=== PATIENT | female | born 1955 | race Caucasian/White ===

== ENCOUNTER 2016-07-17 16:07 | Inpatient (IN) | payer OTHER ==
[~2016-07-17] VITALS: Ht 170.2 cm; Wt 79.8 kg
[2016-07-17] MEDS ORDERED: CALC667C PO (16:41)
[2016-07-17] MEDS ORDERED: NIFE60TA7 PO (16:41)
[2016-07-17] MEDS ORDERED: BENA40TA41 PO (16:42)
[2016-07-17] MEDS ORDERED: LEVO125T75 PO (16:42)
[2016-07-17] MEDS ORDERED: PYRI50TA14 PO (16:43)
[2016-07-17] MEDS ORDERED: ISON300T72 PO (16:44)
[2016-07-17] MEDS ORDERED: PENT400T2 PO (16:44)
[2016-07-17] MEDS ORDERED: ONDANSETRON 4 MG INJ IV STA (16:45)
[2016-07-17] MEDS ORDERED: FER325 PO (16:45)
[2016-07-17] MEDS ORDERED: ACETAMINOPHEN 500 MG TAB PO STA (16:46)
[2016-07-17 17:08] LABS: ADD SCAN DIFF NO
[2016-07-17 17:11] LABS: ABNORMAL IP MESSAGE 1; HEMOGLOBIN 10.1 g/dl (12.0-16.0); MEAN CORPUSCULAR HEMOGLOBIN 28.9 pg (29.0-33.0); MEAN CORPUSCULAR HGB CONC 32.6 g/dl (32.0-37.0); MEAN CORPUSCULAR VOLUME 88.8 fl (82.0-101.0); MEAN PLATELET VOLUME 11.2 fl (7.4-10.4); PLATELET COUNT 213 10^3/UL (140-415); RED BLOOD COUNT 3.49 10^6/ul (4.20-5.40); RED CELL DISTRIBUTION WIDTH 14.2 % (11.5-14.5); WHITE BLOOD COUNT 10.5 10^3/ul (4.8-10.8)
[2016-07-17 17:24] LABS: ALBUMIN 3.7 g/dl (3.3-4.9); CHLORIDE 94 mmol/L (97-110)
[2016-07-17 17:25] LABS: POTASSIUM 4.3 mmol/L (3.5-5.1); SODIUM 140 mmol/L (135-144)
[2016-07-17 17:27] LABS: ALANINE AMINOTRANSFERASE 40 IU/L (13-69); ALKALINE PHOSPHATASE 264 IU/L (42-121); ANION GAP 20 (8-16); ASPARTATE AMINO TRANSFERASE 64 IU/L (15-46); BILIRUBIN,INDIRECT 0.1 mg/dl (0-1.1); BILIRUBIN,TOTAL 0.1 mg/dl (0.2-1.3); BLOOD UREA NITROGEN 21 mg/dl (7-20); CARBON DIOXIDE 30 mmol/L (21-31); CREATININE 2.89 mg/dl (0.44-1.00); TOTAL PROTEIN 7.4 g/dl (6.1-8.1)
[2016-07-17 17:28] LABS: CALCIUM 8.2 mg/dl (8.4-10.2); GLUCOSE 135 mg/dl (70-220)
--- NOTE | 2016-07-17 17:30 | RADRPT ---
PROCEDURE: Chest Radiograph. CLINICAL INDICATION: Chest pain TECHNIQUE: Single frontal chest radiograph. COMPARISON: None available FINDINGS: A right chest wall tunneled hemodialysis catheters in place with distal tip in the region of the sup erior vena cava. The cardiomediastinal silhouette is within normal limits. No infiltrate or effus ion is seen. The bones are intact. IMPRESSION: 1. No evidence of acute cardiopulmonary disease. 2. Right chest wall tunneled hemodialysis catheter. RPTAT: HJBF .Nba Flynn MD, MD Date Time Electronically viewed and signed by .Nba Flynn MD, MD on 07/17/2016 17:30 .B/
[2016-07-17 17:42] LABS: TROPONIN-I < 0.012 ng/ml (0.00-0.12)
[2016-07-17 17:46] LABS: LYMPHOCYTES # 0.4 10^3/ul (0.8-2.9); NEUTROPHIL # 8.8 10^3/ul (1.6-7.5)
[2016-07-17 17:48] LABS: PLATELET ESTIMATE PLT APPEAR ADEQUATE
[2016-07-17] MEDS ORDERED: CEFEPIME 2GM/50 ML (PMX) 50 ML IVPB STA (18:08)
[2016-07-17] MEDS ORDERED: SODIUM CHLORIDE 0.9% 1L BAG IV* STA (18:08)
[2016-07-17] MEDS ORDERED: VANCOMYCIN 1 GM (PMX) 250 ML IVPB ONE (18:30)
--- NOTE | 2016-07-17 19:43 | ERA ---
ER Documentation Chief Complaint Date/Time DATE: 07/17/16 TIME: 19:37 Chief Complaint weakness, chills after dialysis HPI This is a [id number] female who is on dialysis and states that for the past few weeks every time she gets dialysis approximately 8 hours later she will develop a fever and chills and nausea. She says these symptoms will last for several hours and go away. She said that she told the dialysis center about the symptoms but that nothing is being investigated. She has no cough no headache no abdominal pain no vomiting no diarrhea no runny nose no sore throat. She does have a general feeling of malaise. Patient started dialysis in February 2016 ROS All systems reviewed and are negative except as per history of present illness. Medications Home Meds Reported Medications Ferrous Sulfate* (Ferrous Sulfate*) 325 Mg Tabec, 325 MG PO TID, TAB 07/17/16 Pentoxifylline* (Pentoxifylline*) 400 Mg Tablet.sa, 400 MG PO DAILY, TAB 07/17/16 Isoniazid* (Isoniazid*) 300 Mg Tablet, 300 MG PO DAILY, TAB 07/17/16 Pyridoxine Hcl* (Pyridoxine Hcl*) 50 Mg Tablet, 50 MG PO DAILY, TAB 07/17/16 Levothyroxine Sodium* (Levothyroxine Sodium*) 125 Mcg Tablet, 125 MCG PO BEFORE BREAKFAST, #30 TAB 07/17/16 Benazepril Hcl* (Benazepril Hcl*) 40 Mg Tablet, 40 MG PO DAILY, #30 TAB 07/17/16 Calcium Acetate* (Calcium Acetate*) 667 Mg Capsule, 1334 MG PO WITH MEALS, #30 CAP 07/17/16 Nifedipine* (Nifedipine ER*) 60 Mg Tablet.sa, 60 MG PO DAILY, TAB.SA 07/17/16 Allergies Allergies: Coded Allergies: No Known Allergy (Unverified , 07/17/16) PMhx/Soc Medical and Surgical Hx: pt denies Surgical Hx History of Surgery: No Hx Cardiac Disorders: Yes (HTN) Hx Miscellaneous Medical Probl: Yes (DM) Hx Alcohol Use: No Hx Substance Use: No Hx Tobacco Use: No Smoking Status: Never smoker FmHx Family History: No coronary disease Physical Exam Vitals Vital Signs Date Time Temp Pulse Resp B/P Pulse Ox O2 Delivery O2 Flow Rate FiO2 07/17/16 18:05 102.6 84 22 184/80 100 Room Air 07/17/16 16:39 95 20 198/80 99 Room Air 07/17/16 16:20 102.3 99 22 207/92 99 Physical Exam Const: Well-developed, well-nourished Head: Atraumatic, normocephalic Eyes: Normal Conjunctiva, PERRLA, EOMI, normal sclera, no nystagmus ENT: Normal External Ears, Nose and Mouth, moist mucus membranes. Neck: Full range of motion. No meningismus, no lymphadenopathy. Resp: Clear to auscultation bilaterally, no wheezing, rhonchi, rales Cardio: Regular rate and rhythm, no murmurs, S1 S2 present Abd: Soft, non tender x 4, non distended. Normal bowel sounds, no guarding or rebound, no pulsitile abdominal masses or bruits Skin: No petechiae or rashes, no ecchymosis , no maculopapular rash Back: No midline or flank tenderness Ext: No cyanosis, or edema, FROM x 4, normal inspection, neurovascularly intact x 4 Neur: Awake and alert, STR 5/5 x 4, sensation intact x 4, no focal findings, cerebellum intact Psych: Normal Mood and Affect Result Diagram: 07/17/16 1650 07/17/16 1650 Results 24 hrs Laboratory Tests Test 07/17/16 16:50 Alanine Aminotransferase (ALT/SGPT) 40IU/L Albumin 3.7g/dl Albumin/Globulin Ratio 1.00 Alkaline Phosphatase 264IU/L Anion Gap 20 Aspartate Amino Transf (AST/SGOT) 64IU/L Band Neutrophils % 11.0% Blood Urea Nitrogen 21mg/dl Calcium Level 8.2mg/dl Carbon Dioxide Level 30mmol/L Chloride Level 94mmol/L Creatinine 2.89mg/dl Direct Bilirubin 0.00mg/dl Globulin 3.70g/dl Glucose Level 135mg/dl Hematocrit 31.0% Hemoglobin 10.1g/dl Indirect Bilirubin 0.1mg/dl Lactic Acid Level 3.1mmol/L Large Platelets FEW Lymphocytes # 0.410^3/ul Lymphocytes % 4.0% Mean Corpuscular Hemoglobin 28.9pg Mean Corpuscular Hemoglobin Concent 32.6g/dl Mean Corpuscular Volume 88.8fl Mean Platelet Volume 11.2fl Metamyelocytes # 0.1 Metamyelocytes % 1.0% Neutrophils # 8.810^3/ul Neutrophils % 84.0% Platelet Count 09653^3/UL Platelet Estimate PLT APPEAR ADEQUATE Potassium Level 4.3mmol/L Red Blood Count 3.4910^6/ul Red Cell Distribution Width 14.2% Sodium Level 140mmol/L Total Bilirubin 0.1mg/dl Total Protein 7.4g/dl Troponin I < 0.012ng/ml White Blood Count 10.510^3/ul Current Medications Medications (Trade) Dose Ordered Sig/Aries Route PRN Reason Start Time Stop Time Status Last Admin Dose Admin Ondansetron HCl (Zofran Inj) 4 mg ONCE STAT IV 07/17/16 16:45 07/17/16 16:47 DC 07/17/16 17:01 Acetaminophen (Tylenol Tab) 1,000 mg ONCE STAT PO 07/17/16 16:46 07/17/16 16:48 DC 07/17/16 17:01 Sodium Chloride 2420 ml 2,420 ml BOLUS OVER 2 HOURS STAT IV* 07/17/16 18:08 07/17/16 18:13 DC 07/17/16 18:44 Cefepime HCl 50 ml @ 100 mls/hr ONCE STAT IVPB 07/17/16 18:08 07/17/16 18:37 DC 07/17/16 18:53 Vancomycin HCl (Vancocin) 250 ml @ 125 mls/hr ONCE ONCE IVPB 07/17/16 18:30 07/17/16 20:29 07/17/16 19:33 Procedures/MDM PROCEDURE: Chest Radiograph. CLINICAL INDICATION: Chest pain TECHNIQUE: Single frontal chest radiograph. COMPARISON: None available FINDINGS: A right chest wall tunneled hemodialysis catheters in place with distal tip in the region of the superior vena cava. The cardiomediastinal silhouette is within normal limits. No infiltrate or effusion is seen. The bones are intact. IMPRESSION: 1. No evidence of acute cardiopulmonary disease. 2. Right chest wall tunneled hemodialysis catheter. RPTAT: HJBF .Nba Flynn MD, MD Date Time Electronically viewed and signed by .Nba Flynn MD, MD on 2016 17:30 .B/ CC: CRESCENCIO ART DO Pending patient's urine cath assuming she makes little urine. Possibly UTI. Very strange pattern of fever after dialysis. I doubt this could be line sepsis but is a possibility. Her lactic acid level is elevated at 3.1 meeting criteria for sepsis and the patient is febrile. Will admit the patient for sepsis workup. She is getting sepsis fluid resuscitation even though she is a dialysis patient will monitor this closely and watch for volume overload due to aggressive fluids if this does occur I will hold fluid resuscitation EKG: Rate/Rhythm: Normal Sinus Rhythm,NL intervals QRS, ST, QT: NORMAL IL, QRS, QT] Impression: NORMAL EKG Admit MDM: Patient's infectious symptoms have not stabilized and the patient is at risk of rapid decompensation. The patient will be admitted for careful hydration, antibiotic therapy, and infectious source control. Severe Sepsis criteria: Infectious source: Unknown possibly line End organ damage indicated by: [Elevated lactate, chronic renal failure Lactate > 2.0 mmol/L Hypotension (SBP < 90 or >40 mmHG drop or MAP < 65) Acute Resp Failure (sat < 92% w/o oxygen) [employer] > 2.0 INR > 1.5 Plt < 100 Bili > 2 Sepsis Management: Time of recognition of severe sepsis/septic shock: 1800 cathy] Within 3 hours of recognition: Blood cultures x 2 before broad-spectrum antibiotics: [xYes 30 ml/kg NS bolus yes completed Initial lactate 3.1 Repeat lactate pending ot indicated as initial lactate < 2.0 Septic Shock Assessment: Any lactic acid > 4.0 ]No Persistent hypotension (SBP < 90 or 40 mmHg drop, MAP < 65) despite 30 mL/kg IV fluid bolus ]No Accepting Care Team Current data and ongoing care discussed. Time: [2014] Admitting Physician: [duncan] Tire Repairman(s): Outstanding Data: []None Critical Care Time: 30 minutes Treatments/Evaluations: Close monitoring and treatment of unstable vital signs, cardiorespiratory, and neurologic status, while maintaining tight balance of fluid, respiratory, and cardiac interventions. This includes the administration of emergency fluid management while maintaining close respiratory support as well as the provision of immediate and broad-spectrum antibiotic therapy, while performing a simultaneous assessment for possible sources in order to direct targeted therapy. This time includes discussing the case with the patient and the patient's family. This time also includes the consideration for invasive and chemical support to prevent cardiopulmonary collapse. This time does not include all procedures stated elsewhere in this record. This time also includes reviewing old records, labs and radiological studies. This time includes examining and re-examining the patient. Additionally, this time also includes arranging care with admitting and consulting physicians. Departure Diagnosis: Primary Impression: Sepsis Qualified Code: A41.9 - Sepsis, due to unspecified organism Condition: Stable CRESCENCIO ART DO Jul 17, 2016 19:42
[2016-07-17] MEDS ORDERED: SOD CHLORIDE 0.9% 1,000 ML IV SCH (20:10)
[2016-07-17] MEDS ORDERED: ACETAMINOPHEN 325 MG TAB PO PRN (20:30)
[2016-07-17] MEDS ORDERED: ONDANSETRON 4 MG INJ IV PRN (20:30)
[2016-07-17] MEDS ORDERED: NA PHOSPHATE/BIPHOS 133 ML ENEMA PR PRN (21:00)
[2016-07-17] MEDS ORDERED: NACL 0.9% 3 ML SYG IV SCH (21:00)
[2016-07-17] MEDS ORDERED: NITROGLYCERIN (SL) 0.4 MG TAB SL PRN (21:00)
[2016-07-17] MEDS ORDERED: LORAZEPAM 2 MG INJ IV PRN (21:00)
[2016-07-17] MEDS ORDERED: MAGNESIUM HYDROXIDE 30ML CUP PO PRN (21:00)
[2016-07-17] MEDS ORDERED: DOCUSATE SODIUM 100 MG CAP PO PRN (21:00)
[2016-07-17] MEDS ORDERED: VANCOMYCIN IV PER PHARMACY XX SCH (21:00)
[2016-07-17] MEDS ORDERED: ALBUTEROL/IPRATROPIUM (NEB) 3 ML AMP HHN PRN (21:00)
[2016-07-17 22:00] VITALS: TEMP 99.4
[2016-07-17 22:55] VITALS: PULSE 74
[2016-07-17 23:00] VITALS: Ht 170.2 cm; Wt 79.8 kg
[2016-07-17] MEDS: FERROUS SULFATE (EC) 325 MG TAB PO SCH (23:35)
[2016-07-17] MEDS: HEPARIN 5,000 UNIT/0.5 ML SYG SC SCH (23:35)
[2016-07-17] MEDS: SOD CHLORIDE 0.9% 1,000 ML IV SCH (23:36)
[2016-07-18] VITALS (12 sets, daily range): BP systolic 123–200; BP diastolic 59–93; PULSE 62–72; RESP 17–21
[2016-07-18] MEDS ORDERED: GLUCOSE GEL 15 GRAM TUBE PO PRN ×2 (05:30)
[2016-07-18] MEDS ORDERED: GLUCOSE GEL 15 GRAM TUBE BUCCAL PRN (05:30)
[2016-07-18] MEDS ORDERED: GLUCAGON 1 MG INJ IM PRN (05:30)
[2016-07-18] MEDS ORDERED: DEXTROSE 50% 50 ML SYRINGE IV PRN ×2 (05:30)
--- NOTE | 2016-07-18 06:20 | HP ---
DATE OF ADMISSION: 07/17/2016 The patient was seen and examined by me on 07/17/2016 at 8:40 p.m. A 60-year-old female. CHIEF COMPLAINT: Weakness and chills after dialysis. HISTORY OF PRESENT ILLNESS: This is a 60-year-old female with past medical history of end-stage lele al disease on dialysis, type 2 diabetes who has been having weakness and chill symptoms apparently f or the past few weeks every time after dialysis. The patient has been developing fever and chills. This has occurred over the last few dialysis sessions over the last few weeks. She also has some n ausea symptoms. The symptoms appear to last for several hours and then go away. She apparently inf ormed the dialysis center about her symptoms, but no further workup was performed. The patient did start dialysis in February of 2016 for end-stage renal disease. She is also having malaise symptoms. No vomiting, no sore throat, no diarrhea, no constipation, no fevers or chills. When she came int o the ER today, however, she did have a temperature of 102.3. She is also hypertensive urgency. Sy stolic blood pressure was in the 200s and blood tests were performed initially that showed elevated lactic acid of 3.1 and the patient was given IV fluids and IV antibiotics in the ER. PAST MEDICAL HISTORY: As above. ALLERGIES: NO KNOWN DRUG ALLERGIES. MEDICATIONS AT HOME: 1. Isoniazid 300 mg daily. 2. Ferrous sulfate 325 mg t.i.d. 3. Pentoxifylline 400 mg daily. 4. Benazepril 40 mg daily. 5. Nifedipine ER 60 mg daily. 6. Calcium acetate 1300 mg with meals. 7. Levothyroxine 125 mcg before breakfast. 8. Pyridoxine 50 mg daily. PAST SURGICAL HISTORY: None. SOCIAL HISTORY: Negative for smoking, drinking, or IV drug abuse. FAMILY HISTORY: Noncontributory. PHYSICAL EXAMINATION: VITAL SIGNS: Today, T-max 102.6, pulse 84 to 99, respirations 20 to 22, blood pressure 207 to 184 s ystolic over 92 to 80 diastolic, saturating at 100% on room air. GENERAL: The patient is lying in bed, answering questions appropriately. No acute distress. HEENT: Pupils equal, round, react to light. Extraocular muscles intact. NECK: Supple, no thyromegaly. LUNGS: Clear to auscultation bilaterally. CARDIOVASCULAR: S1, S2 heard. No rubs or gallops. ABDOMEN: Soft, nontender, nondistended. Normal bowel sounds. No rebound or guarding. MUSCULOSKELETAL: No lower extremity edema bilaterally. NEUROLOGIC: No focal deficits. LABORATORIES: CBC is completely normal. The sodium 140, potassium 4.3, chloride 94, CO2 30, BUN 21 , creatinine 2.89, glucose 135. Lactic acid 3.1. LFTs are essentially normal, although the AST is a little high at 64, alkaline phosphatase is 264. IMAGING: The patient had a chest x-ray that showed no evidence of any acute cardiopulmonary disease . ASSESSMENT AND PLAN: A 60-year-old female coming in with weakness and nausea after dialysis with si gns of fever and lactic acidosis, unclear source. 1. Sepsis. Again, the patient has elevated temperature and elevated lactic acid levels. Chest x-r ay did not show any signs of any overt respiratory infection, unclear source of the patient's lactic acidosis, so for now, we will put her on broad spectrum antibiotics. We will follow up UA results and urine culture results, and check blood culture results as well. Ideally would like to have a so urce for starting antibiotics, but the patient will need treatment. The patient apparently may need treatment at this point. Will continue to trend her lactic acid, give her aggressive IV fluid resu scitation as well. Follow up TSH, A1c, and lipid panels as well. Continue IV fluids. Get an infec tious disease consult as well. 2. End-stage renal disease on dialysis. Will get a renal consult as well. 3. Questionable history of tuberculosis. The patient apparently has been taking Isoniazid and ronaldo min B6 as well. Continue to monitor for now. Consider checking PPD. We are trying to obtain medic al records for further investigation of this. 4. Deep venous thrombosis prophylaxis, heparin. 5. Gastrointestinal prophylaxis. Proton pump inhibitor. 6. Type 2 diabetes, again with sliding scale insulin. Check A1c as well. We will also consider ph ysical therapy consult as well. Dictated By: LUIS ENRIQUE RIOS Conf#: [id number] DID#: [id number]
[2016-07-18] MEDS: LEVOTHYROXINE 125 MCG TAB PO SCH (06:25)
[2016-07-18] MEDS: ACETAMINOPHEN 325 MG TAB PO PRN ×2 (06:36→08:28)
[2016-07-18 07:04] LABS: ADD SCAN DIFF NO
[2016-07-18 07:20] LABS: BASOPHIL # 0.1 10^3/ul (0.0-0.1); BASOPHILS % 0.3 % (0.0-2.0); EOSINOPHILS # 0.2 10^3/ul (0.0-0.5); EOSINOPHILS % 0.8 % (0.0-7.0); HEMATOCRIT 26.7 % (37.0-47.0); HEMOGLOBIN 8.5 g/dl (12.0-16.0); LYMPHOCYTES % 4.8 % (15.0-51.0); MEAN CORPUSCULAR HEMOGLOBIN 29.1 pg (29.0-33.0); MEAN CORPUSCULAR HGB CONC 31.8 g/dl (32.0-37.0); MEAN CORPUSCULAR VOLUME 91.4 fl (82.0-101.0); MEAN PLATELET VOLUME 11.4 fl (7.4-10.4); MONOCYTE # 1.4 10^3/ul (0.3-0.9); MONOCYTES % 6.6 % (0.0-11.0); NEUTROPHIL # 18.3 10^3/ul (1.6-7.5); NEUTROPHILS % 86.7 % (39.0-77.0); PLATELET COUNT 188 10^3/UL (140-415); RED BLOOD COUNT 2.92 10^6/ul (4.20-5.40); RED CELL DISTRIBUTION WIDTH 14.9 % (11.5-14.5); WHITE BLOOD COUNT 21.1 10^3/ul (4.8-10.8)
[2016-07-18] MEDS ORDERED: INSULIN ASPART [NOVOLOG] 3 ML PEN SC SCH ×2 (07:30→09:00)
[2016-07-18] MEDS: Insulin NOVOLOG SS MILD Algorithm (SS with meals and bedtime) SC SCH ×4 (07:35→20:50)
[2016-07-18 07:43] LABS: THYROID STIMULATING HORMONE 3.98 MIU/L (0.465-4.680)
[2016-07-18 08:00] LABS: POTASSIUM 4.8 mmol/L (3.5-5.1)
[2016-07-18 08:02] LABS: CREATININE 4.02 mg/dl (0.44-1.00)
[2016-07-18 08:03] LABS: CALCIUM 7.2 mg/dl (8.4-10.2); MAGNESIUM 1.8 mg/dl (1.7-2.5)
[2016-07-18] MEDS: ISONIAZID 300 MG TAB PO SCH (08:27)
[2016-07-18] MEDS: PYRIDOXINE 50 MG TAB PO SCH (08:27)
[2016-07-18] MEDS: SOD CHLORIDE 0.9% 1,000 ML IV SCH ×2 (08:29→17:31)
[2016-07-18] MEDS: FERROUS SULFATE (EC) 325 MG TAB PO SCH ×3 (08:29→20:46)
[2016-07-18] MEDS: CALCIUM ACETATE 667 MG CAP PO SCH ×3 (08:29→17:31)
[2016-07-18] MEDS: PENTOXIFYLLINE (SR) 400 MG TAB PO SCH (08:33)
[2016-07-18] MEDS: HEPARIN 5,000 UNIT/0.5 ML SYG SC SCH ×2 (08:34→20:47)
[2016-07-18 08:48] LABS: ADD UMIC YES; URINE BILIRUBIN (Dip) NEGATIVE (NEGATIVE); URINE BLOOD (Dip) NEGATIVE (NEGATIVE); URINE COLOR LT. YELLOW (YELLOW); URINE KETONES (Dip) NEGATIVE (NEGATIVE); URINE LEUKOCYTE ESTERASE (Dip) NEGATIVE (NEGATIVE); URINE NITRITE (Dip) NEGATIVE (NEGATIVE); URINE TOTAL PROTEIN (Dip) 4+ (NEGATIVE); URINE UROBILINOGEN (Dip) 0.2 E.U./dL (0.1-1.0)
--- NOTE | 2016-07-18 09:49 | CONS ---
DATE OF ADMISSION: 07/17/2016 DATE OF CONSULTATION: REASON FOR CONSULTATION: End-stage renal disease. REQUESTING PHYSICIAN: Manav Patton MD HISTORY OF PRESENT ILLNESS: This is a 60-year-old female with a past medical history of end-stage r enal disease on dialysis Saturday, , Saturday; history of diabetes, history of hypertension w ho presents to [facility] with chills after hemodialysis. The patient states over the last several weeks during the course of dialysis and after dialysis patient develops fevers, ch ills associated with some nausea. The symptoms go away after several hours. The patient informed h er dialysis center of her symptoms; however, but no workup was done. The patient as a result came i [facility] for ongoing fevers and chills. While at [facility] on admission the patient was febrile with a temperature of 102.6. The patient was started on bro ad spectrum antibiotics and admitted to telemetry. Chest x-ray was performed in the emergency room which showed no acute findings. In terms of patient's renal history, the patient was initiated on hemodialysis in February for diabet es, hypertension and she has been going to [facility] in outpatient center. There have been no repo rts of hemoptysis, hemetemesis, hematochezia. PAST MEDICAL HISTORY: As stated above, history of end-stage renal disease, hypertension, diabetes, mineral bone disorder, anemia. PAST SURGICAL HISTORY: Status post PermCath placement. ALLERGIES: NO KNOWN DRUG ALLERGIES. MEDICATIONS: Patient's medications have been reviewed. SOCIAL HISTORY: Does not drink, smoke or do drugs. FAMILY HISTORY: Noncontributory. REVIEW OF SYSTEMS: A 14-point review of systems was conducted. Pertinent positives stated in HPI, otherwise negative. PHYSICAL EXAMINATION: VITAL SIGNS: Blood pressure 123/59, respirations 17, pulse 73, temperature 99.6. HEENT: Head is normocephalic. Pupils are reactive to light. NECK: Supple. HEART: Regular rate. LUNGS: Show diminished breath sounds at the base. ABDOMEN: Soft, nontender to palpation without rebound or guarding. EXTREMITIES: Negative for clubbing, cyanosis. No edema. DERMATOLOGIC: No rashes. MUSCULOSKELETAL: No joint effusions. NEUROLOGIC: No focal deficits. CHEST: The patient has a PermCath that is clean, dry and intact, nontender. LABORATORY DATA: Shows sodium 140, potassium 4. , chloride 102, BUN 27, creatinine 4.02, phosph orus 5.0, calcium 7.2. White count 21.1, hemoglobin 8.5, hematocrit 26.7, platelet count is 188. ASSESSMENT AND PLAN: This is a 60-year-old female who presents with: 1. End-stage renal disease. The patient is on dialysis Saturday, , Saturday, last hemodialy sis was yesterday. Anticipate hemodialysis tomorrow for 3 hours, 2K bath, calcium 2.5. 2. Sepsis, concerning for possible line infection. The patient's clinical symptoms are consistent with line infection as she develops her symptoms following dialysis. Plan is to check blood culture s from the dialysis catheter. We will check peripheral cultures. If patient continues to have ongo ing symptoms will have PermCath removed if blood cultures are noted to be positive. 3. Anemia of chronic disease. Continue to monitor H and H levels. Give Epogen following dialysis. 4. Mineral bone disorder. We will monitor calcium and phosphorus levels. Continue phos binder. 5. Hypertension. Continue current blood pressure regimen. 6. Diabetes, continue Accu-Cheks and sliding scale. 7. Gastrointestinal and deep venous thrombosis prophylaxis. Continue proton pump inhibitor and hep reinaldo. Thank you, Dr. Patton, for this interesting consult. It will be a pleasure to follow the patient with you throughout the hospital course. Dictated By: LY MENDEZ/FADUMO Conf#: [id number] DID#: [id number]
[2016-07-18 09:52] LABS: URINE RBCS NONE SEEN /HPF ([, 0])
--- NOTE | 2016-07-18 12:24 | PN ---
Date/Time of Note Date/Time of Note DATE: 07/18/16 TIME: 12:12 Assessment/Plan VTE Prophylaxis VTE Prophylaxis Intervention: heparin Lines/Catheters IV Catheter Type (from Nrs): Saline Lock Assessment/Plan Assessment/Plan 1. Bacteremia, gram negative aziza, on antibiotics, follow up with final culture 2. Sepsis, on antibiotics 3. End-stage renal disease. TTS 4. Anemia of chronic kidney disease. follow up with H/H 5. Mineral bone disorder. We will monitor calcium and phosphorus levels. Continue phos binder. 6. Hypertension. Continue current blood pressure regimen. 7. Diabetes, continue Accu-Cheks and sliding scale. 8. Gastrointestinal and deep venous thrombosis prophylaxis. Continue proton pump inhibitor and heparin. Subjective 24 Hr Interval Summary Free Text/Dictation no pain. no dysuria Exam/Review of Systems Vital Signs Vitals Vital Signs Date Time Temp Pulse Resp B/P Pulse Ox O2 Delivery O2 Flow Rate FiO2 07/18/16 11:49 98.4 69 18 172/77 100 07/18/16 00:01 2.0 07/17/16 21:13 Nasal Cannula Intake and Output 07/17/16 07/17/16 07/18/16 15:00 23:00 07:00 Intake Total 300 ml 1384 ml Balance 300 ml 1384 ml Exam Constitutional: alert, oriented, well developed Psych: nl mood/affect, no complaints Head: atraumatic, normocephalic Eyes: EOMI, nl conjunctiva, nl lids ENMT: nl external ears & nose, nl lips & teeth, nl nasal mucosa & septum Neck: non-tender, supple Respiratory: clear to auscultation, normal air movement, No congested cough, No crackles/rales, No diminished breath sounds, No intercostal retraction, No labored breathing, No other, No respirations, No tactile fremitus, No wheezing Cardiovascular: nl pulses, regular rate and rhythm, No S3, No S4, No bruits, No diastolic murmur, No edema, No gallop, No irregular rhythm, No jugular venous distention (JVD), No murmurs/extra sounds, No other, No rub, No systolic murmur Gastrointestinal: nl liver, spleen, non-tender, soft, No ascites, No bowel sounds, No distended, No firm, No hepatomegaly, No mass , No other, No rebound or guarding, No splenomegaly, No surgical scars, No tender Musculoskeletal: nl extremities to inspection Extremities: normal pulses, No calf tenderness, No clubbing, No cyanosis, No edema, No other, No palpable cord, No pitting pedal edema, No tenderness Neurological: COMPUT[employer] PROFESSIONAL II-XII intact, nl mental status, nl speech, nl strength Skin: nl turgor Lymph: nl lymph nodes Results Result Diagram: 07/18/16 0500 07/18/16 0500 Results 24 hrs Laboratory Tests Test 07/17/16 16:50 07/17/16 19:50 07/17/16 22:06 07/18/16 05:00 Alanine Aminotransferase (ALT/SGPT) 40 Albumin 3.7 Albumin/Globulin Ratio 1.00 Alkaline Phosphatase 264 H Anion Gap 20 H 16 Aspartate Amino Transf (AST/SGOT) 64 H Band Neutrophils % 11.0 H Blood Urea Nitrogen 21 H 26 H Calcium Level 8.2 L 7.2 L Carbon Dioxide Level 30 27 Chloride Level 94 L 102 Creatinine 2.89 H 4.02 #H Direct Bilirubin 0.00 Globulin 3.70 H Glucose Level 135 93 # Hematocrit 31.0 L 26.7 L Hemoglobin 10.1 L 8.5 L Indirect Bilirubin 0.1 Lactic Acid Level 3.1 H 2.7 H 2.4 H Large Platelets FEW Lymphocytes # 0.4 L 1.0 Lymphocytes % 4.0 L 4.8 L Mean Corpuscular Hemoglobin 28.9 L 29.1 Mean Corpuscular Hemoglobin Concent 32.6 31.8 L Mean Corpuscular Volume 88.8 91.4 Mean Platelet Volume 11.2 H 11.4 H Metamyelocytes # 0.1 Metamyelocytes % 1.0 H Neutrophils # 8.8 H 18.3 H Neutrophils % 84.0 H 86.7 H Platelet Count 213 188 Platelet Estimate PLT APPEAR ADEQUATE Potassium Level 4.3 4.8 Red Blood Count 3.49 L 2.92 L Red Cell Distribution Width 14.2 14.9 H Sodium Level 140 140 Total Bilirubin 0.1 L Total Protein 7.4 Troponin I < 0.012 White Blood Count 10.5 21.1 #H Free Thyroxine 1.10 Basophils # 0.1 Basophils % 0.3 Eosinophils # 0.2 Eosinophils % 0.8 Magnesium Level 1.8 Monocytes # 1.4 H Monocytes % 6.6 Nucleated Red Blood Cells # 0.0 Nucleated Red Blood Cells % 0.0 Phosphorus Level 5.0 H Test 07/18/16 05:52 07/18/16 06:40 07/18/16 07:58 07/18/16 11:58 Cholesterol Level 203 H Cholesterol/HDL Ratio 7.0 HDL Cholesterol 29 L Hemoglobin A1c 8.1 H LDL Cholesterol, Calculated 142 Thyroid Stimulating Hormone (TSH) 3.980 Triglycerides Level 159 H Urine Bilirubin NEGATIVE Urine Clarity CLEAR Urine Color LT. YELLOW Urine Epithelial Cells OCCASIONAL Urine Glucose 0.1% H Urine Hemoglobin NEGATIVE Urine Ketones NEGATIVE Urine Leukocyte Esterase NEGATIVE Urine Microscopic RBC NONE SEEN Urine Microscopic WBC NONE SEEN Urine Nitrite NEGATIVE Urine Specific [place] 1.015 Urine Total Protein 4+ H Urine Urobilinogen 0.2 E.U./dL Urine pH 7.0 Bedside Glucose 100 145 Medications Medications Current Medications Ondansetron HCl (Zofran Inj) 4 mg Q6H PRN IV NAUSEA AND/OR VOMITING; Start at 21:00 Acetaminophen (Tylenol Tab) 650 mg Q6H PRN PO PAIN LEVEL 1-3 OR FEVER Last administered on 07/18/16 08:28; Admin Dose 650 MG; Start 07/17/16 at 21:00 Acetaminophen/ Hydrocodone Bitart ([place] (5/325)) 1 tab Q6H PRN PO MODERATE PAIN LEVEL 4-6; Start 07/17/16 at 21:00 Morphine Sulfate (morphine) 2 mg Q4H PRN IV SEVERE PAIN LEVEL 7-10; Start 07/17 at 21:00 Docusate Sodium (Colace) 100 mg Q12H PRN PO CONSTIPATION; Start 07/17/16 at 21: 00 Magnesium Hydroxide (Milk Of Mag) 30 ml DAILY PRN PO CONSTIPATION; Start at 21:00 Sodium Biphosphate/ Sodium Phosphate (Fleet Enema) 133 ml DAILY PRN [place] CONSTIPATION; Start 07/17/16 at 21:00 Heparin Sodium (Porcine) (Heparin (5000 Units/0.5 ml)) 5,000 unit Q12 SC Last administered on 07/18/16 08:34; Admin Dose 5,000 UNIT; Start 07/17/16 at 23:00 Lorazepam 0.5 mg 0.5 mg Q6H PRN IV ANXIETY; Start 07/17/16 at 21:00 Sodium Chloride (NS) 1,000 ml @ 100 mls/hr Q10H IV Last administered on 23:36; Admin Dose 100 MLS/HR; Start 07/17/16 at 23:00 Vancomycin HCl (Vanco Iv Per Pharmacy) VANCOMYCIN PER PHARMACY NOTE XX ; Start 07/17/16 at 21:00 Hydralazine HCl (Apresoline) 10 mg Q6H PRN IV ELEVATED BLOOD PRESSURE; Start at 21:00 Nitroglycerin (Nitroglycerin (Sl Tab) 0.4 Mg) 1 tab Q5M PRN SL ANGINA; Start at 21:00 Ferrous Sulfate (Ferrous Sulfate (Ec)) 325 mg TID PO Last administered on 12:06; Admin Dose 325 MG; Start 07/17/16 at 21:00 Isoniazid (Isoniazid) 300 mg DAILY PO Last administered on 07/18/16 08:27; Admin Dose 300 MG; Start 07/18/16 at 09:00 Pentoxifylline (Trental) 400 mg DAILY PO Last administered on 07/18/16 08:33; Admin Dose 400 MG; Start 07/18/16 at 09:00 Pyridoxine HCl 50 mg 50 mg DAILY PO Last administered on 07/18/16 08:27; Admin Dose 50 MG; Start 07/18/16 at 09:00 Cefepime HCl (Maxipime 2gm/50 ml (Pmx)) 50 ml @ 100 mls/hr Q24H IVPB ; Start at 18:00 Miscellaneous Information 1 ea NOTE XX ; Start 07/18/16 at 05:30 Glucose (Glutose) 15 gm Q15M PRN PO DECREASED GLUCOSE; Start 07/18/16 at 05:30 Glucose (Glutose) 22.5 gm Q15M PRN PO DECREASED GLUCOSE; Start 07/18/16 at 05: 30 Dextrose (D50w Syringe) 25 ml Q15M PRN IV DECREASED GLUCOSE; Start 07/18/16 at 05:30 Dextrose (D50w Syringe) 50 ml Q15M PRN IV DECREASED GLUCOSE; Start 07/18/16 at 05:30 Glucagon (Glucagen) 1 mg Q15M PRN IM DECREASED GLUCOSE; Start 07/18/16 at 05:30 Glucose (Glutose) 15 gm Q15M PRN BUCCAL DECREASED GLUCOSE; Start 07/18/16 at 05 :30 Diagnostic Test (Pha) (Accucheck) 1 ea 02 XX ; Start 07/18/16 at 08:00 Miscellaneous Information (*Rx Drug Level Order Reminder*) VANCOMYCIN RANDOM LEVEL 3... ONCE ONCE XX ; Start 07/19/16 at 05:00; Stop 07/19/16 at 05:01 CHANDU LUNA MD Jul 18, 2016 12:23
[2016-07-18] MEDS: CEFEPIME 2GM/50 ML (PMX) 50 ML IVPB SCH (17:31)
[2016-07-18] MEDS: ONDANSETRON 4 MG INJ IV PRN (19:56)
[2016-07-18] MEDS: hydrALAzine 20 MG INJ IV PRN (21:46)
[2016-07-18] MEDS: ACCUCHECK 2 AM XX SCH (21:54)
[2016-07-19] VITALS (30 sets, daily range): BP systolic 134–195; BP diastolic 65–100; PULSE 64–161; RESP 9–22
[2016-07-19] MEDS: SOD CHLORIDE 0.9% 1,000 ML IV SCH (03:28)
[2016-07-19] MEDS: LEVOTHYROXINE 125 MCG TAB PO SCH (06:00)
[2016-07-19] MEDS: Insulin NOVOLOG SS MILD Algorithm (SS with meals and bedtime) SC SCH ×4 (07:30→23:13)
[2016-07-19 07:56] LABS: ADD SCAN DIFF NO
[2016-07-19 08:00] LABS: BASOPHILS % 0.2 % (0.0-2.0); EOSINOPHILS # 0.5 10^3/ul (0.0-0.5); EOSINOPHILS % 3.5 % (0.0-7.0); HEMATOCRIT 23.6 % (37.0-47.0); HEMOGLOBIN 7.5 g/dl (12.0-16.0); LYMPHOCYTES % 7.4 % (15.0-51.0); MEAN CORPUSCULAR HEMOGLOBIN 29.3 pg (29.0-33.0); MEAN CORPUSCULAR HGB CONC 31.8 g/dl (32.0-37.0); MEAN CORPUSCULAR VOLUME 92.2 fl (82.0-101.0); MEAN PLATELET VOLUME 11.9 fl (7.4-10.4); MONOCYTE # 1.3 10^3/ul (0.3-0.9); MONOCYTES % 9.9 % (0.0-11.0); NEUTROPHIL # 10.3 10^3/ul (1.6-7.5); NEUTROPHILS % 78.5 % (39.0-77.0); PLATELET COUNT 166 10^3/UL (140-415); RED BLOOD COUNT 2.56 10^6/ul (4.20-5.40); WHITE BLOOD COUNT 13.2 10^3/ul (4.8-10.8)
[2016-07-19 08:02] LABS: POTASSIUM 4.9 mmol/L (3.5-5.1)
[2016-07-19 08:04] LABS: CREATININE 4.92 mg/dl (0.44-1.00)
[2016-07-19 08:05] LABS: CALCIUM 7.6 mg/dl (8.4-10.2)
[2016-07-19] MEDS: ISONIAZID 300 MG TAB PO SCH (09:15)
[2016-07-19] MEDS: PYRIDOXINE 50 MG TAB PO SCH (09:15)
[2016-07-19] MEDS: FERROUS SULFATE (EC) 325 MG TAB PO SCH ×3 (09:15→21:00)
[2016-07-19] MEDS: CALCIUM ACETATE 667 MG CAP PO SCH ×3 (09:16→17:30)
[2016-07-19] MEDS: PENTOXIFYLLINE (SR) 400 MG TAB PO SCH (09:16)
[2016-07-19] MEDS: HEPARIN 5,000 UNIT/0.5 ML SYG SC SCH ×2 (09:17→22:58)
[2016-07-19] MEDS ORDERED: VANCOMYCIN 1.25 GM in SOD CHLORIDE 0.9% 250 ML IVPB SCH (11:00)
[2016-07-19] MEDS ORDERED: EPOETIN 10000 UNITS/1 ML INJ (ESRD) SC SCH (11:30)
--- NOTE | 2016-07-19 11:45 | PN ---
DATE: 07/19/2016 SUBJECTIVE: Vitals are stable. The patient has been afebrile overnight. No fevers, chills, nausea , vomiting. OBJECTIVE: VITAL SIGNS: Blood pressure ____/73, respiration 18, pulse 70, temperature 98.6. HEENT: Head is normocephalic. NECK: Supple. HEART: Regular rate. LUNGS: Show diminished breath sounds at base. ABDOMEN: Soft, nontender to palpation without rebound or guarding. EXTREMITIES: Negative for clubbing, cyanosis, no edema. DERMATOLOGIC: No rashes. MUSCULOSKELETAL: No joint effusions. NEUROLOGIC: No change in exam. MEDICATIONS: Reviewed. LABORATORY DATA: Shows sodium 139, potassium 4.____, chloride 102, BUN 35, creatinine 4.92. White count 13.3, hemoglobin 7.5, hematocrit 23.6, and platelet count is 166. ASSESSMENT AND PLAN: 1. End-stage renal disease. The patient is scheduled for dialysis today for 3 hours, 2K bath, calc ium 2.1. 2. Sepsis, concern for line infection. The patient's peripheral blood cultures were positive for g negin-negative rods. Urine culture is pending. The plan at this point is to check blood cultures fro m Perm-A-Cath and another set from peripheral culture from the peripheral access. Continue current antibiotic regimen. If the patient's repeat blood cultures are positive, will remove the patient's Perm-A-Cath. We will also discuss the case with Infectious Disease for their recommendations. 2. Anemia. Continue to monitor hemoglobin and hematocrit levels. 3. We will give Epogen. The patient had a drop in hemoglobin, likely dilution. 4. Mineral bone disorder. Continue to monitor calcium and phosphorus levels. Continue phosphate b inders. 5. Hypertension. Continue current blood pressure regimen. 6. Diabetes. Continue Accu-Cheks with insulin sliding scale. 7. Gastrointestinal and deep venous thrombosis prophylaxis. Continue proton pump inhibitor and hep reinaldo. Dictated By: LY MENDEZ/FADUMO Conf#: [id number] DID#: [id number]
[2016-07-19] MEDS: ONDANSETRON 4 MG INJ IV PRN ×3 (13:36→22:55)
[2016-07-19] MEDS: morphine 2 MG INJ IV PRN (13:45)
[2016-07-19] MEDS: METOPROLOL 50 MG TAB PO SCH ×2 (14:00→22:56)
[2016-07-19] MEDS ORDERED: METOPROLOL 5 MG INJ IV ONE ×3 (14:00→15:30)
--- NOTE | 2016-07-19 14:09 | PN ---
Date/Time of Note Date/Time of Note DATE: 07/19/16 TIME: 13:49 Assessment/Plan VTE Prophylaxis VTE Prophylaxis Intervention: heparin Lines/Catheters IV Catheter Type (from Nrsg): Peripheral IV Assessment/Plan Assessment/Plan 1. Atrial fibrillation, new onset, metoprolol 2. Chest pain, ECG, echo, troponin, aspirin, metoprolol, statin, cardiology consult 3. Bacteremia, gram negative aziza, on antibiotics, follow up with final culture 4. Sepsis, on antibiotics 5. End-stage renal disease. TTS 6. Anemia of chronic kidney disease. one unit PRBC 07/19/2016 7. Mineral bone disorder. We will monitor calcium and phosphorus levels. Continue phos binder. 8. Hypertension. Continue current blood pressure regimen. 9. Diabetes, continue Accu-Cheks and sliding scale. 10. Gastrointestinal and deep venous thrombosis prophylaxis. Continue proton pump inhibitor and heparin. Subjective 24 Hr Interval Summary Free Text/Dictation frontal and left upper chest pressure like pain with shortness of breath Exam/Review of Systems Vital Signs Vitals Vital Signs Date Time Temp Pulse Resp B/P Pulse Ox O2 Delivery O2 Flow Rate FiO2 07/19/16 13:47 74 07/19/16 12:18 98.0 19 178/91 98 07/19/16 00:31 2.0 07/18/16 22:25 Room Air Intake and Output 07/18/16 07/18/16 07/19/16 15:00 23:00 07:00 Intake Total 810 ml 1319 ml Output Total 525 ml 700 ml Balance 285 ml 619 ml Exam Constitutional: alert, distress, well developed Psych: nl mood/affect, no complaints Head: atraumatic, normocephalic Eyes: EOMI, PERRL, nl conjunctiva, nl lids, nl sclera ENMT: nl external ears & nose, nl lips & teeth, nl nasal mucosa & septum Neck: non-tender, supple Respiratory: clear to auscultation, normal air movement, No congested cough, No crackles/rales, No diminished breath sounds, No intercostal retraction, No labored breathing, No other, No respirations, No tactile fremitus, No wheezing Cardiovascular: irregular rhythm, No S3, No S4, No bruits, No diastolic murmur, No edema, No gallop, No jugular venous distention (JVD), No murmurs/extra sounds, No rub, No systolic murmur Gastrointestinal: nl liver, spleen, non-tender, soft, No ascites, No bowel sounds, No distended, No firm, No hepatomegaly, No mass , No other, No rebound or guarding, No splenomegaly, No surgical scars, No tender Musculoskeletal: nl extremities to inspection Extremities: normal pulses, No calf tenderness, No clubbing, No cyanosis, No edema, No other, No palpable cord, No pitting pedal edema, No tenderness Neurological: CREDIT AND COLLECTIONS ANALYST II-XII intact, nl mental status, nl speech, nl strength Skin: nl turgor Lymph: nl lymph nodes Results Result Diagram: 07/19/16 0550 07/19/16 0550 Results 24 hrs Laboratory Tests Test 07/18/16 17:09 07/18/16 20:49 07/19/16 05:50 07/19/16 07:42 Bedside Glucose 123 122 98 Anion Gap 17 H Basophils # 0.0 Basophils % 0.2 Blood Urea Nitrogen 35 H Calcium Level 7.6 L Carbon Dioxide Level 25 Chloride Level 102 Creatinine 4.92 H Eosinophils # 0.5 Eosinophils % 3.5 Glucose Level 94 Hematocrit 23.6 L Hemoglobin 7.5 L Lymphocytes # 1.0 Lymphocytes % 7.4 L Mean Corpuscular Hemoglobin 29.3 Mean Corpuscular Hemoglobin Concent 31.8 L Mean Corpuscular Volume 92.2 Mean Platelet Volume 11.9 H Monocytes # 1.3 H Monocytes % 9.9 Neutrophils # 10.3 H Neutrophils % 78.5 H Nucleated Red Blood Cells # 0.0 Nucleated Red Blood Cells % 0.0 Platelet Count 166 Potassium Level 4.9 Random Vancomycin Level 10.5 Red Blood Count 2.56 L Red Cell Distribution Width 15.0 H Sodium Level 139 White Blood Count 13.2 #H Test 07/19/16 12:33 Bedside Glucose 144 Medications Medications Current Medications Ondansetron HCl (Zofran Inj) 4 mg Q6H PRN IV NAUSEA AND/OR VOMITING Last administered on 07/19/16 13:36; Admin Dose 4 MG; Start 07/17/16 at 21:00 Acetaminophen (Tylenol Tab) 650 mg Q6H PRN PO PAIN LEVEL 1-3 OR FEVER Last administered on 07/18/16 08:28; Admin Dose 650 MG; Start 07/17/16 at 21:00 Acetaminophen/ Hydrocodone Bitart ([place] (5/325)) 1 tab Q6H PRN PO MODERATE PAIN LEVEL 4-6; Start 07/17/16 at 21:00 Morphine Sulfate (morphine) 2 mg Q4H PRN IV SEVERE PAIN LEVEL 7-10 Last administered on 07/19/16 13:45; Admin Dose 2 MG; Start 07/17/16 at 21:00 Docusate Sodium (Colace) 100 mg Q12H PRN PO CONSTIPATION; Start 07/17/16 at 21: 00 Magnesium Hydroxide (Milk Of Mag) 30 ml DAILY PRN PO CONSTIPATION; Start at 21:00 Sodium Biphosphate/ Sodium Phosphate (Fleet Enema) 133 ml DAILY PRN [place] CONSTIPATION; Start 07/17/16 at 21:00 Heparin Sodium (Porcine) (Heparin (5000 Units/0.5 ml)) 5,000 unit Q12 SC Last administered on 07/19/16 09:17; Admin Dose 5,000 UNIT; Start 07/17/16 at 23:00 Lorazepam (Ativan) 0.5 mg Q6H PRN IV ANXIETY; Start 07/17/16 at 21:00 Vancomycin HCl (Vanco Iv Per Pharmacy) VANCOMYCIN PER PHARMACY NOTE XX ; Start 07/17/16 at 21:00 Hydralazine HCl (Apresoline) 10 mg Q6H PRN IV ELEVATED BLOOD PRESSURE Last administered on 07/18/16 21:46; Admin Dose 10 MG; Start 07/17/16 at 21:00 Nitroglycerin (Nitroglycerin (Sl Tab) 0.4 Mg) 1 tab Q5M PRN SL ANGINA; Start at 21:00 Ferrous Sulfate (Ferrous Sulfate (Ec)) 325 mg TID PO Last administered on 09:15; Admin Dose 325 MG; Start 07/17/16 at 21:00 Isoniazid (Isoniazid) 300 mg DAILY PO Last administered on 07/19/16 09:15; Admin Dose 300 MG; Start 07/18/16 at 09:00 Pentoxifylline (Trental) 400 mg DAILY PO Last administered on 07/19/16 09:16; Admin Dose 400 MG; Start 07/18/16 at 09:00 Pyridoxine HCl 50 mg 50 mg DAILY PO Last administered on 07/19/16 09:15; Admin Dose 50 MG; Start 07/18/16 at 09:00 Cefepime HCl (Maxipime 2gm/50 ml (Pmx)) 50 ml @ 100 mls/hr Q24H IVPB Last administered on 07/18/16 17:31; Admin Dose 100 MLS/HR; Start 07/18/16 at 18:00 Miscellaneous Information 1 ea NOTE XX ; Start 07/18/16 at 05:30 Glucose (Glutose) 15 gm Q15M PRN PO DECREASED GLUCOSE; Start 07/18/16 at 05:30 Glucose (Glutose) 22.5 gm Q15M PRN PO DECREASED GLUCOSE; Start 07/18/16 at 05: 30 Dextrose (D50w Syringe) 25 ml Q15M PRN IV DECREASED GLUCOSE; Start 07/18/16 at 05:30 Dextrose (D50w Syringe) 50 ml Q15M PRN IV DECREASED GLUCOSE; Start 07/18/16 at 05:30 Glucagon (Glucagen) 1 mg Q15M PRN IM DECREASED GLUCOSE; Start 07/18/16 at 05:30 Glucose (Glutose) 15 gm Q15M PRN BUCCAL DECREASED GLUCOSE; Start 07/18/16 at 05 :30 Diagnostic Test (Pha) 1 ea 1 ea 02 XX ; Start 07/18/16 at 08:00 Vancomycin HCl/ Sodium Chloride (Vancocin/NS) 250 ml @ 83.333 mls/ hr ONCE IVPB Last administered on 07/19/16 10:45; Admin Dose 83.333 MLS/HR; Start at 11:00; Stop 07/19/16 at 16:00 CHANDU LUNA MD Jul 19, 2016 13:59
[2016-07-19] MEDS ORDERED: METOPROLOL 5 MG INJ ONE (14:19)
[2016-07-19] MEDS: ASPIRIN 325 MG TAB PO SCH (14:30)
[2016-07-19] MEDS ORDERED: AMIODARONE 150MG/D5W BOLUS 100 ML IV STA (14:37)
[2016-07-19] MEDS ORDERED: DIGOXIN 500 MCG INJ IV ONE ×2 (14:51→15:00)
[2016-07-19] MEDS ORDERED: AMIODARONE 150MG/D5W BOLUS 100 ML IV ONE (15:00)
[2016-07-19 15:02] LABS: ADD SCAN DIFF NO
[2016-07-19 15:04] LABS: BASOPHILS % 0.2 % (0.0-2.0); EOSINOPHILS # 0.2 10^3/ul (0.0-0.5); EOSINOPHILS % 2.1 % (0.0-7.0); HEMATOCRIT 25.2 % (37.0-47.0); LYMPHOCYTES # 0.8 10^3/ul (0.8-2.9); MEAN CORPUSCULAR HGB CONC 31.7 g/dl (32.0-37.0); MEAN CORPUSCULAR VOLUME 91.3 fl (82.0-101.0); MONOCYTES % 8.8 % (0.0-11.0); NEUTROPHIL # 9.2 10^3/ul (1.6-7.5); NEUTROPHILS % 81.4 % (39.0-77.0); PLATELET COUNT 173 10^3/UL (140-415); RED BLOOD COUNT 2.76 10^6/ul (4.20-5.40); RED CELL DISTRIBUTION WIDTH 14.9 % (11.5-14.5); WHITE BLOOD COUNT 11.3 10^3/ul (4.8-10.8)
[2016-07-19] MEDS ORDERED: AMIODARONE 900 MG in DEXTROSE 5% 482 ML IV SCH (15:30)
[2016-07-19] MEDS ORDERED: LIDOCAINE 1% (MDV) 20 ML INJ SC ONE (15:30)
--- NOTE | 2016-07-19 16:47 | CONS ---
Date/Time of Note Date/Time of Note DATE: 07/19/16 TIME: 16:38 Assessment/Plan Assessment/Plan Additional Assessment/Plan New onset atrial fibrillation with rapid ventricular rates Sepsis with gram-negative bacteremia Acute blood loss anemia End-stage renal disease on hemodialysis Diabetes -Patient has been started on IV amiodarone, given symptoms and respiratory status, which transfer to ICU. Would recommend blood transfusion given severe anemia. Antibiotics as per infectious disease. Check echocardiogram, serial cardiac enzymes. Continue aspirin therapy, start statin. Agree with ICU transfer. Consultation Date/Type/Reason Admit Date/Time Jul 17, 2016 at 20:10 Type of Consultation: cv Reason for Consultation Atrial fibrillation Hx of Present Illness This is a 60-year-old female who was admitted with chills during hemodialysis. Patient found to have gram-negative bacteremia. Patient was undergoing hemodialysis today and became tachycardic with episodes of atrial fibrillation. She began having symptoms of palpitations and chest pain. She complained of mild shortness of breath and dizziness. Patient was given metoprolol and amiodarone with improvement in heart rate. She still complains of intermittent palpitations and intermittent chest pain. She denies any dizziness at the current time and is feeling better since heart rate has improved. Prior to this , she denies exertional chest pain or shortness of breath, dizziness or lightheadedness. She has been on hemodialysis for over a year now. 12 point review of systems was performed with all pertinent positives and negatives mentioned above and all else is negative Psychological: nl mood/affect, no complaints Past Medical History Diabetes End-stage renal disease on hemodialysis Medical History: hypertension Past Surgical History Dialysis catheter Family History Significant Family History: no pertinent family hx Social History Smoking Status: Never smoker Other Social History Lives with family Exam/Review of Systems Vital Signs Vitals Vital Signs Date Time Temp Pulse Resp B/P Pulse Ox O2 Delivery O2 Flow Rate FiO2 07/19/16 16:20 127 07/19/16 13:40 19 07/19/16 12:18 98.0 178/91 98 07/19/16 00:31 2.0 07/18/16 22:25 Room Air Intake and Output 07/18/16 07/18/16 07/19/16 15:00 23:00 07:00 Intake Total 810 ml 1319 ml Output Total 525 ml 700 ml Balance 285 ml 619 ml Exam Patient appears tired, intermittent episodes of discomfort Constitutional: alert, oriented Head: normocephalic Neck: supple Respiratory: other (Coarse breath sounds bilaterally, no wheezing) Cardiovascular: irregular rhythm, other (S1-S2 heard) Gastrointestinal: bowel sounds, non-tender, other (No guarding), soft Extremities: other (Trace edema, no cyanosis) Results Result Diagram: 07/19/16 1452 07/19/16 0550 Results 24 hrs Laboratory Tests Test 07/18/16 17:09 07/18/16 20:49 07/19/16 05:50 07/19/16 07:42 Bedside Glucose 123 122 98 Anion Gap 17 H Basophils # 0.0 Basophils % 0.2 Blood Urea Nitrogen 35 H Calcium Level 7.6 L Carbon Dioxide Level 25 Chloride Level 102 Creatinine 4.92 H Eosinophils # 0.5 Eosinophils % 3.5 Glucose Level 94 Hematocrit 23.6 L Hemoglobin 7.5 L Lymphocytes # 1.0 Lymphocytes % 7.4 L Mean Corpuscular Hemoglobin 29.3 Mean Corpuscular Hemoglobin Concent 31.8 L Mean Corpuscular Volume 92.2 Mean Platelet Volume 11.9 H Monocytes # 1.3 H Monocytes % 9.9 Neutrophils # 10.3 H Neutrophils % 78.5 H Nucleated Red Blood Cells # 0.0 Nucleated Red Blood Cells % 0.0 Platelet Count 166 Potassium Level 4.9 Random Vancomycin Level 10.5 Red Blood Count 2.56 L Red Cell Distribution Width 15.0 H Sodium Level 139 White Blood Count 13.2 #H Test 07/19/16 12:33 07/19/16 14:20 07/19/16 14:52 Bedside Glucose 144 143 Basophils # 0.0 Basophils % 0.2 Eosinophils # 0.2 Eosinophils % 2.1 Hematocrit 25.2 L Hemoglobin 8.0 L Lymphocytes # 0.8 Lymphocytes % 7.0 L Mean Corpuscular Hemoglobin 29.0 Mean Corpuscular Hemoglobin Concent 31.7 L Mean Corpuscular Volume 91.3 Mean Platelet Volume 11.0 H Monocytes # 1.0 H Monocytes % 8.8 Neutrophils # 9.2 H Neutrophils % 81.4 H Nucleated Red Blood Cells # 0.0 Nucleated Red Blood Cells % 0.0 Platelet Count 173 Red Blood Count 2.76 L Red Cell Distribution Width 14.9 H White Blood Count 11.3 H Medications Medications Current Medications Ondansetron HCl (Zofran Inj) 4 mg Q6H PRN IV NAUSEA AND/OR VOMITING Last administered on 07/19/16 13:36; Admin Dose 4 MG; Start 07/17/16 at 21:00 Acetaminophen (Tylenol Tab) 650 mg Q6H PRN PO PAIN LEVEL 1-3 OR FEVER Last administered on 07/18/16 08:28; Admin Dose 650 MG; Start 07/17/16 at 21:00 Acetaminophen/ Hydrocodone Bitart ([place] (5/325)) 1 tab Q6H PRN PO MODERATE PAIN LEVEL 4-6; Start 07/17/16 at 21:00 Morphine Sulfate (morphine) 2 mg Q4H PRN IV SEVERE PAIN LEVEL 7-10 Last administered on 07/19/16 13:45; Admin Dose 2 MG; Start 07/17/16 at 21:00 Docusate Sodium (Colace) 100 mg Q12H PRN PO CONSTIPATION; Start 07/17/16 at 21: 00 Magnesium Hydroxide (Milk Of Mag) 30 ml DAILY PRN PO CONSTIPATION; Start at 21:00 Sodium Biphosphate/ Sodium Phosphate (Fleet Enema) 133 ml DAILY PRN [place] CONSTIPATION; Start 07/17/16 at 21:00 Heparin Sodium (Porcine) (Heparin (5000 Units/0.5 ml)) 5,000 unit Q12 SC Last administered on 07/19/16 09:17; Admin Dose 5,000 UNIT; Start 07/17/16 at 23:00 Lorazepam (Ativan) 0.5 mg Q6H PRN IV ANXIETY; Start 07/17/16 at 21:00 Vancomycin HCl (Vanco Iv Per Pharmacy) VANCOMYCIN PER PHARMACY NOTE XX ; Start 07/17/16 at 21:00 Hydralazine HCl (Apresoline) 10 mg Q6H PRN IV ELEVATED BLOOD PRESSURE Last administered on 07/18/16 21:46; Admin Dose 10 MG; Start 07/17/16 at 21:00 Nitroglycerin (Nitroglycerin (Sl Tab) 0.4 Mg) 1 tab Q5M PRN SL ANGINA Last administered on 07/19/16 13:57; Admin Dose 1 TAB; Start 07/17/16 at 21:00 Ferrous Sulfate (Ferrous Sulfate (Ec)) 325 mg TID PO Last administered on 09:15; Admin Dose 325 MG; Start 07/17/16 at 21:00 Isoniazid (Isoniazid) 300 mg DAILY PO Last administered on 07/19/16 09:15; Admin Dose 300 MG; Start 07/18/16 at 09:00 Pentoxifylline (Trental) 400 mg DAILY PO Last administered on 07/19/16 09:16; Admin Dose 400 MG; Start 07/18/16 at 09:00 Pyridoxine HCl 50 mg 50 mg DAILY PO Last administered on 07/19/16 09:15; Admin Dose 50 MG; Start 07/18/16 at 09:00 Cefepime HCl (Maxipime 2gm/50 ml (Pmx)) 50 ml @ 100 mls/hr Q24H IVPB Last administered on 07/18/16 17:31; Admin Dose 100 MLS/HR; Start 07/18/16 at 18:00 Miscellaneous Information 1 ea NOTE XX ; Start 07/18/16 at 05:30 Glucose (Glutose) 15 gm Q15M PRN PO DECREASED GLUCOSE; Start 07/18/16 at 05:30 Glucose (Glutose) 22.5 gm Q15M PRN PO DECREASED GLUCOSE; Start 07/18/16 at 05: 30 Dextrose (D50w Syringe) 25 ml Q15M PRN IV DECREASED GLUCOSE; Start 07/18/16 at 05:30 Dextrose (D50w Syringe) 50 ml Q15M PRN IV DECREASED GLUCOSE; Start 07/18/16 at 05:30 Glucagon (Glucagen) 1 mg Q15M PRN IM DECREASED GLUCOSE; Start 07/18/16 at 05:30 Glucose (Glutose) 15 gm Q15M PRN BUCCAL DECREASED GLUCOSE; Start 07/18/16 at 05 :30 Diagnostic Test (Pha) (Accucheck) 1 ea 02 XX ; Start 07/18/16 at 08:00 Metoprolol Tartrate (Lopressor) 50 mg BID PO ; Start 07/19/16 at 14:00 Aspirin 325 mg 325 mg DAILY PO ; Start 07/19/16 at 14:30 Amiodarone HCl/ Dextrose (Cordarone Iv/ D5W) 500 ml @ 0 mls/hr Q0M IV Last administered on 07/19/16 16:21; Admin Dose 33.4 MLS/HR; Start 07/19/16 at 15:30 ; Stop 3/17/17 at 15:29 Morphine Sulfate (morphine) 2 mg ONCE ONCE IV ; Start 07/19/16 at 17:00; Stop 07/19/16 at 17:01 Procedures Procedures ECG performed on July 17 demonstrates sinus rhythm at 91 bpm, poor R-wave progression, QRS 78 ms, nonspecific STT wave abnormalities Multiple ECGs currently performed demonstrates atrial fibrillation with rapid ventricular rates, QRS 80 ms, nonspecific STT wave abnormalities Filipe Silveira DO Jul 19, 2016 16:47
[2016-07-19] MEDS ORDERED: morphine 2 MG INJ IV ONE (17:00)
[2016-07-19 17:02] LABS: CHLORIDE 101 mmol/L (97-110); SODIUM 140 mmol/L (135-144)
[2016-07-19 17:05] LABS: ANION GAP 18 (8-16); BLOOD UREA NITROGEN 17 mg/dl (7-20); CARBON DIOXIDE 25 mmol/L (21-31); CREATINE KINASE 21 IU/L (23-200); CREATININE 2.95 mg/dl (0.44-1.00)
[2016-07-19 17:06] LABS: CALCIUM 8.1 mg/dl (8.4-10.2); GLUCOSE 133 mg/dl (70-220)
[2016-07-19 17:14] LABS: CK-MB 0.97 ng/ml (0.0-2.4)
[2016-07-19 17:22] LABS: TROPONIN-I < 0.012 ng/ml (0.00-0.12)
--- NOTE | 2016-07-19 17:26 | PN ---
DATE: 07/19/2016 SUBJECTIVE: The patient is awake. She developed chest pain with rapid atrial fibrillation today du ring dialysis. Currently in no distress and afebrile. LABORATORY DATA: WBC today 11.3, H and H 8 and 25.2, platelets 172, neutrophils 81.4. INDWELLINGS: The patient has right chest PermCath. DIAGNOSTICS: Chest x-ray on admission was negative. MICROBIOLOGY: Blood culture growing gram-negative rods. ANTIMICROBIALS: The patient is on: 1. Cefepime. 2. Vancomycin. 3. She is also getting INH. PHYSICAL EXAMINATION: GENERAL: Well-developed, elderly woman who is awake, in no distress. HEENT: Head atraumatic, normocephalic. Sclerae anicteric. Buccal mucosa pink. NECK: Supple. CHEST: Rise symmetrical. Breath sounds clear, diminished to bases. HEART: S1, S2. ABDOMEN: Soft, bowel sounds present. EXTREMITIES: Without cyanosis. ASSESSMENT: 1. Line sepsis with gram-negative aziza bacteremia. 2. End-stage renal disease. 3. Diabetes. 4. Hypertension. 5. Questionable history of tuberculosis versus history of exposure, remains on INH. PLAN: The patient remains stable. As per discussion with Dr. Ndiaye, plan to discontinue PermCath . Await for final cultures. Dictated By: TAI MENESES BANQUET MANAGER for ARIEL RENDON/NTS Conf#: [id number] DID#: [id number]
--- NOTE | 2016-07-19 17:40 | RADRPT ---
Echocardiogram Report Patient Name: BISHNU PHIPPS Gender: Female Date: 1955 Study Date: 19-Jul-2016 [employer]: Yamileth Magallanes SHANTEL Location: 104 Ref. Physician: CHANDU LUNA Quality: Good Procedures: Transthoracic echocardiogram with complete 2D, M-Mode, and doppler examination. Indications: Chest Pain. 2D/M Mode Doppler Measurement Value Normal Ranges Measurement Value Normal Ranges LVIDd 2D 4.5 3.5 - 5.6 cm AV Peak Jamarcus 1.5 m/sec LVIDs 2D 2.9 2.1 - 4.1 cm AV Peak PG 8.6 mmHg LVPWd 2D 1.1 0.6 - 1.1 cm TR Peak Jamarcus 3.3 m/sec IVSd 2D 1.3 0.6 - 1.1 cm TR Peak PG 42.6 mmHg AoR Diam 2D 2.4 2.0 - 3.7 cm RVSP 51.0 mmHg EDV 2D 92.1 cm3 ESV 2D 25.0 cm3 LA Dimen 2D 3.9 2.3 - 4.0 cm Findings Left Ventricle: Normal left ventricular systolic function. Normal left ventricular cavity size. Mild concentric left ventricular hypertrophy. Ejection fraction is visually estimated at 55 %. Abnormal Diastolic Function. Right Ventricle: Normal right ventricular size. Normal right ventricular systolic function. Left Atrium: The left atrium is normal in size. Right Atrium: The right atrium is normal in size. Mitral Valve: Normal appearance and function of the mitral valve with trace physiologic regurgitation. Aortic Valve: No significant aortic stenosis or insufficiency. Aortic cusps appear mildly calcified. Tricuspid Valve: Normal appearance of the tricuspid valve. Estimated peak PA systolic pressure 51 mmHg. There is mild to moderate tricuspid regurgitation. Pulmonic Valve: Normal pulmonic valve appearance. Pericardium: Trivial pericardial effusion. Aorta: Normal aortic root. IVC: Dilated IVC with respiratory collapse consistent with elevated right atrial pressure. Conclusions 1.Normal left ventricular systolic function. Normal left ventricular cavity size. Mild concentric left ventricular hypertrophy. Ejection fraction is visually estimated at 55 %. Abnormal Diastolic Function. 2.Normal right ventricular size. Normal right ventricular systolic function. 3.The left atrium is normal in size. 4.The right atrium is normal in size. 5.Estimated peak PA systolic pressure 51 mmHg. There is mild to moderate tricuspid regurgitation. 6.No significant aortic stenosis or insufficiency. 7.Trivial pericardial effusion. Electronically Signed By: Filipe Silveira 19-Jul-2016 17:40:14 -0700 Patient Name: BISHNU PHIPPS Study Date: 19-Jul-2016 [id number]
[2016-07-19] MEDS: CEFEPIME 2GM/50 ML (PMX) 50 ML IVPB SCH (18:07)
[2016-07-19] MEDS ORDERED: LISINOPRIL 5 MG TAB PO ONE (18:10)
[2016-07-19] MEDS: LISINOPRIL 5 MG TAB PO SCH (21:00)
[2016-07-19] MEDS: ATORVASTATIN 40 MG TAB PO SCH (21:00)
[2016-07-19] MEDS: hydrALAzine 20 MG INJ IV PRN (22:09)
[2016-07-19 22:17] LABS: TROPONIN-I 2.54 ng/ml (0.00-0.12)
[2016-07-20] VITALS (25 sets, daily range): BP systolic 128–194; BP diastolic 58–83; PULSE 50–76; RESP 1–48
[2016-07-20] MEDS: ACCUCHECK 2 AM XX SCH (02:00)
[2016-07-20 06:04] LABS: ADD SCAN DIFF NO
[2016-07-20 06:13] LABS: BASOPHILS % 0.4 % (0.0-2.0); EOSINOPHILS # 0.1 10^3/ul (0.0-0.5); EOSINOPHILS % 0.7 % (0.0-7.0); HEMATOCRIT 23.5 % (37.0-47.0); HEMOGLOBIN 7.5 g/dl (12.0-16.0); LYMPHOCYTES # 1.1 10^3/ul (0.8-2.9); LYMPHOCYTES % 9.9 % (15.0-51.0); MEAN CORPUSCULAR HEMOGLOBIN 29.4 pg (29.0-33.0); MEAN CORPUSCULAR HGB CONC 31.9 g/dl (32.0-37.0); MEAN CORPUSCULAR VOLUME 92.2 fl (82.0-101.0); MEAN PLATELET VOLUME 11.2 fl (7.4-10.4); NEUTROPHIL # 8.8 10^3/ul (1.6-7.5); NEUTROPHILS % 79.4 % (39.0-77.0); PLATELET COUNT 180 10^3/UL (140-415); RED BLOOD COUNT 2.55 10^6/ul (4.20-5.40); RED CELL DISTRIBUTION WIDTH 14.9 % (11.5-14.5)
[2016-07-20 06:33] LABS: POTASSIUM 5.1 mmol/L (3.5-5.1)
[2016-07-20 06:36] LABS: CALCIUM 7.7 mg/dl (8.4-10.2); CREATININE 3.92 mg/dl (0.44-1.00)
[2016-07-20] MEDS: LEVOTHYROXINE 125 MCG TAB PO SCH ×2 (07:00→09:34)
[2016-07-20] MEDS ORDERED: SOD CHLORIDE 0.9% 250 ML IV* ONE (07:04)
[2016-07-20] MEDS: Insulin NOVOLOG SS MILD Algorithm (SS with meals and bedtime) SC SCH ×4 (07:05→21:00)
[2016-07-20] MEDS ORDERED: ACETAMINOPHEN 325 MG TAB PO ONE (07:30)
--- NOTE | 2016-07-20 07:43 | PN ---
DATE: 07/20/2016 SUBJECTIVE: Yesterday, the patient, after hemodialysis, developed chills and went into atrial fibri llation with rapid ventricular rate. The patient was transferred to intensive care unit on an amiod arone drip. No other acute events noted. No hemoptysis, hematemesis, or hematochezia. I spoke yes terday with Infectious Disease regarding the removal of the patient's PermCath which is likely the s ource of her underlying infection. I discussed with the patient as well who is aware and agrees wit h removal of PermCath. Other events noted. OBJECTIVE: VITAL SIGNS: Blood pressure 140/68, respiration is 20, pulse 86, temperature 98.4. HEENT: Head is normocephalic. NECK: Supple. HEART: Regular rate. LUNGS: Show diminished breath sounds at base. ABDOMEN: Soft, nontender to palpation. No rebound or guarding. EXTREMITIES: Negative for clubbing, cyanosis, edema. DERMATOLOGIC: No rashes. MUSCULOSKELETAL: No joint effusions. NEUROLOGIC: No change in exam. MEDICATIONS: The patient's medications have been reviewed. LABORATORY DATA: Shows white count 11.0, hemoglobin 7.5, hematocrit 23.5, platelet count 180. Sodi um 140, potassium 4.0, chloride 101, BUN 17, creatinine 2.95. ASSESSMENT AND PLAN: 1. End-stage renal disease. The patient had hemodialysis yesterday. The patient has apparent line infection. Plan is for a PermCath to be removed. The patient will be on line holiday for 1 to 2 d ays before a temporary catheter is placed. We will monitor for daily dialytic needs. 2. Sepsis, likely line infection. The patient's peripheral blood cultures are positive for gram-ne gative rods. The patient also developed chills during the course of dialysis highly suggestive of a PermCath line infection. I spoke with Infectious Disease who agrees with removal of PermCath. I s poke with Dr. Whitaker who will plan for PermCath removal this morning. We will continue to follow up blood cultures. Continue antibiotic therapy and monitor closely. 3. Anemia of chronic disease. Continue to monitor hemoglobin and hematocrit levels. Continue Epog en. 4. Mineral bone disorder. Monitor calcium and phosphorus levels. Continue phosphate binders. 5. Hypertension. Continue current blood pressure regimen. 6. Diabetes. Continue Accu-Cheks and sliding scale. 7. Atrial fibrillation, new onset. Etiology may be related to underlying sepsis. Currently on ami odarone drip. The patient is rate controlled. Continue current medical management. We will follow up with frame trimmer, Dr. Silveira. Dictated By: LY LOPEZ DO NR/NTS Conf#: [id number] DID#: [id number]
[2016-07-20 08:46] LABS: CK-MB 8.86 ng/ml (0.0-2.4)
[2016-07-20 08:57] LABS: TROPONIN-I 5.33 ng/ml (0.00-0.12)
[2016-07-20] MEDS ORDERED: EPOETIN 4000 UNITS/1 ML INJ (ESRD) SC ONE (09:00)
[2016-07-20] MEDS: ISONIAZID 300 MG TAB PO SCH (09:31)
[2016-07-20] MEDS: PYRIDOXINE 50 MG TAB PO SCH (09:32)
[2016-07-20] MEDS: PENTOXIFYLLINE (SR) 400 MG TAB PO SCH (09:32)
[2016-07-20] MEDS: CALCIUM ACETATE 667 MG CAP PO SCH ×3 (09:32→17:35)
[2016-07-20] MEDS: FERROUS SULFATE (EC) 325 MG TAB PO SCH ×2 (09:33→12:35)
[2016-07-20] MEDS: METOPROLOL 50 MG TAB PO SCH (09:33)
[2016-07-20] MEDS: LISINOPRIL 5 MG TAB PO SCH (09:33)
[2016-07-20] MEDS: ASPIRIN 325 MG TAB PO SCH (09:40)
[2016-07-20] MEDS: HEPARIN 5,000 UNIT/0.5 ML SYG SC SCH ×2 (09:44→22:56)
--- NOTE | 2016-07-20 12:05 | CONS ---
Date/Time of Note Date/Time of Note DATE: 07/20/16 TIME: 12:00 Assessment/Plan Assessment/Plan Additional Assessment/Plan New onset atrial fibrillation with rapid ventricular rates, currently sinus rhythm Elevated troponin Preserved ejection fraction Sepsis with gram-negative bacteremia Acute blood loss anemia End-stage renal disease on hemodialysis Diabetes -Patient converted to atrial fibrillation yesterday during hemodialysis with heart rates as high as the 190s-200. Patient converted to sinus rhythm after IV fluids, cessation of hemodialysis and initiation of IV amiodarone. Patient with troponin elevation noted overnight and this morning. Patient denies any chest pain, shortness of breath. Echocardiogram with preserved ejection fraction. Patient also severely anemic. I have ordered 2 units of blood transfusion this morning, switch amiodarone to p.o., continue beta-erin, statin and aspirin therapy. I am hesitant of initiation of dual antiplatelet therapy at the current time given severe anemia. Patient is adamant that prior to this illness, she is quite active and denies exertional chest pain or shortness of breath. Patient will need ischemic workup once sepsis has resolved. Will order gallbladder ultrasound as well given gram-negative bacteremia and patient with recurrent nausea. Consultation Date/Type/Reason Admit Date/Time Jul 17, 2016 at 20:10 Initial Consult Date Type of Consultation: cv 24 HR Interval Summary Free Text/Dictation Patient feeling much better today and symptoms of chest discomfort and palpitations resolved once back in sinus rhythm. She denies any fevers or chills. Had some mild nausea yesterday and abdominal discomfort which has improved. Exam/Review of Systems Vital Signs Vitals Vital Signs Date Time Temp Pulse Resp B/P Pulse Ox O2 Delivery O2 Flow Rate FiO2 07/20/16 09:00 66 16 156/63 100 Nasal Cannula 3.0 07/20/16 08:00 98.2 Intake and Output 07/19/16 07/19/16 07/20/16 15:00 23:00 07:00 Intake Total 500 ml 149.8 ml 49.8 ml Output Total 1500 ml 200 ml Balance -1000 ml 149.8 ml -150.2 ml Exam No apparent distress Constitutional: alert, oriented Head: normocephalic Neck: supple Respiratory: other (Coarse breath sounds bilaterally, no wheezing) Cardiovascular: other (S1-S2 heard), regular rate and rhythm, systolic murmur Gastrointestinal: bowel sounds, other (Mild discomfort with palpation, no guarding), soft Extremities: edema (Trace), other (No cyanosis) Results Result Diagram: 07/20/16 0550 07/20/16 0550 Results 24 hrs Laboratory Tests Test 07/19/16 12:33 07/19/16 14:20 07/19/16 14:52 07/19/16 17:41 Bedside Glucose 144 143 148 Anion Gap 18 H Basophils # 0.0 Basophils % 0.2 Blood Urea Nitrogen 17 # Calcium Level 8.1 L Carbon Dioxide Level 25 Chloride Level 101 Creatine Kinase 21 L Creatine Kinase Index 4.6 Creatinine 2.95 #H Creatinine Kinase MB (Mass) 0.97 Eosinophils # 0.2 Eosinophils % 2.1 Glucose Level 133 Hematocrit 25.2 L Hemoglobin 8.0 L Lymphocytes # 0.8 Lymphocytes % 7.0 L Mean Corpuscular Hemoglobin 29.0 Mean Corpuscular Hemoglobin Concent 31.7 L Mean Corpuscular Volume 91.3 Mean Platelet Volume 11.0 H Monocytes # 1.0 H Monocytes % 8.8 Neutrophils # 9.2 H Neutrophils % 81.4 H Nucleated Red Blood Cells # 0.0 Nucleated Red Blood Cells % 0.0 Platelet Count 173 Potassium Level 4.0 Red Blood Count 2.76 L Red Cell Distribution Width 14.9 H Sodium Level 140 Troponin I < 0.012 White Blood Count 11.3 H Test 07/19/16 21:33 07/19/16 23:11 07/20/16 05:50 07/20/16 07:55 Creatine Kinase 92 67 Creatine Kinase Index 13.0 13.2 Creatinine Kinase MB (Mass) 12.00 H 8.86 H Troponin I 2.540 *H 4.890 *H 5.330 *H Bedside Glucose 146 Anion Gap 16 Basophils # 0.0 Basophils % 0.4 Blood Urea Nitrogen 24 H Calcium Level 7.7 L Carbon Dioxide Level 27 Chloride Level 102 Creatinine 3.92 H Eosinophils # 0.1 Eosinophils % 0.7 Glucose Level 100 Hematocrit 23.5 L Hemoglobin 7.5 L Lymphocytes # 1.1 Lymphocytes % 9.9 L Mean Corpuscular Hemoglobin 29.4 Mean Corpuscular Hemoglobin Concent 31.9 L Mean Corpuscular Volume 92.2 Mean Platelet Volume 11.2 H Monocytes # 1.0 H Monocytes % 9.0 Neutrophils # 8.8 H Neutrophils % 79.4 H Nucleated Red Blood Cells # 0.0 Nucleated Red Blood Cells % 0.0 Platelet Count 180 Potassium Level 5.1 Red Blood Count 2.55 L Red Cell Distribution Width 14.9 H Sodium Level 140 White Blood Count 11.0 H Test 07/20/16 08:04 07/20/16 11:22 Bedside Glucose 107 109 Medications Medications Current Medications Ondansetron HCl (Zofran Inj) 4 mg Q6H PRN IV NAUSEA AND/OR VOMITING Last administered on 07/19/16 22:55; Admin Dose 4 MG; Start 07/17/16 at 21:00 Acetaminophen (Tylenol Tab) 650 mg Q6H PRN PO PAIN LEVEL 1-3 OR FEVER Last administered on 07/18/16 08:28; Admin Dose 650 MG; Start 07/17/16 at 21:00 Acetaminophen/ Hydrocodone Bitart ([place] (5/325)) 1 tab Q6H PRN PO MODERATE PAIN LEVEL 4-6; Start 07/17/16 at 21:00 Morphine Sulfate (morphine) 2 mg Q4H PRN IV SEVERE PAIN LEVEL 7-10 Last administered on 07/19/16 13:45; Admin Dose 2 MG; Start 07/17/16 at 21:00 Docusate Sodium (Colace) 100 mg Q12H PRN PO CONSTIPATION; Start 07/17/16 at 21: 00 Magnesium Hydroxide (Milk Of Mag) 30 ml DAILY PRN PO CONSTIPATION; Start at 21:00 Sodium Biphosphate/ Sodium Phosphate (Fleet Enema) 133 ml DAILY PRN [place] CONSTIPATION; Start 07/17/16 at 21:00 Heparin Sodium (Porcine) (Heparin (5000 Units/0.5 ml)) 5,000 unit Q12 SC Last administered on 07/20/16 09:44; Admin Dose 5,000 UNIT; Start 07/17/16 at 23:00 Lorazepam (Ativan) 0.5 mg Q6H PRN IV ANXIETY; Start 07/17/16 at 21:00 Vancomycin HCl (Vanco Iv Per Pharmacy) VANCOMYCIN PER PHARMACY NOTE XX ; Start 07/17/16 at 21:00 Hydralazine HCl (Apresoline) 10 mg Q6H PRN IV ELEVATED BLOOD PRESSURE Last administered on 07/19/16 22:09; Admin Dose 10 MG; Start 07/17/16 at 21:00 Nitroglycerin (Nitroglycerin (Sl Tab) 0.4 Mg) 1 tab Q5M PRN SL ANGINA Last administered on 07/19/16 13:57; Admin Dose 1 TAB; Start 07/17/16 at 21:00 Ferrous Sulfate (Ferrous Sulfate (Ec)) 325 mg TID PO Last administered on 09:33; Admin Dose 325 MG; Start 07/17/16 at 21:00 Isoniazid (Isoniazid) 300 mg DAILY PO Last administered on 07/20/16 09:31; Admin Dose 300 MG; Start 07/18/16 at 09:00 Pentoxifylline (Trental) 400 mg DAILY PO Last administered on 07/20/16 09:32; Admin Dose 400 MG; Start 07/18/16 at 09:00 Pyridoxine HCl (Vitamin B6) 50 mg DAILY PO Last administered on 07/20/16 09:32 ; Admin Dose 50 MG; Start 07/18/16 at 09:00 Miscellaneous Information 1 ea NOTE XX ; Start 07/18/16 at 05:30 Glucose (Glutose) 15 gm Q15M PRN PO DECREASED GLUCOSE; Start 07/18/16 at 05:30 Glucose (Glutose) 22.5 gm Q15M PRN PO DECREASED GLUCOSE; Start 07/18/16 at 05: 30 Dextrose (D50w Syringe) 25 ml Q15M PRN IV DECREASED GLUCOSE; Start 07/18/16 at 05:30 Dextrose (D50w Syringe) 50 ml Q15M PRN IV DECREASED GLUCOSE; Start 07/18/16 at 05:30 Glucagon (Glucagen) 1 mg Q15M PRN IM DECREASED GLUCOSE; Start 07/18/16 at 05:30 Glucose (Glutose) 15 gm Q15M PRN BUCCAL DECREASED GLUCOSE; Start 07/18/16 at 05 :30 Diagnostic Test (Pha) (Accucheck) 1 ea 02 XX ; Start 07/18/16 at 08:00 Metoprolol Tartrate (Lopressor) 50 mg BID PO Last administered on 07/20/16 09: 33; Admin Dose 50 MG; Start 07/19/16 at 14:00 Aspirin 325 mg 325 mg DAILY PO Last administered on 07/20/16 09:40; Admin Dose 325 MG; Start 07/19/16 at 14:30 Amiodarone HCl/ Dextrose (Cordarone Iv/ D5W) 500 ml @ 0 mls/hr Q0M IV Last administered on 07/19/16 16:21; Admin Dose 33.4 MLS/HR; Start 07/19/16 at 15:30 ; Stop 07/20/16 at 15:29 Atorvastatin Calcium (Lipitor) 40 mg HS PO ; Start 07/19/16 at 21:00 Lisinopril (Zestril) 5 mg BID PO Last administered on 07/20/16 09:33; Admin Dose 5 MG; Start 07/19/16 at 21:00 Epoetin Lico 32161 units 10,000 units TuThSa@17 SC ; Start 07/21/16 at 17:00 Cefepime HCl (Maxipime 1gm/50 ml (Pmx)) 50 ml @ 100 mls/hr Q24H IVPB ; Start at 18:00 Filipe Silveira DO Jul 20, 2016 12:05
[2016-07-20] MEDS: hydrALAzine 20 MG INJ IV PRN ×2 (12:34→18:08)
[2016-07-20] MEDS: AMIODARONE 200 MG TAB PO SCH (12:35)
[2016-07-20] MEDS ORDERED: GENTAMICIN IV PER PHARMACY XX SCH (14:30)
--- NOTE | 2016-07-20 14:33 | PN ---
Date/Time of Note Date/Time of Note DATE: 07/20/16 TIME: 14:26 Assessment/Plan VTE Prophylaxis VTE Prophylaxis Intervention: heparin Lines/Catheters IV Catheter Type (from Nrs): Peripheral IV Assessment/Plan Chief Complaint/Hosp Course 1. Atrial fibrillation, new onset Continue metoprolol 2. Chest pain, ECG, echo, troponin, aspirin, metoprolol, statin cardiology consult appreciated, troponin elevation likely secondary to tachyarrhythmia, continue to monitor 3. Bacteremia, gram negative aziza, on antibiotics Culture shows Serratia 4. Sepsis, on antibiotics ID on the case 5. End-stage renal disease Continue dialysis 6. Anemia of chronic kidney disease. one unit PRBC 07/19/2016 7. Mineral bone disorder. We will monitor calcium and phosphorus levels. Continue phos binder. 8. Hypertension. Continue current blood pressure regimen. 9. Diabetes, continue Accu-Cheks and sliding scale. 10. Gastrointestinal and deep venous thrombosis prophylaxis. Continue proton pump inhibitor and heparin. Problems: Subjective 24 Hr Interval Summary Gastrointestinal: pain Exam/Review of Systems Vital Signs Vitals Vital Signs Date Time Temp Pulse Resp B/P Pulse Ox O2 Delivery O2 Flow Rate FiO2 07/20/16 12:00 63 07/20/16 09:00 16 156/63 100 Nasal Cannula 3.0 07/20/16 08:00 98.2 Intake and Output 07/19/16 07/19/16 07/20/16 15:00 23:00 07:00 Intake Total 500 ml 149.8 ml 49.8 ml Output Total 1500 ml 200 ml Balance -1000 ml 149.8 ml -150.2 ml Exam Constitutional: alert Respiratory: clear to auscultation Cardiovascular: regular rate and rhythm Gastrointestinal: soft, No distended Musculoskeletal: nl extremities to inspection Results Result Diagram: 07/20/16 0550 07/20/16 0550 Results 24 hrs Laboratory Tests Test 07/19/16 14:52 07/19/16 17:41 07/19/16 21:33 07/19/16 23:11 Anion Gap 18 H Basophils # 0.0 Basophils % 0.2 Blood Urea Nitrogen 17 # Calcium Level 8.1 L Carbon Dioxide Level 25 Chloride Level 101 Creatine Kinase 21 L 92 Creatine Kinase Index 4.6 13.0 Creatinine 2.95 #H Creatinine Kinase MB (Mass) 0.97 12.00 H Eosinophils # 0.2 Eosinophils % 2.1 Glucose Level 133 Hematocrit 25.2 L Hemoglobin 8.0 L Lymphocytes # 0.8 Lymphocytes % 7.0 L Mean Corpuscular Hemoglobin 29.0 Mean Corpuscular Hemoglobin Concent 31.7 L Mean Corpuscular Volume 91.3 Mean Platelet Volume 11.0 H Monocytes # 1.0 H Monocytes % 8.8 Neutrophils # 9.2 H Neutrophils % 81.4 H Nucleated Red Blood Cells # 0.0 Nucleated Red Blood Cells % 0.0 Platelet Count 173 Potassium Level 4.0 Red Blood Count 2.76 L Red Cell Distribution Width 14.9 H Sodium Level 140 Troponin I < 0.012 2.540 *H White Blood Count 11.3 H Bedside Glucose 148 146 Test 07/20/16 05:50 07/20/16 07:55 07/20/16 08:04 07/20/16 11:22 Anion Gap 16 Basophils # 0.0 Basophils % 0.4 Blood Urea Nitrogen 24 H Calcium Level 7.7 L Carbon Dioxide Level 27 Chloride Level 102 Creatinine 3.92 H Eosinophils # 0.1 Eosinophils % 0.7 Glucose Level 100 Hematocrit 23.5 L Hemoglobin 7.5 L Lymphocytes # 1.1 Lymphocytes % 9.9 L Mean Corpuscular Hemoglobin 29.4 Mean Corpuscular Hemoglobin Concent 31.9 L Mean Corpuscular Volume 92.2 Mean Platelet Volume 11.2 H Monocytes # 1.0 H Monocytes % 9.0 Neutrophils # 8.8 H Neutrophils % 79.4 H Nucleated Red Blood Cells # 0.0 Nucleated Red Blood Cells % 0.0 Platelet Count 180 Potassium Level 5.1 Red Blood Count 2.55 L Red Cell Distribution Width 14.9 H Sodium Level 140 Troponin I 4.890 *H 5.330 *H White Blood Count 11.0 H Creatine Kinase 67 Creatine Kinase Index 13.2 Creatinine Kinase MB (Mass) 8.86 H Bedside Glucose 107 109 Medications Medications Current Medications Ondansetron HCl (Zofran Inj) 4 mg Q6H PRN IV NAUSEA AND/OR VOMITING Last administered on 07/19/16 22:55; Admin Dose 4 MG; Start 07/17/16 at 21:00 Acetaminophen (Tylenol Tab) 650 mg Q6H PRN PO PAIN LEVEL 1-3 OR FEVER Last administered on 07/18/16 08:28; Admin Dose 650 MG; Start 07/17/16 at 21:00 Acetaminophen/ Hydrocodone Bitart ([place] (5/325)) 1 tab Q6H PRN PO MODERATE PAIN LEVEL 4-6; Start 07/17/16 at 21:00 Morphine Sulfate (morphine) 2 mg Q4H PRN IV SEVERE PAIN LEVEL 7-10 Last administered on 07/19/16 13:45; Admin Dose 2 MG; Start 07/17/16 at 21:00 Docusate Sodium (Colace) 100 mg Q12H PRN PO CONSTIPATION; Start 07/17/16 at 21: 00 Magnesium Hydroxide (Milk Of Mag) 30 ml DAILY PRN PO CONSTIPATION; Start at 21:00 Sodium Biphosphate/ Sodium Phosphate (Fleet Enema) 133 ml DAILY PRN [place] CONSTIPATION; Start 07/17/16 at 21:00 Heparin Sodium (Porcine) (Heparin (5000 Units/0.5 ml)) 5,000 unit Q12 SC Last administered on 07/20/16 09:44; Admin Dose 5,000 UNIT; Start 07/17/16 at 23:00 Lorazepam (Ativan) 0.5 mg Q6H PRN IV ANXIETY; Start 07/17/16 at 21:00 Vancomycin HCl (Vanco Iv Per Pharmacy) VANCOMYCIN PER PHARMACY NOTE XX ; Start 07/17/16 at 21:00 Hydralazine HCl (Apresoline) 10 mg Q6H PRN IV ELEVATED BLOOD PRESSURE Last administered on 07/20/16 12:34; Admin Dose 10 MG; Start 07/17/16 at 21:00 Nitroglycerin (Nitroglycerin (Sl Tab) 0.4 Mg) 1 tab Q5M PRN SL ANGINA Last administered on 07/19/16 13:57; Admin Dose 1 TAB; Start 07/17/16 at 21:00 Ferrous Sulfate (Ferrous Sulfate (Ec)) 325 mg TID PO Last administered on 12:35; Admin Dose 325 MG; Start 07/17/16 at 21:00 Isoniazid (Isoniazid) 300 mg DAILY PO Last administered on 07/20/16 09:31; Admin Dose 300 MG; Start 07/18/16 at 09:00 Pentoxifylline (Trental) 400 mg DAILY PO Last administered on 07/20/16 09:32; Admin Dose 400 MG; Start 07/18/16 at 09:00 Pyridoxine HCl (Vitamin B6) 50 mg DAILY PO Last administered on 07/20/16 09:32 ; Admin Dose 50 MG; Start 07/18/16 at 09:00 Miscellaneous Information 1 ea NOTE XX ; Start 07/18/16 at 05:30 Glucose (Glutose) 15 gm Q15M PRN PO DECREASED GLUCOSE; Start 07/18/16 at 05:30 Glucose (Glutose) 22.5 gm Q15M PRN PO DECREASED GLUCOSE; Start 07/18/16 at 05: 30 Dextrose (D50w Syringe) 25 ml Q15M PRN IV DECREASED GLUCOSE; Start 07/18/16 at 05:30 Dextrose (D50w Syringe) 50 ml Q15M PRN IV DECREASED GLUCOSE; Start 07/18/16 at 05:30 Glucagon (Glucagen) 1 mg Q15M PRN IM DECREASED GLUCOSE; Start 07/18/16 at 05:30 Glucose (Glutose) 15 gm Q15M PRN BUCCAL DECREASED GLUCOSE; Start 07/18/16 at 05 :30 Diagnostic Test (Pha) (Accucheck) 1 ea 02 XX ; Start 07/18/16 at 08:00 Metoprolol Tartrate (Lopressor) 50 mg BID PO Last administered on 07/20/16 09: 33; Admin Dose 50 MG; Start 07/19/16 at 14:00 Atorvastatin Calcium (Lipitor) 40 mg HS PO ; Start 07/19/16 at 21:00 Lisinopril (Zestril) 5 mg BID PO Last administered on 07/20/16 09:33; Admin Dose 5 MG; Start 07/19/16 at 21:00 Epoetin Lico 75926 units 10,000 units TuThSa@17 SC ; Start 07/21/16 at 17:00 Cefepime HCl (Maxipime 1gm/50 ml (Pmx)) 50 ml @ 100 mls/hr Q24H IVPB ; Start at 18:00 Aspirin (Aspirin) 81 mg DAILY PO ; Start 07/21/16 at 09:00 Amiodarone HCl (Cordarone) 200 mg BID PO Last administered on 07/20/16 12:35; Admin Dose 200 MG; Start 07/20/16 at 12:00 NATALIA PICKERING Jul 20, 2016 14:32
--- NOTE | 2016-07-20 15:32 | RADRPT ---
PROCEDURE: US Abdomen. CLINICAL INDICATION: 60-year-old female with sepsis and bacteremia. TECHNIQUE: Multiple real-time images were acquired of the patient's abdomen and retroperitoneum ut ilizing a high resolution transducer. COMPARISON: No. FINDINGS: The head and mid body of the pancreas are unremarkable. The distal body and tail of the pancreas ar e not visualized. The inferior vena cava is unremarkable. The liver is enlarged measuring 19.2 cm in length. No hepatic mass 11/07. The hepatic and portal v eins are patent. The gallbladder is unremarkable. The gallbladder wall measures 2.8 mm. There are small gallstones in the gallbladder. Trace pericholecystic fluid is noted. The common bile duct measured 3.8 mm. The right kidney measures 11 cm in length. Trace fluid is noted in the perinephric space adjacent t o the right kidney which is of doubtful clinical significance. There is no evidence of a solid mass or hydronephrosis. The left kidney is not evaluated. IMPRESSION: 1. Hepatomegaly. 2. Cholelithiasis with small gallstones in the gallbladder. No gallbladder wall thickening. Noelle l common bile duct. RPTAT:AAJJ Physician Rachana Date Time Electronically viewed and signed by Physician Rachana on 07/20/2016 15:31 IE/
[2016-07-20] MEDS ORDERED: GENTAMICIN 140 MG in SOD CHLORIDE 0.9% 100 ML IVPB SCH (16:00)
[2016-07-20 16:04] LABS: CK-MB 5.61 ng/ml (0.0-2.4)
[2016-07-20 16:08] LABS: TROPONIN-I 4.52 ng/ml (0.00-0.12)
[2016-07-20] MEDS: morphine 2 MG INJ IV PRN (16:47)
--- NOTE | 2016-07-20 16:55 | OPR ---
DATE OF OPERATION: 07/20/2016 PREOPERATIVE DIAGNOSIS: End-stage renal disease and sepsis. POSTOPERATIVE DIAGNOSIS: End-stage renal disease and sepsis. OPERATION PERFORMED: Removal of tunneled hemodialysis catheter. INDICATION: This is a 60-year-old female who presented with bacteremia and a workup for sepsis. Barron schilling has a right chest wall catheter that has been placed that she uses for her dialysis sessions. Risk and benefits were discussed with the patient and the patient agreed to proceed. DESCRIPTION OF PROCEDURE: Using a 1% lidocaine to the area, the PermCath was infiltrated. This sit e was prepped and draped in usual standard sterile fashion. Using a curved Staci, the granulation t issue was removed from the cuff and the hemodialysis catheter was removed without any complication. Patient tolerated procedure well and a puncture site was closed with 3-0 nylon suture. Manual comp ression was held. The tip of the PermCath was sent for culture for further evaluation with ERNo logy. The patient tolerated it well. Dictated By: ABEL LYNN/FADUMO Conf#: [id number] DID#: [id number]
[2016-07-20] MEDS ORDERED: CEFEPIME 1GM/50 ML IVPB SCH (18:00)
[2016-07-20] MEDS: ONDANSETRON 4 MG INJ IV PRN (18:45)
[2016-07-20] MEDS: ONDANSETRON INJ 8 MG in SOD CHLORIDE 0.9% 50 ML IV PRN (21:23)
[2016-07-20] MEDS: TRIMETHOBENZAMIDE 100 MG/ML VIAL IM PRN (22:50)
[2016-07-21] VITALS (21 sets, daily range): BP systolic 138–184; BP diastolic 60–81; PULSE 62–75; RESP 11–23
[2016-07-21] MEDS: FERROUS SULFATE (EC) 325 MG TAB PO SCH ×4 (00:23→21:00)
[2016-07-21] MEDS: ATORVASTATIN 40 MG TAB PO SCH ×2 (00:24→21:00)
[2016-07-21] MEDS: METOPROLOL 50 MG TAB PO SCH ×3 (00:24→21:00)
[2016-07-21] MEDS: LISINOPRIL 5 MG TAB PO SCH ×3 (00:24→21:00)
[2016-07-21] MEDS: AMIODARONE 200 MG TAB PO SCH ×3 (00:25→21:00)
[2016-07-21] MEDS: ACCUCHECK 2 AM XX SCH (02:00)
[2016-07-21] MEDS: hydrALAzine 20 MG INJ IV PRN ×4 (02:15→23:47)
[2016-07-21] MEDS: ONDANSETRON INJ 8 MG in SOD CHLORIDE 0.9% 50 ML IV PRN ×2 (05:45→22:04)
[2016-07-21 05:51] LABS: ADD SCAN DIFF NO
[2016-07-21 05:55] LABS: BASOPHIL # 0.1 10^3/ul (0.0-0.1); BASOPHILS % 0.7 % (0.0-2.0); EOSINOPHILS # 0.1 10^3/ul (0.0-0.5); EOSINOPHILS % 0.5 % (0.0-7.0); HEMATOCRIT 31.9 % (37.0-47.0); LYMPHOCYTES # 1.2 10^3/ul (0.8-2.9); LYMPHOCYTES % 10.5 % (15.0-51.0); MEAN CORPUSCULAR HEMOGLOBIN 28.6 pg (29.0-33.0); MEAN CORPUSCULAR HGB CONC 31.3 g/dl (32.0-37.0); MEAN CORPUSCULAR VOLUME 91.1 fl (82.0-101.0); MEAN PLATELET VOLUME 11.5 fl (7.4-10.4); MONOCYTE # 0.8 10^3/ul (0.3-0.9); MONOCYTES % 6.8 % (0.0-11.0); NEUTROPHIL # 8.8 10^3/ul (1.6-7.5); NEUTROPHILS % 77.1 % (39.0-77.0); PLATELET COUNT 194 10^3/UL (140-415); RED CELL DISTRIBUTION WIDTH 15.8 % (11.5-14.5); WHITE BLOOD COUNT 11.4 10^3/ul (4.8-10.8)
[2016-07-21 06:16] LABS: CK-MB 3.12 ng/ml (0.0-2.4)
[2016-07-21 06:20] LABS: POTASSIUM 5.2 mmol/L (3.5-5.1)
[2016-07-21 06:23] LABS: CREATININE 5.04 mg/dl (0.44-1.00)
[2016-07-21] MEDS: LEVOTHYROXINE 125 MCG TAB PO SCH (07:00)
[2016-07-21 07:04] LABS: TROPONIN-I 2.54 ng/ml (0.00-0.12)
[2016-07-21] MEDS: Insulin NOVOLOG SS MILD Algorithm (SS with meals and bedtime) SC SCH ×4 (07:05→21:00)
[2016-07-21] MEDS: CALCIUM ACETATE 667 MG CAP PO SCH ×3 (07:35→17:35)
--- NOTE | 2016-07-21 07:52 | CONS ---
DATE OF ADMISSION: 07/17/2016 DATE OF CONSULTATION: 07/18/2016 INFECTIOUS DISEASE CONSULTATION I am seeing this patient for Dr. Mitchell Presley, who has been requested to do an infectious disease consultation by Dr. Manav Patton. HISTORY OF PRESENT ILLNESS: The patient is a 60-year-old female who has end-stage renal di sease on hemodialysis. She presented to the emergency room 07/17/2016, yesterday, with a chief compl aint of fever and chills for one week about 8 hours after hemodialysis. The patient has no history of diabetes, end-stage renal disease, atrial fibrillation, hypertension and hypothyroidism. Her whi te count on admission was 10,500, but luz marina the following day (today) to 21,100. Her blood cultures are growing gram-negative rods. Her lactic acid is 3.1, which is elevated. Her admitting temperatu re was 102.6. She had a negative MRSA test and she was begun initially on gentamicin, cefepime and vancomycin. The patient's chest x-ray was negative except for a right chest tunneled dialysis berry ter. Gallbladder studies revealed small gallstones with no signs of cholecystitis. PAST MEDICAL HISTORY: End-stage renal disease, diabetes mellitus, hypothyroidism, atrial fibrillati on, hypertension, hyperlipidemia. Also history of possible tuberculosis infection. PAST SURGICAL HISTORY: Consist of right chest tunneled catheter. ALLERGIES: NO KNOWN DRUG ALLERGIES. MEDICATIONS: 1. Pentoxifylline 400 mg daily. 2. Benazepril 40 mg daily. 3. Nifedipine ER 60 mg daily. 4. Hydralazine 10 mg 3 times a day. 5. Levothyroxine 125 mcg daily. 6. B6 50 mg. (pyridoxine). 7. INH 300 mg. PHYSICAL EXAMINATION GENERAL: This is a well-developed, obese, mesomorphic, female lying in bed. She is in no acute distress. VITAL SIGNS: Stable. NECK: She has no jugular venous distention. There is a line tunneled in the right chest up towards the subclavian area. There is no redness or tenderness or drainage. There is no jugular venous di stention. CHEST: Clear to auscultation. HEART: Rapid and regular with occasional extra heartbeat. ABDOMEN: Soft. No palpable organs, mass or tenderness. There is no right upper quadrant tendernes s. Bowel sounds are present. EXTREMITIES: No edema, cyanosis or clubbing. NEUROLOGIC: The patient is alert, oriented and cooperative; can move all 4 extremities. INITIAL IMPRESSION: Gram-negative septicemia, line sepsis, end-stage renal disease, diabetes mellit us, hypertension, atrial fibrillation, hyperlipidemia and hypothyroidism. RECOMMENDATIONS: Continue present antibiotic pending isolation and culture and sensitivity. Thank you, Dr. Patton, for referring this interesting patient to Dr. Mitchell Presley. Dictated By: Wes PUGA/NTS Conf#: [id number] DID#: [id number]
[2016-07-21] MEDS: HEPARIN 5,000 UNIT/0.5 ML SYG SC SCH ×2 (08:29→21:02)
[2016-07-21] MEDS: ASPIRIN 81 MG TAB PO SCH (09:00)
[2016-07-21] MEDS: PYRIDOXINE 50 MG TAB PO SCH (09:00)
[2016-07-21] MEDS: ISONIAZID 300 MG TAB PO SCH (09:00)
[2016-07-21] MEDS: PENTOXIFYLLINE (SR) 400 MG TAB PO SCH (09:00)
--- NOTE | 2016-07-21 09:36 | CONS ---
Date/Time of Note Date/Time of Note DATE: 07/21/16 TIME: 09:30 Consult Date/Type/Reason Admit Date/Time Jul 17, 2016 at 20:10 Initial Consult Date Type of Consultation: neph Subjective the patient developed chills and went into atrial fibrillation with rapid ventricular rate. The patient was transferred to intensive care unit on an amiodarone drip. had line removed. No other acute events noted. No hemoptysis , hematemesis, or hematochezia. OBJECTIVE: HEENT: Head is normocephalic. NECK: Supple. HEART: Regular rate. LUNGS: Show diminished breath sounds at base. ABDOMEN: Soft, nontender to palpation. No rebound or guarding. EXTREMITIES: Negative for clubbing, cyanosis, edema. DERMATOLOGIC: No rashes. MUSCULOSKELETAL: No joint effusions. NEUROLOGIC: No change in exam. MEDICATIONS: The patient's medications have been reviewed. Objective Vital Signs Date Time Temp Pulse Resp B/P Pulse Ox O2 Delivery O2 Flow Rate FiO2 07/21/16 08:00 64 07/21/16 06:00 16 146/62 97 Nasal Cannula 07/21/16 04:00 97.5 07/21/16 01:37 2.0 Intake and Output 07/20/16 07/20/16 07/21/16 15:00 23:00 07:00 Intake Total 502 ml 419.5 ml 534 ml Output Total 150 ml 200 ml Balance 352 ml 219.5 ml 534 ml Results/Medications Result Diagram: 07/21/16 0507/21/16 0526 Results 24 hrs Laboratory Tests Test 07/20/16 11:22 07/20/16 15:28 07/20/16 17:19 07/20/16 21:30 Bedside Glucose 109 97 110 Creatine Kinase 52 Creatine Kinase Index 10.8 Creatinine Kinase MB (Mass) 5.61 H Troponin I 4.520 *H Test 07/21/16 05:26 07/21/16 07:56 Anion Gap 21 H Basophils # 0.1 Basophils % 0.7 Blood Urea Nitrogen 32 H Calcium Level 8.0 L Carbon Dioxide Level 23 Chloride Level 103 Creatine Kinase 53 Creatine Kinase Index 5.9 Creatinine 5.04 H Creatinine Kinase MB (Mass) 3.12 H Eosinophils # 0.1 Eosinophils % 0.5 Glucose Level 86 Hematocrit 31.9 #L Hemoglobin 10.0 #L Lymphocytes # 1.2 Lymphocytes % 10.5 L Mean Corpuscular Hemoglobin 28.6 L Mean Corpuscular Hemoglobin Concent 31.3 L Mean Corpuscular Volume 91.1 Mean Platelet Volume 11.5 H Monocytes # 0.8 Monocytes % 6.8 Neutrophils # 8.8 H Neutrophils % 77.1 H Nucleated Red Blood Cells # 0.0 Nucleated Red Blood Cells % 0.0 Platelet Count 194 Potassium Level 5.2 H Red Blood Count 3.50 #L Red Cell Distribution Width 15.8 H Sodium Level 142 Troponin I 2.540 *H White Blood Count 11.4 H Bedside Glucose 89 Medications Current Medications Acetaminophen (Tylenol Tab) 650 mg Q6H PRN PO PAIN LEVEL 1-3 OR FEVER Last administered on 07/18/16 08:28; Admin Dose 650 MG; Start 07/17/16 at 21:00 Acetaminophen/ Hydrocodone Bitart ([place] (5/325)) 1 tab Q6H PRN PO MODERATE PAIN LEVEL 4-6; Start 07/17/16 at 21:00 Morphine Sulfate (morphine) 2 mg Q4H PRN IV SEVERE PAIN LEVEL 7-10 Last administered on 07/20/16 16:47; Admin Dose 2 MG; Start 07/17/16 at 21:00 Docusate Sodium (Colace) 100 mg Q12H PRN PO CONSTIPATION; Start 07/17/16 at 21: 00 Magnesium Hydroxide (Milk Of Mag) 30 ml DAILY PRN PO CONSTIPATION; Start at 21:00 Sodium Biphosphate/ Sodium Phosphate (Fleet Enema) 133 ml DAILY PRN [place] CONSTIPATION; Start 07/17/16 at 21:00 Heparin Sodium (Porcine) (Heparin (5000 Units/0.5 ml)) 5,000 unit Q12 SC Last administered on 07/21/16 08:29; Admin Dose 5,000 UNIT; Start 07/17/16 at 23:00 Lorazepam (Ativan) 0.5 mg Q6H PRN IV ANXIETY; Start 07/17/16 at 21:00 Hydralazine HCl (Apresoline) 10 mg Q6H PRN IV ELEVATED BLOOD PRESSURE Last administered on 07/21/16 08:28; Admin Dose 10 MG; Start 07/17/16 at 21:00 Nitroglycerin (Nitroglycerin (Sl Tab) 0.4 Mg) 1 tab Q5M PRN SL ANGINA Last administered on 07/19/16 13:57; Admin Dose 1 TAB; Start 07/17/16 at 21:00 Ferrous Sulfate (Ferrous Sulfate (Ec)) 325 mg TID PO Last administered on 00:23; Admin Dose 325 MG; Start 07/17/16 at 21:00 Isoniazid (Isoniazid) 300 mg DAILY PO Last administered on 07/20/16 09:31; Admin Dose 300 MG; Start 07/18/16 at 09:00 Pentoxifylline (Trental) 400 mg DAILY PO Last administered on 07/20/16 09:32; Admin Dose 400 MG; Start 07/18/16 at 09:00 Pyridoxine HCl (Vitamin B6) 50 mg DAILY PO Last administered on 07/20/16 09:32 ; Admin Dose 50 MG; Start 07/18/16 at 09:00 Miscellaneous Information 1 ea NOTE XX ; Start 07/18/16 at 05:30 Glucose (Glutose) 15 gm Q15M PRN PO DECREASED GLUCOSE; Start 07/18/16 at 05:30 Glucose (Glutose) 22.5 gm Q15M PRN PO DECREASED GLUCOSE; Start 07/18/16 at 05: 30 Dextrose (D50w Syringe) 25 ml Q15M PRN IV DECREASED GLUCOSE; Start 07/18/16 at 05:30 Dextrose (D50w Syringe) 50 ml Q15M PRN IV DECREASED GLUCOSE; Start 07/18/16 at 05:30 Glucagon (Glucagen) 1 mg Q15M PRN IM DECREASED GLUCOSE; Start 07/18/16 at 05:30 Glucose (Glutose) 15 gm Q15M PRN BUCCAL DECREASED GLUCOSE; Start 07/18/16 at 05 :30 Diagnostic Test (Pha) (Accucheck) 1 ea 02 XX ; Start 07/18/16 at 08:00 Metoprolol Tartrate (Lopressor) 50 mg BID PO Last administered on 07/21/16 00: 24; Admin Dose 50 MG; Start 07/19/16 at 14:00 Atorvastatin Calcium (Lipitor) 40 mg HS PO Last administered on 07/21/16 00:24 ; Admin Dose 40 MG; Start 07/19/16 at 21:00 Lisinopril (Zestril) 5 mg BID PO Last administered on 07/21/16 00:24; Admin Dose 5 MG; Start 07/19/16 at 21:00 Epoetin Lico (Epogen (Esrd)) 10,000 units TuThSa@17 SC ; Start 07/21/16 at 17:00 Aspirin (Aspirin) 81 mg DAILY PO ; Start 07/21/16 at 09:00 Amiodarone HCl (Cordarone) 200 mg BID PO Last administered on 07/21/16 00:25; Admin Dose 200 MG; Start 07/20/16 at 12:00 Gentamicin Sulfate (Gentamicin Iv Per Pharmacy) GENTAMICIN PER PHARMACY NOTE XX ; Start 07/20/16 at 14:30 Trimethobenzamide HCl 200 mg 200 mg Q6H PRN IM NAUSEA AND/OR VOMITING Last administered on 07/20/16 22:50; Admin Dose 200 MG; Start 07/20/16 at 21:00 Ondansetron HCl/ Sodium Chloride (Zofran Inj/NS) 54 ml @ 216 mls/hr Q6H PRN IV NAUSEA AND/OR VOMITING Last administered on 07/21/16 05:45; Admin Dose 216 MLS/HR; Start 07/20/16 at 21:00 Assessment/Plan Chief Complaint/Hosp Course 1. End-stage renal disease. The patient had hemodialysis. The patient has apparent line infection. Now PermCath removed. The patient will be on line holiday for 1 to 2 days before a temporary catheter is placed. We will monitor for daily dialytic needs. 2. Sepsis, likely line infection. The patient's peripheral blood cultures are positive for gram-negative rods. The patient also developed chills during the course of dialysis highly suggestive of a PermCath line infection. I spoke with Infectious Disease who agrees with removal of PermCath. I spoke with Dr. Whitaker who will plan for PermCath removal this morning. We will continue to follow up blood cultures. Continue antibiotic therapy and monitor closely. 3. Anemia of chronic disease. Continue to monitor hemoglobin and hematocrit levels. Continue Epogen. 4. Mineral bone disorder. Monitor calcium and phosphorus levels. Continue phosphate binders. 5. Hypertension. Continue current blood pressure regimen. 6. Diabetes. Continue Accu-Cheks and sliding scale. 7. Atrial fibrillation, new onset. Etiology may be related to underlying sepsis. Currently on amiodarone drip. The patient is rate controlled. Continue current medical management. We will follow up with meat cooler, Dr. Silveira. Problems: LEAH PALACIOS MD Jul 21, 2016 09:36
--- NOTE | 2016-07-21 09:41 | CONS ---
Date/Time of Note Date/Time of Note DATE: 07/21/16 TIME: 09:39 Assessment/Plan Assessment/Plan Chief Complaint/Hosp Course PAF, currently sinus rhythm Elevated troponin Preserved ejection fraction Sepsis with gram-negative bacteremia Acute blood loss anemia End-stage renal disease on hemodialysis Diabetes Problems: Additional Assessment/Plan ABX ASA Beta erin, MEIR Statin ischemic workup eventually Consultation Date/Type/Reason Admit Date/Time Jul 17, 2016 at 20:10 Initial Consult Date Type of Consultation: CV 24 HR Interval Summary Free Text/Dictation no chest pain, no sob, no palpitations Detailed Summary Respiratory: no complaints Cardiovascular: no complaints Gastrointestinal: no complaints Musculoskeletal: no complaints Skin: no complaints Neurologic: no complaints Exam/Review of Systems Vital Signs Vitals Vital Signs Date Time Temp Pulse Resp B/P Pulse Ox O2 Delivery O2 Flow Rate FiO2 07/21/16 08:00 64 07/21/16 06:00 16 146/62 97 Nasal Cannula 07/21/16 04:00 97.5 07/21/16 01:37 2.0 Intake and Output 07/20/16 07/20/16 07/21/16 15:00 23:00 07:00 Intake Total 502 ml 419.5 ml 534 ml Output Total 150 ml 200 ml Balance 352 ml 219.5 ml 534 ml Exam Head: atraumatic, normocephalic Neck: supple Respiratory: clear to auscultation Cardiovascular: regular rate and rhythm Gastrointestinal: soft Musculoskeletal: nl extremities to inspection Results Result Diagram: 07/21/16 0526 07/21/16 0526 Results 24 hrs Laboratory Tests Test 07/20/16 11:22 07/20/16 15:28 07/20/16 17:19 07/20/16 21:30 Bedside Glucose 109 97 110 Creatine Kinase 52 Creatine Kinase Index 10.8 Creatinine Kinase MB (Mass) 5.61 H Troponin I 4.520 *H Test 07/21/16 05:26 07/21/16 07:56 Anion Gap 21 H Basophils # 0.1 Basophils % 0.7 Blood Urea Nitrogen 32 H Calcium Level 8.0 L Carbon Dioxide Level 23 Chloride Level 103 Creatine Kinase 53 Creatine Kinase Index 5.9 Creatinine 5.04 H Creatinine Kinase MB (Mass) 3.12 H Eosinophils # 0.1 Eosinophils % 0.5 Glucose Level 86 Hematocrit 31.9 #L Hemoglobin 10.0 #L Lymphocytes # 1.2 Lymphocytes % 10.5 L Mean Corpuscular Hemoglobin 28.6 L Mean Corpuscular Hemoglobin Concent 31.3 L Mean Corpuscular Volume 91.1 Mean Platelet Volume 11.5 H Monocytes # 0.8 Monocytes % 6.8 Neutrophils # 8.8 H Neutrophils % 77.1 H Nucleated Red Blood Cells # 0.0 Nucleated Red Blood Cells % 0.0 Platelet Count 194 Potassium Level 5.2 H Red Blood Count 3.50 #L Red Cell Distribution Width 15.8 H Sodium Level 142 Troponin I 2.540 *H White Blood Count 11.4 H Bedside Glucose 89 Medications Medications Current Medications Acetaminophen (Tylenol Tab) 650 mg Q6H PRN PO PAIN LEVEL 1-3 OR FEVER Last administered on 07/18/16 08:28; Admin Dose 650 MG; Start 07/17/16 at 21:00 Acetaminophen/ Hydrocodone Bitart ([place] (5/325)) 1 tab Q6H PRN PO MODERATE PAIN LEVEL 4-6; Start 07/17/16 at 21:00 Morphine Sulfate (morphine) 2 mg Q4H PRN IV SEVERE PAIN LEVEL 7-10 Last administered on 07/20/16 16:47; Admin Dose 2 MG; Start 07/17/16 at 21:00 Docusate Sodium (Colace) 100 mg Q12H PRN PO CONSTIPATION; Start 07/17/16 at 21: 00 Magnesium Hydroxide (Milk Of Mag) 30 ml DAILY PRN PO CONSTIPATION; Start at 21:00 Sodium Biphosphate/ Sodium Phosphate (Fleet Enema) 133 ml DAILY PRN [place] CONSTIPATION; Start 07/17/16 at 21:00 Heparin Sodium (Porcine) (Heparin (5000 Units/0.5 ml)) 5,000 unit Q12 SC Last administered on 07/21/16 08:29; Admin Dose 5,000 UNIT; Start 07/17/16 at 23:00 Lorazepam (Ativan) 0.5 mg Q6H PRN IV ANXIETY; Start 07/17/16 at 21:00 Hydralazine HCl (Apresoline) 10 mg Q6H PRN IV ELEVATED BLOOD PRESSURE Last administered on 07/21/16 08:28; Admin Dose 10 MG; Start 07/17/16 at 21:00 Nitroglycerin (Nitroglycerin (Sl Tab) 0.4 Mg) 1 tab Q5M PRN SL ANGINA Last administered on 07/19/16 13:57; Admin Dose 1 TAB; Start 07/17/16 at 21:00 Ferrous Sulfate (Ferrous Sulfate (Ec)) 325 mg TID PO Last administered on 00:23; Admin Dose 325 MG; Start 07/17/16 at 21:00 Isoniazid (Isoniazid) 300 mg DAILY PO Last administered on 07/20/16 09:31; Admin Dose 300 MG; Start 07/18/16 at 09:00 Pentoxifylline (Trental) 400 mg DAILY PO Last administered on 07/20/16 09:32; Admin Dose 400 MG; Start 07/18/16 at 09:00 Pyridoxine HCl (Vitamin B6) 50 mg DAILY PO Last administered on 07/20/16 09:32 ; Admin Dose 50 MG; Start 07/18/16 at 09:00 Miscellaneous Information 1 ea NOTE XX ; Start 07/18/16 at 05:30 Glucose (Glutose) 15 gm Q15M PRN PO DECREASED GLUCOSE; Start 07/18/16 at 05:30 Glucose (Glutose) 22.5 gm Q15M PRN PO DECREASED GLUCOSE; Start 07/18/16 at 05: 30 Dextrose (D50w Syringe) 25 ml Q15M PRN IV DECREASED GLUCOSE; Start 07/18/16 at 05:30 Dextrose (D50w Syringe) 50 ml Q15M PRN IV DECREASED GLUCOSE; Start 07/18/16 at 05:30 Glucagon (Glucagen) 1 mg Q15M PRN IM DECREASED GLUCOSE; Start 07/18/16 at 05:30 Glucose (Glutose) 15 gm Q15M PRN BUCCAL DECREASED GLUCOSE; Start 07/18/16 at 05 :30 Diagnostic Test (Pha) (Accucheck) 1 ea 02 XX ; Start 07/18/16 at 08:00 Metoprolol Tartrate (Lopressor) 50 mg BID PO Last administered on 07/21/16 00: 24; Admin Dose 50 MG; Start 07/19/16 at 14:00 Atorvastatin Calcium (Lipitor) 40 mg HS PO Last administered on 07/21/16 00:24 ; Admin Dose 40 MG; Start 07/19/16 at 21:00 Lisinopril (Zestril) 5 mg BID PO Last administered on 07/21/16 00:24; Admin Dose 5 MG; Start 07/19/16 at 21:00 Epoetin Lico (Epogen (Esrd)) 10,000 units TuThSa@17 SC ; Start 07/21/16 at 17:00 Aspirin (Aspirin) 81 mg DAILY PO ; Start 07/21/16 at 09:00 Amiodarone HCl (Cordarone) 200 mg BID PO Last administered on 07/21/16 00:25; Admin Dose 200 MG; Start 07/20/16 at 12:00 Gentamicin Sulfate (Gentamicin Iv Per Pharmacy) GENTAMICIN PER PHARMACY NOTE XX ; Start 07/20/16 at 14:30 Trimethobenzamide HCl 200 mg 200 mg Q6H PRN IM NAUSEA AND/OR VOMITING Last administered on 07/20/16 22:50; Admin Dose 200 MG; Start 07/20/16 at 21:00 Ondansetron HCl/ Sodium Chloride (Zofran Inj/NS) 54 ml @ 216 mls/hr Q6H PRN IV NAUSEA AND/OR VOMITING Last administered on 07/21/16 05:45; Admin Dose 216 MLS/HR; Start 07/20/16 at 21:00 SARAH CHAMBERS MD Jul 21, 2016 09:41
[2016-07-21] MEDS ORDERED: NA POLYST SULFON 15 GM/60 ML BTL PO ONE (11:00)
--- NOTE | 2016-07-21 15:16 | CONS ---
Date/Time of Note Date/Time of Note DATE: 07/21/16 TIME: 15:13 Assessment/Plan Assessment/Plan Chief Complaint/Hosp Course SUBJECTIVE: The patient is sleeping, c/o nausea, no fevers, nad DIAGNOSTICS: Chest x-ray on admission was negative. MICROBIOLOGY: Blood culture growing Serratia, repeat bld cx negative ANTIMICROBIALS: Gentamicin PHYSICAL EXAMINATION: GENERAL: Well-developed, elderly woman who is awake, in no distress. HEENT: Head atraumatic, normocephalic. Sclerae anicteric. Buccal mucosa pink. NECK: Supple. CHEST: Rise symmetrical. Breath sounds clear, diminished to bases. HEART: S1, S2. ABDOMEN: Soft, bowel sounds present. EXTREMITIES: Without cyanosis. ASSESSMENT: 1. Line sepsis with gram-negative aziza bacteremia==> s/p permacath dc'd. 2. End-stage renal disease. 3. Diabetes. 4. Hypertension. 5. Questionable history of tuberculosis versus history of exposure, remains on INH. 6. Anemia 7. Oral candidiasis PLAN: Clinically stable, continue abx, add oral Nystatin, continue anti-emetics , HD per renal==> s/p line dc'd [facility] staff Problems: Consultation Date/Type/Reason Admit Date/Time Jul 17, 2016 at 20:10 Type of Consultation: id Exam/Review of Systems Vital Signs Vitals Vital Signs Date Time Temp Pulse Resp B/P Pulse Ox O2 Delivery O2 Flow Rate FiO2 07/21/16 13:00 74 13 174/77 98 Nasal Cannula 07/21/16 12:00 98.4 07/21/16 08:05 2.0 Intake and Output 07/20/16 07/20/16 07/21/16 15:00 23:00 07:00 Intake Total 502 ml 419.5 ml 534 ml Output Total 150 ml 200 ml Balance 352 ml 219.5 ml 534 ml Results Result Diagram: 07/21/16 0526 07/21/16 05 Results 24 hrs Laboratory Tests Test 07/20/16 15:28 07/20/16 17:19 07/20/16 21:30 07/21/16 05:26 Creatine Kinase 52 53 Creatine Kinase Index 10.8 5.9 Creatinine Kinase MB (Mass) 5.61 H 3.12 H Troponin I 4.520 *H 2.540 *H Bedside Glucose 97 110 Anion Gap 21 H Basophils # 0.1 Basophils % 0.7 Blood Urea Nitrogen 32 H Calcium Level 8.0 L Carbon Dioxide Level 23 Chloride Level 103 Creatinine 5.04 H Eosinophils # 0.1 Eosinophils % 0.5 Glucose Level 86 Hematocrit 31.9 #L Hemoglobin 10.0 #L Lymphocytes # 1.2 Lymphocytes % 10.5 L Mean Corpuscular Hemoglobin 28.6 L Mean Corpuscular Hemoglobin Concent 31.3 L Mean Corpuscular Volume 91.1 Mean Platelet Volume 11.5 H Monocytes # 0.8 Monocytes % 6.8 Neutrophils # 8.8 H Neutrophils % 77.1 H Nucleated Red Blood Cells # 0.0 Nucleated Red Blood Cells % 0.0 Platelet Count 194 Potassium Level 5.2 H Red Blood Count 3.50 #L Red Cell Distribution Width 15.8 H Sodium Level 142 White Blood Count 11.4 H Test 07/21/16 07:56 Bedside Glucose 89 Medications Medications Current Medications Acetaminophen (Tylenol Tab) 650 mg Q6H PRN PO PAIN LEVEL 1-3 OR FEVER Last administered on 07/18/16 08:28; Admin Dose 650 MG; Start 07/17/16 at 21:00 Acetaminophen/ Hydrocodone Bitart ([place] (5/325)) 1 tab Q6H PRN PO MODERATE PAIN LEVEL 4-6; Start 07/17/16 at 21:00 Morphine Sulfate (morphine) 2 mg Q4H PRN IV SEVERE PAIN LEVEL 7-10 Last administered on 07/20/16 16:47; Admin Dose 2 MG; Start 07/17/16 at 21:00 Docusate Sodium (Colace) 100 mg Q12H PRN PO CONSTIPATION; Start 07/17/16 at 21: 00 Magnesium Hydroxide (Milk Of Mag) 30 ml DAILY PRN PO CONSTIPATION; Start at 21:00 Sodium Biphosphate/ Sodium Phosphate (Fleet Enema) 133 ml DAILY PRN [place] CONSTIPATION; Start 07/17/16 at 21:00 Heparin Sodium (Porcine) (Heparin (5000 Units/0.5 ml)) 5,000 unit Q12 SC Last administered on 07/21/16 08:29; Admin Dose 5,000 UNIT; Start 07/17/16 at 23:00 Lorazepam (Ativan) 0.5 mg Q6H PRN IV ANXIETY; Start 07/17/16 at 21:00 Hydralazine HCl (Apresoline) 10 mg Q6H PRN IV ELEVATED BLOOD PRESSURE Last administered on 07/21/16 08:28; Admin Dose 10 MG; Start 07/17/16 at 21:00 Nitroglycerin (Nitroglycerin (Sl Tab) 0.4 Mg) 1 tab Q5M PRN SL ANGINA Last administered on 07/19/16 13:57; Admin Dose 1 TAB; Start 07/17/16 at 21:00 Ferrous Sulfate (Ferrous Sulfate (Ec)) 325 mg TID PO Last administered on 00:23; Admin Dose 325 MG; Start 07/17/16 at 21:00 Isoniazid (Isoniazid) 300 mg DAILY PO Last administered on 07/20/16 09:31; Admin Dose 300 MG; Start 07/18/16 at 09:00 Pentoxifylline (Trental) 400 mg DAILY PO Last administered on 07/20/16 09:32; Admin Dose 400 MG; Start 07/18/16 at 09:00 Pyridoxine HCl (Vitamin B6) 50 mg DAILY PO Last administered on 07/20/16 09:32 ; Admin Dose 50 MG; Start 07/18/16 at 09:00 Miscellaneous Information 1 ea NOTE XX ; Start 07/18/16 at 05:30 Glucose (Glutose) 15 gm Q15M PRN PO DECREASED GLUCOSE; Start 07/18/16 at 05:30 Glucose (Glutose) 22.5 gm Q15M PRN PO DECREASED GLUCOSE; Start 07/18/16 at 05: 30 Dextrose (D50w Syringe) 25 ml Q15M PRN IV DECREASED GLUCOSE; Start 07/18/16 at 05:30 Dextrose (D50w Syringe) 50 ml Q15M PRN IV DECREASED GLUCOSE; Start 07/18/16 at 05:30 Glucagon (Glucagen) 1 mg Q15M PRN IM DECREASED GLUCOSE; Start 07/18/16 at 05:30 Glucose (Glutose) 15 gm Q15M PRN BUCCAL DECREASED GLUCOSE; Start 07/18/16 at 05 :30 Diagnostic Test (Pha) (Accucheck) 1 ea 02 XX ; Start 07/18/16 at 08:00 Metoprolol Tartrate (Lopressor) 50 mg BID PO Last administered on 07/21/16 00: 24; Admin Dose 50 MG; Start 07/19/16 at 14:00 Atorvastatin Calcium (Lipitor) 40 mg HS PO Last administered on 07/21/16 00:24 ; Admin Dose 40 MG; Start 07/19/16 at 21:00 Lisinopril (Zestril) 5 mg BID PO Last administered on 07/21/16 00:24; Admin Dose 5 MG; Start 07/19/16 at 21:00 Epoetin Lico (Epogen (Esrd)) 10,000 units TuThSa@17 SC ; Start 07/21/16 at 17:00 Aspirin (Aspirin) 81 mg DAILY PO ; Start 07/21/16 at 09:00 Amiodarone HCl (Cordarone) 200 mg BID PO Last administered on 07/21/16 00:25; Admin Dose 200 MG; Start 07/20/16 at 12:00 Gentamicin Sulfate (Gentamicin Iv Per Pharmacy) GENTAMICIN PER PHARMACY NOTE XX ; Start 07/20/16 at 14:30 Trimethobenzamide HCl 200 mg 200 mg Q6H PRN IM NAUSEA AND/OR VOMITING Last administered on 07/20/16 22:50; Admin Dose 200 MG; Start 07/20/16 at 21:00 Ondansetron HCl/ Sodium Chloride (Zofran Inj/NS) 54 ml @ 216 mls/hr Q6H PRN IV NAUSEA AND/OR VOMITING Last administered on 07/21/16 05:45; Admin Dose 216 MLS/HR; Start 07/20/16 at 21:00 TAI MENESES NP Jul 21, 2016 15:16
--- NOTE | 2016-07-21 16:46 | PN ---
Date/Time of Note Date/Time of Note DATE: 07/21/16 TIME: 16:37 Assessment/Plan VTE Prophylaxis VTE Prophylaxis Intervention: heparin Lines/Catheters IV C[facility]ter Type (from [facility] Saline [facility] Urinary Cath still in place: No Assessment/Plan Chief Complaint/Hosp Course 1. Atrial fibrillation, new onset Continue metoprolol 2. Chest pain, ECG, echo, troponin, aspirin, metoprolol, statin cardiology consult appreciated, troponin elevation likely secondary to tachyarrhythmia, continue to monitor 3. Sepsis with bacteremia secondary to PermCath infection status post removal today Culture shows Serratia, ID on the case Continue antibiotics 4. Diabetes, continue Accu-Cheks and sliding scale. 5. End-stage renal disease Continue dialysis 6. Anemia of chronic kidney disease. one unit PRBC 07/19/2016 7. Mineral bone disorder. We will monitor calcium and phosphorus levels. Continue phos binder. 8. Hypertension. Continue current blood pressure regimen 9. Nausea Increase Zofran dose 10. Gastrointestinal and deep venous thrombosis prophylaxis. Continue proton pump inhibitor and heparin. Problems: Subjective 24 Hr Interval Summary Gastrointestinal: nausea Exam/Review of Systems Vital Signs Vitals Vital Signs Date Time Temp Pulse Resp B/P Pulse Ox O2 Delivery O2 Flow Rate FiO2 07/21/16 15:17 2.0 07/21/16 13:00 74 13 174/77 98 Nasal Cannula 07/21/16 12:00 98.4 Intake and Output 07/20/16 07/20/16 07/21/16 15:00 23:00 07:00 Intake Total 502 ml 419.5 ml 534 ml Output Total 150 ml 200 ml Balance 352 ml 219.5 ml 534 ml Exam Constitutional: alert Respiratory: clear to auscultation Cardiovascular: regular rate and rhythm Gastrointestinal: soft, No distended Musculoskeletal: nl extremities to inspection Results Result Diagram: 07/21/16 0507/21/16 0526 Results 24 hrs Laboratory Tests Test 07/20/16 17:19 07/20/16 21:30 07/21/16 05:26 07/21/16 07:56 Bedside Glucose 97 110 89 Anion Gap 21 H Basophils # 0.1 Basophils % 0.7 Blood Urea Nitrogen 32 H Calcium Level 8.0 L Carbon Dioxide Level 23 Chloride Level 103 Creatine Kinase 53 Creatine Kinase Index 5.9 Creatinine 5.04 H Creatinine Kinase MB (Mass) 3.12 H Eosinophils # 0.1 Eosinophils % 0.5 Glucose Level 86 Hematocrit 31.9 #L Hemoglobin 10.0 #L Lymphocytes # 1.2 Lymphocytes % 10.5 L Mean Corpuscular Hemoglobin 28.6 L Mean Corpuscular Hemoglobin Concent 31.3 L Mean Corpuscular Volume 91.1 Mean Platelet Volume 11.5 H Monocytes # 0.8 Monocytes % 6.8 Neutrophils # 8.8 H Neutrophils % 77.1 H Nucleated Red Blood Cells # 0.0 Nucleated Red Blood Cells % 0.0 Platelet Count 194 Potassium Level 5.2 H Red Blood Count 3.50 #L Red Cell Distribution Width 15.8 H Sodium Level 142 Troponin I 2.540 *H White Blood Count 11.4 H Medications Medications Current Medications Acetaminophen (Tylenol Tab) 650 mg Q6H PRN PO PAIN LEVEL 1-3 OR FEVER Last administered on 07/18/16 08:28; Admin Dose 650 MG; Start 07/17/16 at 21:00 Acetaminophen/ Hydrocodone Bitart ([place] (5/325)) 1 tab Q6H PRN PO MODERATE PAIN LEVEL 4-6; Start 07/17/16 at 21:00 Morphine Sulfate (morphine) 2 mg Q4H PRN IV SEVERE PAIN LEVEL 7-10 Last administered on 07/20/16 16:47; Admin Dose 2 MG; Start 07/17/16 at 21:00 Docusate Sodium (Colace) 100 mg Q12H PRN PO CONSTIPATION; Start 07/17/16 at 21: 00 Magnesium Hydroxide (Milk Of Mag) 30 ml DAILY PRN PO CONSTIPATION; Start at 21:00 Sodium Biphosphate/ Sodium Phosphate (Fleet Enema) 133 ml DAILY PRN [place] CONSTIPATION; Start 07/17/16 at 21:00 Heparin Sodium (Porcine) (Heparin (5000 Units/0.5 ml)) 5,000 unit Q12 SC Last administered on 07/21/16 08:29; Admin Dose 5,000 UNIT; Start 07/17/16 at 23:00 Lorazepam (Ativan) 0.5 mg Q6H PRN IV ANXIETY; Start 07/17/16 at 21:00 Hydralazine HCl (Apresoline) 10 mg Q6H PRN IV ELEVATED BLOOD PRESSURE Last administered on 07/21/16 08:28; Admin Dose 10 MG; Start 07/17/16 at 21:00 Nitroglycerin (Nitroglycerin (Sl Tab) 0.4 Mg) 1 tab Q5M PRN SL ANGINA Last administered on 07/19/16 13:57; Admin Dose 1 TAB; Start 07/17/16 at 21:00 Ferrous Sulfate (Ferrous Sulfate (Ec)) 325 mg TID PO Last administered on 00:23; Admin Dose 325 MG; Start 07/17/16 at 21:00 Isoniazid (Isoniazid) 300 mg DAILY PO Last administered on 07/20/16 09:31; Admin Dose 300 MG; Start 07/18/16 at 09:00 Pentoxifylline (Trental) 400 mg DAILY PO Last administered on 07/20/16 09:32; Admin Dose 400 MG; Start 07/18/16 at 09:00 Pyridoxine HCl (Vitamin B6) 50 mg DAILY PO Last administered on 07/20/16 09:32 ; Admin Dose 50 MG; Start 07/18/16 at 09:00 Miscellaneous Information 1 ea NOTE XX ; Start 07/18/16 at 05:30 Glucose (Glutose) 15 gm Q15M PRN PO DECREASED GLUCOSE; Start 07/18/16 at 05:30 Glucose (Glutose) 22.5 gm Q15M PRN PO DECREASED GLUCOSE; Start 07/18/16 at 05: 30 Dextrose (D50w Syringe) 25 ml Q15M PRN IV DECREASED GLUCOSE; Start 07/18/16 at 05:30 Dextrose (D50w Syringe) 50 ml Q15M PRN IV DECREASED GLUCOSE; Start 07/18/16 at 05:30 Glucagon (Glucagen) 1 mg Q15M PRN IM DECREASED GLUCOSE; Start 07/18/16 at 05:30 Glucose (Glutose) 15 gm Q15M PRN BUCCAL DECREASED GLUCOSE; Start 07/18/16 at 05 :30 Diagnostic Test (Pha) (Accucheck) 1 ea 02 XX ; Start 07/18/16 at 08:00 Metoprolol Tartrate (Lopressor) 50 mg BID PO Last administered on 07/21/16 00: 24; Admin Dose 50 MG; Start 07/19/16 at 14:00 Atorvastatin Calcium (Lipitor) 40 mg HS PO Last administered on 07/21/16 00:24 ; Admin Dose 40 MG; Start 07/19/16 at 21:00 Lisinopril (Zestril) 5 mg BID PO Last administered on 07/21/16 00:24; Admin Dose 5 MG; Start 07/19/16 at 21:00 Epoetin Lico (Epogen (Esrd)) 10,000 units TuThSa@17 SC ; Start 07/21/16 at 17:00 Aspirin (Aspirin) 81 mg DAILY PO ; Start 07/21/16 at 09:00 Amiodarone HCl (Cordarone) 200 mg BID PO Last administered on 07/21/16 00:25; Admin Dose 200 MG; Start 07/20/16 at 12:00 Gentamicin Sulfate (Gentamicin Iv Per Pharmacy) GENTAMICIN PER PHARMACY NOTE XX ; Start 07/20/16 at 14:30 Trimethobenzamide HCl 200 mg 200 mg Q6H PRN IM NAUSEA AND/OR VOMITING Last administered on 07/20/16 22:50; Admin Dose 200 MG; Start 07/20/16 at 21:00 Ondansetron HCl/ Sodium Chloride (Zofran Inj/NS) 54 ml @ 216 mls/hr Q6H PRN IV NAUSEA AND/OR VOMITING Last administered on 07/21/16 05:45; Admin Dose 216 MLS/HR; Start 07/20/16 at 21:00 Nystatin (Nystatin Susp) 5 ml QID PO ; Start 07/21/16 at 17:00 NATALIA PICKERING Jul 21, 2016 16:46
[2016-07-21] MEDS: TRIMETHOBENZAMIDE 100 MG/ML VIAL IM PRN (16:52)
[2016-07-21] MEDS: NYSTATIN SUSP 5 ML CUP PO SCH ×2 (16:52→21:00)
[2016-07-21] MEDS: EPOETIN 10000 UNITS/1 ML INJ (ESRD) SC SCH (17:36)
[2016-07-22] VITALS (13 sets, daily range): BP systolic 164–205; BP diastolic 69–91; PULSE 65–76; RESP 18–20
[2016-07-22] MEDS: AMIODARONE 200 MG TAB PO SCH (00:21)
[2016-07-22] MEDS: ATORVASTATIN 40 MG TAB PO SCH ×2 (00:21→21:55)
[2016-07-22] MEDS: FERROUS SULFATE (EC) 325 MG TAB PO SCH ×4 (00:21→21:55)
[2016-07-22] MEDS: METOPROLOL 50 MG TAB PO SCH ×3 (00:22→21:56)
[2016-07-22] MEDS: LISINOPRIL 5 MG TAB PO SCH ×3 (00:22→21:56)
[2016-07-22] MEDS: ACCUCHECK 2 AM XX SCH (02:00)
[2016-07-22] MEDS: LEVOTHYROXINE 125 MCG TAB PO SCH (06:30)
[2016-07-22] MEDS: ONDANSETRON INJ 8 MG in SOD CHLORIDE 0.9% 50 ML IV PRN (06:54)
[2016-07-22 07:35] LABS: ADD SCAN DIFF NO
[2016-07-22 07:43] LABS: ABNORMAL IP MESSAGE 1; BASOPHIL # 0.1 10^3/ul (0.0-0.1); BASOPHILS % 0.6 % (0.0-2.0); EOSINOPHILS # 0.3 10^3/ul (0.0-0.5); EOSINOPHILS % 2.6 % (0.0-7.0); HEMOGLOBIN 10.1 g/dl (12.0-16.0); LYMPHOCYTES # 1.2 10^3/ul (0.8-2.9); LYMPHOCYTES % 12.4 % (15.0-51.0); MEAN CORPUSCULAR HEMOGLOBIN 28.9 pg (29.0-33.0); MEAN CORPUSCULAR HGB CONC 31.6 g/dl (32.0-37.0); MEAN CORPUSCULAR VOLUME 91.4 fl (82.0-101.0); MEAN PLATELET VOLUME 11.3 fl (7.4-10.4); MONOCYTE # 0.9 10^3/ul (0.3-0.9); NEUTROPHIL # 6.5 10^3/ul (1.6-7.5); NEUTROPHILS % 68.4 % (39.0-77.0); PLATELET COUNT 210 10^3/UL (140-415); RED CELL DISTRIBUTION WIDTH 15.8 % (11.5-14.5); WHITE BLOOD COUNT 9.6 10^3/ul (4.8-10.8)
[2016-07-22] MEDS: Insulin NOVOLOG SS MILD Algorithm (SS with meals and bedtime) SC SCH ×4 (07:48→21:00)
[2016-07-22 07:49] LABS: ALBUMIN 3.3 g/dl (3.3-4.9); POTASSIUM 4.8 mmol/L (3.5-5.1)
[2016-07-22] MEDS: CALCIUM ACETATE 667 MG CAP PO SCH ×3 (07:50→17:31)
[2016-07-22 07:51] LABS: CREATININE 6.31 mg/dl (0.44-1.00)
[2016-07-22 07:52] LABS: ALBUMIN/GLOBULIN RATIO 0.91; CALCIUM 8.2 mg/dl (8.4-10.2); PHOSPHORUS 6.2 mg/dl (2.5-4.9); TOTAL PROTEIN 6.9 g/dl (6.1-8.1)
[2016-07-22 07:53] LABS: MAGNESIUM 2.1 mg/dl (1.7-2.5)
[2016-07-22] MEDS: NYSTATIN SUSP 5 ML CUP PO SCH ×4 (09:00→21:55)
[2016-07-22] MEDS: PENTOXIFYLLINE (SR) 400 MG TAB PO SCH (09:00)
[2016-07-22] MEDS: PYRIDOXINE 50 MG TAB PO SCH (09:00)
[2016-07-22] MEDS: ASPIRIN 81 MG TAB PO SCH (09:00)
[2016-07-22] MEDS: ISONIAZID 300 MG TAB PO SCH (09:00)
[2016-07-22] MEDS: HEPARIN 5,000 UNIT/0.5 ML SYG SC SCH ×2 (09:51→22:00)
[2016-07-22] MEDS: TRIMETHOBENZAMIDE 100 MG/ML VIAL IM PRN (09:53)
[2016-07-22] MEDS ORDERED: METOCLOPRAMIDE 10 MG INJ IV PRN (11:30)
--- NOTE | 2016-07-22 11:37 | PN ---
Date/Time of Note Date/Time of Note DATE: 07/22/16 TIME: 11:30 Assessment/Plan VTE Prophylaxis VTE Prophylaxis Intervention: heparin Lines/Catheters IV [facility]from [facility] Saline [facility] Urinary Cath still in place: No Assessment/Plan Chief Complaint/Hosp Course 1. Atrial fibrillation, new onset Continue metoprolol 2. Chest pain, ECG, echo, troponin, aspirin, metoprolol, statin cardiology consult appreciated, troponin elevation likely secondary to tachyarrhythmia, improving 3. Sepsis with bacteremia secondary to PermCath infection status post removal today Culture shows Serratia, ID on the case Continue antibiotics 4. Diabetes, continue Accu-Cheks and sliding scale. 5. End-stage renal disease Continue dialysis 6. Anemia of chronic kidney disease. one unit PRBC 07/19/2016 7. Mineral bone disorder. We will monitor calcium and phosphorus levels. Continue phos binder. 8. Hypertension. Continue current blood pressure regimen 9. Nausea possibly 2/2 Gastroparesis from DM Increased Zofran dose not helping and so have started Reglan 10. Gastrointestinal and deep venous thrombosis prophylaxis. Continue proton pump inhibitor and heparin. Problems: Subjective 24 Hr Interval Summary Gastrointestinal: nausea Exam/Review of Systems Vital Signs Vitals Vital Signs Date Time Temp Pulse Resp B/P Pulse Ox O2 Delivery O2 Flow Rate FiO2 07/22/16 08:30 Nasal Cannula 2.0 07/22/16 08:04 66 07/22/16 07:58 98.6 20 177/81 94 Intake and Output 07/21/16 07/21/16 07/22/16 15:00 23:00 07:00 Intake Total 100 ml 100 ml 174 ml Output Total 0 ml 0 ml Balance 100 ml 100 ml 174 ml Exam Constitutional: alert, oriented Respiratory: clear to auscultation Cardiovascular: regular rate and rhythm Gastrointestinal: soft, No distended Musculoskeletal: nl extremities to inspection Results Result Diagram: 07/22/16 0700 07/22/16 0700 Results 24 hrs Laboratory Tests Test 07/21/16 17:10 07/21/16 21:04 07/22/16 07:00 07/22/16 07:43 Bedside Glucose 80 108 149 Alanine Aminotransferase (ALT/SGPT) 16 Albumin 3.3 Albumin/Globulin Ratio 0.91 Alkaline Phosphatase 182 H Anion Gap 20 H Aspartate Amino Transf (AST/SGOT) 26 Basophils # 0.1 Basophils % 0.6 Blood Urea Nitrogen 40 H Calcium Level 8.2 L Carbon Dioxide Level 23 Chloride Level 101 Creatinine 6.31 H Direct Bilirubin 0.00 Eosinophils # 0.3 Eosinophils % 2.6 Globulin 3.60 H Glucose Level 149 # Hematocrit 32.0 L Hemoglobin 10.1 L Indirect Bilirubin 0.0 Lymphocytes # 1.2 Lymphocytes % 12.4 L Magnesium Level 2.1 Mean Corpuscular Hemoglobin 28.9 L Mean Corpuscular Hemoglobin Concent 31.6 L Mean Corpuscular Volume 91.4 Mean Platelet Volume 11.3 H Monocytes # 0.9 Monocytes % 9.0 Neutrophils # 6.5 Neutrophils % 68.4 Nucleated Red Blood Cells # 0.0 Nucleated Red Blood Cells % 0.0 Phosphorus Level 6.2 H Platelet Count 210 Potassium Level 4.8 Red Blood Count 3.50 L Red Cell Distribution Width 15.8 H Sodium Level 139 Total Bilirubin 0.0 L Total Protein 6.9 White Blood Count 9.6 Medications Medications Current Medications Acetaminophen (Tylenol Tab) 650 mg Q6H PRN PO PAIN LEVEL 1-3 OR FEVER Last administered on 07/18/16 08:28; Admin Dose 650 MG; Start 07/17/16 at 21:00 Acetaminophen/ Hydrocodone Bitart ([place] (5/325)) 1 tab Q6H PRN PO MODERATE PAIN LEVEL 4-6; Start 07/17/16 at 21:00 Morphine Sulfate (morphine) 2 mg Q4H PRN IV SEVERE PAIN LEVEL 7-10 Last administered on 07/20/16 16:47; Admin Dose 2 MG; Start 07/17/16 at 21:00 Docusate Sodium (Colace) 100 mg Q12H PRN PO CONSTIPATION; Start 07/17/16 at 21: 00 Magnesium Hydroxide (Milk Of Mag) 30 ml DAILY PRN PO CONSTIPATION; Start at 21:00 Sodium Biphosphate/ Sodium Phosphate (Fleet Enema) 133 ml DAILY PRN [place] CONSTIPATION; Start 07/17/16 at 21:00 Heparin Sodium (Porcine) (Heparin (5000 Units/0.5 ml)) 5,000 unit Q12 SC Last administered on 07/22/16 09:51; Admin Dose 5,000 UNIT; Start 07/17/16 at 23:00 Lorazepam (Ativan) 0.5 mg Q6H PRN IV ANXIETY; Start 07/17/16 at 21:00 Hydralazine HCl (Apresoline) 10 mg Q6H PRN IV ELEVATED BLOOD PRESSURE Last administered on 07/21/16 23:47; Admin Dose 10 MG; Start 07/17/16 at 21:00 Nitroglycerin (Nitroglycerin (Sl Tab) 0.4 Mg) 1 tab Q5M PRN SL ANGINA Last administered on 07/19/16 13:57; Admin Dose 1 TAB; Start 07/17/16 at 21:00 Ferrous Sulfate (Ferrous Sulfate (Ec)) 325 mg TID PO Last administered on 00:21; Admin Dose 325 MG; Start 07/17/16 at 21:00 Isoniazid (Isoniazid) 300 mg DAILY PO Last administered on 07/20/16 09:31; Admin Dose 300 MG; Start 07/18/16 at 09:00 Pentoxifylline (Trental) 400 mg DAILY PO Last administered on 07/20/16 09:32; Admin Dose 400 MG; Start 07/18/16 at 09:00 Pyridoxine HCl (Vitamin B6) 50 mg DAILY PO Last administered on 07/20/16 09:32 ; Admin Dose 50 MG; Start 07/18/16 at 09:00 Miscellaneous Information 1 ea NOTE XX ; Start 07/18/16 at 05:30 Glucose (Glutose) 15 gm Q15M PRN PO DECREASED GLUCOSE; Start 07/18/16 at 05:30 Glucose (Glutose) 22.5 gm Q15M PRN PO DECREASED GLUCOSE; Start 07/18/16 at 05: 30 Dextrose (D50w Syringe) 25 ml Q15M PRN IV DECREASED GLUCOSE; Start 07/18/16 at 05:30 Dextrose (D50w Syringe) 50 ml Q15M PRN IV DECREASED GLUCOSE; Start 07/18/16 at 05:30 Glucagon (Glucagen) 1 mg Q15M PRN IM DECREASED GLUCOSE; Start 07/18/16 at 05:30 Glucose (Glutose) 15 gm Q15M PRN BUCCAL DECREASED GLUCOSE; Start 07/18/16 at 05 :30 Diagnostic Test (Pha) (Accucheck) 1 ea 02 XX ; Start 07/18/16 at 08:00 Metoprolol Tartrate (Lopressor) 50 mg BID PO Last administered on 07/22/16 00: 22; Admin Dose 50 MG; Start 07/19/16 at 14:00 Atorvastatin Calcium (Lipitor) 40 mg HS PO Last administered on 07/22/16 00:21 ; Admin Dose 40 MG; Start 07/19/16 at 21:00 Lisinopril (Zestril) 5 mg BID PO Last administered on 07/22/16 00:22; Admin Dose 5 MG; Start 07/19/16 at 21:00 Epoetin Lico (Epogen (Esrd)) 10,000 units TuThSa@17 SC Last administered on 17:36; Admin Dose 10,000 UNITS; Start 07/21/16 at 17:00 Aspirin (Aspirin) 81 mg DAILY PO ; Start 07/21/16 at 09:00 Gentamicin Sulfate (Gentamicin Iv Per Pharmacy) GENTAMICIN PER PHARMACY NOTE XX ; Start 07/20/16 at 14:30 Trimethobenzamide HCl 200 mg 200 mg Q6H PRN IM NAUSEA AND/OR VOMITING Last administered on 07/22/16 09:53; Admin Dose 200 MG; Start 07/20/16 at 21:00 Ondansetron HCl/ Sodium Chloride (Zofran Inj/NS) 54 ml @ 216 mls/hr Q6H PRN IV NAUSEA AND/OR VOMITING Last administered on 07/22/16 06:54; Admin Dose 216 MLS/HR; Start 07/20/16 at 21:00 Nystatin (Nystatin Susp) 5 ml QID PO Last administered on 07/21/16 16:52; Admin Dose 5 ML; Start 07/21/16 at 17:00 Amiodarone HCl (Cordarone) 200 mg DAILY PO ; Start 07/23/16 at 09:00 NATALIA PICKERING Jul 22, 2016 11:37
--- NOTE | 2016-07-22 12:00 | CONS ---
Date/Time of Note Date/Time of Note DATE: 07/22/16 TIME: 11:58 Consult Date/Type/Reason Admit Date/Time Jul 17, 2016 at 20:10 Type of Consultation: neph Subjective the patient developed chills and went into atrial fibrillation with rapid ventricular rate. The patient was transferred to intensive care unit on an amiodarone drip. had line removed. No other acute events noted. No hemoptysis , hematemesis, or hematochezia. now back in med-surg. intermittently refusing meals. OBJECTIVE: HEENT: Head is normocephalic. NECK: Supple. HEART: Regular rate. LUNGS: Show diminished breath sounds at base. ABDOMEN: Soft, nontender to palpation. No rebound or guarding. EXTREMITIES: Negative for clubbing, cyanosis, edema. DERMATOLOGIC: No rashes. MUSCULOSKELETAL: No joint effusions. NEUROLOGIC: No change in exam. MEDICATIONS: The patient's medications have been reviewed. Objective Vital Signs Date Time Temp Pulse Resp B/P Pulse Ox O2 Delivery O2 Flow Rate FiO2 07/22/16 08:30 Nasal Cannula 2.0 07/22/16 08:04 66 07/22/16 07:58 98.6 20 177/81 94 Intake and Output 07/21/16 07/21/16 07/22/16 15:00 23:00 07:00 Intake Total 100 ml 100 ml 174 ml Output Total 0 ml 0 ml Balance 100 ml 100 ml 174 ml Results/Medications Result Diagram: 07/22/16 0700 07/22/16 0700 Results 24 hrs Laboratory Tests Test 07/21/16 17:10 07/21/16 21:04 07/22/16 07:00 07/22/16 07:43 Bedside Glucose 80 108 149 Alanine Aminotransferase (ALT/SGPT) 16 Albumin 3.3 Albumin/Globulin Ratio 0.91 Alkaline Phosphatase 182 H Anion Gap 20 H Aspartate Amino Transf (AST/SGOT) 26 Basophils # 0.1 Basophils % 0.6 Blood Urea Nitrogen 40 H Calcium Level 8.2 L Carbon Dioxide Level 23 Chloride Level 101 Creatinine 6.31 H Direct Bilirubin 0.00 Eosinophils # 0.3 Eosinophils % 2.6 Globulin 3.60 H Glucose Level 149 # Hematocrit 32.0 L Hemoglobin 10.1 L Indirect Bilirubin 0.0 Lymphocytes # 1.2 Lymphocytes % 12.4 L Magnesium Level 2.1 Mean Corpuscular Hemoglobin 28.9 L Mean Corpuscular Hemoglobin Concent 31.6 L Mean Corpuscular Volume 91.4 Mean Platelet Volume 11.3 H Monocytes # 0.9 Monocytes % 9.0 Neutrophils # 6.5 Neutrophils % 68.4 Nucleated Red Blood Cells # 0.0 Nucleated Red Blood Cells % 0.0 Phosphorus Level 6.2 H Platelet Count 210 Potassium Level 4.8 Red Blood Count 3.50 L Red Cell Distribution Width 15.8 H Sodium Level 139 Total Bilirubin 0.0 L Total Protein 6.9 White Blood Count 9.6 Test 07/22/16 11:45 Bedside Glucose 142 Medications Current Medications Acetaminophen (Tylenol Tab) 650 mg Q6H PRN PO PAIN LEVEL 1-3 OR FEVER Last administered on 07/18/16 08:28; Admin Dose 650 MG; Start 07/17/16 at 21:00 Acetaminophen/ Hydrocodone Bitart ([place] (5/325)) 1 tab Q6H PRN PO MODERATE PAIN LEVEL 4-6; Start 07/17/16 at 21:00 Morphine Sulfate (morphine) 2 mg Q4H PRN IV SEVERE PAIN LEVEL 7-10 Last administered on 07/20/16 16:47; Admin Dose 2 MG; Start 07/17/16 at 21:00 Docusate Sodium (Colace) 100 mg Q12H PRN PO CONSTIPATION; Start 07/17/16 at 21: 00 Magnesium Hydroxide (Milk Of Mag) 30 ml DAILY PRN PO CONSTIPATION; Start at 21:00 Sodium Biphosphate/ Sodium Phosphate (Fleet Enema) 133 ml DAILY PRN [place] CONSTIPATION; Start 07/17/16 at 21:00 Heparin Sodium (Porcine) (Heparin (5000 Units/0.5 ml)) 5,000 unit Q12 SC Last administered on 07/22/16 09:51; Admin Dose 5,000 UNIT; Start 07/17/16 at 23:00 Lorazepam (Ativan) 0.5 mg Q6H PRN IV ANXIETY; Start 07/17/16 at 21:00 Hydralazine HCl (Apresoline) 10 mg Q6H PRN IV ELEVATED BLOOD PRESSURE Last administered on 07/21/16 23:47; Admin Dose 10 MG; Start 07/17/16 at 21:00 Nitroglycerin (Nitroglycerin (Sl Tab) 0.4 Mg) 1 tab Q5M PRN SL ANGINA Last administered on 07/19/16 13:57; Admin Dose 1 TAB; Start 07/17/16 at 21:00 Ferrous Sulfate (Ferrous Sulfate (Ec)) 325 mg TID PO Last administered on 00:21; Admin Dose 325 MG; Start 07/17/16 at 21:00 Isoniazid (Isoniazid) 300 mg DAILY PO Last administered on 07/20/16 09:31; Admin Dose 300 MG; Start 07/18/16 at 09:00 Pentoxifylline (Trental) 400 mg DAILY PO Last administered on 07/20/16 09:32; Admin Dose 400 MG; Start 07/18/16 at 09:00 Pyridoxine HCl (Vitamin B6) 50 mg DAILY PO Last administered on 07/20/16 09:32 ; Admin Dose 50 MG; Start 07/18/16 at 09:00 Miscellaneous Information 1 ea NOTE XX ; Start 07/18/16 at 05:30 Glucose (Glutose) 15 gm Q15M PRN PO DECREASED GLUCOSE; Start 07/18/16 at 05:30 Glucose (Glutose) 22.5 gm Q15M PRN PO DECREASED GLUCOSE; Start 07/18/16 at 05: 30 Dextrose (D50w Syringe) 25 ml Q15M PRN IV DECREASED GLUCOSE; Start 07/18/16 at 05:30 Dextrose (D50w Syringe) 50 ml Q15M PRN IV DECREASED GLUCOSE; Start 07/18/16 at 05:30 Glucagon (Glucagen) 1 mg Q15M PRN IM DECREASED GLUCOSE; Start 07/18/16 at 05:30 Glucose (Glutose) 15 gm Q15M PRN BUCCAL DECREASED GLUCOSE; Start 07/18/16 at 05 :30 Diagnostic Test (Pha) (Accucheck) 1 ea 02 XX ; Start 07/18/16 at 08:00 Metoprolol Tartrate (Lopressor) 50 mg BID PO Last administered on 07/22/16 00: 22; Admin Dose 50 MG; Start 07/19/16 at 14:00 Atorvastatin Calcium (Lipitor) 40 mg HS PO Last administered on 07/22/16 00:21 ; Admin Dose 40 MG; Start 07/19/16 at 21:00 Lisinopril (Zestril) 5 mg BID PO Last administered on 07/22/16 00:22; Admin Dose 5 MG; Start 07/19/16 at 21:00 Epoetin Lico (Epogen (Esrd)) 10,000 units TuThSa@17 SC Last administered on 17:36; Admin Dose 10,000 UNITS; Start 07/21/16 at 17:00 Aspirin (Aspirin) 81 mg DAILY PO ; Start 07/21/16 at 09:00 Gentamicin Sulfate (Gentamicin Iv Per Pharmacy) GENTAMICIN PER PHARMACY NOTE XX ; Start 07/20/16 at 14:30 Trimethobenzamide HCl 200 mg 200 mg Q6H PRN IM NAUSEA AND/OR VOMITING Last administered on 07/22/16 09:53; Admin Dose 200 MG; Start 07/20/16 at 21:00 Ondansetron HCl/ Sodium Chloride (Zofran Inj/NS) 54 ml @ 216 mls/hr Q6H PRN IV NAUSEA AND/OR VOMITING Last administered on 07/22/16 06:54; Admin Dose 216 MLS/HR; Start 07/20/16 at 21:00 Nystatin (Nystatin Susp) 5 ml QID PO Last administered on 07/21/16 16:52; Admin Dose 5 ML; Start 07/21/16 at 17:00 Amiodarone HCl (Cordarone) 200 mg DAILY PO ; Start 07/23/16 at 09:00 Metoclopramide HCl (Reglan) 5 mg Q6H PRN IV NAUSEA AND/OR VOMITING Last administered on 07/22/16 11:48; Admin Dose 5 MG; Start 07/22/16 at 11:30 Assessment/Plan Chief Complaint/Hosp Course 1. End-stage renal disease. The patient had hemodialysis. The patient has apparent line infection. Now PermCath removed. The patient will be on line holiday for 1 to 2 days before a temporary catheter is placed. We will monitor for daily dialytic needs. 2. Sepsis, likely line infection. The patient's peripheral blood cultures are positive for gram-negative rods. The patient also developed chills during the course of dialysis highly suggestive of a PermCath line infection sp removal. We will continue to follow up blood cultures. Continue antibiotic therapy and monitor closely. 3. Anemia of chronic disease. Continue to monitor hemoglobin and hematocrit levels. Continue Epogen. 4. Mineral bone disorder. Monitor calcium and phosphorus levels. Continue phosphate binders. 5. Hypertension. Continue current blood pressure regimen. 6. Diabetes. Continue Accu-Cheks and sliding scale. 7. Atrial fibrillation, new onset. Etiology may be related to underlying sepsis. Currently on amiodarone drip. The patient is rate controlled. Continue current medical management. 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 Silveira. Problems: LEAH PALACIOS MD Jul 22, 2016 12:00
--- NOTE | 2016-07-22 14:49 | PN ---
DATE: 07/22/2016 SUBJECTIVE: The patient is awake, alert. She reports that she is nauseous. Denies chest pain or s hortness of breath. ASSESSMENT: 1. PAF in the setting of sepsis, currently in sinus rhythm. Troponin preserved ejection fraction, likely secondary to above. Consider ischemic evaluation, perhaps as an outpatient. 2. Sepsis with end-stage renal disease on hemodialysis. PHYSICAL EXAMINATION: GENERAL: She is in no distress. VITAL SIGNS: Temperature 98.6, pulse 66, blood pressure 177/81, oxygen saturation 94%. LUNGS: Clear to auscultation bilaterally. CARDIAC: Regular rate and rhythm. ABDOMEN: Soft. EXTREMITIES: Reveal no edema. MEDICATIONS: 1. Erythropoietin. 2. Aspirin. 3. Gentamicin 4. Amiodarone 200 mg b.i.d. 5. Lipitor 40. 6. Lisinopril 5. 7. Metoprolol 50 mg b.i.d. 8. Isoniazid at 300 mg daily. 9. Trental. 10. 11. Calcium. 12. Insulin. ASSESSMENT: At this time, I will decrease the amiodarone to 200 mg daily. Given the acute inciting factors would consider discontinuation of amiodarone in the future if no recurrence of atrial fibri llation. Dictated By: LIN BURGESS/FADUMO Conf#: [id number] DID#: [id number]
--- NOTE | 2016-07-22 15:24 | CONS ---
Date/Time of Note Date/Time of Note DATE: 07/22/16 TIME: 15:23 Assessment/Plan Assessment/Plan Chief Complaint/Hosp Course SUBJECTIVE: The patient is alert, feels better, no fevers, nad MICROBIOLOGY: Blood culture growing Serratia, repeat bld cx negative ANTIMICROBIALS: Gentamicin PHYSICAL EXAMINATION: GENERAL: Well-developed, elderly woman who is awake, in no distress. HEENT: Head atraumatic, normocephalic. Sclerae anicteric. Buccal mucosa pink. NECK: Supple. CHEST: Rise symmetrical. Breath sounds clear, diminished to bases. HEART: S1, S2. ABDOMEN: Soft, bowel sounds present. EXTREMITIES: Without cyanosis. ASSESSMENT: 1. Line sepsis with gram-negative aziza bacteremia==> s/p permacath dc'd. 2. End-stage renal disease. 3. Diabetes. 4. Hypertension. 5. Questionable history of tuberculosis versus history of exposure, remains on INH. 6. Anemia 7. Oral candidiasis PLAN: Clinically stable, continue abx, oral Nystatin, continue anti-emetics, HD per renal==> s/p line dc'd DW staff Problems: Consultation Date/Type/Reason Admit Date/Time Jul 17, 2016 at 20:10 Type of Consultation: id Exam/Review of Systems Vital Signs Vitals Vital Signs Date Time Temp Pulse Resp B/P Pulse Ox O2 Delivery O2 Flow Rate FiO2 07/22/16 12:04 99.2 66 18 164/69 98 07/22/16 08:30 Nasal Cannula 2.0 Intake and Output 07/21/16 07/21/16 07/22/16 15:00 23:00 07:00 Intake Total 100 ml 100 ml 174 ml Output Total 0 ml 0 ml Balance 100 ml 100 ml 174 ml Results Result Diagram: 07/22/16 0700 07/22/16 0700 Results 24 hrs Laboratory Tests Test 07/21/16 17:10 07/21/16 21:04 07/22/16 07:00 07/22/16 07:43 Bedside Glucose 80 108 149 Alanine Aminotransferase (ALT/SGPT) 16 Albumin 3.3 Albumin/Globulin Ratio 0.91 Alkaline Phosphatase 182 H Anion Gap 20 H Aspartate Amino Transf (AST/SGOT) 26 Basophils # 0.1 Basophils % 0.6 Blood Urea Nitrogen 40 H Calcium Level 8.2 L Carbon Dioxide Level 23 Chloride Level 101 Creatinine 6.31 H Direct Bilirubin 0.00 Eosinophils # 0.3 Eosinophils % 2.6 Globulin 3.60 H Glucose Level 149 # Hematocrit 32.0 L Hemoglobin 10.1 L Indirect Bilirubin 0.0 Lymphocytes # 1.2 Lymphocytes % 12.4 L Magnesium Level 2.1 Mean Corpuscular Hemoglobin 28.9 L Mean Corpuscular Hemoglobin Concent 31.6 L Mean Corpuscular Volume 91.4 Mean Platelet Volume 11.3 H Monocytes # 0.9 Monocytes % 9.0 Neutrophils # 6.5 Neutrophils % 68.4 Nucleated Red Blood Cells # 0.0 Nucleated Red Blood Cells % 0.0 Phosphorus Level 6.2 H Platelet Count 210 Potassium Level 4.8 Red Blood Count 3.50 L Red Cell Distribution Width 15.8 H Sodium Level 139 Total Bilirubin 0.0 L Total Protein 6.9 White Blood Count 9.6 Test 07/22/16 11:45 Bedside Glucose 142 Medications Medications Current Medications Acetaminophen (Tylenol Tab) 650 mg Q6H PRN PO PAIN LEVEL 1-3 OR FEVER Last administered on 07/18/16 08:28; Admin Dose 650 MG; Start 07/17/16 at 21:00 Acetaminophen/ Hydrocodone Bitart ([place] (5/325)) 1 tab Q6H PRN PO MODERATE PAIN LEVEL 4-6; Start 07/17/16 at 21:00 Morphine Sulfate (morphine) 2 mg Q4H PRN IV SEVERE PAIN LEVEL 7-10 Last administered on 07/20/16 16:47; Admin Dose 2 MG; Start 07/17/16 at 21:00 Docusate Sodium (Colace) 100 mg Q12H PRN PO CONSTIPATION; Start 07/17/16 at 21: 00 Magnesium Hydroxide (Milk Of Mag) 30 ml DAILY PRN PO CONSTIPATION; Start at 21:00 Sodium Biphosphate/ Sodium Phosphate (Fleet Enema) 133 ml DAILY PRN [place] CONSTIPATION; Start 07/17/16 at 21:00 Heparin Sodium (Porcine) (Heparin (5000 Units/0.5 ml)) 5,000 unit Q12 SC Last administered on 07/22/16 09:51; Admin Dose 5,000 UNIT; Start 07/17/16 at 23:00 Lorazepam (Ativan) 0.5 mg Q6H PRN IV ANXIETY; Start 07/17/16 at 21:00 Hydralazine HCl (Apresoline) 10 mg Q6H PRN IV ELEVATED BLOOD PRESSURE Last administered on 07/21/16 23:47; Admin Dose 10 MG; Start 07/17/16 at 21:00 Nitroglycerin (Nitroglycerin (Sl Tab) 0.4 Mg) 1 tab Q5M PRN SL ANGINA Last administered on 07/19/16 13:57; Admin Dose 1 TAB; Start 07/17/16 at 21:00 Ferrous Sulfate (Ferrous Sulfate (Ec)) 325 mg TID PO Last administered on 00:21; Admin Dose 325 MG; Start 07/17/16 at 21:00 Isoniazid (Isoniazid) 300 mg DAILY PO Last administered on 07/20/16 09:31; Admin Dose 300 MG; Start 07/18/16 at 09:00 Pentoxifylline (Trental) 400 mg DAILY PO Last administered on 07/20/16 09:32; Admin Dose 400 MG; Start 07/18/16 at 09:00 Pyridoxine HCl (Vitamin B6) 50 mg DAILY PO Last administered on 07/20/16 09:32 ; Admin Dose 50 MG; Start 07/18/16 at 09:00 Miscellaneous Information 1 ea NOTE XX ; Start 07/18/16 at 05:30 Glucose (Glutose) 15 gm Q15M PRN PO DECREASED GLUCOSE; Start 07/18/16 at 05:30 Glucose (Glutose) 22.5 gm Q15M PRN PO DECREASED GLUCOSE; Start 07/18/16 at 05: 30 Dextrose (D50w Syringe) 25 ml Q15M PRN IV DECREASED GLUCOSE; Start 07/18/16 at 05:30 Dextrose (D50w Syringe) 50 ml Q15M PRN IV DECREASED GLUCOSE; Start 07/18/16 at 05:30 Glucagon (Glucagen) 1 mg Q15M PRN IM DECREASED GLUCOSE; Start 07/18/16 at 05:30 Glucose (Glutose) 15 gm Q15M PRN BUCCAL DECREASED GLUCOSE; Start 07/18/16 at 05 :30 Diagnostic Test (Pha) (Accucheck) 1 ea 02 XX ; Start 07/18/16 at 08:00 Metoprolol Tartrate (Lopressor) 50 mg BID PO Last administered on 07/22/16 00: 22; Admin Dose 50 MG; Start 07/19/16 at 14:00 Atorvastatin Calcium (Lipitor) 40 mg HS PO Last administered on 07/22/16 00:21 ; Admin Dose 40 MG; Start 07/19/16 at 21:00 Lisinopril (Zestril) 5 mg BID PO Last administered on 07/22/16 00:22; Admin Dose 5 MG; Start 07/19/16 at 21:00 Epoetin Lico (Epogen (Esrd)) 10,000 units TuThSa@17 SC Last administered on 17:36; Admin Dose 10,000 UNITS; Start 07/21/16 at 17:00 Aspirin (Aspirin) 81 mg DAILY PO ; Start 07/21/16 at 09:00 Gentamicin Sulfate (Gentamicin Iv Per Pharmacy) GENTAMICIN PER PHARMACY NOTE XX ; Start 07/20/16 at 14:30 Trimethobenzamide HCl 200 mg 200 mg Q6H PRN IM NAUSEA AND/OR VOMITING Last administered on 07/22/16 09:53; Admin Dose 200 MG; Start 07/20/16 at 21:00 Ondansetron HCl/ Sodium Chloride (Zofran Inj/NS) 54 ml @ 216 mls/hr Q6H PRN IV NAUSEA AND/OR VOMITING Last administered on 07/22/16 06:54; Admin Dose 216 MLS/HR; Start 07/20/16 at 21:00 Nystatin (Nystatin Susp) 5 ml QID PO Last administered on 07/21/16 16:52; Admin Dose 5 ML; Start 07/21/16 at 17:00 Amiodarone HCl (Cordarone) 200 mg DAILY PO ; Start 07/23/16 at 09:00 Metoclopramide HCl (Reglan) 5 mg Q6H PRN IV NAUSEA AND/OR VOMITING Last administered on 07/22/16 11:48; Admin Dose 5 MG; Start 07/22/16 at 11:30 TAI MENESES NP Jul 22, 2016 15:24
[2016-07-22] MEDS: hydrALAzine 20 MG INJ IV PRN (19:47)
[2016-07-23] VITALS (26 sets, daily range): BP systolic 107–205; BP diastolic 52–95; PULSE 57–73; RESP 9–21
[2016-07-23] MEDS: ACCUCHECK 2 AM XX SCH (02:00)
[2016-07-23] MEDS ORDERED: ZOLPIDEM 5 MG TAB PO PRN (02:10)
[2016-07-23] MEDS: LEVOTHYROXINE 125 MCG TAB PO SCH (06:01)
[2016-07-23] MEDS: Insulin NOVOLOG SS MILD Algorithm (SS with meals and bedtime) SC SCH ×4 (07:30→21:00)
[2016-07-23] MEDS: LISINOPRIL 5 MG TAB PO SCH (08:19)
[2016-07-23] MEDS: CALCIUM ACETATE 667 MG CAP PO SCH ×4 (08:19→21:26)
[2016-07-23] MEDS: METOPROLOL 50 MG TAB PO SCH ×2 (08:19→21:27)
[2016-07-23] MEDS: PYRIDOXINE 50 MG TAB PO SCH (08:19)
[2016-07-23] MEDS: FERROUS SULFATE (EC) 325 MG TAB PO SCH (08:20)
[2016-07-23] MEDS: ISONIAZID 300 MG TAB PO SCH (08:20)
[2016-07-23] MEDS: NYSTATIN SUSP 5 ML CUP PO SCH ×4 (08:20→21:26)
[2016-07-23] MEDS: PENTOXIFYLLINE (SR) 400 MG TAB PO SCH (08:20)
[2016-07-23] MEDS: ASPIRIN 81 MG TAB PO SCH (08:20)
[2016-07-23] MEDS: AMIODARONE 200 MG TAB PO SCH (08:20)
[2016-07-23] MEDS: HEPARIN 5,000 UNIT/0.5 ML SYG SC SCH (08:21)
[2016-07-23 10:30] LABS: ADD SCAN DIFF NO
[2016-07-23 10:33] LABS: BASOPHILS % 0.4 % (0.0-2.0); EOSINOPHILS # 0.4 10^3/ul (0.0-0.5); HEMATOCRIT 30.5 % (37.0-47.0); HEMOGLOBIN 9.6 g/dl (12.0-16.0); LYMPHOCYTES # 1.1 10^3/ul (0.8-2.9); LYMPHOCYTES % 11.8 % (15.0-51.0); MEAN CORPUSCULAR HEMOGLOBIN 28.7 pg (29.0-33.0); MEAN CORPUSCULAR HGB CONC 31.5 g/dl (32.0-37.0); MEAN PLATELET VOLUME 11.4 fl (7.4-10.4); MONOCYTES % 10.5 % (0.0-11.0); NEUTROPHIL # 6.6 10^3/ul (1.6-7.5); NEUTROPHILS % 68.7 % (39.0-77.0); PLATELET COUNT 201 10^3/UL (140-415); RED BLOOD COUNT 3.35 10^6/ul (4.20-5.40); RED CELL DISTRIBUTION WIDTH 15.7 % (11.5-14.5); WHITE BLOOD COUNT 9.5 10^3/ul (4.8-10.8)
[2016-07-23] MEDS: NIFEdipine (XL) 60 MG TAB PO SCH (10:40)
[2016-07-23 10:59] LABS: POTASSIUM 4.7 mmol/L (3.5-5.1)
[2016-07-23 11:02] LABS: CREATININE 6.91 mg/dl (0.44-1.00)
[2016-07-23] MEDS: hydrALAzine 20 MG INJ IV PRN (11:35)
[2016-07-23] MEDS ORDERED: HEPARIN 1000 UNITS/ML 10 ML INJ ONE (11:39)
--- NOTE | 2016-07-23 13:13 | PN ---
DATE: 07/23/2016 SUBJECTIVE: The patient is stable, noted to be hypertensive this morning. No other acute events no real. No hemoptysis, hematemesis, or hematochezia. The patient no longer is having fevers or chills . OBJECTIVE: VITAL SIGNS: Blood pressure is 205/66, respirations 20, pulse 71, temperature 98.6. HEENT: Head is normocephalic. NECK: Supple. HEART: Regular rate. LUNGS: Show diminished breath sounds at the base. ABDOMEN: Soft, nontender to palpation. No rebound or guarding. EXTREMITIES: Negative for clubbing, cyanosis, no edema. DERMATOLOGIC: No rashes. MUSCULOSKELETAL: No joint effusions. NEUROLOGIC: No change in exam. MEDICATIONS: The patient's medications have been reviewed. LABORATORY DATA: Shows sodium 139, potassium 4.9, chloride 101, BUN 40, creatinine 6.31. The patie nt's magnesium 2.1, phosphorus 6.2, calcium 8.2. White count 9.6, hemoglobin 10.1, hematocrit 32.0, platelet count is 210. ASSESSMENT AND PLAN: 1. End-stage renal disease. The patient's last hemodialysis was . The patient is currentl y on a line holiday due to line infection. Plan at this point is to have a [place] catheter placed today for hemodialysis. The patient will be dialyzed for 3 hours on a 3K bath, calcium 2.5. 2. Sepsis secondary to line infection. The patient's PermCath was discontinued. Will have a [place] on catheter placed today. Repeat blood cultures have been negative. Continue current IV antibiotic s. Cultures have been reviewed. 3. Hypertensive urgency in part due to increased intravascular volume. We will continue current bl ood pressure regimen. Will add Procardia-XL 60 mg p.o. x1. Will anticipate ultrafiltration with di alysis. Monitor closely. 4. Anemia of chronic disease. Continue to monitor H and H levels. Will give Epogen as needed. 5. Mineral bone disorder. Continue to monitor calcium and phosphorus levels. Continue phosphate b inders. 6. Hypertension. Continue current blood pressure regimen. 7. Diabetes, continue Accu-Cheks and insulin sliding scale. 8. Atrial fibrillation, new onset. The patient is currently rate controlled. Continue current med ical management. Dictated By: LY MENDEZ/FADUMO Conf#: [id number] DID#: [id number]
--- NOTE | 2016-07-23 13:14 | OPR ---
Date/Time of Note Date/Time of Note DATE: 07/23/16 TIME: 13:13 Operative Report Free Text/Dictation DATE OF OPERATION: 07/23/2016 SURGEON: Jos Heard MD PREOPERATIVE DIAGNOSIS: ESRD POSTOPERATIVE DIAGNOSIS: same ANESTHESIA: Local BLOOD LOSS: minimal COMPLICATIONS: None. ACCESS: Right common femoral vein INDICATIONS: This is a 60 year-old female with ESRD requiring dialysis. Patient and family have been informed of the alternatives, risks, and benefits. Risks including but not limited to bleeding, thrombosis, embolization, myocardial infarction, , device malfunction, infection, pneumothorax, nephrotoxicity and patient has agreed to proceed. PROCEDURE: 1. Ultrasound guided access of right common femoral vein 2. Right common femoral vein non-tunneled hemodialysis catheter placement DESCRIPTION: The patient was in supine position in her bed. Bed was placed in slight Trendelenburg position and the groin was prepped and draped with sterile technique. The central catheter was flushed with heparin to ensure function of each port. Landmarks were identified and the skin entry site was chosen using ultrasound guidance. The skin And subcutaneous tissue were anesthetized with 1% lidocaine. The vein was then located with a needle with a 10 mL syringe using ultrasound guidance. The needle was then directed towards the vein and was entered. The needle position was secured and syringe was removed. The hub was occluded to prevent venous air embolus. The guidewire was passed easily and the needle was removed while the wire was held in place. A small incision was then made at the point of the wire entry. The dilator was placed over the wire and the tract gently dilated. The catheter was fed over the wire, ensuring the wire exited from the port before advancing the catheter. The catheter was inserted to the desired depth and the wire removed. Each port was aspirated to ensure adequate blood flow and then flushed with heparinized saline solution. The catheter was secured in place with a 2-0 nylon suture and a sterile dressing was applied. The patient tolerated the procedure well and was in stable condition. All instrument, sponge and needle counts were correct 2. JOS HEARD MD Jul 23, 2016 13:14
--- NOTE | 2016-07-23 13:27 | CONS ---
Date/Time of Note Date/Time of Note DATE: 07/23/16 TIME: 13:26 Assessment/Plan Assessment/Plan Chief Complaint/Hosp Course SUBJECTIVE: The patient is alert, feels better, no fevers, nad MICROBIOLOGY: Blood culture growing Serratia, repeat bld cx negative ANTIMICROBIALS: Gentamicin PHYSICAL EXAMINATION: GENERAL: Well-developed, elderly woman who is awake, in no distress. HEENT: Head atraumatic, normocephalic. Sclerae anicteric. Buccal mucosa pink. NECK: Supple. CHEST: Rise symmetrical. Breath sounds clear, diminished to bases. HEART: S1, S2. ABDOMEN: Soft, bowel sounds present. EXTREMITIES: Without cyanosis. ASSESSMENT: 1. Line sepsis with gram-negative aziza bacteremia==> s/p permacath dc'd. 2. End-stage renal disease. 3. Diabetes. 4. Hypertension. 5. Questionable history of tuberculosis versus history of exposure, remains on INH. 6. Anemia 7. Oral candidiasis PLAN: Clinically stable, continue abx, oral Nystatin, pending junior placement , anticipate dc on Gentamicin post HD for 10 more days DW staff Problems: Consultation Date/Type/Reason Admit Date/Time Jul 17, 2016 at 20:10 Type of Consultation: id Exam/Review of Systems Vital Signs Vitals Vital Signs Date Time Temp Pulse Resp B/P Pulse Ox O2 Delivery O2 Flow Rate FiO2 07/23/16 13:12 68 18 150/68 94 Nasal Cannula 07/23/16 12:02 98.2 07/22/16 23:00 2.0 Intake and Output 07/22/16 07/22/16 07/23/16 15:00 23:00 07:00 Intake Total 500 ml 240 ml Balance 500 ml 240 ml Results Result Diagram: 07/23/16 0940 07/23/16 0940 Results 24 hrs Laboratory Tests Test 07/22/16 17:27 07/22/16 21:50 07/23/16 08:16 07/23/16 09:40 Bedside Glucose 150 128 122 Anion Gap 18 H Basophils # 0.0 Basophils % 0.4 Blood Urea Nitrogen 44 H Calcium Level 8.0 L Carbon Dioxide Level 24 Chloride Level 101 Creatinine 6.91 H Eosinophils # 0.4 Eosinophils % 4.0 Glucose Level 169 Hematocrit 30.5 L Hemoglobin 9.6 L Lymphocytes # 1.1 Lymphocytes % 11.8 L Mean Corpuscular Hemoglobin 28.7 L Mean Corpuscular Hemoglobin Concent 31.5 L Mean Corpuscular Volume 91.0 Mean Platelet Volume 11.4 H Monocytes # 1.0 H Monocytes % 10.5 Neutrophils # 6.6 Neutrophils % 68.7 Nucleated Red Blood Cells # 0.0 Nucleated Red Blood Cells % 0.0 Platelet Count 201 Potassium Level 4.7 Red Blood Count 3.35 L Red Cell Distribution Width 15.7 H Sodium Level 138 White Blood Count 9.5 Test 07/23/16 11:34 Bedside Glucose 211 Medications Medications Current Medications Acetaminophen (Tylenol Tab) 650 mg Q6H PRN PO PAIN LEVEL 1-3 OR FEVER Last administered on 07/18/16 08:28; Admin Dose 650 MG; Start 07/17/16 at 21:00 Acetaminophen/ Hydrocodone Bitart ([place] (5/325)) 1 tab Q6H PRN PO MODERATE PAIN LEVEL 4-6; Start 07/17/16 at 21:00 Morphine Sulfate (morphine) 2 mg Q4H PRN IV SEVERE PAIN LEVEL 7-10 Last administered on 07/20/16 16:47; Admin Dose 2 MG; Start 07/17/16 at 21:00 Docusate Sodium (Colace) 100 mg Q12H PRN PO CONSTIPATION; Start 07/17/16 at 21: 00 Magnesium Hydroxide (Milk Of Mag) 30 ml DAILY PRN PO CONSTIPATION; Start at 21:00 Sodium Biphosphate/ Sodium Phosphate (Fleet Enema) 133 ml DAILY PRN ID CONSTIPATION; Start 07/17/16 at 21:00 Heparin Sodium (Porcine) (Heparin (5000 Units/0.5 ml)) 5,000 unit Q12 SC Last administered on 07/23/16 08:21; Admin Dose 5,000 UNIT; Start 07/17/16 at 23:00 Nitroglycerin (Nitroglycerin (Sl Tab) 0.4 Mg) 1 tab Q5M PRN SL ANGINA Last administered on 07/19/16 13:57; Admin Dose 1 TAB; Start 07/17/16 at 21:00 Isoniazid (Isoniazid) 300 mg DAILY PO Last administered on 07/23/16 08:20; Admin Dose 300 MG; Start 07/18/16 at 09:00 Pentoxifylline (Trental) 400 mg DAILY PO Last administered on 07/23/16 08:20; Admin Dose 400 MG; Start 07/18/16 at 09:00 Pyridoxine HCl (Vitamin B6) 50 mg DAILY PO Last administered on 07/23/16 08:19 ; Admin Dose 50 MG; Start 07/18/16 at 09:00 Miscellaneous Information 1 ea NOTE XX ; Start 07/18/16 at 05:30 Glucose (Glutose) 15 gm Q15M PRN PO DECREASED GLUCOSE; Start 07/18/16 at 05:30 Glucose (Glutose) 22.5 gm Q15M PRN PO DECREASED GLUCOSE; Start 07/18/16 at 05: 30 Dextrose (D50w Syringe) 25 ml Q15M PRN IV DECREASED GLUCOSE; Start 07/18/16 at 05:30 Dextrose (D50w Syringe) 50 ml Q15M PRN IV DECREASED GLUCOSE; Start 07/18/16 at 05:30 Glucagon (Glucagen) 1 mg Q15M PRN IM DECREASED GLUCOSE; Start 07/18/16 at 05:30 Glucose (Glutose) 15 gm Q15M PRN BUCCAL DECREASED GLUCOSE; Start 07/18/16 at 05 :30 Diagnostic Test (Pha) (Accucheck) 1 ea 02 XX ; Start 07/18/16 at 08:00 Metoprolol Tartrate (Lopressor) 50 mg BID PO Last administered on 07/23/16 08: 19; Admin Dose 50 MG; Start 07/19/16 at 14:00 Atorvastatin Calcium (Lipitor) 40 mg HS PO Last administered on 07/22/16 21:55 ; Admin Dose 40 MG; Start 07/19/16 at 21:00 Epoetin Lico (Epogen (Esrd)) 10,000 units TuThSa@17 SC Last administered on 17:36; Admin Dose 10,000 UNITS; Start 07/21/16 at 17:00 Aspirin (Aspirin) 81 mg DAILY PO Last administered on 07/23/16 08:20; Admin Dose 81 MG; Start 07/21/16 at 09:00 Gentamicin Sulfate (Gentamicin Iv Per Pharmacy) GENTAMICIN PER PHARMACY NOTE XX ; Start 07/20/16 at 14:30 Trimethobenzamide HCl (Tigan) 200 mg Q6H PRN IM NAUSEA AND/OR VOMITING Last administered on 07/22/16 09:53; Admin Dose 200 MG; Start 07/20/16 at 21:00 Nystatin (Nystatin Susp) 5 ml QID PO Last administered on 07/23/16 08:20; Admin Dose 5 ML; Start 07/21/16 at 17:00 Amiodarone HCl (Cordarone) 200 mg DAILY PO Last administered on 07/23/16 08:20 ; Admin Dose 200 MG; Start 07/23/16 at 09:00 Metoclopramide HCl (Reglan) 5 mg Q4 PRN IV NAUSEA AND/OR VOMITING; Start at 17:00 Zolpidem Tartrate (Ambien) 2.5 mg ONCE PRN PO INSOMNIA Last administered on 02:26; Admin Dose 2.5 MG; Start 07/23/16 at 02:10; Stop 07/24/16 at 02: 09 Nifedipine (Procardia Xl) 60 mg DAILY PO Last administered on 07/23/16 10:40; Admin Dose 60 MG; Start 07/23/16 at 09:30 Lisinopril (Zestril) 20 mg BID PO ; Start 07/23/16 at 21:00 Hydralazine HCl (Apresoline) 10 mg Q2H PRN IV ELEVATED BLOOD PRESSURE; Start at 13:00 Pantoprazole (Protonix Tab) 40 mg DAILY@06 PO ; Start 07/24/16 at 06:00 Senna/Docusate Sodium (Senokot-S) 2 tab HS PO ; Start 07/23/16 at 21:00 Insulin Glargine (Lantus) 5 unit HS SC ; Start 07/23/16 at 21:00 TAI MENESES NP Jul 23, 2016 13:27
--- NOTE | 2016-07-23 13:45 | PN ---
Date/Time of Note Date/Time of Note DATE: 07/23/16 TIME: 13:38 Assessment/Plan VTE Prophylaxis VTE Prophylaxis Intervention: contraindicated, LMWH Lines/Catheters IV Catheter Type (from Nrs): [place] Lock Urinary Cath still in place: No Assessment/Plan Chief Complaint/Hosp Course A/P 1) Sepsis/ line sepsis/ serratia. sp access removal. stable, cont gent w HD. 2) ESRD/ hd; groin catheter for now. permacath vs avf at some point. 3) Dm 8.0 4) Htn/ dyslipidemia- low hdl 5) Hypothyroidism 6) Anemia; stable 7) P A Fib; on amiodarone. 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 for hd access today. Exam/Review of Systems Vital Signs Vitals Vital Signs Date Time Temp Pulse Resp B/P Pulse Ox O2 Delivery O2 Flow Rate FiO2 07/23/16 13:12 68 18 150/68 94 Nasal Cannula 07/23/16 12:02 98.2 07/22/16 23:00 2.0 Intake and Output 07/22/16 07/22/16 07/23/16 15:00 23:00 07:00 Intake Total 500 ml 240 ml Balance 500 ml 240 ml Exam Respiratory: clear to auscultation Cardiovascular: regular rate and rhythm Gastrointestinal: non-tender, soft Results Result Diagram: 07/23/16 0940 07/23/16 0940 Results 24 hrs Laboratory Tests Test 07/22/16 17:27 07/22/16 21:50 07/23/16 08:16 07/23/16 09:40 Bedside Glucose 150 128 122 Anion Gap 18 H Basophils # 0.0 Basophils % 0.4 Blood Urea Nitrogen 44 H Calcium Level 8.0 L Carbon Dioxide Level 24 Chloride Level 101 Creatinine 6.91 H Eosinophils # 0.4 Eosinophils % 4.0 Glucose Level 169 Hematocrit 30.5 L Hemoglobin 9.6 L Lymphocytes # 1.1 Lymphocytes % 11.8 L Mean Corpuscular Hemoglobin 28.7 L Mean Corpuscular Hemoglobin Concent 31.5 L Mean Corpuscular Volume 91.0 Mean Platelet Volume 11.4 H Monocytes # 1.0 H Monocytes % 10.5 Neutrophils # 6.6 Neutrophils % 68.7 Nucleated Red Blood Cells # 0.0 Nucleated Red Blood Cells % 0.0 Platelet Count 201 Potassium Level 4.7 Red Blood Count 3.35 L Red Cell Distribution Width 15.7 H Sodium Level 138 White Blood Count 9.5 Test 07/23/16 11:34 Bedside Glucose 211 Medications Medications Current Medications Acetaminophen (Tylenol Tab) 650 mg Q6H PRN PO PAIN LEVEL 1-3 OR FEVER Last administered on 07/18/16 08:28; Admin Dose 650 MG; Start 07/17/16 at 21:00 Acetaminophen/ Hydrocodone Bitart ([place] (5/325)) 1 tab Q6H PRN PO MODERATE PAIN LEVEL 4-6; Start 07/17/16 at 21:00 Morphine Sulfate (morphine) 2 mg Q4H PRN IV SEVERE PAIN LEVEL 7-10 Last administered on 07/20/16 16:47; Admin Dose 2 MG; Start 07/17/16 at 21:00 Docusate Sodium (Colace) 100 mg Q12H PRN PO CONSTIPATION; Start 07/17/16 at 21: 00 Magnesium Hydroxide (Milk Of Mag) 30 ml DAILY PRN PO CONSTIPATION; Start at 21:00 Sodium Biphosphate/ Sodium Phosphate (Fleet Enema) 133 ml DAILY PRN ME CONSTIPATION; Start 07/17/16 at 21:00 Heparin Sodium (Porcine) (Heparin (5000 Units/0.5 ml)) 5,000 unit Q12 SC Last administered on 07/23/16 08:21; Admin Dose 5,000 UNIT; Start 07/17/16 at 23:00 Nitroglycerin (Nitroglycerin (Sl Tab) 0.4 Mg) 1 tab Q5M PRN SL ANGINA Last administered on 07/19/16 13:57; Admin Dose 1 TAB; Start 07/17/16 at 21:00 Isoniazid (Isoniazid) 300 mg DAILY PO Last administered on 07/23/16 08:20; Admin Dose 300 MG; Start 07/18/16 at 09:00 Pentoxifylline (Trental) 400 mg DAILY PO Last administered on 07/23/16 08:20; Admin Dose 400 MG; Start 07/18/16 at 09:00 Pyridoxine HCl (Vitamin B6) 50 mg DAILY PO Last administered on 07/23/16 08:19 ; Admin Dose 50 MG; Start 07/18/16 at 09:00 Miscellaneous Information 1 ea NOTE XX ; Start 07/18/16 at 05:30 Glucose (Glutose) 15 gm Q15M PRN PO DECREASED GLUCOSE; Start 07/18/16 at 05:30 Glucose (Glutose) 22.5 gm Q15M PRN PO DECREASED GLUCOSE; Start 07/18/16 at 05: 30 Dextrose (D50w Syringe) 25 ml Q15M PRN IV DECREASED GLUCOSE; Start 07/18/16 at 05:30 Dextrose (D50w Syringe) 50 ml Q15M PRN IV DECREASED GLUCOSE; Start 07/18/16 at 05:30 Glucagon (Glucagen) 1 mg Q15M PRN IM DECREASED GLUCOSE; Start 07/18/16 at 05:30 Glucose (Glutose) 15 gm Q15M PRN BUCCAL DECREASED GLUCOSE; Start 07/18/16 at 05 :30 Diagnostic Test (Pha) (Accucheck) 1 ea 02 XX ; Start 07/18/16 at 08:00 Metoprolol Tartrate (Lopressor) 50 mg BID PO Last administered on 07/23/16 08: 19; Admin Dose 50 MG; Start 07/19/16 at 14:00 Atorvastatin Calcium (Lipitor) 40 mg HS PO Last administered on 07/22/16 21:55 ; Admin Dose 40 MG; Start 07/19/16 at 21:00 Epoetin Lico (Epogen (Esrd)) 10,000 units TuThSa@17 SC Last administered on 17:36; Admin Dose 10,000 UNITS; Start 07/21/16 at 17:00 Aspirin (Aspirin) 81 mg DAILY PO Last administered on 07/23/16 08:20; Admin Dose 81 MG; Start 07/21/16 at 09:00 Gentamicin Sulfate (Gentamicin Iv Per Pharmacy) GENTAMICIN PER PHARMACY NOTE XX ; Start 07/20/16 at 14:30 Trimethobenzamide HCl (Tigan) 200 mg Q6H PRN IM NAUSEA AND/OR VOMITING Last administered on 07/22/16 09:53; Admin Dose 200 MG; Start 07/20/16 at 21:00 Nystatin (Nystatin Susp) 5 ml QID PO Last administered on 07/23/16 08:20; Admin Dose 5 ML; Start 07/21/16 at 17:00 Amiodarone HCl (Cordarone) 200 mg DAILY PO Last administered on 07/23/16 08:20 ; Admin Dose 200 MG; Start 07/23/16 at 09:00 Metoclopramide HCl (Reglan) 5 mg Q4 PRN IV NAUSEA AND/OR VOMITING; Start at 17:00 Zolpidem Tartrate (Ambien) 2.5 mg ONCE PRN PO INSOMNIA Last administered on 02:26; Admin Dose 2.5 MG; Start 07/23/16 at 02:10; Stop 07/24/16 at 02: 09 Nifedipine (Procardia Xl) 60 mg DAILY PO Last administered on 07/23/16 10:40; Admin Dose 60 MG; Start 07/23/16 at 09:30 Lisinopril (Zestril) 20 mg BID PO ; Start 07/23/16 at 21:00 Hydralazine HCl (Apresoline) 10 mg Q2H PRN IV ELEVATED BLOOD PRESSURE; Start at 13:00 Pantoprazole (Protonix Tab) 40 mg DAILY@06 PO ; Start 07/24/16 at 06:00 Senna/Docusate Sodium (Senokot-S) 2 tab HS PO ; Start 07/23/16 at 21:00 Insulin Glargine (Lantus) 5 unit HS SC ; Start 07/23/16 at 21:00 ELINA JOHNSON MD Jul 23, 2016 13:45
[2016-07-23] MEDS ORDERED: REGADENOSON 0.4 MG/5 ML SYG ONE (14:55)
--- NOTE | 2016-07-23 16:56 | RADRPT ---
PROCEDURE: Lexiscan myocardial perfusion study CLINICAL INDICATION: 60 -year-old patient complaining of chest pain. TECHNIQUE: Lexiscan 0.4 mg intravenously separate acquisition gated myocardial perfusion SPECT usi ng Tc 99m Myoview 30.1 mCi intravenously at stress and Tc-99m Myoview, 10.3 mCi intravenously at res t was performed using the rest/stress sequence. Poststress Myoview SPECT images were obtained in th e supine position. COMPARISON: No prior studies. FINDINGS: Perfusion images reveal no evidence of perfusion defects. Lexiscan post stress gated SPECT images demonstrate no wall motion abnormalities. IMPRESSION: 1. No evidence of perfusion defects. 2. No wall motion abnormalities. 3. The left ventricle ejection fraction at stress is 54%. A call report was made to Dr. Silveira at 04:54 p.m. on July 23, 2016. RPTAT: HH .Anila Hirsch MD, Date Time Electronically viewed and signed by .Anila Hirsch MD, MD on 07/23/2016 16:55 .L/
[2016-07-23] MEDS: METOCLOPRAMIDE 10 MG INJ IV PRN ×2 (17:22→21:38)
[2016-07-23 17:32] LABS: INR 0.99; PROTIME 13.1 Sec (12.2-14.2)
[2016-07-23 17:33] LABS: PARTIAL THROMBOPLASTIN TIME 41.5 Sec (25.0-35.0)
--- NOTE | 2016-07-23 19:28 | RADRPT ---
PROCEDURE: Bilateral upper extremity arterial ultrasound CLINICAL INDICATION: Bilateral arm pain TECHNIQUE: Multiple color and spectral Doppler images of the bilateral upper extremity arterial sy stem were obtained. Images were reviewed on a high-resolution PACS workstation. COMPARISON: None FINDINGS: The velocities and waveforms are within normal limits. Triphasic wave forms are seen throughout the right upper extremity arterial system. No hemodynamically significant stenosis or occlusion is see n. Velocities: Centimeters per second. Right Subclavian : 306.6 Axillary : 163.8 Brachial : 138.6 Radial artery: 75.4 Ulnar artery: 83.2 Left Subclavian : 203 Axillary : 151.5 Brachial : 154.3 Radial artery, 111.7 Ulnar artery: 106.1 IMPRESSION: No hemodynamically significant stenosis. RPTAT: HPNM Physician Mary Date Time Electronically viewed and signed by Physician Mary on 07/23/2016 19:28 /
--- NOTE | 2016-07-23 19:38 | CONS ---
Date/Time of Note Date/Time of Note DATE: 07/23/16 TIME: 19:36 Assessment/Plan Assessment/Plan Additional Assessment/Plan New onset atrial fibrillation with rapid ventricular rates, currently sinus rhythm Elevated troponin Preserved ejection fraction Sepsis with gram-negative bacteremia Acute blood loss anemia End-stage renal disease on hemodialysis Diabetes -Patient status post nuclear cardiac perfusion study today with no evidence of ischemia. Elevated troponin likely secondary to sepsis and atrial fibrillation with rapid ventricular rates. We will continue amiodarone to maintain in sinus rhythm. Continue aspirin, statin therapy and beta-erin. Consultation Date/Type/Reason Admit Date/Time Jul 17, 2016 at 20:10 Type of Consultation: cv 24 HR Interval Summary Free Text/Dictation Patient denies chest pain, shortness of breath or palpitations Exam/Review of Systems Vital Signs Vitals Vital Signs Date Time Temp Pulse Resp B/P Pulse Ox O2 Delivery O2 Flow Rate FiO2 07/23/16 17:15 98.3 57 20 107/52 90 07/23/16 13:12 Nasal Cannula 07/22/16 23:00 2.0 Intake and Output 07/22/16 07/22/16 07/23/16 15:00 23:00 07:00 Intake Total 500 ml 240 ml Balance 500 ml 240 ml Exam No apparent distress Constitutional: alert, oriented Head: normocephalic Neck: supple Respiratory: other (Coarse breath sounds bilaterally, no wheezing) Cardiovascular: other (S1-S2 heard), regular rate and rhythm Gastrointestinal: bowel sounds, non-tender, other (No guarding), soft Extremities: edema (Trace), other (No cyanosis) Results Result Diagram: 07/23/16 0940 07/23/16 0940 Results 24 hrs Laboratory Tests Test 07/22/16 21:50 07/23/16 08:16 07/23/16 09:40 07/23/16 11:34 Bedside Glucose 128 122 211 Anion Gap 18 H Basophils # 0.0 Basophils % 0.4 Blood Urea Nitrogen 44 H Calcium Level 8.0 L Carbon Dioxide Level 24 Chloride Level 101 Creatinine 6.91 H Eosinophils # 0.4 Eosinophils % 4.0 Glucose Level 169 Hematocrit 30.5 L Hemoglobin 9.6 L Lymphocytes # 1.1 Lymphocytes % 11.8 L Mean Corpuscular Hemoglobin 28.7 L Mean Corpuscular Hemoglobin Concent 31.5 L Mean Corpuscular Volume 91.0 Mean Platelet Volume 11.4 H Monocytes # 1.0 H Monocytes % 10.5 Neutrophils # 6.6 Neutrophils % 68.7 Nucleated Red Blood Cells # 0.0 Nucleated Red Blood Cells % 0.0 Platelet Count 201 Potassium Level 4.7 Red Blood Count 3.35 L Red Cell Distribution Width 15.7 H Sodium Level 138 White Blood Count 9.5 Test 07/23/16 17:04 07/23/16 17:06 Activated Partial Thromboplast Time 41.5 H INR International Normalized Ratio 0.99 Prothrombin Time 13.1 Prothrombin Time Ratio 1.0 Bedside Glucose 168 Medications Medications Current Medications Acetaminophen (Tylenol Tab) 650 mg Q6H PRN PO PAIN LEVEL 1-3 OR FEVER Last administered on 07/18/16 08:28; Admin Dose 650 MG; Start 07/17/16 at 21:00 Acetaminophen/ Hydrocodone Bitart ([place] (5/325)) 1 tab Q6H PRN PO MODERATE PAIN LEVEL 4-6; Start 07/17/16 at 21:00 Morphine Sulfate (morphine) 2 mg Q4H PRN IV SEVERE PAIN LEVEL 7-10 Last administered on 07/20/16 16:47; Admin Dose 2 MG; Start 07/17/16 at 21:00 Docusate Sodium (Colace) 100 mg Q12H PRN PO CONSTIPATION; Start 07/17/16 at 21: 00 Magnesium Hydroxide (Milk Of Mag) 30 ml DAILY PRN PO CONSTIPATION; Start at 21:00 Sodium Biphosphate/ Sodium Phosphate (Fleet Enema) 133 ml DAILY PRN [place] CONSTIPATION; Start 07/17/16 at 21:00 Nitroglycerin (Nitroglycerin (Sl Tab) 0.4 Mg) 1 tab Q5M PRN SL ANGINA Last administered on 07/19/16 13:57; Admin Dose 1 TAB; Start 07/17/16 at 21:00 Isoniazid (Isoniazid) 300 mg DAILY PO Last administered on 07/23/16 08:20; Admin Dose 300 MG; Start 07/18/16 at 09:00 Pentoxifylline (Trental) 400 mg DAILY PO Last administered on 07/23/16 08:20; Admin Dose 400 MG; Start 07/18/16 at 09:00 Pyridoxine HCl (Vitamin B6) 50 mg DAILY PO Last administered on 07/23/16 08:19 ; Admin Dose 50 MG; Start 07/18/16 at 09:00 Miscellaneous Information 1 ea NOTE XX ; Start 07/18/16 at 05:30 Glucose (Glutose) 15 gm Q15M PRN PO DECREASED GLUCOSE; Start 07/18/16 at 05:30 Glucose (Glutose) 22.5 gm Q15M PRN PO DECREASED GLUCOSE; Start 07/18/16 at 05: 30 Dextrose (D50w Syringe) 25 ml Q15M PRN IV DECREASED GLUCOSE; Start 07/18/16 at 05:30 Dextrose (D50w Syringe) 50 ml Q15M PRN IV DECREASED GLUCOSE; Start 07/18/16 at 05:30 Glucagon (Glucagen) 1 mg Q15M PRN IM DECREASED GLUCOSE; Start 07/18/16 at 05:30 Glucose (Glutose) 15 gm Q15M PRN BUCCAL DECREASED GLUCOSE; Start 07/18/16 at 05 :30 Diagnostic Test (Pha) (Accucheck) 1 ea 02 XX ; Start 07/18/16 at 08:00 Metoprolol Tartrate (Lopressor) 50 mg BID PO Last administered on 07/23/16 08: 19; Admin Dose 50 MG; Start 07/19/16 at 14:00 Atorvastatin Calcium (Lipitor) 40 mg HS PO Last administered on 07/22/16 21:55 ; Admin Dose 40 MG; Start 07/19/16 at 21:00 Epoetin Lico (Epogen (Esrd)) 10,000 units TuThSa@17 SC Last administered on 17:36; Admin Dose 10,000 UNITS; Start 07/21/16 at 17:00 Aspirin (Aspirin) 81 mg DAILY PO Last administered on 07/23/16 08:20; Admin Dose 81 MG; Start 07/21/16 at 09:00 Gentamicin Sulfate (Gentamicin Iv Per Pharmacy) GENTAMICIN PER PHARMACY NOTE XX ; Start 07/20/16 at 14:30 Trimethobenzamide HCl (Tigan) 200 mg Q6H PRN IM NAUSEA AND/OR VOMITING Last administered on 07/22/16 09:53; Admin Dose 200 MG; Start 07/20/16 at 21:00 Nystatin (Nystatin Susp) 5 ml QID PO Last administered on 07/23/16 08:20; Admin Dose 5 ML; Start 07/21/16 at 17:00 Amiodarone HCl (Cordarone) 200 mg DAILY PO Last administered on 07/23/16 08:20 ; Admin Dose 200 MG; Start 07/23/16 at 09:00 Metoclopramide HCl (Reglan) 5 mg Q4 PRN IV NAUSEA AND/OR VOMITING Last administered on 07/23/16 17:22; Admin Dose 5 MG; Start 07/22/16 at 17:00 Zolpidem Tartrate (Ambien) 2.5 mg ONCE PRN PO INSOMNIA Last administered on 02:26; Admin Dose 2.5 MG; Start 07/23/16 at 02:10; Stop 07/24/16 at 02: 09 Nifedipine (Procardia Xl) 60 mg DAILY PO Last administered on 07/23/16 10:40; Admin Dose 60 MG; Start 07/23/16 at 09:30 Lisinopril (Zestril) 20 mg BID PO ; Start 07/23/16 at 21:00 Hydralazine HCl (Apresoline) 10 mg Q2H PRN IV ELEVATED BLOOD PRESSURE; Start at 13:00 Pantoprazole (Protonix Tab) 40 mg DAILY@06 PO ; Start 07/24/16 at 06:00 Senna/Docusate Sodium (Senokot-S) 2 tab HS PO ; Start 07/23/16 at 21:00 Insulin Glargine (Lantus) 5 unit HS SC ; Start 07/23/16 at 21:00 Enoxaparin Sodium (Lovenox) 80 mg Q24H SC ; Start 07/24/16 at 09:00 Filipe Silveira DO Jul 23, 2016 19:38
[2016-07-23] MEDS: ATORVASTATIN 40 MG TAB PO SCH (21:26)
[2016-07-23] MEDS: SENNA/DOCUSATE NA (8.6MG/50MG) TAB PO SCH (21:26)
[2016-07-23] MEDS: LISINOPRIL 20 MG TAB PO SCH (21:27)
[2016-07-23] MEDS: INSULIN GLARGINE [LANtus] 3 ML PEN SC SCH (21:29)
--- NOTE | 2016-07-23 23:03 | CONS ---
DATE OF ADMISSION: 07/17/2016 DATE OF CONSULTATION: 07/23/2016 TYPE OF CONSULTATION: Vascular surgery consultation. Dear Doctors: HISTORY OF PRESENT ILLNESS: Ms. Mcghee is a 60-year-old female with a history of end-stage renal disease on dialysis who presented with generalized weakness, fever, and chills and, upon work up, it was determined that she may have a dialysis catheter infection. Vascular surgery consultatio n was obtained in order for removal of the catheter, as during her blood workup, it was identified f or the patient have positive blood cultures involved Serratia marcescens and mixed gram-positive org anisms upon final results. At the moment, the patient denies upper extremity claudication or rest p ain-like symptoms. The patient is positive for fever, chills. Denies nausea or vomiting. PAST MEDICAL HISTORY: Entails diabetes type 2, end-stage renal disease, coronary artery disease, hy pertension, hypercholesterolemia. Other past medical history entails anemia of chronic disease, min eral bone disease. PAST SURGICAL HISTORY: Entails right chest wall catheter. ALLERGIES: NO KNOWN DRUG ALLERGIES. SOCIAL HISTORY: Denies tobacco, alcohol, or illicit drug use. FAMILY HISTORY: Positive for coronary artery disease and diabetes. PHYSICAL EXAMINATION: GENERAL: Alert and oriented x3, no apparent distress. HEENT: Normocephalic, atraumatic. PERRLA, EOMI. Mucosa moist. NECK: Supple. No carotid bruit. PULMONARY: Clear to auscultation bilaterally. No crackles. CARDIOVASCULAR: S1, S2 present. No murmurs. ABDOMEN: Soft, nontender, nondistended. Bowel sounds positive. Truncal obesity. EXTREMITIES: Right lower extremity: Palpable femoral pulse, nonpalpable pedal pulse. Motor, senso ry intact. Cap refill 3 seconds. No ulcers or edema. Left lower extremity: Palpable femoral pulse, nonpalpable pedal pulse. Motor, sensory intact. Cap refill 3 to 4 seconds. No edema. Bilateral upper extremities: Palpable brachial pulse. Motor, sensory intact. Cap refill 2 to 3 se conds. No surgical scars. Right chest wall catheter with some tenderness on palpation over the tract. Otherwise, no pus ident ified. ASSESSMENT AND PLAN: End-stage renal disease: It seems the patient has bacteremia and sepsis. Upon her fever workup, it could be related to her permanent catheter as the source. We will schedule for the patient to unde rgo emergent removal of her perm catheter. Once we have given her adequate line holiday, we will sc hedule for the patient to undergo a Milton catheter placement, so she can receive her dialysis sess ions and we will schedule for the patient for fistula creation. 1. We will plan to obtain bilateral upper extremity vein mapping and arterial studies for evaluatio n of eventual fistula creation. 2. We will eventually schedule the patient for a perm catheter placement, as well, once her blood c ultures come back negative and no concern for infection is identified. 3. Optimize vascular status (blood pressure, meds, diet, nutrition, exercise, sugar control, antipl atelets). Discussed findings, plan, and management with the patient with a certified pilot control operator and they under stand. Thank you for allowing us to partake in the care of your patient. Please call with any questions. Dictated By: ABEL LYNN/FADUMO Conf#: [id number] DID#: [id number] CC: LUIS ENRIQUE STOKES;*EndCC*
[2016-07-24] VITALS (20 sets, daily range): BP systolic 112–154; BP diastolic 48–79; PULSE 55–132; RESP 16–21
[2016-07-24] MEDS: ACCUCHECK 2 AM XX SCH (02:00)
[2016-07-24] MEDS: GENTAMICIN 80 MG/NS (PMX) 50 ML IVPB SCH (03:21)
[2016-07-24] MEDS: PANTOPRAZOLE (EC) 40 MG TAB PO SCH (05:06)
[2016-07-24] MEDS: LEVOTHYROXINE 125 MCG TAB PO SCH (05:06)
[2016-07-24] MEDS: Insulin NOVOLOG SS MILD Algorithm (SS with meals and bedtime) SC SCH ×4 (07:30→20:58)
--- NOTE | 2016-07-24 07:58 | RADRPT ---
PROCEDURE: US bilateral upper extremity Venous. CLINICAL INDICATION: Renal failure, vein mapping TECHNIQUE: Multiple sonographic images of the bilateral upper lower extremity deep an superficial venous system was obtained utilizing grayscale, color-flow, compressive sonography and doppler imagi ng with augmentation. Measurements were performed. The images were reviewed on a PACS workstation. COMPARISON: None. FINDINGS: RIGHT Right basilic vein size: Proximal: 2 mm Mid aspect: 2 mm Distal: 5 mm Right basilic vein size in the forearm: Not seen Right cephalic vein size: Proximal: 3 mm Mid aspect: 3 mm Distal: 4 mm Right cephalic vein size in the forearm: Proximal: 2 mm Mid aspect: 2 mm Distal: 2 mm LEFT Left basilic vein size: Proximal: Not seen Mid aspect: Not seen Distal: 4 mm Left basilic vein size in the forearm: Not visualized Left cephalic vein size: Proximal: Not seen Mid aspect: Not seen Distal: 3 mm Left cephalic vein size in the forearm: Proximal: 1 mm Mid aspect: 2 mm Distal: Thrombosed IMPRESSION: Vein mapping as described. Thrombosed left cephalic vein in the upper forearm/elbow region. RPTAT: AA .Wesley Mata MD, MD Date Time Electronically viewed and signed by .Wesley Mata MD, on 07/24/2016 07:48 .S/
[2016-07-24 08:12] LABS: ADD SCAN DIFF NO
[2016-07-24 08:24] LABS: BASOPHILS % 0.3 % (0.0-2.0); EOSINOPHILS # 0.3 10^3/ul (0.0-0.5); EOSINOPHILS % 2.7 % (0.0-7.0); HEMATOCRIT 30.8 % (37.0-47.0); HEMOGLOBIN 9.9 g/dl (12.0-16.0); LYMPHOCYTES % 9.5 % (15.0-51.0); MAGNESIUM 1.9 mg/dl (1.7-2.5); MEAN CORPUSCULAR HEMOGLOBIN 29.1 pg (29.0-33.0); MEAN CORPUSCULAR HGB CONC 32.1 g/dl (32.0-37.0); MEAN CORPUSCULAR VOLUME 90.6 fl (82.0-101.0); MEAN PLATELET VOLUME 11.3 fl (7.4-10.4); MONOCYTE # 0.8 10^3/ul (0.3-0.9); NEUTROPHILS % 75.5 % (39.0-77.0); PHOSPHORUS 3.8 mg/dl (2.5-4.9); PLATELET COUNT 216 10^3/UL (140-415); RED CELL DISTRIBUTION WIDTH 15.6 % (11.5-14.5); WHITE BLOOD COUNT 10.6 10^3/ul (4.8-10.8)
[2016-07-24] MEDS ORDERED: ENOXAPARIN 100 MG/ML SYG SC SCH (09:00)
[2016-07-24] MEDS: NYSTATIN SUSP 5 ML CUP PO SCH ×4 (09:00→20:53)
[2016-07-24 09:22] LABS: POTASSIUM 3.9 mmol/L (3.5-5.1)
[2016-07-24 09:25] LABS: CREATININE 4.54 mg/dl (0.44-1.00)
[2016-07-24 09:26] LABS: CALCIUM 7.6 mg/dl (8.4-10.2)
[2016-07-24] MEDS: PENTOXIFYLLINE (SR) 400 MG TAB PO SCH (09:26)
[2016-07-24] MEDS: LISINOPRIL 20 MG TAB PO SCH ×2 (09:26→20:54)
[2016-07-24] MEDS: PYRIDOXINE 50 MG TAB PO SCH (09:26)
[2016-07-24] MEDS: AMIODARONE 200 MG TAB PO SCH (09:26)
[2016-07-24] MEDS: ISONIAZID 300 MG TAB PO SCH (09:26)
[2016-07-24] MEDS: ASPIRIN 81 MG TAB PO SCH (09:26)
[2016-07-24] MEDS: METOPROLOL 50 MG TAB PO SCH ×2 (09:27→20:53)
[2016-07-24] MEDS: NIFEdipine (XL) 60 MG TAB PO SCH (09:27)
[2016-07-24] MEDS: ENOXAPARIN 80 MG/0.8 ML SYG SC SCH (09:30)
--- NOTE | 2016-07-24 10:22 | PN ---
DATE: 07/24/2016 SUBJECTIVE: The patient has a Milton catheter placed, had hemodialysis yesterday. Dialysis was co mplicated. I had to speak with the dialysis nurse 2 times during the course of dialysis due blood p ressure fluctuations. The dialysis blood flow rate, as well as dialysis rate, were adjusted. The p atient subsequently tolerated the procedure well. No other events noted. OBJECTIVE: VITAL SIGNS: Blood pressure 154/71, respirations 16, pulse 60, temperature 98.9. HEENT: Head is normocephalic. NECK: Supple. HEART: Regular rate. LUNGS: Show diminished breath sounds at base. ABDOMEN: Soft, nontender to palpation. No rebound or guarding. EXTREMITIES: Negative for clubbing, cyanosis, no edema. DERMATOLOGIC: No rashes. MUSCULOSKELETAL: No joint effusions. NEUROLOGIC: No change in exam. MEDICATIONS: The patient's medications have been reviewed. LABORATORY DATA: Sodium 136, potassium 3.9, BUN 25, creatinine 4.54. White count 10.6, hemoglobin 9.9, hematocrit 30.8, platelet count 260. ASSESSMENT AND PLAN: 1. End-stage renal disease. The patient was dialyzed yesterday after a [place] catheter was placed . Plan for dialysis again tomorrow for 3 hours and 3 K bath, calcium 2.5, will ultrafiltrate as hari erated. 2. Sepsis secondary to line infection. The patient's Perm-A-Cath was discontinued. Blood cultures growing Serratia. Repeat cultures have been negative. At this point, continue current IV antibiot ics. 3. Access. The patient currently has a [place] catheter, will need a Perm-A-Cath. Will discuss [facility] infectious disease if the patient is stable for Perm-A-Cath placement. 4. Hypertensive urgency, improved. Continue current blood pressure regimen. Continue ultrafiltrat ion dialysis. 5. Anemia of chronic disease. Continue to monitor hemoglobin and hematocrit levels. Continue Epog en. 6. Mineral bone disorder. Continue to monitor calcium and phosphorus levels. Continue phosphate b inders. 7. Diabetes, continue Accu-Cheks and insulin sliding scale. 9. Atrial fibrillation, patient is currently rate controlled. Continue current medical management. The patient is status post nuclear scan which showed no evidence of ischemia. Continue to monitor . Follow up with cardiology. Dictated By: LY MENDEZ/FADUMO Conf#: [id number] [facility]#: [id number]
--- NOTE | 2016-07-24 12:02 | PN ---
Date/Time of Note Date/Time of Note DATE: 07/24/16 TIME: 11:55 Assessment/Plan VTE Prophylaxis VTE Prophylaxis Intervention: LMWH Lines/Catheters IV Catheter Type (from Nrs): ALBERTA Urinary Cath still in place: No Assessment/Plan Chief Complaint/Hosp Course Subjective: Tired, no sleep. Had hd overnight. No dyspnea or fever. 6 beats nsvt overnight. Stress test was negative. Sp hd access placement. O: Vitals stable; 6 beats nsvt noted PE: No pallor JVD Regular at present no murmur rub gallop Clear bilaterally Bs positive, nontender, nondistended, no R/r/G No edema; rt HD Access C/D/I A/P 1) Sepsis/ line sepsis/ serratia. sp access removal. stable, cont gent w HD. 2) ESRD/ hd; groin catheter for now. permacath vs avf at some point down the line/when ok w ID and nephrology. 3) Dm 8.0 4) Htn/ dyslipidemia- low hdl 5) Hypothyroidism 6) Anemia; stable 7) P A Fib; on amiodarone. Rx #1. Stress test negative. 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 Consider Coumadin. Appreciate vascular assistance 11. Nonsustained V. tach 6 beats, replace electrolytes. Keep on telemetry status Problems: Exam/Review of Systems Vital Signs Vitals Vital Signs Date Time Temp Pulse Resp B/P Pulse Ox O2 Delivery O2 Flow Rate FiO2 07/24/16 08:10 98.9 63 16 154/71 92 07/24/16 02:13 2.0 07/23/16 22:17 Nasal Cannula Intake and Output 07/23/16 07/23/16 07/24/16 15:00 23:00 07:00 Intake Total 150 ml 1050 ml Output Total 2416 ml Balance 150 ml -1366 ml Results Result Diagram: 07/24/1672107/24/16721 Results 24 hrs Laboratory Tests Test 07/23/16 17:04 07/23/16 17:06 07/23/16 21:25 07/24/16 07:22 Activated Partial Thromboplast Time 41.5 H INR International Normalized Ratio 0.99 Prothrombin Time 13.1 Prothrombin Time Ratio 1.0 Bedside Glucose 168 177 Anion Gap 17 H Basophils # 0.0 Basophils % 0.3 Blood Urea Nitrogen 25 #H Calcium Level 7.6 L Carbon Dioxide Level 25 Chloride Level 98 Creatinine 4.54 #H Eosinophils # 0.3 Eosinophils % 2.7 Glucose Level 158 Hematocrit 30.8 L Hemoglobin 9.9 L Lymphocytes # 1.0 Lymphocytes % 9.5 L Magnesium Level 1.9 Mean Corpuscular Hemoglobin 29.1 Mean Corpuscular Hemoglobin Concent 32.1 Mean Corpuscular Volume 90.6 Mean Platelet Volume 11.3 H Monocytes # 0.8 Monocytes % 8.0 Neutrophils # 8.0 H Neutrophils % 75.5 Nucleated Red Blood Cells # 0.0 Nucleated Red Blood Cells % 0.0 Phosphorus Level 3.8 Platelet Count 216 Potassium Level 3.9 Red Blood Count 3.40 L Red Cell Distribution Width 15.6 H Sodium Level 136 White Blood Count 10.6 Test 07/24/16 08:12 07/24/16 11:52 Bedside Glucose 148 152 Medications Medications Current Medications Acetaminophen (Tylenol Tab) 650 mg Q6H PRN PO PAIN LEVEL 1-3 OR FEVER Last administered on 07/18/16 08:28; Admin Dose 650 MG; Start 07/17/16 at 21:00 Acetaminophen/ Hydrocodone Bitart ([place] (5/325)) 1 tab Q6H PRN PO MODERATE PAIN LEVEL 4-6; Start 07/17/16 at 21:00 Morphine Sulfate (morphine) 2 mg Q4H PRN IV SEVERE PAIN LEVEL 7-10 Last administered on 07/20/16 16:47; Admin Dose 2 MG; Start 07/17/16 at 21:00 Docusate Sodium (Colace) 100 mg Q12H PRN PO CONSTIPATION; Start 07/17/16 at 21: 00 Magnesium Hydroxide (Milk Of Mag) 30 ml DAILY PRN PO CONSTIPATION; Start at 21:00 Sodium Biphosphate/ Sodium Phosphate (Fleet Enema) 133 ml DAILY PRN [place] CONSTIPATION; Start 07/17/16 at 21:00 Nitroglycerin (Nitroglycerin (Sl Tab) 0.4 Mg) 1 tab Q5M PRN SL ANGINA Last administered on 07/19/16 13:57; Admin Dose 1 TAB; Start 07/17/16 at 21:00 Isoniazid (Isoniazid) 300 mg DAILY PO Last administered on 07/24/16 09:26; Admin Dose 300 MG; Start 07/18/16 at 09:00 Pentoxifylline (Trental) 400 mg DAILY PO Last administered on 07/24/16 09:26; Admin Dose 400 MG; Start 07/18/16 at 09:00 Pyridoxine HCl (Vitamin B6) 50 mg DAILY PO Last administered on 07/24/16 09:26 ; Admin Dose 50 MG; Start 07/18/16 at 09:00 Miscellaneous Information 1 ea NOTE XX ; Start 07/18/16 at 05:30 Glucose (Glutose) 15 gm Q15M PRN PO DECREASED GLUCOSE; Start 07/18/16 at 05:30 Glucose (Glutose) 22.5 gm Q15M PRN PO DECREASED GLUCOSE; Start 07/18/16 at 05: 30 Dextrose (D50w Syringe) 25 ml Q15M PRN IV DECREASED GLUCOSE; Start 07/18/16 at 05:30 Dextrose (D50w Syringe) 50 ml Q15M PRN IV DECREASED GLUCOSE; Start 07/18/16 at 05:30 Glucagon (Glucagen) 1 mg Q15M PRN IM DECREASED GLUCOSE; Start 07/18/16 at 05:30 Glucose (Glutose) 15 gm Q15M PRN BUCCAL DECREASED GLUCOSE; Start 07/18/16 at 05 :30 Diagnostic Test (Pha) (Accucheck) 1 ea 02 XX ; Start 07/18/16 at 08:00 Metoprolol Tartrate (Lopressor) 50 mg BID PO Last administered on 07/24/16 09: 27; Admin Dose 50 MG; Start 07/19/16 at 14:00 Atorvastatin Calcium (Lipitor) 40 mg HS PO Last administered on 07/23/16 21:26 ; Admin Dose 40 MG; Start 07/19/16 at 21:00 Epoetin Lico (Epogen (Esrd)) 10,000 units TuThSa@17 SC Last administered on 17:36; Admin Dose 10,000 UNITS; Start 07/21/16 at 17:00 Aspirin (Aspirin) 81 mg DAILY PO Last administered on 07/24/16 09:26; Admin Dose 81 MG; Start 07/21/16 at 09:00 Gentamicin Sulfate (Gentamicin Iv Per Pharmacy) GENTAMICIN PER PHARMACY NOTE XX ; Start 07/20/16 at 14:30 Trimethobenzamide HCl (Tigan) 200 mg Q6H PRN IM NAUSEA AND/OR VOMITING Last administered on 07/22/16 09:53; Admin Dose 200 MG; Start 07/20/16 at 21:00 Nystatin (Nystatin Susp) 5 ml QID PO Last administered on 07/23/16 21:26; Admin Dose 5 ML; Start 07/21/16 at 17:00 Amiodarone HCl (Cordarone) 200 mg DAILY PO Last administered on 07/24/16 09:26 ; Admin Dose 200 MG; Start 07/23/16 at 09:00 Metoclopramide HCl (Reglan) 5 mg Q4 PRN IV NAUSEA AND/OR VOMITING Last administered on 07/23/16 21:38; Admin Dose 5 MG; Start 07/22/16 at 17:00 Nifedipine (Procardia Xl) 60 mg DAILY PO Last administered on 07/24/16 09:27; Admin Dose 60 MG; Start 07/23/16 at 09:30 Lisinopril (Zestril) 20 mg BID PO Last administered on 07/24/16 09:26; Admin Dose 20 MG; Start 07/23/16 at 21:00 Hydralazine HCl (Apresoline) 10 mg Q2H PRN IV ELEVATED BLOOD PRESSURE; Start at 13:00 Pantoprazole (Protonix Tab) 40 mg DAILY@06 PO Last administered on 07/24/16 05 :06; Admin Dose 40 MG; Start 07/24/16 at 06:00 Senna/Docusate Sodium (Senokot-S) 2 tab HS PO Last administered on 07/23/16 21 :26; Admin Dose 2 TAB; Start 07/23/16 at 21:00 Insulin Glargine (Lantus) 5 unit HS SC Last administered on 07/23/16 21:29; Admin Dose 5 UNIT; Start 07/23/16 at 21:00 Enoxaparin Sodium (Lovenox) 80 mg Q24H SC Last administered on 07/24/16 09:30 ; Admin Dose 80 MG; Start 07/24/16 at 09:00 ELINA JOHNSON MD Jul 24, 2016 12:02
[2016-07-24] MEDS: CALCIUM ACETATE 667 MG CAP PO SCH ×2 (12:49→17:33)
--- NOTE | 2016-07-24 14:15 | CARRPT ---
DATE OF PROCEDURE: 07/24/2016 PROCEDURE: Lexiscan nuclear stress test. PATIENT HISTORY: This is a 60-year-old female who presents with atrial fibrillation with rapid vent ricular rates and elevated troponin. BASELINE ELECTROCARDIOGRAM: Sinus rhythm at 63 beats per minute. BASELINE HEART RATE: 63. BASELINE BLOOD PRESSURE: 115/53. Lexiscan was administered as per protocol. SYMPTOMS: Headache and nausea which resolved. PEAK HEART RATE: 73. PEAK BLOOD PRESSURE: 122/53. ELECTROCARDIOGRAM INTERPRETATION: Nonischemic. ARRHYTHMIAS: None. The nuclear portion will be interpreted by our radiology colleagues. Dictated By: MARLON VASQUES/FADUMO Conf#: [id number] DID#: [id number]
--- NOTE | 2016-07-24 14:55 | PN ---
DATE: 07/24/2016 SUBJECTIVE: The patient is alert, feels better. Looks comfortable, no fevers. LABORATORY: White blood cell count today 10.6, no shift. INDWELLINGS: Right femoral Milton. ANTIMICROBIALS: The patient is on gentamicin IV. PHYSICAL EXAMINATION: GENERAL: Well-developed, elderly woman who is alert, in no distress. HEENT: Head atraumatic, normocephalic. Sclerae anicteric. Buccal mucosa pink. NECK: Supple. CHEST: Rise symmetrical. Breath sounds clear. HEART: S1, S2. ABDOMEN: Soft. Bowel tones present. ASSESSMENT: 1. Line sepsis with Serratia marcescens bacteremia on admission, PermCath removed on 07/20/2016. 2. End-stage renal disease, dialysis dependent. 3. Status post rapid atrial fibrillation. 4. Diabetes. PLAN: The patient remains stable. Continue present care. Complete antibiotics for 10 more days. Follow recommendations of consultants. Dictated By: TAI MENESES DAYTIME CAREGIVER for ARIEL RENDON/FADUMO Conf#: [id number] DID#: [id number]
--- NOTE | 2016-07-24 16:58 | CONS ---
Date/Time of Note Date/Time of Note DATE: 07/24/16 TIME: 16:56 Assessment/Plan Assessment/Plan Additional Assessment/Plan New onset atrial fibrillation with rapid ventricular rates, currently sinus rhythm Elevated troponin Preserved ejection fraction Sepsis with gram-negative bacteremia Acute blood loss anemia End-stage renal disease on hemodialysis Diabetes -Patient with episode of nonsustained ventricular tachycardia with 8 complexes. Would supplement magnesium. Continue beta-erin, aspirin and statin therapy. Nuclear cardiac perfusion study performed yesterday with no evidence of ischemia. Consultation Date/Type/Reason Admit Date/Time Jul 17, 2016 at 20:10 Type of Consultation: cv 24 HR Interval Summary Free Text/Dictation Patient denies chest pain, shortness of breath or palpitations Exam/Review of Systems Vital Signs Vitals Vital Signs Date Time Temp Pulse Resp B/P Pulse Ox O2 Delivery O2 Flow Rate FiO2 07/24/16 16:29 98.4 57 17 112/56 95 07/24/16 02:13 2.0 07/23/16 22:17 Nasal Cannula Intake and Output 07/23/16 07/23/16 07/24/16 15:00 23:00 07:00 Intake Total 150 ml 1050 ml Output Total 2416 ml Balance 150 ml -1366 ml Exam No apparent distress Constitutional: alert, oriented Head: normocephalic Neck: supple Respiratory: other (Coarse breath sounds bilaterally, no wheezing) Cardiovascular: other (S1-S2 heard), regular rate and rhythm Gastrointestinal: bowel sounds, non-tender, other (No guarding), soft Extremities: edema, other (No cyanosis) Results Result Diagram: 07/24/16 0722 07/24/16 0722 Results 24 hrs Laboratory Tests Test 07/23/16 17:04 07/23/16 17:06 07/23/16 21:25 07/24/16 07:22 Activated Partial Thromboplast Time 41.5 H INR International Normalized Ratio 0.99 Prothrombin Time 13.1 Prothrombin Time Ratio 1.0 Bedside Glucose 168 177 Anion Gap 17 H Basophils # 0.0 Basophils % 0.3 Blood Urea Nitrogen 25 #H Calcium Level 7.6 L Carbon Dioxide Level 25 Chloride Level 98 Creatinine 4.54 #H Eosinophils # 0.3 Eosinophils % 2.7 Glucose Level 158 Hematocrit 30.8 L Hemoglobin 9.9 L Lymphocytes # 1.0 Lymphocytes % 9.5 L Magnesium Level 1.9 Mean Corpuscular Hemoglobin 29.1 Mean Corpuscular Hemoglobin Concent 32.1 Mean Corpuscular Volume 90.6 Mean Platelet Volume 11.3 H Monocytes # 0.8 Monocytes % 8.0 Neutrophils # 8.0 H Neutrophils % 75.5 Nucleated Red Blood Cells # 0.0 Nucleated Red Blood Cells % 0.0 Phosphorus Level 3.8 Platelet Count 216 Potassium Level 3.9 Red Blood Count 3.40 L Red Cell Distribution Width 15.6 H Sodium Level 136 White Blood Count 10.6 Test 07/24/16 08:12 07/24/16 11:52 Bedside Glucose 148 152 Medications Medications Current Medications Acetaminophen (Tylenol Tab) 650 mg Q6H PRN PO PAIN LEVEL 1-3 OR FEVER Last administered on 07/18/16 08:28; Admin Dose 650 MG; Start 07/17/16 at 21:00 Acetaminophen/ Hydrocodone Bitart ([place] (5/325)) 1 tab Q6H PRN PO MODERATE PAIN LEVEL 4-6; Start 07/17/16 at 21:00 Morphine Sulfate (morphine) 2 mg Q4H PRN IV SEVERE PAIN LEVEL 7-10 Last administered on 07/20/16 16:47; Admin Dose 2 MG; Start 07/17/16 at 21:00 Docusate Sodium (Colace) 100 mg Q12H PRN PO CONSTIPATION; Start 07/17/16 at 21: 00 Magnesium Hydroxide (Milk Of Mag) 30 ml DAILY PRN PO CONSTIPATION; Start at 21:00 Sodium Biphosphate/ Sodium Phosphate (Fleet Enema) 133 ml DAILY PRN [place] CONSTIPATION; Start 07/17/16 at 21:00 Nitroglycerin (Nitroglycerin (Sl Tab) 0.4 Mg) 1 tab Q5M PRN SL ANGINA Last administered on 07/19/16 13:57; Admin Dose 1 TAB; Start 07/17/16 at 21:00 Isoniazid (Isoniazid) 300 mg DAILY PO Last administered on 07/24/16 09:26; Admin Dose 300 MG; Start 07/18/16 at 09:00 Pentoxifylline (Trental) 400 mg DAILY PO Last administered on 07/24/16 09:26; Admin Dose 400 MG; Start 07/18/16 at 09:00 Pyridoxine HCl (Vitamin B6) 50 mg DAILY PO Last administered on 07/24/16 09:26 ; Admin Dose 50 MG; Start 07/18/16 at 09:00 Miscellaneous Information 1 ea NOTE XX ; Start 07/18/16 at 05:30 Glucose (Glutose) 15 gm Q15M PRN PO DECREASED GLUCOSE; Start 07/18/16 at 05:30 Glucose (Glutose) 22.5 gm Q15M PRN PO DECREASED GLUCOSE; Start 07/18/16 at 05: 30 Dextrose (D50w Syringe) 25 ml Q15M PRN IV DECREASED GLUCOSE; Start 07/18/16 at 05:30 Dextrose (D50w Syringe) 50 ml Q15M PRN IV DECREASED GLUCOSE; Start 07/18/16 at 05:30 Glucagon (Glucagen) 1 mg Q15M PRN IM DECREASED GLUCOSE; Start 07/18/16 at 05:30 Glucose (Glutose) 15 gm Q15M PRN BUCCAL DECREASED GLUCOSE; Start 07/18/16 at 05 :30 Diagnostic Test (Pha) (Accucheck) 1 ea 02 XX ; Start 07/18/16 at 08:00 Metoprolol Tartrate (Lopressor) 50 mg BID PO Last administered on 07/24/16 09: 27; Admin Dose 50 MG; Start 07/19/16 at 14:00 Atorvastatin Calcium (Lipitor) 40 mg HS PO Last administered on 07/23/16 21:26 ; Admin Dose 40 MG; Start 07/19/16 at 21:00 Epoetin Lico (Epogen (Esrd)) 10,000 units TuThSa@17 SC Last administered on 17:36; Admin Dose 10,000 UNITS; Start 07/21/16 at 17:00 Aspirin (Aspirin) 81 mg DAILY PO Last administered on 07/24/16 09:26; Admin Dose 81 MG; Start 07/21/16 at 09:00 Gentamicin Sulfate (Gentamicin Iv Per Pharmacy) GENTAMICIN PER PHARMACY NOTE XX ; Start 07/20/16 at 14:30 Trimethobenzamide HCl (Tigan) 200 mg Q6H PRN IM NAUSEA AND/OR VOMITING Last administered on 07/22/16 09:53; Admin Dose 200 MG; Start 07/20/16 at 21:00 Nystatin (Nystatin Susp) 5 ml QID PO Last administered on 07/23/16 21:26; Admin Dose 5 ML; Start 07/21/16 at 17:00 Amiodarone HCl (Cordarone) 200 mg DAILY PO Last administered on 07/24/16 09:26 ; Admin Dose 200 MG; Start 07/23/16 at 09:00 Metoclopramide HCl (Reglan) 5 mg Q4 PRN IV NAUSEA AND/OR VOMITING Last administered on 07/23/16 21:38; Admin Dose 5 MG; Start 07/22/16 at 17:00 Nifedipine (Procardia Xl) 60 mg DAILY PO Last administered on 07/24/16 09:27; Admin Dose 60 MG; Start 07/23/16 at 09:30 Lisinopril (Zestril) 20 mg BID PO Last administered on 07/24/16 09:26; Admin Dose 20 MG; Start 07/23/16 at 21:00 Hydralazine HCl (Apresoline) 10 mg Q2H PRN IV ELEVATED BLOOD PRESSURE; Start at 13:00 Pantoprazole (Protonix Tab) 40 mg DAILY@06 PO Last administered on 07/24/16 05 :06; Admin Dose 40 MG; Start 07/24/16 at 06:00 Senna/Docusate Sodium (Senokot-S) 2 tab HS PO Last administered on 07/23/16 21 :26; Admin Dose 2 TAB; Start 07/23/16 at 21:00 Insulin Glargine (Lantus) 5 unit HS SC Last administered on 07/23/16 21:29; Admin Dose 5 UNIT; Start 07/23/16 at 21:00 Enoxaparin Sodium (Lovenox) 80 mg Q24H SC Last administered on 07/24/16 09:30 ; Admin Dose 80 MG; Start 07/24/16 at 09:00 Filipe Silveira DO Jul 24, 2016 16:58
[2016-07-24] MEDS ORDERED: MAGNESIUM SULFATE 1 GM/D5W 100 ML IVPB ONE (17:30)
[2016-07-24] MEDS: EPOETIN 10000 UNITS/1 ML INJ (ESRD) SC SCH (17:34)
--- NOTE | 2016-07-24 18:10 | RADRPT ---
Vent Rate: 130 bpm RR Interval: 0 msec DC Interval: 0 msec QRS Duration: 78 msec QT Interval: 330 msec QTC Interval: 485 msec P-R-T [place]: 0 - 14 - 165 degrees Atrial fibrillation with rapid ventricular response with premature ventricular or aberrantly conducted complexes Possible Anterior infarct , age undetermined ST/T wave abnormality, consider lateral ischemia or digitalis effect Abnormal ECG Electronically Signed By: Niraj Aguirre [id number]
--- NOTE | 2016-07-24 18:13 | RADRPT ---
Vent Rate: 66 bpm RR Interval: 0 msec [place] Interval: 138 msec QRS Duration: 78 msec QT Interval: 420 msec QTC Interval: 440 msec P-R-T [place]: 56 - 17 - 75 degrees Normal sinus rhythm Cannot rule out Anterior infarct , age undetermined Abnormal ECG Electronically Signed By: Niraj Aguirre [id number]
--- NOTE | 2016-07-24 20:17 | RADRPT ---
PROCEDURE: XR Chest. CLINICAL INDICATION: Preoperative. TECHNIQUE: Single frontal view. COMPARISON: 07/17/2016. FINDINGS: The lungs are clear. Previously noted right internal jugular vein tunneled dialysis catheter is no longer present. The heart is enlarged. There is no pleural effusion. There is no pneumothorax. IMPRESSION: 1. Right IJ tunnel dialysis catheter removed. 2. Cardiomegaly. 3. Clear lungs. RPTAT: QQ .Kvng Ching MD, MD Date Time Electronically viewed and signed by .Kvng Ching MD, MD on 07/24/2016 20:17 .R/
[2016-07-24] MEDS: ATORVASTATIN 40 MG TAB PO SCH (20:54)
[2016-07-24] MEDS: INSULIN GLARGINE [LANtus] 3 ML PEN SC SCH (20:58)
[2016-07-24] MEDS: SENNA/DOCUSATE NA (8.6MG/50MG) TAB PO SCH (20:58)
[2016-07-25] VITALS (20 sets, daily range): BP systolic 136–205; BP diastolic 64–95; PULSE 58–69; RESP 16–20
[2016-07-25] MEDS: ACCUCHECK 2 AM XX SCH (02:00)
[2016-07-25] MEDS: PANTOPRAZOLE (EC) 40 MG TAB PO SCH ×2 (05:54→23:53)
[2016-07-25] MEDS: LEVOTHYROXINE 125 MCG TAB PO SCH (05:54)
[2016-07-25] MEDS: Insulin NOVOLOG SS MILD Algorithm (SS with meals and bedtime) SC SCH ×4 (07:30→23:55)
[2016-07-25] MEDS: AMIODARONE 200 MG TAB PO SCH (08:10)
[2016-07-25] MEDS: LISINOPRIL 20 MG TAB PO SCH ×2 (08:11→23:54)
[2016-07-25] MEDS: METOPROLOL 50 MG TAB PO SCH ×2 (08:11→23:57)
[2016-07-25] MEDS: NIFEdipine (XL) 60 MG TAB PO SCH (08:11)
--- NOTE | 2016-07-25 08:21 | RADRPT ---
Vent Rate: 62 bpm RR Interval: 0 msec MD Interval: 132 msec QRS Duration: 78 msec QT Interval: 434 msec QTC Interval: 440 msec P-R-T [place]: 42 - 5 - 83 degrees Normal sinus rhythm Nonspecific T wave abnormality Abnormal ECG Electronically Signed By: Praneeth Galvez [id number]
[2016-07-25] MEDS: ISONIAZID 300 MG TAB PO SCH (08:28)
[2016-07-25] MEDS: ASPIRIN 81 MG TAB PO SCH (08:28)
[2016-07-25] MEDS: NYSTATIN SUSP 5 ML CUP PO SCH ×4 (08:28→23:52)
[2016-07-25] MEDS: PYRIDOXINE 50 MG TAB PO SCH (08:29)
[2016-07-25] MEDS: CALCIUM ACETATE 667 MG CAP PO SCH ×3 (08:29→17:29)
[2016-07-25] MEDS: PENTOXIFYLLINE (SR) 400 MG TAB PO SCH (08:29)
[2016-07-25] MEDS: ENOXAPARIN 80 MG/0.8 ML SYG SC SCH (08:30)
[2016-07-25 08:53] LABS: MAGNESIUM 2.2 mg/dl (1.7-2.5); PHOSPHORUS 5.2 mg/dl (2.5-4.9)
--- NOTE | 2016-07-25 11:35 | PN ---
DATE: 07/25/2016 SUBJECTIVE: The patient is stable, no acute events overnight. No fevers, chills, nausea, vomiting. The patient is scheduled for dialysis today. OBJECTIVE: VITAL SIGNS: Blood pressure is 154/64, respiration 19, pulse 65, temperature 99.1. HEENT: Head is normocephalic. NECK: Supple. HEART: Regular rate. LUNGS: Show diminished breath sounds at the base. ABDOMEN: Soft, nontender to palpation. No rebound or guarding. EXTREMITIES: Negative for clubbing, cyanosis, no edema. DERMATOLOGIC: No rashes. MUSCULOSKELETAL: No joint effusions. NEUROLOGIC: No change in exam. MEDICATIONS: Have been reviewed. LABORATORY DATA: Has been reviewed. No new labs. ASSESSMENT AND PLAN: 1. End-stage renal disease. The patient had dialysis yesterday. Plan for dialysis again today for 3 hours, 2K bath, calcium 2.5. 2. Sepsis secondary to line infection. The patient's PermCath has been removed. The patient remai ns on antibiotics. Repeat cultures have been negative. 3. Access. The patient's currently with a [place] catheter. We will discuss with infectious disea se if a new PermCath can be placed. 4. Hypertension, improved. Continue current blood pressure regimen. Continue ultrafiltration dial ysis. 5. Anemia of chronic disease. Continue to monitor hemoglobin and hematocrit levels. Continue Epog en. 6. Mineral bone disorder. Continue to monitor calcium and phosphorus levels. Continue phosphate b inders. 7. Diabetes. Continue Accu-Cheks and sliding scale. 8. Atrial fibrillation, currently rate controlled. Continue medical management. Will follow up [facility] cardiology. 9. Nonsustained ventricular tachycardia. Will continue to monitor. Dictated By: LY MENDEZ/NTS Conf#: [id number] DID#: [id number]
[2016-07-25 11:51] LABS: POTASSIUM 5.2 mmol/L (3.5-5.1)
[2016-07-25 11:54] LABS: CREATININE 6.06 mg/dl (0.44-1.00)
[2016-07-25 11:55] LABS: CALCIUM 7.9 mg/dl (8.4-10.2)
--- NOTE | 2016-07-25 12:06 | PN ---
Date/Time of Note Date/Time of Note DATE: 07/25/16 TIME: 12:04 Assessment/Plan Lines/Catheters IV Catheter Type (from [facility]): ALBERTA CATHETER [place] in Place (from [facility]): No Assessment/Plan Chief Complaint/Hosp Course -End-stage renal disease: It seems the patient has bacteremia and sepsis. Upon her fever workup, it could be related to her permanent catheter as the source. S/P emergent removal of her perm catheter. S/P [place] catheter placement -It seems the patient had a cardiac event. Will await for eventual clearance for for fistula creation. -We will eventually schedule the patient for a perm catheter placement, as well , once her blood cultures come back negative and no concern for infection is identified. -Optimize vascular status (blood pressure, meds, diet, nutrition, exercise, sugar control, antiplatelets). -Discussed findings, plan, and management with the patient with a certified first line supervisor and they understand. -Thank you for allowing us to partake in the care of your patient. Please call with any questions. Problems: Subjective 24 Hr Interval Summary no new vascular events overnight Exam/Review of Systems Vital Signs Vitals Vital Signs Date Time Temp Pulse Resp B/P Pulse Ox O2 Delivery O2 Flow Rate FiO2 07/25/16 08:53 99.1 65 19 154/64 90 07/24/16 20:00 Nasal Cannula 07/24/16 19:39 2.0 Intake and Output 07/24/16 07/24/16 07/25/16 15:00 23:00 07:00 Intake Total 800 ml 700 ml Balance 800 ml 700 ml Exam Free Text/Dictation GENERAL: Alert and oriented x3, PULMONARY: Clear to auscultation bilaterally. CARDIOVASCULAR: S1, S2 present. ABDOMEN: Soft, nontender, nondistended. Bowel sounds positive. Truncal obesity. EXTREMITIES: Right lower extremity: Palpable femoral pulse, [place] catheter intact, nonpalpable pedal pulse. Motor, sensory intact. Cap refill 3 seconds. No ulcers or edema. Left lower extremity: Palpable femoral pulse, nonpalpable pedal pulse. Motor, sensory intact. Cap refill 3 to 4 seconds. No edema. Bilateral upper extremities: Palpable brachial pulse. Motor, sensory intact. Cap refill 2 to 3 seconds. No surgical scars. Results Result Diagram: 07/24/1672107/25/16 07 ABEL HEARD MD Jul 25, 2016 12:06
--- NOTE | 2016-07-25 13:15 | CONS ---
Date/Time of Note Date/Time of Note DATE: 07/25/16 TIME: 13:13 Assessment/Plan Assessment/Plan Chief Complaint/Hosp Course SUBJECTIVE: No acute events, sleeping, no fevers, nad ANTIMICROBIALS: Gentamicin PHYSICAL EXAMINATION: GENERAL: Well-developed, elderly woman who is awake, in no distress. HEENT: Head atraumatic, normocephalic. Sclerae anicteric. Buccal mucosa pink. NECK: Supple. CHEST: Rise symmetrical. Breath sounds clear, diminished to bases. HEART: S1, S2. ABDOMEN: Soft, bowel sounds present. EXTREMITIES: Without cyanosis. ASSESSMENT: 1. Line sepsis with gram-negative aziza bacteremia on admission==> s/p permacath dc'd. 2. End-stage renal disease. 3. Diabetes. 4. Hypertension. 5. Questionable history of tuberculosis versus history of exposure, remains on INH. 6. Anemia 7. Oral candidiasis PLAN: Remains stable, repeat bld cx negative, continue abx to complete treatment of 2 weeks, pending belinda Ndiaye Problems: Consultation Date/Type/Reason Admit Date/Time Jul 17, 2016 at 20:10 Type of Consultation: ID Exam/Review of Systems Vital Signs Vitals Vital Signs Date Time Temp Pulse Resp B/P Pulse Ox O2 Delivery O2 Flow Rate FiO2 07/25/16 12:13 98.3 63 18 159/72 95 07/24/16 20:00 Nasal Cannula 07/24/16 19:39 2.0 Intake and Output 07/24/16 07/24/16 07/25/16 15:00 23:00 07:00 Intake Total 800 ml 700 ml Balance 800 ml 700 ml Results Result Diagram: 07/24/16 0722 07/25/16 0706 Results 24 hrs Laboratory Tests Test 07/24/16 17:14 07/24/16 20:46 07/25/16 03:08 07/25/16 07:06 Bedside Glucose 203 187 133 Sodium Level 135 Potassium Level 5.2 H Chloride Level 99 Carbon Dioxide Level 20 L Anion Gap 21 H Blood Urea Nitrogen 33 H Creatinine 6.06 H Glucose Level 99 # Calcium Level 7.9 L Phosphorus Level 5.2 H Magnesium Level 2.2 Test 07/25/16 07:32 07/25/16 11:54 Bedside Glucose 119 162 Medications Medications Current Medications Acetaminophen (Tylenol Tab) 650 mg Q6H PRN PO PAIN LEVEL 1-3 OR FEVER Last administered on 07/18/16 08:28; Admin Dose 650 MG; Start 07/17/16 at 21:00 Acetaminophen/ Hydrocodone Bitart ([place] (5/325)) 1 tab Q6H PRN PO MODERATE PAIN LEVEL 4-6; Start 07/17/16 at 21:00 Morphine Sulfate (morphine) 2 mg Q4H PRN IV SEVERE PAIN LEVEL 7-10 Last administered on 07/20/16 16:47; Admin Dose 2 MG; Start 07/17/16 at 21:00 Docusate Sodium (Colace) 100 mg Q12H PRN PO CONSTIPATION; Start 07/17/16 at 21: 00 Magnesium Hydroxide (Milk Of Mag) 30 ml DAILY PRN PO CONSTIPATION; Start at 21:00 Sodium Biphosphate/ Sodium Phosphate (Fleet Enema) 133 ml DAILY PRN [place] CONSTIPATION; Start 07/17/16 at 21:00 Nitroglycerin (Nitroglycerin (Sl Tab) 0.4 Mg) 1 tab Q5M PRN SL ANGINA Last administered on 07/19/16 13:57; Admin Dose 1 TAB; Start 07/17/16 at 21:00 Isoniazid (Isoniazid) 300 mg DAILY PO Last administered on 07/25/16 08:28; Admin Dose 300 MG; Start 07/18/16 at 09:00 Pentoxifylline (Trental) 400 mg DAILY PO Last administered on 07/25/16 08:29; Admin Dose 400 MG; Start 07/18/16 at 09:00 Pyridoxine HCl (Vitamin B6) 50 mg DAILY PO Last administered on 07/25/16 08:29 ; Admin Dose 50 MG; Start 07/18/16 at 09:00 Miscellaneous Information 1 ea NOTE XX ; Start 07/18/16 at 05:30 Glucose (Glutose) 15 gm Q15M PRN PO DECREASED GLUCOSE; Start 07/18/16 at 05:30 Glucose (Glutose) 22.5 gm Q15M PRN PO DECREASED GLUCOSE; Start 07/18/16 at 05: 30 Dextrose (D50w Syringe) 25 ml Q15M PRN IV DECREASED GLUCOSE; Start 07/18/16 at 05:30 Dextrose (D50w Syringe) 50 ml Q15M PRN IV DECREASED GLUCOSE; Start 07/18/16 at 05:30 Glucagon (Glucagen) 1 mg Q15M PRN IM DECREASED GLUCOSE; Start 07/18/16 at 05:30 Glucose (Glutose) 15 gm Q15M PRN BUCCAL DECREASED GLUCOSE; Start 07/18/16 at 05 :30 Diagnostic Test (Pha) (Accucheck) 1 ea 02 XX ; Start 07/18/16 at 08:00 Metoprolol Tartrate (Lopressor) 50 mg BID PO Last administered on 07/24/16 20: 53; Admin Dose 50 MG; Start 07/19/16 at 14:00 Atorvastatin Calcium (Lipitor) 40 mg HS PO Last administered on 07/24/16 20:54 ; Admin Dose 40 MG; Start 07/19/16 at 21:00 Epoetin Lico (Epogen (Esrd)) 10,000 units TuThSa@17 SC Last administered on 17:34; Admin Dose 10,000 UNITS; Start 07/21/16 at 17:00 Aspirin (Aspirin) 81 mg DAILY PO Last administered on 07/25/16 08:28; Admin Dose 81 MG; Start 07/21/16 at 09:00 Gentamicin Sulfate (Gentamicin Iv Per Pharmacy) GENTAMICIN PER PHARMACY NOTE XX ; Start 07/20/16 at 14:30 Trimethobenzamide HCl (Tigan) 200 mg Q6H PRN IM NAUSEA AND/OR VOMITING Last administered on 07/22/16 09:53; Admin Dose 200 MG; Start 07/20/16 at 21:00 Nystatin (Nystatin Susp) 5 ml QID PO Last administered on 07/25/16 12:14; Admin Dose 5 ML; Start 07/21/16 at 17:00 Amiodarone HCl (Cordarone) 200 mg DAILY PO Last administered on 07/24/16 09:26 ; Admin Dose 200 MG; Start 07/23/16 at 09:00 Metoclopramide HCl (Reglan) 5 mg Q4 PRN IV NAUSEA AND/OR VOMITING Last administered on 07/23/16 21:38; Admin Dose 5 MG; Start 07/22/16 at 17:00 Nifedipine (Procardia Xl) 60 mg DAILY PO Last administered on 07/24/16 09:27; Admin Dose 60 MG; Start 07/23/16 at 09:30 Lisinopril (Zestril) 20 mg BID PO Last administered on 07/24/16 20:54; Admin Dose 20 MG; Start 07/23/16 at 21:00 Hydralazine HCl (Apresoline) 10 mg Q2H PRN IV ELEVATED BLOOD PRESSURE; Start at 13:00 Pantoprazole (Protonix Tab) 40 mg DAILY@06 PO Last administered on 07/25/16 05 :54; Admin Dose 40 MG; Start 07/24/16 at 06:00 Senna/Docusate Sodium (Senokot-S) 2 tab HS PO Last administered on 07/23/16 21 :26; Admin Dose 2 TAB; Start 07/23/16 at 21:00 Insulin Glargine (Lantus) 5 unit HS SC Last administered on 07/23/16 21:29; Admin Dose 5 UNIT; Start 07/23/16 at 21:00 Enoxaparin Sodium (Lovenox) 80 mg Q24H SC Last administered on 07/25/16 08:30 ; Admin Dose 80 MG; Start 07/24/16 at 09:00 TAI MENESES NP Jul 25, 2016 13:15
[2016-07-25 13:20] LABS: ADD SCAN DIFF NO
[2016-07-25 13:26] LABS: ABNORMAL IP MESSAGE 1; BASOPHILS % 0.4 % (0.0-2.0); EOSINOPHILS # 0.4 10^3/ul (0.0-0.5); EOSINOPHILS % 4.1 % (0.0-7.0); HEMATOCRIT 31.6 % (37.0-47.0); LYMPHOCYTES # 1.3 10^3/ul (0.8-2.9); LYMPHOCYTES % 13.3 % (15.0-51.0); MEAN CORPUSCULAR HEMOGLOBIN 28.8 pg (29.0-33.0); MEAN CORPUSCULAR HGB CONC 31.6 g/dl (32.0-37.0); MEAN CORPUSCULAR VOLUME 91.1 fl (82.0-101.0); MEAN PLATELET VOLUME 11.1 fl (7.4-10.4); MONOCYTE # 1.1 10^3/ul (0.3-0.9); MONOCYTES % 11.2 % (0.0-11.0); NEUTROPHIL # 6.6 10^3/ul (1.6-7.5); NEUTROPHILS % 65.9 % (39.0-77.0); PLATELET COUNT 223 10^3/UL (140-415); RED BLOOD COUNT 3.47 10^6/ul (4.20-5.40); RED CELL DISTRIBUTION WIDTH 16.4 % (11.5-14.5)
[2016-07-25] MEDS: METOCLOPRAMIDE 10 MG INJ IV PRN (17:07)
--- NOTE | 2016-07-25 17:18 | PN ---
Date/Time of Note Date/Time of Note DATE: 07/25/16 TIME: 17:12 Assessment/Plan VTE Prophylaxis VTE Prophylaxis Intervention: LMWH Lines/Catheters IV Catheter Type (from Nrs): ALBERTA CATHETER Urinary Cath still in place: No Assessment/Plan Chief Complaint/Hosp Course S: 07/24-Tired, no sleep. Had hd overnight. No dyspnea or fever. 6 beats nsvt overnight. Stress test was negative. Sp hd access placement. 07/25-nausea/'gastritis'. denies dyspnea. denies constipation. O: Vss; 6 beats nsvt noted PE: No pallor JVD Reg; no m/r/g Ctab Bs + nt nd, no r/r/g No edema; rt HD Access C/D/I A/P 1) Sepsis/ line sepsis/ serratia. sp access removal. stable, cont gent w HD. 2) ESRD/ hd; groin catheter for now. permacath when ok w ID and nephrology. Avf down the line. 3) Dm 8.0 4) Htn/ dyslipidemia- low hdl 5) Hypothyroidism 6) Anemia; stable 7) P A Fib; on amiodarone. Rx #1. Stress test negative. 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 Consider Coumadin. Appreciate vascular assistance 11) Nsvt 6 beats, replaced lytes. on bb. 12) N/gastritis? try ppi. HD may help. watch for acs. 13) CAD/ acute Mi. stable, cont medical mngmnt. Problems: Exam/Review of Systems Vital Signs Vitals Vital Signs Date Time Temp Pulse Resp B/P Pulse Ox O2 Delivery O2 Flow Rate FiO2 07/25/16 16:05 65 07/25/16 15:30 98.0 18 184/75 96 Room Air 07/24/16 19:39 2.0 Intake and Output 07/24/16 07/24/16 07/25/16 15:00 23:00 07:00 Intake Total 800 ml 700 ml Balance 800 ml 700 ml Results Result Diagram: 07/25/16 1243 07/25/16 0706 Results 24 hrs Laboratory Tests Test 07/24/16 17:14 07/24/16 20:46 07/25/16 03:08 07/25/16 07:06 Bedside Glucose 203 187 133 Sodium Level 135 Potassium Level 5.2 H Chloride Level 99 Carbon Dioxide Level 20 L Anion Gap 21 H Blood Urea Nitrogen 33 H Creatinine 6.06 H Glucose Level 99 # Calcium Level 7.9 L Phosphorus Level 5.2 H Magnesium Level 2.2 Test 07/25/16 07:32 07/25/16 11:54 07/25/16 12:43 07/25/16 16:59 Bedside Glucose 119 162 170 White Blood Count 10.0 Red Blood Count 3.47 L Hemoglobin 10.0 L Hematocrit 31.6 L Mean Corpuscular Volume 91.1 Mean Corpuscular Hemoglobin 28.8 L Mean Corpuscular Hemoglobin Concent 31.6 L Red Cell Distribution Width 16.4 H Platelet Count 223 Mean Platelet Volume 11.1 H Neutrophils % 65.9 Lymphocytes % 13.3 L Monocytes % 11.2 H Eosinophils % 4.1 Basophils % 0.4 Nucleated Red Blood Cells % 0.0 Neutrophils # 6.6 Lymphocytes # 1.3 Monocytes # 1.1 H Eosinophils # 0.4 Basophils # 0.0 Nucleated Red Blood Cells # 0.0 Medications Medications Current Medications Acetaminophen (Tylenol Tab) 650 mg Q6H PRN PO PAIN LEVEL 1-3 OR FEVER Last administered on 07/18/16 08:28; Admin Dose 650 MG; Start 07/17/16 at 21:00 Acetaminophen/ Hydrocodone Bitart ([place] (5/325)) 1 tab Q6H PRN PO MODERATE PAIN LEVEL 4-6; Start 07/17/16 at 21:00 Morphine Sulfate (morphine) 2 mg Q4H PRN IV SEVERE PAIN LEVEL 7-10 Last administered on 07/20/16 16:47; Admin Dose 2 MG; Start 07/17/16 at 21:00 Docusate Sodium (Colace) 100 mg Q12H PRN PO CONSTIPATION; Start 07/17/16 at 21: 00 Magnesium Hydroxide (Milk Of Mag) 30 ml DAILY PRN PO CONSTIPATION; Start at 21:00 Sodium Biphosphate/ Sodium Phosphate (Fleet Enema) 133 ml DAILY PRN [place] CONSTIPATION; Start 07/17/16 at 21:00 Nitroglycerin (Nitroglycerin (Sl Tab) 0.4 Mg) 1 tab Q5M PRN SL ANGINA Last administered on 07/19/16 13:57; Admin Dose 1 TAB; Start 07/17/16 at 21:00 Isoniazid (Isoniazid) 300 mg DAILY PO Last administered on 07/25/16 08:28; Admin Dose 300 MG; Start 07/18/16 at 09:00 Pentoxifylline (Trental) 400 mg DAILY PO Last administered on 07/25/16 08:29; Admin Dose 400 MG; Start 07/18/16 at 09:00 Pyridoxine HCl (Vitamin B6) 50 mg DAILY PO Last administered on 07/25/16 08:29 ; Admin Dose 50 MG; Start 07/18/16 at 09:00 Miscellaneous Information 1 ea NOTE XX ; Start 07/18/16 at 05:30 Glucose (Glutose) 15 gm Q15M PRN PO DECREASED GLUCOSE; Start 07/18/16 at 05:30 Glucose (Glutose) 22.5 gm Q15M PRN PO DECREASED GLUCOSE; Start 07/18/16 at 05: 30 Dextrose (D50w Syringe) 25 ml Q15M PRN IV DECREASED GLUCOSE; Start 07/18/16 at 05:30 Dextrose (D50w Syringe) 50 ml Q15M PRN IV DECREASED GLUCOSE; Start 07/18/16 at 05:30 Glucagon (Glucagen) 1 mg Q15M PRN IM DECREASED GLUCOSE; Start 07/18/16 at 05:30 Glucose (Glutose) 15 gm Q15M PRN BUCCAL DECREASED GLUCOSE; Start 07/18/16 at 05 :30 Diagnostic Test (Pha) (Accucheck) 1 ea 02 XX ; Start 07/18/16 at 08:00 Metoprolol Tartrate (Lopressor) 50 mg BID PO Last administered on 07/24/16 20: 53; Admin Dose 50 MG; Start 07/19/16 at 14:00 Atorvastatin Calcium (Lipitor) 40 mg HS PO Last administered on 07/24/16 20:54 ; Admin Dose 40 MG; Start 07/19/16 at 21:00 Epoetin Lico (Epogen (Esrd)) 10,000 units TuThSa@17 SC Last administered on 17:34; Admin Dose 10,000 UNITS; Start 07/21/16 at 17:00 Aspirin (Aspirin) 81 mg DAILY PO Last administered on 07/25/16 08:28; Admin Dose 81 MG; Start 07/21/16 at 09:00 Gentamicin Sulfate (Gentamicin Iv Per Pharmacy) GENTAMICIN PER PHARMACY NOTE XX ; Start 07/20/16 at 14:30 Trimethobenzamide HCl (Tigan) 200 mg Q6H PRN IM NAUSEA AND/OR VOMITING Last administered on 07/22/16 09:53; Admin Dose 200 MG; Start 07/20/16 at 21:00 Nystatin (Nystatin Susp) 5 ml QID PO Last administered on 07/25/16 12:14; Admin Dose 5 ML; Start 07/21/16 at 17:00 Amiodarone HCl (Cordarone) 200 mg DAILY PO Last administered on 07/24/16 09:26 ; Admin Dose 200 MG; Start 07/23/16 at 09:00 Metoclopramide HCl (Reglan) 5 mg Q4 PRN IV NAUSEA AND/OR VOMITING Last administered on 07/25/16 17:07; Admin Dose 5 MG; Start 07/22/16 at 17:00 Nifedipine (Procardia Xl) 60 mg DAILY PO Last administered on 07/24/16 09:27; Admin Dose 60 MG; Start 07/23/16 at 09:30 Lisinopril (Zestril) 20 mg BID PO Last administered on 07/24/16 20:54; Admin Dose 20 MG; Start 07/23/16 at 21:00 Hydralazine HCl (Apresoline) 10 mg Q2H PRN IV ELEVATED BLOOD PRESSURE; Start at 13:00 Pantoprazole (Protonix Tab) 40 mg DAILY@06 PO Last administered on 07/25/16 05 :54; Admin Dose 40 MG; Start 07/24/16 at 06:00 Senna/Docusate Sodium (Senokot-S) 2 tab HS PO Last administered on 07/23/16 21 :26; Admin Dose 2 TAB; Start 07/23/16 at 21:00 Insulin Glargine (Lantus) 5 unit HS SC Last administered on 07/23/16 21:29; Admin Dose 5 UNIT; Start 07/23/16 at 21:00 Enoxaparin Sodium (Lovenox) 80 mg Q24H SC Last administered on 07/25/16 08:30 ; Admin Dose 80 MG; Start 07/24/16 at 09:00 ELINA JOHNSON MD Jul 25, 2016 17:18
[2016-07-25] MEDS ORDERED: [UNRECOGNIZED DRUG - REMARK] XX SCH (19:30)
[2016-07-25] MEDS ORDERED: HEPARIN 1000 UNITS/ML 10 ML INJ CATHETER SCH (20:30)
[2016-07-25] MEDS: morphine 2 MG INJ IV PRN (21:10)
[2016-07-25] MEDS: ATORVASTATIN 40 MG TAB PO SCH (23:51)
[2016-07-25] MEDS: FAMOTIDINE 20 MG TAB PO SCH (23:53)
[2016-07-25] MEDS: SENNA/DOCUSATE NA (8.6MG/50MG) TAB PO SCH (23:54)
[2016-07-25] MEDS: INSULIN GLARGINE [LANtus] 3 ML PEN SC SCH (23:59)
[2016-07-26] VITALS (11 sets, daily range): BP systolic 94–180; BP diastolic 52–86; PULSE 47–64; RESP 16–20
[2016-07-26] MEDS: HYDROCODONE/APAP (5/325) TAB PO PRN (00:05)
[2016-07-26] MEDS: ACCUCHECK 2 AM XX SCH (02:00)
[2016-07-26] MEDS: hydrALAzine 20 MG INJ IV PRN (05:16)
[2016-07-26] MEDS: LEVOTHYROXINE 125 MCG TAB PO SCH (06:43)
[2016-07-26] MEDS: GENTAMICIN 80 MG/NS (PMX) 50 ML IVPB SCH (07:27)
[2016-07-26] MEDS: Insulin NOVOLOG SS MILD Algorithm (SS with meals and bedtime) SC SCH ×4 (07:30→21:04)
[2016-07-26 08:15] LABS: ADD SCAN DIFF NO
[2016-07-26 08:23] LABS: BASOPHIL # 0.1 10^3/ul (0.0-0.1); BASOPHILS % 0.8 % (0.0-2.0); EOSINOPHILS # 0.4 10^3/ul (0.0-0.5); EOSINOPHILS % 4.7 % (0.0-7.0); HEMATOCRIT 32.2 % (37.0-47.0); HEMOGLOBIN 10.3 g/dl (12.0-16.0); LYMPHOCYTES % 12.2 % (15.0-51.0); MEAN CORPUSCULAR HEMOGLOBIN 29.3 pg (29.0-33.0); MEAN CORPUSCULAR VOLUME 91.5 fl (82.0-101.0); NEUTROPHIL # 5.3 10^3/ul (1.6-7.5); NEUTROPHILS % 66.5 % (39.0-77.0); PLATELET COUNT 235 10^3/UL (140-415); RED BLOOD COUNT 3.52 10^6/ul (4.20-5.40); RED CELL DISTRIBUTION WIDTH 16.4 % (11.5-14.5); WHITE BLOOD COUNT 7.9 10^3/ul (4.8-10.8)
[2016-07-26] MEDS: CALCIUM ACETATE 667 MG CAP PO SCH ×3 (08:30→17:26)
[2016-07-26] MEDS: PENTOXIFYLLINE (SR) 400 MG TAB PO SCH (08:31)
[2016-07-26] MEDS: NIFEdipine (XL) 60 MG TAB PO SCH (08:31)
[2016-07-26 08:32] LABS: POTASSIUM 4.7 mmol/L (3.5-5.1)
[2016-07-26] MEDS: LISINOPRIL 20 MG TAB PO SCH ×2 (08:32→21:00)
[2016-07-26] MEDS: METOPROLOL 50 MG TAB PO SCH ×2 (08:32→21:00)
[2016-07-26] MEDS: NYSTATIN SUSP 5 ML CUP PO SCH ×4 (08:32→21:02)
[2016-07-26] MEDS: PANTOPRAZOLE (EC) 40 MG TAB PO SCH ×2 (08:32→21:01)
[2016-07-26] MEDS: ASPIRIN (EC) 81 MG TAB PO SCH (08:32)
[2016-07-26] MEDS: ISONIAZID 300 MG TAB PO SCH (08:32)
[2016-07-26] MEDS: PYRIDOXINE 50 MG TAB PO SCH (08:32)
[2016-07-26] MEDS: AMIODARONE 200 MG TAB PO SCH (08:32)
[2016-07-26 08:34] LABS: ALBUMIN/GLOBULIN RATIO 0.88; BILIRUBIN,INDIRECT 0.1 mg/dl (0-1.1); BILIRUBIN,TOTAL 0.1 mg/dl (0.2-1.3); CREATININE 5.32 mg/dl (0.44-1.00); TOTAL PROTEIN 6.4 g/dl (6.1-8.1)
[2016-07-26] MEDS: ENOXAPARIN 80 MG/0.8 ML SYG SC SCH (08:34)
[2016-07-26 08:35] LABS: MAGNESIUM 2.1 mg/dl (1.7-2.5); PHOSPHORUS 4.7 mg/dl (2.5-4.9)
[2016-07-26 08:48] LABS: TROPONIN-I 0.823 ng/ml (0.00-0.12)
--- NOTE | 2016-07-26 10:15 | PN ---
Date/Time of Note Date/Time of Note DATE: 07/26/16 TIME: 10:12 Assessment/Plan VTE Prophylaxis VTE Prophylaxis Intervention: LMWH Lines/Catheters IV Catheter Type (from Nrs): ALBERTA CATH Urinary Cath still in place: No Assessment/Plan Chief Complaint/Hosp Course S: 07/24-Tired, no sleep. Had hd overnight. No dyspnea or fever. 6 beats nsvt overnight. Stress test was negative. Sp hd access placement. 07/25-nausea/'gastritis'. denies dyspnea. denies constipation. 07/26-probable hematoma noted rt upper chest. Denies any dyspnea fever. Less headache nausea. Some pain right groin. O: Vss; PE: No pallor JVD Reg; no m/r/g Ctab; rt chest-hematoma? chesthematoma Bs + nt nd, no r/r/g No edema; rt HD Access C/D/I A/P 1) Sepsis/ line sepsis/ serratia. sp access removal. stable, cont gent w HD. 2) ESRD/ hd; groin catheter for now. OK now (from ID/nephro) for permacath. Avf down the line. 3) Dm 8.0 4) Htn/ dyslipidemia- low hdl 5) Hypothyroidism 6) Anemia; stable 7) P A Fib; on amiodarone. Rx #1. Stress test negative. 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 Consider asa/Coumadin. Appreciate vascular assistance 11) Nsvt 6 beats, replaced lytes. on bb. 12) N/gastritis? try ppi. HD may help. watch for acs. 13) CAD/ acute Mi. stable, cont medical mngmnt. 14) Rt chest hematoma? Problems: Exam/Review of Systems Vital Signs Vitals Vital Signs Date Time Temp Pulse Resp B/P Pulse Ox O2 Delivery O2 Flow Rate FiO2 07/26/16 08:15 64 07/26/16 07:49 98.6 20 157/63 94 07/26/16 06:19 Room Air 07/25/16 20:00 2.0 Intake and Output 07/25/16 07/25/16 07/26/16 15:00 23:00 07:00 Intake Total 1100 ml 200 ml Output Total 3400 ml 2700 ml Balance -2300 ml -2500 ml Results Result Diagram: 07/26/16 0730 07/26/16 0730 Results 24 hrs Laboratory Tests Test 07/25/16 11:54 07/25/16 12:43 07/25/16 16:59 07/25/16 23:41 Bedside Glucose 162 170 121 White Blood Count 10.0 Red Blood Count 3.47 L Hemoglobin 10.0 L Hematocrit 31.6 L Mean Corpuscular Volume 91.1 Mean Corpuscular Hemoglobin 28.8 L Mean Corpuscular Hemoglobin Concent 31.6 L Red Cell Distribution Width 16.4 H Platelet Count 223 Mean Platelet Volume 11.1 H Neutrophils % 65.9 Lymphocytes % 13.3 L Monocytes % 11.2 H Eosinophils % 4.1 Basophils % 0.4 Nucleated Red Blood Cells % 0.0 Neutrophils # 6.6 Lymphocytes # 1.3 Monocytes # 1.1 H Eosinophils # 0.4 Basophils # 0.0 Nucleated Red Blood Cells # 0.0 Test 07/26/16 07:29 07/26/16 07:30 Bedside Glucose 106 White Blood Count 7.9 # Red Blood Count 3.52 L Hemoglobin 10.3 L Hematocrit 32.2 L Mean Corpuscular Volume 91.5 Mean Corpuscular Hemoglobin 29.3 Mean Corpuscular Hemoglobin Concent 32.0 Red Cell Distribution Width 16.4 H Platelet Count 235 Mean Platelet Volume 11.0 H Neutrophils % 66.5 Lymphocytes % 12.2 L Monocytes % 12.0 H Eosinophils % 4.7 Basophils % 0.8 Nucleated Red Blood Cells % 0.0 Neutrophils # 5.3 Lymphocytes # 1.0 Monocytes # 1.0 H Eosinophils # 0.4 Basophils # 0.1 Nucleated Red Blood Cells # 0.0 Sodium Level 136 Potassium Level 4.7 Chloride Level 101 Carbon Dioxide Level 24 Anion Gap 16 Blood Urea Nitrogen 25 H Creatinine 5.32 H Glucose Level 108 Calcium Level 8.0 L Phosphorus Level 4.7 Magnesium Level 2.1 Total Bilirubin 0.1 L Direct Bilirubin 0.00 Indirect Bilirubin 0.1 Aspartate Amino Transf (AST/SGOT) 20 Alanine Aminotransferase (ALT/SGPT) 20 Alkaline Phosphatase 147 H Troponin I 0.823 *H Total Protein 6.4 Albumin 3.0 L Globulin 3.40 H Albumin/Globulin Ratio 0.88 Medications Medications Current Medications Acetaminophen (Tylenol Tab) 650 mg Q6H PRN PO PAIN LEVEL 1-3 OR FEVER Last administered on 07/18/16 08:28; Admin Dose 650 MG; Start 07/17/16 at 21:00 Acetaminophen/ Hydrocodone Bitart ([place] (5/325)) 1 tab Q6H PRN PO MODERATE PAIN LEVEL 4-6 Last administered on 07/26/16 00:05; Admin Dose 1 TAB; Start at 21:00 Morphine Sulfate (morphine) 2 mg Q4H PRN IV SEVERE PAIN LEVEL 7-10 Last administered on 07/25/16 21:10; Admin Dose 2 MG; Start 07/17/16 at 21:00 Docusate Sodium (Colace) 100 mg Q12H PRN PO CONSTIPATION; Start 07/17/16 at 21: 00 Magnesium Hydroxide (Milk Of Mag) 30 ml DAILY PRN PO CONSTIPATION; Start at 21:00 Sodium Biphosphate/ Sodium Phosphate (Fleet Enema) 133 ml DAILY PRN [place] CONSTIPATION; Start 07/17/16 at 21:00 Nitroglycerin (Nitroglycerin (Sl Tab) 0.4 Mg) 1 tab Q5M PRN SL ANGINA Last administered on 07/19/16 13:57; Admin Dose 1 TAB; Start 07/17/16 at 21:00 Isoniazid (Isoniazid) 300 mg DAILY PO Last administered on 07/26/16 08:32; Admin Dose 300 MG; Start 07/18/16 at 09:00 Pentoxifylline (Trental) 400 mg DAILY PO Last administered on 07/26/16 08:31; Admin Dose 400 MG; Start 07/18/16 at 09:00 Pyridoxine HCl (Vitamin B6) 50 mg DAILY PO Last administered on 07/26/16 08:32 ; Admin Dose 50 MG; Start 07/18/16 at 09:00 Miscellaneous Information 1 ea NOTE XX ; Start 07/18/16 at 05:30 Glucose (Glutose) 15 gm Q15M PRN PO DECREASED GLUCOSE; Start 07/18/16 at 05:30 Glucose (Glutose) 22.5 gm Q15M PRN PO DECREASED GLUCOSE; Start 07/18/16 at 05: 30 Dextrose (D50w Syringe) 25 ml Q15M PRN IV DECREASED GLUCOSE; Start 07/18/16 at 05:30 Dextrose (D50w Syringe) 50 ml Q15M PRN IV DECREASED GLUCOSE; Start 07/18/16 at 05:30 Glucagon (Glucagen) 1 mg Q15M PRN IM DECREASED GLUCOSE; Start 07/18/16 at 05:30 Glucose (Glutose) 15 gm Q15M PRN BUCCAL DECREASED GLUCOSE; Start 07/18/16 at 05 :30 Diagnostic Test (Pha) (Accucheck) 1 ea 02 XX ; Start 07/18/16 at 08:00 Metoprolol Tartrate (Lopressor) 50 mg BID PO Last administered on 07/26/16 08: 32; Admin Dose 50 MG; Start 07/19/16 at 14:00 Atorvastatin Calcium (Lipitor) 40 mg HS PO Last administered on 07/25/16 23:51 ; Admin Dose 40 MG; Start 07/19/16 at 21:00 Epoetin Lico (Epogen (Esrd)) 10,000 units TuThSa@17 SC Last administered on 17:34; Admin Dose 10,000 UNITS; Start 07/21/16 at 17:00 Gentamicin Sulfate (Gentamicin Iv Per Pharmacy) GENTAMICIN PER PHARMACY NOTE XX ; Start 07/20/16 at 14:30 Trimethobenzamide HCl (Tigan) 200 mg Q6H PRN IM NAUSEA AND/OR VOMITING Last administered on 07/22/16 09:53; Admin Dose 200 MG; Start 07/20/16 at 21:00 Nystatin (Nystatin Susp) 5 ml QID PO Last administered on 07/26/16 08:32; Admin Dose 5 ML; Start 07/21/16 at 17:00 Amiodarone HCl (Cordarone) 200 mg DAILY PO Last administered on 07/26/16 08:32 ; Admin Dose 200 MG; Start 07/23/16 at 09:00 Metoclopramide HCl (Reglan) 5 mg Q4 PRN IV NAUSEA AND/OR VOMITING Last administered on 07/25/16 17:07; Admin Dose 5 MG; Start 07/22/16 at 17:00 Nifedipine (Procardia Xl) 60 mg DAILY PO Last administered on 07/26/16 08:31; Admin Dose 60 MG; Start 07/23/16 at 09:30 Lisinopril (Zestril) 20 mg BID PO Last administered on 07/26/16 08:32; Admin Dose 20 MG; Start 07/23/16 at 21:00 Hydralazine HCl (Apresoline) 10 mg Q2H PRN IV ELEVATED BLOOD PRESSURE Last administered on 07/26/16 05:16; Admin Dose 10 MG; Start 07/23/16 at 13:00 Senna/Docusate Sodium (Senokot-S) 2 tab HS PO Last administered on 07/25/16 23 :54; Admin Dose 2 TAB; Start 07/23/16 at 21:00 Insulin Glargine (Lantus) 5 unit HS SC Last administered on 07/25/16 23:59; Admin Dose 5 UNIT; Start 07/23/16 at 21:00 Enoxaparin Sodium (Lovenox) 80 mg Q24H SC Last administered on 07/26/16 08:34 ; Admin Dose 80 MG; Start 07/24/16 at 09:00 Pantoprazole (Protonix Tab) 40 mg BID PO Last administered on 07/26/16 08:32; Admin Dose 40 MG; Start 07/25/16 at 21:00 Aspirin (Halfprin) 81 mg DAILY PO Last administered on 07/26/16 08:32; Admin Dose 81 MG; Start 07/26/16 at 09:00 Famotidine (Pepcid) 40 mg HS PO Last administered on 07/25/16 23:53; Admin Dose 40 MG; Start 07/25/16 at 21:00 ELINA JOHNSON MD Jul 26, 2016 10:15
--- NOTE | 2016-07-26 11:25 | PN ---
DATE: 07/26/2016 SUBJECTIVE: The patient is stable at hemodialysis yesterday. No other events noted. No fevers, ch ills, nausea, vomiting. OBJECTIVE: VITAL SIGNS: Blood pressure is 157/60, respiratory rate 20, pulse 68, temperature 98.6. I's AND O'S: The patient had 1300 in, 2.7 liters out. HEENT: Head is normocephalic. NECK: Supple. HEART: Regular rate. LUNGS: Show diminished breath sounds at the base. ABDOMEN: Soft, nontender to palpation without rebound or guarding. EXTREMITIES: Negative for clubbing, cyanosis. No edema. DERMATOLOGIC: No rashes. MUSCULOSKELETAL: No joint effusions. NEUROLOGIC: No change in exam. MEDICATIONS: Reviewed. LABORATORY DATA: Shows sodium 136, potassium 4.7, chloride 101, BUN 25, creatinine 5.32. White cou nt 7.9, hemoglobin 10.3, hematocrit 32.2, platelet count is 235. ASSESSMENT AND PLAN: 1. End-stage renal disease. The patient had dialysis yesterday. Plan for dialysis again tomorrow for 3 hours, 2K bath, calcium 2.5. 2. Sepsis secondary to line infection. Patient is clinically improved. The patient is completing antibiotic course. 3. Access. The patient currently has a [place] catheter. I spoke with the primary care physician , Dr. Diggs, that the patient is okay for PermCath placement. 4. Hypertension, improved. Continue current blood pressure regimen. 5. Anemia of chronic disease. Continue to monitor hemoglobin and hematocrit levels. Continue Epog en. 6. Mineral bone disorder. Continue to monitor calcium and phosphorus levels. Continue phos binder s. 7. Diabetes. Continue Accu-Cheks and insulin sliding scale. 8. Atrial fibrillation, rate controlled. Continue medical management. 9. Nonsustained ventricular tachycardia, improved. Continue to monitor. Dictated By: LY LOPEZ DO NR/NTS Conf#: [id number] DID#: [id number] CC: LUIS ENRIQUE STOKES;*EndCC*
--- NOTE | 2016-07-26 14:44 | PN ---
DATE: 07/26/2016 INFECTIOUS DISEASE PROGRESS NOTE SUBJECTIVE: No acute changes. The patient is lying comfortably in bed. No fevers. WBC 7.9. No shift. MICROBIOLOGY: Repeat blood cultures since 07/19/2016 remain negative. ANTIMICROBIALS: The patient is on gentamicin. INDWELLINGS: Right femoral [place]. PHYSICAL EXAMINATION: GENERAL: A well-developed, elderly, woman, who is in no distress. HEENT: Head atraumatic, normocephalic. Sclerae anicteric. Buccal mucosa dry. NECK: Supple. CHEST: Chest rise is symmetrical. Breath sounds diminished to the bases. HEART: S1, S2. ABDOMEN: Soft. Bowel tones present. EXTREMITIES: Without cyanosis. SKIN: Patient has pain at the right upper chest catheter site, with some swelling, possible hematom a. No drainage. ASSESSMENT: 1. Resolving sepsis. 2. Status post Serratia marcescens bacteremia. Right chest Perm-A-Cath was discontinued. 3. End-stage renal disease. 4. Possible old hematoma at right chest catheter site. 5. Anemia. 6. Oral candidiasis. 7. Diabetes. PLAN: The patient remains stable. She is being seen by Dr. Segundo in vascular consultation. We will keep her on the current antibiotics to complete treatment for bacteremia. Await for new Perm- Cath, monitor right chest wall old catheter site for infection. Dictated By: TAI MENESES [employer] TECHNICIAN for ARIEL HARRISON MD NI/NTS Conf#: [id number] DID#: [id number]
--- NOTE | 2016-07-26 15:39 | CONS ---
Date/Time of Note Date/Time of Note DATE: 07/26/16 TIME: 15:36 Assessment/Plan Assessment/Plan Additional Assessment/Plan Paroxysmal atrial fibrillation with rapid ventricular rates, currently sinus rhythm Elevated troponin Preserved ejection fraction Sepsis with gram-negative bacteremia Acute blood loss anemia End-stage renal disease on hemodialysis Diabetes -Blood pressure remains elevated, would increase dose of Procardia. Patient remains in sinus rhythm. No further episodes of atrial fibrillation since initial event. No anticoagulation at the current time given patient plan for multiple procedures. Continue amiodarone to maintain in sinus rhythm. Consultation Date/Type/Reason Admit Date/Time Jul 17, 2016 at 20:10 Type of Consultation: cv 24 HR Interval Summary Free Text/Dictation Patient denies shortness of breath, chest pain or palpitations Exam/Review of Systems Vital Signs Vitals Vital Signs Date Time Temp Pulse Resp B/P Pulse Ox O2 Delivery O2 Flow Rate FiO2 07/26/16 12:22 61 07/26/16 11:54 98.0 20 156/71 94 07/26/16 06:19 Room Air 07/25/16 20:00 2.0 Intake and Output 07/25/16 07/25/16 07/26/16 15:00 23:00 07:00 Intake Total 1100 ml 200 ml Output Total 3400 ml 2700 ml Balance -2300 ml -2500 ml Exam No apparent distress Constitutional: alert, oriented Head: normocephalic Neck: supple Respiratory: other (Coarse breath sounds bilaterally, no wheezing) Cardiovascular: other (S1-S2 heard), regular rate and rhythm Gastrointestinal: bowel sounds, non-tender, other (No guarding), soft Extremities: edema (Trace), other (No cyanosis) Results Result Diagram: 07/26/16 0730 07/26/16 0730 Results 24 hrs Laboratory Tests Test 07/25/16 16:59 07/25/16 23:41 07/26/16 07:29 07/26/16 07:30 Bedside Glucose 170 121 106 White Blood Count 7.9 # Red Blood Count 3.52 L Hemoglobin 10.3 L Hematocrit 32.2 L Mean Corpuscular Volume 91.5 Mean Corpuscular Hemoglobin 29.3 Mean Corpuscular Hemoglobin Concent 32.0 Red Cell Distribution Width 16.4 H Platelet Count 235 Mean Platelet Volume 11.0 H Neutrophils % 66.5 Lymphocytes % 12.2 L Monocytes % 12.0 H Eosinophils % 4.7 Basophils % 0.8 Nucleated Red Blood Cells % 0.0 Neutrophils # 5.3 Lymphocytes # 1.0 Monocytes # 1.0 H Eosinophils # 0.4 Basophils # 0.1 Nucleated Red Blood Cells # 0.0 Sodium Level 136 Potassium Level 4.7 Chloride Level 101 Carbon Dioxide Level 24 Anion Gap 16 Blood Urea Nitrogen 25 H Creatinine 5.32 H Glucose Level 108 Calcium Level 8.0 L Phosphorus Level 4.7 Magnesium Level 2.1 Total Bilirubin 0.1 L Direct Bilirubin 0.00 Indirect Bilirubin 0.1 Aspartate Amino Transf (AST/SGOT) 20 Alanine Aminotransferase (ALT/SGPT) 20 Alkaline Phosphatase 147 H Troponin I 0.823 *H Total Protein 6.4 Albumin 3.0 L Globulin 3.40 H Albumin/Globulin Ratio 0.88 Test 07/26/16 11:48 Bedside Glucose 175 Medications Medications Current Medications Acetaminophen (Tylenol Tab) 650 mg Q6H PRN PO PAIN LEVEL 1-3 OR FEVER Last administered on 07/18/16 08:28; Admin Dose 650 MG; Start 07/17/16 at 21:00 Acetaminophen/ Hydrocodone Bitart ([place] (5/325)) 1 tab Q6H PRN PO MODERATE PAIN LEVEL 4-6 Last administered on 07/26/16 00:05; Admin Dose 1 TAB; Start at 21:00 Morphine Sulfate (morphine) 2 mg Q4H PRN IV SEVERE PAIN LEVEL 7-10 Last administered on 07/25/16 21:10; Admin Dose 2 MG; Start 07/17/16 at 21:00 Docusate Sodium (Colace) 100 mg Q12H PRN PO CONSTIPATION; Start 07/17/16 at 21: 00 Magnesium Hydroxide (Milk Of Mag) 30 ml DAILY PRN PO CONSTIPATION; Start at 21:00 Sodium Biphosphate/ Sodium Phosphate (Fleet Enema) 133 ml DAILY PRN [place] CONSTIPATION; Start 07/17/16 at 21:00 Nitroglycerin (Nitroglycerin (Sl Tab) 0.4 Mg) 1 tab Q5M PRN SL ANGINA Last administered on 07/19/16 13:57; Admin Dose 1 TAB; Start 07/17/16 at 21:00 Isoniazid (Isoniazid) 300 mg DAILY PO Last administered on 07/26/16 08:32; Admin Dose 300 MG; Start 07/18/16 at 09:00 Pentoxifylline (Trental) 400 mg DAILY PO Last administered on 07/26/16 08:31; Admin Dose 400 MG; Start 07/18/16 at 09:00 Pyridoxine HCl (Vitamin B6) 50 mg DAILY PO Last administered on 07/26/16 08:32 ; Admin Dose 50 MG; Start 07/18/16 at 09:00 Miscellaneous Information 1 ea NOTE XX ; Start 07/18/16 at 05:30 Glucose (Glutose) 15 gm Q15M PRN PO DECREASED GLUCOSE; Start 07/18/16 at 05:30 Glucose (Glutose) 22.5 gm Q15M PRN PO DECREASED GLUCOSE; Start 07/18/16 at 05: 30 Dextrose (D50w Syringe) 25 ml Q15M PRN IV DECREASED GLUCOSE; Start 07/18/16 at 05:30 Dextrose (D50w Syringe) 50 ml Q15M PRN IV DECREASED GLUCOSE; Start 07/18/16 at 05:30 Glucagon (Glucagen) 1 mg Q15M PRN IM DECREASED GLUCOSE; Start 07/18/16 at 05:30 Glucose (Glutose) 15 gm Q15M PRN BUCCAL DECREASED GLUCOSE; Start 07/18/16 at 05 :30 Diagnostic Test (Pha) (Accucheck) 1 ea 02 XX ; Start 07/18/16 at 08:00 Metoprolol Tartrate (Lopressor) 50 mg BID PO Last administered on 07/26/16 08: 32; Admin Dose 50 MG; Start 07/19/16 at 14:00 Atorvastatin Calcium (Lipitor) 40 mg HS PO Last administered on 07/25/16 23:51 ; Admin Dose 40 MG; Start 07/19/16 at 21:00 Epoetin Lico (Epogen (Esrd)) 10,000 units TuThSa@17 SC Last administered on 17:34; Admin Dose 10,000 UNITS; Start 07/21/16 at 17:00 Gentamicin Sulfate (Gentamicin Iv Per Pharmacy) GENTAMICIN PER PHARMACY NOTE XX ; Start 07/20/16 at 14:30 Trimethobenzamide HCl (Tigan) 200 mg Q6H PRN IM NAUSEA AND/OR VOMITING Last administered on 07/22/16 09:53; Admin Dose 200 MG; Start 07/20/16 at 21:00 Nystatin (Nystatin Susp) 5 ml QID PO Last administered on 07/26/16 12:18; Admin Dose 5 ML; Start 07/21/16 at 17:00 Amiodarone HCl (Cordarone) 200 mg DAILY PO Last administered on 07/26/16 08:32 ; Admin Dose 200 MG; Start 07/23/16 at 09:00 Metoclopramide HCl (Reglan) 5 mg Q4 PRN IV NAUSEA AND/OR VOMITING Last administered on 07/25/16 17:07; Admin Dose 5 MG; Start 07/22/16 at 17:00 Nifedipine (Procardia Xl) 60 mg DAILY PO Last administered on 07/26/16 08:31; Admin Dose 60 MG; Start 07/23/16 at 09:30 Lisinopril (Zestril) 20 mg BID PO Last administered on 07/26/16 08:32; Admin Dose 20 MG; Start 07/23/16 at 21:00 Hydralazine HCl (Apresoline) 10 mg Q2H PRN IV ELEVATED BLOOD PRESSURE Last administered on 07/26/16 05:16; Admin Dose 10 MG; Start 07/23/16 at 13:00 Senna/Docusate Sodium (Senokot-S) 2 tab HS PO Last administered on 07/25/16 23 :54; Admin Dose 2 TAB; Start 07/23/16 at 21:00 Insulin Glargine (Lantus) 5 unit HS SC Last administered on 07/25/16 23:59; Admin Dose 5 UNIT; Start 07/23/16 at 21:00 Enoxaparin Sodium (Lovenox) 80 mg Q24H SC Last administered on 07/26/16 08:34 ; Admin Dose 80 MG; Start 07/24/16 at 09:00 Pantoprazole (Protonix Tab) 40 mg BID PO Last administered on 07/26/16 08:32; Admin Dose 40 MG; Start 07/25/16 at 21:00 Aspirin (Halfprin) 81 mg DAILY PO Last administered on 07/26/16 08:32; Admin Dose 81 MG; Start 07/26/16 at 09:00 Famotidine (Pepcid) 40 mg HS PO Last administered on 07/25/16 23:53; Admin Dose 40 MG; Start 07/25/16 at 21:00 Filipe Silveira DO Jul 26, 2016 15:39
--- NOTE | 2016-07-26 18:01 | PN ---
Date/Time of Note Date/Time of Note DATE: 07/26/16 TIME: 17:58 Assessment/Plan Lines/Catheters IV Catheter Type (from [facility]): ALBERTA CATH [place] in Place (from [facility]): No Assessment/Plan Chief Complaint/Hosp Course -End-stage renal disease: It seems the patient has bacteremia and sepsis. Upon her fever workup, it could be related to her permanent catheter as the source. S/P emergent removal of her perm catheter. S/P [place] catheter placement -It seems the patient had a cardiac event. Will await for eventual clearance for for fistula creation. -Can schedule for a perm catheter placement, once her blood cultures come back negative and no concern for infection is identified. -Optimize vascular status (blood pressure, meds, diet, nutrition, exercise, sugar control, antiplatelets). -Discussed findings, plan, and management with the patient with a certified film flat inspector and they understand. -Thank you for allowing us to partake in the care of your patient. Please call with any questions. Problems: Subjective 24 Hr Interval Summary no new vascular issues overnight Exam/Review of Systems Vital Signs Vitals Vital Signs Date Time Temp Pulse Resp B/P Pulse Ox O2 Delivery O2 Flow Rate FiO2 07/26/16 16:10 47 07/26/16 15:49 98.2 20 101/54 94 07/26/16 06:19 Room Air 07/25/16 20:00 2.0 Intake and Output 07/25/16 07/25/16 07/26/16 15:00 23:00 07:00 Intake Total 1100 ml 200 ml Output Total 3400 ml 2700 ml Balance -2300 ml -2500 ml Exam Free Text/Dictation GENERAL: Alert and oriented x3, PULMONARY: Clear to auscultation bilaterally. some swelling at the previous catheter site CARDIOVASCULAR: S1, S2 present. ABDOMEN: Soft, nontender, nondistended. Bowel sounds positive. Truncal obesity. EXTREMITIES: Right lower extremity: Palpable femoral pulse, [place] catheter intact, nonpalpable pedal pulse. Motor, sensory intact. Cap refill 3 seconds. No ulcers or edema. Left lower extremity: Palpable femoral pulse, nonpalpable pedal pulse. Motor, sensory intact. Cap refill 3 to 4 seconds. No edema. Bilateral upper extremities: Palpable brachial pulse. Motor, sensory intact. Cap refill 2 to 3 seconds. No surgical scars. Results Result Diagram: 07/26/16 0730 07/26/16 0730 ABEL HEARD MD Jul 26, 2016 18:01
[2016-07-26] MEDS: EPOETIN 10000 UNITS/1 ML INJ (ESRD) SC SCH (18:11)
[2016-07-26] MEDS: ATORVASTATIN 40 MG TAB PO SCH (21:01)
[2016-07-26] MEDS: FAMOTIDINE 20 MG TAB PO SCH (21:02)
[2016-07-26] MEDS: SENNA/DOCUSATE NA (8.6MG/50MG) TAB PO SCH (21:02)
[2016-07-26] MEDS: INSULIN GLARGINE [LANtus] 3 ML PEN SC SCH (22:51)
[2016-07-27] VITALS (26 sets, daily range): BP systolic 115–177; BP diastolic 58–89; PULSE 6–69; RESP 15–22
[2016-07-27] MEDS: ACCUCHECK 2 AM XX SCH (02:00)
[2016-07-27] MEDS: LEVOTHYROXINE 125 MCG TAB PO SCH (06:15)
[2016-07-27] MEDS: ACETAMINOPHEN 325 MG TAB PO PRN (06:39)
[2016-07-27 07:14] LABS: ADD SCAN DIFF NO
[2016-07-27 07:21] LABS: BASOPHILS % 0.2 % (0.0-2.0); EOSINOPHILS # 0.3 10^3/ul (0.0-0.5); EOSINOPHILS % 2.9 % (0.0-7.0); HEMATOCRIT 31.3 % (37.0-47.0); HEMOGLOBIN 9.9 g/dl (12.0-16.0); LYMPHOCYTES % 11.4 % (15.0-51.0); MEAN CORPUSCULAR HEMOGLOBIN 29.2 pg (29.0-33.0); MEAN CORPUSCULAR HGB CONC 31.6 g/dl (32.0-37.0); MEAN CORPUSCULAR VOLUME 92.3 fl (82.0-101.0); MEAN PLATELET VOLUME 11.1 fl (7.4-10.4); MONOCYTES % 11.5 % (0.0-11.0); NEUTROPHIL # 6.2 10^3/ul (1.6-7.5); NEUTROPHILS % 71.8 % (39.0-77.0); PLATELET COUNT 224 10^3/UL (140-415); RED BLOOD COUNT 3.39 10^6/ul (4.20-5.40); RED CELL DISTRIBUTION WIDTH 16.9 % (11.5-14.5); WHITE BLOOD COUNT 8.7 10^3/ul (4.8-10.8)
[2016-07-27 07:37] LABS: POTASSIUM 5.1 mmol/L (3.5-5.1)
[2016-07-27 07:38] LABS: INR 1.05; PROTIME 13.7 Sec (12.2-14.2); PT RATIO 1.1
[2016-07-27 07:39] LABS: CREATININE 6.61 mg/dl (0.44-1.00)
[2016-07-27 07:40] LABS: CALCIUM 8.1 mg/dl (8.4-10.2); MAGNESIUM 2.1 mg/dl (1.7-2.5); PHOSPHORUS 6.1 mg/dl (2.5-4.9)
[2016-07-27] MEDS: ENOXAPARIN 80 MG/0.8 ML SYG SC SCH (08:04)
[2016-07-27] MEDS: INSULIN ASPART [NOVOLOG] 3 ML PEN SC SCH ×4 (08:05→20:16)
[2016-07-27] MEDS: NYSTATIN SUSP 5 ML CUP PO SCH ×4 (08:42→20:06)
[2016-07-27] MEDS: CALCIUM ACETATE 667 MG CAP PO SCH ×3 (08:42→17:30)
[2016-07-27] MEDS: PYRIDOXINE 50 MG TAB PO SCH (08:42)
[2016-07-27] MEDS: ASPIRIN (EC) 81 MG TAB PO SCH (08:42)
[2016-07-27] MEDS: NIFEdipine (XL) 90 MG TAB PO SCH (08:43)
[2016-07-27] MEDS: LISINOPRIL 20 MG TAB PO SCH ×2 (08:43→20:06)
[2016-07-27] MEDS: AMIODARONE 200 MG TAB PO SCH (08:43)
[2016-07-27] MEDS: PENTOXIFYLLINE (SR) 400 MG TAB PO SCH (08:44)
[2016-07-27] MEDS: METOPROLOL 50 MG TAB PO SCH ×2 (08:44→20:07)
[2016-07-27] MEDS: PANTOPRAZOLE (EC) 40 MG TAB PO SCH ×2 (08:44→20:06)
--- NOTE | 2016-07-27 10:19 | PN ---
DATE: 07/27/2016 SUBJECTIVE: The patient is stable, no acute distress. No fevers, chills, nausea, vomiting. OBJECTIVE: VITAL SIGNS: Blood pressure 166/77, respiratory rate 20, pulse 64, temperature 98.2. HEENT: Head is normocephalic. NECK: Supple. HEART: Regular rate. LUNGS: Show diminished breath sounds at the base. ABDOMEN: Soft, nontender to palpation without rebound or guarding. EXTREMITIES: Negative for clubbing, cyanosis, edema. DERMATOLOGIC: No rashes. MUSCULOSKELETAL: No joint effusions. NEUROLOGIC: No change in exam. MEDICATIONS: Patient's medications have been reviewed. LABORATORY DATA: Shows sodium 136, potassium 5.1, BUN is 32, creatinine 6.61. White count 8.7, hem oglobin 9.9, hematocrit 31.2, platelet count is 224. ASSESSMENT AND PLAN: 1. End-stage renal disease. Patient scheduled for dialysis today for 3 hours, 2K bath, calcium 2.5 , ultrafiltrate as tolerated. 2. Sepsis secondary to line infection, improved. The patient is completing antibiotic course. 3. Access. The patient has a [place] catheter. A Perm catheter may be placed by Dr. Segundo whe n available. 4. Hypertension. Continue current blood pressure regimen. 5. Anemia of chronic disease. Continue to monitor hemoglobin and hematocrit levels. Continue Epog en. 6. Mineral bone disorder. Continue to monitor calcium and phosphorus levels. Continue phos binders . 7. Diabetes. Continue Accu-Cheks and insulin sliding scale. 8. Atrial fibrillation, rate controlled. Continue medical management. Dictated By: LY MENDEZ/FADUMO Conf#: [id number] DID#: [id number]
--- NOTE | 2016-07-27 11:46 | CONS ---
Date/Time of Note Date/Time of Note DATE: 07/27/16 TIME: 11:44 Assessment/Plan Assessment/Plan Additional Assessment/Plan Paroxysmal atrial fibrillation with rapid ventricular rates, currently sinus rhythm Elevated troponin with negative nuclear cardiac perfusion study 07/23/2016 Preserved ejection fraction Sepsis with gram-negative bacteremia Acute blood loss anemia End-stage renal disease on hemodialysis Diabetes -Blood pressure improved with increased dose of Procardia. Patient remains in sinus rhythm. No further episodes of atrial fibrillation since initial event. No anticoagulation at the current time given patient plan for multiple procedures. Continue amiodarone to maintain in sinus rhythm. Consultation Date/Type/Reason Admit Date/Time Jul 17, 2016 at 20:10 Type of Consultation: cv 24 HR Interval Summary Free Text/Dictation Denies shortness of breath, chest pain or palpitations. Undergoing hemodialysis Exam/Review of Systems Vital Signs Vitals Vital Signs Date Time Temp Pulse Resp B/P Pulse Ox O2 Delivery O2 Flow Rate FiO2 07/27/16 11:15 68 07/27/16 09:30 18 07/27/16 07:49 98.2 166/77 96 07/27/16 04:00 Room Air 07/26/16 20:00 2.0 Intake and Output 07/26/16 07/26/16 07/27/16 15:00 23:00 07:00 Intake Total 720 ml 220 ml Balance 720 ml 220 ml Exam No apparent distress, undergoing hemodialysis Constitutional: alert, oriented Head: normocephalic Neck: supple Respiratory: other (Coarse breath sounds bilaterally, no wheezing) Cardiovascular: other (S1-S2 heard), regular rate and rhythm Gastrointestinal: bowel sounds, non-tender, other (No guarding), soft Extremities: other (Trace edema, no cyanosis) Results Result Diagram: 07/27/16 0649 07/27/16 0649 Results 24 hrs Laboratory Tests Test 07/26/16 11:48 07/26/16 16:58 07/26/16 21:00 07/27/16 02:11 Bedside Glucose 175 145 224 H 141 Test 07/27/16 06:49 07/27/16 07:49 07/27/16 11:31 White Blood Count 8.7 Red Blood Count 3.39 L Hemoglobin 9.9 L Hematocrit 31.3 L Mean Corpuscular Volume 92.3 Mean Corpuscular Hemoglobin 29.2 Mean Corpuscular Hemoglobin Concent 31.6 L Red Cell Distribution Width 16.9 H Platelet Count 224 Mean Platelet Volume 11.1 H Neutrophils % 71.8 Lymphocytes % 11.4 L Monocytes % 11.5 H Eosinophils % 2.9 Basophils % 0.2 Nucleated Red Blood Cells % 0.0 Neutrophils # 6.2 Lymphocytes # 1.0 Monocytes # 1.0 H Eosinophils # 0.3 Basophils # 0.0 Nucleated Red Blood Cells # 0.0 Prothrombin Time 13.7 Prothrombin Time Ratio 1.1 INR International Normalized Ratio 1.05 Sodium Level 136 Potassium Level 5.1 Chloride Level 99 Carbon Dioxide Level 24 Anion Gap 18 H Blood Urea Nitrogen 32 H Creatinine 6.61 H Glucose Level 151 Calcium Level 8.1 L Phosphorus Level 6.1 H Magnesium Level 2.1 Bedside Glucose 130 115 Medications Medications Current Medications Acetaminophen (Tylenol Tab) 650 mg Q6H PRN PO PAIN LEVEL 1-3 OR FEVER Last administered on 07/27/16 06:39; Admin Dose 650 MG; Start 07/17/16 at 21:00 Acetaminophen/ Hydrocodone Bitart ([place] (5/325)) 1 tab Q6H PRN PO MODERATE PAIN LEVEL 4-6 Last administered on 07/26/16 00:05; Admin Dose 1 TAB; Start at 21:00 Morphine Sulfate (morphine) 2 mg Q4H PRN IV SEVERE PAIN LEVEL 7-10 Last administered on 07/25/16 21:10; Admin Dose 2 MG; Start 07/17/16 at 21:00 Docusate Sodium (Colace) 100 mg Q12H PRN PO CONSTIPATION; Start 07/17/16 at 21: 00 Magnesium Hydroxide (Milk Of Mag) 30 ml DAILY PRN PO CONSTIPATION; Start at 21:00 Sodium Biphosphate/ Sodium Phosphate (Fleet Enema) 133 ml DAILY PRN [place] CONSTIPATION; Start 07/17/16 at 21:00 Nitroglycerin (Nitroglycerin (Sl Tab) 0.4 Mg) 1 tab Q5M PRN SL ANGINA Last administered on 07/19/16 13:57; Admin Dose 1 TAB; Start 07/17/16 at 21:00 Isoniazid (Isoniazid) 300 mg DAILY PO Last administered on 07/26/16 08:32; Admin Dose 300 MG; Start 07/18/16 at 09:00 Pentoxifylline (Trental) 400 mg DAILY PO Last administered on 07/27/16 08:44; Admin Dose 400 MG; Start 07/18/16 at 09:00 Pyridoxine HCl (Vitamin B6) 50 mg DAILY PO Last administered on 07/27/16 08:42 ; Admin Dose 50 MG; Start 07/18/16 at 09:00 Miscellaneous Information 1 ea NOTE XX ; Start 07/18/16 at 05:30 Glucose (Glutose) 15 gm Q15M PRN PO DECREASED GLUCOSE; Start 07/18/16 at 05:30 Glucose (Glutose) 22.5 gm Q15M PRN PO DECREASED GLUCOSE; Start 07/18/16 at 05: 30 Dextrose (D50w Syringe) 25 ml Q15M PRN IV DECREASED GLUCOSE; Start 07/18/16 at 05:30 Dextrose (D50w Syringe) 50 ml Q15M PRN IV DECREASED GLUCOSE; Start 07/18/16 at 05:30 Glucagon (Glucagen) 1 mg Q15M PRN IM DECREASED GLUCOSE; Start 07/18/16 at 05:30 Glucose (Glutose) 15 gm Q15M PRN BUCCAL DECREASED GLUCOSE; Start 07/18/16 at 05 :30 Diagnostic Test (Pha) (Accucheck) 1 ea 02 XX ; Start 07/18/16 at 08:00 Metoprolol Tartrate (Lopressor) 50 mg BID PO Last administered on 07/27/16 08: 44; Admin Dose 50 MG; Start 07/19/16 at 14:00 Atorvastatin Calcium (Lipitor) 40 mg HS PO Last administered on 07/26/16 21:01 ; Admin Dose 40 MG; Start 07/19/16 at 21:00 Epoetin Lico (Epogen (Esrd)) 10,000 units TuThSa@17 SC Last administered on 18:11; Admin Dose 10,000 UNITS; Start 07/21/16 at 17:00 Gentamicin Sulfate (Gentamicin Iv Per Pharmacy) GENTAMICIN PER PHARMACY NOTE XX ; Start 07/20/16 at 14:30 Trimethobenzamide HCl (Tigan) 200 mg Q6H PRN IM NAUSEA AND/OR VOMITING Last administered on 07/22/16 09:53; Admin Dose 200 MG; Start 07/20/16 at 21:00 Nystatin (Nystatin Susp) 5 ml QID PO Last administered on 07/27/16 08:42; Admin Dose 5 ML; Start 07/21/16 at 17:00 Amiodarone HCl (Cordarone) 200 mg DAILY PO Last administered on 07/27/16 08:43 ; Admin Dose 200 MG; Start 07/23/16 at 09:00 Metoclopramide HCl (Reglan) 5 mg Q4 PRN IV NAUSEA AND/OR VOMITING Last administered on 07/25/16 17:07; Admin Dose 5 MG; Start 07/22/16 at 17:00 Lisinopril (Zestril) 20 mg BID PO Last administered on 07/27/16 08:43; Admin Dose 20 MG; Start 07/23/16 at 21:00 Hydralazine HCl (Apresoline) 10 mg Q2H PRN IV ELEVATED BLOOD PRESSURE Last administered on 07/26/16 05:16; Admin Dose 10 MG; Start 07/23/16 at 13:00 Senna/Docusate Sodium (Senokot-S) 2 tab HS PO Last administered on 07/26/16 21 :02; Admin Dose 2 TAB; Start 07/23/16 at 21:00 Insulin Glargine (Lantus) 5 unit HS SC Last administered on 07/26/16 22:51; Admin Dose 5 UNIT; Start 07/23/16 at 21:00 Enoxaparin Sodium (Lovenox) 80 mg Q24H SC Last administered on 07/26/16 08:34 ; Admin Dose 80 MG; Start 07/24/16 at 09:00 Pantoprazole (Protonix Tab) 40 mg BID PO Last administered on 07/27/16 08:44; Admin Dose 40 MG; Start 07/25/16 at 21:00 Aspirin (Halfprin) 81 mg DAILY PO Last administered on 07/27/16 08:42; Admin Dose 81 MG; Start 07/26/16 at 09:00 Famotidine (Pepcid) 40 mg HS PO Last administered on 07/26/16 21:02; Admin Dose 40 MG; Start 07/25/16 at 21:00 Nifedipine (Procardia Xl) 90 mg DAILY PO Last administered on 07/27/16 08:43; Admin Dose 90 MG; Start 07/27/16 at 09:00 Insulin Aspart (Novolog Insulin Pen) NPO (Adult SC Insulin - Mild Algorithm)... Q4 SC ; Start 07/27/16 at 09:00 Filipe Silveira DO Jul 27, 2016 11:45
--- NOTE | 2016-07-27 12:07 | PN ---
Date/Time of Note Date/Time of Note DATE: 07/27/16 TIME: 12:03 Assessment/Plan VTE Prophylaxis VTE Prophylaxis Intervention: contraindicated (Bleeding risk) Lines/Catheters IV Catheter Type (from Nrs): [place] Cath Urinary Cath still in place: No Assessment/Plan Chief Complaint/Hosp Course S: 07/24-Tired, no sleep. Had hd overnight. No dyspnea or fever. 6 beats nsvt overnight. Stress test was negative. Sp hd access placement. 07/25-nausea/'gastritis'. denies dyspnea. denies constipation. 07/26-probable hematoma noted rt upper chest. Denies any dyspnea fever. Less headache nausea. Some pain right groin. 07/27-mechanical fall yesterday late evening when getting out of bed. Nonfocal no injuries. Low BP post HD? No fevers chills eating well. Right chest less uncomfortable. O: Vss; PE: No pallor JVD Reg; no m/r/g Ctab; rt chest-hematoma? BS + nt nd, no r/r/g No edema; rt HD Access C/D/I A/P 1) Sepsis/ line sepsis/ serratia. sp access removal. stable, cont gent w HD. 2) ESRD/ hd; groin catheter removal soon. For permacath today. Avf down the line. 3) Dm 8.0 4) Htn/ dyslipidemia- low hdl 5) Hypothyroidism 6) Anemia; stable 7) P A Fib; on amiodarone. (tsh/lft's/ophthal down the line). Rx #1. Stress test -ve. 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 Consider asa/Coumadin. Appreciate vascular assistance 11) Nsvt 6 beats, replaced lytes. on bb. 12) N/gastritis? uremia/ improved.trying ppi. watch for acs. 13) CAD/ acute Mi. stable, cont medical mngmnt. asa. 14) Rt chest hematoma? 15) Mechanical fall, home safety PT and DME on discharge. Will check orthostatics soon. Problems: Exam/Review of Systems Vital Signs Vitals Vital Signs Date Time Temp Pulse Resp B/P Pulse Ox O2 Delivery O2 Flow Rate FiO2 07/27/16 11:50 98.2 57 18 161/72 94 07/27/16 04:00 Room Air 07/26/16 20:00 2.0 Intake and Output 07/26/16 07/26/16 07/27/16 15:00 23:00 07:00 Intake Total 720 ml 220 ml Balance 720 ml 220 ml Results Result Diagram: 07/27/16 0649 07/27/16 0649 Results 24 hrs Laboratory Tests Test 07/26/16 16:58 07/26/16 21:00 07/27/16 02:11 07/27/16 06:49 Bedside Glucose 145 224 H 141 White Blood Count 8.7 Red Blood Count 3.39 L Hemoglobin 9.9 L Hematocrit 31.3 L Mean Corpuscular Volume 92.3 Mean Corpuscular Hemoglobin 29.2 Mean Corpuscular Hemoglobin Concent 31.6 L Red Cell Distribution Width 16.9 H Platelet Count 224 Mean Platelet Volume 11.1 H Neutrophils % 71.8 Lymphocytes % 11.4 L Monocytes % 11.5 H Eosinophils % 2.9 Basophils % 0.2 Nucleated Red Blood Cells % 0.0 Neutrophils # 6.2 Lymphocytes # 1.0 Monocytes # 1.0 H Eosinophils # 0.3 Basophils # 0.0 Nucleated Red Blood Cells # 0.0 Prothrombin Time 13.7 Prothrombin Time Ratio 1.1 INR International Normalized Ratio 1.05 Sodium Level 136 Potassium Level 5.1 Chloride Level 99 Carbon Dioxide Level 24 Anion Gap 18 H Blood Urea Nitrogen 32 H Creatinine 6.61 H Glucose Level 151 Calcium Level 8.1 L Phosphorus Level 6.1 H Magnesium Level 2.1 Test 07/27/16 07:49 07/27/16 11:31 Bedside Glucose 130 115 Medications Medications Current Medications Acetaminophen (Tylenol Tab) 650 mg Q6H PRN PO PAIN LEVEL 1-3 OR FEVER Last administered on 07/27/16 06:39; Admin Dose 650 MG; Start 07/17/16 at 21:00 Acetaminophen/ Hydrocodone Bitart ([place] (5/325)) 1 tab Q6H PRN PO MODERATE PAIN LEVEL 4-6 Last administered on 07/26/16 00:05; Admin Dose 1 TAB; Start at 21:00 Morphine Sulfate (morphine) 2 mg Q4H PRN IV SEVERE PAIN LEVEL 7-10 Last administered on 07/25/16 21:10; Admin Dose 2 MG; Start 07/17/16 at 21:00 Docusate Sodium (Colace) 100 mg Q12H PRN PO CONSTIPATION; Start 07/17/16 at 21: 00 Magnesium Hydroxide (Milk Of Mag) 30 ml DAILY PRN PO CONSTIPATION; Start at 21:00 Sodium Biphosphate/ Sodium Phosphate (Fleet Enema) 133 ml DAILY PRN HI CONSTIPATION; Start 07/17/16 at 21:00 Nitroglycerin (Nitroglycerin (Sl Tab) 0.4 Mg) 1 tab Q5M PRN SL ANGINA Last administered on 07/19/16 13:57; Admin Dose 1 TAB; Start 07/17/16 at 21:00 Isoniazid (Isoniazid) 300 mg DAILY PO Last administered on 07/26/16 08:32; Admin Dose 300 MG; Start 07/18/16 at 09:00 Pentoxifylline (Trental) 400 mg DAILY PO Last administered on 07/27/16 08:44; Admin Dose 400 MG; Start 07/18/16 at 09:00 Pyridoxine HCl (Vitamin B6) 50 mg DAILY PO Last administered on 07/27/16 08:42 ; Admin Dose 50 MG; Start 07/18/16 at 09:00 Miscellaneous Information 1 ea NOTE XX ; Start 07/18/16 at 05:30 Glucose (Glutose) 15 gm Q15M PRN PO DECREASED GLUCOSE; Start 07/18/16 at 05:30 Glucose (Glutose) 22.5 gm Q15M PRN PO DECREASED GLUCOSE; Start 07/18/16 at 05: 30 Dextrose (D50w Syringe) 25 ml Q15M PRN IV DECREASED GLUCOSE; Start 07/18/16 at 05:30 Dextrose (D50w Syringe) 50 ml Q15M PRN IV DECREASED GLUCOSE; Start 07/18/16 at 05:30 Glucagon (Glucagen) 1 mg Q15M PRN IM DECREASED GLUCOSE; Start 07/18/16 at 05:30 Glucose (Glutose) 15 gm Q15M PRN BUCCAL DECREASED GLUCOSE; Start 07/18/16 at 05 :30 Diagnostic Test (Pha) (Accucheck) 1 ea 02 XX ; Start 07/18/16 at 08:00 Metoprolol Tartrate (Lopressor) 50 mg BID PO Last administered on 07/27/16 08: 44; Admin Dose 50 MG; Start 07/19/16 at 14:00 Atorvastatin Calcium (Lipitor) 40 mg HS PO Last administered on 07/26/16 21:01 ; Admin Dose 40 MG; Start 07/19/16 at 21:00 Epoetin Lico (Epogen (Esrd)) 10,000 units TuThSa@17 SC Last administered on 18:11; Admin Dose 10,000 UNITS; Start 07/21/16 at 17:00 Gentamicin Sulfate (Gentamicin Iv Per Pharmacy) GENTAMICIN PER PHARMACY NOTE XX ; Start 07/20/16 at 14:30 Trimethobenzamide HCl (Tigan) 200 mg Q6H PRN IM NAUSEA AND/OR VOMITING Last administered on 07/22/16 09:53; Admin Dose 200 MG; Start 07/20/16 at 21:00 Nystatin (Nystatin Susp) 5 ml QID PO Last administered on 07/27/16 08:42; Admin Dose 5 ML; Start 07/21/16 at 17:00 Amiodarone HCl (Cordarone) 200 mg DAILY PO Last administered on 07/27/16 08:43 ; Admin Dose 200 MG; Start 07/23/16 at 09:00 Metoclopramide HCl (Reglan) 5 mg Q4 PRN IV NAUSEA AND/OR VOMITING Last administered on 07/25/16 17:07; Admin Dose 5 MG; Start 07/22/16 at 17:00 Lisinopril (Zestril) 20 mg BID PO Last administered on 07/27/16 08:43; Admin Dose 20 MG; Start 07/23/16 at 21:00 Hydralazine HCl (Apresoline) 10 mg Q2H PRN IV ELEVATED BLOOD PRESSURE Last administered on 07/26/16 05:16; Admin Dose 10 MG; Start 07/23/16 at 13:00 Senna/Docusate Sodium (Senokot-S) 2 tab HS PO Last administered on 07/26/16 21 :02; Admin Dose 2 TAB; Start 07/23/16 at 21:00 Insulin Glargine (Lantus) 5 unit HS SC Last administered on 07/26/16 22:51; Admin Dose 5 UNIT; Start 07/23/16 at 21:00 Enoxaparin Sodium (Lovenox) 80 mg Q24H SC Last administered on 07/26/16 08:34 ; Admin Dose 80 MG; Start 07/24/16 at 09:00 Pantoprazole (Protonix Tab) 40 mg BID PO Last administered on 07/27/16 08:44; Admin Dose 40 MG; Start 07/25/16 at 21:00 Aspirin (Halfprin) 81 mg DAILY PO Last administered on 07/27/16 08:42; Admin Dose 81 MG; Start 07/26/16 at 09:00 Famotidine (Pepcid) 40 mg HS PO Last administered on 07/26/16 21:02; Admin Dose 40 MG; Start 07/25/16 at 21:00 Nifedipine (Procardia Xl) 90 mg DAILY PO Last administered on 07/27/16 08:43; Admin Dose 90 MG; Start 07/27/16 at 09:00 Insulin Aspart (Novolog Insulin Pen) NPO (Adult SC Insulin - Mild Algorithm)... Q4 SC ; Start 07/27/16 at 09:00 ELINA JOHNSON MD Jul 27, 2016 12:07
[2016-07-27] MEDS ORDERED: CEFAZOLIN 1 GM/50 ML (PMX) 50 ML IVPB ONE (12:11)
[2016-07-27] MEDS ORDERED: HEPARIN 1000 UNITS/ML 10 ML INJ ONE (12:11)
[2016-07-27] MEDS ORDERED: MIDAZOLAM 1 MG/ML 2 ML INJ ONE (12:12)
[2016-07-27] MEDS ORDERED: SOD CHLORIDE 0.9% 500 ML ONE ×2 (12:12→20:59)
[2016-07-27] MEDS ORDERED: FENTAnyl 50 MCG/ML VIAL ONE (12:12)
--- NOTE | 2016-07-27 13:01 | CONS ---
Date/Time of Note Date/Time of Note DATE: 07/27/16 TIME: 12:59 Assessment/Plan Assessment/Plan Chief Complaint/Hosp Course SUBJECTIVE: No acute changes. The patient is lying comfortably in bed. No fevers. MICROBIOLOGY: Repeat blood cultures since 07/19/2016 remain negative. ANTIMICROBIALS: The patient is on gentamicin. INDWELLINGS: Right femoral [place]. PHYSICAL EXAMINATION: GENERAL: A well-developed, elderly, woman, who is in no distress. HEENT: Head atraumatic, normocephalic. Sclerae anicteric. Buccal mucosa dry. NECK: Supple. CHEST: Chest rise is symmetrical. Breath sounds diminished to the bases. HEART: S1, S2. ABDOMEN: Soft. Bowel tones present. EXTREMITIES: Without cyanosis. SKIN: Patient has pain at the right upper chest catheter site, with some swelling, possible hematoma. No drainage. ASSESSMENT: 1. Resolving sepsis. 2. Status post Serratia marcescens bacteremia. Right chest Perm-A-Cath was discontinued. 3. End-stage renal disease. 4. Possible old hematoma at right chest catheter site. 5. Anemia. 6. Oral candidiasis. 7. Diabetes. PLAN: The patient remains stable. Continue abx for 5 more days, pending new Perm-Cath DW staff Problems: Consultation Date/Type/Reason Admit Date/Time Jul 17, 2016 at 20:10 Type of Consultation: id Exam/Review of Systems Vital Signs Vitals Vital Signs Date Time Temp Pulse Resp B/P Pulse Ox O2 Delivery O2 Flow Rate FiO2 07/27/16 11:50 98.2 57 18 161/72 94 07/27/16 04:00 Room Air 07/26/16 20:00 2.0 Intake and Output 07/26/16 07/26/16 07/27/16 15:00 23:00 07:00 Intake Total 720 ml 220 ml Balance 720 ml 220 ml Results Result Diagram: 07/27/16 0649 07/27/16 0649 Results 24 hrs Laboratory Tests Test 07/26/16 16:58 07/26/16 21:00 07/27/16 02:11 07/27/16 06:49 Bedside Glucose 145 224 H 141 White Blood Count 8.7 Red Blood Count 3.39 L Hemoglobin 9.9 L Hematocrit 31.3 L Mean Corpuscular Volume 92.3 Mean Corpuscular Hemoglobin 29.2 Mean Corpuscular Hemoglobin Concent 31.6 L Red Cell Distribution Width 16.9 H Platelet Count 224 Mean Platelet Volume 11.1 H Neutrophils % 71.8 Lymphocytes % 11.4 L Monocytes % 11.5 H Eosinophils % 2.9 Basophils % 0.2 Nucleated Red Blood Cells % 0.0 Neutrophils # 6.2 Lymphocytes # 1.0 Monocytes # 1.0 H Eosinophils # 0.3 Basophils # 0.0 Nucleated Red Blood Cells # 0.0 Prothrombin Time 13.7 Prothrombin Time Ratio 1.1 INR International Normalized Ratio 1.05 Sodium Level 136 Potassium Level 5.1 Chloride Level 99 Carbon Dioxide Level 24 Anion Gap 18 H Blood Urea Nitrogen 32 H Creatinine 6.61 H Glucose Level 151 Calcium Level 8.1 L Phosphorus Level 6.1 H Magnesium Level 2.1 Test 07/27/16 07:49 07/27/16 11:31 Bedside Glucose 130 115 Medications Medications Current Medications Acetaminophen (Tylenol Tab) 650 mg Q6H PRN PO PAIN LEVEL 1-3 OR FEVER Last administered on 07/27/16 06:39; Admin Dose 650 MG; Start 07/17/16 at 21:00 Acetaminophen/ Hydrocodone Bitart ([place] (5/325)) 1 tab Q6H PRN PO MODERATE PAIN LEVEL 4-6 Last administered on 07/26/16 00:05; Admin Dose 1 TAB; Start at 21:00 Morphine Sulfate (morphine) 2 mg Q4H PRN IV SEVERE PAIN LEVEL 7-10 Last administered on 07/25/16 21:10; Admin Dose 2 MG; Start 07/17/16 at 21:00 Docusate Sodium (Colace) 100 mg Q12H PRN PO CONSTIPATION; Start 07/17/16 at 21: 00 Magnesium Hydroxide (Milk Of Mag) 30 ml DAILY PRN PO CONSTIPATION; Start at 21:00 Sodium Biphosphate/ Sodium Phosphate (Fleet Enema) 133 ml DAILY PRN DC CONSTIPATION; Start 07/17/16 at 21:00 Nitroglycerin (Nitroglycerin (Sl Tab) 0.4 Mg) 1 tab Q5M PRN SL ANGINA Last administered on 07/19/16 13:57; Admin Dose 1 TAB; Start 07/17/16 at 21:00 Isoniazid (Isoniazid) 300 mg DAILY PO Last administered on 07/26/16 08:32; Admin Dose 300 MG; Start 07/18/16 at 09:00 Pentoxifylline (Trental) 400 mg DAILY PO Last administered on 07/27/16 08:44; Admin Dose 400 MG; Start 07/18/16 at 09:00 Pyridoxine HCl (Vitamin B6) 50 mg DAILY PO Last administered on 07/27/16 08:42 ; Admin Dose 50 MG; Start 07/18/16 at 09:00 Miscellaneous Information 1 ea NOTE XX ; Start 07/18/16 at 05:30 Glucose (Glutose) 15 gm Q15M PRN PO DECREASED GLUCOSE; Start 07/18/16 at 05:30 Glucose (Glutose) 22.5 gm Q15M PRN PO DECREASED GLUCOSE; Start 07/18/16 at 05: 30 Dextrose (D50w Syringe) 25 ml Q15M PRN IV DECREASED GLUCOSE; Start 07/18/16 at 05:30 Dextrose (D50w Syringe) 50 ml Q15M PRN IV DECREASED GLUCOSE; Start 07/18/16 at 05:30 Glucagon (Glucagen) 1 mg Q15M PRN IM DECREASED GLUCOSE; Start 07/18/16 at 05:30 Glucose (Glutose) 15 gm Q15M PRN BUCCAL DECREASED GLUCOSE; Start 07/18/16 at 05 :30 Diagnostic Test (Pha) (Accucheck) 1 ea 02 XX ; Start 07/18/16 at 08:00 Metoprolol Tartrate (Lopressor) 50 mg BID PO Last administered on 07/27/16 08: 44; Admin Dose 50 MG; Start 07/19/16 at 14:00 Atorvastatin Calcium (Lipitor) 40 mg HS PO Last administered on 07/26/16 21:01 ; Admin Dose 40 MG; Start 07/19/16 at 21:00 Epoetin Lico (Epogen (Esrd)) 10,000 units TuThSa@17 SC Last administered on 18:11; Admin Dose 10,000 UNITS; Start 07/21/16 at 17:00 Gentamicin Sulfate (Gentamicin Iv Per Pharmacy) GENTAMICIN PER PHARMACY NOTE XX ; Start 07/20/16 at 14:30 Trimethobenzamide HCl (Tigan) 200 mg Q6H PRN IM NAUSEA AND/OR VOMITING Last administered on 07/22/16 09:53; Admin Dose 200 MG; Start 07/20/16 at 21:00 Nystatin (Nystatin Susp) 5 ml QID PO Last administered on 07/27/16 08:42; Admin Dose 5 ML; Start 07/21/16 at 17:00 Amiodarone HCl (Cordarone) 200 mg DAILY PO Last administered on 07/27/16 08:43 ; Admin Dose 200 MG; Start 07/23/16 at 09:00 Metoclopramide HCl (Reglan) 5 mg Q4 PRN IV NAUSEA AND/OR VOMITING Last administered on 07/25/16 17:07; Admin Dose 5 MG; Start 07/22/16 at 17:00 Lisinopril (Zestril) 20 mg BID PO Last administered on 07/27/16 08:43; Admin Dose 20 MG; Start 07/23/16 at 21:00 Hydralazine HCl (Apresoline) 10 mg Q2H PRN IV ELEVATED BLOOD PRESSURE Last administered on 07/26/16 05:16; Admin Dose 10 MG; Start 07/23/16 at 13:00 Senna/Docusate Sodium (Senokot-S) 2 tab HS PO Last administered on 07/26/16 21 :02; Admin Dose 2 TAB; Start 07/23/16 at 21:00 Insulin Glargine (Lantus) 5 unit HS SC Last administered on 07/26/16 22:51; Admin Dose 5 UNIT; Start 07/23/16 at 21:00 Enoxaparin Sodium (Lovenox) 80 mg Q24H SC Last administered on 07/26/16 08:34 ; Admin Dose 80 MG; Start 07/24/16 at 09:00 Pantoprazole (Protonix Tab) 40 mg BID PO Last administered on 07/27/16 08:44; Admin Dose 40 MG; Start 07/25/16 at 21:00 Aspirin (Halfprin) 81 mg DAILY PO Last administered on 07/27/16 08:42; Admin Dose 81 MG; Start 07/26/16 at 09:00 Famotidine (Pepcid) 40 mg HS PO Last administered on 07/26/16 21:02; Admin Dose 40 MG; Start 07/25/16 at 21:00 Nifedipine (Procardia Xl) 90 mg DAILY PO Last administered on 07/27/16 08:43; Admin Dose 90 MG; Start 07/27/16 at 09:00 Insulin Aspart (Novolog Insulin Pen) NPO (Adult SC Insulin - Mild Algorithm)... Q4 SC ; Start 07/27/16 at 09:00 TAI MENESES NP Jul 27, 2016 13:01
--- NOTE | 2016-07-27 14:00 | RADRPT ---
PROCEDURE: PLACEMENT OF LEFT INTERNAL JUGULAR VENOUS TUNNELED DIALYSIS CATHETER. CLINICAL INDICATION: Renal failure. TECHNIQUE: Prior to the procedure, informed consent was obtained. Risks including bleeding, infection, and pneu mothorax were explained to the patient. The patient understood and was willing to proceed. A procedu ral pause was performed. The patient's name, date of , and procedure to be performed were verif ied. The left neck and anterior/superior chest wall was prepped and draped in usual sterile fashion. The central line was inserted with all elements of maximal sterile barrier technique. All of the fol lowing were used: head covering, facial mask, sterile gown, sterile gloves, a large sterile sheet, h and hygiene, and 2% chlorhexidine for cutaneous antisepsis. Limited sonography of the left neck was then performed. Noted is a patent left internal jugular vein . Following the local injection of Xylocaine, the left internal jugular vein was punctured under sonog raphic guidance with a 20-gauge needle through which a 0.018 inch floppy tip guidewire was advanced into the superior vena cava. The tract was dilated to 5 Malagasy and the wire was then replaced with a 0.035 in Amplatz guidewire. A tunnel was then created from the anterior lateral aspect of the supe rior left chest wall to the puncture site in the neck and the catheter was pulled through the tract. Serial dilatation was then performed and a 16 Malagasy peel away sheath was introduced. The 14.5 Malagasy [employer] BioFlo DuraMax dialysis catheter was advanced through the 16 Malagasy pe el-away sheath. The tip of the catheter was confirmed in position within the right atrium. The peel- away sheath was removed. The 2 ports were each flushed with 2.5 ml of 1:1000 heparin. The catheter was secured to the skin w ith 2-0 silk. The wound in the neck was closed with 4-0 Vicryl suture using subcuticular running te chnique. The site was dressed. The patient tolerated the procedure well. The existing temporary dialysis catheter in the right femoral vein was then removed. Pressure was a pplied for 10 minutes and adequate hemostasis was obtained. COMPARISON: None. FINDINGS: Final images demonstrate the tip of the catheter in the upper right atrium. A total of 0.4 minutes of fluoroscopy time was used. IMPRESSION: 1. Percutaneous insertion of left internal jugular dialysis tunneled dialysis catheter under fluoros copic and sonographic guidance. 2. The temporary dialysis catheter in the right femoral vein was removed. RPTAT: QQ .Kvng Ching MD, Date Time Electronically viewed and signed by .Kvng Ching MD, on 07/27/2016 14:00 .R/
--- NOTE | 2016-07-27 14:05 | RADRPT ---
PROCEDURE: Ultrasound guidance for placement of needle in left internal jugular vein. CLINICAL INDICATION: Venous access. TECHNIQUE: Prior to the procedure, informed consent was obtained. Risks including bleeding, infection, and pneu mothorax were explained to the patient. The patient understood and was willing to proceed. A procedu ral pause was performed. The patient's name, date of , and procedure to be performed were verif ied. The central line was inserted with all elements of maximal sterile barrier technique. All of th e following were used: head covering, facial mask, sterile gown, sterile gloves, a large sterile she et, hand hygiene, and 2% chlorhexidine for cutaneous antisepsis. The left neck and anterior/superi or chest wall was prepped and draped in usual sterile fashion. Limited sonography of the left neck was then performed. Noted is a patent left internal jugular vein . Ultrasound images were recorded and stored in the patient's medical record. Following the local injection of Xylocaine, the left internal jugular vein was punctured under sonog raphic guidance with a 20-gauge needle through which a 0.018 inch floppy tip guidewire was advanced into the superior vena cava. The patient tolerated the procedure well. The remainder of the proced ure was performed and dictated under separate cover. COMPARISON: None. FINDINGS: The ultrasound images demonstrate a patent left internal jugular vein. The subsequent images demons trate the needle entering the left internal jugular vein. IMPRESSION: 1. Ultrasound guidance for a needle placement in left internal jugular vein. RPTAT: QQ .Kvng Ching MD, Date Time Electronically viewed and signed by .Kvng Ching MD, on 07/27/2016 14:04 .R/
[2016-07-27] MEDS: ISONIAZID 300 MG TAB PO SCH (14:17)
[2016-07-27] MEDS ORDERED: [UNRECOGNIZED DRUG - REMARK] XX SCH (20:00)
[2016-07-27] MEDS: ATORVASTATIN 40 MG TAB PO SCH (20:06)
[2016-07-27] MEDS: FAMOTIDINE 20 MG TAB PO SCH (20:06)
[2016-07-27] MEDS: SENNA/DOCUSATE NA (8.6MG/50MG) TAB PO SCH (20:07)
[2016-07-27] MEDS: INSULIN GLARGINE [LANtus] 3 ML PEN SC SCH (20:14)
[2016-07-27] MEDS: GENTAMICIN 80 MG/NS (PMX) 50 ML IVPB SCH (21:56)
[2016-07-28] VITALS (12 sets, daily range): BP systolic 135–161; BP diastolic 56–85; PULSE 55–61; RESP 19
[2016-07-28] MEDS: ACCUCHECK 2 AM XX SCH (02:18)
[2016-07-28 06:12] LABS: ADD SCAN DIFF NO
[2016-07-28] MEDS: LEVOTHYROXINE 125 MCG TAB PO SCH (06:13)
[2016-07-28 06:14] LABS: BASOPHILS % 0.3 % (0.0-2.0); EOSINOPHILS # 0.2 10^3/ul (0.0-0.5); EOSINOPHILS % 1.6 % (0.0-7.0); LYMPHOCYTES % 8.9 % (15.0-51.0); MEAN CORPUSCULAR HEMOGLOBIN 29.9 pg (29.0-33.0); MEAN CORPUSCULAR HGB CONC 32.3 g/dl (32.0-37.0); MEAN CORPUSCULAR VOLUME 92.5 fl (82.0-101.0); MEAN PLATELET VOLUME 11.1 fl (7.4-10.4); MONOCYTE # 1.3 10^3/ul (0.3-0.9); MONOCYTES % 11.6 % (0.0-11.0); NEUTROPHIL # 8.8 10^3/ul (1.6-7.5); NEUTROPHILS % 76.5 % (39.0-77.0); PLATELET COUNT 249 10^3/UL (140-415); RED BLOOD COUNT 3.35 10^6/ul (4.20-5.40); WHITE BLOOD COUNT 11.5 10^3/ul (4.8-10.8)
[2016-07-28 06:27] LABS: POTASSIUM 5.5 mmol/L (3.5-5.1)
[2016-07-28 06:30] LABS: CREATININE 6.18 mg/dl (0.44-1.00)
[2016-07-28 06:31] LABS: CALCIUM 8.1 mg/dl (8.4-10.2)
[2016-07-28] MEDS: INSULIN ASPART [NOVOLOG] 3 ML PEN SC SCH ×4 (08:00→22:16)
[2016-07-28] MEDS: METOPROLOL 50 MG TAB PO SCH ×2 (09:00→22:13)
[2016-07-28] MEDS: ASPIRIN (EC) 81 MG TAB PO SCH (09:10)
[2016-07-28] MEDS: AMIODARONE 200 MG TAB PO SCH (09:12)
[2016-07-28] MEDS: LISINOPRIL 20 MG TAB PO SCH ×2 (09:12→22:16)
[2016-07-28] MEDS: CALCIUM ACETATE 667 MG CAP PO SCH ×3 (09:12→17:50)
[2016-07-28] MEDS: PANTOPRAZOLE (EC) 40 MG TAB PO SCH (09:12)
[2016-07-28] MEDS: NYSTATIN SUSP 5 ML CUP PO SCH ×5 (09:12→22:14)
[2016-07-28] MEDS: ENOXAPARIN 80 MG/0.8 ML SYG SC SCH (09:14)
[2016-07-28] MEDS: NIFEdipine (XL) 90 MG TAB PO SCH (10:32)
[2016-07-28] MEDS: PYRIDOXINE 50 MG TAB PO SCH (10:39)
[2016-07-28] MEDS: PENTOXIFYLLINE (SR) 400 MG TAB PO SCH (10:40)
[2016-07-28] MEDS: ISONIAZID 300 MG TAB PO SCH (10:40)
[2016-07-28] MEDS: HYDROCODONE/APAP (5/325) TAB PO PRN (10:40)
--- NOTE | 2016-07-28 11:17 | PN ---
DATE: SUBJECTIVE: The patient is stable, had hemodialysis yesterday. The patient is complaining about he r catheter. The patient is complaining of pain at the catheter site. Had a Perm-A-Cath placed yest erday. No other events noted. OBJECTIVE: VITAL SIGNS: Blood pressure 140/66, respirations 19, pulse 59, temperature 98.8. HEENT: Head is normocephalic. NECK: Supple. HEART: Regular rate. CHEST: Has a Perm-A-Cath in the left upper wall. Dressing is clean, dry and intact. There is mild tenderness on palpation. ABDOMEN: Soft, nontender to palpation without rebound or guarding. LUNGS: Show diminished breath sounds at base, otherwise clear. EXTREMITIES: Negative for clubbing, cyanosis, no edema. DERMATOLOGIC: No rashes. MUSCULOSKELETAL: No joint effusions. NEUROLOGIC: No change in exam. MEDICATIONS: The patient's medications have been reviewed. LABORATORY DATA: Showed sodium 134, potassium 5.5, BUN 32, creatinine 6.18, calcium 8.1. White cou nt 11.5, hemoglobin 10.0, hematocrit 31.0, platelet count is 249. IMAGING: The patient's chest x-ray was reviewed. ASSESSMENT AND PLAN: 1. End-stage renal disease. The patient had a Perm-A-Cath yesterday. Plan for dialysis today for 3 hours on 2 K bath, calcium 2.5, will ultrafiltrate as tolerated. 2. Hyperkalemia secondary to end-stage renal disease. The patient will be dialyzed on 2 potassium bath. 3. Sepsis secondary to line infection, improved. Patient is completing antibiotic course. 4. Access. The patient has Perm-A-Cath placement. There is mild tenderness around Perm-A-Cath sit e. Will give pain medication and monitor closely. 5. Hypertension. Continue current blood pressure regimen. 6. Anemia of chronic disease. Continue to monitor hemoglobin and hematocrit levels. Continue Epog en. 7. Mineral bone disorder, continue to monitor calcium and phosphorus levels. Continue phosphate bi nders. 8. Diabetes. Continue Accu-Cheks and insulin sliding scale. 9. Atrial fibrillation, rate controlled. Continue medical management. Dictated By: LY LOPEZ DO NR/NTS Conf#: [id number] DID#: [id number]
--- NOTE | 2016-07-28 15:01 | PN ---
Date/Time of Note Date/Time of Note DATE: 07/28/16 TIME: 14:58 Assessment/Plan VTE Prophylaxis VTE Prophylaxis Intervention: LMWH Lines/Catheters IV Catheter Type (from Nrs): Saline Lock Urinary Cath still in place: No Assessment/Plan Chief Complaint/Hosp Course S: 07/24-Tired, no sleep. Had hd overnight. No dyspnea or fever. 6 beats nsvt overnight. Stress test was negative. Sp hd access placement. 07/25-nausea/'gastritis'. denies dyspnea. denies constipation. 07/26-probable hematoma noted rt upper chest. Denies any dyspnea fever. Less headache nausea. Some pain right groin. 07/27-mechanical fall yesterday late evening when getting out of bed. Nonfocal no injuries. Low BP post HD? No fevers chills eating well. Right chest less uncomfortable. 07/28- sp dialysis catheter placement. Pain at surgical site. No jian dyspnea chest pain. Appetite little poor. I spoke with her regarding anticipated discharge home tomorrow and asked her to ambulate more. O: Vss; PE: No pallor JVD. HD Access C/D/I Reg; no m/r/g Ctab; rt chest-hematoma?Stable or improved BS + nt nd, no r/r/g No edema; rt HD Access C/D/I A/P 1) Sepsis/ line sepsis/ serratia. sp access removal. stable, cont gent w HD. 2) ESRD/ hd; groin catheter removed. sp permacath. Avf down the line. 3) Dm 8.0 4) Htn/ dyslipidemia- low hdl 5) Hypothyroidism 6) Anemia; stable 7) P A Fib; on amiodarone. (tsh/lft's/ophthal down the line). Rx #1. Stress test -ve. 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 Consider asa/Coumadin. Appreciate vascular assistance 11) Nsvt 6 beats, replaced lytes. on bb. 12) N/gastritis? uremia/ improved.trying ppi. watch for acs. 13) CAD/ acute Mi. stable, cont medical mngmnt. asa. 14) Rt chest hematoma? 15) Mechanical fall, home safety PT and DME on discharge. Will check orthostatics soon. Discharge home if ok w nephro and IV antibiotics w dialysis arranged for about 3 more days. Problems: Exam/Review of Systems Vital Signs Vitals Vital Signs Date Time Temp Pulse Resp B/P Pulse Ox O2 Delivery O2 Flow Rate FiO2 07/28/16 10:50 58 138/65 07/28/16 08:34 98.8 19 92 Room Air 07/27/16 13:30 2.0 Intake and Output 07/27/16 07/27/16 07/28/16 15:00 23:00 07:00 Intake Total 600 ml 750 ml 250 ml Output Total 1900 ml Balance -1300 ml 750 ml 250 ml Results Result Diagram: 07/28/1652207/28/16 05 Results 24 hrs Laboratory Tests Test 07/27/16 17:14 07/27/16 20:12 07/28/16 02:06 07/28/16 05:23 Bedside Glucose 213 160 139 White Blood Count 11.5 #H Red Blood Count 3.35 L Hemoglobin 10.0 L Hematocrit 31.0 L Mean Corpuscular Volume 92.5 Mean Corpuscular Hemoglobin 29.9 Mean Corpuscular Hemoglobin Concent 32.3 Red Cell Distribution Width 17.0 H Platelet Count 249 Mean Platelet Volume 11.1 H Neutrophils % 76.5 Lymphocytes % 8.9 L Monocytes % 11.6 H Eosinophils % 1.6 Basophils % 0.3 Nucleated Red Blood Cells % 0.0 Neutrophils # 8.8 H Lymphocytes # 1.0 Monocytes # 1.3 H Eosinophils # 0.2 Basophils # 0.0 Nucleated Red Blood Cells # 0.0 Sodium Level 134 L Potassium Level 5.5 H Chloride Level 98 Carbon Dioxide Level 26 Anion Gap 16 Blood Urea Nitrogen 32 H Creatinine 6.18 H Glucose Level 114 Calcium Level 8.1 L Test 07/28/16 07:43 07/28/16 11:37 Bedside Glucose 107 136 Medications Medications Current Medications Acetaminophen (Tylenol Tab) 650 mg Q6H PRN PO PAIN LEVEL 1-3 OR FEVER Last administered on 07/27/16 06:39; Admin Dose 650 MG; Start 07/17/16 at 21:00 Acetaminophen/ Hydrocodone Bitart ([place] (5/325)) 1 tab Q6H PRN PO MODERATE PAIN LEVEL 4-6 Last administered on 07/28/16 10:40; Admin Dose 1 TAB; Start at 21:00 Morphine Sulfate (morphine) 2 mg Q4H PRN IV SEVERE PAIN LEVEL 7-10 Last administered on 07/25/16 21:10; Admin Dose 2 MG; Start 07/17/16 at 21:00 Docusate Sodium (Colace) 100 mg Q12H PRN PO CONSTIPATION; Start 07/17/16 at 21: 00 Magnesium Hydroxide (Milk Of Mag) 30 ml DAILY PRN PO CONSTIPATION; Start at 21:00 Sodium Biphosphate/ Sodium Phosphate (Fleet Enema) 133 ml DAILY PRN [place] CONSTIPATION; Start 07/17/16 at 21:00 Nitroglycerin (Nitroglycerin (Sl Tab) 0.4 Mg) 1 tab Q5M PRN SL ANGINA Last administered on 07/19/16 13:57; Admin Dose 1 TAB; Start 07/17/16 at 21:00 Isoniazid (Isoniazid) 300 mg DAILY PO Last administered on 07/28/16 10:40; Admin Dose 300 MG; Start 07/18/16 at 09:00 Pentoxifylline (Trental) 400 mg DAILY PO Last administered on 07/28/16 10:40; Admin Dose 400 MG; Start 07/18/16 at 09:00 Pyridoxine HCl (Vitamin B6) 50 mg DAILY PO Last administered on 07/28/16 10:39 ; Admin Dose 50 MG; Start 07/18/16 at 09:00 Miscellaneous Information 1 ea NOTE XX ; Start 07/18/16 at 05:30 Glucose (Glutose) 15 gm Q15M PRN PO DECREASED GLUCOSE; Start 07/18/16 at 05:30 Glucose (Glutose) 22.5 gm Q15M PRN PO DECREASED GLUCOSE; Start 07/18/16 at 05: 30 Dextrose (D50w Syringe) 25 ml Q15M PRN IV DECREASED GLUCOSE; Start 07/18/16 at 05:30 Dextrose (D50w Syringe) 50 ml Q15M PRN IV DECREASED GLUCOSE; Start 07/18/16 at 05:30 Glucagon (Glucagen) 1 mg Q15M PRN IM DECREASED GLUCOSE; Start 07/18/16 at 05:30 Glucose (Glutose) 15 gm Q15M PRN BUCCAL DECREASED GLUCOSE; Start 07/18/16 at 05 :30 Diagnostic Test (Pha) (Accucheck) 1 ea 02 XX Last administered on 07/28/16 02: 18; Admin Dose 1 EA; Start 07/18/16 at 08:00 Metoprolol Tartrate (Lopressor) 50 mg BID PO Last administered on 07/27/16 20: 07; Admin Dose 50 MG; Start 07/19/16 at 14:00 Atorvastatin Calcium (Lipitor) 40 mg HS PO Last administered on 07/27/16 20:06 ; Admin Dose 40 MG; Start 07/19/16 at 21:00 Epoetin Lico (Epogen (Esrd)) 10,000 units TuThSa@17 SC Last administered on 18:11; Admin Dose 10,000 UNITS; Start 07/21/16 at 17:00 Gentamicin Sulfate (Gentamicin Iv Per Pharmacy) GENTAMICIN PER PHARMACY NOTE XX ; Start 07/20/16 at 14:30 Trimethobenzamide HCl (Tigan) 200 mg Q6H PRN IM NAUSEA AND/OR VOMITING Last administered on 07/22/16 09:53; Admin Dose 200 MG; Start 07/20/16 at 21:00 Nystatin (Nystatin Susp) 5 ml QID PO Last administered on 07/27/16 20:06; Admin Dose 5 ML; Start 07/21/16 at 17:00 Amiodarone HCl (Cordarone) 200 mg DAILY PO Last administered on 07/28/16 09:12 ; Admin Dose 200 MG; Start 07/23/16 at 09:00 Metoclopramide HCl (Reglan) 5 mg Q4 PRN IV NAUSEA AND/OR VOMITING Last administered on 07/25/16 17:07; Admin Dose 5 MG; Start 07/22/16 at 17:00 Lisinopril (Zestril) 20 mg BID PO Last administered on 07/28/16 09:12; Admin Dose 20 MG; Start 07/23/16 at 21:00 Hydralazine HCl (Apresoline) 10 mg Q2H PRN IV ELEVATED BLOOD PRESSURE Last administered on 07/26/16 05:16; Admin Dose 10 MG; Start 07/23/16 at 13:00 Senna/Docusate Sodium (Senokot-S) 2 tab HS PO Last administered on 07/27/16 20 :07; Admin Dose 2 TAB; Start 07/23/16 at 21:00 Insulin Glargine (Lantus) 5 unit HS SC Last administered on 07/27/16 20:14; Admin Dose 5 UNIT; Start 07/23/16 at 21:00 Aspirin (Halfprin) 81 mg DAILY PO Last administered on 07/28/16 09:10; Admin Dose 81 MG; Start 07/26/16 at 09:00 Famotidine (Pepcid) 40 mg HS PO Last administered on 07/27/16 20:06; Admin Dose 40 MG; Start 07/25/16 at 21:00 Nifedipine (Procardia Xl) 90 mg DAILY PO Last administered on 07/27/16 08:43; Admin Dose 90 MG; Start 07/27/16 at 09:00 Enoxaparin Sodium (Lovenox) 30 mg Q24H SC ; Start 07/29/16 at 09:00 Pantoprazole (Protonix Tab) 40 mg DAILY PO ; Start 07/29/16 at 09:00 ELINA JOHNSON MD Jul 28, 2016 15:01
--- NOTE | 2016-07-28 17:13 | CONS ---
Date/Time of Note Date/Time of Note DATE: 07/28/16 TIME: 17:11 Assessment/Plan Assessment/Plan Chief Complaint/Hosp Course ID PROGRESS NOTE DUPLICATE NOTE ENTERED IN ERROR * Please refer to alternative ID Progress note of same date 07/28/16 Problems: Consultation Date/Type/Reason Admit Date/Time Jul 17, 2016 at 20:10 Initial Consult Date Type of Consultation: id Exam/Review of Systems Vital Signs Vitals Vital Signs Date Time Temp Pulse Resp B/P Pulse Ox O2 Delivery O2 Flow Rate FiO2 07/28/16 10:50 58 138/65 07/28/16 08:34 98.8 19 92 Room Air 07/27/16 13:30 2.0 Intake and Output 07/27/16 07/27/16 07/28/16 15:00 23:00 07:00 Intake Total 600 ml 750 ml 250 ml Output Total 1900 ml Balance -1300 ml 750 ml 250 ml Results Result Diagram: 07/28/16 0523 07/28/16 0523 Results 24 hrs Laboratory Tests Test 07/27/16 17:14 07/27/16 20:12 07/28/16 02:06 07/28/16 05:23 Bedside Glucose 213 160 139 White Blood Count 11.5 #H Red Blood Count 3.35 L Hemoglobin 10.0 L Hematocrit 31.0 L Mean Corpuscular Volume 92.5 Mean Corpuscular Hemoglobin 29.9 Mean Corpuscular Hemoglobin Concent 32.3 Red Cell Distribution Width 17.0 H Platelet Count 249 Mean Platelet Volume 11.1 H Neutrophils % 76.5 Lymphocytes % 8.9 L Monocytes % 11.6 H Eosinophils % 1.6 Basophils % 0.3 Nucleated Red Blood Cells % 0.0 Neutrophils # 8.8 H Lymphocytes # 1.0 Monocytes # 1.3 H Eosinophils # 0.2 Basophils # 0.0 Nucleated Red Blood Cells # 0.0 Sodium Level 134 L Potassium Level 5.5 H Chloride Level 98 Carbon Dioxide Level 26 Anion Gap 16 Blood Urea Nitrogen 32 H Creatinine 6.18 H Glucose Level 114 Calcium Level 8.1 L Test 07/28/16 07:43 07/28/16 11:37 Bedside Glucose 107 136 Medications Medications Current Medications Acetaminophen (Tylenol Tab) 650 mg Q6H PRN PO PAIN LEVEL 1-3 OR FEVER Last administered on 07/27/16t 06:39; Admin Dose 650 MG; Start 07/17/16 at 21:00 Acetaminophen/ Hydrocodone Bitart ([place] (5/325)) 1 tab Q6H PRN PO MODERATE PAIN LEVEL 4-6 Last administered on 07/28/16 10:40; Admin Dose 1 TAB; Start at 21:00 Morphine Sulfate (morphine) 2 mg Q4H PRN IV SEVERE PAIN LEVEL 7-10 Last administered on 07/25/16 21:10; Admin Dose 2 MG; Start 07/17/16 at 21:00 Docusate Sodium (Colace) 100 mg Q12H PRN PO CONSTIPATION; Start 07/17/16 at 21: 00 Magnesium Hydroxide (Milk Of Mag) 30 ml DAILY PRN PO CONSTIPATION; Start at 21:00 Sodium Biphosphate/ Sodium Phosphate (Fleet Enema) 133 ml DAILY PRN SC CONSTIPATION; Start 07/17/16 at 21:00 Nitroglycerin (Nitroglycerin (Sl Tab) 0.4 Mg) 1 tab Q5M PRN SL ANGINA Last administered on 07/19/16 13:57; Admin Dose 1 TAB; Start 07/17/16 at 21:00 Isoniazid (Isoniazid) 300 mg DAILY PO Last administered on 07/28/16 10:40; Admin Dose 300 MG; Start 07/18/16 at 09:00 Pentoxifylline (Trental) 400 mg DAILY PO Last administered on 07/28/16 10:40; Admin Dose 400 MG; Start 07/18/16 at 09:00 Pyridoxine HCl (Vitamin B6) 50 mg DAILY PO Last administered on 07/28/16 10:39 ; Admin Dose 50 MG; Start 07/18/16 at 09:00 Miscellaneous Information 1 ea NOTE XX ; Start 07/18/16 at 05:30 Glucose (Glutose) 15 gm Q15M PRN PO DECREASED GLUCOSE; Start 07/18/16 at 05:30 Glucose (Glutose) 22.5 gm Q15M PRN PO DECREASED GLUCOSE; Start 07/18/16 at 05: 30 Dextrose (D50w Syringe) 25 ml Q15M PRN IV DECREASED GLUCOSE; Start 07/18/16 at 05:30 Dextrose (D50w Syringe) 50 ml Q15M PRN IV DECREASED GLUCOSE; Start 07/18/16 at 05:30 Glucagon (Glucagen) 1 mg Q15M PRN IM DECREASED GLUCOSE; Start 07/18/16 at 05:30 Glucose (Glutose) 15 gm Q15M PRN BUCCAL DECREASED GLUCOSE; Start 07/18/16 at 05 :30 Diagnostic Test (Pha) (Accucheck) 1 ea 02 XX Last administered on 07/28/16 02: 18; Admin Dose 1 EA; Start 07/18/16 at 08:00 Metoprolol Tartrate (Lopressor) 50 mg BID PO Last administered on 07/27/16 20: 07; Admin Dose 50 MG; Start 07/19/16 at 14:00 Atorvastatin Calcium (Lipitor) 40 mg HS PO Last administered on 07/27/16 20:06 ; Admin Dose 40 MG; Start 07/19/16 at 21:00 Epoetin Lico (Epogen (Esrd)) 10,000 units TuThSa@17 SC Last administered on 18:11; Admin Dose 10,000 UNITS; Start 07/21/16 at 17:00 Gentamicin Sulfate (Gentamicin Iv Per Pharmacy) GENTAMICIN PER PHARMACY NOTE XX ; Start 07/20/16 at 14:30 Trimethobenzamide HCl (Tigan) 200 mg Q6H PRN IM NAUSEA AND/OR VOMITING Last administered on 07/22/16 09:53; Admin Dose 200 MG; Start 07/20/16 at 21:00 Nystatin (Nystatin Susp) 5 ml QID PO Last administered on 07/27/16 20:06; Admin Dose 5 ML; Start 07/21/16 at 17:00 Amiodarone HCl (Cordarone) 200 mg DAILY PO Last administered on 07/28/16 09:12 ; Admin Dose 200 MG; Start 07/23/16 at 09:00 Metoclopramide HCl (Reglan) 5 mg Q4 PRN IV NAUSEA AND/OR VOMITING Last administered on 07/25/16 17:07; Admin Dose 5 MG; Start 07/22/16 at 17:00 Lisinopril (Zestril) 20 mg BID PO Last administered on 07/28/16 09:12; Admin Dose 20 MG; Start 07/23/16 at 21:00 Hydralazine HCl (Apresoline) 10 mg Q2H PRN IV ELEVATED BLOOD PRESSURE Last administered on 07/26/16 05:16; Admin Dose 10 MG; Start 07/23/16 at 13:00 Senna/Docusate Sodium (Senokot-S) 2 tab HS PO Last administered on 07/27/16 20 :07; Admin Dose 2 TAB; Start 07/23/16 at 21:00 Insulin Glargine (Lantus) 5 unit HS SC Last administered on 07/27/16 20:14; Admin Dose 5 UNIT; Start 07/23/16 at 21:00 Aspirin (Halfprin) 81 mg DAILY PO Last administered on 07/28/16 09:10; Admin Dose 81 MG; Start 07/26/16 at 09:00 Famotidine (Pepcid) 40 mg HS PO Last administered on 07/27/16 20:06; Admin Dose 40 MG; Start 07/25/16 at 21:00 Nifedipine (Procardia Xl) 90 mg DAILY PO Last administered on 07/27/16 08:43; Admin Dose 90 MG; Start 07/27/16 at 09:00 Enoxaparin Sodium (Lovenox) 30 mg Q24H SC ; Start 07/29/16 at 09:00 Pantoprazole (Protonix Tab) 40 mg DAILY PO ; Start 07/29/16 at 09:00 ANGI MELENDEZ NP Jul 28, 2016 17:12 administered on 07/25/16 17:07; Admin Dose 5 MG; Start 07/22/16 at 17:00 Lisinopril (Zestril) 20 mg BID PO Last administered on 07/28/16 09:12; Admin Dose 20 MG; Start 07/23/16 at 21:00 Hydralazine HCl (Apresoline) 10 mg Q2H PRN IV ELEVATED BLOOD PRESSURE Last administered on 07/26/16 05:16; Admin Dose 10 MG; Start 07/23/16 at 13:00 Senna/Docusate Sodium (Senokot-S) 2 tab HS PO Last administered on 07/27/16 20 :07; Admin Dose 2 TAB; Start 07/23/16 at 21:00 Insulin Glargine (Lantus) 5 unit HS SC Last administered on 07/27/16 20:14; Admin Dose 5 UNIT; Start 07/23/16 at 21:00 Aspirin (Halfprin) 81 mg DAILY PO Last administered on 07/28/16 09:10; Admin Dose 81 MG; Start 07/26/16 at 09:00 Famotidine (Pepcid) 40 mg HS PO Last administered on 07/27/16 20:06; Admin Dose 40 MG; Start 07/25/16 at 21:00 Nifedipine (Procardia Xl) 90 mg DAILY PO Last administered on 07/27/16 08:43; Admin Dose 90 MG; Start 07/27/16 at 09:00 Enoxaparin Sodium (Lovenox) 30 mg Q24H SC ; Start 07/29/16 at 09:00 Pantoprazole (Protonix Tab) 40 mg DAILY PO ; Start 07/29/16 at 09:00 ANGI MELENDEZ NP Jul 28, 2016 17:12
--- NOTE | 2016-07-28 20:58 | CONS ---
Date/Time of Note Date/Time of Note DATE: 07/28/16 TIME: 20:55 Assessment/Plan Assessment/Plan Chief Complaint/Hosp Course ID PROGRESS NOTE CURRENT ABX=> GENT post HD 24H INTERVAL SUMMARY * Sleeping, VSS, no fevers, NAD * Chart reviewed => Admit with line sepsis line DC'd 07/20 w/Tip (-) BCX (+) SERRATIA MARCESCENS PHYSICAL EXAMINATION: GENERAL:VSS, NAD HEENT: Unremarkable NECK: Supple, trachea midline. CHEST: Rise symmetrical, without dyspnea on observation HEART: Pulse RRR ABDOMEN: soft EXTREMITIES: Warm ID ASSESSMENT 60 yo f admit with: 1. Resolving sepsis. 2. Status post Serratia marcescens bacteremia. Right chest Perm-A-Cath was discontinued. * Repeat BCx (-) 3. End-stage renal disease. 4. Possible old hematoma at right chest catheter site. 5. Anemia. 6. Oral candidiasis. 7. Diabetes. (-)MRSA Nares INVASIVES: Temporary [place] groin ABX ALLERGY: KNDA CURRENT ABX: GENT post HD ID RECOMMENDATIONS 1. Continue current ABX 2. Approved for new PermCath as long as BCx remain (-) . Problems: Consultation Date/Type/Reason Admit Date/Time Jul 17, 2016 at 20:10 Type of Consultation: id Exam/Review of Systems Vital Signs Vitals Vital Signs Date Time Temp Pulse Resp B/P Pulse Ox O2 Delivery O2 Flow Rate FiO2 07/28/16 20:45 60 07/28/16 20:45 98.5 19 150/73 07/28/16 08:34 92 Room Air 07/27/16 13:30 2.0 Intake and Output 07/27/16 07/27/16 07/28/16 15:00 23:00 07:00 Intake Total 600 ml 750 ml 250 ml Output Total 1900 ml Balance -1300 ml 750 ml 250 ml Results Result Diagram: 07/28/16 0523 07/28/16 0523 Results 24 hrs Laboratory Tests Test 07/28/16 02:06 07/28/16 05:23 07/28/16 07:43 07/28/16 11:37 Bedside Glucose 139 107 136 White Blood Count 11.5 #H Red Blood Count 3.35 L Hemoglobin 10.0 L Hematocrit 31.0 L Mean Corpuscular Volume 92.5 Mean Corpuscular Hemoglobin 29.9 Mean Corpuscular Hemoglobin Concent 32.3 Red Cell Distribution Width 17.0 H Platelet Count 249 Mean Platelet Volume 11.1 H Neutrophils % 76.5 Lymphocytes % 8.9 L Monocytes % 11.6 H Eosinophils % 1.6 Basophils % 0.3 Nucleated Red Blood Cells % 0.0 Neutrophils # 8.8 H Lymphocytes # 1.0 Monocytes # 1.3 H Eosinophils # 0.2 Basophils # 0.0 Nucleated Red Blood Cells # 0.0 Sodium Level 134 L Potassium Level 5.5 H Chloride Level 98 Carbon Dioxide Level 26 Anion Gap 16 Blood Urea Nitrogen 32 H Creatinine 6.18 H Glucose Level 114 Calcium Level 8.1 L Test 07/28/16 16:47 Bedside Glucose 98 Medications Medications Current Medications Acetaminophen (Tylenol Tab) 650 mg Q6H PRN PO PAIN LEVEL 1-3 OR FEVER Last administered on 07/27/16 06:39; Admin Dose 650 MG; Start 07/17/16 at 21:00 Acetaminophen/ Hydrocodone Bitart ([place] (5/325)) 1 tab Q6H PRN PO MODERATE PAIN LEVEL 4-6 Last administered on 07/28/16 10:40; Admin Dose 1 TAB; Start at 21:00 Morphine Sulfate (morphine) 2 mg Q4H PRN IV SEVERE PAIN LEVEL 7-10 Last administered on 07/25/16 21:10; Admin Dose 2 MG; Start 07/17/16 at 21:00 Docusate Sodium (Colace) 100 mg Q12H PRN PO CONSTIPATION; Start 07/17/16 at 21: 00 Magnesium Hydroxide (Milk Of Mag) 30 ml DAILY PRN PO CONSTIPATION; Start at 21:00 Sodium Biphosphate/ Sodium Phosphate (Fleet Enema) 133 ml DAILY PRN [place] CONSTIPATION; Start 07/17/16 at 21:00 Nitroglycerin (Nitroglycerin (Sl Tab) 0.4 Mg) 1 tab Q5M PRN SL ANGINA Last administered on 07/19/16 13:57; Admin Dose 1 TAB; Start 07/17/16 at 21:00 Isoniazid (Isoniazid) 300 mg DAILY PO Last administered on 07/28/16 10:40; Admin Dose 300 MG; Start 07/18/16 at 09:00 Pentoxifylline (Trental) 400 mg DAILY PO Last administered on 07/28/16 10:40; Admin Dose 400 MG; Start 07/18/16 at 09:00 Pyridoxine HCl (Vitamin B6) 50 mg DAILY PO Last administered on 07/28/16 10:39 ; Admin Dose 50 MG; Start 07/18/16 at 09:00 Miscellaneous Information 1 ea NOTE XX ; Start 07/18/16 at 05:30 Glucose (Glutose) 15 gm Q15M PRN PO DECREASED GLUCOSE; Start 07/18/16 at 05:30 Glucose (Glutose) 22.5 gm Q15M PRN PO DECREASED GLUCOSE; Start 07/18/16 at 05: 30 Dextrose (D50w Syringe) 25 ml Q15M PRN IV DECREASED GLUCOSE; Start 07/18/16 at 05:30 Dextrose (D50w Syringe) 50 ml Q15M PRN IV DECREASED GLUCOSE; Start 07/18/16 at 05:30 Glucagon (Glucagen) 1 mg Q15M PRN IM DECREASED GLUCOSE; Start 07/18/16 at 05:30 Glucose (Glutose) 15 gm Q15M PRN BUCCAL DECREASED GLUCOSE; Start 07/18/16 at 05 :30 Diagnostic Test (Pha) (Accucheck) 1 ea 02 XX Last administered on 07/28/16 02: 18; Admin Dose 1 EA; Start 07/18/16 at 08:00 Metoprolol Tartrate (Lopressor) 50 mg BID PO Last administered on 07/27/16 20: 07; Admin Dose 50 MG; Start 07/19/16 at 14:00 Atorvastatin Calcium (Lipitor) 40 mg HS PO Last administered on 07/27/16 20:06 ; Admin Dose 40 MG; Start 07/19/16 at 21:00 Epoetin Lico (Epogen (Esrd)) 10,000 units TuThSa@17 SC Last administered on 18:11; Admin Dose 10,000 UNITS; Start 07/21/16 at 17:00 Gentamicin Sulfate (Gentamicin Iv Per Pharmacy) GENTAMICIN PER PHARMACY NOTE XX ; Start 07/20/16 at 14:30 Trimethobenzamide HCl (Tigan) 200 mg Q6H PRN IM NAUSEA AND/OR VOMITING Last administered on 07/22/16 09:53; Admin Dose 200 MG; Start 07/20/16 at 21:00 Nystatin (Nystatin Susp) 5 ml QID PO Last administered on 07/27/16 20:06; Admin Dose 5 ML; Start 07/21/16 at 17:00 Amiodarone HCl (Cordarone) 200 mg DAILY PO Last administered on 07/28/16 09:12 ; Admin Dose 200 MG; Start 07/23/16 at 09:00 Metoclopramide HCl (Reglan) 5 mg Q4 PRN IV NAUSEA AND/OR VOMITING Last administered on 07/25/16 17:07; Admin Dose 5 MG; Start 07/22/16 at 17:00 Lisinopril (Zestril) 20 mg BID PO Last administered on 07/28/16 09:12; Admin Dose 20 MG; Start 07/23/16 at 21:00 Hydralazine HCl (Apresoline) 10 mg Q2H PRN IV ELEVATED BLOOD PRESSURE Last administered on 07/26/16 05:16; Admin Dose 10 MG; Start 07/23/16 at 13:00 Senna/Docusate Sodium (Senokot-S) 2 tab HS PO Last administered on 07/27/16 20 :07; Admin Dose 2 TAB; Start 07/23/16 at 21:00 Insulin Glargine (Lantus) 5 unit HS SC Last administered on 07/27/16 20:14; Admin Dose 5 UNIT; Start 07/23/16 at 21:00 Aspirin (Halfprin) 81 mg DAILY PO Last administered on 07/28/16 09:10; Admin Dose 81 MG; Start 07/26/16 at 09:00 Famotidine (Pepcid) 40 mg HS PO Last administered on 07/27/16 20:06; Admin Dose 40 MG; Start 07/25/16 at 21:00 Nifedipine (Procardia Xl) 90 mg DAILY PO Last administered on 07/27/16 08:43; Admin Dose 90 MG; Start 07/27/16 at 09:00 Enoxaparin Sodium (Lovenox) 30 mg Q24H SC ; Start 07/29/16 at 09:00 Pantoprazole (Protonix Tab) 40 mg DAILY PO ; Start 07/29/16 at 09:00 ANGI MELENDEZ NP Jul 28, 2016 20:58
[2016-07-28] MEDS: EPOETIN 10000 UNITS/1 ML INJ (ESRD) SC SCH (22:13)
[2016-07-28] MEDS: ATORVASTATIN 40 MG TAB PO SCH (22:13)
[2016-07-28] MEDS: FAMOTIDINE 20 MG TAB PO SCH (22:15)
[2016-07-28] MEDS: SENNA/DOCUSATE NA (8.6MG/50MG) TAB PO SCH (22:15)
[2016-07-28] MEDS: INSULIN GLARGINE [LANtus] 3 ML PEN SC SCH (22:17)
[2016-07-28] MEDS: GENTAMICIN 80 MG/NS (PMX) 50 ML IVPB SCH (22:19)
[2016-07-29] MEDS: ACCUCHECK 2 AM XX SCH (02:28)
[2016-07-29 06:05] LABS: ADD SCAN DIFF NO
[2016-07-29 06:11] LABS: BASOPHILS % 0.5 % (0.0-2.0); EOSINOPHILS # 0.2 10^3/ul (0.0-0.5); EOSINOPHILS % 2.1 % (0.0-7.0); HEMATOCRIT 30.4 % (37.0-47.0); HEMOGLOBIN 9.7 g/dl (12.0-16.0); LYMPHOCYTES # 0.8 10^3/ul (0.8-2.9); LYMPHOCYTES % 9.6 % (15.0-51.0); MEAN CORPUSCULAR HEMOGLOBIN 29.8 pg (29.0-33.0); MEAN CORPUSCULAR HGB CONC 31.9 g/dl (32.0-37.0); MEAN CORPUSCULAR VOLUME 93.5 fl (82.0-101.0); MEAN PLATELET VOLUME 10.7 fl (7.4-10.4); MONOCYTE # 1.3 10^3/ul (0.3-0.9); MONOCYTES % 14.8 % (0.0-11.0); NEUTROPHIL # 6.3 10^3/ul (1.6-7.5); NEUTROPHILS % 72.2 % (39.0-77.0); PLATELET COUNT 216 10^3/UL (140-415); RED BLOOD COUNT 3.25 10^6/ul (4.20-5.40); RED CELL DISTRIBUTION WIDTH 17.2 % (11.5-14.5); WHITE BLOOD COUNT 8.7 10^3/ul (4.8-10.8)
[2016-07-29 06:24] LABS: POTASSIUM 4.2 mmol/L (3.5-5.1)
[2016-07-29 06:26] LABS: CREATININE 3.96 mg/dl (0.44-1.00)
[2016-07-29 06:27] LABS: CALCIUM 7.9 mg/dl (8.4-10.2); PHOSPHORUS 4.5 mg/dl (2.5-4.9)
[2016-07-29] MEDS: LEVOTHYROXINE 125 MCG TAB PO SCH (06:27)
[2016-07-29] MEDS: INSULIN ASPART [NOVOLOG] 3 ML PEN SC SCH ×4 (08:00→20:46)
[2016-07-29 08:23] VITALS: BP 151/67; RESP 19
[2016-07-29] MEDS: NYSTATIN SUSP 5 ML CUP PO SCH ×6 (09:00→20:52)
[2016-07-29] MEDS: CALCIUM ACETATE 667 MG CAP PO SCH ×3 (10:08→17:35)
[2016-07-29] MEDS: PANTOPRAZOLE (EC) 40 MG TAB PO SCH (10:08)
[2016-07-29] MEDS: ASPIRIN (EC) 81 MG TAB PO SCH (10:08)
[2016-07-29] MEDS: PENTOXIFYLLINE (SR) 400 MG TAB PO SCH (10:08)
[2016-07-29] MEDS: ISONIAZID 300 MG TAB PO SCH (10:08)
[2016-07-29] MEDS: NIFEdipine (XL) 90 MG TAB PO SCH (10:09)
[2016-07-29] MEDS: LISINOPRIL 20 MG TAB PO SCH ×2 (10:09→20:48)
[2016-07-29] MEDS: METOPROLOL 50 MG TAB PO SCH ×2 (10:09→20:47)
[2016-07-29] MEDS: ENOXAPARIN 30 MG/0.3 ML SYG SC SCH (10:10)
[2016-07-29] MEDS: AMIODARONE 200 MG TAB PO SCH (10:11)
--- NOTE | 2016-07-29 10:54 | PN ---
DATE: 07/29/2016 SUBJECTIVE: The patient is stable, no acute events overnight. The patient had hemodialysis yesterd ay, tolerated well. OBJECTIVE: VITAL SIGNS: Blood pressure 151/67, respirations 19, pulse 60, temperature 97.7. HEENT: Head is normocephalic. NECK: Supple. HEART: Regular rate. LUNGS: Show diminished breath sounds at the bases. ABDOMEN: Soft, nontender to palpation. No rebound or guarding. EXTREMITIES: Negative for clubbing, cyanosis. No edema. DERMATOLOGIC: No rashes. MUSCULOSKELETAL: No joint effusions. NEUROLOGIC: No change in exam. MEDICATIONS: Reviewed. LABORATORY DATA: Shows sodium 133, potassium 4.2, BUN 17, creatinine 3.96. White count 8.7, hemogl obin 9.7, hematocrit .4, platelet count 216. ASSESSMENT AND PLAN: 1. End-stage renal disease. The patient had hemodialysis yesterday, tolerated well. Plan for dial ysis tomorrow. 2. Hyperkalemia secondary to end-stage renal disease, resolved with dialysis. 3. Sepsis secondary to line infection. The patient is clinically improving, completing antibiotic course. 4. Hypertension. Continue current blood pressure regimen. 5. Anemia of chronic disease. Continue to monitor H and H levels. Continue Epogen. 6. Mineral bone disorder. Continue to monitor calcium and phosphorus levels. Continue phos binder s. 7. Diabetes. Continue Accu-Cheks, insulin sliding scale. 8. Atrial fibrillation, rate controlled. Continue current treatment plan. Dictated By: LY MENDEZ/FADUMO Conf#: [id number] DID#: [id number]
[2016-07-29] MEDS: PYRIDOXINE 50 MG TAB PO SCH (12:02)
--- NOTE | 2016-07-29 14:17 | PN ---
Date/Time of Note Date/Time of Note DATE: 07/29/16 TIME: 14:15 Assessment/Plan VTE Prophylaxis VTE Prophylaxis Intervention: LMWH Lines/Catheters IV Catheter Type (from Nrs): Saline Lock Urinary Cath still in place: No Assessment/Plan Chief Complaint/Hosp Course S: 07/24-Tired, no sleep. Had hd overnight. No dyspnea or fever. 6 beats nsvt overnight. Stress test was negative. Sp hd access placement. 07/25-nausea/'gastritis'. denies dyspnea. denies constipation. 07/26-probable hematoma noted rt upper chest. Denies any dyspnea fever. Less headache nausea. Some pain right groin. 07/27-mechanical fall yesterday late evening when getting out of bed. Nonfocal no injuries. Low BP post HD? No fevers chills eating well. Right chest less uncomfortable. 07/28- sp dialysis catheter placement. Pain at surgical site. No jian dyspnea chest pain. Appetite little poor. I spoke with her regarding anticipated discharge home tomorrow and asked her to ambulate more. 07/29-no events O: Vss; PE: No pallor JVD. HD Access C/D/I Reg; no m/r/g Ctab; rt chest-hematoma? Stable/improved BS + nt nd, no r/r/g No edema; rt HD Access C/D/I A/P 1) Sepsis/ line sepsis/ serratia. sp access removal. stable, cont gent w HD for 4 more days. 2) ESRD/ hd; groin catheter removed. sp permacath. Avf down the line. 3) Dm 8.0 4) Htn/ dyslipidemia- low hdl 5) Hypothyroidism 6) Anemia; stable 7) P A Fib; on amiodarone. (tsh/lft's/ophthal down the line). Rx #1. Stress test -ve. 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 Consider asa/Coumadin. Appreciate vascular assistance 11) Nsvt 6 beats, replaced lytes. on bb. 12) N/gastritis? uremia/ improved.trying ppi. watch for acs. 13) CAD/ acute Mi. stable, cont medical mngmnt. asa. 14) Rt chest hematoma? 15) Mechanical fall, home safety PT and DME on discharge. checked orthostatics. Dc home if ok w nephro and IV atb's w dialysis arranged for about 3 more days. Problems: Exam/Review of Systems Vital Signs Vitals Vital Signs Date Time Temp Pulse Resp B/P Pulse Ox O2 Delivery O2 Flow Rate FiO2 07/29/16 08:23 97.7 60 19 151/67 92 07/28/16 08:34 Room Air 07/27/16 13:30 2.0 Intake and Output 07/28/16 07/28/16 07/29/16 15:00 23:00 07:00 Intake Total 1390 ml 300 ml Output Total 1500 ml Balance -110 ml 300 ml Results Result Diagram: 07/29/16 0545 07/29/16 0545 Results 24 hrs Laboratory Tests Test 07/28/16 16:47 07/28/16 22:10 07/29/16 02:23 07/29/16 05:45 Bedside Glucose 98 173 143 White Blood Count 8.7 # Red Blood Count 3.25 L Hemoglobin 9.7 L Hematocrit 30.4 L Mean Corpuscular Volume 93.5 Mean Corpuscular Hemoglobin 29.8 Mean Corpuscular Hemoglobin Concent 31.9 L Red Cell Distribution Width 17.2 H Platelet Count 216 Mean Platelet Volume 10.7 H Neutrophils % 72.2 Lymphocytes % 9.6 L Monocytes % 14.8 H Eosinophils % 2.1 Basophils % 0.5 Nucleated Red Blood Cells % 0.0 Neutrophils # 6.3 Lymphocytes # 0.8 Monocytes # 1.3 H Eosinophils # 0.2 Basophils # 0.0 Nucleated Red Blood Cells # 0.0 Sodium Level 133 L Potassium Level 4.2 Chloride Level 96 L Carbon Dioxide Level 30 Anion Gap 11 Blood Urea Nitrogen 17 # Creatinine 3.96 #H Glucose Level 111 Calcium Level 7.9 L Phosphorus Level 4.5 Magnesium Level 2.0 Test 07/29/16 07:59 07/29/16 11:24 Bedside Glucose 140 169 Medications Medications Current Medications Acetaminophen (Tylenol Tab) 650 mg Q6H PRN PO PAIN LEVEL 1-3 OR FEVER Last administered on 07/27/16t 06:39; Admin Dose 650 MG; Start 07/17/16 at 21:00 Acetaminophen/ Hydrocodone Bitart ([place] (5/325)) 1 tab Q6H PRN PO MODERATE PAIN LEVEL 4-6 Last administered on 07/28/16 10:40; Admin Dose 1 TAB; Start at 21:00 Morphine Sulfate (morphine) 2 mg Q4H PRN IV SEVERE PAIN LEVEL 7-10 Last administered on 07/25/16 21:10; Admin Dose 2 MG; Start 07/17/16 at 21:00 Docusate Sodium (Colace) 100 mg Q12H PRN PO CONSTIPATION Last administered on 06:27; Admin Dose 100 MG; Start 07/17/16 at 21:00 Magnesium Hydroxide (Milk Of Mag) 30 ml DAILY PRN PO CONSTIPATION; Start at 21:00 Sodium Biphosphate/ Sodium Phosphate (Fleet Enema) 133 ml DAILY PRN [place] CONSTIPATION; Start 07/17/16 at 21:00 Nitroglycerin (Nitroglycerin (Sl Tab) 0.4 Mg) 1 tab Q5M PRN SL ANGINA Last administered on 07/19/16 13:57; Admin Dose 1 TAB; Start 07/17/16 at 21:00 Isoniazid (Isoniazid) 300 mg DAILY PO Last administered on 07/29/16 10:08; Admin Dose 300 MG; Start 07/18/16 at 09:00 Pentoxifylline (Trental) 400 mg DAILY PO Last administered on 07/29/16 10:08; Admin Dose 400 MG; Start 07/18/16 at 09:00 Pyridoxine HCl (Vitamin B6) 50 mg DAILY PO Last administered on 07/29/16 12:02 ; Admin Dose 50 MG; Start 07/18/16 at 09:00 Miscellaneous Information 1 ea NOTE XX ; Start 07/18/16 at 05:30 Glucose (Glutose) 15 gm Q15M PRN PO DECREASED GLUCOSE; Start 07/18/16 at 05:30 Glucose (Glutose) 22.5 gm Q15M PRN PO DECREASED GLUCOSE; Start 07/18/16 at 05: 30 Dextrose (D50w Syringe) 25 ml Q15M PRN IV DECREASED GLUCOSE; Start 07/18/16 at 05:30 Dextrose (D50w Syringe) 50 ml Q15M PRN IV DECREASED GLUCOSE; Start 07/18/16 at 05:30 Glucagon (Glucagen) 1 mg Q15M PRN IM DECREASED GLUCOSE; Start 07/18/16 at 05:30 Glucose (Glutose) 15 gm Q15M PRN BUCCAL DECREASED GLUCOSE; Start 07/18/16 at 05 :30 Diagnostic Test (Pha) (Accucheck) 1 ea 02 XX Last administered on 07/29/16 02: 28; Admin Dose 1 EA; Start 07/18/16 at 08:00 Metoprolol Tartrate (Lopressor) 50 mg BID PO Last administered on 07/29/16 10: 09; Admin Dose 50 MG; Start 07/19/16 at 14:00 Atorvastatin Calcium (Lipitor) 40 mg HS PO Last administered on 07/28/16 22:13 ; Admin Dose 40 MG; Start 07/19/16 at 21:00 Epoetin Lico (Epogen (Esrd)) 10,000 units TuThSa@17 SC Last administered on 22:13; Admin Dose 10,000 UNITS; Start 07/21/16 at 17:00 Gentamicin Sulfate (Gentamicin Iv Per Pharmacy) GENTAMICIN PER PHARMACY NOTE XX ; Start 07/20/16 at 14:30 Trimethobenzamide HCl (Tigan) 200 mg Q6H PRN IM NAUSEA AND/OR VOMITING Last administered on 07/22/16 09:53; Admin Dose 200 MG; Start 07/20/16 at 21:00 Nystatin (Nystatin Susp) 5 ml QID PO Last administered on 07/28/16 22:14; Admin Dose 5 ML; Start 07/21/16 at 17:00 Amiodarone HCl (Cordarone) 200 mg DAILY PO Last administered on 07/29/16 10:11 ; Admin Dose 200 MG; Start 07/23/16 at 09:00 Metoclopramide HCl (Reglan) 5 mg Q4 PRN IV NAUSEA AND/OR VOMITING Last administered on 07/25/16 17:07; Admin Dose 5 MG; Start 07/22/16 at 17:00 Lisinopril (Zestril) 20 mg BID PO Last administered on 07/29/16 10:09; Admin Dose 20 MG; Start 07/23/16 at 21:00 Hydralazine HCl (Apresoline) 10 mg Q2H PRN IV ELEVATED BLOOD PRESSURE Last administered on 07/26/16 05:16; Admin Dose 10 MG; Start 07/23/16 at 13:00 Senna/Docusate Sodium (Senokot-S) 2 tab HS PO Last administered on 07/28/16 22 :15; Admin Dose 2 TAB; Start 07/23/16 at 21:00 Insulin Glargine (Lantus) 5 unit HS SC Last administered on 07/28/16 22:17; Admin Dose 5 UNIT; Start 07/23/16 at 21:00 Aspirin (Halfprin) 81 mg DAILY PO Last administered on 07/29/16 10:08; Admin Dose 81 MG; Start 07/26/16 at 09:00 Famotidine (Pepcid) 40 mg HS PO Last administered on 07/28/16 22:15; Admin Dose 40 MG; Start 07/25/16 at 21:00 Nifedipine (Procardia Xl) 90 mg DAILY PO Last administered on 07/29/16 10:09; Admin Dose 90 MG; Start 07/27/16 at 09:00 Enoxaparin Sodium (Lovenox) 30 mg Q24H SC Last administered on 07/29/16 10:10 ; Admin Dose 30 MG; Start 07/29/16 at 09:00 Pantoprazole (Protonix Tab) 40 mg DAILY PO Last administered on 07/29/16 10:08 ; Admin Dose 40 MG; Start 07/29/16 at 09:00 ELINA JOHNSON MD Jul 29, 2016 14:17
--- NOTE | 2016-07-29 14:18 | PDOCDIS ---
Discharge Instructions DIAGNOSIS Discharge Diagnosis: Sepsis CONDITION Patient Condition: Stable HOME CARE INSTRUCTIONS: Special Diet: 1800ADA ACTIVITY: Activity Restrictions: Slowly Increase Activity Do not Drive FOLLOW UP/APPOINTMENTS Appointments Appointment primary [address] Whitaker [address] Ndiaye in 2 weeks ELINA JOHNSON MD Jul 29, 2016 14:18
[2016-07-29] MEDS ORDERED: AMIO200T2 PO (14:22)
[2016-07-29] MEDS ORDERED: NYST1000 PO (14:22)
[2016-07-29] MEDS ORDERED: NIFE90TA PO (14:22)
[2016-07-29] MEDS ORDERED: ACET325T40 PO (14:22)
[2016-07-29] MEDS ORDERED: METO-429 PO (14:22)
[2016-07-29] MEDS ORDERED: ASPI-664 PO (14:22)
--- NOTE | 2016-07-29 14:33 | PDOCDIS ---
Discharge Instructions DIAGNOSIS Discharge Diagnosis: Sepsis CONDITION Patient Condition: Good HOME CARE INSTRUCTIONS: Special Diet: 1800ADA ACTIVITY: Activity Restrictions: Slowly Increase Activity Do not Drive FOLLOW UP/APPOINTMENTS Appointments Dr. Whitaker [address] Ndiaye [address] Silveira 3 weeks ELINA JOHNSON MD Jul 29, 2016 14:33
[2016-07-29] MEDS: METOCLOPRAMIDE 10 MG INJ IV PRN (14:58)
--- NOTE | 2016-07-29 15:10 | CONS ---
Date/Time of Note Date/Time of Note DATE: 07/29/16 TIME: 15:08 Assessment/Plan Assessment/Plan Chief Complaint/Hosp Course ID PROGRESS NOTE CURRENT ABX=> GENT post HD 24H INTERVAL SUMMARY * A/A/O "Mejor" (better in [place]) -- no fevers, VSS, NAD * DC Planning in process patient still here -- seen and examined prior to physical departure * Admit with line sepsis line DC'd 07/20 w/Tip (-) BCX (+) SERRATIA MARCESCENS PHYSICAL EXAMINATION: GENERAL:VSS, NAD HEENT: Unremarkable NECK: Supple, trachea midline. CHEST: Rise symmetrical, without dyspnea on observation HEART: Pulse RRR ABDOMEN: soft EXTREMITIES: Warm ID ASSESSMENT 60 yo f admit with: 1. Resolving sepsis. 2. Status post Serratia marcescens bacteremia. Right chest Perm-A-Cath was discontinued. * Repeat BCx (-) 3. End-stage renal disease. 4. Possible old hematoma at right chest catheter site. 5. Anemia. 6. Oral candidiasis. 7. Diabetes. (-)MRSA Nares INVASIVES: Temporary Milton groin ABX ALLERGY: KNDA CURRENT ABX: GENT post HD ID RECOMMENDATIONS 1. Continue current ABX at HD center to be given by HD RN to complete total 14 days 2. Approved for new PermCath as long as BCx remain (-) 3. Concur w/DC plan in place . Problems: Consultation Date/Type/Reason Admit Date/Time Jul 17, 2016 at 20:10 Type of Consultation: id Exam/Review of Systems Vital Signs Vitals Vital Signs Date Time Temp Pulse Resp B/P Pulse Ox O2 Delivery O2 Flow Rate FiO2 07/29/16 08:23 97.7 60 19 151/67 92 07/28/16 08:34 Room Air 07/27/16 13:30 2.0 Intake and Output 07/28/16 07/28/16 07/29/16 15:00 23:00 07:00 Intake Total 1390 ml 300 ml Output Total 1500 ml Balance -110 ml 300 ml Results Result Diagram: 07/29/16 0545 07/29/16 0545 Results 24 hrs Laboratory Tests Test 07/28/16 16:47 07/28/16 22:10 07/29/16 02:23 07/29/16 05:45 Bedside Glucose 98 173 143 White Blood Count 8.7 # Red Blood Count 3.25 L Hemoglobin 9.7 L Hematocrit 30.4 L Mean Corpuscular Volume 93.5 Mean Corpuscular Hemoglobin 29.8 Mean Corpuscular Hemoglobin Concent 31.9 L Red Cell Distribution Width 17.2 H Platelet Count 216 Mean Platelet Volume 10.7 H Neutrophils % 72.2 Lymphocytes % 9.6 L Monocytes % 14.8 H Eosinophils % 2.1 Basophils % 0.5 Nucleated Red Blood Cells % 0.0 Neutrophils # 6.3 Lymphocytes # 0.8 Monocytes # 1.3 H Eosinophils # 0.2 Basophils # 0.0 Nucleated Red Blood Cells # 0.0 Sodium Level 133 L Potassium Level 4.2 Chloride Level 96 L Carbon Dioxide Level 30 Anion Gap 11 Blood Urea Nitrogen 17 # Creatinine 3.96 #H Glucose Level 111 Calcium Level 7.9 L Phosphorus Level 4.5 Magnesium Level 2.0 Test 07/29/16 07:59 07/29/16 11:24 Bedside Glucose 140 169 Medications Medications Current Medications Acetaminophen (Tylenol Tab) 650 mg Q6H PRN PO PAIN LEVEL 1-3 OR FEVER Last administered on 07/27/16 06:39; Admin Dose 650 MG; Start 07/17/16 at 21:00 Acetaminophen/ Hydrocodone Bitart ([place] (5/325)) 1 tab Q6H PRN PO MODERATE PAIN LEVEL 4-6 Last administered on 07/28/16 10:40; Admin Dose 1 TAB; Start at 21:00 Morphine Sulfate (morphine) 2 mg Q4H PRN IV SEVERE PAIN LEVEL 7-10 Last administered on 07/25/16 21:10; Admin Dose 2 MG; Start 07/17/16 at 21:00 Docusate Sodium (Colace) 100 mg Q12H PRN PO CONSTIPATION Last administered on 06:27; Admin Dose 100 MG; Start 07/17/16 at 21:00 Magnesium Hydroxide (Milk Of Mag) 30 ml DAILY PRN PO CONSTIPATION; Start at 21:00 Sodium Biphosphate/ Sodium Phosphate (Fleet Enema) 133 ml DAILY PRN [place] CONSTIPATION; Start 07/17/16 at 21:00 Nitroglycerin (Nitroglycerin (Sl Tab) 0.4 Mg) 1 tab Q5M PRN SL ANGINA Last administered on 07/19/16 13:57; Admin Dose 1 TAB; Start 07/17/16 at 21:00 Isoniazid (Isoniazid) 300 mg DAILY PO Last administered on 07/29/16 10:08; Admin Dose 300 MG; Start 07/18/16 at 09:00 Pentoxifylline (Trental) 400 mg DAILY PO Last administered on 07/29/16 10:08; Admin Dose 400 MG; Start 07/18/16 at 09:00 Pyridoxine HCl (Vitamin B6) 50 mg DAILY PO Last administered on 07/29/16 12:02 ; Admin Dose 50 MG; Start 07/18/16 at 09:00 Miscellaneous Information 1 ea NOTE XX ; Start 07/18/16 at 05:30 Glucose (Glutose) 15 gm Q15M PRN PO DECREASED GLUCOSE; Start 07/18/16 at 05:30 Glucose (Glutose) 22.5 gm Q15M PRN PO DECREASED GLUCOSE; Start 07/18/16 at 05: 30 Dextrose (D50w Syringe) 25 ml Q15M PRN IV DECREASED GLUCOSE; Start 07/18/16 at 05:30 Dextrose (D50w Syringe) 50 ml Q15M PRN IV DECREASED GLUCOSE; Start 07/18/16 at 05:30 Glucagon (Glucagen) 1 mg Q15M PRN IM DECREASED GLUCOSE; Start 07/18/16 at 05:30 Glucose (Glutose) 15 gm Q15M PRN BUCCAL DECREASED GLUCOSE; Start 07/18/16 at 05 :30 Diagnostic Test (Pha) (Accucheck) 1 ea 02 XX Last administered on 07/29/16 02: 28; Admin Dose 1 EA; Start 07/18/16 at 08:00 Metoprolol Tartrate (Lopressor) 50 mg BID PO Last administered on 07/29/16 10: 09; Admin Dose 50 MG; Start 07/19/16 at 14:00 Atorvastatin Calcium (Lipitor) 40 mg HS PO Last administered on 07/28/16 22:13 ; Admin Dose 40 MG; Start 07/19/16 at 21:00 Epoetin Lico (Epogen (Esrd)) 10,000 units TuThSa@17 SC Last administered on 22:13; Admin Dose 10,000 UNITS; Start 07/21/16 at 17:00 Gentamicin Sulfate (Gentamicin Iv Per Pharmacy) GENTAMICIN PER PHARMACY NOTE XX ; Start 07/20/16 at 14:30 Trimethobenzamide HCl (Tigan) 200 mg Q6H PRN IM NAUSEA AND/OR VOMITING Last administered on 07/22/16 09:53; Admin Dose 200 MG; Start 07/20/16 at 21:00 Nystatin (Nystatin Susp) 5 ml QID PO Last administered on 07/28/16 22:14; Admin Dose 5 ML; Start 07/21/16 at 17:00 Amiodarone HCl (Cordarone) 200 mg DAILY PO Last administered on 07/29/16 10:11 ; Admin Dose 200 MG; Start 07/23/16 at 09:00 Metoclopramide HCl (Reglan) 5 mg Q4 PRN IV NAUSEA AND/OR VOMITING Last administered on 07/29/16 14:58; Admin Dose 5 MG; Start 07/22/16 at 17:00 Lisinopril (Zestril) 20 mg BID PO Last administered on 07/29/16 10:09; Admin Dose 20 MG; Start 07/23/16 at 21:00 Hydralazine HCl (Apresoline) 10 mg Q2H PRN IV ELEVATED BLOOD PRESSURE Last administered on 07/26/16 05:16; Admin Dose 10 MG; Start 07/23/16 at 13:00 Senna/Docusate Sodium (Senokot-S) 2 tab HS PO Last administered on 07/28/16 22 :15; Admin Dose 2 TAB; Start 07/23/16 at 21:00 Insulin Glargine (Lantus) 5 unit HS SC Last administered on 07/28/16 22:17; Admin Dose 5 UNIT; Start 07/23/16 at 21:00 Aspirin (Halfprin) 81 mg DAILY PO Last administered on 07/29/16 10:08; Admin Dose 81 MG; Start 07/26/16 at 09:00 Famotidine (Pepcid) 40 mg HS PO Last administered on 07/28/16 22:15; Admin Dose 40 MG; Start 07/25/16 at 21:00 Nifedipine (Procardia Xl) 90 mg DAILY PO Last administered on 07/29/16 10:09; Admin Dose 90 MG; Start 07/27/16 at 09:00 Enoxaparin Sodium (Lovenox) 30 mg Q24H SC Last administered on 07/29/16 10:10 ; Admin Dose 30 MG; Start 07/29/16 at 09:00 Pantoprazole (Protonix Tab) 40 mg DAILY PO Last administered on 07/29/16 10:08 ; Admin Dose 40 MG; Start 07/29/16 at 09:00 ANGI MELENDEZ NP Jul 29, 2016 15:09
--- NOTE | 2016-07-29 17:21 | PN ---
Date/Time of Note Date/Time of Note DATE: 07/29/16 TIME: 17:14 Assessment/Plan Lines/Catheters IV Catheter Type (from Nrs): Saline Lock [place] in Place (from Nrs): No Assessment/Plan Chief Complaint/Hosp Course -End-stage renal disease: It seems the patient had bacteremia and sepsis: S/P emergent removal of her perm catheter. S/P Milton catheter placement -New LIJ perm Catheter -It seems the patient had a cardiac event. Will await for eventual clearance for for fistula creation as outpt -Optimize vascular status (blood pressure, meds, diet, nutrition, exercise, sugar control, antiplatelets). -Discussed findings, plan, and management with the patient with a certified geothermal operating engineer and they understand. -Thank you for allowing us to partake in the care of your patient. Please call with any questions. Problems: Subjective 24 Hr Interval Summary no new vascular events overnight, tolerated HD well Exam/Review of Systems Vital Signs Vitals Vital Signs Date Time Temp Pulse Resp B/P Pulse Ox O2 Delivery O2 Flow Rate FiO2 07/29/16 08:23 97.7 60 19 151/67 92 07/28/16 08:34 Room Air 07/27/16 13:30 2.0 Intake and Output 07/28/16 07/28/16 07/29/16 15:00 23:00 07:00 Intake Total 1390 ml 300 ml Output Total 1500 ml Balance -110 ml 300 ml Exam Free Text/Dictation GENERAL: Alert and oriented x3, PULMONARY: Clear to auscultation bilaterally. some swelling at the previous catheter site, New LIJ catheter CARDIOVASCULAR: S1, S2 present. ABDOMEN: Soft, nontender, nondistended. Bowel sounds positive. Truncal obesity. EXTREMITIES: Right lower extremity: Palpable femoral pulse, no hematoma, nonpalpable pedal pulse. Motor, sensory intact. Cap refill 3 seconds. No ulcers or edema. Left lower extremity: Palpable femoral pulse, nonpalpable pedal pulse. Motor, sensory intact. Cap refill 3 to 4 seconds. No edema. Bilateral upper extremities: palpable brachial pulses, Results Result Diagram: 07/29/16 0545 07/29/16 0545 ABEL HEARD MD Jul 29, 2016 17:20
--- NOTE | 2016-07-29 19:17 | DS ---
DATE OF ADMISSION: 07/17/2016 DATE OF DISCHARGE: 07/30/2016 DIAGNOSIS ON ADMISSION: Sepsis. DIAGNOSES ON DISCHARGE: 1. Sepsis. 2. End-stage renal disease. 3. Paroxysmal atrial fibrillation. 4. Thrush. 5. Uremia. 6. Nonsustained ventricular tachycardia. 7. Left cephalic vein thrombosis. 8. Right chest wall hematoma. 9. Failure to thrive. 10. Acute secondary myocardial infarction. HOSPITAL COURSE: A 60-year-old female admitted with fevers, found to have line sepsis in her dialys is catheter. Her dialysis access was removed. She was given a line holiday and being treated with antibiotics. A new Permacath has been placed. She is stable and fit for discharge. On gentamicin with dialysis for about 3 to 4 more days. She is stable and fit for discharge. She is stable with Permacath in place for now. The patient has AV mapping and will follow up with afshan rocha for permanent AV fistula. After the right chest wall catheter was removed, it seemed like she had a little bit of hematoma. T his is stable and can be followed as an outpatient. I spoke with vascular regarding her care plan a nd they agree for discharge. Due to deconditioning, will arrange home safety. The patient had transient atrial fibrillation due to sepsis. We placed her on amiodarone. She does not need anticoagulation. She will require LFTs, TSH and an ophthalmology eval down the line. For sepsis related to serratia, she will finish gentamycin with dialysis for the next 3 to 4 days. Of note, while the patient was in the hospital, her troponin from EKG did not show any acute process . Stress test and cardiology consultation done and she had an echo done. DISCHARGE PLAN: Home. FOLLOWUP: 1. Follow up with primary in [address] Whitaker and Dr. Heard in [address] Lopez [address] Silveira in 3 weeks. DIET: 1800 ADA renal. ACTIVITY: No heavy lifting. DURABLE MEDICAL EQUIPMENT: None except for dialysis catheter. BARRIERS TO DISCHARGE: None. PENDING TESTS: None. FUNCTIONAL STATUS: The patient is awake, alert, agreed to all care plan and options. REASON FOR ADMISSION: Sepsis. ALLERGIES: NO KNOWN DRUG ALLERGIES. LABORATORY DATA: Permacath placed by radiology. Left chest x-ray was clear. IMAGING STUDIES: Ultrasound of the arterial limb shows no acute process in the upper extremities. Venous evaluation in upper extremity shows thrombosed left cephalic vein in the upper forearm, elbow region. Stress test was unremarkable. LV function of 54. Gallbladder ultrasound showed hepatomeg cody, cholelithiasis, small gallstones but no gallbladder wall thickening. The plan at this time has opted to be per the patient to be optimized medically. Does not need card iac catheterization. She is asymptomatic from a cardiac standpoint as well. Cultures are negative for MRSA nares. Blood cultures negative at 5 days from 07/19/2016. From 07/04 serratia macerations was seen, MRSA nares negative. Urine was mixed and colonized. Vancomyc in was dosed per pharmacy. INR 1. Sodium 133, potassium 4.2, chloride 96, bicarbonate 30, BUN of 7 , creatinine of 3.9 glucose of 111, calcium , magnesium of 2, phosphorus 4, AST and ALT of 20 a nd 20, alkaline phosphatase of 147, bilirubin 0.1, troponin is high at 0.8, protein of 6, albumin of 3. Vitamin D level of 24. TSH of 3.9. Triglycerides 159, 203, LDL of 142, HDL low at 29. A1c of 8.4. Troponin as high as 5.3. White cell count of 8, hemoglobin and hematocrit of 9 and 30, MCV 216. DISCHARGE MEDICATIONS: STOPPED MEDICATIONS: None. CONTINUED MEDICATIONS: 1. Benazepril 40. 2. PhosLo 667 three times daily. 3. Iron 325 t.i.d. 4. INH 300 daily. 5. B6 450 daily. 6. Pentoxifylline 400 daily. 7. Levothyroxine 125 mcg daily. ALTERED MEDICATIONS: Nifedipine now 90 daily. NEW MEDICATIONS: 1. Nystatin swish and swallow for 4 times daily one week. 2. Lopressor 50 twice daily. 3. Aspirin 81 daily. 4. Amiodarone 200 daily. 5. Tylenol as needed. Dictated By: ELINA JOHNSON MD AC/NTS Conf#: [id number] DID#: [id number] CC: LY LOPEZ DO; MARLON SILVEIRA DO; PAYTON WHITAKER MD; ARIEL HARRISON MD; ABEL HEARD MD;*EndCC*
[2016-07-29] MEDS: INSULIN GLARGINE [LANtus] 3 ML PEN SC SCH (20:46)
[2016-07-29] MEDS: ATORVASTATIN 40 MG TAB PO SCH (20:47)
[2016-07-29] MEDS: FAMOTIDINE 20 MG TAB PO SCH (20:48)
[2016-07-29] MEDS: SENNA/DOCUSATE NA (8.6MG/50MG) TAB PO SCH (20:48)
[2016-07-29] MEDS: ACETAMINOPHEN 325 MG TAB PO PRN (20:49)
[2016-07-29 22:31] VITALS: BP 124/58; RESP 20
[2016-07-30] VITALS (11 sets, daily range): BP systolic 128–173; BP diastolic 60–78; PULSE 53–57; RESP 16–18
[2016-07-30] MEDS: ACCUCHECK 2 AM XX SCH (01:50)
[2016-07-30] MEDS: morphine 2 MG INJ IV PRN (03:27)
[2016-07-30] MEDS: LEVOTHYROXINE 125 MCG TAB PO SCH (06:06)
[2016-07-30] MEDS: INSULIN ASPART [NOVOLOG] 3 ML PEN SC SCH ×4 (07:57→20:28)
[2016-07-30] MEDS: METOPROLOL 50 MG TAB PO SCH ×2 (08:35→20:31)
[2016-07-30] MEDS: PANTOPRAZOLE (EC) 40 MG TAB PO SCH (08:36)
[2016-07-30] MEDS: PYRIDOXINE 50 MG TAB PO SCH (08:36)
[2016-07-30] MEDS: PENTOXIFYLLINE (SR) 400 MG TAB PO SCH (08:36)
[2016-07-30] MEDS: ASPIRIN (EC) 81 MG TAB PO SCH (08:36)
[2016-07-30] MEDS: NYSTATIN SUSP 5 ML CUP PO SCH ×4 (08:37→20:39)
[2016-07-30] MEDS: ISONIAZID 300 MG TAB PO SCH (08:37)
[2016-07-30] MEDS: CALCIUM ACETATE 667 MG CAP PO SCH ×3 (08:38→17:41)
[2016-07-30] MEDS: ENOXAPARIN 30 MG/0.3 ML SYG SC SCH (08:39)
[2016-07-30] MEDS: LISINOPRIL 20 MG TAB PO SCH ×2 (10:07→20:30)
[2016-07-30] MEDS: NIFEdipine (XL) 90 MG TAB PO SCH (10:07)
[2016-07-30] MEDS: AMIODARONE 200 MG TAB PO SCH ×2 (11:04→11:29)
--- NOTE | 2016-07-30 11:11 | PN ---
DATE: 07/30/2016 SUBJECTIVE: The patient is stable, no acute events overnight. No fevers, chills, nausea or vomitin g. No shortness of breath. OBJECTIVE: VITAL SIGNS: Blood pressure 120/60, respiration 16, pulse 50, temperature 98.2. HEENT: Head is normocephalic. NECK: Supple. HEART: Regular rate. LUNGS: Show diminished breath sounds at base. ABDOMEN: Soft, nontender to palpation without rebound or guarding. EXTREMITIES: Negative for clubbing, cyanosis. No edema. DERMATOLOGIC: No rashes. MUSCULOSKELETAL: No joint effusions. NEUROLOGIC: No change in exam. MEDICATIONS: Reviewed. LABORATORY DATA: Has been reviewed. ASSESSMENT AND PLAN: 1. End-stage renal disease. Plan for dialysis today for 3 hours, 3K bath, calcium 2.5. 2. Hypokalemia, improved. Continue dialysis. 3. Sepsis secondary to underlying infection. Patient clinically improving. Continue antibiotic re gimen. 4. Hypertension. Continue current blood pressure regimen. 5. Anemia of chronic disease. Continue to monitor hemoglobin and hematocrit levels. Continue Epog en. 6. Mineral bone disorder. Continue to monitor calcium and phosphorus levels. Continue phosphate b inders. 7. Diabetes. Continue Accu-Cheks and sliding scale. 8. Atrial fibrillation, rate controlled. Continue medical management. Dictated By: LY MENDEZ/FADUMO Conf#: [id number] DID#: [id number]
--- NOTE | 2016-07-30 12:36 | CONS ---
Date/Time of Note Date/Time of Note DATE: 07/30/16 TIME: 12:35 Assessment/Plan Assessment/Plan Chief Complaint/Hosp Course SUBJECTIVE: No acute changes. The patient is in HD, feels good. No fevers. MICROBIOLOGY: Repeat blood cultures since 07/19/2016 remain negative. ANTIMICROBIALS: The patient is on gentamicin. INDWELLINGS: LSC pcarth. PHYSICAL EXAMINATION: GENERAL: A well-developed, elderly, woman, who is in no distress. HEENT: Head atraumatic, normocephalic. Sclerae anicteric. Buccal mucosa dry. NECK: Supple. CHEST: Chest rise is symmetrical. Breath sounds diminished to the bases. HEART: S1, S2. ABDOMEN: Soft. Bowel tones present. EXTREMITIES: Without cyanosis. SKIN: Patient has pain at the right upper chest catheter site, with some swelling, possible hematoma. No drainage. ASSESSMENT: 1. Resolving sepsis. 2. Status post Serratia marcescens bacteremia. Right chest Perm-A-Cath was discontinued. 3. End-stage renal disease. 4. Possible old hematoma at right chest catheter site. 5. Anemia. 6. Oral candidiasis. 7. Diabetes. PLAN: The patient remains stable. Continue abx for 2 more days, if she gets dose today we can stop it DW staff Problems: Consultation Date/Type/Reason Admit Date/Time Jul 17, 2016 at 20:10 Type of Consultation: id Exam/Review of Systems Vital Signs Vitals Vital Signs Date Time Temp Pulse Resp B/P Pulse Ox O2 Delivery O2 Flow Rate FiO2 07/30/16 07:25 98.2 50 16 128/60 93 07/28/16 08:34 Room Air 07/27/16 13:30 2.0 Intake and Output 07/29/16 07/29/16 07/30/16 15:00 23:00 07:00 Intake Total 640 ml 480 ml Balance 640 ml 480 ml Results Result Diagram: 07/29/16 0545 07/29/16 0545 Results 24 hrs Laboratory Tests Test 07/29/16 16:21 07/29/16 20:39 07/30/16 01:46 07/30/16 07:46 Bedside Glucose 140 153 132 96 Test 07/30/16 11:36 Bedside Glucose 138 Medications Medications Current Medications Acetaminophen (Tylenol Tab) 650 mg Q6H PRN PO PAIN LEVEL 1-3 OR FEVER Last administered on 07/29/16 20:49; Admin Dose 650 MG; Start 07/17/16 at 21:00 Acetaminophen/ Hydrocodone Bitart ([place] (5/325)) 1 tab Q6H PRN PO MODERATE PAIN LEVEL 4-6 Last administered on 07/28/16 10:40; Admin Dose 1 TAB; Start at 21:00 Morphine Sulfate (morphine) 2 mg Q4H PRN IV SEVERE PAIN LEVEL 7-10 Last administered on 07/30/16 03:27; Admin Dose 2 MG; Start 07/17/16 at 21:00 Docusate Sodium (Colace) 100 mg Q12H PRN PO CONSTIPATION Last administered on 06:27; Admin Dose 100 MG; Start 07/17/16 at 21:00 Magnesium Hydroxide (Milk Of Mag) 30 ml DAILY PRN PO CONSTIPATION; Start at 21:00 Sodium Biphosphate/ Sodium Phosphate (Fleet Enema) 133 ml DAILY PRN [place] CONSTIPATION; Start 07/17/16 at 21:00 Nitroglycerin (Nitroglycerin (Sl Tab) 0.4 Mg) 1 tab Q5M PRN SL ANGINA Last administered on 07/19/16 13:57; Admin Dose 1 TAB; Start 07/17/16 at 21:00 Isoniazid (Isoniazid) 300 mg DAILY PO Last administered on 07/30/16 08:37; Admin Dose 300 MG; Start 07/18/16 at 09:00 Pentoxifylline (Trental) 400 mg DAILY PO Last administered on 07/30/16 08:36; Admin Dose 400 MG; Start 07/18/16 at 09:00 Pyridoxine HCl (Vitamin B6) 50 mg DAILY PO Last administered on 07/30/16 08:36 ; Admin Dose 50 MG; Start 07/18/16 at 09:00 Miscellaneous Information 1 ea NOTE XX ; Start 07/18/16 at 05:30 Glucose (Glutose) 15 gm Q15M PRN PO DECREASED GLUCOSE; Start 07/18/16 at 05:30 Glucose (Glutose) 22.5 gm Q15M PRN PO DECREASED GLUCOSE; Start 07/18/16 at 05: 30 Dextrose (D50w Syringe) 25 ml Q15M PRN IV DECREASED GLUCOSE; Start 07/18/16 at 05:30 Dextrose (D50w Syringe) 50 ml Q15M PRN IV DECREASED GLUCOSE; Start 07/18/16 at 05:30 Glucagon (Glucagen) 1 mg Q15M PRN IM DECREASED GLUCOSE; Start 07/18/16 at 05:30 Glucose (Glutose) 15 gm Q15M PRN BUCCAL DECREASED GLUCOSE; Start 07/18/16 at 05 :30 Diagnostic Test (Pha) (Accucheck) 1 ea 02 XX Last administered on 07/30/16 01: 50; Admin Dose 1 EA; Start 07/18/16 at 08:00 Metoprolol Tartrate (Lopressor) 50 mg BID PO Last administered on 07/29/16 10: 09; Admin Dose 50 MG; Start 07/19/16 at 14:00 Atorvastatin Calcium (Lipitor) 40 mg HS PO Last administered on 07/29/16 20:47 ; Admin Dose 40 MG; Start 07/19/16 at 21:00 Epoetin Lico (Epogen (Esrd)) 10,000 units TuThSa@17 SC Last administered on 22:13; Admin Dose 10,000 UNITS; Start 07/21/16 at 17:00 Gentamicin Sulfate (Gentamicin Iv Per Pharmacy) GENTAMICIN PER PHARMACY NOTE XX ; Start 07/20/16 at 14:30 Trimethobenzamide HCl (Tigan) 200 mg Q6H PRN IM NAUSEA AND/OR VOMITING Last administered on 07/22/16 09:53; Admin Dose 200 MG; Start 07/20/16 at 21:00 Nystatin (Nystatin Susp) 5 ml QID PO Last administered on 07/30/16 08:37; Admin Dose 5 ML; Start 07/21/16 at 17:00 Amiodarone HCl (Cordarone) 200 mg DAILY PO Last administered on 07/30/16 11:29 ; Admin Dose 200 MG; Start 07/23/16 at 09:00 Metoclopramide HCl (Reglan) 5 mg Q4 PRN IV NAUSEA AND/OR VOMITING Last administered on 07/29/16 14:58; Admin Dose 5 MG; Start 07/22/16 at 17:00 Lisinopril (Zestril) 20 mg BID PO Last administered on 07/29/16 20:48; Admin Dose 20 MG; Start 07/23/16 at 21:00 Hydralazine HCl (Apresoline) 10 mg Q2H PRN IV ELEVATED BLOOD PRESSURE Last administered on 07/26/16 05:16; Admin Dose 10 MG; Start 07/23/16 at 13:00 Senna/Docusate Sodium (Senokot-S) 2 tab HS PO Last administered on 07/29/16 20 :48; Admin Dose 2 TAB; Start 07/23/16 at 21:00 Insulin Glargine (Lantus) 5 unit HS SC Last administered on 07/29/16 20:46; Admin Dose 5 UNIT; Start 07/23/16 at 21:00 Aspirin (Halfprin) 81 mg DAILY PO Last administered on 07/30/16 08:36; Admin Dose 81 MG; Start 07/26/16 at 09:00 Famotidine (Pepcid) 40 mg HS PO Last administered on 07/29/16 20:48; Admin Dose 40 MG; Start 07/25/16 at 21:00 Nifedipine (Procardia Xl) 90 mg DAILY PO Last administered on 07/29/16 10:09; Admin Dose 90 MG; Start 07/27/16 at 09:00 Enoxaparin Sodium (Lovenox) 30 mg Q24H SC Last administered on 07/30/16 08:39 ; Admin Dose 30 MG; Start 07/29/16 at 09:00 Pantoprazole (Protonix Tab) 40 mg DAILY PO Last administered on 07/30/16 08:36 ; Admin Dose 40 MG; Start 07/29/16 at 09:00 TAI MENESES NP Jul 30, 2016 12:36
[2016-07-30] MEDS: GENTAMICIN 80 MG/NS (PMX) 50 ML IVPB SCH (13:58)
--- NOTE | 2016-07-30 14:00 | DS ---
Date/Time of Note Date/Time of Note DATE: 07/30/16 TIME: 13:29 Discharge Summary Admission/Discharge Info Admit Date/Time Jul 17, 2016 at 20:10 Discharge Date/Time Final Diagnosis 1. Serratia marcescens bacteremia from HD line infection, right chest HD catheter was removed and treated with antibiotics 2. Sepsis, resolved. 3. End-stage renal disease. new left chest Permacath, follow up with nephrology and HD 4. Paroxysmal atrial fibrillation. sinus now, on amiodarone, follow up with cardiology 5. Elevated troponin with negative nuclear cardiac perfusion study 07/23/2016, tachycardia and sepsis related 6. Oral thrush. treated 7. Left cephalic vein thrombosis. 8. Normocytic anemia, CKD related, follow up with PCP. 9. Diabetes mellitus, stable Patient Condition: Stable Procedures [place] [address] Radiology Main Line: [phone] DIAGNOSTIC IMAGING REPORT Patient: BISHNU PHIPPS : 1955 Age: 60 Sex: F MR #: [id number] DOS: 07/23/16 1005 Ordering MD: Filipe Silveira DO Location: [facility] – [place] Room/Bed: [employer] [facility] PROCEDURE: Lexiscan myocardial perfusion study CLINICAL INDICATION: 60 -year-old patient complaining of chest pain. TECHNIQUE: Lexiscan 0.4 mg intravenously separate acquisition gated myocardial perfusion SPECT using Tc 99m Myoview 30.1 mCi intravenously at stress and Tc-99m Myoview, 10.3 mCi intravenously at rest was performed using the rest/stress sequence. Poststress Myoview SPECT images were obtained in the supine position. COMPARISON: No prior studies. FINDINGS: Perfusion images reveal no evidence of perfusion defects. Lexiscan post stress gated SPECT images demonstrate no wall motion abnormalities. IMPRESSION: 1. No evidence of perfusion defects. 2. No wall motion abnormalities. 3. The left ventricle ejection fraction at stress is 54%. A call report was made to Dr. Silveira at 04:54 p.m. on July 23, 2016. RPTAT: HH .Anila Hirsch MD, Date Time Electronically viewed and signed by .Anila Hirsch MD, on 07/23/2016 16:55 .L/ CC: Filipe Silveira Hospital Course 60 years old female was getting HD thought right chest Permacath came in with fever that was from HD catheter infection with Serratia marcescens bacteremia, that was treated with antibiotics and resolved, right chest Permacath was removed and a new Permath was inserted at left chest. Patient developed atrial fibrillation with RVR on 07/19/2016 that was treated and converted to sinus rhythm with amiodarone. Troponin was mildly elevated at peak of 5.33 on 2016. A stress thallium test on 07/23/2016 was negative. The elevated troponin was thought due to sepsis and tachycardia. No further cardiac work up is recommended. A left cephalic vein thrombus was found on 07/24/2016 by US for arm swelling. Home Meds Active Scripts Nystatin (Nystatin) 100,000 Unit/1 Ml Oral.susp, 5 ML PO QID for 7 Days Prov:ELINA JOHNSON MD 07/29/16 Nifedipine (Procardia Xl) 90 Mg Tab.er.24, 90 MG PO DAILY for 14 Days, #14 TAB Prov:ELINA JOHNSON MD 07/29/16 Metoprolol Tartrate* (Lopressor*) 50 Mg Tab, 50 MG PO BID for 14 Days, #30 TAB Prov:ELINA JOHNSON MD 07/29/16 Aspirin* (Aspirin* EC) 81 Mg Tablet.dr, 81 MG PO DAILY for 14 Days Prov:ELINA JOHNSON MD 07/29/16 Amiodarone Hcl* (Amiodarone Hcl*) 200 Mg Tablet, 200 MG PO DAILY for 30 Days, # 30 TAB Prov:ELINA JOHNSON MD 07/29/16 Acetaminophen (MAPAP) 325 Mg Tablet, 650 MG PO Q6H Y for PAIN LEVEL 1-3 OR FEVER for 1 Day, TAB Prov:ELINA JOHNSON MD 07/29/16 Reported Medications Ferrous Sulfate* (Ferrous Sulfate*) 325 Mg Tabec, 325 MG PO TID, TAB 07/17/16 Pentoxifylline* (Pentoxifylline*) 400 Mg Tablet.sa, 400 MG PO DAILY, TAB 07/17/16 Isoniazid* (Isoniazid*) 300 Mg Tablet, 300 MG PO DAILY, TAB 07/17/16 Pyridoxine Hcl* (Pyridoxine Hcl*) 50 Mg Tablet, 50 MG PO DAILY, TAB 07/17/16 Levothyroxine Sodium* (Levothyroxine Sodium*) 125 Mcg Tablet, 125 MCG PO BEFORE BREAKFAST, #30 TAB 07/17/16 Benazepril Hcl* (Benazepril Hcl*) 40 Mg Tablet, 40 MG PO DAILY, #30 TAB 07/17/16 Calcium Acetate* (Calcium Acetate*) 667 Mg Capsule, 1334 MG PO WITH MEALS, #30 CAP 07/17/16 Discontinued Reported Medications Nifedipine* (Nifedipine ER*) 60 Mg Tablet.sa, 60 MG PO DAILY, TAB.SA 07/17/16 Follow-up Plan 1. Follow up with primary in [address] Whitaker and Dr. Segundo in [address] Ndiaye [address] Silveira in 3 weeks. Pending Labs Laboratory Tests Test 07/29/16 16:21 07/29/16 20:39 07/30/16 01:46 07/30/16 07:46 Bedside Glucose 140mg/dL (70-220) 153mg/dL (70-220) 132mg/dL (70-220) 96mg/dL (70-220) Test 07/30/16 11:36 Bedside Glucose 138mg/dL (70-220) CHANDU LUNA MD Jul 30, 2016 13:39
--- NOTE | 2016-07-30 16:46 | RADRPT ---
AMENDMENT: 07/31/2016 3:42:52 PM Eden Yost M.D. Addendum: Upon further review, normal configuration to the hemodialysis catheter is noted with tips in the sup erior vena cava and right atrium. RPTAT: HDC PROCEDURE: XR Chest. CLINICAL INDICATION: Hemodialysis catheter check TECHNIQUE: PA and Lateral views of the chest were obtained while in wheelchair as could not withst and 2 views unassisted. COMPARISON: Chest x-ray 07/24/2016 FINDINGS: A hemodialysis catheter is noted with tip in the superior vena cava and right atrial junction. Its distal tip in the right atrium demonstrates kinking in a reverse Z configuration. Mild cardiomegaly is present with vascular calcifications of the thoracic aorta. Left lower lobe discoid atelectasis or early infiltrate is present with a small left pleural effusion. No pneumothorax is present. IMPRESSION: 1. Kinking of the distal tip of left hemodialysis catheter as described above with tips in the supe rior vena cava and right atrium. 2. No pneumothorax 3. Left lower lobe discoid atelectasis or early infiltrate with small left pleural effusion. 4. Mild cardiomegaly and atherosclerotic vascular disease A call report was made to Patient's Nurse, Olga Nguyen, at 07/30/2016 4:42:39 PM following the comp letion of the examination by the undersigned. RPTAT: HDC .Eden Yost MD, MD Date Time Electronically viewed and signed by .Eden Yost MD, on 07/31/2016 15:43 .C/
[2016-07-30] MEDS: SENNA/DOCUSATE NA (8.6MG/50MG) TAB PO SCH (20:27)
[2016-07-30] MEDS: ATORVASTATIN 40 MG TAB PO SCH (20:27)
[2016-07-30] MEDS: FAMOTIDINE 20 MG TAB PO SCH (20:27)
[2016-07-30] MEDS: INSULIN GLARGINE [LANtus] 3 ML PEN SC SCH (20:37)
[2016-07-31] MEDS: ACCUCHECK 2 AM XX SCH (01:39)
[2016-07-31] MEDS: LEVOTHYROXINE 125 MCG TAB PO SCH (07:00)
[2016-07-31] MEDS: CALCIUM ACETATE 667 MG CAP PO SCH ×3 (07:35→17:24)
[2016-07-31] MEDS: ISONIAZID 300 MG TAB PO SCH ×2 (07:58→12:14)
[2016-07-31] MEDS: ASPIRIN (EC) 81 MG TAB PO SCH ×2 (07:58→12:14)
[2016-07-31] MEDS: METOPROLOL 50 MG TAB PO SCH ×3 (07:58→20:27)
[2016-07-31] MEDS: AMIODARONE 200 MG TAB PO SCH ×2 (07:58→10:37)
[2016-07-31] MEDS: INSULIN ASPART [NOVOLOG] 3 ML PEN SC SCH ×4 (07:58→20:20)
[2016-07-31] MEDS: NIFEdipine (XL) 90 MG TAB PO SCH ×2 (07:58→10:38)
[2016-07-31] MEDS: NYSTATIN SUSP 5 ML CUP PO SCH ×4 (07:58→20:20)
[2016-07-31] MEDS: PANTOPRAZOLE (EC) 40 MG TAB PO SCH (07:59)
[2016-07-31] MEDS: ENOXAPARIN 30 MG/0.3 ML SYG SC SCH ×2 (07:59→12:16)
[2016-07-31] MEDS: PENTOXIFYLLINE (SR) 400 MG TAB PO SCH ×2 (07:59→12:14)
[2016-07-31] MEDS: PYRIDOXINE 50 MG TAB PO SCH ×2 (07:59→12:14)
[2016-07-31] MEDS: LISINOPRIL 20 MG TAB PO SCH ×3 (07:59→20:28)
[2016-07-31 08:17] VITALS: BP 189/79; RESP 20
[2016-07-31] MEDS: hydrALAzine 20 MG INJ IV PRN (12:15)
[2016-07-31] MEDS: METOCLOPRAMIDE 10 MG INJ IV PRN (12:28)
[2016-07-31 12:30] VITALS: BP 188/85; PULSE 59
--- NOTE | 2016-07-31 12:42 | PN ---
DATE: 07/31/2016 SUBJECTIVE: The patient is pending exchange of her Perm-A-Cath. It is hydrogenation still operator at the site. No other events noted. OBJECTIVE: VITAL SIGNS: Blood pressure 189/ 79, respirations 20, pulse 60, temperature 98.4. HEENT: Head is normocephalic. NECK: Supple. HEART: Regular rate. LUNGS: Show diminished breath sounds at the base. ABDOMEN: Soft, nontender to palpation. No rebound or guarding. EXTREMITIES: Negative for clubbing, cyanosis; no edema. CHEST: The patient has a PermCath with tenderness to palpation. NEUROLOGIC: No change in exam. MEDICATIONS: The patient's medications were reviewed. LABORATORY DATA: Has been reviewed. No new labs. ASSESSMENT AND PLAN: 1. End-stage renal disease. The patient is on dialysis Saturday, Saturday, Saturday. She had hemodial ysis yesterday. Plan for dialysis tomorrow. 2. Access. The patient has a Perm-A-Cath with tenderness at the site. We will plan for exchange t alva by Radiology. 3. Hypokalemia, improved. 4. Sepsis secondary to line infection. The patient is clinically improving. Continue current anti biotic regimen. 5. Hypertension. Continue current blood pressure regimen. 6. Anemia of chronic disease. Continue to monitor hemoglobin and hematocrit levels. Continue Epog en. 7. Mineral bone disorder. Continue to monitor calcium and phosphate levels. Continue phosphorus bi nders. 8. Diabetes. Continue Accu-Cheks and insulin sliding scale. 9. Atrial fibrillation, rate controlled. Continue current medical management. Dictated By: LY MENDEZ/FADUMO Conf#: [id number] DID#: [id number]
[2016-07-31 13:09] VITALS: BP 138/62; PULSE 57
--- NOTE | 2016-07-31 13:54 | CONS ---
Date/Time of Note Date/Time of Note DATE: 07/31/16 TIME: 13:53 Assessment/Plan Assessment/Plan Chief Complaint/Hosp Course SUBJECTIVE: No acute changes. The patient is sleeping. No fevers. MICROBIOLOGY: Repeat blood cultures since 07/19/2016 remain negative. ANTIMICROBIALS: Gentamicin. INDWELLINGS: LSC pcarth. PHYSICAL EXAMINATION: GENERAL: A well-developed, elderly, woman, who is in no distress. HEENT: Head atraumatic, normocephalic. Sclerae anicteric. Buccal mucosa dry. NECK: Supple. CHEST: Chest rise is symmetrical. Breath sounds diminished to the bases. HEART: S1, S2. ABDOMEN: Soft. Bowel tones present. EXTREMITIES: Without cyanosis. SKIN: Patient has pain at the right upper chest catheter site, with some swelling, possible hematoma. No drainage. ASSESSMENT: 1. Resolving sepsis. 2. Status post Serratia marcescens bacteremia. Right chest Perm-A-Cath was discontinued. 3. End-stage renal disease. 4. Possible old hematoma at right chest catheter site. 5. Anemia. 6. Oral candidiasis. 7. Diabetes. PLAN: The patient remains stable. Will dc abx and observe DW staff Problems: Consultation Date/Type/Reason Admit Date/Time Jul 17, 2016 at 20:10 Type of Consultation: id Exam/Review of Systems Vital Signs Vitals Vital Signs Date Time Temp Pulse Resp B/P Pulse Ox O2 Delivery O2 Flow Rate FiO2 07/31/16 13:09 57 138/62 07/31/16 08:17 98.5 20 92 07/28/16 08:34 Room Air 07/27/16 13:30 2.0 Intake and Output 07/30/16 07/30/16 07/31/16 15:00 23:00 07:00 Intake Total 550 ml 370 ml 240 ml Output Total 2000 ml Balance -1450 ml 370 ml 240 ml Results Result Diagram: 07/29/16 0545 07/29/16 0545 Results 24 hrs Laboratory Tests Test 07/30/16 16:57 07/30/16 19:47 07/31/16 07:27 07/31/16 11:57 Bedside Glucose 110 178 81 188 Medications Medications Current Medications Acetaminophen (Tylenol Tab) 650 mg Q6H PRN PO PAIN LEVEL 1-3 OR FEVER Last administered on 07/29/16t 20:49; Admin Dose 650 MG; Start 07/17/16 at 21:00 Acetaminophen/ Hydrocodone Bitart ([place] (5/325)) 1 tab Q6H PRN PO MODERATE PAIN LEVEL 4-6 Last administered on 07/28/16 10:40; Admin Dose 1 TAB; Start at 21:00 Morphine Sulfate (morphine) 2 mg Q4H PRN IV SEVERE PAIN LEVEL 7-10 Last administered on 07/30/16 03:27; Admin Dose 2 MG; Start 07/17/16 at 21:00 Docusate Sodium (Colace) 100 mg Q12H PRN PO CONSTIPATION Last administered on 06:27; Admin Dose 100 MG; Start 07/17/16 at 21:00 Magnesium Hydroxide (Milk Of Mag) 30 ml DAILY PRN PO CONSTIPATION; Start at 21:00 Sodium Biphosphate/ Sodium Phosphate (Fleet Enema) 133 ml DAILY PRN [place] CONSTIPATION; Start 07/17/16 at 21:00 Nitroglycerin (Nitroglycerin (Sl Tab) 0.4 Mg) 1 tab Q5M PRN SL ANGINA Last administered on 07/19/16 13:57; Admin Dose 1 TAB; Start 07/17/16 at 21:00 Isoniazid (Isoniazid) 300 mg DAILY PO Last administered on 07/31/16 12:14; Admin Dose 300 MG; Start 07/18/16 at 09:00 Pentoxifylline (Trental) 400 mg DAILY PO Last administered on 07/31/16 12:14; Admin Dose 400 MG; Start 07/18/16 at 09:00 Pyridoxine HCl (Vitamin B6) 50 mg DAILY PO Last administered on 07/31/16 12:14 ; Admin Dose 50 MG; Start 07/18/16 at 09:00 Miscellaneous Information 1 ea NOTE XX ; Start 07/18/16 at 05:30 Glucose (Glutose) 15 gm Q15M PRN PO DECREASED GLUCOSE; Start 07/18/16 at 05:30 Glucose (Glutose) 22.5 gm Q15M PRN PO DECREASED GLUCOSE; Start 07/18/16 at 05: 30 Dextrose (D50w Syringe) 25 ml Q15M PRN IV DECREASED GLUCOSE; Start 07/18/16 at 05:30 Dextrose (D50w Syringe) 50 ml Q15M PRN IV DECREASED GLUCOSE; Start 07/18/16 at 05:30 Glucagon (Glucagen) 1 mg Q15M PRN IM DECREASED GLUCOSE; Start 07/18/16 at 05:30 Glucose (Glutose) 15 gm Q15M PRN BUCCAL DECREASED GLUCOSE; Start 07/18/16 at 05 :30 Diagnostic Test (Pha) (Accucheck) 1 ea 02 XX Last administered on 07/30/16 01: 50; Admin Dose 1 EA; Start 07/18/16 at 08:00 Metoprolol Tartrate (Lopressor) 50 mg BID PO Last administered on 07/31/16 10: 36; Admin Dose 50 MG; Start 07/19/16 at 14:00 Atorvastatin Calcium (Lipitor) 40 mg HS PO Last administered on 07/30/16 20:27 ; Admin Dose 40 MG; Start 07/19/16 at 21:00 Epoetin Lico (Epogen (Esrd)) 10,000 units TuThSa@17 SC Last administered on 22:13; Admin Dose 10,000 UNITS; Start 07/21/16 at 17:00 Gentamicin Sulfate (Gentamicin Iv Per Pharmacy) GENTAMICIN PER PHARMACY NOTE XX ; Start 07/20/16 at 14:30 Trimethobenzamide HCl (Tigan) 200 mg Q6H PRN IM NAUSEA AND/OR VOMITING Last administered on 07/22/16 09:53; Admin Dose 200 MG; Start 07/20/16 at 21:00 Nystatin (Nystatin Susp) 5 ml QID PO Last administered on 07/31/16 12:14; Admin Dose 5 ML; Start 07/21/16 at 17:00 Amiodarone HCl (Cordarone) 200 mg DAILY PO Last administered on 07/31/16 10:37 ; Admin Dose 200 MG; Start 07/23/16 at 09:00 Metoclopramide HCl (Reglan) 5 mg Q4 PRN IV NAUSEA AND/OR VOMITING Last administered on 07/31/16 12:28; Admin Dose 5 MG; Start 07/22/16 at 17:00 Lisinopril (Zestril) 20 mg BID PO Last administered on 07/31/16 10:36; Admin Dose 20 MG; Start 07/23/16 at 21:00 Hydralazine HCl (Apresoline) 10 mg Q2H PRN IV ELEVATED BLOOD PRESSURE Last administered on 07/31/16 12:15; Admin Dose 10 MG; Start 07/23/16 at 13:00 Senna/Docusate Sodium (Senokot-S) 2 tab HS PO Last administered on 07/30/16 20 :27; Admin Dose 2 TAB; Start 07/23/16 at 21:00 Insulin Glargine (Lantus) 5 unit HS SC Last administered on 07/30/16 20:37; Admin Dose 5 UNIT; Start 07/23/16 at 21:00 Aspirin (Halfprin) 81 mg DAILY PO Last administered on 07/31/16 12:14; Admin Dose 81 MG; Start 07/26/16 at 09:00 Famotidine (Pepcid) 40 mg HS PO Last administered on 07/30/16 20:27; Admin Dose 40 MG; Start 07/25/16 at 21:00 Nifedipine (Procardia Xl) 90 mg DAILY PO Last administered on 07/31/16 10:38; Admin Dose 90 MG; Start 07/27/16 at 09:00 Enoxaparin Sodium (Lovenox) 30 mg Q24H SC Last administered on 07/31/16 12:16 ; Admin Dose 30 MG; Start 07/29/16 at 09:00 Pantoprazole (Protonix Tab) 40 mg DAILY PO Last administered on 07/30/16 08:36 ; Admin Dose 40 MG; Start 07/29/16 at 09:00 TAI MENESES NP Jul 31, 2016 13:54
--- NOTE | 2016-07-31 15:42 | DS ---
Date/Time of Note Date/Time of Note DATE: 07/31/16 TIME: 15:41 Discharge Summary Admission/Discharge Info Admit Date/Time Jul 17, 2016 at 20:10 Discharge Date/Time Final Diagnosis 1. Serratia marcescens bacteremia from HD line infection, right chest HD catheter was removed and treated with antibiotics 2. Sepsis, resolved. 3. End-stage renal disease. new left chest Permacath, follow up with nephrology and HD 4. Paroxysmal atrial fibrillation. sinus now, on amiodarone, follow up with cardiology 5. Elevated troponin with negative nuclear cardiac perfusion study 07/23/2016, tachycardia and sepsis related 6. Oral thrush. treated 7. Left cephalic vein thrombosis. 8. Normocytic anemia, CKD related, follow up with PCP. 9. Diabetes mellitus, stable Hospital Course 60 years old female was getting HD thought right chest Permacath came in with fever that was from HD catheter infection with Serratia marcescens bacteremia, that was treated with antibiotics and resolved, right chest Permacath was removed and a new Permath was inserted at left chest. Patient developed atrial fibrillation with RVR on 07/19/2016 that was treated and converted to sinus rhythm with amiodarone. Troponin was mildly elevated at peak of 5.33 on 2016. A stress thallium test on 07/23/2016 was negative. The elevated troponin was thought due to sepsis and tachycardia. No further cardiac work up is recommended. A left cephalic vein thrombus was found on 07/24/2016 by US for arm swelling. Home Meds Active Scripts Nystatin (Nystatin) 100,000 Unit/1 Ml Oral.susp, 5 ML PO QID for 7 Days Prov:ELINA JOHNSON MD 07/29/16 Nifedipine (Procardia Xl) 90 Mg Tab.er.24, 90 MG PO DAILY for 14 Days, #14 TAB Prov:ELINA JOHNSON MD 07/29/16 Metoprolol Tartrate* (Lopressor*) 50 Mg Tab, 50 MG PO BID for 14 Days, #30 TAB Prov:ELINA JOHNSON MD 07/29/16 Aspirin* (Aspirin* EC) 81 Mg Tablet.dr, 81 MG PO DAILY for 14 Days Prov:ELINA JOHNSON MD 07/29/16 Amiodarone Hcl* (Amiodarone Hcl*) 200 Mg Tablet, 200 MG PO DAILY for 30 Days, # 30 TAB Prov:ELINA JOHNSON MD 07/29/16 Acetaminophen (MAPAP) 325 Mg Tablet, 650 MG PO Q6H Y for PAIN LEVEL 1-3 OR FEVER for 1 Day, TAB Prov:ELINA JOHNSON MD 07/29/16 Reported Medications Ferrous Sulfate* (Ferrous Sulfate*) 325 Mg Tabec, 325 MG PO TID, TAB 07/17/16 Pentoxifylline* (Pentoxifylline*) 400 Mg Tablet.sa, 400 MG PO DAILY, TAB 07/17/16 Isoniazid* (Isoniazid*) 300 Mg Tablet, 300 MG PO DAILY, TAB 07/17/16 Pyridoxine Hcl* (Pyridoxine Hcl*) 50 Mg Tablet, 50 MG PO DAILY, TAB 07/17/16 Levothyroxine Sodium* (Levothyroxine Sodium*) 125 Mcg Tablet, 125 MCG PO BEFORE BREAKFAST, #30 TAB 07/17/16 Benazepril Hcl* (Benazepril Hcl*) 40 Mg Tablet, 40 MG PO DAILY, #30 TAB 07/17/16 Calcium Acetate* (Calcium Acetate*) 667 Mg Capsule, 1334 MG PO WITH MEALS, #30 CAP 07/17/16 Discontinued Reported Medications Nifedipine* (Nifedipine ER*) 60 Mg Tablet.sa, 60 MG PO DAILY, TAB.SA 07/17/16 Follow-up Plan 1. Follow up with primary in [address] Whitaker and Dr. Segundo in [address] Ndiaye [address] Silveira in 3 weeks Pending Labs Laboratory Tests Test 07/30/16 16:57 07/30/16 19:47 07/31/16 07:27 07/31/16 11:57 Bedside Glucose 110mg/dL (70-220) 178mg/dL (70-220) 81mg/dL (70-220) 188mg/dL (70-220) CHANDU LUNA MD Jul 31, 2016 15:42
[2016-07-31] MEDS: EPOETIN 10000 UNITS/1 ML INJ (ESRD) SC SCH (17:23)
[2016-07-31 19:36] VITALS: BP 113/57; RESP 21
[2016-07-31] MEDS: FAMOTIDINE 20 MG TAB PO SCH (20:19)
[2016-07-31] MEDS: SENNA/DOCUSATE NA (8.6MG/50MG) TAB PO SCH (20:19)
[2016-07-31] MEDS: ATORVASTATIN 40 MG TAB PO SCH (20:20)
[2016-07-31] MEDS: INSULIN GLARGINE [LANtus] 3 ML PEN SC SCH (20:24)
== END 2016-07-31 23:25 | disposition home health service (06) | DRG 314 ==
LOC: E/R 16:07 → MS4 20:10 → ICU 07-19 16:09 → MS4 07-21 19:10 → PP2 07-27 22:37
PROVIDERS: ADMIT Hospitalist; ATTEND Hospitalist
PROC: 5A1D60Z (ICD-10-PCS; 2016-07-18)
PROC: 02PY33Z Removal of Infusion Device from Great Vessel, Percutaneous Approach (ICD-10-PCS; 2016-07-20)
PROC: 06HM33Z Insertion of Infusion Device into Right Femoral Vein, Percutaneous Approach (ICD-10-PCS; principal; 2016-07-23 12:00)
PROC: 02H633Z Insertion of Infusion Device into Right Atrium, Percutaneous Approach (ICD-10-PCS; 2016-07-27)
DX: T80.211A Bloodstream infection due to central venous catheter, initial encounter (principal); A41.53 Sepsis due to Serratia; I47.2 Ventricular tachycardia; I12.0 Hypertensive chronic kidney disease with stage 5 chronic kidney disease or end stage renal disease; N18.6 End stage renal disease; B37.0 Candidal stomatitis; I82.612 Acute embolism and thrombosis of superficial veins of left upper extremity; L76.32 Postprocedural hematoma of skin and subcutaneous tissue following other procedure; E11.22 Type 2 diabetes mellitus with diabetic chronic kidney disease; I16.0 Hypertensive urgency; E83.9 Disorder of mineral metabolism, unspecified; D63.1 Anemia in chronic kidney disease; I48.91 Unspecified atrial fibrillation; E78.5 Hyperlipidemia, unspecified; E03.9 Hypothyroidism, unspecified; E87.5 Hyperkalemia; Y83.8 Other surgical procedures as the cause of abnormal reaction of the patient, or of later complication, without mention of misadventure at the time of the procedure; Y92.238 Other place in hospital as the place of occurrence of the external cause; Z99.2 Dependence on renal dialysis
CPT/HCPCS: 36415; 36430; 36558; 71010; 71020; 76705; 76942; 78452; 80048; 80053; 80061; 80202; 81001; 81003; 82306; 82550; 82553; 82962; 83036; 83605; 83735; 84100; 84439; 84443; 84484; 85025; 85610; 85730; 86850; 86900; 86901; 86920; 87040; 87070; 87081; 87086; 90935; 93005; 93017; 93306; 93923; 93970; 96365; 96366; 96368; 96375; 97162; A9500; A9505; J0282; J0360; J0690; J0692; J0886; J1580; J1644; J1650; J1815; J2250; J2270; J2405; J2765; J2785; J3010; J3250; J3370; J3475; J7030; J7040; J7050; J7060; P9016

== ENCOUNTER 2016-10-12 08:04 | Day surgery (SDC) | payer OTHER ==
[~2016-10-12] VITALS: Ht 162.6 cm; Wt 81.7 kg
[2016-10-12] VITALS (11 sets, daily range): BP systolic 154–207; BP diastolic 71–104; PULSE 66–90; RESP 10–25; Ht 162.6 cm; Wt 81.7 kg
[~2016-10-12 08:04] MED LIST: ACET325T40 PO; AMIO200T2 PO; ASPI-664 PO; BENA40TA41 PO; CALC667C PO; FER325 PO; ISON300T72 PO; LEVO125T75 PO; METO-429 PO; NIFE90TA PO; NYST1000 PO; PENT400T2 PO; PYRI50TA14 PO
[2016-10-12] MEDS ORDERED: ONDANSETRON 4 MG INJ IV PRN (09:00)
[2016-10-12] MEDS ORDERED: EPHEDrine SULFATE 50 MG/5 ML SYG IV PRN (09:00)
[2016-10-12] MEDS ORDERED: DIPHENHYDRAMINE 50 MG INJ IV PRN (09:00)
[2016-10-12] MEDS ORDERED: ATROPINE 1 MG/10 ML SYRINGE IV PRN (09:00)
[2016-10-12] MEDS ORDERED: MIDAZOLAM 1 MG/ML 2 ML INJ IV PRN (09:00)
[2016-10-12] MEDS ORDERED: morphine (1 MG/ML) 10ML SYRINGE IV PRN ×3 (09:00)
[2016-10-12] MEDS ORDERED: OXYCODONE/ACETAMINOPHEN (5/325) TAB PO PRN ×2 (09:00)
[2016-10-12] MEDS ORDERED: FENTAnyl 50 MCG/ML VIAL IV PRN ×2 (09:00)
[2016-10-12] MEDS ORDERED: HYDROmorphONE (0.2 MG/ML) 10ML SYG IV PRN ×2 (09:00)
[2016-10-12] MEDS ORDERED: MEPERIDINE 25 MG INJ IV PRN (09:00)
[2016-10-12] MEDS ORDERED: ROCURONIUM 50 MG INJ ONE (09:34)
[2016-10-12] MEDS ORDERED: PROPOFOL 20 ML ONE (09:34)
[2016-10-12] MEDS ORDERED: LIDOCAINE 2% (SDV) 5 ML INJ ONE (09:34)
[2016-10-12] MEDS ORDERED: GLYCOPYRROLATE 0.4 MG INJ ONE (09:34)
[2016-10-12] MEDS ORDERED: NEOSTIGMINE 3 MG/3 ML SYRINGE ONE (09:34)
[2016-10-12] MEDS ORDERED: MIDAZOLAM 1 MG/ML 2 ML INJ ONE (09:35)
[2016-10-12] MEDS ORDERED: FENTAnyl 50 MCG/ML VIAL ONE (09:35)
[2016-10-12] MEDS ORDERED: DEXAMETHASONE 4 MG/ML 1 ML INJ ONE (09:40)
[2016-10-12] MEDS ORDERED: ONDANSETRON 4 MG INJ ONE (09:40)
[2016-10-12 09:42] LABS: ADD SCAN DIFF NO
[2016-10-12 09:51] LABS: BASOPHILS % 0.5 % (0.0-2.0); EOSINOPHILS # 0.3 10^3/ul (0.0-0.5); EOSINOPHILS % 3.9 % (0.0-7.0); HEMATOCRIT 34.7 % (37.0-47.0); HEMOGLOBIN 11.1 g/dl (12.0-16.0); LYMPHOCYTES % 11.5 % (15.0-51.0); MEAN CORPUSCULAR HEMOGLOBIN 29.6 pg (29.0-33.0); MEAN CORPUSCULAR VOLUME 92.5 fl (82.0-101.0); MEAN PLATELET VOLUME 11.7 fl (7.4-10.4); MONOCYTE # 0.8 10^3/ul (0.3-0.9); MONOCYTES % 9.2 % (0.0-11.0); NEUTROPHIL # 6.2 10^3/ul (1.6-7.5); NEUTROPHILS % 74.3 % (39.0-77.0); PLATELET COUNT 167 10^3/UL (140-415); RED BLOOD COUNT 3.75 10^6/ul (4.20-5.40); RED CELL DISTRIBUTION WIDTH 15.1 % (11.5-14.5); WHITE BLOOD COUNT 8.3 10^3/ul (4.8-10.8)
[2016-10-12 10:01] LABS: PROTIME 13.2 Sec (12.2-14.2)
--- NOTE | 2016-10-12 10:03 | HPN ---
Date/Time of Note Date/Time of Note DATE: 10/12/16 TIME: 10:03 Interval H&P Admission Note Pt. seen H&P reviewed: No system changes KYLE MONCADA MD Oct 12, 2016 10:03
[2016-10-12 10:06] LABS: ALBUMIN 4.6 g/dl (3.3-4.9); ALBUMIN/GLOBULIN RATIO 1.27; BILIRUBIN,INDIRECT 0.1 mg/dl (0-1.1); BILIRUBIN,TOTAL 0.1 mg/dl (0.2-1.3); TOTAL PROTEIN 8.2 g/dl (6.1-8.1)
[2016-10-12 10:15] LABS: CALCIUM 8.5 mg/dl (8.4-10.2); CREATININE 5.22 mg/dl (0.44-1.00)
[2016-10-12 10:17] LABS: POTASSIUM 5.8 mmol/L (3.5-5.1)
[2016-10-12] MEDS ORDERED: CEFAZOLIN 1 GM INJ ONE (10:36)
[2016-10-12] MEDS ORDERED: HEPARIN 1000 UNITS/ML 10 ML INJ IRR ONE (10:48)
[2016-10-12] MEDS ORDERED: LIDOCAINE 1% (MPF) 30 ML INJ INJ ONE (10:48)
[2016-10-12] MEDS: hydrALAzine 20 MG INJ IV PRN ×3 (11:37→12:13)
[2016-10-12] MEDS: LABETALOL HCL 20MG INJ IV PRN ×3 (11:48→12:13)
[2016-10-12] MEDS: HYDROmorphONE (0.2 MG/ML) 10ML SYG IV PRN ×2 (12:07→12:20)
[2016-10-12] MEDS ORDERED: ONDANSETRON 4 MG INJ IV STA (13:05)
[2016-10-12] MEDS ORDERED: METOCLOPRAMIDE 10 MG INJ IM ONE (15:00)
[2016-10-12] MEDS ORDERED: METOCLOPRAMIDE 10 MG INJ IV ONE (15:00)
--- NOTE | 2016-10-12 17:27 | OPR ---
DATE OF OPERATION: 10/12/2016 PREOPERATIVE DIAGNOSIS: End-stage renal disease. POSTOPERATIVE DIAGNOSIS: End-stage renal disease. PROCEDURE PERFORMED: Creation of left radiocephalic arteriovenous fistula. SURGEON: Kyle Balbunea MD ANESTHESIA: Local with sedation. ESTIMATED BLOOD LOSS: Minimal. COMPLICATIONS: No intraprocedural complications. INDICATIONS: This is a 60-year-old diabetic hypertensive woman with end-stage renal disease on dial ysis via a Perm-A-Cath. I vein mapped her left arm. She has a good cephalic vein in the forearm, a nd it is gone in the upper arm that the cephalic vein in the forearm connects to the basilic vein i n the upper arm, which is patent. I brought her in today for creation of a left radiocephalic AV fi stula. DESCRIPTION OF PROCEDURE: Patient was brought to the operating room and placed on the table in the supine position after left arm was prepped and draped in the usual sterile fashion. I began by infi ltrating over the cephalic vein in the distal wrist area and I extended down over the radial artery pulse. I then made an S-shaped incision beginning on the cephalic vein over the cephalic vein dista lly and extending a little more medially over the radial artery pulse. I then dissected through the subcutaneous tissues using electrocautery. We carefully dissected out the cephalic vein down to th e wrist. I ligated it distally with surgical clips and divided it there. I then flushed with hepar inized saline. It flushed easily and was a good sized vein. I then cut the connective tissue overl jeimy the radial artery pulse, dissected out several a centimeter segment of radial artery proximally and distally, and made an 8 mm ____anterior arteriotomy. I spatulated the end of the cephalic vein and took the arteriotomy and anastomosed the end of the vein to the ____artery using 6-0 Prolene moody ture in a running standard surgical fashion. I removed the clamps. The vein distended nicely and t here was still a little bit of spasm, but there a was good pulsatile thrill in the fistula. There w as good hemostasis. I closed the skin incision in 2 layers using an inner layer of 3-0 Vicryl and a n outer layer of 4-0 Monocryl subcuticular sutures. Sterile dressing was applied. The patient was transferred to recovery ____. She tolerated the procedure well without any complications. Dictated By: KYLE FONSECA/FADUMO Conf#: [id number] DID#: [id number] CC: Meredith Tony MD;*EndCC*
--- NOTE | 2016-10-13 16:58 | RADRPT ---
Vent Rate: 66 bpm RR Interval: 0 msec NC Interval: 128 msec QRS Duration: 78 msec QT Interval: 450 msec QTC Interval: 471 msec P-R-T [place]: 25 - -1 - 83 degrees Normal sinus rhythm Prolonged QT Lateral T-wave abnormalities c/w ischemia Abnormal ECG No previous tracing available for comparison Electronically Signed By: Michi Mosley [id number]
== END 2016-10-12 15:40 | disposition home or self-care (01) ==
LOC: EDBD 08:04 → SDS 08:04
PROVIDERS: ATTEND Surgery Vascular Surgery
DX: I12.0 Hypertensive chronic kidney disease with stage 5 chronic kidney disease or end stage renal disease (principal); N18.6 End stage renal disease; E11.9 Type 2 diabetes mellitus without complications
CPT/HCPCS: 36821; 80053; 82962; 85025; 85610; 85730; 93005; J0360; J0690; J1100; J1170; J1644; J2175; J2250; J2405; J2765; J3010; Z7512; Z7610; C1725; J2710

== ENCOUNTER 2016-11-13 14:44 | Inpatient (IN) | payer OTHER ==
[~2016-11-13] VITALS: Ht 162.6 cm; Wt 87.9 kg
[2016-11-13] MEDS ORDERED: LABETALOL HCL 20MG INJ IV ONE ×2 (15:30→17:30)
[2016-11-13] MEDS ORDERED: ALTEPLASE (CATHFLO) 2 MG INJ CATHETER ONE ×2 (15:30→16:00)
[2016-11-13 15:47] LABS: ADD SCAN DIFF NO
[2016-11-13 15:50] LABS: BASOPHILS % 0.6 % (0.0-2.0); EOSINOPHILS # 0.3 10^3/ul (0.0-0.5); EOSINOPHILS % 4.3 % (0.0-7.0); HEMATOCRIT 36.8 % (37.0-47.0); HEMOGLOBIN 11.9 g/dl (12.0-16.0); LYMPHOCYTES # 0.9 10^3/ul (0.8-2.9); LYMPHOCYTES % 12.2 % (15.0-51.0); MEAN CORPUSCULAR HEMOGLOBIN 31.2 pg (29.0-33.0); MEAN CORPUSCULAR HGB CONC 32.3 g/dl (32.0-37.0); MEAN CORPUSCULAR VOLUME 96.3 fl (82.0-101.0); MEAN PLATELET VOLUME 10.3 fl (7.4-10.4); MONOCYTE # 0.6 10^3/ul (0.3-0.9); MONOCYTES % 9.2 % (0.0-11.0); NEUTROPHILS % 72.1 % (39.0-77.0); PLATELET COUNT 207 10^3/UL (140-415); RED BLOOD COUNT 3.82 10^6/ul (4.20-5.40); RED CELL DISTRIBUTION WIDTH 17.1 % (11.5-14.5)
[2016-11-13 16:10] LABS: CALCIUM 7.8 mg/dl (8.4-10.2); CREATININE 5.88 mg/dl (0.44-1.00)
[2016-11-13] MEDS ORDERED: BUME1TAB18 PO (16:22)
[2016-11-13] MEDS ORDERED: FOLI-49 PO (16:23)
[2016-11-13] MEDS ORDERED: GABA100C14 PO (16:23)
[2016-11-13] MEDS ORDERED: NIFE30TA60 PO (16:24)
[2016-11-13] MEDS ORDERED: NPH SQ (16:25)
[2016-11-13] MEDS ORDERED: ERGO500037 PO (16:26)
[2016-11-13] MEDS ORDERED: NIFE60TA2 PO (16:29)
[2016-11-13] MEDS ORDERED: RIFA150T PO (16:31)
[2016-11-13] MEDS ORDERED: ZINC220C5 PO (16:32)
--- NOTE | 2016-11-13 18:19 | ERA ---
ER Documentation Chief Complaint Date/Time DATE: 11/13/16 TIME: 18:09 Chief Complaint dialysis cath not working,sent from dialysis center received 1 hr of dialys HPI This 61-year-old female came immediately from dialysis because her left-sided Milton catheter is not functioning. She also feels very uncomfortable and states that she gets this way when her blood pressure is very high. She cannot describe any specific symptoms. She has had problems with it before. She was not able to receive any dialysis. She has a left arm fistula that was recently placed but has not been cleared to use yet. She does have an appointment on December 04 to get it checked. Review the patient's EMR and see that is Dr. Quick to perform the most recent surgery to her left arm graft. ROS All systems reviewed and are negative except as per history of present illness. Medications Home Meds Reported Medications Zinc Sulfate* (Zinc Sulfate*) 220 Mg Cap, 220 MG PO TID, CAP 11/13/16 Rifapentine (Priftin) 150 Mg Tablet, 900 MG PO Q7D, TAB TAKE 6TAB Q Saturdays11/13/16 Nifedipine (Procardia Xl) 60 Mg Tab.er.24, 60 MG PO QPM, TAB 11/13/16 Ergocalciferol (Vitamin D2) (VITAMIN D2) 50,000 Unit Capsule, 76093 UNIT PO Q SATURDAYS, CAP 11/13/16 Insulin Human Nph (Novolin-N) 100 Units/Ml Susp, 10 UNIT SQ BID TAKE QAM AND QHS 11/13/16 Nifedipine* (Nifedipine ER*) 30 Mg Tablet.sa, 30 MG PO QAM, TAB.SA 11/13/16 Gabapentin* (Gabapentin*) 100 Mg Capsule, 100 MG PO TID, #90 CAP 11/13/16 Folic Acid* (Folic Acid*) 1 Mg Tablet, 1 MG PO DAILY, TAB 11/13/16 Bumetanide* (Bumetanide*) 1 Mg Tablet, 2 MG PO BID, TAB 11/13/16 Pentoxifylline* (Pentoxifylline*) 400 Mg Tablet.sa, 400 MG PO DAILY, TAB 07/17/16 Isoniazid* (Isoniazid*) 300 Mg Tablet, 900 MG PO Q SATURDAYS, TAB 07/17/16 Pyridoxine Hcl* (Pyridoxine Hcl*) 50 Mg Tablet, 50 MG PO DAILY, TAB 07/17/16 Levothyroxine Sodium* (Levothyroxine Sodium*) 125 Mcg Tablet, 125 MCG PO BEFORE BREAKFAST, #30 TAB 07/17/16 Benazepril Hcl* (Benazepril Hcl*) 40 Mg Tablet, 40 MG PO DAILY, #30 TAB 07/17/16 Calcium Acetate* (Calcium Acetate*) 667 Mg Capsule, 1334 MG PO WITH MEALS, #30 CAP 07/17/16 Discontinued Reported Medications Ferrous Sulfate* (Ferrous Sulfate*) 325 Mg Tabec, 325 MG PO TID, TAB 07/17/16 Discontinued Scripts Nystatin (Nystatin) 100,000 Unit/1 Ml Oral.susp, 5 ML PO QID for 7 Days Prov:ELINA JOHNSON MD 07/29/16 Nifedipine (Procardia Xl) 90 Mg Tab.er.24, 90 MG PO DAILY for 14 Days, #14 TAB Prov:ELINA JOHNSON MD 07/29/16 Metoprolol Tartrate* (Lopressor*) 50 Mg Tab, 50 MG PO BID for 14 Days, #30 TAB Prov:ELINA JOHNSON MD 07/29/16 Aspirin* (Aspirin* EC) 81 Mg Tablet.dr, 81 MG PO DAILY for 14 Days Prov:ELINA JOHNSON MD 07/29/16 Amiodarone Hcl* (Amiodarone Hcl*) 200 Mg Tablet, 200 MG PO DAILY for 30 Days, # 30 TAB Prov:ELINA JOHNSON MD 07/29/16 Acetaminophen (MAPAP) 325 Mg Tablet, 650 MG PO Q6H Y for PAIN LEVEL 1-3 OR FEVER for 1 Day, TAB Prov:ELINA JOHNSON MD 07/29/16 Allergies Allergies: Coded Allergies: No Known Allergy (Unverified , 11/13/16) PMhx/Soc History of Surgery: Yes (PERMA CATH PLACEMENT X2) Anesthesia Reaction: No Hx Neurological Disorder: No Hx Respiratory Disorders: No Hx Cardiac Disorders: Yes (HTN) Hx Psychiatric Problems: No Hx Miscellaneous Medical Probl: Yes (HEMODIALYSIS PATIENT T,TH,S, DM) Hx Alcohol Use: No Hx Substance Use: No Hx Tobacco Use: No Smoking Status: Never smoker Physical Exam Vitals Vital Signs Date Time Temp Pulse Resp B/P Pulse Ox O2 Delivery O2 Flow Rate FiO2 11/13/16 19:00 72 18 162/77 100 Room Air 11/13/16 18:10 72 16 207/87 99 Room Air 11/13/16 17:10 71 18 202/90 100 Room Air 11/13/16 14:45 97.6 83 18 217/95 99 Physical Exam Const: [] Mild distress Head: Atraumatic Eyes: Normal Conjunctiva ENT: Normal External Ears, Nose and Mouth. Neck: Full range of motion..~ No meningismus. Resp: Clear to auscultation bilaterally Cardio: Regular rate and rhythm, no murmurs Abd: Soft, non tender, non distended. Normal bowel sounds Skin: No petechiae or rashes Back: No midline or flank tenderness Ext: No cyanosis, or edema, left lateral lower arm fistula with palpable thrill, chest wall with double-lumen dialysis catheter in place with no surrounding erythema. Clean dry and intact. Neur: Awake and alert and oriented 3, no focal deficits Psych: Normal Mood and Affect Result Diagram: 11/13/16 1525 11/13/16 1525 Results 24 hrs Laboratory Tests Test 11/13/16 15:25 White Blood Count 7.010^3/ul Red Blood Count 3.8210^6/ul Hemoglobin 11.9g/dl Hematocrit 36.8% Mean Corpuscular Volume 96.3fl Mean Corpuscular Hemoglobin 31.2pg Mean Corpuscular Hemoglobin Concent 32.3g/dl Red Cell Distribution Width 17.1% Platelet Count 74091^3/UL Mean Platelet Volume 10.3fl Neutrophils % 72.1% Lymphocytes % 12.2% Monocytes % 9.2% Eosinophils % 4.3% Basophils % 0.6% Nucleated Red Blood Cells % 0.0/100WBC Neutrophils # 5.010^3/ul Lymphocytes # 0.910^3/ul Monocytes # 0.610^3/ul Eosinophils # 0.310^3/ul Basophils # 0.010^3/ul Nucleated Red Blood Cells # 0.010^3/ul Sodium Level 135mmol/L Potassium Level 5.0mmol/L Chloride Level 97mmol/L Carbon Dioxide Level 27mmol/L Anion Gap 16 Blood Urea Nitrogen 40mg/dl Creatinine 5.88mg/dl Glucose Level 171mg/dl Calcium Level 7.8mg/dl Current Medications Medications (Trade) Dose Ordered Sig/Aries Route PRN Reason Start Time Stop Time Status Last Admin Dose Admin Alteplase, Recombinant (Cathflo (Activase)) 2 mg ONCE ONCE CATHETER 11/13/16 15:30 11/13/16 15:31 DC 11/13/16 16:00 Labetalol HCl (Labetalol) 10 mg ONCE ONCE IV 11/13/16 15:30 11/13/16 15:31 DC 11/13/16 16:03 Alteplase, Recombinant (Cathflo (Activase)) 2 mg ONCE ONCE CATHETER 11/13/16 16:00 11/13/16 16:01 DC 11/13/16 16:00 Labetalol HCl (Labetalol) 20 mg ONCE ONCE IV 11/13/16 17:30 11/13/16 17:31 DC 11/13/16 17:23 Hydralazine HCl (Apresoline) 10 mg ONCE ONCE IV 11/13/16 18:30 11/13/16 18:31 DC 11/13/16 18:27 Ondansetron HCl (Zofran Inj) 4 mg ER BRIDGE PRN IV NAUSEA AND/OR VOMITING 11/13/16 19:00 11/14/16 18:59 Acetaminophen (Tylenol Tab) 650 mg ER BRIDGE PRN PO MILD PAIN/FEVER 11/13/16 19:00 11/14/16 18:59 Procedures/MDM Dialysis patient with inability to obtain access with dialysis due today. Cathflo was placed in both ports of the catheter and after 1 hour we were still unable to get any flow through the catheter. Called Dr. Michi Balbuena was placed 2. Patient also has refractory severe hypertension. She received 30 mg of labetalol total. Systolic blood pressure still greater than 200 her heart rate slow enough now that he must use hydralazine to lower the blood pressure to safer levels. Patient does not need dialysis emergently but will need dialysis access to prevent her from getting dangerously high levels including potassium which she has no other way to excrete. Spoke with Dr. Alexander who agrees to admit the patient to telemetry. EKG interpretation: Sinus origin of rhythm without ST or T-wave changes concerning for acute ischemia, panel monitor interpretation: Normal sinus rhythm without arrhythmia Critical care time 42 minutes: This includes time spent treating severe hypertension is refractory to multiple medications, use of increasing doses of labetalol as well as hydralazine, multiple this patient's bedside to reassess her status, chart reviewed, discussion with patient and admitting doctor, treatment of unstable vital signs. This does not include any billable procedures. Departure Diagnosis: Primary Impression: Complication of vascular access for dialysis Additional Impression: Hypertensive crisis Condition: Serious RAVINDER HARO DO Nov 13, 2016 18:19
[2016-11-13] MEDS ORDERED: hydrALAzine 20 MG INJ IV ONE (18:30)
[2016-11-13] MEDS ORDERED: ONDANSETRON 4 MG INJ IV PRN (19:00)
[2016-11-13] MEDS ORDERED: ACETAMINOPHEN 325 MG TAB PO PRN (19:00)
[2016-11-13 21:46] VITALS: PULSE 75
[2016-11-13 21:50] VITALS: BP 189/86; PULSE 74; RESP 18
[2016-11-13 23:08] VITALS: BP 195/88; PULSE 75
[2016-11-13] MEDS ORDERED: hydrALAzine 20 MG INJ IV PRN (23:30)
[2016-11-13] MEDS ORDERED: GLUCAGON 1 MG INJ IM PRN (23:45)
[2016-11-13] MEDS ORDERED: GLUCOSE GEL 15 GRAM TUBE BUCCAL PRN (23:45)
[2016-11-13] MEDS ORDERED: GLUCOSE GEL 15 GRAM TUBE PO PRN ×2 (23:45)
[2016-11-13] MEDS ORDERED: DEXTROSE 50% 50 ML SYRINGE IV PRN ×2 (23:45)
[2016-11-13 23:48] VITALS: BP 179/86; RESP 19
[2016-11-13] MEDS: NIFEdipine (XL) 60 MG TAB PO SCH (23:51)
[2016-11-13] MEDS: ACCU-CHEK XX SCH (23:54)
[2016-11-14] VITALS (20 sets, daily range): BP systolic 96–145; BP diastolic 41–76; PULSE 73–86; RESP 19–20; Ht 162.6 cm; Wt 87.9 kg
[2016-11-14] MEDS ORDERED: ACCU-CHEK XX SCH (02:00)
[2016-11-14] MEDS: BUMETANIDE 1 MG TAB PO SCH ×2 (05:42→17:34)
[2016-11-14] MEDS: LEVOTHYROXINE 125 MCG TAB PO SCH (05:43)
[2016-11-14] MEDS: ONDANSETRON 4 MG INJ IV PRN ×2 (05:44→15:10)
[2016-11-14] MEDS: GABAPENTIN 100 MG CAP PO SCH ×3 (08:13→20:38)
[2016-11-14] MEDS: PENTOXIFYLLINE (SR) 400 MG TAB PO SCH (08:14)
[2016-11-14] MEDS: NIFEdipine (XL) 30 MG TAB PO SCH (08:18)
[2016-11-14] MEDS: BENAZEPRIL 40 MG TAB PO SCH (08:18)
[2016-11-14] MEDS: ZINC SULFATE 220 MG CAP PO SCH ×3 (08:18→20:38)
[2016-11-14] MEDS: CALCIUM ACETATE 667 MG CAP PO SCH ×3 (08:19→17:34)
[2016-11-14] MEDS: INSULIN ASPART [NOVOLOG] 3 ML PEN SC SCH ×6 (08:23→20:37)
[2016-11-14] MEDS: FOLIC ACID 1 MG TAB PO SCH (08:24)
[2016-11-14 08:50] LABS: ADD SCAN DIFF NO
[2016-11-14 08:59] LABS: BASOPHIL # 0.1 10^3/ul (0.0-0.1); BASOPHILS % 0.5 % (0.0-2.0); EOSINOPHILS # 0.2 10^3/ul (0.0-0.5); EOSINOPHILS % 1.7 % (0.0-7.0); HEMATOCRIT 35.6 % (37.0-47.0); HEMOGLOBIN 11.2 g/dl (12.0-16.0); LYMPHOCYTES # 0.9 10^3/ul (0.8-2.9); LYMPHOCYTES % 9.4 % (15.0-51.0); MEAN CORPUSCULAR HEMOGLOBIN 30.4 pg (29.0-33.0); MEAN CORPUSCULAR HGB CONC 31.5 g/dl (32.0-37.0); MEAN CORPUSCULAR VOLUME 96.7 fl (82.0-101.0); MEAN PLATELET VOLUME 11.4 fl (7.4-10.4); MONOCYTE # 0.6 10^3/ul (0.3-0.9); MONOCYTES % 6.4 % (0.0-11.0); NEUTROPHIL # 7.5 10^3/ul (1.6-7.5); NEUTROPHILS % 81.4 % (39.0-77.0); PLATELET COUNT 230 10^3/UL (140-415); RED BLOOD COUNT 3.68 10^6/ul (4.20-5.40); RED CELL DISTRIBUTION WIDTH 17.3 % (11.5-14.5); WHITE BLOOD COUNT 9.3 10^3/ul (4.8-10.8)
[2016-11-14 09:28] LABS: CALCIUM 7.4 mg/dl (8.4-10.2); CREATININE 6.92 mg/dl (0.44-1.00)
[2016-11-14 09:46] LABS: POTASSIUM 6.3 mmol/L (3.5-5.1)
[2016-11-14] MEDS ORDERED: NA POLYST SULFON 15 GM/60 ML BTL PO ONE (10:19)
--- NOTE | 2016-11-14 11:10 | HP ---
Date/Time of Note Date/Time of Note DATE: 11/14/16 TIME: 10:56 Assessment/Plan VTE Prophylaxis VTE Prophylaxis Intervention: SCD's Lines/Catheters IV Catheter Type (from [facility]): Permacath Urinary Cath still in place: No Assessment/Plan Assessment/Plan -Hypertensive urgency, continue hydralazine as needed for systolic blood pressure above 170. -Left Milton catheter malfunction, spoke with Dr. Balbuena, plan for Milton catheter exchange today. Keep patient n.p.o. -End-stage renal disease, Dr. Ndiaye is following a nephrology consultation. -Hyperkalemia, given Kayexalate, plan for hemodialysis when access is obtained. -Diabetes mellitus, continue Lantus and NovoLog. -S/p left radiocephalic arteriovenous fistula by Dr Balbuena on 10/12/16. -Hypothyroidism, continue levothyroxine. Further recommendations based on clinical course. Plan of care discussed with Dr. Alexander. HPI/ROS Admit Date/Time Admit Date/Time Nov 13, 2016 at 19:02 Hx of Present Illness The patient is 61-year-old female who was sent to the emergency room from dialysis center due to the fact that she was not able to undergo dialysis via left Milton catheter. Patient underwent creation of left radiocephalic atrial venous fistula in October [address] Balbuena which is not matured yet. Patient was noted to be hypertensive in the emergency room with systolic blood pressure above 200, was given labetalol and hydralazine with improvement in blood pressure. Patient's complains of nausea, patient denies any chest pain denies shortness of breath denies any vomiting diarrhea. Patient is admitted to telemetry floor for further evaluation and management. ROS Constitutional: no complaints Eyes: no complaints ENT: no complaints Respiratory: no complaints Cardiovascular: no complaints Gastrointestinal: nausea Genitourinary: no complaints Musculoskeletal: no complaints Skin: no complaints Neurologic: no complaints Endocrine: no complaints Psychological: no complaints PMH/Family/Social Past Medical History Medical History: diabetes, hypertension, renal disease Past Surgical History Creation of left radiocephalic arteriovenous fistula by Dr Balbuena on 10/12/16. Family History Significant Family History: no pertinent family hx Social History Alcohol Use: none Smoking Status: Never smoker Drug Use: none Exam/Review of Systems Vital Signs Vitals Vital Signs Date Time Temp Pulse Resp B/P Pulse Ox O2 Delivery O2 Flow Rate FiO2 11/14/16 08:08 80 11/14/16 06:59 98.0 20 125/64 96 11/13/16 21:50 Room Air Intake and Output 11/13/16 11/13/16 11/14/16 15:00 23:00 07:00 Intake Total 350 ml Balance 350 ml Exam Constitutional: alert, oriented Head: normocephalic Eyes: nl conjunctiva Neck: supple Respiratory: normal air movement Cardiovascular: nl pulses, regular rate and rhythm Gastrointestinal: non-tender, soft Musculoskeletal: nl extremities to inspection Extremities: normal pulses Neurological: nl mental status Skin: nl turgor Lymph: nl lymph nodes Labs Result Diagram: 11/14/1629 11/14/16 0729 Medications Medications Current Medications Benazepril HCl (Lotensin) 40 mg DAILY PO Last administered on 11/14/16 08:18; Admin Dose 40 MG; Start 11/14/16 at 09:00 Folic Acid (Folic Acid) 1 mg DAILY PO Last administered on 11/14/16 08:24; Admin Dose 1 MG; Start 11/14/16 at 09:00 Gabapentin (Neurontin) 100 mg TID PO Last administered on 11/14/16 08:13; Admin Dose 100 MG; Start 11/14/16 at 09:00 Nifedipine (Procardia Xl) 30 mg QAM PO Last administered on 11/14/16 08:18; Admin Dose 30 MG; Start 11/14/16 at 09:00 Pentoxifylline (Trental) 400 mg DAILY PO Last administered on 11/14/16 08:14; Admin Dose 400 MG; Start 11/14/16 at 09:00 Zinc Sulfate (Zinc Sulfate) 220 mg TID PO Last administered on 11/14/16 08:18 ; Admin Dose 220 MG; Start 11/14/16 at 09:00 Nifedipine (Procardia Xl) 60 mg QPM PO Last administered on 11/13/16 23:51; Admin Dose 60 MG; Start 11/13/16 at 23:40 Hydralazine HCl (Apresoline) 20 mg Q6H PRN IV ELEVATED SYSTOLIC BP Last administered on 11/13/16 23:49; Admin Dose 20 MG; Start 11/13/16 at 23:30 Acetaminophen (Tylenol Tab) 650 mg Q4H PRN PO PAIN AND OR ELEVATED TEMP; Start 11/13/16 at 23:30 Diagnostic Test (Pha) (Accu-Chek) 1 ea 02 XX ; Start 11/14/16 at 02:00 Miscellaneous Information 1 ea NOTE XX ; Start 11/13/16 at 23:45 Glucose (Glutose) 15 gm Q15M PRN PO DECREASED GLUCOSE; Start 11/13/16 at 23:45 Glucose (Glutose) 22.5 gm Q15M PRN PO DECREASED GLUCOSE; Start 11/13/16 at 23: 45 Dextrose (D50w Syringe) 25 ml Q15M PRN IV DECREASED GLUCOSE; Start 11/13/16 at 23:45 Dextrose (D50w Syringe) 50 ml Q15M PRN IV DECREASED GLUCOSE; Start 11/13/16 at 23:45 Glucagon (Glucagen) 1 mg Q15M PRN IM DECREASED GLUCOSE; Start 11/13/16 at 23:45 Glucose (Glutose) 15 gm Q15M PRN BUCCAL DECREASED GLUCOSE; Start 11/13/16 at 23 :45 Ondansetron HCl (Zofran Inj) 4 mg Q6H PRN IV NAUSEA AND/OR VOMITING Last administered on 11/14/16t 05:44; Admin Dose 4 MG; Start 11/14/16 at 06:00 CARLA PEACOCK Nov 14, 2016 11:06
[2016-11-14] MEDS ORDERED: INSULIN ASPART [NOVOLOG] 3 ML PEN SC SCH (11:50)
[2016-11-14] MEDS ORDERED: FENTAnyl 50 MCG/ML VIAL ONE (12:58)
[2016-11-14] MEDS ORDERED: IOHEXOL 350MG/ML 50 ML BTL ONE (12:58)
[2016-11-14] MEDS ORDERED: SOD CHLORIDE 0.9% 500 ML ONE (12:59)
[2016-11-14] MEDS ORDERED: MIDAZOLAM 1 MG/ML 2 ML INJ ONE (12:59)
[2016-11-14] MEDS ORDERED: CEFAZOLIN 2 GM/50 ML (PMX) 50 ML IVPB ONE (13:13)
[2016-11-14] MEDS ORDERED: HEPARIN 1000 UNITS/ML 10 ML INJ ONE (13:25)
[2016-11-14] MEDS ORDERED: INSULIN GLARGINE [LANtus] 3 ML PEN SC SCH (20:00)
[2016-11-14] MEDS: NIFEdipine (XL) 60 MG TAB PO SCH (20:38)
[2016-11-15] VITALS (11 sets, daily range): BP systolic 113–149; BP diastolic 55–67; PULSE 72–81; RESP 16–20
[2016-11-15] MEDS: ACCU-CHEK XX SCH (01:33)
[2016-11-15] MEDS ORDERED: ACCU-CHEK XX SCH (02:00)
[2016-11-15] MEDS: BUMETANIDE 1 MG TAB PO SCH ×2 (06:06→17:14)
[2016-11-15] MEDS: LEVOTHYROXINE 125 MCG TAB PO SCH (06:07)
[2016-11-15 07:12] LABS: ADD SCAN DIFF NO
[2016-11-15 07:17] LABS: BASOPHILS % 0.4 % (0.0-2.0); EOSINOPHILS # 0.3 10^3/ul (0.0-0.5); EOSINOPHILS % 3.2 % (0.0-7.0); HEMATOCRIT 32.8 % (37.0-47.0); HEMOGLOBIN 10.5 g/dl (12.0-16.0); LYMPHOCYTES # 1.3 10^3/ul (0.8-2.9); LYMPHOCYTES % 16.3 % (15.0-51.0); MEAN CORPUSCULAR HEMOGLOBIN 31.2 pg (29.0-33.0); MEAN CORPUSCULAR VOLUME 97.3 fl (82.0-101.0); MEAN PLATELET VOLUME 10.9 fl (7.4-10.4); MONOCYTE # 0.8 10^3/ul (0.3-0.9); NEUTROPHIL # 5.4 10^3/ul (1.6-7.5); NEUTROPHILS % 69.5 % (39.0-77.0); PLATELET COUNT 131 10^3/UL (140-415); RED BLOOD COUNT 3.37 10^6/ul (4.20-5.40); RED CELL DISTRIBUTION WIDTH 17.1 % (11.5-14.5); WHITE BLOOD COUNT 7.7 10^3/ul (4.8-10.8)
[2016-11-15 07:37] LABS: CALCIUM 7.6 mg/dl (8.4-10.2); CREATININE 5.5 mg/dl (0.44-1.00); POTASSIUM 4.8 mmol/L (3.5-5.1)
[2016-11-15] MEDS: INSULIN ASPART [NOVOLOG] 3 ML PEN SC SCH ×7 (07:55→21:00)
[2016-11-15] MEDS: CALCIUM ACETATE 667 MG CAP PO SCH ×3 (08:05→17:14)
[2016-11-15] MEDS: NIFEdipine (XL) 30 MG TAB PO SCH (08:06)
[2016-11-15] MEDS: FOLIC ACID 1 MG TAB PO SCH (08:06)
[2016-11-15] MEDS: BENAZEPRIL 40 MG TAB PO SCH (08:06)
[2016-11-15] MEDS: GABAPENTIN 100 MG CAP PO SCH ×3 (08:06→21:23)
[2016-11-15] MEDS: ZINC SULFATE 220 MG CAP PO SCH ×3 (08:06→21:23)
[2016-11-15] MEDS: PENTOXIFYLLINE (SR) 400 MG TAB PO SCH (08:06)
--- NOTE | 2016-11-15 09:01 | PN ---
Date/Time of Note Date/Time of Note DATE: 11/15/16 TIME: 08:58 Assessment/Plan Lines/Catheters [facility] Peripheral IV Urinary Cath still in place: No Assessment/Plan Chief Complaint/Hosp Course 1. End-stage renal disease. The patient is on dialysis Saturday, Saturday, Saturday. She had hemodialysis yesterday. Plan for dialysis tomorrow. 2. Access. The patient has a Perm-A-Cath placed 3. Hyperkalemia improved 5. Hypertension. Continue current blood pressure regime 6. Anemia of chronic disease. Continue to monitor hemoglobin and hematocrit levels. Continue Epogen. 7. Mineral bone disorder. Continue to monitor calcium and phosphate levels. Continue phosphorus binders. 8. Diabetes. Continue Accu-Cheks and insulin sliding scale. 9. Atrial fibrillation, rate controlled. Continue current medical management. 10. Hyponatremia -Dialysis on 140 sodium bath, limit free water Problems: Subjective 24 Hr Interval Summary Free Text/Dictation -Patient was urgently dialyzed yesterday after permacath was placed Patient stable. No other events noted Exam/Review of Systems Vital Signs Vitals Vital Signs Date Time Temp Pulse Resp B/P Pulse Ox O2 Delivery O2 Flow Rate FiO2 11/15/16 07:06 98.4 76 18 119/60 94 11/13/16 21:50 Room Air Intake and Output 11/14/16 11/14/16 11/15/16 15:00 23:00 07:00 Intake Total 1700 ml 250 ml Output Total 2600 ml Balance -900 ml 250 ml Exam Constitutional: alert, oriented Head: normocephalic Eyes: nl conjunctiva Neck: supple Respiratory: normal air movement Cardiovascular: nl pulses, regular rate and rhythm Gastrointestinal: non-tender, soft Musculoskeletal: nl extremities to inspection Extremities: normal pulses Neurological: nl mental status Skin: nl turgor Lymph: nl lymph nodes Results Result Diagram: 11/15/16 0659 11/15/16 0659 Results 24 hrs Laboratory Tests Test 11/14/16 12:03 11/14/16 17:30 11/14/16 20:37 11/15/16 06:59 Bedside Glucose 169 129 177 White Blood Count 7.7 Red Blood Count 3.37 L Hemoglobin 10.5 L Hematocrit 32.8 L Mean Corpuscular Volume 97.3 Mean Corpuscular Hemoglobin 31.2 Mean Corpuscular Hemoglobin Concent 32.0 Red Cell Distribution Width 17.1 H Platelet Count 131 #L Mean Platelet Volume 10.9 H Neutrophils % 69.5 Lymphocytes % 16.3 Monocytes % 10.0 Eosinophils % 3.2 Basophils % 0.4 Nucleated Red Blood Cells % 0.0 Neutrophils # 5.4 Lymphocytes # 1.3 Monocytes # 0.8 Eosinophils # 0.3 Basophils # 0.0 Nucleated Red Blood Cells # 0.0 Sodium Level 131 L Potassium Level 4.8 Chloride Level 93 L Carbon Dioxide Level 31 Anion Gap 12 # Blood Urea Nitrogen 35 #H Creatinine 5.50 H Glucose Level 95 # Calcium Level 7.6 L Test 11/15/16 08:05 Bedside Glucose 86 Medications Medications Current Medications Benazepril HCl (Lotensin) 40 mg DAILY PO Last administered on 11/15/16 08:06; Admin Dose 40 MG; Start 11/14/16 at 09:00 Folic Acid (Folic Acid) 1 mg DAILY PO Last administered on 11/15/16 08:06; Admin Dose 1 MG; Start 11/14/16 at 09:00 Gabapentin (Neurontin) 100 mg TID PO Last administered on 11/15/16 08:06; Admin Dose 100 MG; Start 11/14/16 at 09:00 Nifedipine (Procardia Xl) 30 mg QAM PO Last administered on 11/15/16 08:06; Admin Dose 30 MG; Start 11/14/16 at 09:00 Pentoxifylline (Trental) 400 mg DAILY PO Last administered on 11/15/16 08:06; Admin Dose 400 MG; Start 11/14/16 at 09:00 Zinc Sulfate (Zinc Sulfate) 220 mg TID PO Last administered on 11/15/16 08:06 ; Admin Dose 220 MG; Start 11/14/16 at 09:00 Nifedipine (Procardia Xl) 60 mg QPM PO Last administered on 11/14/16 20:38; Admin Dose 60 MG; Start 11/13/16 at 23:40 Hydralazine HCl (Apresoline) 20 mg Q6H PRN IV ELEVATED SYSTOLIC BP Last administered on 11/13/16 23:49; Admin Dose 20 MG; Start 11/13/16 at 23:30 Acetaminophen (Tylenol Tab) 650 mg Q4H PRN PO PAIN AND OR ELEVATED TEMP; Start 11/13/16 at 23:30 Diagnostic Test (Pha) (Accu-Chek) 1 ea 02 XX ; Start 11/14/16 at 02:00 Miscellaneous Information 1 ea NOTE XX ; Start 11/13/16 at 23:45 Glucose (Glutose) 15 gm Q15M PRN PO DECREASED GLUCOSE; Start 11/13/16 at 23:45 Glucose (Glutose) 22.5 gm Q15M PRN PO DECREASED GLUCOSE; Start 11/13/16 at 23: 45 Dextrose (D50w Syringe) 25 ml Q15M PRN IV DECREASED GLUCOSE; Start 11/13/16 at 23:45 Dextrose (D50w Syringe) 50 ml Q15M PRN IV DECREASED GLUCOSE; Start 11/13/16 at 23:45 Glucagon (Glucagen) 1 mg Q15M PRN IM DECREASED GLUCOSE; Start 11/13/16 at 23:45 Glucose (Glutose) 15 gm Q15M PRN BUCCAL DECREASED GLUCOSE; Start 11/13/16 at 23 :45 Ondansetron HCl (Zofran Inj) 4 mg Q6H PRN IV NAUSEA AND/OR VOMITING Last administered on 11/14/16 15:10; Admin Dose 4 MG; Start 11/14/16 at 06:00 Insulin Glargine (Lantus) 10 unit DAILY@20 SC Last administered on 11/14/16 20 :42; Admin Dose 10 UNIT; Start 11/14/16 at 20:00 LY LOPEZ DO Nov 15, 2016 09:01
--- NOTE | 2016-11-15 15:29 | PN ---
Date/Time of Note Date/Time of Note DATE: 11/15/16 TIME: 15:27 Assessment/Plan Lines/Catheters IV Catheter Type (from [facility]): Peripheral IV Urinary Cath still in place: No Assessment/Plan Assessment/Plan -Hypertensive urgency, continue hydralazine as needed for systolic blood pressure above 170. -Left Milton catheter malfunction, spoke with Dr. Balbuena, plan for Milton catheter exchange today. Keep patient n.p.o. -End-stage renal disease, Dr. Ndiaye is following a nephrology consultation. -Hyperkalemia, given Kayexalate, plan for hemodialysis when access is obtained. -Diabetes mellitus, continue Lantus and NovoLog. -S/p left radiocephalic arteriovenous fistula by Dr Balbuena on 10/12/16. -Hypothyroidism, continue levothyroxine. Further recommendations based on clinical course. Plan of care discussed with Dr. Alexander. Subjective 24 Hr Interval Summary Respiratory: no complaints Cardiovascular: no complaints Gastrointestinal: no complaints Genitourinary: no complaints Musculoskeletal: no complaints Neurologic: no complaints Exam/Review of Systems Vital Signs Vitals Vital Signs Date Time Temp Pulse Resp B/P Pulse Ox O2 Delivery O2 Flow Rate FiO2 11/15/16 12:33 81 11/15/16 11:28 98.5 20 113/55 96 11/13/16 21:50 Room Air Intake and Output 11/14/16 11/14/16 11/15/16 15:00 23:00 07:00 Intake Total 1700 ml 250 ml Output Total 2600 ml Balance -900 ml 250 ml Exam Constitutional: alert Respiratory: clear to auscultation, normal air movement Cardiovascular: nl pulses, regular rate and rhythm Gastrointestinal: non-tender, soft Neurological: nl mental status, nl speech Results Result Diagram: 11/15/16 0659 11/15/16 0659 Results 24 hrs Laboratory Tests Test 11/14/16 17:30 11/14/16 20:37 11/15/16 06:59 11/15/16 08:05 Bedside Glucose 129 177 86 White Blood Count 7.7 Red Blood Count 3.37 L Hemoglobin 10.5 L Hematocrit 32.8 L Mean Corpuscular Volume 97.3 Mean Corpuscular Hemoglobin 31.2 Mean Corpuscular Hemoglobin Concent 32.0 Red Cell Distribution Width 17.1 H Platelet Count 131 #L Mean Platelet Volume 10.9 H Neutrophils % 69.5 Lymphocytes % 16.3 Monocytes % 10.0 Eosinophils % 3.2 Basophils % 0.4 Nucleated Red Blood Cells % 0.0 Neutrophils # 5.4 Lymphocytes # 1.3 Monocytes # 0.8 Eosinophils # 0.3 Basophils # 0.0 Nucleated Red Blood Cells # 0.0 Sodium Level 131 L Potassium Level 4.8 Chloride Level 93 L Carbon Dioxide Level 31 Anion Gap 12 # Blood Urea Nitrogen 35 #H Creatinine 5.50 H Glucose Level 95 # Calcium Level 7.6 L Test 11/15/16 12:01 Bedside Glucose 222 H Medications Medications Current Medications Benazepril HCl (Lotensin) 40 mg DAILY PO Last administered on 11/15/16 08:06; Admin Dose 40 MG; Start 11/14/16 at 09:00 Folic Acid (Folic Acid) 1 mg DAILY PO Last administered on 11/15/16 08:06; Admin Dose 1 MG; Start 11/14/16 at 09:00 Gabapentin (Neurontin) 100 mg TID PO Last administered on 11/15/16 12:19; Admin Dose 100 MG; Start 11/14/16 at 09:00 Nifedipine (Procardia Xl) 30 mg QAM PO Last administered on 11/15/16 08:06; Admin Dose 30 MG; Start 11/14/16 at 09:00 Pentoxifylline (Trental) 400 mg DAILY PO Last administered on 11/15/16 08:06; Admin Dose 400 MG; Start 11/14/16 at 09:00 Zinc Sulfate (Zinc Sulfate) 220 mg TID PO Last administered on 11/15/16 13:03 ; Admin Dose 220 MG; Start 11/14/16 at 09:00 Nifedipine (Procardia Xl) 60 mg QPM PO Last administered on 11/14/16 20:38; Admin Dose 60 MG; Start 11/13/16 at 23:40 Hydralazine HCl (Apresoline) 20 mg Q6H PRN IV ELEVATED SYSTOLIC BP Last administered on 11/13/16 23:49; Admin Dose 20 MG; Start 11/13/16 at 23:30 Acetaminophen (Tylenol Tab) 650 mg Q4H PRN PO PAIN AND OR ELEVATED TEMP; Start 11/13/16 at 23:30 Diagnostic Test (Pha) (Accu-Chek) XX ; Start 11/14/16 at 02:00 Miscellaneous Information 1 ea NOTE XX ; Start 11/13/16 at 23:45 Glucose (Glutose) 15 gm Q15M PRN PO DECREASED GLUCOSE; Start 11/13/16 at 23:45 Glucose (Glutose) 22.5 gm Q15M PRN PO DECREASED GLUCOSE; Start 11/13/16 at 23: 45 Dextrose (D50w Syringe) 25 ml Q15M PRN IV DECREASED GLUCOSE; Start 11/13/16 at 23:45 Dextrose (D50w Syringe) 50 ml Q15M PRN IV DECREASED GLUCOSE; Start 11/13/16 at 23:45 Glucagon (Glucagen) 1 mg Q15M PRN IM DECREASED GLUCOSE; Start 11/13/16 at 23:45 Glucose (Glutose) 15 gm Q15M PRN BUCCAL DECREASED GLUCOSE; Start 11/13/16 at 23 :45 Ondansetron HCl (Zofran Inj) 4 mg Q6H PRN IV NAUSEA AND/OR VOMITING Last administered on 11/14/16 15:10; Admin Dose 4 MG; Start 11/14/16 at 06:00 Insulin Glargine (Lantus) 10 unit DAILY@20 SC Last administered on 11/14/16 20 :42; Admin Dose 10 UNIT; Start 11/14/16 at 20:00 MERI CURZ Nov 15, 2016 15:29
[2016-11-15] MEDS ORDERED: INSULIN GLARGINE [LANtus] 3 ML PEN SC SCH (20:00)
[2016-11-15] MEDS: NIFEdipine (XL) 60 MG TAB PO SCH (21:23)
[2016-11-16] VITALS (25 sets, daily range): BP systolic 89–146; BP diastolic 45–68; PULSE 71–172; RESP 18–20
[2016-11-16] MEDS: ACCU-CHEK XX SCH (02:00)
[2016-11-16] MEDS: BUMETANIDE 1 MG TAB PO SCH ×2 (06:37→17:23)
[2016-11-16] MEDS: LEVOTHYROXINE 125 MCG TAB PO SCH (06:38)
[2016-11-16 07:57] LABS: ADD SCAN DIFF NO
[2016-11-16 07:58] LABS: ABNORMAL IP MESSAGE 1; HEMATOCRIT 33.9 % (37.0-47.0); HEMOGLOBIN 10.8 g/dl (12.0-16.0); MEAN CORPUSCULAR HEMOGLOBIN 31.4 pg (29.0-33.0); MEAN CORPUSCULAR HGB CONC 31.9 g/dl (32.0-37.0); MEAN CORPUSCULAR VOLUME 98.5 fl (82.0-101.0); MEAN PLATELET VOLUME 11.3 fl (7.4-10.4); PLATELET COUNT 60 10^3/UL (140-415); RED BLOOD COUNT 3.44 10^6/ul (4.20-5.40); RED CELL DISTRIBUTION WIDTH 16.7 % (11.5-14.5); WHITE BLOOD COUNT 7.3 10^3/ul (4.8-10.8)
[2016-11-16] MEDS: FOLIC ACID 1 MG TAB PO SCH (08:10)
[2016-11-16] MEDS: ZINC SULFATE 220 MG CAP PO SCH ×3 (08:10→20:34)
[2016-11-16] MEDS: CALCIUM ACETATE 667 MG CAP PO SCH ×3 (08:10→16:46)
[2016-11-16] MEDS: NIFEdipine (XL) 30 MG TAB PO SCH (08:10)
[2016-11-16] MEDS: PENTOXIFYLLINE (SR) 400 MG TAB PO SCH (08:10)
[2016-11-16] MEDS: GABAPENTIN 100 MG CAP PO SCH ×3 (08:11→20:34)
[2016-11-16] MEDS: BENAZEPRIL 40 MG TAB PO SCH (08:15)
[2016-11-16] MEDS: INSULIN ASPART [NOVOLOG] 3 ML PEN SC SCH ×7 (08:22→20:42)
[2016-11-16] MEDS ORDERED: DILTIAZEM-D5W 125MG/125ML DRIP 125 ML IV SCH (08:30)
[2016-11-16 08:45] LABS: CALCIUM 7.6 mg/dl (8.4-10.2); CREATININE 5.18 mg/dl (0.44-1.00); MAGNESIUM 1.9 mg/dl (1.7-2.5); PHOSPHORUS 6.5 mg/dl (2.5-4.9); POTASSIUM 3.7 mmol/L (3.5-5.1)
--- NOTE | 2016-11-16 10:05 | CONS ---
Date/Time of Note Date/Time of Note DATE: 11/16/16 TIME: 10:04 Consult Date/Type/Reason Admit Date/Time Nov 13, 2016 at 19:02 Initial Consult Date Type of Consultation: nephrology Subjective pt. seen and examined on hd Objective Vital Signs Date Time Temp Pulse Resp B/P Pulse Ox O2 Delivery O2 Flow Rate FiO2 11/16/16 09:06 145 18 110/59 11/16/16 07:30 98.7 95 11/13/16 21:50 Room Air Intake and Output 11/15/16 11/15/16 11/16/16 15:00 23:00 07:00 Intake Total 450 ml 250 ml Balance 450 ml 250 ml Results/Medications Result Diagram: 11/16/16 0737 11/16/16 0701 Results 24 hrs Laboratory Tests Test 11/15/16 12:01 11/15/16 17:15 11/15/16 21:20 11/16/16 07:01 Bedside Glucose 222 H 101 161 Sodium Level 133 L Potassium Level 3.7 Chloride Level 95 L Carbon Dioxide Level 29 Anion Gap 13 Blood Urea Nitrogen 37 H Creatinine 5.18 H Glucose Level 174 Calcium Level 7.6 L Phosphorus Level 6.5 H Magnesium Level 1.9 Test 11/16/16 07:32 11/16/16 07:37 11/16/16 07:54 Hemoglobin A1c 7.6 H White Blood Count 7.3 Red Blood Count 3.44 L Hemoglobin 10.8 L Hematocrit 33.9 L Mean Corpuscular Volume 98.5 Mean Corpuscular Hemoglobin 31.4 Mean Corpuscular Hemoglobin Concent 31.9 L Red Cell Distribution Width 16.7 H Platelet Count 60 #L Mean Platelet Volume 11.3 H Bedside Glucose 170 Medications Current Medications Benazepril HCl (Lotensin) 40 mg DAILY PO Last administered on 11/16/16 08:15; Admin Dose 40 MG; Start 11/14/16 at 09:00 Folic Acid (Folic Acid) 1 mg DAILY PO Last administered on 11/16/16 08:10; Admin Dose 1 MG; Start 11/14/16 at 09:00 Gabapentin (Neurontin) 100 mg TID PO Last administered on 11/16/16 08:11; Admin Dose 100 MG; Start 11/14/16 at 09:00 Nifedipine (Procardia Xl) 30 mg QAM PO Last administered on 11/16/16 08:10; Admin Dose 30 MG; Start 11/14/16 at 09:00 Pentoxifylline (Trental) 400 mg DAILY PO Last administered on 11/16/16 08:10; Admin Dose 400 MG; Start 11/14/16 at 09:00 Zinc Sulfate (Zinc Sulfate) 220 mg TID PO Last administered on 11/16/16 08:10 ; Admin Dose 220 MG; Start 11/14/16 at 09:00 Nifedipine (Procardia Xl) 60 mg QPM PO Last administered on 11/15/16 21:23; Admin Dose 60 MG; Start 11/13/16 at 23:40 Hydralazine HCl (Apresoline) 20 mg Q6H PRN IV ELEVATED SYSTOLIC BP Last administered on 11/13/16 23:49; Admin Dose 20 MG; Start 11/13/16 at 23:30 Acetaminophen (Tylenol Tab) 650 mg Q4H PRN PO PAIN AND OR ELEVATED TEMP; Start 11/13/16 at 23:30 Diagnostic Test (Pha) (Accu-Chek) 1 ea 02 XX ; Start 11/14/16 at 02:00 Miscellaneous Information 1 ea NOTE XX ; Start 11/13/16 at 23:45 Glucose (Glutose) 15 gm Q15M PRN PO DECREASED GLUCOSE; Start 11/13/16 at 23:45 Glucose (Glutose) 22.5 gm Q15M PRN PO DECREASED GLUCOSE; Start 11/13/16 at 23: 45 Dextrose (D50w Syringe) 25 ml Q15M PRN IV DECREASED GLUCOSE; Start 11/13/16 at 23:45 Dextrose (D50w Syringe) 50 ml Q15M PRN IV DECREASED GLUCOSE; Start 11/13/16 at 23:45 Glucagon (Glucagen) 1 mg Q15M PRN IM DECREASED GLUCOSE; Start 11/13/16 at 23:45 Glucose (Glutose) 15 gm Q15M PRN BUCCAL DECREASED GLUCOSE; Start 11/13/16 at 23 :45 Ondansetron HCl (Zofran Inj) 4 mg Q6H PRN IV NAUSEA AND/OR VOMITING Last administered on 11/14/16 15:10; Admin Dose 4 MG; Start 11/14/16 at 06:00 Insulin Glargine 12 unit 12 unit DAILY@20 SC ; Start 11/15/16 at 20:00 Diltiazem HCl (Cardizem-D5W 125 Mg/125 ml Drip) 125 ml @ 5 mls/hr TITRATE IV Last administered on 11/16/16t 09:03; Admin Dose 5 MLS/HR; Start 11/16/16 at 08: 30 Assessment/Plan Chief Complaint/Hosp Course 1. End-stage renal disease. The patient is on dialysis Saturday, Saturday, Saturday. She had hemodialysis yesterday. Plan for dialysis tomorrow. 2. Access. The patient has a Perm-A-Cath placed 3. Hyperkalemia improved 5. Hypertension. Continue current blood pressure regime 6. Anemia of chronic disease. Continue to monitor hemoglobin and hematocrit levels. Continue Epogen. 7. Mineral bone disorder. Continue to monitor calcium and phosphate levels. Continue phosphorus binders. 8. Diabetes. Continue Accu-Cheks and insulin sliding scale. 9. Atrial fibrillation, rate controlled. Continue current medical management. 10. Hyponatremia -Dialysis on 140 sodium bath, limit free water Problems: BIJAL HINES MD Nov 16, 2016 10:04
[2016-11-16 13:23] LABS: EOSINOPHILS # 0.2 10^3/ul (0.0-0.5); LYMPHOCYTES # 0.5 10^3/ul (0.8-2.9); MONOCYTE # 0.1 10^3/ul (0.3-0.9); PLATELET ESTIMATE PLT APPEAR DECREASED
--- NOTE | 2016-11-16 14:02 | RADRPT ---
Vent Rate: 136 bpm RR Interval: 0 msec KS Interval: 0 msec QRS Duration: 78 msec QT Interval: 322 msec QTC Interval: 484 msec P-R-T Glidden: 0 - -2 - 0 degrees Atrial fibrillation with rapid ventricular response Septal infarct , age undetermined Marked ST abnormality, possible inferolateral subendocardial injury Abnormal ECG Electronically Signed By: Filipe Silveira [id number]
--- NOTE | 2016-11-16 15:52 | PN ---
Date/Time of Note Date/Time of Note DATE: 11/16/16 TIME: 15:45 Assessment/Plan VTE Prophylaxis VTE Prophylaxis Intervention: SCD's Lines/Catheters IV Catheter Type (from [facility]): Peripheral IV Urinary Cath still in place: No Assessment/Plan Chief Complaint/Hosp Course Patient developed atrial fibrillation with rapid ventricular response during dialysis today in the morning, started on Cardizem drip and converted to sinus rhythm. Patient remains hemodynamically stable. Blood glucose ranges between 160 and 200s, will adjust Lantus and NovoLog Assessment/Plan -Atrial fibrillation with rapid ventricular response, converted to sinus rhythm on Cardizem drip, will start aspirin and amiodarone. Dr. Silveira is asked to see patient in cardiology consultation. -Hypertensive urgency, continue benazepril and Procardia. -Left Milton catheter malfunction, status post catheter exchange by Dr. Balbuena. -End-stage renal disease, Dr. Ndiaye is following in nephrology consultation. -Diabetes mellitus, hemoglobin A1c 7.6, continue Lantus and NovoLog. -S/p left radiocephalic arteriovenous fistula by Dr Balbuena on 10/12/16. -Hypothyroidism, continue levothyroxine. Further recommendations based on clinical course. Plan of care discussed with Dr. Alexander. Problems: Subjective 24 Hr Interval Summary Free Text/Dictation Constitutional: alert, oriented Respiratory: normal air movement Cardiovascular: nl pulses, regular rate and rhythm Gastrointestinal: non-tender, soft Musculoskeletal: nl extremities to inspection Extremities: normal pulses Neurological: nl mental status Exam/Review of Systems Vital Signs Vitals Vital Signs Date Time Temp Pulse Resp B/P Pulse Ox O2 Delivery O2 Flow Rate FiO2 11/16/16 15:08 98.3 72 18 130/66 95 11/13/16 21:50 Room Air Intake and Output 11/15/16 11/15/16 11/16/16 15:00 23:00 07:00 Intake Total 450 ml 250 ml Balance 450 ml 250 ml Results Result Diagram: 11/16/16 0737 11/16/16 0701 Results 24 hrs Laboratory Tests Test 11/15/16 17:15 11/15/16 21:20 11/16/16 07:01 11/16/16 07:32 Bedside Glucose 101 161 Sodium Level 133 L Potassium Level 3.7 Chloride Level 95 L Carbon Dioxide Level 29 Anion Gap 13 Blood Urea Nitrogen 37 H Creatinine 5.18 H Glucose Level 174 Calcium Level 7.6 L Phosphorus Level 6.5 H Magnesium Level 1.9 Hemoglobin A1c 7.6 H Test 11/16/16 07:37 11/16/16 07:54 11/16/16 12:02 White Blood Count 7.3 Red Blood Count 3.44 L Hemoglobin 10.8 L Hematocrit 33.9 L Mean Corpuscular Volume 98.5 Mean Corpuscular Hemoglobin 31.4 Mean Corpuscular Hemoglobin Concent 31.9 L Red Cell Distribution Width 16.7 H Platelet Count 60 #L Mean Platelet Volume 11.3 H Neutrophils % 82.0 H Band Neutrophils % 7.0 H Lymphocytes % 7.0 L Monocytes % 1.0 Eosinophils % 3.0 Neutrophils # 6.0 Lymphocytes # 0.5 L Monocytes # 0.1 L Eosinophils # 0.2 Platelet Estimate PLT APPEAR DECREASED Bedside Glucose 170 277 H Medications Medications Current Medications Benazepril HCl (Lotensin) 40 mg DAILY PO Last administered on 11/16/16 08:15; Admin Dose 40 MG; Start 11/14/16 at 09:00 Folic Acid (Folic Acid) 1 mg DAILY PO Last administered on 11/16/16 08:10; Admin Dose 1 MG; Start 11/14/16 at 09:00 Gabapentin (Neurontin) 100 mg TID PO Last administered on 11/16/16 12:14; Admin Dose 100 MG; Start 11/14/16 at 09:00 Nifedipine (Procardia Xl) 30 mg QAM PO Last administered on 11/16/16 08:10; Admin Dose 30 MG; Start 11/14/16 at 09:00 Pentoxifylline (Trental) 400 mg DAILY PO Last administered on 11/16/16 08:10; Admin Dose 400 MG; Start 11/14/16 at 09:00 Zinc Sulfate (Zinc Sulfate) 220 mg TID PO Last administered on 11/16/16 12:14 ; Admin Dose 220 MG; Start 11/14/16 at 09:00 Nifedipine (Procardia Xl) 60 mg QPM PO Last administered on 11/15/16 21:23; Admin Dose 60 MG; Start 11/13/16 at 23:40 Hydralazine HCl (Apresoline) 20 mg Q6H PRN IV ELEVATED SYSTOLIC BP Last administered on 11/13/16 23:49; Admin Dose 20 MG; Start 11/13/16 at 23:30 Acetaminophen (Tylenol Tab) 650 mg Q4H PRN PO PAIN AND OR ELEVATED TEMP; Start 11/13/16 at 23:30 Diagnostic Test (Pha) (Accu-Chek) 1 ea 02 XX ; Start 11/14/16 at 02:00 Miscellaneous Information 1 ea NOTE XX ; Start 11/13/16 at 23:45 Glucose (Glutose) 15 gm Q15M PRN PO DECREASED GLUCOSE; Start 11/13/16 at 23:45 Glucose (Glutose) 22.5 gm Q15M PRN PO DECREASED GLUCOSE; Start 11/13/16 at 23: 45 Dextrose (D50w Syringe) 25 ml Q15M PRN IV DECREASED GLUCOSE; Start 11/13/16 at 23:45 Dextrose (D50w Syringe) 50 ml Q15M PRN IV DECREASED GLUCOSE; Start 11/13/16 at 23:45 Glucagon (Glucagen) 1 mg Q15M PRN IM DECREASED GLUCOSE; Start 11/13/16 at 23:45 Glucose (Glutose) 15 gm Q15M PRN BUCCAL DECREASED GLUCOSE; Start 11/13/16 at 23 :45 Ondansetron HCl (Zofran Inj) 4 mg Q6H PRN IV NAUSEA AND/OR VOMITING Last administered on 11/14/16 15:10; Admin Dose 4 MG; Start 11/14/16 at 06:00 Insulin Glargine 12 unit 12 unit DAILY@20 SC ; Start 11/15/16 at 20:00 Diltiazem HCl (Cardizem-D5W 125 Mg/125 ml Drip) 125 ml @ 5 mls/hr TITRATE IV Last administered on 11/16/16 09:03; Admin Dose 5 MLS/HR; Start 11/16/16 at 08: 30 CARLA PEACOCK Nov 16, 2016 15:52
[2016-11-16] MEDS ORDERED: AMIODARONE 200 MG TAB PO SCH (16:00)
[2016-11-16] MEDS: ASPIRIN (EC) 81 MG TAB PO SCH (16:41)
[2016-11-16] MEDS: NIFEdipine (XL) 60 MG TAB PO SCH (20:34)
[2016-11-16] MEDS: AMIODARONE 200 MG TAB PO SCH (20:34)
[2016-11-16] MEDS: INSULIN GLARGINE [LANtus] 3 ML PEN SC SCH (20:37)
[2016-11-17] VITALS (12 sets, daily range): BP systolic 100–146; BP diastolic 53–80; PULSE 69–80; RESP 16–20
[2016-11-17] MEDS: ACCU-CHEK XX SCH ×2 (01:44→21:07)
[2016-11-17] MEDS: BUMETANIDE 1 MG TAB PO SCH ×2 (05:32→18:23)
[2016-11-17] MEDS: LEVOTHYROXINE 125 MCG TAB PO SCH (05:33)
[2016-11-17 06:43] LABS: ADD SCAN DIFF NO
[2016-11-17 06:49] LABS: ABNORMAL IP MESSAGE 1; BASOPHILS % 0.4 % (0.0-2.0); EOSINOPHILS # 0.3 10^3/ul (0.0-0.5); HEMATOCRIT 31.1 % (37.0-47.0); HEMOGLOBIN 9.5 g/dl (12.0-16.0); MEAN CORPUSCULAR HEMOGLOBIN 30.3 pg (29.0-33.0); MEAN CORPUSCULAR HGB CONC 30.5 g/dl (32.0-37.0); MONOCYTE # 0.9 10^3/ul (0.3-0.9); MONOCYTES % 11.1 % (0.0-11.0); NEUTROPHIL # 5.8 10^3/ul (1.6-7.5); PLATELET COUNT 92 10^3/UL (140-415); RED BLOOD COUNT 3.14 10^6/ul (4.20-5.40)
[2016-11-17 07:18] LABS: CALCIUM 7.5 mg/dl (8.4-10.2); CREATININE 5.7 mg/dl (0.44-1.00); POTASSIUM 4.5 mmol/L (3.5-5.1)
[2016-11-17] MEDS: CALCIUM ACETATE 667 MG CAP PO SCH ×3 (09:10→18:23)
[2016-11-17] MEDS: BENAZEPRIL 40 MG TAB PO SCH (09:10)
[2016-11-17] MEDS: AMIODARONE 200 MG TAB PO SCH ×2 (09:11→20:58)
[2016-11-17] MEDS: ZINC SULFATE 220 MG CAP PO SCH ×3 (09:12→20:58)
[2016-11-17] MEDS: ASPIRIN (EC) 81 MG TAB PO SCH (09:12)
[2016-11-17] MEDS: GABAPENTIN 100 MG CAP PO SCH ×3 (09:12→20:58)
[2016-11-17] MEDS: NIFEdipine (XL) 30 MG TAB PO SCH (09:12)
[2016-11-17] MEDS: FOLIC ACID 1 MG TAB PO SCH (09:12)
[2016-11-17] MEDS: PENTOXIFYLLINE (SR) 400 MG TAB PO SCH (09:12)
[2016-11-17] MEDS: INSULIN ASPART [NOVOLOG] 3 ML PEN SC SCH ×7 (09:13→21:00)
--- NOTE | 2016-11-17 09:40 | CONS ---
Date/Time of Note Date/Time of Note DATE: 11/17/16 TIME: 09:35 Consult Date/Type/Reason Admit Date/Time Nov 13, 2016 at 19:02 Initial Consult Date Type of Consultation: nephrology Subjective This 61-year-old female came immediately from dialysis because her left-sided Milton catheter is not functioning. She has had problems with it before. She was not able to receive any dialysis. She has a left arm fistula that was recently placed but has not been cleared to use yet. she had hd yesterday. poc reviewed with dr. maxwell. Patient developed atrial fibrillation with rapid ventricular response during dialysis, started on Cardizem drip and converted to sinus rhythm. Patient remains hemodynamically stable. Constitutional: alert, oriented Head: normocephalic Eyes: nl conjunctiva Neck: supple Respiratory: normal air movement Cardiovascular: nl pulses, regular rate and rhythm Gastrointestinal: non-tender, soft Musculoskeletal: nl extremities to inspection Extremities: normal pulses Neurological: nl mental status Skin: nl turgor Lymph: nl lymph nodes Objective Vital Signs Date Time Temp Pulse Resp B/P Pulse Ox O2 Delivery O2 Flow Rate FiO2 11/17/16 08:20 69 11/17/16 08:03 98.8 16 100/53 92 11/13/16 21:50 Room Air Intake and Output 11/16/16 11/16/16 11/17/16 15:00 23:00 07:00 Intake Total 700 ml 800 ml 480 ml Output Total 1700 ml Balance -1000 ml 800 ml 480 ml Results/Medications Result Diagram: 11/17/16 0543 11/17/16 0546 Results 24 hrs Laboratory Tests Test 11/16/16 12:02 11/16/16 16:38 11/16/16 16:53 11/16/16 20:28 Bedside Glucose 277 H 253 H 216 Magnesium Level 1.9 Test 11/17/16 01:28 11/17/16 05:43 11/17/16 05:46 11/17/16 08:40 Bedside Glucose 170 118 White Blood Count 8.0 Red Blood Count 3.14 L Hemoglobin 9.5 L Hematocrit 31.1 L Mean Corpuscular Volume 99.0 Mean Corpuscular Hemoglobin 30.3 Mean Corpuscular Hemoglobin Concent 30.5 L Red Cell Distribution Width 17.0 H Platelet Count 92 #L Mean Platelet Volume 12.0 H Neutrophils % 72.0 Lymphocytes % 12.0 L Monocytes % 11.1 H Eosinophils % 4.0 Basophils % 0.4 Nucleated Red Blood Cells % 0.0 Neutrophils # 5.8 Lymphocytes # 1.0 Monocytes # 0.9 Eosinophils # 0.3 Basophils # 0.0 Nucleated Red Blood Cells # 0.0 Sodium Level 142 Potassium Level 4.5 Chloride Level 95 L Carbon Dioxide Level 29 Anion Gap 23 H Blood Urea Nitrogen 38 H Creatinine 5.70 H Glucose Level 120 # Calcium Level 7.5 L Medications Current Medications Benazepril HCl (Lotensin) 40 mg DAILY PO Last administered on 11/17/16 09:10; Admin Dose 40 MG; Start 11/14/16 at 09:00 Folic Acid (Folic Acid) 1 mg DAILY PO Last administered on 11/17/16 09:12; Admin Dose 1 MG; Start 11/14/16 at 09:00 Gabapentin (Neurontin) 100 mg TID PO Last administered on 11/17/16 09:12; Admin Dose 100 MG; Start 11/14/16 at 09:00 Nifedipine (Procardia Xl) 30 mg QAM PO Last administered on 11/17/16 09:12; Admin Dose 30 MG; Start 11/14/16 at 09:00 Pentoxifylline (Trental) 400 mg DAILY PO Last administered on 11/17/16 09:12; Admin Dose 400 MG; Start 11/14/16 at 09:00 Zinc Sulfate (Zinc Sulfate) 220 mg TID PO Last administered on 11/17/16 09:12 ; Admin Dose 220 MG; Start 11/14/16 at 09:00 Nifedipine (Procardia Xl) 60 mg QPM PO Last administered on 11/16/16 20:34; Admin Dose 60 MG; Start 11/13/16 at 23:40 Hydralazine HCl (Apresoline) 20 mg Q6H PRN IV ELEVATED SYSTOLIC BP Last administered on 11/13/16 23:49; Admin Dose 20 MG; Start 11/13/16 at 23:30 Acetaminophen (Tylenol Tab) 650 mg Q4H PRN PO PAIN AND OR ELEVATED TEMP; Start 11/13/16 at 23:30 Diagnostic Test (Pha) (Accu-Chek) 1 ea 02 XX ; Start 11/14/16 at 02:00 Miscellaneous Information 1 ea NOTE XX ; Start 11/13/16 at 23:45 Glucose (Glutose) 15 gm Q15M PRN PO DECREASED GLUCOSE; Start 11/13/16 at 23:45 Glucose (Glutose) 22.5 gm Q15M PRN PO DECREASED GLUCOSE; Start 11/13/16 at 23: 45 Dextrose (D50w Syringe) 25 ml Q15M PRN IV DECREASED GLUCOSE; Start 11/13/16 at 23:45 Dextrose (D50w Syringe) 50 ml Q15M PRN IV DECREASED GLUCOSE; Start 11/13/16 at 23:45 Glucagon (Glucagen) 1 mg Q15M PRN IM DECREASED GLUCOSE; Start 11/13/16 at 23:45 Glucose (Glutose) 15 gm Q15M PRN BUCCAL DECREASED GLUCOSE; Start 11/13/16 at 23 :45 Ondansetron HCl (Zofran Inj) 4 mg Q6H PRN IV NAUSEA AND/OR VOMITING Last administered on 11/14/16 15:10; Admin Dose 4 MG; Start 11/14/16 at 06:00 Insulin Glargine (Lantus) 18 unit DAILY@20 SC Last administered on 11/16/16 20 :37; Admin Dose 18 UNIT; Start 11/16/16 at 20:00 Aspirin (Halfprin) 81 mg DAILY PO Last administered on 11/17/16 09:12; Admin Dose 81 MG; Start 11/16/16 at 16:00 Amiodarone HCl (Cordarone) 200 mg BID PO Last administered on 11/17/16 09:11; Admin Dose 200 MG; Start 11/16/16 at 21:00 Assessment/Plan Chief Complaint/Hosp Course 1. End-stage renal disease. The patient is on dialysis Saturday, Saturday, Saturday. She had hemodialysis yesterday. Plan for dialysis tomorrow. 2. Access. The patient has a Perm-A-Cath placed 3. Hyperkalemia improved 5. Hypertension. Continue current blood pressure regime 6. Anemia of chronic disease. Continue to monitor hemoglobin and hematocrit levels. Continue Epogen. 7. Mineral bone disorder. Continue to monitor calcium and phosphate levels. Continue phosphorus binders. 8. Diabetes. Continue Accu-Cheks and insulin sliding scale. 9. Atrial fibrillation, rate controlled. Continue current medical management. 10. Hyponatremia -Dialysis on 140 sodium bath, limit free water Problems: LEAH PALACIOS MD Nov 17, 2016 09:40
--- NOTE | 2016-11-17 10:20 | PN ---
Date/Time of Note Date/Time of Note DATE: 11/17/16 TIME: 10:17 Assessment/Plan VTE Prophylaxis VTE Prophylaxis Intervention: SCD's Lines/Catheters IV Catheter Type (from [facility] Perm a cath Urinary Cath still in place: No Assessment/Plan Assessment/Plan 1. End-stage renal disease. The patient is on dialysis Saturday, Saturday, Saturday. 2. Access. The patient has a Perm-A-Cath placed 3. Hyperkalemia improved 5. Hypertension. Continue current blood pressure regime 6. Anemia of chronic disease. Continue to monitor hemoglobin and hematocrit levels. Continue Epogen. 7. Mineral bone disorder. Continue to monitor calcium and phosphate levels. Continue phosphorus binders. 8. Diabetes. Continue Accu-Cheks and insulin sliding scale. 9. Atrial fibrillation, rate controlled. Continue current medical management. Curretnly in nsr and stabel with amiodarone. I would strongly consider Eliquis 5mg bid (age <80kg, wieght >60kg) if no contraindication Subjective 24 Hr Interval Summary Free Text/Dictation This 61-year-old female came immediately from dialysis because her left-sided Milton catheter is not functioning. She also feels very uncomfortable and states that she gets this way when her blood pressure is very high. She cannot describe any specific symptoms. She has had problems with it before. She was not able to receive any dialysis. She has a left arm fistula that was recently placed but has not been cleared to use yet. She does have an appointment on December 04 to get it checked. She went into transient afib and currently in nsr and stable on amiodarone Exam/Review of Systems Vital Signs Vitals Vital Signs Date Time Temp Pulse Resp B/P Pulse Ox O2 Delivery O2 Flow Rate FiO2 11/17/16 08:20 69 11/17/16 08:03 98.8 16 100/53 92 11/13/16 21:50 Room Air Intake and Output 11/16/16 11/16/16 11/17/16 15:00 23:00 07:00 Intake Total 700 ml 800 ml 480 ml Output Total 1700 ml Balance -1000 ml 800 ml 480 ml Results Result Diagram: 11/17/16 0543 11/17/16 0546 Results 24 hrs Laboratory Tests Test 11/16/16 12:02 11/16/16 16:38 11/16/16 16:53 11/16/16 20:28 Bedside Glucose 277 H 253 H 216 Magnesium Level 1.9 Test 11/17/16 01:28 11/17/16 05:43 11/17/16 05:46 11/17/16 08:40 Bedside Glucose 170 118 White Blood Count 8.0 Red Blood Count 3.14 L Hemoglobin 9.5 L Hematocrit 31.1 L Mean Corpuscular Volume 99.0 Mean Corpuscular Hemoglobin 30.3 Mean Corpuscular Hemoglobin Concent 30.5 L Red Cell Distribution Width 17.0 H Platelet Count 92 #L Mean Platelet Volume 12.0 H Neutrophils % 72.0 Lymphocytes % 12.0 L Monocytes % 11.1 H Eosinophils % 4.0 Basophils % 0.4 Nucleated Red Blood Cells % 0.0 Neutrophils # 5.8 Lymphocytes # 1.0 Monocytes # 0.9 Eosinophils # 0.3 Basophils # 0.0 Nucleated Red Blood Cells # 0.0 Sodium Level 142 Potassium Level 4.5 Chloride Level 95 L Carbon Dioxide Level 29 Anion Gap 23 H Blood Urea Nitrogen 38 H Creatinine 5.70 H Glucose Level 120 # Calcium Level 7.5 L Medications Medications Current Medications Benazepril HCl (Lotensin) 40 mg DAILY PO Last administered on 11/17/16 09:10; Admin Dose 40 MG; Start 11/14/16 at 09:00 Folic Acid (Folic Acid) 1 mg DAILY PO Last administered on 11/17/16 09:12; Admin Dose 1 MG; Start 11/14/16 at 09:00 Gabapentin (Neurontin) 100 mg TID PO Last administered on 11/17/16 09:12; Admin Dose 100 MG; Start 11/14/16 at 09:00 Nifedipine (Procardia Xl) 30 mg QAM PO Last administered on 11/17/16 09:12; Admin Dose 30 MG; Start 11/14/16 at 09:00 Pentoxifylline (Trental) 400 mg DAILY PO Last administered on 11/17/16 09:12; Admin Dose 400 MG; Start 11/14/16 at 09:00 Zinc Sulfate (Zinc Sulfate) 220 mg TID PO Last administered on 11/17/16 09:12 ; Admin Dose 220 MG; Start 11/14/16 at 09:00 Nifedipine (Procardia Xl) 60 mg QPM PO Last administered on 11/16/16 20:34; Admin Dose 60 MG; Start 11/13/16 at 23:40 Hydralazine HCl (Apresoline) 20 mg Q6H PRN IV ELEVATED SYSTOLIC BP Last administered on 11/13/16 23:49; Admin Dose 20 MG; Start 11/13/16 at 23:30 Acetaminophen (Tylenol Tab) 650 mg Q4H PRN PO PAIN AND OR ELEVATED TEMP; Start 11/13/16 at 23:30 Diagnostic Test (Pha) (Accu-Chek) 1 ea 02 XX ; Start 11/14/16 at 02:00 Miscellaneous Information 1 ea NOTE XX ; Start 11/13/16 at 23:45 Glucose (Glutose) 15 gm Q15M PRN PO DECREASED GLUCOSE; Start 11/13/16 at 23:45 Glucose (Glutose) 22.5 gm Q15M PRN PO DECREASED GLUCOSE; Start 11/13/16 at 23: 45 Dextrose (D50w Syringe) 25 ml Q15M PRN IV DECREASED GLUCOSE; Start 11/13/16 at 23:45 Dextrose (D50w Syringe) 50 ml Q15M PRN IV DECREASED GLUCOSE; Start 11/13/16 at 23:45 Glucagon (Glucagen) 1 mg Q15M PRN IM DECREASED GLUCOSE; Start 11/13/16 at 23:45 Glucose (Glutose) 15 gm Q15M PRN BUCCAL DECREASED GLUCOSE; Start 11/13/16 at 23 :45 Ondansetron HCl (Zofran Inj) 4 mg Q6H PRN IV NAUSEA AND/OR VOMITING Last administered on 11/14/16 15:10; Admin Dose 4 MG; Start 11/14/16 at 06:00 Insulin Glargine (Lantus) 18 unit DAILY@20 SC Last administered on 11/16/16 20 :37; Admin Dose 18 UNIT; Start 11/16/16 at 20:00 Aspirin (Halfprin) 81 mg DAILY PO Last administered on 11/17/16 09:12; Admin Dose 81 MG; Start 11/16/16 at 16:00 Amiodarone HCl (Cordarone) 200 mg BID PO Last administered on 11/17/16 09:11; Admin Dose 200 MG; Start 11/16/16 at 21:00 KAT CHAPPELL MD Nov 17, 2016 10:20
--- NOTE | 2016-11-17 17:28 | PN ---
Date/Time of Note Date/Time of Note DATE: 11/17/16 TIME: 17:16 Assessment/Plan VTE Prophylaxis VTE Prophylaxis Intervention: other Lines/Catheters IV [facility] Type (from [facility] Permacath Urinary Cath still in place: No Assessment/Plan Assessment/Plan -Atrial fibrillation with rapid ventricular response, converted to sinus rhythm on Cardizem drip, will start aspirin and amiodarone. Dr. Silveira is asked to see patient in cardiology consultation. -Hypertensive urgency, continue benazepril and Procardia. -Left Milton catheter malfunction, status post catheter exchange by Dr. Balbuena. -End-stage renal disease, Dr. Ndiaye is following in nephrology consultation. -Diabetes mellitus, hemoglobin A1c 7.6, continue Lantus and NovoLog. -S/p left radiocephalic arteriovenous fistula by Dr Balbuena on 10/12/16. -Hypothyroidism, continue levothyroxine. Further recommendations based on clinical course. Plan of care discussed with Dr. Alxeander. Subjective 24 Hr Interval Summary Free Text/Dictation resting, denies any chest pain, cont to monitor- staff. Constitutional: requiring IVF, requiring O2 Respiratory: no complaints Cardiovascular: no complaints Gastrointestinal: no complaints Genitourinary: no complaints Musculoskeletal: no complaints Exam/Review of Systems Vital Signs Vitals Vital Signs Date Time Temp Pulse Resp B/P Pulse Ox O2 Delivery O2 Flow Rate FiO2 11/17/16 16:23 74 11/17/16 15:35 97.8 18 106/55 97 11/13/16 21:50 Room Air Intake and Output 11/16/16 11/16/16 11/17/16 15:00 23:00 07:00 Intake Total 700 ml 800 ml 480 ml Output Total 1700 ml Balance -1000 ml 800 ml 480 ml Exam Constitutional: alert, well developed Respiratory: clear to auscultation, normal air movement Cardiovascular: nl pulses (SR - 70's), regular rate and rhythm Gastrointestinal: non-tender, soft Musculoskeletal: nl extremities to inspection Extremities: normal pulses Neurological: nl mental status, nl speech Results Result Diagram: 11/17/16 0543 11/17/16 0546 Results 24 hrs Laboratory Tests Test 11/16/16 20:28 11/17/16 01:28 11/17/16 05:43 11/17/16 05:46 Bedside Glucose 216 170 White Blood Count 8.0 Red Blood Count 3.14 L Hemoglobin 9.5 L Hematocrit 31.1 L Mean Corpuscular Volume 99.0 Mean Corpuscular Hemoglobin 30.3 Mean Corpuscular Hemoglobin Concent 30.5 L Red Cell Distribution Width 17.0 H Platelet Count 92 #L Mean Platelet Volume 12.0 H Neutrophils % 72.0 Lymphocytes % 12.0 L Monocytes % 11.1 H Eosinophils % 4.0 Basophils % 0.4 Nucleated Red Blood Cells % 0.0 Neutrophils # 5.8 Lymphocytes # 1.0 Monocytes # 0.9 Eosinophils # 0.3 Basophils # 0.0 Nucleated Red Blood Cells # 0.0 Sodium Level 142 Potassium Level 4.5 Chloride Level 95 L Carbon Dioxide Level 29 Anion Gap 23 H Blood Urea Nitrogen 38 H Creatinine 5.70 H Glucose Level 120 # Calcium Level 7.5 L Test 11/17/16 08:40 11/17/16 12:55 Bedside Glucose 118 208 Medications Medications Current Medications Benazepril HCl (Lotensin) 40 mg DAILY PO Last administered on 11/17/16 09:10; Admin Dose 40 MG; Start 11/14/16 at 09:00 Folic Acid (Folic Acid) 1 mg DAILY PO Last administered on 11/17/16 09:12; Admin Dose 1 MG; Start 11/14/16 at 09:00 Gabapentin (Neurontin) 100 mg TID PO Last administered on 11/17/16 13:02; Admin Dose 100 MG; Start 11/14/16 at 09:00 Nifedipine (Procardia Xl) 30 mg QAM PO Last administered on 11/17/16 09:12; Admin Dose 30 MG; Start 11/14/16 at 09:00 Pentoxifylline (Trental) 400 mg DAILY PO Last administered on 11/17/16 09:12; Admin Dose 400 MG; Start 11/14/16 at 09:00 Zinc Sulfate (Zinc Sulfate) 220 mg TID PO Last administered on 11/17/16 13:02 ; Admin Dose 220 MG; Start 11/14/16 at 09:00 Nifedipine (Procardia Xl) 60 mg QPM PO Last administered on 11/16/16 20:34; Admin Dose 60 MG; Start 11/13/16 at 23:40 Hydralazine HCl (Apresoline) 20 mg Q6H PRN IV ELEVATED SYSTOLIC BP Last administered on 11/13/16 23:49; Admin Dose 20 MG; Start 11/13/16 at 23:30 Acetaminophen (Tylenol Tab) 650 mg Q4H PRN PO PAIN AND OR ELEVATED TEMP; Start 11/13/16 at 23:30 Diagnostic Test (Pha) (Accu-Chek) 1 ea 02 XX ; Start 11/14/16 at 02:00 Miscellaneous Information 1 ea NOTE XX ; Start 11/13/16 at 23:45 Glucose (Glutose) 15 gm Q15M PRN PO DECREASED GLUCOSE; Start 11/13/16 at 23:45 Glucose (Glutose) 22.5 gm Q15M PRN PO DECREASED GLUCOSE; Start 11/13/16 at 23: 45 Dextrose (D50w Syringe) 25 ml Q15M PRN IV DECREASED GLUCOSE; Start 11/13/16 at 23:45 Dextrose (D50w Syringe) 50 ml Q15M PRN IV DECREASED GLUCOSE; Start 11/13/16 at 23:45 Glucagon (Glucagen) 1 mg Q15M PRN IM DECREASED GLUCOSE; Start 11/13/16 at 23:45 Glucose (Glutose) 15 gm Q15M PRN BUCCAL DECREASED GLUCOSE; Start 11/13/16 at 23 :45 Ondansetron HCl (Zofran Inj) 4 mg Q6H PRN IV NAUSEA AND/OR VOMITING Last administered on 11/14/16 15:10; Admin Dose 4 MG; Start 11/14/16 at 06:00 Insulin Glargine (Lantus) 18 unit DAILY@20 SC Last administered on 11/16/16 20 :37; Admin Dose 18 UNIT; Start 11/16/16 at 20:00 Aspirin (Halfprin) 81 mg DAILY PO Last administered on 11/17/16 09:12; Admin Dose 81 MG; Start 11/16/16 at 16:00 Amiodarone HCl (Cordarone) 200 mg BID PO Last administered on 11/17/16 09:11; Admin Dose 200 MG; Start 11/16/16 at 21:00 MERI CRUZ Nov 17, 2016 17:26
[2016-11-17] MEDS: NIFEdipine (XL) 60 MG TAB PO SCH (20:58)
[2016-11-17] MEDS: INSULIN GLARGINE [LANtus] 3 ML PEN SC SCH (21:07)
[2016-11-18] VITALS (12 sets, daily range): BP systolic 125–141; BP diastolic 60–67; PULSE 69–85; RESP 15–20
[2016-11-18 06:24] LABS: ADD SCAN DIFF NO
[2016-11-18 06:27] LABS: BASOPHIL # 0.1 10^3/ul (0.0-0.1); BASOPHILS % 0.6 % (0.0-2.0); EOSINOPHILS # 0.5 10^3/ul (0.0-0.5); EOSINOPHILS % 6.3 % (0.0-7.0); HEMATOCRIT 28.7 % (37.0-47.0); HEMOGLOBIN 9.1 g/dl (12.0-16.0); LYMPHOCYTES # 1.2 10^3/ul (0.8-2.9); LYMPHOCYTES % 14.2 % (15.0-51.0); MEAN CORPUSCULAR HEMOGLOBIN 31.1 pg (29.0-33.0); MEAN CORPUSCULAR HGB CONC 31.7 g/dl (32.0-37.0); MONOCYTE # 0.7 10^3/ul (0.3-0.9); MONOCYTES % 8.3 % (0.0-11.0); NEUTROPHIL # 5.7 10^3/ul (1.6-7.5); NEUTROPHILS % 70.2 % (39.0-77.0); PLATELET COUNT 104 10^3/UL (140-415); RED BLOOD COUNT 2.93 10^6/ul (4.20-5.40); RED CELL DISTRIBUTION WIDTH 16.5 % (11.5-14.5); WHITE BLOOD COUNT 8.2 10^3/ul (4.8-10.8)
[2016-11-18] MEDS: BUMETANIDE 1 MG TAB PO SCH ×2 (06:44→17:36)
[2016-11-18] MEDS: LEVOTHYROXINE 125 MCG TAB PO SCH (06:44)
[2016-11-18 06:49] LABS: CALCIUM 7.6 mg/dl (8.4-10.2); CREATININE 6.9 mg/dl (0.44-1.00); POTASSIUM 4.8 mmol/L (3.5-5.1)
[2016-11-18] MEDS: CALCIUM ACETATE 667 MG CAP PO SCH ×3 (08:36→17:35)
[2016-11-18] MEDS: BENAZEPRIL 40 MG TAB PO SCH (08:37)
[2016-11-18] MEDS: FOLIC ACID 1 MG TAB PO SCH (08:37)
[2016-11-18] MEDS: PENTOXIFYLLINE (SR) 400 MG TAB PO SCH (08:37)
[2016-11-18] MEDS: GABAPENTIN 100 MG CAP PO SCH ×3 (08:37→20:18)
[2016-11-18] MEDS: ZINC SULFATE 220 MG CAP PO SCH ×3 (08:37→20:19)
[2016-11-18] MEDS: NIFEdipine (XL) 30 MG TAB PO SCH (08:37)
[2016-11-18] MEDS: ASPIRIN (EC) 81 MG TAB PO SCH (08:37)
[2016-11-18] MEDS: AMIODARONE 200 MG TAB PO SCH ×2 (08:38→20:18)
[2016-11-18] MEDS: INSULIN ASPART [NOVOLOG] 3 ML PEN SC SCH ×7 (08:42→20:20)
--- NOTE | 2016-11-18 11:14 | CONS ---
Date/Time of Note Date/Time of Note DATE: 11/18/16 TIME: 11:10 Consult Date/Type/Reason Admit Date/Time Nov 13, 2016 at 19:02 Type of Consultation: nephrology Subjective This 61-year-old female came immediately from dialysis because her left-sided Milton catheter is not functioning. She has had problems with it before. She was not able to receive any dialysis. She has a left arm fistula that was recently placed but has not been cleared to use yet. she is on hd today. poc reviewed with dr. maxwell. Patient developed atrial fibrillation with rapid ventricular response during dialysis, started on Cardizem drip and converted to sinus rhythm. Patient remains hemodynamically stable. Constitutional: alert, oriented Head: normocephalic Eyes: nl conjunctiva Neck: supple Respiratory: normal air movement Cardiovascular: nl pulses, regular rate and rhythm Gastrointestinal: non-tender, soft Musculoskeletal: nl extremities to inspection Extremities: normal pulses Neurological: nl mental status Skin: nl turgor Lymph: nl lymph nodes Objective Vital Signs Date Time Temp Pulse Resp B/P Pulse Ox O2 Delivery O2 Flow Rate FiO2 11/18/16 08:45 72 11/18/16 07:38 98.0 18 125/60 98 Intake and Output 11/17/16 11/17/16 11/18/16 15:00 23:00 07:00 Intake Total 500 ml 480 ml Balance 500 ml 480 ml Results/Medications Result Diagram: 11/18/16 0554 11/18/16 0554 Results 24 hrs Laboratory Tests Test 11/17/16 12:55 11/17/16 18:26 11/17/16 20:57 11/18/16 05:54 Bedside Glucose 208 191 122 White Blood Count 8.2 Red Blood Count 2.93 L Hemoglobin 9.1 L Hematocrit 28.7 L Mean Corpuscular Volume 98.0 Mean Corpuscular Hemoglobin 31.1 Mean Corpuscular Hemoglobin Concent 31.7 L Red Cell Distribution Width 16.5 H Platelet Count 104 L Mean Platelet Volume 12.0 H Neutrophils % 70.2 Lymphocytes % 14.2 L Monocytes % 8.3 Eosinophils % 6.3 Basophils % 0.6 Nucleated Red Blood Cells % 0.0 Neutrophils # 5.7 Lymphocytes # 1.2 Monocytes # 0.7 Eosinophils # 0.5 Basophils # 0.1 Nucleated Red Blood Cells # 0.0 Sodium Level 139 Potassium Level 4.8 Chloride Level 94 L Carbon Dioxide Level 28 Anion Gap 22 H Blood Urea Nitrogen 51 H Creatinine 6.90 H Glucose Level 159 Calcium Level 7.6 L Test 11/18/16 08:34 Bedside Glucose 147 Medications Current Medications Benazepril HCl (Lotensin) 40 mg DAILY PO Last administered on 11/18/16 08:37; Admin Dose 40 MG; Start 11/14/16 at 09:00 Folic Acid (Folic Acid) 1 mg DAILY PO Last administered on 11/18/16 08:37; Admin Dose 1 MG; Start 11/14/16 at 09:00 Gabapentin (Neurontin) 100 mg TID PO Last administered on 11/18/16 08:37; Admin Dose 100 MG; Start 11/14/16 at 09:00 Nifedipine (Procardia Xl) 30 mg QAM PO Last administered on 11/18/16 08:37; Admin Dose 30 MG; Start 11/14/16 at 09:00 Pentoxifylline (Trental) 400 mg DAILY PO Last administered on 11/18/16 08:37; Admin Dose 400 MG; Start 11/14/16 at 09:00 Zinc Sulfate (Zinc Sulfate) 220 mg TID PO Last administered on 11/18/16 08:37 ; Admin Dose 220 MG; Start 11/14/16 at 09:00 Nifedipine (Procardia Xl) 60 mg QPM PO Last administered on 11/17/16 20:58; Admin Dose 60 MG; Start 11/13/16 at 23:40 Hydralazine HCl (Apresoline) 20 mg Q6H PRN IV ELEVATED SYSTOLIC BP Last administered on 11/13/16 23:49; Admin Dose 20 MG; Start 11/13/16 at 23:30 Acetaminophen (Tylenol Tab) 650 mg Q4H PRN PO PAIN AND OR ELEVATED TEMP; Start 11/13/16 at 23:30 Diagnostic Test (Pha) (Accu-Chek) 1 ea 02 XX ; Start 11/14/16 at 02:00 Miscellaneous Information 1 ea NOTE XX ; Start 11/13/16 at 23:45 Glucose (Glutose) 15 gm Q15M PRN PO DECREASED GLUCOSE; Start 11/13/16 at 23:45 Glucose (Glutose) 22.5 gm Q15M PRN PO DECREASED GLUCOSE; Start 11/13/16 at 23: 45 Dextrose (D50w Syringe) 25 ml Q15M PRN IV DECREASED GLUCOSE; Start 11/13/16 at 23:45 Dextrose (D50w Syringe) 50 ml Q15M PRN IV DECREASED GLUCOSE; Start 11/13/16 at 23:45 Glucagon (Glucagen) 1 mg Q15M PRN IM DECREASED GLUCOSE; Start 11/13/16 at 23:45 Glucose (Glutose) 15 gm Q15M PRN BUCCAL DECREASED GLUCOSE; Start 11/13/16 at 23 :45 Ondansetron HCl (Zofran Inj) 4 mg Q6H PRN IV NAUSEA AND/OR VOMITING Last administered on 11/14/16 15:10; Admin Dose 4 MG; Start 11/14/16 at 06:00 Insulin Glargine (Lantus) 18 unit DAILY@20 SC Last administered on 11/17/16 21 :07; Admin Dose 18 UNIT; Start 11/16/16 at 20:00 Aspirin (Halfprin) 81 mg DAILY PO Last administered on 11/18/16 08:37; Admin Dose 81 MG; Start 11/16/16 at 16:00 Amiodarone HCl (Cordarone) 200 mg BID PO Last administered on 11/18/16 08:38; Admin Dose 200 MG; Start 11/16/16 at 21:00 Assessment/Plan Chief Complaint/Hosp Course 1. End-stage renal disease. The patient is on dialysis Saturday, Saturday, Saturday as outpatient. on hd today. assess daily for hd need.. 2. Access. The patient has a Perm-A-Cath placed 3. Hyperkalemia improved 5. Hypertension. Continue current blood pressure regime 6. Anemia of chronic disease. Continue to monitor hemoglobin and hematocrit levels. Continue Epogen. 7. Mineral bone disorder. Continue to monitor calcium and phosphate levels. Continue phosphorus binders. 8. Diabetes. Continue Accu-Cheks and insulin sliding scale. 9. Atrial fibrillation, rate controlled. Continue current medical management. 10. Hyponatremia -Dialysis on 140 sodium bath, limit free water Problems: LEAH PALACIOS MD Nov 18, 2016 11:13
--- NOTE | 2016-11-18 12:56 | CONS ---
Date/Time of Note Date/Time of Note DATE: 11/18/16 TIME: 12:51 Assessment/Plan Assessment/Plan Additional Assessment/Plan Paroxysmal atrial fibrillation with rapid ventricular rates, currently sinus rhythm Hemodialysis, end-stage renal disease Hypertension Anemia -Patient currently remains in sinus rhythm. Episode of atrial fibrillation occurred during hemodialysis and converted back to sinus rhythm. On review of patient's laboratory studies, hemoglobin has been dropping, given the worsening anemia, I would be hesitant of initiating anticoagulation at the current time. Continue amiodarone, start beta-erin as heart rate and blood pressure permits. Consultation Date/Type/Reason Admit Date/Time Nov 13, 2016 at 19:02 Initial Consult Date Type of Consultation: cv 24 HR Interval Summary Free Text/Dictation Patient seen and examined, denies further palpitations, denies dizziness or lightheadedness at rest or with activity Exam/Review of Systems Vital Signs Vitals Vital Signs Date Time Temp Pulse Resp B/P Pulse Ox O2 Delivery O2 Flow Rate FiO2 11/18/16 12:31 98.0 75 18 133/67 98 Intake and Output 11/17/16 11/17/16 11/18/16 15:00 23:00 07:00 Intake Total 500 ml 480 ml Balance 500 ml 480 ml Exam No apparent distress, sitting in chair Constitutional: alert, oriented Head: normocephalic Neck: supple Respiratory: other (Coarse breath sounds bilaterally, no wheezing) Cardiovascular: other (S1-S2 heard), regular rate and rhythm Gastrointestinal: bowel sounds, non-tender, soft Extremities: edema Results Result Diagram: 11/18/16 0554 11/18/16 0554 Results 24 hrs Laboratory Tests Test 11/17/16 12:55 11/17/16 18:26 11/17/16 20:57 11/18/16 05:54 Bedside Glucose 208 191 122 White Blood Count 8.2 Red Blood Count 2.93 L Hemoglobin 9.1 L Hematocrit 28.7 L Mean Corpuscular Volume 98.0 Mean Corpuscular Hemoglobin 31.1 Mean Corpuscular Hemoglobin Concent 31.7 L Red Cell Distribution Width 16.5 H Platelet Count 104 L Mean Platelet Volume 12.0 H Neutrophils % 70.2 Lymphocytes % 14.2 L Monocytes % 8.3 Eosinophils % 6.3 Basophils % 0.6 Nucleated Red Blood Cells % 0.0 Neutrophils # 5.7 Lymphocytes # 1.2 Monocytes # 0.7 Eosinophils # 0.5 Basophils # 0.1 Nucleated Red Blood Cells # 0.0 Sodium Level 139 Potassium Level 4.8 Chloride Level 94 L Carbon Dioxide Level 28 Anion Gap 22 H Blood Urea Nitrogen 51 H Creatinine 6.90 H Glucose Level 159 Calcium Level 7.6 L Test 11/18/16 08:34 11/18/16 12:38 Bedside Glucose 147 103 Medications Medications Current Medications Benazepril HCl (Lotensin) 40 mg DAILY PO Last administered on 11/18/16 08:37; Admin Dose 40 MG; Start 11/14/16 at 09:00 Folic Acid (Folic Acid) 1 mg DAILY PO Last administered on 11/18/16 08:37; Admin Dose 1 MG; Start 11/14/16 at 09:00 Gabapentin (Neurontin) 100 mg TID PO Last administered on 11/18/16 12:41; Admin Dose 100 MG; Start 11/14/16 at 09:00 Nifedipine (Procardia Xl) 30 mg QAM PO Last administered on 11/18/16 08:37; Admin Dose 30 MG; Start 11/14/16 at 09:00 Pentoxifylline (Trental) 400 mg DAILY PO Last administered on 11/18/16 08:37; Admin Dose 400 MG; Start 11/14/16 at 09:00 Zinc Sulfate (Zinc Sulfate) 220 mg TID PO Last administered on 11/18/16 12:41 ; Admin Dose 220 MG; Start 11/14/16 at 09:00 Nifedipine (Procardia Xl) 60 mg QPM PO Last administered on 11/17/16 20:58; Admin Dose 60 MG; Start 11/13/16 at 23:40 Hydralazine HCl (Apresoline) 20 mg Q6H PRN IV ELEVATED SYSTOLIC BP Last administered on 11/13/16 23:49; Admin Dose 20 MG; Start 11/13/16 at 23:30 Acetaminophen (Tylenol Tab) 650 mg Q4H PRN PO PAIN AND OR ELEVATED TEMP; Start 11/13/16 at 23:30 Diagnostic Test (Pha) (Accu-Chek) 1 ea 02 XX ; Start 11/14/16 at 02:00 Miscellaneous Information 1 ea NOTE XX ; Start 11/13/16 at 23:45 Glucose (Glutose) 15 gm Q15M PRN PO DECREASED GLUCOSE; Start 11/13/16 at 23:45 Glucose (Glutose) 22.5 gm Q15M PRN PO DECREASED GLUCOSE; Start 11/13/16 at 23: 45 Dextrose (D50w Syringe) 25 ml Q15M PRN IV DECREASED GLUCOSE; Start 11/13/16 at 23:45 Dextrose (D50w Syringe) 50 ml Q15M PRN IV DECREASED GLUCOSE; Start 11/13/16 at 23:45 Glucagon (Glucagen) 1 mg Q15M PRN IM DECREASED GLUCOSE; Start 11/13/16 at 23:45 Glucose (Glutose) 15 gm Q15M PRN BUCCAL DECREASED GLUCOSE; Start 11/13/16 at 23 :45 Ondansetron HCl (Zofran Inj) 4 mg Q6H PRN IV NAUSEA AND/OR VOMITING Last administered on 11/14/16 15:10; Admin Dose 4 MG; Start 11/14/16 at 06:00 Insulin Glargine (Lantus) 18 unit DAILY@20 SC Last administered on 11/17/16 21 :07; Admin Dose 18 UNIT; Start 11/16/16 at 20:00 Aspirin (Halfprin) 81 mg DAILY PO Last administered on 11/18/16 08:37; Admin Dose 81 MG; Start 11/16/16 at 16:00 Amiodarone HCl (Cordarone) 200 mg BID PO Last administered on 11/18/16 08:38; Admin Dose 200 MG; Start 11/16/16 at 21:00 Filipe Silveira DO Nov 18, 2016 12:56
--- NOTE | 2016-11-18 14:51 | PN ---
Date/Time of Note Date/Time of Note DATE: 11/18/16 TIME: 14:47 Assessment/Plan VTE Prophylaxis VTE Prophylaxis Intervention: other Lines/Catheters IV [facility]ter Type (from [facility] Permacath Urinary Cath still in place: No Assessment/Plan Assessment/Plan -Atrial fibrillation with rapid ventricular response, converted to sinus rhythm on Cardizem drip, will start aspirin and amiodarone. Dr. Silveira is asked to see patient in cardiology consultation. -Hypertensive urgency, continue benazepril and Procardia. -Left Milton catheter malfunction, status post catheter exchange by Dr. Balbuena. -End-stage renal disease, Dr. Ndiaye is following in nephrology consultation. -Diabetes mellitus, hemoglobin A1c 7.6, continue Lantus and NovoLog. -S/p left radiocephalic arteriovenous fistula by Dr Balbuena on 10/12/16. -Hypothyroidism, continue levothyroxine. Further recommendations based on clinical course. Plan of care discussed with Dr. Alexander. Subjective 24 Hr Interval Summary Free Text/Dictation cont to monitor, dw staff Respiratory: no complaints Cardiovascular: no complaints Gastrointestinal: no complaints Genitourinary: no complaints Musculoskeletal: no complaints Exam/Review of Systems Vital Signs Vitals Vital Signs Date Time Temp Pulse Resp B/P Pulse Ox O2 Delivery O2 Flow Rate FiO2 11/18/16 12:31 98.0 75 18 133/67 98 Intake and Output 11/17/16 11/17/16 11/18/16 15:00 23:00 07:00 Intake Total 500 ml 480 ml Balance 500 ml 480 ml Exam Respiratory: clear to auscultation Cardiovascular: nl pulses, other (x1 episode of multifocal couples) Musculoskeletal: nl extremities to inspection Extremities: normal pulses Neurological: nl mental status, nl speech Results Result Diagram: 11/18/16 0554 11/18/16 0554 Results 24 hrs Laboratory Tests Test 11/17/16 18:26 11/17/16 20:57 11/18/16 05:54 11/18/16 08:34 Bedside Glucose 191 122 147 White Blood Count 8.2 Red Blood Count 2.93 L Hemoglobin 9.1 L Hematocrit 28.7 L Mean Corpuscular Volume 98.0 Mean Corpuscular Hemoglobin 31.1 Mean Corpuscular Hemoglobin Concent 31.7 L Red Cell Distribution Width 16.5 H Platelet Count 104 L Mean Platelet Volume 12.0 H Neutrophils % 70.2 Lymphocytes % 14.2 L Monocytes % 8.3 Eosinophils % 6.3 Basophils % 0.6 Nucleated Red Blood Cells % 0.0 Neutrophils # 5.7 Lymphocytes # 1.2 Monocytes # 0.7 Eosinophils # 0.5 Basophils # 0.1 Nucleated Red Blood Cells # 0.0 Sodium Level 139 Potassium Level 4.8 Chloride Level 94 L Carbon Dioxide Level 28 Anion Gap 22 H Blood Urea Nitrogen 51 H Creatinine 6.90 H Glucose Level 159 Calcium Level 7.6 L Test 11/18/16 12:38 Bedside Glucose 103 Medications Medications Current Medications Benazepril HCl (Lotensin) 40 mg DAILY PO Last administered on 11/18/16 08:37; Admin Dose 40 MG; Start 11/14/16 at 09:00 Folic Acid (Folic Acid) 1 mg DAILY PO Last administered on 11/18/16 08:37; Admin Dose 1 MG; Start 11/14/16 at 09:00 Gabapentin (Neurontin) 100 mg TID PO Last administered on 11/18/16 12:41; Admin Dose 100 MG; Start 11/14/16 at 09:00 Nifedipine (Procardia Xl) 30 mg QAM PO Last administered on 11/18/16 08:37; Admin Dose 30 MG; Start 11/14/16 at 09:00 Pentoxifylline (Trental) 400 mg DAILY PO Last administered on 11/18/16 08:37; Admin Dose 400 MG; Start 11/14/16 at 09:00 Zinc Sulfate (Zinc Sulfate) 220 mg TID PO Last administered on 11/18/16 12:41 ; Admin Dose 220 MG; Start 11/14/16 at 09:00 Nifedipine (Procardia Xl) 60 mg QPM PO Last administered on 11/17/16 20:58; Admin Dose 60 MG; Start 11/13/16 at 23:40 Hydralazine HCl (Apresoline) 20 mg Q6H PRN IV ELEVATED SYSTOLIC BP Last administered on 11/13/16 23:49; Admin Dose 20 MG; Start 11/13/16 at 23:30 Acetaminophen (Tylenol Tab) 650 mg Q4H PRN PO PAIN AND OR ELEVATED TEMP; Start 11/13/16 at 23:30 Diagnostic Test (Pha) (Accu-Chek) 1 ea 02 XX ; Start 11/14/16 at 02:00 Miscellaneous Information 1 ea NOTE XX ; Start 11/13/16 at 23:45 Glucose (Glutose) 15 gm Q15M PRN PO DECREASED GLUCOSE; Start 11/13/16 at 23:45 Glucose (Glutose) 22.5 gm Q15M PRN PO DECREASED GLUCOSE; Start 11/13/16 at 23: 45 Dextrose (D50w Syringe) 25 ml Q15M PRN IV DECREASED GLUCOSE; Start 11/13/16 at 23:45 Dextrose (D50w Syringe) 50 ml Q15M PRN IV DECREASED GLUCOSE; Start 11/13/16 at 23:45 Glucagon (Glucagen) 1 mg Q15M PRN IM DECREASED GLUCOSE; Start 11/13/16 at 23:45 Glucose (Glutose) 15 gm Q15M PRN BUCCAL DECREASED GLUCOSE; Start 11/13/16 at 23 :45 Ondansetron HCl (Zofran Inj) 4 mg Q6H PRN IV NAUSEA AND/OR VOMITING Last administered on 11/14/16 15:10; Admin Dose 4 MG; Start 11/14/16 at 06:00 Insulin Glargine (Lantus) 18 unit DAILY@20 SC Last administered on 11/17/16 21 :07; Admin Dose 18 UNIT; Start 11/16/16 at 20:00 Aspirin (Halfprin) 81 mg DAILY PO Last administered on 11/18/16 08:37; Admin Dose 81 MG; Start 11/16/16 at 16:00 Amiodarone HCl (Cordarone) 200 mg BID PO Last administered on 11/18/16 08:38; Admin Dose 200 MG; Start 11/16/16 at 21:00 Metoprolol Tartrate (Lopressor) 12.5 mg BID PO ; Start 11/18/16 at 21:00 MERI CRUZ Nov 18, 2016 14:51
[2016-11-18] MEDS: NIFEdipine (XL) 60 MG TAB PO SCH (20:18)
[2016-11-18] MEDS: METOPROLOL 25 MG TAB PO SCH (20:19)
[2016-11-18] MEDS: INSULIN GLARGINE [LANtus] 3 ML PEN SC SCH (20:32)
[2016-11-18] MEDS: ACCU-CHEK XX SCH (22:28)
[2016-11-19] VITALS (21 sets, daily range): BP systolic 103–158; BP diastolic 53–78; PULSE 55–78; RESP 15–19
[2016-11-19] MEDS: BUMETANIDE 1 MG TAB PO SCH ×2 (05:34→18:37)
[2016-11-19] MEDS: LEVOTHYROXINE 125 MCG TAB PO SCH (05:34)
[2016-11-19] MEDS: INSULIN ASPART [NOVOLOG] 3 ML PEN SC SCH ×7 (07:55→21:00)
[2016-11-19] MEDS: CALCIUM ACETATE 667 MG CAP PO SCH ×3 (08:03→18:37)
[2016-11-19] MEDS: ZINC SULFATE 220 MG CAP PO SCH ×3 (08:04→22:56)
[2016-11-19] MEDS: FOLIC ACID 1 MG TAB PO SCH (08:04)
[2016-11-19] MEDS: AMIODARONE 200 MG TAB PO SCH ×2 (09:00→22:55)
[2016-11-19] MEDS: BENAZEPRIL 40 MG TAB PO SCH (09:00)
[2016-11-19] MEDS: NIFEdipine (XL) 30 MG TAB PO SCH (09:00)
[2016-11-19] MEDS: METOPROLOL 25 MG TAB PO SCH ×2 (09:00→22:56)
--- NOTE | 2016-11-19 09:29 | PN ---
Date/Time of Note Date/Time of Note DATE: 11/19/16 TIME: 09:28 Assessment/Plan Lines/Catheters IV Catheter Type (from [facility]): Permacath Urinary Cath still in place: No Assessment/Plan Chief Complaint/Hosp Course 1. End-stage renal disease. The patient is on dialysis Saturday, Saturday, Saturday. She had hemodialysis yesterday. Plan for dialysis today 2. Access. The patient has a Perm-A-Cath placed 3. Hyperkalemia improved 5. Hypertension. Continue current blood pressure regime 6. Anemia of chronic disease. Continue to monitor hemoglobin and hematocrit levels. Continue Epogen. 7. Mineral bone disorder. Continue to monitor calcium and phosphate levels. Continue phosphorus binders. 8. Diabetes. Continue Accu-Cheks and insulin sliding scale. 9. Atrial fibrillation, rate controlled. Continue current medical management. 10. Hyponatremia -Dialysis on 140 sodium bath, limit free water Problems: Subjective 24 Hr Interval Summary Free Text/Dictation Patient seen and examined no events overnight patient scheduled for dialysis today -Continues to have episodes of A. fib Exam/Review of Systems Vital Signs Vitals Vital Signs Date Time Temp Pulse Resp B/P Pulse Ox O2 Delivery O2 Flow Rate FiO2 11/19/16 08:02 55 11/19/16 06:52 98.3 17 103/58 94 Intake and Output 11/18/16 11/18/16 11/19/16 15:00 23:00 07:00 Intake Total 700 ml 240 ml Balance 700 ml 240 ml Exam HEENT: Head is normocephalic. NECK: Supple. HEART: Irregular LUNGS: Show diminished breath sounds at base. ABDOMEN: Soft, nontender to palpation without rebound or guarding. EXTREMITIES: Negative for clubbing, cyanosis. Positive edema, DERMATOLOGIC: No rashes. MUSCULOSKELETAL: No joint effusions, positive wounds. NEUROLOGIC: No change in exam. Results Result Diagram: 11/18/16 0554 11/18/16 0554 Results 24 hrs Laboratory Tests Test 11/18/16 12:38 11/18/16 17:31 11/18/16 20:20 11/19/16 08:02 Bedside Glucose 103 221 H 127 96 Medications Medications Current Medications Benazepril HCl (Lotensin) 40 mg DAILY PO Last administered on 11/18/16t 08:37; Admin Dose 40 MG; Start 11/14/16 at 09:00 Folic Acid (Folic Acid) 1 mg DAILY PO Last administered on 11/19/16 08:04; Admin Dose 1 MG; Start 11/14/16 at 09:00 Gabapentin (Neurontin) 100 mg TID PO Last administered on 11/18/16 20:18; Admin Dose 100 MG; Start 11/14/16 at 09:00 Nifedipine (Procardia Xl) 30 mg QAM PO Last administered on 11/18/16 08:37; Admin Dose 30 MG; Start 11/14/16 at 09:00 Pentoxifylline (Trental) 400 mg DAILY PO Last administered on 11/18/16 08:37; Admin Dose 400 MG; Start 11/14/16 at 09:00 Zinc Sulfate (Zinc Sulfate) 220 mg TID PO Last administered on 11/19/16 08:04 ; Admin Dose 220 MG; Start 11/14/16 at 09:00 Nifedipine (Procardia Xl) 60 mg QPM PO Last administered on 11/18/16 20:18; Admin Dose 60 MG; Start 11/13/16 at 23:40 Hydralazine HCl (Apresoline) 20 mg Q6H PRN IV ELEVATED SYSTOLIC BP Last administered on 11/13/16 23:49; Admin Dose 20 MG; Start 11/13/16 at 23:30 Acetaminophen (Tylenol Tab) 650 mg Q4H PRN PO PAIN AND OR ELEVATED TEMP; Start 11/13/16 at 23:30 Diagnostic Test (Pha) (Accu-Chek) 1 ea 02 XX ; Start 11/14/16 at 02:00 Miscellaneous Information 1 ea NOTE XX ; Start 11/13/16 at 23:45 Glucose (Glutose) 15 gm Q15M PRN PO DECREASED GLUCOSE; Start 11/13/16 at 23:45 Glucose (Glutose) 22.5 gm Q15M PRN PO DECREASED GLUCOSE; Start 11/13/16 at 23: 45 Dextrose (D50w Syringe) 25 ml Q15M PRN IV DECREASED GLUCOSE; Start 11/13/16 at 23:45 Dextrose (D50w Syringe) 50 ml Q15M PRN IV DECREASED GLUCOSE; Start 11/13/16 at 23:45 Glucagon (Glucagen) 1 mg Q15M PRN IM DECREASED GLUCOSE; Start 7/11/17 at 23:45 Glucose (Glutose) 15 gm Q15M PRN BUCCAL DECREASED GLUCOSE; Start 11/13/16 at 23 :45 Ondansetron HCl (Zofran Inj) 4 mg Q6H PRN IV NAUSEA AND/OR VOMITING Last administered on 11/14/16 15:10; Admin Dose 4 MG; Start 11/14/16 at 06:00 Insulin Glargine (Lantus) 18 unit DAILY@20 SC Last administered on 11/18/16 20 :32; Admin Dose 18 UNIT; Start 11/16/16 at 20:00 Aspirin (Halfprin) 81 mg DAILY PO Last administered on 11/18/16 08:37; Admin Dose 81 MG; Start 11/16/16 at 16:00 Amiodarone HCl (Cordarone) 200 mg BID PO Last administered on 11/18/16 20:18; Admin Dose 200 MG; Start 11/16/16 at 21:00 Metoprolol Tartrate (Lopressor) 12.5 mg BID PO Last administered on 11/18/16 20:19; Admin Dose 12.5 MG; Start 11/18/16 at 21:00 LY LOPZE DO Nov 19, 2016 09:29
[2016-11-19] MEDS: ASPIRIN (EC) 81 MG TAB PO SCH (09:36)
[2016-11-19] MEDS: PENTOXIFYLLINE (SR) 400 MG TAB PO SCH (09:36)
[2016-11-19] MEDS: GABAPENTIN 100 MG CAP PO SCH ×3 (09:36→22:56)
--- NOTE | 2016-11-19 13:01 | PN ---
Date/Time of Note Date/Time of Note DATE: 11/19/16 TIME: 12:52 Assessment/Plan VTE Prophylaxis VTE Prophylaxis Intervention: SCD's Lines/Catheters IV Catheter Type (from [facility]): Permacath Urinary Cath still in place: No Assessment/Plan Chief Complaint/Hosp Course Patient remains hemodynamically stable in sinus rhythm per telemetry, continue telemetry monitoring, pending hemodialysis today. Assessment/Plan -Atrial fibrillation with rapid ventricular response during hemodialysis on 11/16 , currently in sinus rhythm. Continue amiodarone and metoprolol. Dr. Silveira is following patient in cardiology consultation. -Hypertensive urgency on admission, continue benazepril and Procardia. -Left Milton catheter malfunction, status post catheter exchange by Dr. Balbuena. -End-stage renal disease, Dr. Ndiaye is following in nephrology consultation. -Diabetes mellitus, hemoglobin A1c 7.6, continue Lantus and NovoLog. -S/p left radiocephalic arteriovenous fistula by Dr Balbuena on 10/12/16. -Hypothyroidism, continue levothyroxine. Further recommendations based on clinical course. Plan of care discussed with Dr. Alexander. Problems: Exam/Review of Systems Vital Signs Vitals Vital Signs Date Time Temp Pulse Resp B/P Pulse Ox O2 Delivery O2 Flow Rate FiO2 11/19/16 11:01 98.7 72 18 122/56 97 Intake and Output 11/18/16 11/18/16 11/19/16 15:00 23:00 07:00 Intake Total 700 ml 240 ml Balance 700 ml 240 ml Exam Constitutional: alert, oriented Respiratory: normal air movement Cardiovascular: nl pulses, regular rate and rhythm Gastrointestinal: non-tender, soft Musculoskeletal: nl extremities to inspection Extremities: normal pulses Neurological: nl mental status Results Result Diagram: 11/18/16 0554 11/18/16 0554 Results 24 hrs Laboratory Tests Test 11/18/16 17:31 11/18/16 20:20 11/19/16 08:02 11/19/16 12:48 Bedside Glucose 221 H 127 96 172 Medications Medications Current Medications Benazepril HCl (Lotensin) 40 mg DAILY PO Last administered on 11/18/16 08:37; Admin Dose 40 MG; Start 11/14/16 at 09:00 Folic Acid (Folic Acid) 1 mg DAILY PO Last administered on 11/19/16 08:04; Admin Dose 1 MG; Start 11/14/16 at 09:00 Gabapentin (Neurontin) 100 mg TID PO Last administered on 11/19/16 09:36; Admin Dose 100 MG; Start 11/14/16 at 09:00 Nifedipine (Procardia Xl) 30 mg QAM PO Last administered on 11/18/16 08:37; Admin Dose 30 MG; Start 11/14/16 at 09:00 Pentoxifylline (Trental) 400 mg DAILY PO Last administered on 11/19/16 09:36; Admin Dose 400 MG; Start 11/14/16 at 09:00 Zinc Sulfate (Zinc Sulfate) 220 mg TID PO Last administered on 11/19/16 08:04 ; Admin Dose 220 MG; Start 11/14/16 at 09:00 Nifedipine (Procardia Xl) 60 mg QPM PO Last administered on 11/18/16 20:18; Admin Dose 60 MG; Start 11/13/16 at 23:40 Hydralazine HCl (Apresoline) 20 mg Q6H PRN IV ELEVATED SYSTOLIC BP Last administered on 11/13/16 23:49; Admin Dose 20 MG; Start 11/13/16 at 23:30 Acetaminophen (Tylenol Tab) 650 mg Q4H PRN PO PAIN AND OR ELEVATED TEMP; Start 11/13/16 at 23:30 Diagnostic Test (Pha) (Accu-Chek) 1 ea 02 XX ; Start 11/14/16 at 02:00 Miscellaneous Information 1 ea NOTE XX ; Start 11/13/16 at 23:45 Glucose (Glutose) 15 gm Q15M PRN PO DECREASED GLUCOSE; Start 11/13/16 at 23:45 Glucose (Glutose) 22.5 gm Q15M PRN PO DECREASED GLUCOSE; Start 11/13/16 at 23: 45 Dextrose (D50w Syringe) 25 ml Q15M PRN IV DECREASED GLUCOSE; Start 11/13/16 at 23:45 Dextrose (D50w Syringe) 50 ml Q15M PRN IV DECREASED GLUCOSE; Start 11/13/16 at 23:45 Glucagon (Glucagen) 1 mg Q15M PRN IM DECREASED GLUCOSE; Start 11/13/16 at 23:45 Glucose (Glutose) 15 gm Q15M PRN BUCCAL DECREASED GLUCOSE; Start 11/13/16 at 23 :45 Ondansetron HCl (Zofran Inj) 4 mg Q6H PRN IV NAUSEA AND/OR VOMITING Last administered on 11/14/16 15:10; Admin Dose 4 MG; Start 11/14/16 at 06:00 Insulin Glargine (Lantus) 18 unit DAILY@20 SC Last administered on 11/18/16 20 :32; Admin Dose 18 UNIT; Start 11/16/16 at 20:00 Aspirin (Halfprin) 81 mg DAILY PO Last administered on 11/19/16 09:36; Admin Dose 81 MG; Start 11/16/16 at 16:00 Amiodarone HCl (Cordarone) 200 mg BID PO Last administered on 11/18/16 20:18; Admin Dose 200 MG; Start 11/16/16 at 21:00 Metoprolol Tartrate (Lopressor) 12.5 mg BID PO Last administered on 11/18/16 20:19; Admin Dose 12.5 MG; Start 11/18/16 at 21:00 CARLA PEACOCK Nov 19, 2016 13:01 CARLA PEACOCK Nov 19, 2016 13:01
--- NOTE | 2016-11-19 18:49 | CONS ---
Date/Time of Note Date/Time of Note DATE: 11/19/16 TIME: 18:47 Assessment/Plan Assessment/Plan Additional Assessment/Plan Paroxysmal atrial fibrillation with rapid ventricular rates, currently sinus rhythm Hemodialysis, end-stage renal disease Hypertension Anemia Preserved ejection fraction -Patient remains in sinus rhythm, continue amiodarone at the current time, continue beta-erin as heart rate and blood pressure permits. Fluid management via hemodialysis as per our nephrology colleagues. Consultation Date/Type/Reason Admit Date/Time Nov 13, 2016 at 19:02 Type of Consultation: cv 24 HR Interval Summary Free Text/Dictation Patient denies palpitations, shortness of breath or chest pain Exam/Review of Systems Vital Signs Vitals Vital Signs Date Time Temp Pulse Resp B/P Pulse Ox O2 Delivery O2 Flow Rate FiO2 11/19/16 16:16 74 11/19/16 15:31 98.8 19 116/58 97 Intake and Output 11/18/16 11/18/16 11/19/16 15:00 23:00 07:00 Intake Total 700 ml 240 ml Balance 700 ml 240 ml Exam No apparent distress, sitting in chair Constitutional: alert, oriented Head: normocephalic Respiratory: other (Coarse breath sounds bilaterally, no wheezing) Cardiovascular: other (S1-S2 heard), regular rate and rhythm Gastrointestinal: bowel sounds, non-tender, soft Extremities: edema Results Result Diagram: 11/18/16 0554 11/18/16 0554 Results 24 hrs Laboratory Tests Test 11/18/16 20:20 11/19/16 08:02 11/19/16 12:48 11/19/16 18:22 Bedside Glucose 127 96 172 176 Medications Medications Current Medications Benazepril HCl (Lotensin) 40 mg DAILY PO Last administered on 11/18/16 08:37; Admin Dose 40 MG; Start 11/14/16 at 09:00 Folic Acid (Folic Acid) 1 mg DAILY PO Last administered on 11/19/16 08:04; Admin Dose 1 MG; Start 11/14/16 at 09:00 Gabapentin (Neurontin) 100 mg TID PO Last administered on 11/19/16 12:49; Admin Dose 100 MG; Start 11/14/16 at 09:00 Nifedipine (Procardia Xl) 30 mg QAM PO Last administered on 11/18/16 08:37; Admin Dose 30 MG; Start 11/14/16 at 09:00 Pentoxifylline (Trental) 400 mg DAILY PO Last administered on 11/19/16 09:36; Admin Dose 400 MG; Start 11/14/16 at 09:00 Zinc Sulfate (Zinc Sulfate) 220 mg TID PO Last administered on 11/19/16 12:50 ; Admin Dose 220 MG; Start 11/14/16 at 09:00 Nifedipine (Procardia Xl) 60 mg QPM PO Last administered on 11/18/16 20:18; Admin Dose 60 MG; Start 11/13/16 at 23:40 Hydralazine HCl (Apresoline) 20 mg Q6H PRN IV ELEVATED SYSTOLIC BP Last administered on 11/13/16 23:49; Admin Dose 20 MG; Start 11/13/16 at 23:30 Acetaminophen (Tylenol Tab) 650 mg Q4H PRN PO PAIN AND OR ELEVATED TEMP; Start 11/13/16 at 23:30 Diagnostic Test (Pha) (Accu-Chek) 1 ea 02 XX ; Start 11/14/16 at 02:00 Miscellaneous Information 1 ea NOTE XX ; Start 11/13/16 at 23:45 Glucose (Glutose) 15 gm Q15M PRN PO DECREASED GLUCOSE; Start 11/13/16 at 23:45 Glucose (Glutose) 22.5 gm Q15M PRN PO DECREASED GLUCOSE; Start 11/13/16 at 23: 45 Dextrose (D50w Syringe) 25 ml Q15M PRN IV DECREASED GLUCOSE; Start 11/13/16 at 23:45 Dextrose (D50w Syringe) 50 ml Q15M PRN IV DECREASED GLUCOSE; Start 11/13/16 at 23:45 Glucagon (Glucagen) 1 mg Q15M PRN IM DECREASED GLUCOSE; Start 11/13/16 at 23:45 Glucose (Glutose) 15 gm Q15M PRN BUCCAL DECREASED GLUCOSE; Start 11/13/16 at 23 :45 Ondansetron HCl (Zofran Inj) 4 mg Q6H PRN IV NAUSEA AND/OR VOMITING Last administered on 11/14/16 15:10; Admin Dose 4 MG; Start 11/14/16 at 06:00 Insulin Glargine (Lantus) 18 unit DAILY@20 SC Last administered on 11/18/16 20 :32; Admin Dose 18 UNIT; Start 11/16/16 at 20:00 Aspirin (Halfprin) 81 mg DAILY PO Last administered on 11/19/16 09:36; Admin Dose 81 MG; Start 11/16/16 at 16:00 Amiodarone HCl (Cordarone) 200 mg BID PO Last administered on 11/18/16 20:18; Admin Dose 200 MG; Start 11/16/16 at 21:00 Metoprolol Tartrate (Lopressor) 12.5 mg BID PO Last administered on 11/18/16 20:19; Admin Dose 12.5 MG; Start 11/18/16 at 21:00 Filipe Silveira DO Nov 19, 2016 18:49
[2016-11-19] MEDS: NIFEdipine (XL) 60 MG TAB PO SCH (22:56)
[2016-11-19] MEDS: INSULIN GLARGINE [LANtus] 3 ML PEN SC SCH (23:01)
[2016-11-19] MEDS: ACCU-CHEK XX SCH (23:01)
[2016-11-20] VITALS (12 sets, daily range): BP systolic 107–152; BP diastolic 52–82; PULSE 66–80; RESP 16–20
[2016-11-20] MEDS: LEVOTHYROXINE 125 MCG TAB PO SCH (06:08)
[2016-11-20] MEDS: BUMETANIDE 1 MG TAB PO SCH ×2 (06:08→17:14)
[2016-11-20] MEDS: CALCIUM ACETATE 667 MG CAP PO SCH ×3 (07:48→17:15)
[2016-11-20] MEDS: INSULIN ASPART [NOVOLOG] 3 ML PEN SC SCH ×7 (07:55→20:50)
[2016-11-20] MEDS: AMIODARONE 200 MG TAB PO SCH ×2 (08:13→20:44)
[2016-11-20] MEDS: FOLIC ACID 1 MG TAB PO SCH (08:13)
[2016-11-20] MEDS: BENAZEPRIL 40 MG TAB PO SCH (08:14)
[2016-11-20] MEDS: GABAPENTIN 100 MG CAP PO SCH ×3 (08:14→20:41)
[2016-11-20] MEDS: METOPROLOL 25 MG TAB PO SCH ×2 (08:14→20:42)
[2016-11-20] MEDS: ASPIRIN (EC) 81 MG TAB PO SCH (08:14)
[2016-11-20] MEDS: ZINC SULFATE 220 MG CAP PO SCH ×3 (08:15→20:42)
[2016-11-20] MEDS: NIFEdipine (XL) 30 MG TAB PO SCH (08:15)
[2016-11-20 08:30] LABS: ADD SCAN DIFF NO
[2016-11-20 08:36] LABS: BASOPHILS % 0.4 % (0.0-2.0); EOSINOPHILS # 0.4 10^3/ul (0.0-0.5); EOSINOPHILS % 5.7 % (0.0-7.0); HEMATOCRIT 29.4 % (37.0-47.0); HEMOGLOBIN 9.4 g/dl (12.0-16.0); MEAN CORPUSCULAR HEMOGLOBIN 30.5 pg (29.0-33.0); MEAN CORPUSCULAR VOLUME 95.5 fl (82.0-101.0); MONOCYTE # 0.9 10^3/ul (0.3-0.9); MONOCYTES % 12.9 % (0.0-11.0); NEUTROPHIL # 4.6 10^3/ul (1.6-7.5); NEUTROPHILS % 66.6 % (39.0-77.0); PLATELET COUNT 157 10^3/UL (140-415); RED BLOOD COUNT 3.08 10^6/ul (4.20-5.40); RED CELL DISTRIBUTION WIDTH 15.9 % (11.5-14.5); WHITE BLOOD COUNT 6.8 10^3/ul (4.8-10.8)
--- NOTE | 2016-11-20 08:40 | PN ---
Date/Time of Note Date/Time of Note DATE: 11/20/16 TIME: 08:38 Assessment/Plan Lines/Catheters IV [facility] Type (from [facility]): [place] Urinary Cath still in place: No Assessment/Plan Chief Complaint/Hosp Course 1. End-stage renal disease. The patient is on dialysis Saturday, Saturday, Saturday. Dialysis tomorrow 2. Access. The patient has a Perm-A-Cath placed 3. Hyperkalemia improved 5. Hypertension. Continue current blood pressure regime 6. Anemia of chronic disease. Continue to monitor hemoglobin and hematocrit levels. Continue Epogen. 7. Mineral bone disorder. Continue to monitor calcium and phosphate levels. Continue phosphorus binders. 8. Diabetes. Continue Accu-Cheks and insulin sliding scale. 9. Atrial fibrillation, rate controlled. Continue current medical management. 10. Hyponatremia -Dialysis on 140 sodium bath, limit free water Problems: Subjective 24 Hr Interval Summary Free Text/Dictation Patient seen and examined no events overnight patient hemodialysis yesterday Exam/Review of Systems Vital Signs Vitals Vital Signs Date Time Temp Pulse Resp B/P Pulse Ox O2 Delivery O2 Flow Rate FiO2 11/20/16 08:35 67 11/20/16 06:50 98.7 18 116/55 95 11/20/16 00:01 Room Air Intake and Output 11/19/16 11/19/16 11/20/16 15:00 23:00 07:00 Intake Total 860 ml 480 ml Output Total 3500 ml Balance -2640 ml 480 ml Exam HEENT: Head is normocephalic. NECK: Supple. HEART: Regular rate LUNGS: Show diminished breath sounds at base. ABDOMEN: Soft, nontender to palpation without rebound or guarding. EXTREMITIES: Negative for clubbing, cyanosis. DERMATOLOGIC: No rashes. MUSCULOSKELETAL: No joint effusions, NEUROLOGIC: No change in exam. Results Result Diagram: 11/18/16 0554 11/18/16 0554 Results 24 hrs Laboratory Tests Test 11/19/16 12:48 11/19/16 18:22 11/19/16 22:55 11/20/16 07:47 Bedside Glucose 172 176 98 82 Medications Medications Current Medications Benazepril HCl (Lotensin) 40 mg DAILY PO Last administered on 11/18/16t 08:37; Admin Dose 40 MG; Start 11/14/16 at 09:00 Folic Acid (Folic Acid) 1 mg DAILY PO Last administered on 11/19/16 08:04; Admin Dose 1 MG; Start 11/14/16 at 09:00 Gabapentin (Neurontin) 100 mg TID PO Last administered on 11/19/16 22:56; Admin Dose 100 MG; Start 11/14/16 at 09:00 Nifedipine (Procardia Xl) 30 mg QAM PO Last administered on 11/18/16 08:37; Admin Dose 30 MG; Start 11/14/16 at 09:00 Pentoxifylline (Trental) 400 mg DAILY PO Last administered on 11/19/16 09:36; Admin Dose 400 MG; Start 11/14/16 at 09:00 Zinc Sulfate (Zinc Sulfate) 220 mg TID PO Last administered on 11/19/16 22:56 ; Admin Dose 220 MG; Start 11/14/16 at 09:00 Nifedipine (Procardia Xl) 60 mg QPM PO Last administered on 11/19/16 22:56; Admin Dose 60 MG; Start 11/13/16 at 23:40 Hydralazine HCl (Apresoline) 20 mg Q6H PRN IV ELEVATED SYSTOLIC BP Last administered on 11/13/16 23:49; Admin Dose 20 MG; Start 11/13/16 at 23:30 Acetaminophen (Tylenol Tab) 650 mg Q4H PRN PO PAIN AND OR ELEVATED TEMP; Start 11/13/16 at 23:30 Diagnostic Test (Pha) (Accu-Chek) 1 ea 02 XX ; Start 11/14/16 at 02:00 Miscellaneous Information 1 ea NOTE XX ; Start 11/13/16 at 23:45 Glucose (Glutose) 15 gm Q15M PRN PO DECREASED GLUCOSE; Start 11/13/16 at 23:45 Glucose (Glutose) 22.5 gm Q15M PRN PO DECREASED GLUCOSE; Start 11/13/16 at 23: 45 Dextrose (D50w Syringe) 25 ml Q15M PRN IV DECREASED GLUCOSE; Start 11/13/16 at 23:45 Dextrose (D50w Syringe) 50 ml Q15M PRN IV DECREASED GLUCOSE; Start 11/13/16 at 23:45 Glucagon (Glucagen) 1 mg Q15M PRN IM DECREASED GLUCOSE; Start 11/13/16 at 23:45 Glucose (Glutose) 15 gm Q15M PRN BUCCAL DECREASED GLUCOSE; Start 11/13/16 at 23 :45 Ondansetron HCl (Zofran Inj) 4 mg Q6H PRN IV NAUSEA AND/OR VOMITING Last administered on 11/14/16 15:10; Admin Dose 4 MG; Start 11/14/16 at 06:00 Insulin Glargine (Lantus) 18 unit DAILY@20 SC Last administered on 11/19/16 23 :01; Admin Dose 18 UNIT; Start 11/16/16 at 20:00 Aspirin (Halfprin) 81 mg DAILY PO Last administered on 11/19/16 09:36; Admin Dose 81 MG; Start 11/16/16 at 16:00 Amiodarone HCl (Cordarone) 200 mg BID PO Last administered on 11/19/16 22:55; Admin Dose 200 MG; Start 11/16/16 at 21:00 Metoprolol Tartrate (Lopressor) 12.5 mg BID PO Last administered on 11/19/16 22:56; Admin Dose 12.5 MG; Start 11/18/16 at 21:00 YL LOPEZ DO Nov 20, 2016 08:40
[2016-11-20] MEDS: PENTOXIFYLLINE (SR) 400 MG TAB PO SCH (09:00)
[2016-11-20 09:01] LABS: CALCIUM 8.1 mg/dl (8.4-10.2); CREATININE 5.59 mg/dl (0.44-1.00); PHOSPHORUS 6.6 mg/dl (2.5-4.9); POTASSIUM 5.3 mmol/L (3.5-5.1)
--- NOTE | 2016-11-20 13:21 | CONS ---
Date/Time of Note Date/Time of Note DATE: 11/20/16 TIME: 13:20 Assessment/Plan Assessment/Plan Additional Assessment/Plan Paroxysmal atrial fibrillation with rapid ventricular rates, currently sinus rhythm Hemodialysis, end-stage renal disease Hypertension Anemia Preserved ejection fraction -Patient remains in sinus rhythm, continue amiodarone at the current time and decreased dose to daily upon discharge, continue beta-erin as heart rate and blood pressure permits. Fluid management via hemodialysis as per our nephrology colleagues. Consultation Date/Type/Reason Admit Date/Time Nov 13, 2016 at 19:02 Type of Consultation: cv 24 HR Interval Summary Free Text/Dictation Denies shortness of breath, palpitations, feeling better Exam/Review of Systems Vital Signs Vitals Vital Signs Date Time Temp Pulse Resp B/P Pulse Ox O2 Delivery O2 Flow Rate FiO2 11/20/16 12:11 77 11/20/16 11:10 98.4 20 145/67 97 11/20/16 00:01 Room Air Intake and Output 11/19/16 11/19/16 11/20/16 15:00 23:00 07:00 Intake Total 860 ml 480 ml Output Total 3500 ml Balance -2640 ml 480 ml Exam No apparent distress Constitutional: alert, obese, oriented Head: normocephalic Respiratory: other (Coarse breath sounds bilaterally, no wheezing) Cardiovascular: other (S1-S2), regular rate and rhythm Gastrointestinal: bowel sounds, non-tender, soft Extremities: edema Results Result Diagram: 11/20/16 0748 11/20/16 0748 Results 24 hrs Laboratory Tests Test 11/19/16 18:22 11/19/16 22:55 11/20/16 07:47 11/20/16 07:48 Bedside Glucose 176 98 82 White Blood Count 6.8 Red Blood Count 3.08 L Hemoglobin 9.4 L Hematocrit 29.4 L Mean Corpuscular Volume 95.5 Mean Corpuscular Hemoglobin 30.5 Mean Corpuscular Hemoglobin Concent 32.0 Red Cell Distribution Width 15.9 H Platelet Count 157 # Mean Platelet Volume 12.0 H Neutrophils % 66.6 Lymphocytes % 14.0 L Monocytes % 12.9 H Eosinophils % 5.7 Basophils % 0.4 Nucleated Red Blood Cells % 0.0 Neutrophils # 4.6 Lymphocytes # 1.0 Monocytes # 0.9 Eosinophils # 0.4 Basophils # 0.0 Nucleated Red Blood Cells # 0.0 Sodium Level 138 Potassium Level 5.3 H Chloride Level 94 L Carbon Dioxide Level 29 Anion Gap 20 H Blood Urea Nitrogen 45 H Creatinine 5.59 H Glucose Level 72 Calcium Level 8.1 L Phosphorus Level 6.6 H Magnesium Level 2.0 Test 11/20/16 11:51 Bedside Glucose 105 Medications Medications Current Medications Benazepril HCl (Lotensin) 40 mg DAILY PO Last administered on 11/20/16 08:14; Admin Dose 40 MG; Start 11/14/16 at 09:00 Folic Acid (Folic Acid) 1 mg DAILY PO Last administered on 11/20/16 08:13; Admin Dose 1 MG; Start 11/14/16 at 09:00 Gabapentin (Neurontin) 100 mg TID PO Last administered on 11/20/16 12:42; Admin Dose 100 MG; Start 11/14/16 at 09:00 Nifedipine (Procardia Xl) 30 mg QAM PO Last administered on 11/20/16 08:15; Admin Dose 30 MG; Start 11/14/16 at 09:00 Pentoxifylline (Trental) 400 mg DAILY PO Last administered on 11/19/16 09:36; Admin Dose 400 MG; Start 11/14/16 at 09:00 Zinc Sulfate (Zinc Sulfate) 220 mg TID PO Last administered on 11/20/16 12:42 ; Admin Dose 220 MG; Start 11/14/16 at 09:00 Nifedipine (Procardia Xl) 60 mg QPM PO Last administered on 11/19/16 22:56; Admin Dose 60 MG; Start 11/13/16 at 23:40 Hydralazine HCl (Apresoline) 20 mg Q6H PRN IV ELEVATED SYSTOLIC BP Last administered on 11/13/16 23:49; Admin Dose 20 MG; Start 11/13/16 at 23:30 Acetaminophen (Tylenol Tab) 650 mg Q4H PRN PO PAIN AND OR ELEVATED TEMP; Start 11/13/16 at 23:30 Diagnostic Test (Pha) (Accu-Chek) 1 ea 02 XX ; Start 11/14/16 at 02:00 Miscellaneous Information 1 ea NOTE XX ; Start 11/13/16 at 23:45 Glucose (Glutose) 15 gm Q15M PRN PO DECREASED GLUCOSE; Start 11/13/16 at 23:45 Glucose (Glutose) 22.5 gm Q15M PRN PO DECREASED GLUCOSE; Start 11/13/16 at 23: 45 Dextrose (D50w Syringe) 25 ml Q15M PRN IV DECREASED GLUCOSE; Start 11/13/16 at 23:45 Dextrose (D50w Syringe) 50 ml Q15M PRN IV DECREASED GLUCOSE; Start 11/13/16 at 23:45 Glucagon (Glucagen) 1 mg Q15M PRN IM DECREASED GLUCOSE; Start 11/13/16 at 23:45 Glucose (Glutose) 15 gm Q15M PRN BUCCAL DECREASED GLUCOSE; Start 11/13/16 at 23 :45 Ondansetron HCl (Zofran Inj) 4 mg Q6H PRN IV NAUSEA AND/OR VOMITING Last administered on 11/14/16 15:10; Admin Dose 4 MG; Start 11/14/16 at 06:00 Insulin Glargine (Lantus) 18 unit DAILY@20 SC Last administered on 11/19/16 23 :01; Admin Dose 18 UNIT; Start 11/16/16 at 20:00 Aspirin (Halfprin) 81 mg DAILY PO Last administered on 11/20/16 08:14; Admin Dose 81 MG; Start 11/16/16 at 16:00 Amiodarone HCl (Cordarone) 200 mg BID PO Last administered on 11/20/16 08:13; Admin Dose 200 MG; Start 11/16/16 at 21:00 Metoprolol Tartrate (Lopressor) 12.5 mg BID PO Last administered on 11/20/16 08:14; Admin Dose 12.5 MG; Start 11/18/16 at 21:00 Filipe Silveira DO Nov 20, 2016 13:21
--- NOTE | 2016-11-20 14:53 | PN ---
Date/Time of Note Date/Time of Note DATE: 11/20/16 TIME: 14:52 Assessment/Plan VTE Prophylaxis VTE Prophylaxis Intervention: SCD's Lines/Catheters IV [facility] junior Urinary Cath still in place: No Assessment/Plan Chief Complaint/Hosp Course Patient remains in sinus rhythm, continue telemetry monitoring, potassium is 5.3 , pending hemodialysis tomorrow, anticipate discharge home tomorrow after dialysis if no acute issues. Assessment/Plan -Atrial fibrillation with rapid ventricular response during hemodialysis on 11/16 , currently in sinus rhythm. Continue amiodarone and metoprolol. Dr. Silveira is following patient in cardiology consultation. -Hypertensive urgency on admission, continue benazepril and Procardia. -Left Junior catheter malfunction, status post catheter exchange by Dr. Balbuena. -End-stage renal disease, Dr. Ndiaye is following in nephrology consultation. -Diabetes mellitus, hemoglobin A1c 7.6, continue Lantus and NovoLog. -S/p left radiocephalic arteriovenous fistula by Dr Balbuena on 10/12/16. -Hypothyroidism, continue levothyroxine. Further recommendations based on clinical course. Plan of care discussed with Dr. Alexander. Problems: Exam/Review of Systems Vital Signs Vitals Vital Signs Date Time Temp Pulse Resp B/P Pulse Ox O2 Delivery O2 Flow Rate FiO2 11/20/16 12:11 77 11/20/16 11:10 98.4 20 145/67 97 11/20/16 00:01 Room Air Intake and Output 11/19/16 11/19/16 11/20/16 15:00 23:00 07:00 Intake Total 860 ml 480 ml Output Total 3500 ml Balance -2640 ml 480 ml Exam Constitutional: alert, oriented Respiratory: normal air movement Cardiovascular: nl pulses, regular rate and rhythm Gastrointestinal: non-tender, soft Musculoskeletal: nl extremities to inspection Extremities: normal pulses Neurological: nl mental status Results Result Diagram: 11/20/16 0748 11/20/16 0748 Results 24 hrs Laboratory Tests Test 11/19/16 18:22 11/19/16 22:55 11/20/16 07:47 11/20/16 07:48 Bedside Glucose 176 98 82 White Blood Count 6.8 Red Blood Count 3.08 L Hemoglobin 9.4 L Hematocrit 29.4 L Mean Corpuscular Volume 95.5 Mean Corpuscular Hemoglobin 30.5 Mean Corpuscular Hemoglobin Concent 32.0 Red Cell Distribution Width 15.9 H Platelet Count 157 # Mean Platelet Volume 12.0 H Neutrophils % 66.6 Lymphocytes % 14.0 L Monocytes % 12.9 H Eosinophils % 5.7 Basophils % 0.4 Nucleated Red Blood Cells % 0.0 Neutrophils # 4.6 Lymphocytes # 1.0 Monocytes # 0.9 Eosinophils # 0.4 Basophils # 0.0 Nucleated Red Blood Cells # 0.0 Sodium Level 138 Potassium Level 5.3 H Chloride Level 94 L Carbon Dioxide Level 29 Anion Gap 20 H Blood Urea Nitrogen 45 H Creatinine 5.59 H Glucose Level 72 Calcium Level 8.1 L Phosphorus Level 6.6 H Magnesium Level 2.0 Test 11/20/16 11:51 Bedside Glucose 105 Medications Medications Current Medications Benazepril HCl (Lotensin) 40 mg DAILY PO Last administered on 11/20/16 08:14; Admin Dose 40 MG; Start 11/14/16 at 09:00 Folic Acid (Folic Acid) 1 mg DAILY PO Last administered on 11/20/16 08:13; Admin Dose 1 MG; Start 11/14/16 at 09:00 Gabapentin (Neurontin) 100 mg TID PO Last administered on 11/20/16 12:42; Admin Dose 100 MG; Start 11/14/16 at 09:00 Nifedipine (Procardia Xl) 30 mg QAM PO Last administered on 11/20/16 08:15; Admin Dose 30 MG; Start 11/14/16 at 09:00 Pentoxifylline (Trental) 400 mg DAILY PO Last administered on 11/19/16 09:36; Admin Dose 400 MG; Start 11/14/16 at 09:00 Zinc Sulfate (Zinc Sulfate) 220 mg TID PO Last administered on 11/20/16 12:42 ; Admin Dose 220 MG; Start 11/14/16 at 09:00 Nifedipine (Procardia Xl) 60 mg QPM PO Last administered on 11/19/16 22:56; Admin Dose 60 MG; Start 11/13/16 at 23:40 Hydralazine HCl (Apresoline) 20 mg Q6H PRN IV ELEVATED SYSTOLIC BP Last administered on 11/13/16 23:49; Admin Dose 20 MG; Start 11/13/16 at 23:30 Acetaminophen (Tylenol Tab) 650 mg Q4H PRN PO PAIN AND OR ELEVATED TEMP; Start 11/13/16 at 23:30 Diagnostic Test (Pha) (Accu-Chek) 1 ea 02 XX ; Start 11/14/16 at 02:00 Miscellaneous Information 1 ea NOTE XX ; Start 11/13/16 at 23:45 Glucose (Glutose) 15 gm Q15M PRN PO DECREASED GLUCOSE; Start 11/13/16 at 23:45 Glucose (Glutose) 22.5 gm Q15M PRN PO DECREASED GLUCOSE; Start 11/13/16 at 23: 45 Dextrose (D50w Syringe) 25 ml Q15M PRN IV DECREASED GLUCOSE; Start 11/13/16 at 23:45 Dextrose (D50w Syringe) 50 ml Q15M PRN IV DECREASED GLUCOSE; Start 11/13/16 at 23:45 Glucagon (Glucagen) 1 mg Q15M PRN IM DECREASED GLUCOSE; Start 11/13/16 at 23:45 Glucose (Glutose) 15 gm Q15M PRN BUCCAL DECREASED GLUCOSE; Start 11/13/16 at 23 :45 Ondansetron HCl (Zofran Inj) 4 mg Q6H PRN IV NAUSEA AND/OR VOMITING Last administered on 11/14/16 15:10; Admin Dose 4 MG; Start 11/14/16 at 06:00 Insulin Glargine (Lantus) 18 unit DAILY@20 SC Last administered on 11/19/16 23 :01; Admin Dose 18 UNIT; Start 11/16/16 at 20:00 Aspirin (Halfprin) 81 mg DAILY PO Last administered on 11/20/16 08:14; Admin Dose 81 MG; Start 11/16/16 at 16:00 Amiodarone HCl (Cordarone) 200 mg BID PO Last administered on 11/20/16 08:13; Admin Dose 200 MG; Start 11/16/16 at 21:00 Metoprolol Tartrate (Lopressor) 12.5 mg BID PO Last administered on 11/20/16 08:14; Admin Dose 12.5 MG; Start 11/18/16 at 21:00 CARLA PEACOCK Nov 20, 2016 14:53
[2016-11-20] MEDS: NIFEdipine (XL) 60 MG TAB PO SCH (20:43)
[2016-11-20] MEDS: INSULIN GLARGINE [LANtus] 3 ML PEN SC SCH (20:52)
[2016-11-21] VITALS (20 sets, daily range): BP systolic 109–164; BP diastolic 53–84; PULSE 52–78; RESP 18–20
[2016-11-21] MEDS: ACCU-CHEK XX SCH (02:00)
[2016-11-21] MEDS: ACETAMINOPHEN 325 MG TAB PO PRN ×2 (03:36→12:17)
[2016-11-21] MEDS ORDERED: MECLIZINE 25 MG TAB PO PRN (05:30)
[2016-11-21] MEDS: BUMETANIDE 1 MG TAB PO SCH ×2 (06:00→17:44)
[2016-11-21] MEDS: LEVOTHYROXINE 125 MCG TAB PO SCH (06:09)
[2016-11-21] MEDS: INSULIN ASPART [NOVOLOG] 3 ML PEN SC SCH ×7 (07:55→21:00)
[2016-11-21] MEDS: CALCIUM ACETATE 667 MG CAP PO SCH ×3 (08:31→17:44)
[2016-11-21] MEDS: AMIODARONE 200 MG TAB PO SCH ×2 (08:32→22:41)
[2016-11-21] MEDS: FOLIC ACID 1 MG TAB PO SCH (08:32)
[2016-11-21] MEDS: METOPROLOL 25 MG TAB PO SCH ×2 (08:32→22:40)
[2016-11-21] MEDS: ASPIRIN (EC) 81 MG TAB PO SCH (08:32)
[2016-11-21] MEDS: GABAPENTIN 100 MG CAP PO SCH ×3 (08:33→22:41)
[2016-11-21] MEDS: BENAZEPRIL 40 MG TAB PO SCH (08:33)
[2016-11-21] MEDS: NIFEdipine (XL) 30 MG TAB PO SCH (08:33)
[2016-11-21] MEDS: ZINC SULFATE 220 MG CAP PO SCH ×3 (08:34→22:40)
[2016-11-21] MEDS: PENTOXIFYLLINE (SR) 400 MG TAB PO SCH (08:34)
--- NOTE | 2016-11-21 12:07 | CONS ---
Date/Time of Note Date/Time of Note DATE: 11/21/16 TIME: 12:05 Assessment/Plan Assessment/Plan Additional Assessment/Plan Paroxysmal atrial fibrillation with rapid ventricular rates, currently sinus rhythm Hemodialysis, end-stage renal disease Hypertension Anemia Preserved ejection fraction -Patient remains in sinus rhythm, continue amiodarone at the current time and decreased dose to daily upon discharge, continue beta-erin as heart rate and blood pressure permits. Patient with worsening anemia on this hospitalization and one incident of atrial fibrillation happened during dialysis. Would hold off on initiation of anticoagulation at the current time, continue aspirin if no contraindication. Fluid management via hemodialysis as per our nephrology colleagues. DC planning Consultation Date/Type/Reason Admit Date/Time Nov 13, 2016 at 19:02 Type of Consultation: cv 24 HR Interval Summary Free Text/Dictation Denies shortness of breath or palpitations Exam/Review of Systems Vital Signs Vitals Vital Signs Date Time Temp Pulse Resp B/P Pulse Ox O2 Delivery O2 Flow Rate FiO2 11/21/16 11:28 100.1 67 18 132/53 95 11/20/16 00:01 Room Air Intake and Output 11/20/16 11/20/16 11/21/16 15:00 23:00 07:00 Intake Total 840 ml 500 ml Balance 840 ml 500 ml Exam No apparent distress, following commands Constitutional: alert, oriented Head: normocephalic Respiratory: other (Coarse breath sounds bilaterally, no wheezing) Cardiovascular: other (S1-S2 heard), regular rate and rhythm Gastrointestinal: bowel sounds, non-tender, soft Extremities: edema Results Result Diagram: 11/20/16 0748 11/20/16 0748 Results 24 hrs Laboratory Tests Test 11/20/16 17:13 11/20/16 20:48 11/21/16 08:29 Bedside Glucose 167 131 99 Medications Medications Current Medications Benazepril HCl (Lotensin) 40 mg DAILY PO Last administered on 11/20/16 08:14; Admin Dose 40 MG; Start 11/14/16 at 09:00 Folic Acid (Folic Acid) 1 mg DAILY PO Last administered on 11/21/16 08:32; Admin Dose 1 MG; Start 11/14/16 at 09:00 Gabapentin (Neurontin) 100 mg TID PO Last administered on 11/21/16 08:33; Admin Dose 100 MG; Start 11/14/16 at 09:00 Nifedipine (Procardia Xl) 30 mg QAM PO Last administered on 11/20/16 08:15; Admin Dose 30 MG; Start 11/14/16 at 09:00 Pentoxifylline (Trental) 400 mg DAILY PO Last administered on 11/21/16 08:34; Admin Dose 400 MG; Start 11/14/16 at 09:00 Zinc Sulfate (Zinc Sulfate) 220 mg TID PO Last administered on 11/21/16 08:34 ; Admin Dose 220 MG; Start 11/14/16 at 09:00 Nifedipine (Procardia Xl) 60 mg QPM PO Last administered on 11/20/16 20:43; Admin Dose 60 MG; Start 11/13/16 at 23:40 Hydralazine HCl (Apresoline) 20 mg Q6H PRN IV ELEVATED SYSTOLIC BP Last administered on 11/13/16 23:49; Admin Dose 20 MG; Start 11/13/16 at 23:30 Acetaminophen (Tylenol Tab) 650 mg Q4H PRN PO PAIN AND OR ELEVATED TEMP Last administered on 11/21/16 03:36; Admin Dose 650 MG; Start 11/13/16 at 23:30 Diagnostic Test (Pha) (Accu-Chek) 1 ea 02 XX ; Start 11/14/16 at 02:00 Miscellaneous Information 1 ea NOTE XX ; Start 11/13/16 at 23:45 Glucose (Glutose) 15 gm Q15M PRN PO DECREASED GLUCOSE; Start 11/13/16 at 23:45 Glucose (Glutose) 22.5 gm Q15M PRN PO DECREASED GLUCOSE; Start 11/13/16 at 23: 45 Dextrose (D50w Syringe) 25 ml Q15M PRN IV DECREASED GLUCOSE; Start 11/13/16 at 23:45 Dextrose (D50w Syringe) 50 ml Q15M PRN IV DECREASED GLUCOSE; Start 11/13/16 at 23:45 Glucagon (Glucagen) 1 mg Q15M PRN IM DECREASED GLUCOSE; Start 11/13/16 at 23:45 Glucose (Glutose) 15 gm Q15M PRN BUCCAL DECREASED GLUCOSE; Start 11/13/16 at 23 :45 Ondansetron HCl (Zofran Inj) 4 mg Q6H PRN IV NAUSEA AND/OR VOMITING Last administered on 11/14/16 15:10; Admin Dose 4 MG; Start 11/14/16 at 06:00 Insulin Glargine (Lantus) 18 unit DAILY@20 SC Last administered on 11/20/16 20 :52; Admin Dose 18 UNIT; Start 11/16/16 at 20:00 Aspirin (Halfprin) 81 mg DAILY PO Last administered on 11/21/16 08:32; Admin Dose 81 MG; Start 11/16/16 at 16:00 Amiodarone HCl (Cordarone) 200 mg BID PO Last administered on 11/21/16 08:32; Admin Dose 200 MG; Start 11/16/16 at 21:00 Metoprolol Tartrate (Lopressor) 12.5 mg BID PO Last administered on 11/20/16 20:42; Admin Dose 12.5 MG; Start 11/18/16 at 21:00 Meclizine HCl (Antivert) 25 mg Q6H PRN PO Dizziness Last administered on 05:11; Admin Dose 25 MG; Start 11/21/16 at 05:30 Filipe Silveira DO Nov 21, 2016 12:07
--- NOTE | 2016-11-21 15:07 | PN ---
Date/Time of Note Date/Time of Note DATE: 11/21/16 TIME: 15:01 Assessment/Plan VTE Prophylaxis VTE Prophylaxis Intervention: SCD's Lines/Catheters IV [facility]from [facility] PERMACATH Urinary Cath still in place: No Assessment/Plan Chief Complaint/Hosp Course Patient remains in sinus rhythm, pending dialysis today, patient's complains of dizziness, stated that she was not able to sleep during the night due to dizziness. Will start Antivert as needed. patient had temperature 100.1. Will check chest x-ray. RN instructed to obtain urine and blood cultures if patient spiked fever. We will continue to monitor for 1 more day, if patient does not complain of dizziness he can be discharged tomorrow. This was discussed with patient using bag sorter. Assessment/Plan -Atrial fibrillation with rapid ventricular response during hemodialysis on 11/16 , currently in sinus rhythm. Continue amiodarone and metoprolol. Dr. Silveira is following patient in cardiology consultation. -Hypertensive urgency on admission, continue benazepril and Procardia. -Left [place] catheter malfunction, status post catheter exchange by Dr. Balbuena. -End-stage renal disease, Dr. Ndiaye is following in nephrology consultation. -Diabetes mellitus, hemoglobin A1c 7.6, continue Lantus and NovoLog. -S/p left radiocephalic arteriovenous fistula by Dr Balbuena on 10/12/16. -Hypothyroidism, continue levothyroxine. Further recommendations based on clinical course. Plan of care discussed with Dr. Alexander. Problems: Exam/Review of Systems Vital Signs Vitals Vital Signs Date Time Temp Pulse Resp B/P Pulse Ox O2 Delivery O2 Flow Rate FiO2 11/21/16 14:27 97.9 11/21/16 12:27 66 11/21/16 11:28 18 132/53 95 11/20/16 00:01 Room Air Intake and Output 11/20/16 11/20/16 11/21/16 15:00 23:00 07:00 Intake Total 840 ml 500 ml Balance 840 ml 500 ml Exam Constitutional: alert, oriented Respiratory: normal air movement Cardiovascular: nl pulses, regular rate and rhythm Gastrointestinal: non-tender, soft Musculoskeletal: nl extremities to inspection Extremities: normal pulses Neurological: nl mental status Results Result Diagram: 11/20/16 0748 11/20/16 0748 Results 24 hrs Laboratory Tests Test 11/20/16 17:13 11/20/16 20:48 11/21/16 08:29 11/21/16 12:14 Bedside Glucose 167 131 99 81 Medications Medications Current Medications Benazepril HCl (Lotensin) 40 mg DAILY PO Last administered on 11/20/16 08:14; Admin Dose 40 MG; Start 11/14/16 at 09:00 Folic Acid (Folic Acid) 1 mg DAILY PO Last administered on 11/21/16 08:32; Admin Dose 1 MG; Start 11/14/16 at 09:00 Gabapentin (Neurontin) 100 mg TID PO Last administered on 11/21/16 12:15; Admin Dose 100 MG; Start 11/14/16 at 09:00 Nifedipine (Procardia Xl) 30 mg QAM PO Last administered on 11/20/16 08:15; Admin Dose 30 MG; Start 11/14/16 at 09:00 Pentoxifylline (Trental) 400 mg DAILY PO Last administered on 11/21/16 08:34; Admin Dose 400 MG; Start 11/14/16 at 09:00 Zinc Sulfate (Zinc Sulfate) 220 mg TID PO Last administered on 11/21/16 12:15 ; Admin Dose 220 MG; Start 11/14/16 at 09:00 Nifedipine (Procardia Xl) 60 mg QPM PO Last administered on 11/20/16 20:43; Admin Dose 60 MG; Start 11/13/16 at 23:40 Hydralazine HCl (Apresoline) 20 mg Q6H PRN IV ELEVATED SYSTOLIC BP Last administered on 11/13/16 23:49; Admin Dose 20 MG; Start 11/13/16 at 23:30 Acetaminophen (Tylenol Tab) 650 mg Q4H PRN PO PAIN AND OR ELEVATED TEMP Last administered on 11/21/16 12:17; Admin Dose 650 MG; Start 11/13/16 at 23:30 Diagnostic Test (Pha) (Accu-Chek) 1 ea 02 XX ; Start 11/14/16 at 02:00 Miscellaneous Information 1 ea NOTE XX ; Start 11/13/16 at 23:45 Glucose (Glutose) 15 gm Q15M PRN PO DECREASED GLUCOSE; Start 11/13/16 at 23:45 Glucose (Glutose) 22.5 gm Q15M PRN PO DECREASED GLUCOSE; Start 11/13/16 at 23: 45 Dextrose (D50w Syringe) 25 ml Q15M PRN IV DECREASED GLUCOSE; Start 11/13/16 at 23:45 Dextrose (D50w Syringe) 50 ml Q15M PRN IV DECREASED GLUCOSE; Start 11/13/16 at 23:45 Glucagon (Glucagen) 1 mg Q15M PRN IM DECREASED GLUCOSE; Start 11/13/16 at 23:45 Glucose (Glutose) 15 gm Q15M PRN BUCCAL DECREASED GLUCOSE; Start 11/13/16 at 23 :45 Ondansetron HCl (Zofran Inj) 4 mg Q6H PRN IV NAUSEA AND/OR VOMITING Last administered on 11/14/16 15:10; Admin Dose 4 MG; Start 11/14/16 at 06:00 Insulin Glargine (Lantus) 18 unit DAILY@20 SC Last administered on 11/20/16 20 :52; Admin Dose 18 UNIT; Start 11/16/16 at 20:00 Aspirin (Halfprin) 81 mg DAILY PO Last administered on 11/21/16 08:32; Admin Dose 81 MG; Start 11/16/16 at 16:00 Amiodarone HCl (Cordarone) 200 mg BID PO Last administered on 11/21/16 08:32; Admin Dose 200 MG; Start 11/16/16 at 21:00 Metoprolol Tartrate (Lopressor) 12.5 mg BID PO Last administered on 11/20/16 20:42; Admin Dose 12.5 MG; Start 11/18/16 at 21:00 Meclizine HCl (Antivert) 25 mg Q6H PRN PO Dizziness Last administered on 05:11; Admin Dose 25 MG; Start 11/21/16 at 05:30 CARLA PEACOCK Nov 21, 2016 15:07
[2016-11-21] MEDS: NIFEdipine (XL) 60 MG TAB PO SCH (22:41)
[2016-11-21] MEDS: INSULIN GLARGINE [LANtus] 3 ML PEN SC SCH (22:43)
[2016-11-22] VITALS (12 sets, daily range): BP systolic 108–154; BP diastolic 55–72; PULSE 60–81; RESP 17–20
[2016-11-22] MEDS: ACCU-CHEK XX SCH (00:48)
[2016-11-22] MEDS: BUMETANIDE 1 MG TAB PO SCH ×2 (06:01→17:29)
[2016-11-22] MEDS: LEVOTHYROXINE 125 MCG TAB PO SCH (06:01)
[2016-11-22 08:03] LABS: ADD SCAN DIFF NO
[2016-11-22 08:15] LABS: BASOPHILS % 0.5 % (0.0-2.0); EOSINOPHILS # 0.4 10^3/ul (0.0-0.5); EOSINOPHILS % 7.3 % (0.0-7.0); HEMOGLOBIN 9.1 g/dl (12.0-16.0); LYMPHOCYTES # 0.8 10^3/ul (0.8-2.9); LYMPHOCYTES % 13.7 % (15.0-51.0); MEAN CORPUSCULAR HEMOGLOBIN 31.3 pg (29.0-33.0); MEAN CORPUSCULAR HGB CONC 32.5 g/dl (32.0-37.0); MEAN CORPUSCULAR VOLUME 96.2 fl (82.0-101.0); MONOCYTE # 0.9 10^3/ul (0.3-0.9); MONOCYTES % 15.6 % (0.0-11.0); NEUTROPHIL # 3.4 10^3/ul (1.6-7.5); NEUTROPHILS % 61.8 % (39.0-77.0); PLATELET COUNT 190 10^3/UL (140-415); RED BLOOD COUNT 2.91 10^6/ul (4.20-5.40); RED CELL DISTRIBUTION WIDTH 15.4 % (11.5-14.5); WHITE BLOOD COUNT 5.5 10^3/ul (4.8-10.8)
[2016-11-22] MEDS: CALCIUM ACETATE 667 MG CAP PO SCH ×3 (08:25→17:29)
[2016-11-22] MEDS: GABAPENTIN 100 MG CAP PO SCH ×3 (08:26→21:24)
[2016-11-22] MEDS: AMIODARONE 200 MG TAB PO SCH ×2 (08:26→21:24)
[2016-11-22] MEDS: ZINC SULFATE 220 MG CAP PO SCH ×3 (08:27→21:24)
[2016-11-22] MEDS: BENAZEPRIL 40 MG TAB PO SCH (08:27)
[2016-11-22] MEDS: NIFEdipine (XL) 30 MG TAB PO SCH (08:27)
[2016-11-22] MEDS: PENTOXIFYLLINE (SR) 400 MG TAB PO SCH (08:27)
[2016-11-22] MEDS: ASPIRIN (EC) 81 MG TAB PO SCH (08:27)
[2016-11-22] MEDS: FOLIC ACID 1 MG TAB PO SCH (08:27)
[2016-11-22] MEDS: METOPROLOL 25 MG TAB PO SCH ×2 (08:28→21:25)
[2016-11-22] MEDS: INSULIN ASPART [NOVOLOG] 3 ML PEN SC SCH ×7 (08:32→21:00)
--- NOTE | 2016-11-22 08:35 | PN ---
Date/Time of Note Date/Time of Note DATE: 11/22/16 TIME: 08:33 Assessment/Plan Lines/Catheters IV Catheter Type (from [facility]): PERMA CATH Urinary Cath still in place: No Assessment/Plan Chief Complaint/Hosp Course 1. End-stage renal disease. The patient is on dialysis Saturday, Saturday, Saturday. Dialysis tomorrow 2. Access. The patient has a Perm-A-Cath placed 3. Hyperkalemia improved 5. Hypertension. Continue current blood pressure regime 6. Anemia of chronic disease. Continue to monitor hemoglobin and hematocrit levels. Continue Epogen. 7. Mineral bone disorder. Continue to monitor calcium and phosphate levels. Continue phosphorus binders. 8. Diabetes. Continue Accu-Cheks and insulin sliding scale. 9. Atrial fibrillation, rate controlled. Continue current medical management. 10. Hyponatremia -Dialysis on 140 sodium bath, limit free water Problems: Subjective 24 Hr Interval Summary Free Text/Dictation Patient seen and examined no events overnight Exam/Review of Systems Vital Signs Vitals Vital Signs Date Time Temp Pulse Resp B/P Pulse Ox O2 Delivery O2 Flow Rate FiO2 11/22/16 08:15 68 11/22/16 07:24 98.0 18 117/58 98 11/20/16 00:01 Room Air Intake and Output 11/21/16 11/21/16 11/22/16 15:00 23:00 07:00 Intake Total 500 ml 340 ml Output Total 3500 ml Balance -3000 ml 340 ml Exam HEENT: Head is normocephalic. NECK: Supple. HEART: Regular rate LUNGS: Show diminished breath sounds at base. ABDOMEN: Soft, nontender to palpation without rebound or guarding. EXTREMITIES: Negative for clubbing, cyanosis. DERMATOLOGIC: No rashes. MUSCULOSKELETAL: No joint effusions, NEUROLOGIC: No change in exam. Results Result Diagram: 11/22/16 0718 11/20/16 0748 Results 24 hrs Laboratory Tests Test 11/21/16 12:14 11/21/16 17:42 11/21/16 19:47 11/22/16 07:18 Bedside Glucose 81 136 140 White Blood Count 5.5 Red Blood Count 2.91 L Hemoglobin 9.1 L Hematocrit 28.0 L Mean Corpuscular Volume 96.2 Mean Corpuscular Hemoglobin 31.3 Mean Corpuscular Hemoglobin Concent 32.5 Red Cell Distribution Width 15.4 H Platelet Count 190 # Mean Platelet Volume 12.0 H Neutrophils % 61.8 Lymphocytes % 13.7 L Monocytes % 15.6 H Eosinophils % 7.3 H Basophils % 0.5 Nucleated Red Blood Cells % 0.0 Neutrophils # 3.4 Lymphocytes # 0.8 Monocytes # 0.9 Eosinophils # 0.4 Basophils # 0.0 Nucleated Red Blood Cells # 0.0 Test 11/22/16 07:52 Bedside Glucose 185 Medications Medications Current Medications Benazepril HCl (Lotensin) 40 mg DAILY PO Last administered on 11/20/16 08:14; Admin Dose 40 MG; Start 11/14/16 at 09:00 Folic Acid (Folic Acid) 1 mg DAILY PO Last administered on 11/21/16 08:32; Admin Dose 1 MG; Start 11/14/16 at 09:00 Gabapentin (Neurontin) 100 mg TID PO Last administered on 11/21/16 22:41; Admin Dose 100 MG; Start 11/14/16 at 09:00 Nifedipine (Procardia Xl) 30 mg QAM PO Last administered on 11/20/16 08:15; Admin Dose 30 MG; Start 11/14/16 at 09:00 Pentoxifylline (Trental) 400 mg DAILY PO Last administered on 11/21/16 08:34; Admin Dose 400 MG; Start 11/14/16 at 09:00 Zinc Sulfate (Zinc Sulfate) 220 mg TID PO Last administered on 11/21/16 22:40 ; Admin Dose 220 MG; Start 11/14/16 at 09:00 Nifedipine (Procardia Xl) 60 mg QPM PO Last administered on 11/21/16 22:41; Admin Dose 60 MG; Start 11/13/16 at 23:40 Hydralazine HCl (Apresoline) 20 mg Q6H PRN IV ELEVATED SYSTOLIC BP Last administered on 11/13/16 23:49; Admin Dose 20 MG; Start 11/13/16 at 23:30 Acetaminophen (Tylenol Tab) 650 mg Q4H PRN PO PAIN AND OR ELEVATED TEMP Last administered on 11/21/16 12:17; Admin Dose 650 MG; Start 11/13/16 at 23:30 Diagnostic Test (Pha) (Accu-Chek) 1 ea 02 XX ; Start 11/14/16 at 02:00 Miscellaneous Information 1 ea NOTE XX ; Start 11/13/16 at 23:45 Glucose (Glutose) 15 gm Q15M PRN PO DECREASED GLUCOSE; Start 11/13/16 at 23:45 Glucose (Glutose) 22.5 gm Q15M PRN PO DECREASED GLUCOSE; Start 11/13/16 at 23: 45 Dextrose (D50w Syringe) 25 ml Q15M PRN IV DECREASED GLUCOSE; Start 11/13/16 at 23:45 Dextrose (D50w Syringe) 50 ml Q15M PRN IV DECREASED GLUCOSE; Start 11/13/16 at 23:45 Glucagon (Glucagen) 1 mg Q15M PRN IM DECREASED GLUCOSE; Start 11/13/16 at 23:45 Glucose (Glutose) 15 gm Q15M PRN BUCCAL DECREASED GLUCOSE; Start 11/13/16 at 23 :45 Ondansetron HCl (Zofran Inj) 4 mg Q6H PRN IV NAUSEA AND/OR VOMITING Last administered on 11/14/16 15:10; Admin Dose 4 MG; Start 11/14/16 at 06:00 Insulin Glargine (Lantus) 18 unit DAILY@20 SC Last administered on 11/21/16 22 :43; Admin Dose 18 UNIT; Start 11/16/16 at 20:00 Aspirin (Halfprin) 81 mg DAILY PO Last administered on 11/21/16 08:32; Admin Dose 81 MG; Start 11/16/16 at 16:00 Amiodarone HCl (Cordarone) 200 mg BID PO Last administered on 11/21/16 22:41; Admin Dose 200 MG; Start 11/16/16 at 21:00 Metoprolol Tartrate (Lopressor) 12.5 mg BID PO Last administered on 11/21/16 22:40; Admin Dose 12.5 MG; Start 11/18/16 at 21:00 Meclizine HCl (Antivert) 25 mg Q6H PRN PO Dizziness Last administered on 05:11; Admin Dose 25 MG; Start 11/21/16 at 05:30 LY LOPEZ DO Nov 22, 2016 08:34
[2016-11-22 08:40] LABS: CALCIUM 7.7 mg/dl (8.4-10.2); CREATININE 4.4 mg/dl (0.44-1.00); POTASSIUM 5.1 mmol/L (3.5-5.1)
--- NOTE | 2016-11-22 10:10 | RADRPT ---
PROCEDURE: XR Chest 1 view. CLINICAL INDICATION: Shortness of breath. TECHNIQUE: AP views of the chest were obtained. COMPARISON: July 30, 2016 FINDINGS: The heart is large. Calcified atherosclerosis is noted in the aorta. Left sided dialysis catheter h as its tip in the mid right atrium. Mild elevation right hemidiaphragm is identified. Mild central pulmonary vascular congestion and interstitial prominence is seen in both lungs. Atelectasis is no real at the lung bases. No consolidations are identified. No pneumothorax is seen. Osseous structu res are intact. IMPRESSION: Cardiomegaly with calcified atherosclerosis in the aorta. Mild central pulmonary vascular congestion and interstitial prominence in both lungs. Atelectasis at the lung bases. RPTAT: AA .Marcelo Davenport MD, Date Time Electronically viewed and signed by .Marcelo Davenport MD, MD on 11/22/2016 10:09 .P/
--- NOTE | 2016-11-22 10:34 | OPR ---
DATE OF OPERATION: 11/14/2016 PREOPERATIVE DIAGNOSIS: Nonfunctional left IJ PermCath. POSTOPERATIVE DIAGNOSIS: Nonfunctional left IJ PermCath. OPERATIVE PROCEDURE: 1. Removal of left IJ PermCath over wire. 2. Percutaneous catheter placement over the wire and into the superior vena cava. 3. Superior vena cavogram. 4. Percutaneous venoplasty of the superior vena cava fibrin sheath. 5. Replacement of PermCath over the wire. SURGEON: Ab Balbuena MD ANESTHESIA: Local. ESTIMATED BLOOD LOSS: Minimal. COMPLICATIONS: None. INDICATIONS: This is a 61-year-old woman. She has been on dialysis for quite awhile. She has a left IJ PermCath that was placed about 6 months ago. I had placed a fistula several weeks ago but it is not mature yet and not ready to use. Her catheter was not able to be used at dialysis. There have been several attempts at treating it with CPA and has been unsuccessful. They brought her in today for replacement of the catheter. There was a fibrin sheath that had developed and was likely clogging the catheter, so I ballooned that at the time of the catheter placement. DESCRIPTION OF PROCEDURE: The patient was brought to the landscape laborer, placed on the table in supine position. The left neck and chest were prepped and draped in the usual sterile fashion. The patient was given 2 grams of Ancef intravenously. I injected about 10 mL of 1 percent Xylocaine around the entry site of the catheter in the left upper chest wall. I freed the catheter by cutting away the fibrous tissue connecting to the cuff on the catheter. I then placed an Amplatz Super Stiff wire through the distal port of the catheter, leaving it in the right atrium. I then removed the sheath over the wire and advanced it 20 cm, a 6- Filipino sheath over the wire and into the superior vena cava. I then used the accompanying catheter to direct the wire into the inferior vena cava, where I left the wire for the rest of the procedure. I then injected through the sheath and did a vena cavogram that showed there was narrowing in the superior vena cava, likely from the fibrin sheath that had formed around the catheter. I placed a 7 mm x 4 cm balloon over the wire and angioplastied this segment of the superior vena cava to 8 atmospheres. Completion venogram showed no residual fibrin sheath or stenosis. I then removed the sheath and then replaced a PermCath. I used a 28 cm PermCath that was advanced into the right atrium over the wire. The wire was removed. The catheter flushed easily and there was good backflow. I placed 2 mL of heparin in each port. I then anchored the catheter to the skin using a 3-0 nylon suture. Sterile dressing was applied, and the patient was then transferred back to her room in stable condition. She tolerated the procedure well without any complications. She can go to dialysis today and then be discharged home afterwards, then follow up with me in the office in several weeks to re-evaluate the fistula. Dictated By: Ab Balbuena MD /[email or web address] /Document#: [id number] CC: Isaac Alexander MD;*[facility]*
--- NOTE | 2016-11-22 15:31 | PN ---
Date/Time of Note Date/Time of Note DATE: 11/22/16 TIME: 15:29 Assessment/Plan VTE Prophylaxis VTE Prophylaxis Intervention: other Lines/Catheters IV [facility] Peripheral IV Urinary Cath still in place: No Assessment/Plan Assessment/Plan -Atrial fibrillation with rapid ventricular response during hemodialysis on 11/16 , currently in sinus rhythm. Continue amiodarone and metoprolol. Dr. Silveira is following patient in cardiology consultation. -Hypertensive urgency on admission, continue benazepril and Procardia. -Left [place] catheter malfunction, status post catheter exchange by Dr. Balbuena. -End-stage renal disease, Dr. Ndiaye is following in nephrology consultation. -Diabetes mellitus, hemoglobin A1c 7.6, continue Lantus and NovoLog. -S/p left radiocephalic arteriovenous fistula by Dr Balbuena on 10/12/16. -Hypothyroidism, continue levothyroxine. Further recommendations based on clinical course. Plan of care discussed with Dr. Alexander. Subjective 24 Hr Interval Summary Respiratory: no complaints Cardiovascular: other Gastrointestinal: no complaints Genitourinary: no complaints Musculoskeletal: no complaints Skin: no complaints Exam/Review of Systems Vital Signs Vitals Vital Signs Date Time Temp Pulse Resp B/P Pulse Ox O2 Delivery O2 Flow Rate FiO2 11/22/16 12:43 60 11/22/16 12:23 98.0 18 145/63 98 11/20/16 00:01 Room Air Intake and Output 11/21/16 11/21/16 11/22/16 15:00 23:00 07:00 Intake Total 500 ml 340 ml Output Total 3500 ml Balance -3000 ml 340 ml Exam Constitutional: alert, oriented, well developed Respiratory: clear to auscultation, normal air movement Cardiovascular: nl pulses, other (SR, HR 69), regular rate and rhythm Gastrointestinal: non-tender, soft Musculoskeletal: nl extremities to inspection Extremities: normal pulses Neurological: nl mental status, nl speech Results Result Diagram: 11/22/1618 11/22/1618 Results 24 hrs Laboratory Tests Test 11/21/16 17:42 11/21/16 19:47 11/22/16 07:18 11/22/16 07:52 Bedside Glucose 136 140 185 White Blood Count 5.5 Red Blood Count 2.91 L Hemoglobin 9.1 L Hematocrit 28.0 L Mean Corpuscular Volume 96.2 Mean Corpuscular Hemoglobin 31.3 Mean Corpuscular Hemoglobin Concent 32.5 Red Cell Distribution Width 15.4 H Platelet Count 190 # Mean Platelet Volume 12.0 H Neutrophils % 61.8 Lymphocytes % 13.7 L Monocytes % 15.6 H Eosinophils % 7.3 H Basophils % 0.5 Nucleated Red Blood Cells % 0.0 Neutrophils # 3.4 Lymphocytes # 0.8 Monocytes # 0.9 Eosinophils # 0.4 Basophils # 0.0 Nucleated Red Blood Cells # 0.0 Sodium Level 135 Potassium Level 5.1 Chloride Level 91 L Carbon Dioxide Level 27 Anion Gap 22 H Blood Urea Nitrogen 42 H Creatinine 4.40 #H Glucose Level 132 # Calcium Level 7.7 L Test 11/22/16 11:54 Bedside Glucose 222 H Medications Medications Current Medications Benazepril HCl (Lotensin) 40 mg DAILY PO Last administered on 11/22/16 08:27; Admin Dose 40 MG; Start 11/14/16 at 09:00 Folic Acid (Folic Acid) 1 mg DAILY PO Last administered on 11/22/16 08:27; Admin Dose 1 MG; Start 11/14/16 at 09:00 Gabapentin (Neurontin) 100 mg TID PO Last administered on 11/22/16 12:17; Admin Dose 100 MG; Start 11/14/16 at 09:00 Nifedipine (Procardia Xl) 30 mg QAM PO Last administered on 11/22/16 08:27; Admin Dose 30 MG; Start 11/14/16 at 09:00 Pentoxifylline (Trental) 400 mg DAILY PO Last administered on 11/22/16 08:27; Admin Dose 400 MG; Start 11/14/16 at 09:00 Zinc Sulfate (Zinc Sulfate) 220 mg TID PO Last administered on 11/22/16 12:17 ; Admin Dose 220 MG; Start 11/14/16 at 09:00 Nifedipine (Procardia Xl) 60 mg QPM PO Last administered on 11/21/16 22:41; Admin Dose 60 MG; Start 11/13/16 at 23:40 Hydralazine HCl (Apresoline) 20 mg Q6H PRN IV ELEVATED SYSTOLIC BP Last administered on 11/13/16 23:49; Admin Dose 20 MG; Start 11/13/16 at 23:30 Acetaminophen (Tylenol Tab) 650 mg Q4H PRN PO PAIN AND OR ELEVATED TEMP Last administered on 11/21/16 12:17; Admin Dose 650 MG; Start 11/13/16 at 23:30 Diagnostic Test (Pha) (Accu-Chek) 1 ea 02 XX ; Start 11/14/16 at 02:00 Miscellaneous Information 1 ea NOTE XX ; Start 11/13/16 at 23:45 Glucose (Glutose) 15 gm Q15M PRN PO DECREASED GLUCOSE; Start 11/13/16 at 23:45 Glucose (Glutose) 22.5 gm Q15M PRN PO DECREASED GLUCOSE; Start 11/13/16 at 23: 45 Dextrose (D50w Syringe) 25 ml Q15M PRN IV DECREASED GLUCOSE; Start 11/13/16 at 23:45 Dextrose (D50w Syringe) 50 ml Q15M PRN IV DECREASED GLUCOSE; Start 11/13/16 at 23:45 Glucagon (Glucagen) 1 mg Q15M PRN IM DECREASED GLUCOSE; Start 11/13/16 at 23:45 Glucose (Glutose) 15 gm Q15M PRN BUCCAL DECREASED GLUCOSE; Start 11/13/16 at 23 :45 Ondansetron HCl (Zofran Inj) 4 mg Q6H PRN IV NAUSEA AND/OR VOMITING Last administered on 11/14/16 15:10; Admin Dose 4 MG; Start 11/14/16 at 06:00 Insulin Glargine (Lantus) 18 unit DAILY@20 SC Last administered on 11/21/16 22 :43; Admin Dose 18 UNIT; Start 11/16/16 at 20:00 Aspirin (Halfprin) 81 mg DAILY PO Last administered on 11/22/16 08:27; Admin Dose 81 MG; Start 11/16/16 at 16:00 Amiodarone HCl (Cordarone) 200 mg BID PO Last administered on 11/22/16 08:26; Admin Dose 200 MG; Start 11/16/16 at 21:00 Metoprolol Tartrate (Lopressor) 12.5 mg BID PO Last administered on 11/22/16 08:28; Admin Dose 12.5 MG; Start 11/18/16 at 21:00 Meclizine HCl (Antivert) 25 mg Q6H PRN PO Dizziness Last administered on 05:11; Admin Dose 25 MG; Start 11/21/16 at 05:30 MERI CRUZ Nov 22, 2016 15:31
--- NOTE | 2016-11-22 15:38 | CONS ---
Date/Time of Note Date/Time of Note DATE: 11/22/16 TIME: 15:37 Assessment/Plan Assessment/Plan Additional Assessment/Plan Paroxysmal atrial fibrillation with rapid ventricular rates, currently sinus rhythm Hemodialysis, end-stage renal disease Hypertension Anemia Preserved ejection fraction -Patient remains in sinus rhythm, continue amiodarone at the current time and decreased dose to daily upon discharge, continue beta-erin as heart rate and blood pressure permits. Patient with worsening anemia on this hospitalization and one incident of atrial fibrillation happened during dialysis. Would hold off on initiation of anticoagulation at the current time, continue aspirin if no contraindication. Fluid management via hemodialysis as per our nephrology colleagues. DC planning Consultation Date/Type/Reason Admit Date/Time Nov 13, 2016 at 19:02 Type of Consultation: cv 24 HR Interval Summary Free Text/Dictation Denies shortness of breath, palpitations or chest pain Exam/Review of Systems Vital Signs Vitals Vital Signs Date Time Temp Pulse Resp B/P Pulse Ox O2 Delivery O2 Flow Rate FiO2 11/22/16 12:43 60 11/22/16 12:23 98.0 18 145/63 98 11/20/16 00:01 Room Air Intake and Output 11/21/16 11/21/16 11/22/16 15:00 23:00 07:00 Intake Total 500 ml 340 ml Output Total 3500 ml Balance -3000 ml 340 ml Exam No apparent distress Constitutional: alert, oriented Head: normocephalic Respiratory: other (Coarse breath sounds bilaterally, no wheezing) Cardiovascular: other (S1-S2 heard), regular rate and rhythm Gastrointestinal: bowel sounds, non-tender, soft Extremities: edema Results Result Diagram: 11/22/16 0718 11/22/16 0718 Results 24 hrs Laboratory Tests Test 11/21/16 17:42 11/21/16 19:47 11/22/16 07:18 11/22/16 07:52 Bedside Glucose 136 140 185 White Blood Count 5.5 Red Blood Count 2.91 L Hemoglobin 9.1 L Hematocrit 28.0 L Mean Corpuscular Volume 96.2 Mean Corpuscular Hemoglobin 31.3 Mean Corpuscular Hemoglobin Concent 32.5 Red Cell Distribution Width 15.4 H Platelet Count 190 # Mean Platelet Volume 12.0 H Neutrophils % 61.8 Lymphocytes % 13.7 L Monocytes % 15.6 H Eosinophils % 7.3 H Basophils % 0.5 Nucleated Red Blood Cells % 0.0 Neutrophils # 3.4 Lymphocytes # 0.8 Monocytes # 0.9 Eosinophils # 0.4 Basophils # 0.0 Nucleated Red Blood Cells # 0.0 Sodium Level 135 Potassium Level 5.1 Chloride Level 91 L Carbon Dioxide Level 27 Anion Gap 22 H Blood Urea Nitrogen 42 H Creatinine 4.40 #H Glucose Level 132 # Calcium Level 7.7 L Test 11/22/16 11:54 Bedside Glucose 222 H Medications Medications Current Medications Benazepril HCl (Lotensin) 40 mg DAILY PO Last administered on 11/22/16 08:27; Admin Dose 40 MG; Start 11/14/16 at 09:00 Folic Acid (Folic Acid) 1 mg DAILY PO Last administered on 11/22/16 08:; Admin Dose 1 MG; Start 11/14/16 at 09:00 Gabapentin (Neurontin) 100 mg TID PO Last administered on 11/22/16 12:17; Admin Dose 100 MG; Start 11/14/16 at 09:00 Nifedipine (Procardia Xl) 30 mg QAM PO Last administered on 11/22/16 08:27; Admin Dose 30 MG; Start 11/14/16 at 09:00 Pentoxifylline (Trental) 400 mg DAILY PO Last administered on 11/22/16 08:27; Admin Dose 400 MG; Start 11/14/16 at 09:00 Zinc Sulfate (Zinc Sulfate) 220 mg TID PO Last administered on 11/22/16 12:17 ; Admin Dose 220 MG; Start 11/14/16 at 09:00 Nifedipine (Procardia Xl) 60 mg QPM PO Last administered on 11/21/16 22:41; Admin Dose 60 MG; Start 11/13/16 at 23:40 Hydralazine HCl (Apresoline) 20 mg Q6H PRN IV ELEVATED SYSTOLIC BP Last administered on 11/13/16 23:49; Admin Dose 20 MG; Start 11/13/16 at 23:30 Acetaminophen (Tylenol Tab) 650 mg Q4H PRN PO PAIN AND OR ELEVATED TEMP Last administered on 11/21/16 12:17; Admin Dose 650 MG; Start 11/13/16 at 23:30 Diagnostic Test (Pha) (Accu-Chek) 1 ea 02 XX ; Start 11/14/16 at 02:00 Miscellaneous Information 1 ea NOTE XX ; Start 11/13/16 at 23:45 Glucose (Glutose) 15 gm Q15M PRN PO DECREASED GLUCOSE; Start 11/13/16 at 23:45 Glucose (Glutose) 22.5 gm Q15M PRN PO DECREASED GLUCOSE; Start 11/13/16 at 23: 45 Dextrose (D50w Syringe) 25 ml Q15M PRN IV DECREASED GLUCOSE; Start 11/13/16 at 23:45 Dextrose (D50w Syringe) 50 ml Q15M PRN IV DECREASED GLUCOSE; Start 11/13/16 at 23:45 Glucagon (Glucagen) 1 mg Q15M PRN IM DECREASED GLUCOSE; Start 11/13/16 at 23:45 Glucose (Glutose) 15 gm Q15M PRN BUCCAL DECREASED GLUCOSE; Start 11/13/16 at 23 :45 Ondansetron HCl (Zofran Inj) 4 mg Q6H PRN IV NAUSEA AND/OR VOMITING Last administered on 11/14/16 15:10; Admin Dose 4 MG; Start 11/14/16 at 06:00 Insulin Glargine (Lantus) 18 unit DAILY@20 SC Last administered on 11/21/16 22 :43; Admin Dose 18 UNIT; Start 11/16/16 at 20:00 Aspirin (Halfprin) 81 mg DAILY PO Last administered on 11/22/16 08:27; Admin Dose 81 MG; Start 11/16/16 at 16:00 Amiodarone HCl (Cordarone) 200 mg BID PO Last administered on 11/22/16 08:26; Admin Dose 200 MG; Start 11/16/16 at 21:00 Metoprolol Tartrate (Lopressor) 12.5 mg BID PO Last administered on 11/22/16 08:28; Admin Dose 12.5 MG; Start 11/18/16 at 21:00 Meclizine HCl (Antivert) 25 mg Q6H PRN PO Dizziness Last administered on 05:11; Admin Dose 25 MG; Start 11/21/16 at 05:30 Filipe Silveira DO Nov 22, 2016 15:38
[2016-11-22] MEDS: INSULIN GLARGINE [LANtus] 3 ML PEN SC SCH (20:00)
[2016-11-22] MEDS: NIFEdipine (XL) 60 MG TAB PO SCH (21:25)
[2016-11-23] VITALS (14 sets, daily range): BP systolic 102–166; BP diastolic 51–75; PULSE 55–79; RESP 15–18
[2016-11-23] MEDS: ACCU-CHEK XX SCH (02:00)
[2016-11-23] MEDS: BUMETANIDE 1 MG TAB PO SCH (06:00)
[2016-11-23] MEDS: LEVOTHYROXINE 125 MCG TAB PO SCH (07:00)
[2016-11-23] MEDS: INSULIN ASPART [NOVOLOG] 3 ML PEN SC SCH ×4 (07:55→11:50)
[2016-11-23] MEDS: CALCIUM ACETATE 667 MG CAP PO SCH ×2 (07:55→11:44)
--- NOTE | 2016-11-23 09:31 | PN ---
Date/Time of Note Date/Time of Note DATE: 11/23/16 TIME: 09:30 Assessment/Plan Lines/Catheters [facility] Urinary Cath still in place: No Assessment/Plan Chief Complaint/Hosp Course 1. End-stage renal disease. The patient is on dialysis Saturday, Saturday, Saturday. Dialysis today 2. Access. The patient has a Perm-A-Cath placed 3. Hyperkalemia improved 5. Hypertension. Continue current blood pressure regime 6. Anemia of chronic disease. Continue to monitor hemoglobin and hematocrit levels. Continue Epogen. 7. Mineral bone disorder. Continue to monitor calcium and phosphate levels. Continue phosphorus binders. 8. Diabetes. Continue Accu-Cheks and insulin sliding scale. 9. Atrial fibrillation, rate controlled. Continue current medical management. 10. Hyponatremia -Dialysis on 140 sodium bath, limit free water Problems: Subjective 24 Hr Interval Summary Free Text/Dictation Patient seen and examined Dialysis today No other events noted Exam/Review of Systems Vital Signs Vitals Vital Signs Date Time Temp Pulse Resp B/P Pulse Ox O2 Delivery O2 Flow Rate FiO2 11/23/16 08:32 65 11/23/16 07:26 98.0 18 113/56 98 11/20/16 00:01 Room Air Intake and Output 11/22/16 11/22/16 11/23/16 15:00 23:00 07:00 Intake Total 700 ml 400 ml Balance 700 ml 400 ml Exam HEENT: Head is normocephalic. NECK: Supple. HEART: Regular rate LUNGS: Show diminished breath sounds at base. ABDOMEN: Soft, nontender to palpation without rebound or guarding. EXTREMITIES: Negative for clubbing, cyanosis. DERMATOLOGIC: No rashes. MUSCULOSKELETAL: No joint effusions, NEUROLOGIC: No change in exam. Results Result Diagram: 11/22/1618 11/22/16 0718 Results 24 hrs Laboratory Tests Test 11/22/16 11:54 11/22/16 17:25 11/22/16 21:22 11/23/16 08:06 Bedside Glucose 222 H 146 133 149 Medications Medications Current Medications Benazepril HCl (Lotensin) 40 mg DAILY PO Last administered on 11/22/16t 08:27; Admin Dose 40 MG; Start 11/14/16 at 09:00 Folic Acid (Folic Acid) 1 mg DAILY PO Last administered on 11/22/16 08:27; Admin Dose 1 MG; Start 11/14/16 at 09:00 Gabapentin (Neurontin) 100 mg TID PO Last administered on 11/22/16 21:24; Admin Dose 100 MG; Start 11/14/16 at 09:00 Nifedipine (Procardia Xl) 30 mg QAM PO Last administered on 11/22/16 08:27; Admin Dose 30 MG; Start 11/14/16 at 09:00 Pentoxifylline (Trental) 400 mg DAILY PO Last administered on 11/22/16 08:27; Admin Dose 400 MG; Start 11/14/16 at 09:00 Zinc Sulfate (Zinc Sulfate) 220 mg TID PO Last administered on 11/22/16 21:24 ; Admin Dose 220 MG; Start 11/14/16 at 09:00 Nifedipine (Procardia Xl) 60 mg QPM PO Last administered on 11/22/16 21:25; Admin Dose 60 MG; Start 11/13/16 at 23:40 Hydralazine HCl (Apresoline) 20 mg Q6H PRN IV ELEVATED SYSTOLIC BP Last administered on 11/13/16 23:49; Admin Dose 20 MG; Start 11/13/16 at 23:30 Acetaminophen (Tylenol Tab) 650 mg Q4H PRN PO PAIN AND OR ELEVATED TEMP Last administered on 11/21/16 12:17; Admin Dose 650 MG; Start 11/13/16 at 23:30 Diagnostic Test (Pha) (Accu-Chek) 1 ea 02 XX ; Start 11/14/16 at 02:00 Miscellaneous Information 1 ea NOTE XX ; Start 11/13/16 at 23:45 Glucose (Glutose) 15 gm Q15M PRN PO DECREASED GLUCOSE; Start 11/13/16 at 23:45 Glucose (Glutose) 22.5 gm Q15M PRN PO DECREASED GLUCOSE; Start 11/13/16 at 23: 45 Dextrose (D50w Syringe) 25 ml Q15M PRN IV DECREASED GLUCOSE; Start 11/13/16 at 23:45 Dextrose (D50w Syringe) 50 ml Q15M PRN IV DECREASED GLUCOSE; Start 11/13/16 at 23:45 Glucagon (Glucagen) 1 mg Q15M PRN IM DECREASED GLUCOSE; Start 11/13/16 at 23:45 Glucose (Glutose) 15 gm Q15M PRN BUCCAL DECREASED GLUCOSE; Start 11/13/16 at 23 :45 Ondansetron HCl (Zofran Inj) 4 mg Q6H PRN IV NAUSEA AND/OR VOMITING Last administered on 11/14/16 15:10; Admin Dose 4 MG; Start 11/14/16 at 06:00 Insulin Glargine (Lantus) 18 unit DAILY@20 SC Last administered on 11/21/16 22 :43; Admin Dose 18 UNIT; Start 11/16/16 at 20:00 Aspirin (Halfprin) 81 mg DAILY PO Last administered on 11/22/16 08:27; Admin Dose 81 MG; Start 11/16/16 at 16:00 Amiodarone HCl (Cordarone) 200 mg BID PO Last administered on 11/22/16 21:24; Admin Dose 200 MG; Start 11/16/16 at 21:00 Metoprolol Tartrate (Lopressor) 12.5 mg BID PO Last administered on 11/22/16 21:25; Admin Dose 12.5 MG; Start 11/18/16 at 21:00 Meclizine HCl (Antivert) 25 mg Q6H PRN PO Dizziness Last administered on 05:11; Admin Dose 25 MG; Start 11/21/16 at 05:30 LY LOPEZ DO Nov 23, 2016 09:31
[2016-11-23] MEDS ORDERED: ASPI-664 PO (10:59)
[2016-11-23] MEDS ORDERED: BENA40TA41 PO (10:59)
[2016-11-23] MEDS ORDERED: AMIO200T2 PO (10:59)
[2016-11-23] MEDS ORDERED: METO-448 PO (10:59)
[2016-11-23] MEDS ORDERED: NIFE60TA7 PO (10:59)
[2016-11-23] MEDS: ASPIRIN (EC) 81 MG TAB PO SCH (11:34)
[2016-11-23] MEDS: FOLIC ACID 1 MG TAB PO SCH (11:34)
[2016-11-23] MEDS: PENTOXIFYLLINE (SR) 400 MG TAB PO SCH (11:34)
[2016-11-23] MEDS: GABAPENTIN 100 MG CAP PO SCH ×2 (11:35→12:09)
[2016-11-23] MEDS: ZINC SULFATE 220 MG CAP PO SCH ×2 (11:35→12:09)
[2016-11-23] MEDS: METOPROLOL 25 MG TAB PO SCH (11:35)
[2016-11-23] MEDS: AMIODARONE 200 MG TAB PO SCH (11:36)
[2016-11-23] MEDS: NIFEdipine (XL) 30 MG TAB PO SCH (11:36)
[2016-11-23] MEDS: BENAZEPRIL 40 MG TAB PO SCH (11:36)
--- NOTE | 2016-11-23 11:48 | CONS ---
Date/Time of Note Date/Time of Note DATE: 11/23/16 TIME: 11:46 Assessment/Plan Assessment/Plan Additional Assessment/Plan Paroxysmal atrial fibrillation with rapid ventricular rates, currently sinus rhythm Hemodialysis, end-stage renal disease Hypertension Anemia Preserved ejection fraction -Patient remains in sinus rhythm, continue amiodarone at the current time and decreased dose to daily upon discharge, continue beta-erin as heart rate and blood pressure permits. Patient with worsening anemia on this hospitalization and one incident of atrial fibrillation happened during dialysis. Would hold off on initiation of anticoagulation at the current time, continue aspirin if no contraindication. Fluid management via hemodialysis as per our nephrology colleagues. DC planning Consultation Date/Type/Reason Admit Date/Time Nov 13, 2016 at 19:02 Type of Consultation: cv 24 HR Interval Summary Free Text/Dictation Denies shortness of breath, palpitations or dizziness Exam/Review of Systems Vital Signs Vitals Vital Signs Date Time Temp Pulse Resp B/P Pulse Ox O2 Delivery O2 Flow Rate FiO2 11/23/16 08:32 65 11/23/16 08:00 17 11/23/16 07:26 98.0 113/56 98 11/20/16 00:01 Room Air Intake and Output 11/22/16 11/22/16 11/23/16 15:00 23:00 07:00 Intake Total 700 ml 400 ml Balance 700 ml 400 ml Exam No apparent distress, sitting in chair Constitutional: alert, oriented Head: normocephalic Respiratory: other (Coarse breath sounds bilaterally, no wheezing) Cardiovascular: other (S1-S2 heard), regular rate and rhythm Gastrointestinal: bowel sounds, non-tender, soft Extremities: edema Results Result Diagram: 11/22/1618 11/22/16 0718 Results 24 hrs Laboratory Tests Test 11/22/16 11:54 11/22/16 17:25 11/22/16 21:22 11/23/16 08:06 Bedside Glucose 222 H 146 133 149 Medications Medications Current Medications Benazepril HCl (Lotensin) 40 mg DAILY PO Last administered on 11/22/16 08:27; Admin Dose 40 MG; Start 11/14/16 at 09:00 Folic Acid (Folic Acid) 1 mg DAILY PO Last administered on 11/22/16 08:27; Admin Dose 1 MG; Start 11/14/16 at 09:00 Gabapentin (Neurontin) 100 mg TID PO Last administered on 11/22/16 21:24; Admin Dose 100 MG; Start 11/14/16 at 09:00 Nifedipine (Procardia Xl) 30 mg QAM PO Last administered on 11/22/16 08:27; Admin Dose 30 MG; Start 11/14/16 at 09:00 Pentoxifylline (Trental) 400 mg DAILY PO Last administered on 11/22/16 08:27; Admin Dose 400 MG; Start 11/14/16 at 09:00 Zinc Sulfate (Zinc Sulfate) 220 mg TID PO Last administered on 11/22/16 21:24 ; Admin Dose 220 MG; Start 11/14/16 at 09:00 Nifedipine (Procardia Xl) 60 mg QPM PO Last administered on 11/22/16 21:25; Admin Dose 60 MG; Start 11/13/16 at 23:40 Hydralazine HCl (Apresoline) 20 mg Q6H PRN IV ELEVATED SYSTOLIC BP Last administered on 11/13/16 23:49; Admin Dose 20 MG; Start 11/13/16 at 23:30 Acetaminophen (Tylenol Tab) 650 mg Q4H PRN PO PAIN AND OR ELEVATED TEMP Last administered on 11/21/16 12:17; Admin Dose 650 MG; Start 11/13/16 at 23:30 Diagnostic Test (Pha) (Accu-Chek) 1 ea 02 XX ; Start 11/14/16 at 02:00 Miscellaneous Information 1 ea NOTE XX ; Start 11/13/16 at 23:45 Glucose (Glutose) 15 gm Q15M PRN PO DECREASED GLUCOSE; Start 11/13/16 at 23:45 Glucose (Glutose) 22.5 gm Q15M PRN PO DECREASED GLUCOSE; Start 11/13/16 at 23: 45 Dextrose (D50w Syringe) 25 ml Q15M PRN IV DECREASED GLUCOSE; Start 11/13/16 at 23:45 Dextrose (D50w Syringe) 50 ml Q15M PRN IV DECREASED GLUCOSE; Start 11/13/16 at 23:45 Glucagon (Glucagen) 1 mg Q15M PRN IM DECREASED GLUCOSE; Start 11/13/16 at 23:45 Glucose (Glutose) 15 gm Q15M PRN BUCCAL DECREASED GLUCOSE; Start 11/13/16 at 23 :45 Ondansetron HCl (Zofran Inj) 4 mg Q6H PRN IV NAUSEA AND/OR VOMITING Last administered on 11/14/16 15:10; Admin Dose 4 MG; Start 11/14/16 at 06:00 Insulin Glargine (Lantus) 18 unit DAILY@20 SC Last administered on 11/21/16 22 :43; Admin Dose 18 UNIT; Start 11/16/16 at 20:00 Aspirin (Halfprin) 81 mg DAILY PO Last administered on 11/22/16 08:27; Admin Dose 81 MG; Start 11/16/16 at 16:00 Amiodarone HCl (Cordarone) 200 mg BID PO Last administered on 11/22/16 21:24; Admin Dose 200 MG; Start 11/16/16 at 21:00 Metoprolol Tartrate (Lopressor) 12.5 mg BID PO Last administered on 11/22/16 21:25; Admin Dose 12.5 MG; Start 11/18/16 at 21:00 Meclizine HCl (Antivert) 25 mg Q6H PRN PO Dizziness Last administered on 05:11; Admin Dose 25 MG; Start 11/21/16 at 05:30 Epoetin Lico (Epogen (Esrd)) 12,000 units ONCE ONCE SC ; Start 11/23/16 at 12: 00; Stop 11/23/16 at 12:01 Filipe Silveira DO Nov 23, 2016 11:48
[2016-11-23] MEDS ORDERED: EPOETIN 4000 UNITS/1 ML INJ (ESRD) SC ONE (12:00)
--- NOTE | 2016-11-27 08:10 | CONS ---
DATE OF ADMISSION: 11/13/2016 DATE OF CONSULTATION: Nephrology Consult REASON FOR CONSULTATION: Endstage renal disease, hyperkalemia. HISTORY OF PRESENT ILLNESS: This is a 61-year-old female with a past medical history of endstage renal disease on dialysis Saturday, , Saturday; history of diabetes; hypertension, who presented to [facility] due to twin catheter malfunction. Patient was at her dialysis clinic, but she was unable to do dialysis due to the malfunction. Patient recently also had AV fistula placement on October [address] Balbuena. As a result, the patient was brought in to the emergency room for evaluation. Upon arrival, the patient was noted to be normokalemic with a potassium of 5.0, a BUN of 40, creatinine of 5.88. The patient was admitted to telemetry. Overnight the patient was stable. The patient is scheduled for a twin catheter placement by Dr Balbuena this morning. No other acute plans noted. PAST MEDICAL HISTORY: See above. History of endstage renal disease, history of hypertension, history of diabetes. PAST SURGICAL HISTORY: Status post AV fistula placement on 10/12. FAMILY HISTORY: Noncontributory. SOCIAL HISTORY: She does not drink, smoke, or do drugs. MEDICATION: The patient's medications have been reviewed. REVIEW OF SYSTEMS: A 14-point review of systems was conducted. Pertinent positives stated in HPI, otherwise negative. PHYSICAL EXAM: VITALS: Blood pressure is 122/76, respirations 19, pulse 56, temperature 97.8. HEENT: Head is normocephalic. Pupils are reactive to light. NECK: Supple. HEART: Regular rate. LUNGS: Show diminished breath sounds at the base. ABDOMEN: Soft, nontender to palpation. No rebound or guarding. EXTREMITIES: Negative for clubbing or cyanosis. No edema. DERMATOLOGIC: No rashes. MUSCULOSKELETAL: The patient has a left AV fistula with a positive thrill and bruit. NEUROLOGIC: No focal deficits. LABORATORY DATA: Sodium 134, potassium 6.3, chloride 97. BUN 50, creatinine 6.92. White count 9.3, hemoglobin 9.2, hematocrit 25.6. Platelet count is 230. The patient's imaging studies were also reviewed. ASSESSMENT AND PLAN: This is a 61-year-old female who presents with: 1. Endstage renal disease. The patient is on dialysis Saturday, , Saturday. Access is an arteriovenous (AV) fistula and twin catheter with current malfunction. The plan is to have a twin catheter exchange. The patient will then receive dialysis with 3 hours on 2K bath, potassium 2.5. 2. Hyperkalemia. Patient will be dialyzed on a 2 potassium bath. Continue low potassium diet. 3. Hypertension. Continue current blood pressure regimen. 4. Anemia. Will monitor hemoglobin and hematocrit levels. Will give Epogen with hemodialysis. 5. Mineral bone disorder. Will monitor potassium and phosphorus levels. Will consider phosphate binders. 6. Diabetes. Continue with current insulin regimen. 7. Hypothyroidism. Continue synthroid. Thank you, Dr Alexander for this interesting consult. It will be a pleasure to follow the patient with you throughout the hospital course. Dictated By: Frankie Ndiaye DO /bri/emma /Document#: [id number]
--- NOTE | 2016-11-27 17:53 | DS ---
Date/Time of Note Date/Time of Note DATE: 11/27/16 TIME: 17:51 Discharge Summary Admission/Discharge Info Admit Date/Time Nov 13, 2016 at 19:02 Discharge Date/Time Nov 23, 2016 at 13:45 Patient Condition: Good Hx of Present Illness The patient is 61-year-old female who was sent to the emergency room from dialysis center due to the fact that she was not able to undergo dialysis via left Milton catheter. Patient underwent creation of left radiocephalic atrial venous fistula in October [address] Balbuena which is not matured yet. Patient was noted to be hypertensive in the emergency room with systolic blood pressure above 200, was given labetalol and hydralazine with improvement in blood pressure. Patient's complains of nausea, patient denies any chest pain denies shortness of breath denies any vomiting diarrhea. Patient is admitted to telemetry floor for further evaluation and management. Hospital Course -Atrial fibrillation with rapid ventricular response during hemodialysis on 11/16 , currently in sinus rhythm. Patient was initially started on Cardizem drip, converted to sinus rhythm . Dr. Silveira was following patient in cardiology consultation. Patient was started on amiodarone and metoprolol, education titrated by cardiology. Patient does not have any episodes of atrial fibrillation. Discharged home with prescription for amiodarone and metoprolol. -Hypertensive urgency on admission, continue benazepril and Procardia. -Left Milton catheter malfunction, status post catheter exchange by Dr. Balbuena. -End-stage renal disease, Dr. Ndiaye is following in nephrology consultation. -Diabetes mellitus, hemoglobin A1c 7.6, continue Lantus and NovoLog. -S/p left radiocephalic arteriovenous fistula by Dr Balbuena on 10/12/16. -Hypothyroidism, continue levothyroxine. Home Meds Active Scripts Nifedipine (Afeditab CR) 60 Mg Tablet.sa, 60 MG PO QPM for 30 Days Prov:CARLA PEACOCK 11/23/16 Metoprolol Tartrate* (Lopressor*) 25 Mg Tab, 12.5 MG PO BID for 30 Days, TAB Prov:CARLA PEACOCK 11/23/16 Benazepril Hcl* (Benazepril Hcl*) 40 Mg Tablet, 40 MG PO DAILY for 30 Days, TAB Prov:CARLA PEACOCK 11/23/16 Aspirin* (Aspirin* EC) 81 Mg Tablet.dr, 81 MG PO DAILY for 30 Days Prov:CARLA PEACOCK 11/23/16 Amiodarone Hcl* (Amiodarone Hcl*) 200 Mg Tablet, 200 MG PO DAILY for 30 Days, TAB Prov:CARLA PEACOCK 11/23/16 Reported Medications Rifapentine (Priftin) 150 Mg Tablet, 900 MG PO QD, TAB TAKE 6TAB Q Saturdays11/13/16 Ergocalciferol (Vitamin D2) (VITAMIN D2) 50,000 Unit Capsule, 78486 UNIT PO Q SATURDAYS, CAP 11/13/16 Insulin Human Nph (Novolin-N) 100 Units/Ml Susp, 10 UNIT SQ BID TAKE QAM AND QHS 11/13/16 Gabapentin* (Gabapentin*) 100 Mg Capsule, 100 MG PO TID, #90 CAP 11/13/16 Folic Acid* (Folic Acid*) 1 Mg Tablet, 1 MG PO DAILY, TAB 11/13/16 Bumetanide* (Bumetanide*) 1 Mg Tablet, 2 MG PO BID, TAB 11/13/16 Pentoxifylline* (Pentoxifylline*) 400 Mg Tablet.sa, 400 MG PO DAILY, TAB 07/17/16 Isoniazid* (Isoniazid*) 300 Mg Tablet, 900 MG PO Q SATURDAYS, TAB 07/17/16 Pyridoxine Hcl* (Pyridoxine Hcl*) 50 Mg Tablet, 50 MG PO DAILY, TAB 07/17/16 Levothyroxine Sodium* (Levothyroxine Sodium*) 125 Mcg Tablet, 125 MCG PO BEFORE BREAKFAST, #30 TAB 07/17/16 Calcium Acetate* (Calcium Acetate*) 667 Mg Capsule, 1334 MG PO WITH MEALS, #30 CAP 07/17/16 Discontinued Reported Medications Zinc Sulfate* (Zinc Sulfate*) 220 Mg Cap, 220 MG PO TID, CAP 11/13/16 Nifedipine (Procardia Xl) 60 Mg Tab.er.24, 60 MG PO QPM, TAB 11/13/16 Nifedipine* (Nifedipine ER*) 30 Mg Tablet.sa, 30 MG PO QAM, TAB.SA 11/13/16 Benazepril Hcl* (Benazepril Hcl*) 40 Mg Tablet, 40 MG PO DAILY, #30 TAB 07/17/16 Follow-up Plan Follow-up in hemodialysis center for next hemodialysis Primary Care Provider Melonie Payne MD Time spent on discharge: > 30 minutes CARLA PEACOCK Nov 27, 2016 17:53
--- NOTE | 2016-11-28 06:20 | PN ---
DATE: 11/21/2016 SUBJECTIVE DATA: The patient is stable. In no acute distress. The patient is having hemodialysis today. No other events noted. OBJECTIVE DATA: Blood pressure 122/59. Respirations 18. Pulse 61. Temperature 98.3. HEENT: Head is normocephalic. Neck supple. Heart: Regular rate. Lungs: Diminished breath sounds at the bases. Abdomen soft, nontender on palpation. No rebound or guarding. Extremities: Negative for clubbing, cyanosis or edema. Dermatologic: No rashes. Musculoskeletal: No joint effusion. Neurological: No focal deficits. MEDICATIONS:: The patient's medications were reviewed. LABORATORY AND DIAGNOSTIC DATA: Laboratory data from 11/20/2016 was reviewed. No laboratory data from 11/21/2016. ASSESSMENT AND PLAN: 1. End-stage renal disease. Plan for dialysis today, 2 K bath, calcium 2.5. 2. Hyperkalemia. The patient will be dialyzed with potassium bath. Renal diet. 3. Access. The patient is status post PermCath placement. 4. Hypertension. Continue current blood pressure regimen. 5. Anemia. Monitor hemoglobin and hematocrit levels. 6. Metabolic bone disorder. Monitor calcium and phosphorus levels. 7. Diabetes. Continue Accu-Chek and insulin sliding scale. 8. Atrial fibrillation. Continue current medical management. 9. Hyponatremia, resolved. Dictated By: Frankie Ndiaye DO /bri/mg /Document#: [id number]
== END 2016-11-23 13:45 | disposition home health service (06) | DRG 252 ==
LOC: E/R 14:44 → TEL 19:02
PROVIDERS: ADMIT Internal Medicine; ATTEND Internal Medicine
PROC: 5A1D60Z (ICD-10-PCS; 2016-11-14)
PROC: 027V3ZZ Dilation of Superior Vena Cava, Percutaneous Approach (ICD-10-PCS; principal; 2016-11-14 13:00)
PROC: 02PYX3Z Removal of Infusion Device from Great Vessel, External Approach (ICD-10-PCS; 2016-11-14 13:00)
PROC: 02H633Z Insertion of Infusion Device into Right Atrium, Percutaneous Approach (ICD-10-PCS; 2016-11-14 13:00)
DX: T82.41XA Breakdown (mechanical) of vascular dialysis catheter, initial encounter (principal); N18.6 End stage renal disease; E11.22 Type 2 diabetes mellitus with diabetic chronic kidney disease; I12.0 Hypertensive chronic kidney disease with stage 5 chronic kidney disease or end stage renal disease; E87.1 Hypo-osmolality and hyponatremia; I87.1 Compression of vein; I16.0 Hypertensive urgency; I48.91 Unspecified atrial fibrillation; D63.8 Anemia in other chronic diseases classified elsewhere; E87.5 Hyperkalemia; E03.9 Hypothyroidism, unspecified; Z99.2 Dependence on renal dialysis; Z79.4 Long term (current) use of insulin
CPT/HCPCS: 36415; 37248; 71010; 75827; 80048; 82962; 83036; 83735; 84100; 85025; 87081; 90935; 93005; 96374; 96375; 96376; C1725; C1750; C1769; C1887; C1894; J0360; J0690; J1644; J1815; J2250; J2405; J2997; J3010; J7040; Q4081; Q9967

== ENCOUNTER 2017-01-04 07:33 | Day surgery (SDC) | payer OTHER ==
[~2017-01-04] VITALS: Ht 157.5 cm; Wt 87.2 kg
[~2017-01-04 07:33] MED LIST changes: -ACET325T40 PO; +BUME1TAB18 PO; +ERGO500037 PO; -FER325 PO; +FOLI-49 PO; +GABA100C14 PO; -METO-429 PO; +METO-448 PO; +NIFE60TA7 PO; -NIFE90TA PO; +NPH SQ; -NYST1000 PO; +RIFA150T PO
[2017-01-04 08:13] VITALS: BP 210/110; PULSE 81; RESP 16; Ht 157.5 cm; Wt 87.2 kg
[2017-01-04] MEDS ORDERED: LIDOCAINE 1% (MDV) 20 ML INJ ONE (08:30)
[2017-01-04] MEDS ORDERED: IODIXANOL LOCM 100 ML BTL ONE (08:30)
[2017-01-04] MEDS ORDERED: HEPARIN 1000 UNITS/NS (A-LINE) 1,000 ML ONE (08:30)
[2017-01-04 09:20] VITALS: BP 226/97; PULSE 71; RESP 16
--- NOTE | 2017-01-04 09:29 | SIPON ---
Date/Time of Note Date/Time of Note DATE: 01/04/17 TIME: 09:27 Operative Report Preoperative Diagnosis L arm AVF non maturation Postoperative Diagnosis same Operation/Procedure Performed L arm AVF gram, [employer]ATE AV anastomosis Anesthesia Type: other Estimated Blood Loss: none Transfusion Required: no Specimen: none Grafts/Implants: none Complications: no KYLE MONCADA MD Jan 04, 2017 09:29
[2017-01-04] MEDS ORDERED: METOPROLOL 25 MG TAB PO ONE (10:00)
[2017-01-04] MEDS ORDERED: AMIODARONE 200 MG TAB PO ONE (10:00)
[2017-01-04] MEDS ORDERED: NIFEdipine (XL) 60 MG TAB PO ONE (10:00)
[2017-01-04] MEDS ORDERED: BENAZEPRIL 40 MG TAB PO ONE (10:00)
--- NOTE | 2017-01-04 10:14 | OPR ---
DATE OF OPERATION: 01/04/2017 PREOPERATIVE DIAGNOSIS: End-stage renal disease, with non- maturing left arm arteriovenous fistula. POSTOPERATIVE DIAGNOSIS: End-stage renal disease, with non- maturing left arm arteriovenous fistula. OPERATION PERFORMED: 1. Left arm arteriovenous fistulogram. 2. Percutaneous angioplasty of the radial artery and the arterial venous anastomosis. SURGEON: Dr. Ab Balbuena. ANESTHESIA: Local anesthesia. ESTIMATED BLOOD LOSS: Minimal. COMPLICATIONS: There were intraprocedural complications. INDICATIONS: This is a 61-year-old diabetic, hypertensive woman with end-stage renal disease. She has a PermCath in place. She has a left radiocephalic AV fistula that I had created several months ago and it has a decent thrill but it just failed to mature, so not large enough to access currently. I brought her in today for an AV fistulogram and possible intervention for maturation. OPERATIVE PROCEDURE: Patient was brought to the brick and blocker aid labor, placed on table in supine position. Left arm was prepped and draped in the usual sterile fashion. I evaluated the fistula using ultrasound. It looked better from the radial artery anastomosis. Up to the elbow, the fistula is patent. The arterial anastomosis, there is some calcification and it looks like stenosis right at the arteriovenous anastomosis, but the vein itself is a good size up to the elbow and then splits off and joins the basilic vein. After the left arm was prepped and draped, I then infiltrated over the cephalic vein in the lower arm toward the elbow, right below the elbow with several centimeters of 1 percent Xylocaine. Using a micropuncture needle, I entered the vein under ultrasound guidance. An 0.018 wire was inserted through the needle. The micropuncture sheath was advanced over the wire into the vein. I then did an AV fistulogram. This identified the cephalic vein is patent from the anastomosis all the way up to the elbow. The upper arm cephalic vein is occluded. The cephalic vein comes over and meets with the basilic vein at the elbow, which is large and patent all the way up to the axillary vein. The central veins are all patent without any significant stenosis. The cephalic vein is actually fairly good caliber. With compression views i could see the arterial anastomosis and there is some what looks like a web-like stricture and narrowing at the anastomosis through the radial artery. The radial artery itself looks decent caliber and is patent. I then placed a 0.035 Glidewire through the micropuncture sheath and down through the arterial anastomosis, then exchanged for a 5-Albanian sheath over the wire, then used a 4 mm x 4 cm balloon to angioplasty the arteriovenous anastomosis and the radial artery where there was an area of web- like stenosis and completion injection shows the anastomosis now widely patent. No residual stenosis and good flow through the fistula. We removed the catheter, sheaths and wires, held pressure on the puncture site until there was good hemostasis. Tolerated procedure well without complication. She can start using the fistula. I am going to see her back in my office next week and I think at that time, we will start using it. Dictated By: Ab Balbuena MD /bri/antoinette /Document#: [id number] ; Dr. Meredith Woods
[2017-01-04 12:48] VITALS: BP 203/91; PULSE 67; RESP 16
== END 2017-01-04 12:48 | disposition home or self-care (01) ==
LOC: SDS 07:33
PROVIDERS: ATTEND Surgery Vascular Surgery
DX: T82.898A Other specified complication of vascular prosthetic devices, implants and grafts, initial encounter (principal); Y84.1 Kidney dialysis as the cause of abnormal reaction of the patient, or of later complication, without mention of misadventure at the time of the procedure; Y92.89 Other specified places as the place of occurrence of the external cause; I12.0 Hypertensive chronic kidney disease with stage 5 chronic kidney disease or end stage renal disease; N18.6 End stage renal disease; E11.9 Type 2 diabetes mellitus without complications
CPT/HCPCS: 36901; 75820; 82962; C1725; C1769; C1887; C1894; J1644; Q9967; Z7610

== ENCOUNTER 2017-11-19 13:20 | Inpatient (IN) | END 2017-11-20 14:25 | disposition home or self-care (01) | DRG 304 ==

== ENCOUNTER 2018-04-15 14:04 | Emergency (ER) | END 2018-04-15 17:14 | disposition home or self-care (01) ==

== ENCOUNTER 2018-07-01 20:16 | Emergency (ER) | payer OTHER, MEDICAID ==
[~2018-07-01] VITALS: Wt 94.3 kg
[~2018-07-01 20:16] MED LIST changes: -AMIO200T2 PO; +APIX5TAB PO; -ASPI-664 PO; +ASPI81TA52 PO; -BENA40TA41 PO; +BENA40TA56 PO; -BUME1TAB18 PO; +CARV6.2579 PO; -ERGO500037 PO; -FOLI-49 PO; -GABA100C14 PO; +INSU100C3 SQ; -ISON300T72 PO; +LEVO125T7 PO; -LEVO125T75 PO; -METO-448 PO; +METO25TA4 PO; +NIFE60TA18 PO; -NIFE60TA7 PO; -NPH SQ; +PANT40TA3 PO; -PENT400T2 PO; +PENT400T9 PO; -RIFA150T PO
--- NOTE | 2018-07-01 20:45 | ERD ---
ER Documentation Chief Complaint Chief Complaint CP X'S 1.5 HRS HPI 62-year-old female history of diabetes, hypertension, hypothyroidism, end-stage renal disease on dialysis T//Sat and paroxysmal A. fib anticoagulated on Eliquis presents the ED complaining of acute onset of palpitations an hour and a half prior to arrival. Denies chest pain, shortness of breath, abdominal pain, nausea or vomiting. No leg pain or swelling. No URI symptoms, cough, hemoptysis, fevers or chills. ROS All systems reviewed and are negative except as per history of present illness. Medications Home Meds Reported Medications Apixaban* (Eliquis*) 5 Mg Tablet, 5 MG PO BID, TAB 04/15/18 Nifedipine* (Nifedipine ER*) 60 Mg Tablet.sa, 60 MG PO BID, TAB.SA 04/15/18 Levothyroxine Sodium* (Levothyroxine Sodium*) 125 Mcg Tablet, 125 MCG PO BEFORE BREAKFAST, #30 TAB 04/15/18 Pyridoxine Hcl* (Pyridoxine Hcl*) 50 Mg Tablet, 50 MG PO DAILY, TAB 11/19/17 Pentoxifylline* (Pentoxifylline*) 400 Mg Tablet.sa, 400 MG PO DAILY, TAB 11/19/17 Pantoprazole* (Protonix*) 40 Mg Tablet.dr, 40 MG PO DAILY, TAB 11/19/17 Insulin Aspart (Novolog) 100 Unit/1 Ml Cartridge, 5 UNIT SQ BID 11/19/17 Metoprolol Tartrate* (Lopressor*) 25 Mg Tablet, 25 MG PO BID, #60 TAB 11/19/17 Carvedilol* (Carvedilol*) 6.25 Mg Tablet, 6.25 MG PO BID, #60 TAB 18 Calcium Acetate* (Calcium Acetate*) 667 Mg Capsule, 1334 MG PO WITH MEALS, #60 CAP 11/19/17 Benazepril Hcl* (Benazepril Hcl*) 40 Mg Tablet, 40 MG PO DAILY, #30 TAB 11/19/17 Aspirin (Low Dose Aspirin) 81 Mg Tablet.dr, 81 MG PO DAILY, #30 TAB 11/19/17 Allergies Allergies: Coded Allergies: No Known Allergy (Unverified , 04/15/18) PMhx/Soc Reviewed in chart. As per HPI. History of Surgery: Yes (left av fistula) Anesthesia Reaction: No Hx Neurological Disorder: No Hx Respiratory Disorders: No Hx Cardiac Disorders: No Hx Psychiatric Problems: No Hx Miscellaneous Medical Probl: Yes (HTN ESRD, dialysis 3x/week) Hx Alcohol Use: No Hx Substance Use: No Hx Tobacco Use: No FmHx No sudden cardiac or stroke Physical Exam Vitals Vital Signs Date Temp Pulse Resp B/P (MAP) Pulse Ox O2 O2 Flow FiO2 Time Delivery Rate 07/01/18 75 18 165/69 100 Nasal 2.0 21:33 (101) Cannula 07/01/18 111 18 131/65 99 Nasal 21:11 (87) Cannula 07/01/18 Nasal 2 20:57 Cannula 07/01/18 97.1 66 18 111/75 98 20:21 (87) Physical Exam Const: Moderate to severe distress Head: Atraumatic Eyes: Normal Conjunctiva ENT: Normal External Ears, Nose and Mouth. Neck: Full range of motion. No JVD. Resp: Breath sounds are equal and clear to auscultation bilaterally Cardio: Tachycardic, irregularly irregular rate and rhythm. No murmurs or gallops r Abd: Soft, obese, non tender, non distended. Normal bowel sounds Skin: No petechiae or rashes Back: No midline or flank tenderness Ext: No cyanosis, or edema. Dialysis access left forearm with palpable thrill. Neur: Awake and alert Psych: Anxious but not depressed. Result Diagram: 07/01/18204107/01/182041 Results 24 hrs Laboratory Tests Test 07/01/18 20:42 07/01/18 20:44 07/01/18 23:27 07/01/18 23:51 White Blood Count 9.6 10^3/ul Red Blood Count 3.38 10^6/ul Hemoglobin 11.0 g/dl Hematocrit 33.5 % Mean Corpuscular 99.1 fl Volume Mean Corpuscular 32.5 pg Hemoglobin Mean Corpuscular 32.8 g/dl Hemoglobin Concent Red Cell 13.1 % Distribution Width Platelet Count 217 10^3/UL Mean Platelet 11.8 fl Volume Immature 1.000 % Granulocytes % Neutrophils % 77.5 % Lymphocytes % 12.3 % Monocytes % 6.1 % Eosinophils % 2.7 % Basophils % 0.4 % Nucleated Red Blood 0.0 /100WBC Cells % Immature 0.100 10^3/ul Granulocytes # Neutrophils # 7.4 10^3/ul Lymphocytes # 1.2 10^3/ul Monocytes # 0.6 10^3/ul Eosinophils # 0.3 10^3/ul Basophils # 0.0 10^3/ul Nucleated Red Blood 0.0 10^3/ul Cells # Sodium Level 138 mmol/L Potassium Level 3.9 mmol/L Chloride Level 92 mmol/L Carbon Dioxide 32 mmol/L Level Anion Gap 14 Blood Urea Nitrogen 23 mg/dl Creatinine 4.41 mg/dl Est Glomerular 10 mL/min Filtrat Rate mL/min Glucose Level 404 mg/dl Calcium Level 8.6 mg/dl Troponin I < 0.012 ng/ml Bedside Glucose 391 mg/dL 396 mg/dL 373 mg/dL Current Medications Medications Dose Sig/Aries Start Time Status Last (Trade) Ordered Route PRN Stop Time Admin Dose Reason Admin Diltiazem 20 mg ONCE ONCE 07/01/18 DC 07/01/18 HCl IV 21:00 20:52 (Cardizem Iv) 07/01/18 21:01 Insulin 5 unit ONCE ONCE 07/01/18 DC 07/01/18 Aspart Prota SC 23:00 23:33 70%/Aspart 07/01/18 23:01 30% (Novolog Mix (70/ 30) Flexpen) Procedures/MDM DOCUMENTS REVIEWED: ED nurse, prior ED, prior records EKG: Time: 20:22. Atrial fibrillation with rapid ventricular response of [address] depressions but no acute ST elevations. Normal QRS duration of 80 ms. My Interpretation EKG: Time: 21:27. Post Cardizem. Sinus rhythm. Ventricular rate 70. Normal NH and QRS. No acute ST elevations or depressions. No ectopy. My interpretation. IMAGING: Chest AP portable: Cardiomegaly. Costophrenic angles are clear. No effusions or infiltrates. No mediastinal widening or abnormalities of the bony thorax. My interpretation. MEDICAL DECISION MAKIN-year-old female history of diabetes, hypertension, hypothyroidism, end-stage renal disease on dialysis T//Sat and paroxysmal A. fib anticoagulated on Eliquis presents the ED complaining of acute onset of palpitations an hour and a half prior to arrival. Patient presents with atrial fibrillation with rapid ventricular response converted to sinus rhythm with intravenous diltiazem. No chest pain, acute ischemic EKG changes, elevated troponin or acute coronary syndrome. No radiographic evidence of volume overload or congestive heart failure. Diabetes mellitus out of control without DKA or HHS treated with subq insulin. Stable for discharge with precautionary instructions and outpatient follow-up as counseled. CRITICAL CARE TIME: Due to the high probability of sudden clinically significant hemodynamic and cardiovascular deterioration, this patient with atrial fibrillation with rapid ventricular response required multiple, frequent reevaluations of vital signs and response to therapy including chemical car dioversion. Additional critical care time was spent in extensive review of prior medical records, obtaining supplemental history from family, interpretation of relevant clinical data including labs, imaging studies and EKG's. TOTAL CRITICAL CARE TIME: 35 minutes not including other separately reportable procedures. Counseled patient and family regarding diagnostic workup, diagnosis and need for followup. Understands to return to ED if symptoms recur, worsen or any other concerns. Departure Diagnosis: Primary Impression: Palpitations Additional Impressions: Atrial fibrillation with rapid ventricular response Diabetes mellitus out of control Diabetes mellitus type: type 2 Glycemic state: with hyperglycemia Qualified Codes: E11.65 - Type 2 diabetes mellitus with hyperglycemia Hypertension Hypertension type: unspecified Qualified Codes: I10 - Essential (primary) hypertension End stage renal disease on dialysis Condition: Stable (Improved) JANUSZ BARNHART MD Jul 01, 2018 20:44
[2018-07-01] MEDS ORDERED: DILTIAZEM 25 MG INJ IV ONE (21:00)
[2018-07-01] MEDS ORDERED: INSULIN ASP PROT/ASPART (70/30) PEN SC ONE (23:00)
[2018-07-02 00:36] VITALS: BP 164/68; PULSE 65; RESP 19
== END 2018-07-02 00:36 | disposition home or self-care (01) ==
LOC: E/R 20:16
DX: I49.01 Ventricular fibrillation (principal); E03.9 Hypothyroidism, unspecified; E11.65 Type 2 diabetes mellitus with hyperglycemia; I12.0 Hypertensive chronic kidney disease with stage 5 chronic kidney disease or end stage renal disease; N18.6 End stage renal disease; E11.22 Type 2 diabetes mellitus with diabetic chronic kidney disease; Z79.4 Long term (current) use of insulin; Z79.82 Long term (current) use of aspirin; Z99.2 Dependence on renal dialysis
CPT/HCPCS: 36415; 71045; 80048; 82962; 84484; 85025; 93005; 96372; 96374; 99291; J1817

== ENCOUNTER 2018-11-28 21:15 | Inpatient (IN) | payer OTHER, MEDICAID ==
[~2018-11-28] VITALS: Ht 162.6 cm; Wt 97.5 kg
[~2018-11-28 21:15] MED LIST changes: +ASPI-817 PO; +CALC667T2 PO; +DOCU-144 PO; +Insulin Glargine SC; +METO-448 PO; +NOVO3I SC; +PANT40TA4 PO; +PSYL283P27 PO; +PYRI50CA PO
--- NOTE | 2018-11-28 23:31 | ERD ---
ER Documentation Chief Complaint Chief Complaint AP HPI The patient is a 63-year-old female, presenting to the ER because of abdominal pain intermittently for the last 2 days, had similar symptom previously, complains of vomiting and chronic diarrhea. She denies hematemesis/hematochezia, denies fever, chills, neck pain, chest pain, complains of mild dyspnea, denies any dysuria. She does not smoke nor drink she She has chronic kidney disease on hemodialysis Saturday and Saturday. However, she missed her last dialysis Past medical history: Hypertension, hypothyroidism, diabetes mellitus, chronic kidney disease, paroxysmal atrial fibrillation, peripheral neuropathy, chronic diarrhea, gastritis Past surgical history: Left upper extremity AV fistula ROS All systems reviewed and are negative except as per history of present illness. Medications Home Meds Reported Medications Apixaban* (Eliquis*) 5 Mg Tablet, 5 MG PO BID, TAB 04/15/18 Nifedipine* (Nifedipine ER*) 60 Mg Tablet.sa, 60 MG PO BID, TAB.SA 04/15/18 Levothyroxine Sodium* (Levothyroxine Sodium*) 125 Mcg Tablet, 125 MCG PO BEFORE BREAKFAST, #30 TAB 04/15/18 Pyridoxine Hcl* (Pyridoxine Hcl*) 50 Mg Tablet, 50 MG PO DAILY, TAB 11/19/17 Pentoxifylline* (Pentoxifylline*) 400 Mg Tablet.sa, 400 MG PO DAILY, TAB 11/19/17 Pantoprazole* (Protonix*) 40 Mg Tablet.dr, 40 MG PO DAILY, TAB 11/19/17 Insulin Aspart (Novolog) 100 Unit/1 Ml Cartridge, 5 UNIT SQ BID 11/19/17 Metoprolol Tartrate* (Lopressor*) 25 Mg Tablet, 25 MG PO BID, #60 TAB 11/19/17 Carvedilol* (Carvedilol*) 6.25 Mg Tablet, 6.25 MG PO BID, #60 TAB 18 Calcium Acetate* (Calcium Acetate*) 667 Mg Capsule, 1334 MG PO WITH MEALS, #60 CAP 11/19/17 Benazepril Hcl* (Benazepril Hcl*) 40 Mg Tablet, 40 MG PO DAILY, #30 TAB 11/19/17 Aspirin (Low Dose Aspirin) 81 Mg Tablet.dr, 81 MG PO DAILY, #30 TAB 11/19/17 Allergies Allergies: Coded Allergies: No Known Allergy (Unverified , 04/15/18) PMhx/Soc History of Surgery: Yes (left av fistula) Anesthesia Reaction: No Hx Neurological Disorder: No Hx Respiratory Disorders: No Hx Cardiac Disorders: No Hx Psychiatric Problems: No Hx Miscellaneous Medical Probl: Yes (HTN ESRD, dialysis 3x/week) Hx Alcohol Use: No Hx Substance Use: No Hx Tobacco Use: No Physical Exam Vitals Vital Signs Date Temp Pulse Resp B/P (MAP) Pulse Ox O2 O2 Flow FiO2 Time Delivery Rate 11/29/18 62 15 161/80 100 Room Air 02:56 (107) 11/29/18 70 16 98 21 02:37 11/29/18 65 20 164/83 20 Room Air 01:17 (110) 11/28/18 98.0 66 18 246/112 99 21:34 (156) Physical Exam Const: No acute distress. Head: Atraumatic. Eyes: Normal Conjunctiva. ENT: Normal External Ears, Nose and Mouth. Neck: Full range of motion. No meningismus. Resp: Clear to auscultation bilaterally. Cardio: Regular rate and rhythm. Abd: Soft, non distended, normal bowel sounds, diffuse abdominal tenderness, no rigidity/rebound/CVA tenderness Skin: No petechiae or rashes. Back: No midline or flank tenderness. Ext: No cyanosis, or mild ble edema. Neur: Awake and alert. No focal deficit Psych: Normal Mood and Affect. Result Diagram: 11/29/18 0004 11/29/18 0004 Results 24 hrs Laboratory Tests Test 11/29/18 00:04 11/29/18 02:40 White Blood Count 9.3 10^3/ul Red Blood Count 3.17 10^6/ul Hemoglobin 10.1 g/dl Hematocrit 30.4 % Mean Corpuscular Volume 95.9 fl Mean Corpuscular Hemoglobin 31.9 pg Mean Corpuscular Hemoglobin Concent 33.2 g/dl Red Cell Distribution Width 13.1 % Platelet Count 181 10^3/UL Mean Platelet Volume 12.1 fl Immature Granulocytes % 1.000 % Neutrophils % 75.4 % Lymphocytes % 12.0 % Monocytes % 8.5 % Eosinophils % 2.7 % Basophils % 0.4 % Nucleated Red Blood Cells % 0.0 /100WBC Immature Granulocytes # 0.090 10^3/ul Neutrophils # 7.1 10^3/ul Lymphocytes # 1.1 10^3/ul Monocytes # 0.8 10^3/ul Eosinophils # 0.3 10^3/ul Basophils # 0.0 10^3/ul Nucleated Red Blood Cells # 0.0 10^3/ul Sodium Level 134 mmol/L Potassium Level 6.7 mmol/L Chloride Level 93 mmol/L Carbon Dioxide Level 22 mmol/L Anion Gap 19 Blood Urea Nitrogen 71 mg/dl Creatinine 9.69 mg/dl Est Glomerular Filtrat Rate mL/min 4 mL/min Glucose Level 235 mg/dl Calcium Level 8.0 mg/dl Total Bilirubin 0.2 mg/dl Direct Bilirubin 0.00 mg/dl Indirect Bilirubin 0.2 mg/dl Aspartate Amino Transf (AST/SGOT) 25 IU/L Alanine Aminotransferase (ALT/SGPT) 25 IU/L Alkaline Phosphatase 107 IU/L Total Protein 8.3 g/dl Albumin 4.3 g/dl Globulin 4.00 g/dl Albumin/Globulin Ratio 1.07 Lipase 79 U/L Bedside Glucose 214 mg/dL Current Medications Medications Dose Sig/Aries Start Time Status Last (Trade) Ordered Route PRN Stop Time Admin Dose Reason Admin Morphine 2 mg ONCE STAT 11/29/18 DC 11/29/18 Sulfate IV 00:04 00:23 (morphine) 11/29/18 00:19 Ondansetron 4 mg ONCE STAT 11/29/18 DC 11/29/18 HCl (Zofran IV 00:04 00:23 Inj) 11/29/18 00:19 250 ml @ 0 TITRATE IV 11/29/18 11/29/18 Nitroglycerin mls/hr 00:30 00:38 / Dextrose Sodium 30 gm ONCE STAT 11/29/18 DC Polystyrene PO 01:04 Sulfonate 11/29/18 01:07 (Kayexelate 15 Gm Kit (Powder+Sorbi hari)) Albuterol 15 mg ONCE STAT 11/29/18 DC 11/29/18 (Proventil INH 01:04 02:37 0.5% (Neb)) 11/29/18 01:07 Insulin 10 unit ONCE STAT 11/29/18 DC 11/29/18 Human IVP 01:04 02:44 Regular 11/29/18 01:07 (Humulin R) Dextrose ONCE PRN 11/29/18 (D50w IV DECREASED 01:30 Syringe) GLUCOSE Dextrose 50 ml ONCE ONCE 11/29/18 DC 11/29/18 (D50w IV 01:30 02:45 Syringe) 11/29/18 01:31 Procedures/MDM [place] [address] Radiology Main Line: [phone] DIAGNOSTIC IMAGING REPORT Patient: BISHNU PHIPPS : 1955 Age: 63 Sex: F [id number] DOS: 11/29/18 0004 Ordering MD: MARLON ABREU MD Location: E/R Room/Bed: PROCEDURE: CT ABDOMEN AND PELVIS WITHOUT CONTRAST CLINICAL INDICATION: 63 arrow female. Severe abdominal pain with nausea, vomiting and diarrhea for 1 [address] TECHNIQUE: CT scan of the abdomen and pelvis without contrast was performed on a multi-slice CT scanner utilizing axial imaging from the lung bases through the pubis symphysis. One or more the following does reduction techniques were utilized: Automated exposure control, adjustment of the mA/ or kV according to patient's size, or use of iterative reconstruction technique. Sagittal and coronal reformatted images were made. DICOM images are available for review. The CTDIvol = 21.18 mGy. DLP = 13 10.62 mGy.cm. COMPARISON: None. FINDINGS: CT abdomen Visualized lung bases: Minimal subsegmental atelectasis right middle lobe. Band- like subsegmental atelectasis posterior lingula. Pleural thickening lateral right lower lobe. No significant pleural effusion. Minimal pericardial effusion. Liver: Limited evaluation without IV contrast. No gross lesion. Gallbladder and bile ducts: Small faintly calcified gallstones are present within the gallbladder. No pericholecystic fluid. No biliary ductal dilatation. Spleen: Normal appearance. Pancreas: Mild atrophy. No mass, ductal dilatation or peripancreatic stranding. Adrenal glands: Normal appearance. Kidneys: No hydronephrosis or renal stones. Vasculature: No abdominal aortic aneurysm. Calcified plaque present. Negative IVC. Lymph nodes: No adenopathy. GI: No hiatal hernia. Surgical clips at the left posterior lateral gastroes ophageal junction. No evidence of obstruction or bowel wall thickening. Peritoneal cavity: No free fluid or free air. CT pelvis GI: Negative terminal ileum. Negative appendix. Negative sigmoid colon. Negative rectum. : Normal appearing distal ureters and urinary bladder. Negative uterus and ovaries. Peritoneal cavity: No free fluid or loculated fluid collections. Lymph nodes: No adenopathy by size criteria. Prominent distal left and right external iliac chain lymph nodes. Osseous structures: No lytic or blastic lesions. No endplate fractures. Narrowed L5-S1 disc space. IMPRESSION: 1. Cholelithiasis. No CT evidence of acute cholecystitis. 2. Surgical clip adjacent to the gastroesophageal junction. 3. No evidence of obstruction or bowel wall thickening. No free fluid in the peritoneal cavity. RPTAT: HLRS Physician Radha Date Time Electronically viewed and signed by [place] Physician on 11/29/2018 01:14 RS/ CC: MARLON ABREU MD [id number] [place] [address] Radiology Main Line: [phone] DIAGNOSTIC IMAGING REPORT Patient: BISHNU PHIPPS : 1955 Age: 63 Sex: F MR #: [id number] DOS: 11/29/18 0000 Ordering MD: MARLON ABREU MD Location: E/R Room/Bed: PROCEDURE: One view chest radiograph. CLINICAL INDICATION: Abdominal pain TECHNIQUE: An AP view of the chest was obtained. COMPARISON: CR CHEST 07/30/2016; CR CHEST 07/24/2016; CR CHEST 07/17/2016 FINDINGS: Mediastinum: The left-sided dialysis catheter previously present with the tip in the right atrium has been removed. Heart size: Mildly enlarged, stable Pulmonary vasculature: No visible engorgement. Lungs: Clear. Costophrenic sulci: Clear. Bony structures: Grossly unremarkable for age. IMPRESSION: 1. Stable mild cardiomegaly without evidence of overt congestive failure or pneumonia. RPTAT:AAJJ Physician Aric Date Time Electronically viewed and signed by [place] Physician on 11/29/2018 00:55 GW/ CC: MARLON ABREU MD [id number] MEDICAL MAKING DECISION: The patient is a 63-year-old female, presenting with acute hypertensive emergency, acute fluid overload, acute hyperkalemia, acute biliary colic She was treated with nitroglycerin drip for acute hypertensive emergency, morphine 2 mg IV for pain, Zofran 4 mg IV for nausea, 1 amp of D50 IV/10 units of regular insulin IV/Kayexalate 30 g p.o., albuterol 15 mg nebulizer for acute hyperkalemia with good response. The differential diagnoses considered include but are not limited to CHF, ACS, cholelithiasis, cholecystitis, choledocholithiasis, cholangitis, pancreatitis, hepatitis, gastritis, peptic ulcer disease, gastric ulcer, appendicitis, cystitis, diverticulitis, partial small bowel obstruction. Critical Care: Time: 35 minutes excluding all billable procedures. Treatments/Evaluations: Close monitoring and treatment of unstable vital signs, cardiorespiratory, and neurologic status, while maintaining tight balance of fluid, respiratory, and cardiac interventions. Departure Diagnosis: Primary Impression: Hypertensive emergency Additional Impressions: Fluid overload Hyperkalemia Biliary colic Anemia Condition: Critical Comments Consultation: I notify her hammerer tab Dr. Mosquera via [employer] at 1:30am I discussed the findings with the patient. I notified the patient with Dr. Hwang in at 1:40 AM via [employer], who was made aware of the lab, the treatment, the patient condition. The patient is admitted to ICU Disclaimer: Inadvertent spelling and grammatical errors are likely due to EHR/dictation software use and do not reflect on the overall quality of patient care. Also, please note that the electronic time recorded on this note does not necessarily reflect the actual time of the patient encounter. MARLON ABREU MD Nov 28, 2018 23:31
[2018-11-29] VITALS (62 sets, daily range): BP systolic 132–188; BP diastolic 52–115; PULSE 58–83; RESP 10–32; Ht 162.6 cm; Wt 97.5 kg
[2018-11-29] MEDS ORDERED: ONDANSETRON 4 MG INJ IV STA (00:04)
[2018-11-29] MEDS ORDERED: morphine 2 MG INJ IV STA ×2 (00:04→16:43)
[2018-11-29] MEDS: NITROGLYCERIN 50 MG/D5W (PMX) 250 ML IV SCH ×6 (00:38→22:57)
[2018-11-29] MEDS ORDERED: INSULIN REGULAR, HUMAN 100 UNIT/1 ML 3ML VIAL IVP STA (01:04)
[2018-11-29] MEDS ORDERED: ALBUTEROL 0.5% (NEB) 2.5 MG/0.5 ML AMP INH STA (01:04)
[2018-11-29] MEDS ORDERED: SODIUM POLYSTYRENE 15 GM KIT (POWDER + SORBITOL) PO STA (01:04)
[2018-11-29] MEDS ORDERED: DEXTROSE 50% 50 ML SYRINGE IV PRN ×3 (01:30→13:00)
[2018-11-29] MEDS ORDERED: DEXTROSE 50% 50 ML SYRINGE IV ONE (01:30)
--- NOTE | 2018-11-29 02:14 | HP ---
Date/Time of Note Date/Time of Note DATE: 11/29/18 TIME: 02:13 Assessment/Plan VTE Prophylaxis Pharmacological prophylaxis: apixaban Lines/Catheters [facility] Saline Lock Assessment/Plan Hospital Course This is a 63 female being admitted to the ICU floor for: #1 hypertensive emergency -SBP in the 240s on arrival patient was started on nitro drip which subsequently did stabilize patient's blood pressures. -Resume patient's home blood pressure medications once we will titrate off the drip. #2 hyperkalemia: Secondary to missed HD. Patient did receive treatment with insulin, dextrose, Kayexalate in the emergency department. Will give a dose of calcium gluconate. #3 Nausea and vomiting: Secondary to missed dialysis we will treat hyperkalemia as per above. Consult nephrology for urgent dialysis in the a.m. Nitro drip for control of blood pressures. #4 end-stage renal disease on hemodialysis with hyperkalemia -Nephrology consulted, for emergent dialysis. -Left-sided AV fistula. #5 paroxysmal atrial fibrillation -Currently normal sinus rhythm, continue carvedilol, she also has metoprolol which we will need to confirm whether she is actually taking -On aspirin -Continue Eliquis #6 diabetes mellitus -Last hemoglobin A1c 8.9. Resume patient's home insulin regimen, titrate as indicated #7 hypothyroidism -Continue home dose levothyroxine #8 peripheral neuropathy -Continue home dose gabapentin #9 DVT GI prophylaxis: Eliquis, Protonix Greater than 35 minutes critical time spent on the care met with patient. Further treatment strategy will be implemented as per the clinical course. Result Diagram: 11/29/18 0004 11/29/18 0004 Results 24hrs Laboratory Tests Test 11/29/18 00:04 White Blood Count 9.3 Red Blood Count 3.17 L Hemoglobin 10.1 L Hematocrit 30.4 L Mean Corpuscular Volume 95.9 Mean Corpuscular Hemoglobin 31.9 Mean Corpuscular Hemoglobin Concent 33.2 Red Cell Distribution Width 13.1 Platelet Count 181 Mean Platelet Volume 12.1 H Immature Granulocytes % 1.000 H Neutrophils % 75.4 Lymphocytes % 12.0 L Monocytes % 8.5 Eosinophils % 2.7 Basophils % 0.4 Nucleated Red Blood Cells % 0.0 Immature Granulocytes # 0.090 H Neutrophils # 7.1 Lymphocytes # 1.1 Monocytes # 0.8 Eosinophils # 0.3 Basophils # 0.0 Nucleated Red Blood Cells # 0.0 Sodium Level 134 L Potassium Level 6.7 *H Chloride Level 93 L Carbon Dioxide Level 22 Anion Gap 19 H Blood Urea Nitrogen 71 H Creatinine 9.69 H Est Glomerular Filtrat Rate mL/min 4 L Glucose Level 235 H Calcium Level 8.0 L Total Bilirubin 0.2 Direct Bilirubin 0.00 Indirect Bilirubin 0.2 Aspartate Amino Transf (AST/SGOT) 25 Alanine Aminotransferase (ALT/SGPT) 25 Alkaline Phosphatase 107 Total Protein 8.3 H Albumin 4.3 Globulin 4.00 H Albumin/Globulin Ratio 1.07 Lipase 79 HPI/ROS Admit Date/Time Admit Date/Time Hx of Present Illness Chief complaint: Abdominal pain, missed dialysis nausea vomiting The patient is a 63-year-old female with a history of end-stage renal disease on hemodialysis, paroxysmal A. fib, hypertension, anemia, diabetes mellitus on insulin presenting to the ER because of abdominal pain intermittently for the last 2 days, had similar symptom previously, complains of vomiting and diarrhea. She states that she missed her dialysis session on for no specific reason. She presented to the [facility] emergency department with blood pressures in the systolic 240. She was started on a nitro drip which did subsequently resulted in improvement of her hypertension. She was also noted to be hyperkalemic at 6.7 and she received albuterol, insulin, dextrose, kaexylate. Allergies: NKDA Medications: See Jul Const: As per HPI Eyes : No pain discharge or redness or change in visual acuity ENT: No pain, sore throat, congestion, congestion, dysphagia or discharge Respiratory: No shortness of breath, cough, sputum, wheezing, or pleuritic pain Cardiovascular: No chest pain, palpitation, PND, or edema GI : no change in appetite, abdominal pain, nausea, vomiting, diarrhea, constipation, or change in the color his stool Genitourinary: No dysuria, hematuria, flank pain , discharge or CVA tenderness Musculoskeletal: No joint pain, back pain, neck pain, restricted range of motion in neck or joints Skin: No rash, bruising or hives Neuro: No headache, dizziness, syncope, seizure, focal weakness Endocrine: No polyuria, polydipsia, temperature intolerance Psych: No hallucination, depression, anxiety or suicidal ideation ENT: other PMH/Family/Social Past Medical History end-stage renal disease on hemodialysis, paroxysmal A. fib, hypertension, anemia, diabetes mellitus on insulin, cataracts Medications Current Medications Nitroglycerin/ Dextrose 250 ml @ 0 mls/hr TITRATE IV Last administered on 11/29/18at 00:38; Admin Dose 1.5 MLS/HR; Start 11/29/18 at 00:30 Dextrose (D50w Syringe) ONCE PRN IV DECREASED GLUCOSE; Start 11/29/18 at 01:30 Coded Allergies: No Known Allergy (Unverified , 11/29/18) Past Surgical History Left upper extremity AV fistula, left cataract surgery Family History Significant Family History: no pertinent family hx Social History Alcohol Use: none Smoking Status: Never smoker Drug Use: none Exam/Review of Systems Vital Signs Vitals Vital Signs Date Temp Pulse Resp B/P (MAP) Pulse Ox O2 O2 Flow FiO2 Time Delivery Rate 11/29/18 65 20 164/83 20 Room Air 01:17 (110) 11/28/18 98.0 21:34 Exam Exam General: Patient currently lying in bed in no acute distress, her blood pressure is improved on nitro drip HEENT: Atraumatic, normocephalic. The pupils are equal, round and reactive. Extraocular motor are intact, right-sided cataract Neck: Supple with full range of motion. No rigidity or meningismus Chest: Nontender Lungs: Clear to auscultation bilaterally no crackles rales or wheezing Heart: Normal S1-S2, Regular rhythm and rate. No murmur, S3, or S4 Abdomen: Soft , nontender, nondistended , bowel sounds are present. No guarding no rebound tenderness , No masses or organomegaly. No costovertebral temporal angle mass Extremities: Left upper extremity AV fistula Neurologic: Normal mental status, speech normal, cranial nerves II through XII are intact, motor and sensory are intact, Additional Comments EKG: Rate/Rhythm: Normal Sinus Rhythm 73 beats/min QRS, ST, T-waves: No ST elevation, minimal ST depression in anterior leg Impression: Abnormal EKG PROCEDURE: CT ABDOMEN AND PELVIS WITHOUT CONTRAST CLINICAL INDICATION: 63 arrow female. Severe abdominal pain with nausea, vomiting and diarrhea for 1 [address] TECHNIQUE: CT scan of the abdomen and pelvis without contrast was performed on a multi-slice CT scanner utilizing axial imaging from the lung bases through the pubis symphysis. One or more the following does reduction techniques were ut ilized: Automated exposure control, adjustment of the mA/ or kV according to patient's size, or use of iterative reconstruction technique. Sagittal and coronal reformatted images were made. DICOM images are available for review. The CTDIvol = 21.18 mGy. DLP = 13 10.62 mGy.cm. COMPARISON: None. FINDINGS: CT abdomen Visualized lung bases: Minimal subsegmental atelectasis right middle lobe. Band- like subsegmental atelectasis posterior lingula. Pleural thickening lateral right lower lobe. No significant pleural effusion. Minimal pericardial effusion. Liver: Limited evaluation without IV contrast. No gross lesion. Gallbladder and bile ducts: Small faintly calcified gallstones are present within the gallbladder. No pericholecystic fluid. No biliary ductal dilatation. Spleen: Normal appearance. Pancreas: Mild atrophy. No mass, ductal dilatation or peripancreatic stranding. Adrenal glands: Normal appearance. Kidneys: No hydronephrosis or renal stones. Vasculature: No abdominal aortic aneurysm. Calcified plaque present. Negative IVC. Lymph nodes: No adenopathy. GI: No hiatal hernia. Surgical clips at the left posterior lateral gastroesophageal junction. No evidence of obstruction or bowel wall thickening. Peritoneal cavity: No free fluid or free air. CT pelvis GI: Negative terminal ileum. Negative appendix. Negative sigmoid colon. Negativ e rectum. : Normal appearing distal ureters and urinary bladder. Negative uterus and ovaries. Peritoneal cavity: No free fluid or loculated fluid collections. Lymph nodes: No adenopathy by size criteria. Prominent distal left and right external iliac chain lymph nodes. Osseous structures: No lytic or blastic lesions. No endplate fractures. Narrowed L5-S1 disc space. IMPRESSION: 1. Cholelithiasis. No CT evidence of acute cholecystitis. 2. Surgical clip adjacent to the gastroesophageal junction. 3. No evidence of obstruction or bowel wall thickening. No free fluid in the peritoneal cavity. RPTAT: HLRS Physician Radha Date Time Electronically viewed and signed by Physician Radha on 11/29/2018 01:14 RS/ CC: MARLON ABREU MD [id number] PROCEDURE: One view chest radiograph. CLINICAL INDICATION: Abdominal pain TECHNIQUE: An AP view of the chest was obtained. COMPARISON: CR CHEST 07/30/2016; CR CHEST 07/24/2016; CR CHEST 07/17/2016 FINDINGS: Mediastinum: The left-sided dialysis catheter previously present with the tip in the right atrium has been removed. Heart size: Mildly enlarged, stable Pulmonary vasculature: No visible engorgement. Lungs: Clear. Costophrenic sulci: Clear. Bony structures: Grossly unremarkable for age. IMPRESSION: 1. Stable mild cardiomegaly without evidence of overt congestive failure or pneumonia. RPTAT:AAJJ Physician Aric Date Time Electronically viewed and signed by Stephanie Nj Physician on 11/29/2018 00:55 GW/ CC: MARLON ABREU MD [id number] GWEN ISABEL Nov 29, 2018 02:14
[2018-11-29] MEDS ORDERED: HEPARIN 5,000 UNIT/1 ML VIAL SC SCH (08:30)
[2018-11-29] MEDS ORDERED: DOCUSATE SODIUM 100 MG CAP PO PRN (08:30)
[2018-11-29] MEDS ORDERED: ACETAMINOPHEN 650MG/20.3ML CUP PO PRN (08:30)
[2018-11-29] MEDS ORDERED: BISACODYL (EC) 5 MG TAB PO PRN (08:30)
[2018-11-29] MEDS ORDERED: CALCIUM GLUCONATE 10% 1 GM in DEXTROSE 5% 100 ML IVPB ONE (09:00)
[2018-11-29] MEDS: CALCIUM ACETATE 667 MG CAP PO SCH ×2 (11:41→17:35)
[2018-11-29] MEDS: FAMOTIDINE 20 MG TAB PO SCH (11:41)
[2018-11-29] MEDS: APIXABAN 5 MG TABLET PO SCH ×2 (11:41→20:15)
[2018-11-29] MEDS: ASPIRIN (EC) 81 MG TAB PO SCH (11:41)
[2018-11-29] MEDS: PYRIDOXINE 50 MG TAB PO SCH (11:41)
[2018-11-29] MEDS: PANTOPRAZOLE (EC) 40 MG TAB PO SCH (11:42)
[2018-11-29] MEDS: PENTOXIFYLLINE (SR) 400 MG TAB PO SCH (11:42)
[2018-11-29] MEDS: NYSTATIN 15 GM CR TOP SCH ×2 (12:54→20:24)
[2018-11-29] MEDS ORDERED: GLUCOSE GEL 15 GRAM TUBE PO PRN ×2 (13:00)
[2018-11-29] MEDS ORDERED: GLUCOSE GEL 15 GRAM TUBE BUCCAL PRN (13:00)
[2018-11-29] MEDS ORDERED: GLUCAGON 1 MG INJ IM PRN (13:00)
--- NOTE | 2018-11-29 13:00 | PN ---
Date/Time of Note Date/Time of Note DATE: 11/29/18 TIME: 12:56 Assessment/Plan VTE Prophylaxis Pharmacological prophylaxis: apixaban Lines/Catheters IV Catheter Type (from [facility]): Saline Lock Assessment/Plan Hospital Course #1 hypertensive emergency-BP now improved -SBP in the 240s on arrival patient was started on nitro drip which subsequently did stabilize patient's blood pressures. -Continue patient's home blood pressure medications #2 End-stage renal disease with uremia and hyperkalemia: Secondary to missed HD. -Patient did receive treatment with insulin, dextrose, Kayexalate in the emergency department status post dose of calcium gluconate -Dialysis per renal, patient did receive dialysis today with -Left-sided AV fistula. #3 nausea and vomiting likely secondary to missed dialysis Dialysis today Zofran as needed #4 Diabetes -Last hemoglobin A1c 8.9. Resume patient's home insulin regimen, titrate as indicated #5 paroxysmal atrial fibrillation -Currently normal sinus rhythm, continue carvedilol, she also has metoprolol which we will need to confirm whether she is actually taking -On aspirin -Continue Eliquis #6 morbid obesity -Lifestyle changes #7 hypothyroidism -Continue home dose levothyroxine #8 peripheral neuropathy -Continue home dose gabapentin #9 DVT GI prophylaxis: Eliquis, Protonix DC planning: Anticipate DC home tomorrow Result Diagram: 11/29/18 0004 11/29/18 0520 Results 24hrs Laboratory Tests Test 11/29/18 00:04 11/29/18 02:40 11/29/18 03:30 11/29/18 03:33 White Blood Count 9.3 Red Blood Count 3.17 L Hemoglobin 10.1 L Hematocrit 30.4 L Mean Corpuscular 95.9 Volume Mean Corpuscular 31.9 Hemoglobin Mean Corpuscular 33.2 Hemoglobin Concent Red Cell 13.1 Distribution Width Platelet Count 181 Mean Platelet Volume 12.1 H Immature 1.000 H Granulocytes % Neutrophils % 75.4 Lymphocytes % 12.0 L Monocytes % 8.5 Eosinophils % 2.7 Basophils % 0.4 Nucleated Red Blood 0.0 Cells % Immature 0.090 H Granulocytes # Neutrophils # 7.1 Lymphocytes # 1.1 Monocytes # 0.8 Eosinophils # 0.3 Basophils # 0.0 Nucleated Red Blood 0.0 Cells # Sodium Level 134 L 132 L Potassium Level 6.7 *H 5.3 H Chloride Level 93 L 93 L Carbon Dioxide Level 22 22 Anion Gap 19 H 17 H Blood Urea Nitrogen 71 H 73 H Creatinine 9.69 H 9.71 H Est Glomerular 4 L 4 L Filtrat Rate mL/min Glucose Level 235 H 269 H Calcium Level 8.0 L 7.5 L Total Bilirubin 0.2 0.2 Direct Bilirubin 0.00 0.00 Indirect Bilirubin 0.2 0.2 Aspartate Amino 25 18 Transf (AST/SGOT) Alanine 25 22 Aminotransferase (AL T/SGPT) Alkaline Phosphatase 107 76 Total Protein 8.3 H 7.2 # Albumin 4.3 3.7 Globulin 4.00 H 3.50 H Albumin/Globulin 1.07 1.05 Ratio Lipase 79 Bedside Glucose 214 283 H Test 11/29/18 05:19 11/29/18 05:20 Hemoglobin A1c 9.6 H Hepatitis B Surface NEGATIVE Antigen Sodium Level 135 Potassium Level 5.1 Chloride Level 95 L Carbon Dioxide Level 23 Anion Gap 17 H Blood Urea Nitrogen 75 H Creatinine 9.64 H Est Glomerular 4 L Filtrat Rate mL/min Glucose Level 219 Calcium Level 7.5 L Total Bilirubin 0.2 Direct Bilirubin 0.00 Indirect Bilirubin 0.2 Aspartate Amino 17 Transf (AST/SGOT) Alanine 21 Aminotransferase (AL T/SGPT) Alkaline Phosphatase 79 Total Protein 7.0 Albumin 3.6 Globulin 3.40 H Albumin/Globulin 1.05 Ratio Subjective 24 Hr Interval Summary Gastrointestinal: pain Exam/Review of Systems Exam Vitals Vital Signs Date Temp Pulse Resp B/P (MAP) Pulse Ox O2 O2 Flow FiO2 Time Delivery Rate 11/29/18 58 12:10 11/29/18 11 160/70 99 Room Air 11:00 (100) 11/29/18 98.0 08:52 11/29/18 21 02:37 Constitutional: alert, oriented Respiratory: clear to auscultation Cardiovascular: regular rate and rhythm Gastrointestinal: soft; No distended Musculoskeletal: nl extremities to inspection Results Results 24hrs Laboratory Tests Test 11/29/18 00:04 11/29/18 02:40 11/29/18 03:30 11/29/18 03:33 White Blood Count 9.3 Red Blood Count 3.17 L Hemoglobin 10.1 L Hematocrit 30.4 L Mean Corpuscular 95.9 Volume Mean Corpuscular 31.9 Hemoglobin Mean Corpuscular 33.2 Hemoglobin Concent Red Cell 13.1 Distribution Width Platelet Count 181 Mean Platelet Volume 12.1 H Immature 1.000 H Granulocytes % Neutrophils % 75.4 Lymphocytes % 12.0 L Monocytes % 8.5 Eosinophils % 2.7 Basophils % 0.4 Nucleated Red Blood 0.0 Cells % Immature 0.090 H Granulocytes # Neutrophils # 7.1 Lymphocytes # 1.1 Monocytes # 0.8 Eosinophils # 0.3 Basophils # 0.0 Nucleated Red Blood 0.0 Cells # Sodium Level 134 L 132 L Potassium Level 6.7 *H 5.3 H Chloride Level 93 L 93 L Carbon Dioxide Level 22 22 Anion Gap 19 H 17 H Blood Urea Nitrogen 71 H 73 H Creatinine 9.69 H 9.71 H Est Glomerular 4 L 4 L Filtrat Rate mL/min Glucose Level 235 H 269 H Calcium Level 8.0 L 7.5 L Total Bilirubin 0.2 0.2 Direct Bilirubin 0.00 0.00 Indirect Bilirubin 0.2 0.2 Aspartate Amino 25 18 Transf (AST/SGOT) Alanine 25 22 Aminotransferase (AL T/SGPT) Alkaline Phosphatase 107 76 Total Protein 8.3 H 7.2 # Albumin 4.3 3.7 Globulin 4.00 H 3.50 H Albumin/Globulin 1.07 1.05 Ratio Lipase 79 Bedside Glucose 214 283 H Test 11/29/18 05:19 11/29/18 05:20 Hemoglobin A1c 9.6 H Hepatitis B Surface NEGATIVE Antigen Sodium Level 135 Potassium Level 5.1 Chloride Level 95 L Carbon Dioxide Level 23 Anion Gap 17 H Blood Urea Nitrogen 75 H Creatinine 9.64 H Est Glomerular 4 L Filtrat Rate mL/min Glucose Level 219 Calcium Level 7.5 L Total Bilirubin 0.2 Direct Bilirubin 0.00 Indirect Bilirubin 0.2 Aspartate Amino 17 Transf (AST/SGOT) Alanine 21 Aminotransferase (AL T/SGPT) Alkaline Phosphatase 79 Total Protein 7.0 Albumin 3.6 Globulin 3.40 H Albumin/Globulin 1.05 Ratio Medications Medication Current Medications Nitroglycerin/ Dextrose 250 ml @ 0 mls/hr TITRATE IV Last administered on 11/29/18at 12:50; Admin Dose 48 MLS/HR; Start 11/29/18 at 00:30 Dextrose (D50w Syringe) ONCE PRN IV DECREASED GLUCOSE; Start 11/29/18 at 01:30 Ondansetron HCl (Zofran Inj) 4 mg Q6H PRN IV NAUSEA AND/OR VOMITING; Start 11/29/18 at 08:30 Acetaminophen (Tylenol Liquid) 650 mg Q6H PRN PO PAIN LEVEL 1-3 OR FEVER; Start 11/29/18 at 08:30 Docusate Sodium (Colace) 100 mg Q12H PRN PO CONSTIPATION; Start 11/29/18 at 08:30 Bisacodyl (Dulcolax) 5 mg DAILY PRN PO CONSTIPATION; Start 11/29/18 at 08:30 Famotidine (Pepcid) 20 mg DAILY PO Last administered on 11/29/18 11:41; Admin Dose 20 MG; Start 11/29/18 at 09:00 Apixaban (Eliquis) 5 mg BID PO Last administered on 11/29/18 11:41; Admin Dose 5 MG; Start 11/29/18 at 09:00 Aspirin (Halfprin) 81 mg DAILY PO Last administered on 11/29/18 11:41; Admin Dose 81 MG; Start 11/29/18 at 09:00 Benazepril HCl (Lotensin) 40 mg DAILY PO ; Start 11/29/18 at 09:00; Status Hold Calcium Acetate (Phoslo) 1,334 mg WITH MEALS PO Last administered on 11/29/18 11:41; Admin Dose 1,334 MG; Start 11/29/18 at 11:30 Carvedilol (Coreg) 6.25 mg BID PO ; Start 11/29/18 at 09:00; Status Hold Levothyroxine Sodium (Synthroid) 125 mcg BEFORE BREAKFAST PO ; Start 11/30/18 at 07:00 Nifedipine (Procardia Xl) 60 mg BID PO ; Start 11/29/18 at 09:00; Status Hold Pantoprazole (Protonix Tab) 40 mg DAILY PO Last administered on 11/29/18 11:42; Admin Dose 40 MG; Start 11/29/18 at 09:00 Pentoxifylline (Trental) 400 mg DAILY PO Last administered on 11/29/18 11:42; Admin Dose 400 MG; Start 11/29/18 at 09:00 Pyridoxine HCl (Vitamin B6) 50 mg DAILY PO Last administered on 11/29/18 11:41; Admin Dose 50 MG; Start 11/29/18 at 09:00 Miscellaneous Information 5 unit BID SQ ; Start 11/29/18 at 09:00; Status UNV Nystatin (Nystatin Cr) 1 applic BID TOP Last administered on 11/29/18at 12:54; Admin Dose 1 APPLIC; Start 11/29/18 at 12:00 NATALIA PICKERING Nov 29, 2018 13:00
[2018-11-29] MEDS: ONDANSETRON 4 MG INJ IV PRN ×2 (15:04→20:15)
--- NOTE | 2018-11-29 16:15 | QN ---
Documentation Comment pt seen and examined JODI RODRÍGUEZ MD Nov 29, 2018 16:15
[2018-11-29] MEDS ORDERED: morphine 2 MG INJ IV PRN (17:00)
[2018-11-29] MEDS: INSULIN ASPART [NOVOLOG] 3 ML PEN SC SCH ×3 (17:39→20:27)
[2018-11-29] MEDS: HYDROCODONE/APAP (5/325) TAB PO PRN (20:23)
[2018-11-29] MEDS: NIFEdipine (XL) 60 MG TAB PO SCH (21:03)
[2018-11-29] MEDS ORDERED: hydrALAzine 20 MG INJ IV PRN (23:30)
[2018-11-30] VITALS (34 sets, daily range): BP systolic 96–147; BP diastolic 39–74; PULSE 57–69; RESP 10–29
[2018-11-30] MEDS: NITROGLYCERIN 50 MG/D5W (PMX) 250 ML IV SCH (01:21)
[2018-11-30] MEDS: ACCU-CHEK XX SCH (01:21)
[2018-11-30] MEDS: INSULIN ASPART [NOVOLOG] 3 ML PEN SC SCH ×6 (07:35→20:41)
[2018-11-30] MEDS: NIFEdipine (XL) 60 MG TAB PO SCH ×2 (08:17→20:41)
[2018-11-30] MEDS: FAMOTIDINE 20 MG TAB PO SCH (08:17)
[2018-11-30] MEDS: APIXABAN 5 MG TABLET PO SCH ×2 (08:17→20:40)
[2018-11-30] MEDS: ASPIRIN (EC) 81 MG TAB PO SCH (08:17)
[2018-11-30] MEDS: PENTOXIFYLLINE (SR) 400 MG TAB PO SCH (08:17)
[2018-11-30] MEDS: PANTOPRAZOLE (EC) 40 MG TAB PO SCH (08:17)
[2018-11-30] MEDS: CALCIUM ACETATE 667 MG CAP PO SCH ×3 (08:17→17:46)
[2018-11-30] MEDS: PYRIDOXINE 50 MG TAB PO SCH (08:17)
[2018-11-30] MEDS: BENAZEPRIL 40 MG TAB PO SCH (08:19)
[2018-11-30] MEDS: NYSTATIN 15 GM CR TOP SCH ×2 (08:20→22:56)
[2018-11-30] MEDS: LEVOTHYROXINE 125 MCG TAB PO SCH (10:24)
[2018-11-30] MEDS: ONDANSETRON 4 MG INJ IV PRN (12:24)
--- NOTE | 2018-11-30 14:23 | PN ---
Date/Time of Note Date/Time of Note DATE: 11/30/18 TIME: 14:22 Assessment/Plan VTE Prophylaxis Risk score (from Ns)>0 risk: 3 SCD applied (from Nsg): Yes Pharmacological prophylaxis: apixaban Lines/Catheters IV Catheter Type (from Nrsg): Peripheral IV Urinary Cath still in place: No Assessment/Plan Hospital Course #1 hypertensive emergency-BP now improved -SBP in the 240s on arrival patient was started on nitro drip which subsequently did stabilize patient's blood pressures. -Continue patient's home blood pressure medications #2 End-stage renal disease with uremia and hyperkalemia: Secondary to missed HD. -Patient did receive treatment with insulin, dextrose, Kayexalate in the emergency department status post dose of calcium gluconate -Dialysis per renal, patient did receive dialysis today with -Left-sided AV fistula. #3 nausea and vomiting likely secondary to missed dialysis Patient with persistent symptoms No reported diarrhea Zofran as needed #4 Diabetes -Last hemoglobin A1c 8.9. Resume patient's home insulin regimen, titrate as indicated #5 paroxysmal atrial fibrillation -Currently normal sinus rhythm, continue carvedilol, she also has metoprolol which we will need to confirm whether she is actually taking -On aspirin -Continue Eliquis #6 morbid obesity -Lifestyle changes #7 hypothyroidism -Continue home dose levothyroxine #8 peripheral neuropathy -Continue home dose gabapentin #9 DVT GI prophylaxis: Eliquis, Protonix DC planning: Patient with persistent nausea and vomiting, anticipate DC home tomorrow if symptoms improve Result Diagram: 11/29/18 0004 11/30/18 0421 Results 24hrs Laboratory Tests Test 11/29/18 17:34 11/29/18 20:22 11/30/18 04:21 11/30/18 08:14 Bedside Glucose 175 190 128 Sodium Level 131 L Potassium Level 5.2 H Chloride Level 92 L Carbon Dioxide Level 27 Anion Gap 12 Blood Urea Nitrogen 36 #H Creatinine 6.55 #H Est Glomerular 6 L Filtrat Rate mL/min Glucose Level 153 Calcium Level 8.3 L Test 11/30/18 12:28 Bedside Glucose 135 Subjective 24 Hr Interval Summary Gastrointestinal: nausea Exam/Review of Systems Exam Vitals Vital Signs Date Temp Pulse Resp B/P (MAP) Pulse Ox O2 O2 Flow FiO2 Time Delivery Rate 11/30/18 62 16 125/47 11:00 (73) 11/30/18 Room Air 10:00 11/30/18 98.4 08:00 11/30/18 92 05:30 11/29/18 21 02:37 Intake and Output 11/29/18 11/29/18 11/30/18 1515:00 23:00 07:00 IntakeIntake Total 622 ml 1001.5 ml 227.5 ml OutputOutput Total 3400 ml 100 ml 0 ml BalanceBalance -2778 ml 901.5 ml 227.5 ml Constitutional: alert Respiratory: clear to auscultation Cardiovascular: regular rate and rhythm Gastrointestinal: soft; No distended Musculoskeletal: nl extremities to inspection Results Results 24hrs Laboratory Tests Test 11/29/18 17:34 11/29/18 20:22 11/30/18 04:21 11/30/18 08:14 Bedside Glucose 175 190 128 Sodium Level 131 L Potassium Level 5.2 H Chloride Level 92 L Carbon Dioxide Level 27 Anion Gap 12 Blood Urea Nitrogen 36 #H Creatinine 6.55 #H Est Glomerular 6 L Filtrat Rate mL/min Glucose Level 153 Calcium Level 8.3 L Test 11/30/18 12:28 Bedside Glucose 135 Medications Medication Current Medications Dextrose (D50w Syringe) ONCE PRN IV DECREASED GLUCOSE; Start 11/29/18 at 01:30 Ondansetron HCl (Zofran Inj) 4 mg Q6H PRN IV NAUSEA AND/OR VOMITING Last administered on 11/30/18at 12:24; Admin Dose 4 MG; Start 11/29/18 at 08:30 Acetaminophen (Tylenol Liquid) 650 mg Q6H PRN PO PAIN LEVEL 1-3 OR FEVER Last administered on 11/29/18at 17:47; Admin Dose 650 MG; Start 11/29/18 at 08:30 Docusate Sodium (Colace) 100 mg Q12H PRN PO CONSTIPATION; Start 11/29/18 at 08:30 Bisacodyl (Dulcolax) 5 mg DAILY PRN PO CONSTIPATION; Start 11/29/18 at 08:30 Famotidine (Pepcid) 20 mg DAILY PO Last administered on 11/30/18at 08:17; Admin Dose 20 MG; Start 11/29/18 at 09:00 Apixaban (Eliquis) 5 mg BID PO Last administered on 11/30/18 08:17; Admin Dose 5 MG; Start 11/29/18 at 09:00 Aspirin (Halfprin) 81 mg DAILY PO Last administered on 11/30/18 08:17; Admin Dose 81 MG; Start 11/29/18 at 09:00 Benazepril HCl (Lotensin) 40 mg DAILY PO Last administered on 11/30/18 08:19; Admin Dose 40 MG; Start 11/29/18 at 09:00 Calcium Acetate (Phoslo) 1,334 mg WITH MEALS PO Last administered on 11/30/18 08:17; Admin Dose 1,334 MG; Start 11/29/18 at 11:30 Carvedilol (Coreg) 6.25 mg BID PO Last administered on 11/30/18 08:53; Admin Dose 6.25 MG; Start 11/29/18 at 09:00 Levothyroxine Sodium (Synthroid) 125 mcg BEFORE BREAKFAST PO Last administered on 11/30/18 10:24; Admin Dose 125 MCG; Start 11/30/18 at 07:00 Nifedipine (Procardia Xl) 60 mg BID PO Last administered on 11/30/18 08:17; Admin Dose 60 MG; Start 11/29/18 at 09:00 Pantoprazole (Protonix Tab) 40 mg DAILY PO Last administered on 11/30/18 08:17; Admin Dose 40 MG; Start 11/29/18 at 09:00 Pentoxifylline (Trental) 400 mg DAILY PO Last administered on 11/30/18 08:17; Admin Dose 400 MG; Start 11/29/18 at 09:00 Pyridoxine HCl (Vitamin B6) 50 mg DAILY PO Last administered on 11/30/18 08:1 7; Admin Dose 50 MG; Start 11/29/18 at 09:00 Insulin Aspart (Novolog Insulin Pen) 5 unit AC BREAKFAST DINNER SC Last administered on 11/30/18 08:31; Admin Dose 5 UNIT; Start 11/29/18 at 17:05 Nystatin (Nystatin Cr) 1 applic BID TOP Last administered on 11/30/18 08:20; Admin Dose 1 APPLIC; Start 11/29/18 at 12:00 Diagnostic Test (Pha) (Accu-Chek) 1 ea 02 XX Last administered on 7/28/19at 01:21; Admin Dose 1 EA; Start 11/30/18 at 02:00 Insulin Aspart (Novolog Insulin Pen) NOVOLOG *MILD* ALGORITHM WITH MEALS BEDTIME SC Last administered on 11/29/18at 20:27; Admin Dose 1 UNIT; Start 11/29/18 at 17:35 Miscellaneous Information 1 ea NOTE XX ; Start 11/29/18 at 13:00 Glucose (Glutose) 15 gm Q15M PRN PO DECREASED GLUCOSE; Start 11/29/18 at 13:00 Glucose (Glutose) 22.5 gm Q15M PRN PO DECREASED GLUCOSE; Start 11/29/18 at 13:00 Dextrose (D50w Syringe) 25 ml Q15M PRN IV DECREASED GLUCOSE; Start 11/29/18 at 13:00 Dextrose (D50w Syringe) 50 ml Q15M PRN IV DECREASED GLUCOSE; Start 11/29/18 at 13:00 Glucagon (Glucagen) 1 mg Q15M PRN IM DECREASED GLUCOSE; Start 11/29/18 at 13:00 Glucose (Glutose) 15 gm Q15M PRN BUCCAL DECREASED GLUCOSE; Start 11/29/18 at 13:00 Acetaminophen/ Hydrocodone Bitart ([place] (5/325)) 1 tab Q4H PRN PO MODERATE PAIN LEVEL 4-6 Last administered on 11/29/18at 20:23; Admin Dose 1 TAB; Start 11/29/18 at 17:00 Morphine Sulfate (morphine) 2 mg Q3H PRN IV SEVERE PAIN LEVEL 7-10; Start 11/29/18 at 17:00 Hydralazine HCl (Apresoline) 10 mg Q4H PRN IV ELEVATED BLOOD PRESSURE; Start 11/29/18 at 23:30 NATALIA PICKERING Nov 30, 2018 14:23
--- NOTE | 2018-11-30 17:58 | CONS ---
Assessment/Plan Assessment/Plan Assessment/Plan (Daily) # hypertensive emergency-BP now improved DIDNT take meds due to vommiting #2 End-stage renal disease with uremia and hyperkalemia: Secondary to missed HD. #3 nausea and vomiting #4 Diabetes #5 paroxysmal atrial fibrillation #6 morbid obesity #7 hypothyroidism #8 peripheral neuropathy Plan hd tts consider GI eval Consultation Date/Type/Reason Admit Date/Time Nov 29, 2018 at 01:40 Initial Consult Date Date/Time of Note DATE: 11/30/18 TIME: 17:55 24 HR Interval Summary Free Text/Dictation still some nausea/vommiting sp HD Exam/Review of Systems Exam Vitals Vital Signs Date Temp Pulse Resp B/P (MAP) Pulse Ox O2 O2 Flow FiO2 Time Delivery Rate 11/30/18 69 14 104/39 Room Air 14:00 (60) 11/30/18 98.1 12:00 11/30/18 92 05:30 11/29/18 21 02:37 Intake and Output 11/29/18 11/29/18 11/30/18 1515:00 23:00 07:00 IntakeIntake Total 622 ml 1001.5 ml 227.5 ml OutputOutput Total 3400 ml 100 ml 0 ml BalanceBalance -2778 ml 901.5 ml 227.5 ml Results Result Diagram: 11/29/18 0004 11/30/18 0421 Results 24hrs Laboratory Tests Test 11/29/18 20:22 11/30/18 04:21 11/30/18 08:14 11/30/18 12:28 Bedside Glucose 190 128 135 Sodium Level 131 L Potassium Level 5.2 H Chloride Level 92 L Carbon Dioxide Level 27 Anion Gap 12 Blood Urea Nitrogen 36 #H Creatinine 6.55 #H Est Glomerular 6 L Filtrat Rate mL/min Glucose Level 153 Calcium Level 8.3 L Test 11/30/18 17:12 Bedside Glucose 169 Medications Medication Current Medications Dextrose (D50w Syringe) ONCE PRN IV DECREASED GLUCOSE; Start 11/29/18 at 01:30 Ondansetron HCl (Zofran Inj) 4 mg Q6H PRN IV NAUSEA AND/OR VOMITING Last administered on 11/30/18at 12:24; Admin Dose 4 MG; Start 11/29/18 at 08:30 Acetaminophen (Tylenol Liquid) 650 mg Q6H PRN PO PAIN LEVEL 1-3 OR FEVER Last administered on 11/29/18 17:47; Admin Dose 650 MG; Start 11/29/18 at 08:30 Docusate Sodium (Colace) 100 mg Q12H PRN PO CONSTIPATION; Start 11/29/18 at 08:30 Bisacodyl (Dulcolax) 5 mg DAILY PRN PO CONSTIPATION; Start 11/29/18 at 08:30 Famotidine (Pepcid) 20 mg DAILY PO Last administered on 11/30/18 08:17; Admin Dose 20 MG; Start 11/29/18 at 09:00 Apixaban (Eliquis) 5 mg BID PO Last administered on 11/30/18 08:17; Admin Dose 5 MG; Start 11/29/18 at 09:00 Aspirin (Halfprin) 81 mg DAILY PO Last administered on 11/30/18 08:17; Admin Dose 81 MG; Start 11/29/18 at 09:00 Benazepril HCl (Lotensin) 40 mg DAILY PO Last administered on 11/30/18 08:19; Admin Dose 40 MG; Start 11/29/18 at 09:00 Calcium Acetate (Phoslo) 1,334 mg WITH MEALS PO Last administered on 11/30/18 17:46; Admin Dose 1,334 MG; Start 11/29/18 at 11:30 Carvedilol (Coreg) 6.25 mg BID PO Last administered on 11/30/18 08:53; Admin Dose 6.25 MG; Start 11/29/18 at 09:00 Levothyroxine Sodium (Synthroid) 125 mcg BEFORE BREAKFAST PO Last administered on 11/30/18 10:24; Admin Dose 125 MCG; Start 11/30/18 at 07:00 Nifedipine (Procardia Xl) 60 mg BID PO Last administered on 11/30/18 08:17; Admin Dose 60 MG; Start 11/29/18 at 09:00 Pantoprazole (Protonix Tab) 40 mg DAILY PO Last administered on 11/30/18 08:17; Admin Dose 40 MG; Start 11/29/18 at 09:00 Pentoxifylline (Trental) 400 mg DAILY PO Last administered on 11/30/18 08:17; Admin Dose 400 MG; Start 11/29/18 at 09:00 Pyridoxine HCl (Vitamin B6) 50 mg DAILY PO Last administered on 11/30/18at 08:17; Admin Dose 50 MG; Start 11/29/18 at 09:00 Insulin Aspart (Novolog Insulin Pen) 5 unit AC BREAKFAST DINNER SC Last administered on 11/30/18at 08:31; Admin Dose 5 UNIT; Start 11/29/18 at 17:05 Nystatin (Nystatin Cr) 1 applic BID TOP Last administered on 11/30/18at 08:20; Admin Dose 1 APPLIC; Start 11/29/18 at 12:00 Diagnostic Test (Pha) (Accu-Chek) 1 ea 02 XX Last administered on 11/30/18at 01:21; Admin Dose 1 EA; Start 11/30/18 at 02:00 Insulin Aspart (Novolog Insulin Pen) NOVOLOG *MILD* ALGORITHM WITH MEALS BEDTIME SC Last administered on 11/29/18at 20:27; Admin Dose 1 UNIT; Start 11/29/18 at 17:35 Miscellaneous Information 1 ea NOTE XX ; Start 11/29/18 at 13:00 Glucose (Glutose) 15 gm Q15M PRN PO DECREASED GLUCOSE; Start 11/29/18 at 13:00 Glucose (Glutose) 22.5 gm Q15M PRN PO DECREASED GLUCOSE; Start 11/29/18 at 13:00 Dextrose (D50w Syringe) 25 ml Q15M PRN IV DECREASED GLUCOSE; Start 11/29/18 at 13:00 Dextrose (D50w Syringe) 50 ml Q15M PRN IV DECREASED GLUCOSE; Start 11/29/18 at 13:00 Glucagon (Glucagen) 1 mg Q15M PRN IM DECREASED GLUCOSE; Start 11/29/18 at 13:00 Glucose (Glutose) 15 gm Q15M PRN BUCCAL DECREASED GLUCOSE; Start 11/29/18 at 13:00 Acetaminophen/ Hydrocodone Bitart ([place] (5/325)) 1 tab Q4H PRN PO MODERATE PAIN LEVEL 4-6 Last administered on 11/29/18at 20:23; Admin Dose 1 TAB; Start 11/29/18 at 17:00 Morphine Sulfate (morphine) 2 mg Q3H PRN IV SEVERE PAIN LEVEL 7-10; Start 11/29/18 at 17:00 Hydralazine HCl (Apresoline) 10 mg Q4H PRN IV ELEVATED BLOOD PRESSURE; Start 11/29/18 at 23:30 JODI RODRÍGUEZ MD Nov 30, 2018 17:58
[2018-12-01 02:00] VITALS: BP 110/55; PULSE 59; RESP 14
[2018-12-01] MEDS: ACCU-CHEK XX SCH (02:00)
[2018-12-01] MEDS: LEVOTHYROXINE 125 MCG TAB PO SCH (06:04)
--- NOTE | 2018-12-01 07:13 | CONS ---
DATE OF ADMISSION: 11/29/2018 DATE OF CONSULTATION: REASON FOR CONSULTATION: Hemodialysis. HISTORY OF PRESENT ILLNESS: This is a 63-year-old female with a past medical history of end-stage renal disease on hemodialysis followed by TTS with Dr. Cano at [facility], history of hypertension, hyperlipidemia, came to the ER secondary to complaining of abdominal pain, nausea, vomiting and generalized body ache for the last 2 to 3 days. According to the patient, she went to her last dialysis on . She started having some abdominal pain, nausea, vomiting and diarrhea since yesterday. She did not take her blood pressure medicines yesterday and she came to the emergency department for further evaluation. On admission, vital signs showed a blood pressure of 164/83, went up to 200. Temperature 98.0, pulse 65, respirations 20. The patient had labs that showed potassium of 6.7, sodium 134, bicarbonate 22, BUN of 71, creatinine 9.69, glucose of 235, hemoglobin of 10.1, platelet count of 181. Patient had CT of the abdomen and pelvis that showed cholelithiasis, no evidence of acute cholecystitis, surgical clip addition to a GE junction. No evidence of obstruction or bowel thickening and patient was started on nitro drip and was admitted for further management. PAST MEDICAL HISTORY: 1. End-stage renal disease on hemodialysis Saturday, and Saturday. 2. Hypertension. 3. Hyperlipidemia. 4. Diabetes. 5. Hypothyroidism. 6. Peripheral neuropathy. ALLERGIES: NONE. PAST SURGICAL HISTORY: The patient had a Perm-A-Cath placement. The patient has had before, had a left AV fistula. SOCIAL HISTORY: No history of smoking, alcohol or any drug use. Currently lives at home with the family. MEDICATIONS: Taking at home: 1. Eliquis 5. 2. Pentoxifylline. 3. Benazepril 40. 4. Coreg 6.25 b.i.d. 5. Metoprolol 25 b.i.d. 6. Nifedipine 60. 7. Aspirin 81. 8. Calcium acetate. 9. Pantoprazole. 10. Levothyroxine. REVIEW OF SYSTEMS: The patient complained of generalized abdominal pain, nausea, vomiting, diarrhea. Denies any chest pain, any shortness of breath, any lower extremity edema. Denies any headache, any blurry vision. PHYSICAL EXAMINATION: VITAL SIGNS: Currently, blood pressure 173/62, pulse 64, respirations 14, saturating 96%. GENERAL: The patient is awake, alert, oriented, appears to be in moderate distress secondary to pain. HEENT: Pupils equal, round, reactive to light. NECK: Supple. HEART: Regular rate and rhythm. ____. ABDOMEN: Some tenderness present in the epigastric region. Positive bowel sounds. EXTREMITIES: No clubbing, cyanosis, or edema. The patient has a left AV fistula in place with good bruit and thrill. LABORATORY DATA: Potassium was 6.7, sodium 134, BUN of 73, creatinine 9.71, glucose 269. Lipase within normal limit. LFTs: Within normal limits. White count 9.3, hemoglobin 10.1, platelet count 181. ASSESSMENT AND PLAN: This is a 63-year-old female who presented with: 1. Hypertensive emergency, likely secondary to episodes of nausea and vomiting. The patient was not taking her blood pressure medications. 2. Hyperkalemia, likely secondary to missing episode of hemodialysis secondary to feeling ____ not being unwell. 3. Nausea, vomiting, diarrhea, rule out colitis, gastroenteritis 4. Gastroesophageal reflux disease. 5. Diabetes, rule out gastroparesis. 6. Paroxysmal atrial fibrillation. 7. Morbid obesity. 8. Hypothyroidism. 9. End-stage renal disease on hemodialysis. PLAN: At this period of time, the patient is admitted to the ICU, is currently on nitro drip. We will continue the patient on hemodialysis. The patient will need GI evaluation. dialysis patients normally dont get uremic symtoms until and unless they have been missing HD , which should not be a reason for her to cause acute onset of abdominal pain, nausea, vomiting and diarrhea. Patient should be on a PPI. The rest of the treatment will depend on the patient's hospitalization course. Dictated By: JODI RODRIGUEZ/FADUMO Conf#: [id number] DID#: [id number] MTDD
[2018-12-01 07:59] VITALS: BP 128/57; PULSE 63; RESP 17
[2018-12-01] MEDS: NYSTATIN 15 GM CR TOP SCH ×2 (08:46→23:12)
[2018-12-01] MEDS: ASPIRIN (EC) 81 MG TAB PO SCH (08:46)
[2018-12-01] MEDS: PENTOXIFYLLINE (SR) 400 MG TAB PO SCH (08:46)
[2018-12-01] MEDS: PYRIDOXINE 50 MG TAB PO SCH (08:46)
[2018-12-01] MEDS: PANTOPRAZOLE (EC) 40 MG TAB PO SCH (08:46)
[2018-12-01] MEDS: BENAZEPRIL 40 MG TAB PO SCH (08:46)
[2018-12-01] MEDS: FAMOTIDINE 20 MG TAB PO SCH (08:46)
[2018-12-01] MEDS: APIXABAN 5 MG TABLET PO SCH ×2 (08:46→20:53)
[2018-12-01] MEDS: CALCIUM ACETATE 667 MG CAP PO SCH ×3 (08:46→17:23)
[2018-12-01] MEDS: NIFEdipine (XL) 60 MG TAB PO SCH ×2 (08:47→20:53)
[2018-12-01] MEDS: INSULIN ASPART [NOVOLOG] 3 ML PEN SC SCH ×6 (08:48→21:00)
--- NOTE | 2018-12-01 12:05 | DS ---
Date/Time of Note Date/Time of Note DATE: 12/01/18 TIME: 12:04 Discharge Summary Admission/Discharge Info Admit Date/Time Nov 29, 2018 at 01:40 Discharge Date/Time Discharge Diagnosis 63-year-old female with a history of end-stage renal disease on hemodialysis, paroxysmal A. fib, hypertension, anemia, diabetes mellitus on insulin presenting to the ER because of abdominal pain intermittently for the last 2 days, had similar symptom previously, complains of vomiting and diarrhea. 1. Abdominal pain, nausea and vomiting likely secondary to gastroparesis versus gastroenteritis: Resolved 2. Status post hypertensive emergency secondary to missed hemodialysis: Resolved 3. Hypertension with good control on current medication 4. Stage renal disease: Continue routine hemodialysis Saturday 5. Status post uremia and hyperkalemia from missed hemodialysis: Resolved 6. Diabetes mellitus, with poor control, hemoglobin A1c of 9.4: Status post diabetic compliance counseling and medication adjustment 7. Paroxysmal atrial fibrillation on anticoagulation 8. Chronic hypothyroidism 9. Chronic peripheral neuropathy . Patient Condition: Stable Consults Nephrology: Mel Mosqurea MD . 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 Because of her symptoms, she missed her hemodialysis session and was also found to be in severe hypertensive emergency. Due to severely elevated blood pressures, she required short stent in the ICU on a nitro drip and after her blood pressures were stabilized and was transferred to the medical surgical floor. She has done well at this time, she is currently tolerating diet without any more abdominal pain nausea vomiting. Also has had no diarrhea since admission. At this time patient has been diagnosed with a short course of viral gastroenteritis versus gastroparesis from chronic renal disease, peripheral neuropathy as well as poorly controlled diabetes mellitus. She will benefit from close follow-up with gastroenterology. Case management consult has been ordered to arrange this. In interim she will be started on high-fiber diet, low-dose Reglan for short course and see how she does. She has been evaluated by myself in detail and stable for discharge at this time. She will continue on her routine hemodialysis sessions Tuesdays and Saturdays however due to her mild elevation in potassium levels she will be treated with Kayexalate prior to discharge. This has all been reviewed with her in detail, questions have been answered, patient is planned for discharge in stable condition later today. . Home Meds Active Scripts Calcium Acetate* (Phoslo*) 667 Mg Tablet, 1334 MG PO WITH MEALS for 30 Days, #180 TAB 2 Refills Prov:KISHA GALARZA 12/01/18 [Insulin Glargine] 100 UNITS/ML SOLN No Conflict Check, 10 UNITS SC DAILY@0800 for 30 Days, #3 VIAL 2 Refills Prov:KISHA GALARZA. 12/01/18 Docusate Sodium* (Colace*) 100 Mg Capsule, 100 MG PO BID, #60 CAP 2 Refills Prov:KISHA GALARZA. 12/01/18 Psyllium Husk/Aspartame (Metamucil Sugar-Free Powder) 283 Gm Powder, 283 GM PO DAILY, #30 PACKET 3 Refills mix daily with at least 8 ounces of water Prov:KISHA GALARZA 12/01/18 Reported Medications Pyridoxine Hcl* (Vitamin B-6*) 50 Mg Capsule, 50 MG PO DAILY, CAP 11/29/18 Pentoxifylline* (Pentoxifylline*) 400 Mg Tablet.sa, 400 MG PO DAILY, TAB 11/29/18 Pantoprazole* (Pantoprazole*) 40 Mg Tablet.dr, 40 MG PO AC BREAKFAST, TAB 11/29/18 Nifedipine* (Nifedipine ER*) 60 Mg Tablet.sa, 60 MG PO BID, TAB.SA 11/29/18 Metoprolol Tartrate* (Lopressor*) 25 Mg Tab, 25 MG PO BID, #60 TAB 11/29/18 Levothyroxine Sodium* (Levothyroxine Sodium*) 125 Mcg Tablet, 125 MCG PO BEFORE BREAKFAST, #30 TAB 11/29/18 Insulin Aspart* (Novolog Insulin Pen*) 100 Unit/Ml Soln, 5 UNIT SC WITH BREAKFAST DINNE, EA 11/29/18 Carvedilol* (Carvedilol*) 6.25 Mg Tablet, 6.25 MG PO BID, #60 TAB 11/29/18 Calcium Acetate* (Calcium Acetate*) 667 Mg Capsule, 667 MG PO WITH MEALS, #30 CAP 11/29/18 Benazepril Hcl* (Benazepril Hcl*) 40 Mg Tablet, 40 MG PO DAILY, #30 TAB 11/29/18 Aspirin* (Aspirin* EC) 81 Mg Tablet.dr, 81 MG PO DAILY, TAB 11/29/18 Apixaban* (Eliquis*) 5 Mg Tablet, 5 MG PO BID, TAB 11/29/18 Discontinued Reported Medications Apixaban* (Eliquis*) 5 Mg Tablet, 5 MG PO BID, TAB 04/15/18 Nifedipine* (Nifedipine ER*) 60 Mg Tablet.sa, 60 MG PO BID, TAB.SA 04/15/18 Levothyroxine Sodium* (Levothyroxine Sodium*) 125 Mcg Tablet, 125 MCG PO BEFORE BREAKFAST, #30 TAB 04/15/18 Pyridoxine Hcl* (Pyridoxine Hcl*) 50 Mg Tablet, 50 MG PO DAILY, TAB 11/19/17 Pentoxifylline* (Pentoxifylline*) 400 Mg Tablet.sa, 400 MG PO DAILY, TAB 11/19/17 Pantoprazole* (Protonix*) 40 Mg Tablet.dr, 40 MG PO DAILY, TAB 11/19/17 Insulin Aspart (Novolog) 100 Unit/1 Ml Cartridge, 5 UNIT SQ BID 11/19/17 Metoprolol Tartrate* (Lopressor*) 25 Mg Tablet, 25 MG PO BID, #60 TAB 11/19/17 Carvedilol* (Carvedilol*) 6.25 Mg Tablet, 6.25 MG PO BID, #60 TAB 11/19/17 Calcium Acetate* (Calcium Acetate*) 667 Mg Capsule, 1334 MG PO WITH MEALS, #60 CAP 11/19/17 Benazepril Hcl* (Benazepril Hcl*) 40 Mg Tablet, 40 MG PO DAILY, #30 TAB 11/19/17 Aspirin (Low Dose Aspirin) 81 Mg Tablet.dr, 81 MG PO DAILY, #30 TAB 11/19/17 Follow-up Plan see dc instructions . Primary Care Provider Uriah Bennett MD Time spent on discharge: > 30 minutes Pending Labs Laboratory Tests Test 11/30/18 12:28 11/30/18 17:12 11/30/18 20:37 12/01/18 05:18 Bedside 135 169 116 Glucose mg/dL (70-220) mg/dL (70-220) mg/dL (70-220) White Blood 7.5 Count 10^3/ul (4.8-1 0.8) Red Blood 2.69 Count 10^6/ul (4.20- 5.40) Hemoglobin 8.4 g/dl (12.0-16. 0) Hematocrit 26.0 % (37.0-47.0) Mean 96.7 Corpuscular fl (82.0-101.0 Volume ) Mean 31.2 Corpuscular pg (29.0-33.0) Hemoglobin Mean 32.3 Corpuscular g/dl (32.0-37. Hemoglobin Conc 0) ent Red Cell 13.1 Distribution % (11.5-14.5) Width Platelet Count 156 10^3/UL (140-4 15) Mean Platelet 12.1 Volume fl (7.4-10.4) Immature 0.400 Granulocytes % % (0.001-0.429 ) Neutrophils % 69.7 % (39.0-77.0) Lymphocytes % 14.8 % (15.0-51.0) Monocytes % 10.7 % (0.0-11.0) Eosinophils % 4.0 % (0.0-7.0) Basophils % 0.4 % (0.0-2.0) Nucleated Red 0.0 Blood Cells % /100WBC (0.0-0 .0) Immature 0.030 Granulocytes # 10^3/ul (0.0-0 .031) Neutrophils # 5.2 10^3/ul (1.6-7 .5) Lymphocytes # 1.1 10^3/ul (0.8-2 .9) Monocytes # 0.8 10^3/ul (0.3-0 .9) Eosinophils # 0.3 10^3/ul (0.0-0 .5) Basophils # 0.0 10^3/ul (0.0-0 .1) Nucleated Red 0.0 Blood Cells # 10^3/ul (0.0-0 .0) Sodium Level 132 mmol/L (135-14 4) Potassium 5.2 Level mmol/L (3.5-5. 1) Chloride Level 91 mmol/L (97-110 ) Carbon Dioxide 27 Level mmol/L (21-31) Anion Gap 14 (5-13) Blood Urea 48 Nitrogen mg/dl (7-20) Creatinine 7.92 mg/dl (0.44-1. 00) Est Glomerular 5 mL/min (>60) Filtrat Rate mL/min Glucose Level 140 mg/dl (70-220) Calcium Level 8.3 mg/dl (8.4-10. 2) Phosphorus 9.5 Level mg/dl (2.5-4.9 ) Magnesium 1.9 Level mg/dl (1.7-2.5 ) Test 12/01/18 08:03 Bedside 148 Glucose mg/dL (70-220) KISHA GALARZA Dec 01, 2018 12:05
--- NOTE | 2018-12-01 12:11 | PDOCDIS ---
Discharge Instructions CONDITION [id number] Patient Condition: [id number] Stable HOME CARE INSTRUCTIONS: [id number] Special Diet: [id number] : [id number] Activity Restrictions: [id number] Slowly Increase Activity Rest between Activity FOLLOW UP/APPOINTMENTS Follow-up Plan 1. You will benefit from evaluation from her faculty research assistant. I have asked the case management team to arrange this for you. Also follow-up with your primary care doctor next 1 to 2 days to ensure your blood pressures and blood sugars remain under control. Also notify them that we have recommended that you see a faculty research assistant. 1. Usted se beneficiar de la evaluacin de moody gastroenterlogo. Le he pedido al equipo de administracin de casos que arregle esto para usted. Piotr haz un seguimiento con tu mdico de atencin primaria los prximos 1 a 2 núñez para asegurarte de que la presin arterial y los azcares en chelsy permanezcan bajo control. Piotr notifqueles que hemos recomendado que rodriguez a un gastroenterlogo. 2. Review your medication list with your nurse before leaving and if you need new prescriptions please let your nurse know. 2. Revise moody lista de medicamentos con moody enfermera antes de salir y si necesita recetas nuevas, por favor Hle saber a moody enfermera. 3. I may have made changes to your home medications or given you new prescriptions, please let your primary doctor know as well. 3. puede que haya hecho cambios en marii medicamentos caseros o le haya dado nuevas prescripciones, por favor Hle saber a moody mdico de alecia hagan. 4. Stay compliant with your medications and report any side effects to your PCP or pharmacist. 4. cumpla con marii medicamentos e informe de cualquier efecto secundario a moody PCP o farmacutico. 5. Return to the ER if you have any concerns and cannot reach your doctors or call your insurance company, they usually have a nurse that can help you. 5. Regrese a la ER si tiene alguna inquietud y no puede comunicarse con marii doctores o llamar a moody compaa de seguros, usualmente tienen milana enfermera que puede ayudarlo. KISHA GALARZA. Dec 01, 2018 12:11
[2018-12-01] MEDS ORDERED: NA POLYST SULFON 15 GM/60 ML BTL PO ONE (12:30)
[2018-12-01 14:00] VITALS: BP 109/54; PULSE 54; RESP 16
[2018-12-01] MEDS ORDERED: VELTASSA 16.8 GM PO SCH (16:00)
[2018-12-01] MEDS: ONDANSETRON 4 MG INJ IV PRN (17:00)
[2018-12-01] MEDS ORDERED: ONDANSETRON 4 MG INJ IV PRN (17:00)
[2018-12-01] MEDS: METOCLOPRAMIDE 10 MG INJ IV SCH ×2 (17:22→23:58)
[2018-12-01 19:40] VITALS: BP 124/58; PULSE 61; RESP 16
[2018-12-01] MEDS: HYDROCODONE/APAP (5/325) TAB PO PRN (20:51)
[2018-12-01] MEDS ORDERED: SODIUM POLYSTYRENE 15 GM KIT (POWDER + SORBITOL) PO ONE (23:00)
[2018-12-02] VITALS (17 sets, daily range): BP systolic 118–164; BP diastolic 58–74; PULSE 57–75; RESP 16–18
[2018-12-02] MEDS: ACCU-CHEK XX SCH (02:00)
[2018-12-02] MEDS: LEVOTHYROXINE 125 MCG TAB PO SCH (06:44)
[2018-12-02] MEDS: METOCLOPRAMIDE 10 MG INJ IV SCH ×2 (06:44→12:42)
[2018-12-02] MEDS: INSULIN ASPART [NOVOLOG] 3 ML PEN SC SCH ×6 (08:00→21:00)
[2018-12-02] MEDS: INSULIN GLARGINE [LANTus] (100 UNITS/ML) SYG SC SCH (08:28)
[2018-12-02] MEDS: PANTOPRAZOLE (EC) 40 MG TAB PO SCH ×2 (08:34→17:36)
[2018-12-02] MEDS: PENTOXIFYLLINE (SR) 400 MG TAB PO SCH (08:34)
[2018-12-02] MEDS: FAMOTIDINE 20 MG TAB PO SCH (08:34)
[2018-12-02] MEDS: PYRIDOXINE 50 MG TAB PO SCH (08:34)
[2018-12-02] MEDS: CALCIUM ACETATE 667 MG CAP PO SCH ×3 (08:35→17:35)
[2018-12-02] MEDS: APIXABAN 5 MG TABLET PO SCH (08:35)
[2018-12-02] MEDS: ASPIRIN (EC) 81 MG TAB PO SCH (08:35)
[2018-12-02] MEDS: BENAZEPRIL 40 MG TAB PO SCH ×2 (08:35→09:00)
[2018-12-02] MEDS: NIFEdipine (XL) 60 MG TAB PO SCH ×3 (08:35→21:38)
[2018-12-02] MEDS: NYSTATIN 15 GM CR TOP SCH ×2 (09:00→21:39)
--- NOTE | 2018-12-02 10:01 | CONS ---
Assessment/Plan Assessment/Plan Assessment/Plan (Daily) hypertensive emergency-BP now improved DIDNT take meds due to vommiting #2 End-stage renal disease with uremia and hyperkalemia: Secondary to missed HD. #3 nausea and vomiting #4 Diabetes #5 paroxysmal atrial fibrillation #6 morbid obesity #7 hypothyroidism #8 peripheral neuropathy Plan hd tts, pt would likle to be on her schedule consider GI eval given nausea/vommiting Vu today for K Consultation Date/Type/Reason Admit Date/Time Nov 29, 2018 at 01:40 Initial Consult Date Date/Time of Note DATE: 12/02/18 TIME: 09:59 24 HR Interval Summary Free Text/Dictation Pt was seen yesterday around 14.00 this note is from yesterday pt still having abdominal pain/nausea K 5.2 today Exam/Review of Systems Exam Vitals Vital Signs Date Temp Pulse Resp B/P (MAP) Pulse Ox O2 O2 Flow FiO2 Time Delivery Rate 12/02/18 98.6 69 16 149/67 95 07:40 (94) 12/02/18 Room Air 02:07 11/29/18 21 02:37 Intake and Output 12/01/18 12/01/18 12/02/18 1515:00 23:00 07:00 IntakeIntake Total 600 ml BalanceBalance 600 ml Exam GENERAL: The patient is awake, alert, oriented, appears to be in moderate distress secondary to pain. HEENT: Pupils equal, round, reactive to light. NECK: Supple. HEART: Regular rate and rhythm. ____. ABDOMEN: Some tenderness present in the epigastric region. Positive bowel sounds. EXTREMITIES: No clubbing, cyanosis, or edema. The patient has a left AV fistula in place with good bruit and thrill. Results Result Diagram: 12/01/1818 12/01/182154 Results 24hrs Laboratory Tests Test 12/01/18 12:37 12/01/18 16:05 12/01/18 17:45 12/01/18 21:55 Bedside Glucose 125 197 Sodium Level 130 L Potassium Level 5.9 H 5.8 H Chloride Level 89 L Carbon Dioxide Level 25 Anion Gap 16 H Blood Urea Nitrogen 53 H Creatinine 8.56 H Est Glomerular 5 L Filtrat Rate mL/min Glucose Level 193 Calcium Level 8.3 L Test 12/01/18 23:03 12/02/18 08:20 Bedside Glucose 141 120 Medications Medication Current Medications Dextrose (D50w Syringe) ONCE PRN IV DECREASED GLUCOSE; Start 11/29/18 at 01:30 Acetaminophen (Tylenol Liquid) 650 mg Q6H PRN PO PAIN LEVEL 1-3 OR FEVER Last administered on 11/29/18 17:47; Admin Dose 650 MG; Start 11/29/18 at 08:30 Docusate Sodium (Colace) 100 mg Q12H PRN PO CONSTIPATION; Start 11/29/18 at 08:30 Bisacodyl (Dulcolax) 5 mg DAILY PRN PO CONSTIPATION; Start 11/29/18 at 08:30 Famotidine (Pepcid) 20 mg DAILY PO Last administered on 12/02/18 08:34; Admin Dose 20 MG; Start 11/29/18 at 09:00 Apixaban (Eliquis) 5 mg BID PO Last administered on 12/02/18 08:35; Admin Dose 5 MG; Start 11/29/18 at 09:00 Aspirin (Halfprin) 81 mg DAILY PO Last administered on 12/02/18 08:35; Admin Dose 81 MG; Start 11/29/18 at 09:00 Benazepril HCl (Lotensin) 40 mg DAILY PO Last administered on 12/01/18 08:46; Admin Dose 40 MG; Start 11/29/18 at 09:00 Calcium Acetate (Phoslo) 1,334 mg WITH MEALS PO Last administered on 12/02/18 08:35; Admin Dose 1,334 MG; Start 11/29/18 at 11:30 Carvedilol (Coreg) 6.25 mg BID PO Last administered on 12/01/18 20:53; Admin Dose 6.25 MG; Start 11/29/18 at 09:00 Levothyroxine Sodium (Synthroid) 125 mcg BEFORE BREAKFAST PO Last administered on 12/02/18 06:44; Admin Dose 125 MCG; Start 11/30/18 at 07:00 Nifedipine (Procardia Xl) 60 mg BID PO Last administered on 12/01/18 20:53; Admin Dose 60 MG; Start 11/29/18 at 09:00 Pantoprazole (Protonix Tab) 40 mg DAILY PO Last administered on 12/02/18 08:34; Admin Dose 40 MG; Start 11/29/18 at 09:00 Pentoxifylline (Trental) 400 mg DAILY PO Last administered on 12/02/18at 08:34; Admin Dose 400 MG; Start 11/29/18 at 09:00 Pyridoxine HCl (Vitamin B6) 50 mg DAILY PO Last administered on 12/02/18 08:34; Admin Dose 50 MG; Start 11/29/18 at 09:00 Insulin Aspart (Novolog Insulin Pen) 5 unit AC BREAKFAST DINNER SC Last administered on 12/02/18at 08:26; Admin Dose 5 UNIT; Start 11/29/18 at 17:05 Nystatin (Nystatin Cr) 1 applic BID TOP Last administered on 12/01/18at 23:12; Admin Dose 1 APPLIC; Start 11/29/18 at 12:00 Diagnostic Test (Pha) (Accu-Chek) 1 ea 02 XX Last administered on 11/30/18at 01:21; Admin Dose 1 EA; Start 11/30/18 at 02:00 Insulin Aspart (Novolog Insulin Pen) NOVOLOG *MILD* ALGORITHM WITH MEALS BEDTIME SC Last administered on 12/01/18at 17:47; Admin Dose 2 UNIT; Start 11/29/18 at 17:35 Miscellaneous Information 1 ea NOTE XX ; Start 11/29/18 at 13:00 Glucose (Glutose) 15 gm Q15M PRN PO DECREASED GLUCOSE; Start 11/29/18 at 13:00 Glucose (Glutose) 22.5 gm Q15M PRN PO DECREASED GLUCOSE; Start 11/29/18 at 13:00 Dextrose (D50w Syringe) 25 ml Q15M PRN IV DECREASED GLUCOSE; Start 11/29/18 at 13:00 Dextrose (D50w Syringe) 50 ml Q15M PRN IV DECREASED GLUCOSE; Start 11/29/18 at 13:00 Glucagon (Glucagen) 1 mg Q15M PRN IM DECREASED GLUCOSE; Start 11/29/18 at 13:00 Glucose (Glutose) 15 gm Q15M PRN BUCCAL DECREASED GLUCOSE; Start 11/29/18 at 13:00 Acetaminophen/ Hydrocodone Bitart ([place] (5/325)) 1 tab Q4H PRN PO MODERATE PAIN LEVEL 4-6 Last administered on 12/01/18at 20:51; Admin Dose 1 TAB; Start 11/29/18 at 17:00 Morphine Sulfate (morphine) 2 mg Q3H PRN IV SEVERE PAIN LEVEL 7-10; Start 11/29/18 at 17:00 Hydralazine HCl (Apresoline) 10 mg Q4H PRN IV ELEVATED BLOOD PRESSURE; Start 11/29/18 at 23:30 Insulin Glargine (Lantus) 15 units DAILY@0800 SC Last administered on 12/02/18at 08:28; Admin Dose 15 UNITS; Start 12/02/18 at 08:00 Ondansetron HCl (Zofran Inj) 4 mg Q6H PRN IV NAUSEA AND/OR VOMITING; Start 12/01/18 at 17:00 Metoclopramide HCl (Reglan) 10 mg Q6 IV Last administered on 12/02/18at 06:44; Admin Dose 10 MG; Start 12/01/18 at 17:30 JODI RODRÍGUEZ MD Dec 02, 2018 10:01
--- NOTE | 2018-12-02 14:03 | CONS ---
Assessment/Plan Assessment/Plan Assessment/Plan (Daily) hypertensive emergency-BP now improved DIDNT take meds due to vommiting #2 End-stage renal disease with uremia and hyperkalemia: Secondary to missed HD. #3 nausea and vomiting #4 Diabetes #5 paroxysmal atrial fibrillation #6 morbid obesity #7 hypothyroidism #8 peripheral neuropathy Plan hd tts Gi eval for EGD Consultation Date/Type/Reason Admit Date/Time Nov 29, 2018 at 01:40 Initial Consult Date Date/Time of Note DATE: 12/02/18 TIME: 14:03 24 HR Interval Summary Free Text/Dictation HD in progress still nausea Exam/Review of Systems Exam Vitals Vital Signs Date Temp Pulse Resp B/P (MAP) Pulse Ox O2 O2 Flow FiO2 Time Delivery Rate 12/02/18 98.6 69 16 149/67 95 07:40 (94) 12/02/18 Room Air 02:07 11/29/18 21 02:37 Intake and Output 12/01/18 12/01/18 12/02/18 1515:00 23:00 07:00 IntakeIntake Total 600 ml BalanceBalance 600 ml Exam GENERAL: The patient is awake, alert, oriented, appears to be in moderate distress secondary to pain. HEENT: Pupils equal, round, reactive to light. NECK: Supple. HEART: Regular rate and rhythm. ____. ABDOMEN: Some tenderness present in the epigastric region. Positive bowel sounds. EXTREMITIES: No clubbing, cyanosis, or edema. The patient has a left AV fistula in place with good bruit and thrill. Results Result Diagram: 12/01/18 0518 12/01/18 2155 Results 24hrs Laboratory Tests Test 12/01/18 16:05 12/01/18 17:45 12/01/18 21:55 12/01/18 23:03 Sodium Level 130 L Potassium Level 5.9 H 5.8 H Chloride Level 89 L Carbon Dioxide Level 25 Anion Gap 16 H Blood Urea Nitrogen 53 H Creatinine 8.56 H Est Glomerular 5 L Filtrat Rate mL/min Glucose Level 193 Calcium Level 8.3 L Bedside Glucose 197 141 Test 12/02/18 08:20 12/02/18 11:36 12/02/18 12:39 Bedside Glucose 120 115 Phosphorus Level 9.2 H Magnesium Level 1.9 Medications Medication Current Medications Dextrose (D50w Syringe) ONCE PRN IV DECREASED GLUCOSE; Start 11/29/18 at 01:30 Acetaminophen (Tylenol Liquid) 650 mg Q6H PRN PO PAIN LEVEL 1-3 OR FEVER Last administered on 11/29/18at 17:47; Admin Dose 650 MG; Start 11/29/18 at 08:30 Docusate Sodium (Colace) 100 mg Q12H PRN PO CONSTIPATION; Start 11/29/18 at 08:30 Bisacodyl (Dulcolax) 5 mg DAILY PRN PO CONSTIPATION; Start 11/29/18 at 08:30 Famotidine (Pepcid) 20 mg DAILY PO Last administered on 12/02/18 08:34; Admin Dose 20 MG; Start 11/29/18 at 09:00 Apixaban (Eliquis) 5 mg BID PO Last administered on 12/02/18 08:35; Admin Dose 5 MG; Start 11/29/18 at 09:00 Aspirin (Halfprin) 81 mg DAILY PO Last administered on 12/02/18 08:35; Admin Dose 81 MG; Start 11/29/18 at 09:00 Benazepril HCl (Lotensin) 40 mg DAILY PO Last administered on 12/01/18 08:46; Admin Dose 40 MG; Start 11/29/18 at 09:00 Calcium Acetate (Phoslo) 1,334 mg WITH MEALS PO Last administered on 12/02/18 08:35; Admin Dose 1,334 MG; Start 11/29/18 at 11:30 Carvedilol (Coreg) 6.25 mg BID PO Last administered on 12/01/18 20:53; Admin Dose 6.25 MG; Start 11/29/18 at 09:00 Levothyroxine Sodium (Synthroid) 125 mcg BEFORE BREAKFAST PO Last administered on 12/02/18 06:44; Admin Dose 125 MCG; Start 11/30/18 at 07:00 Nifedipine (Procardia Xl) 60 mg BID PO Last administered on 12/01/18 20:53; Admin Dose 60 MG; Start 11/29/18 at 09:00 Pantoprazole (Protonix Tab) 40 mg DAILY PO Last administered on 12/02/18 08:34; Admin Dose 40 MG; Start 11/29/18 at 09:00 Pentoxifylline (Trental) 400 mg DAILY PO Last administered on 12/02/18 08:34; Admin Dose 400 MG; Start 11/29/18 at 09:00 Pyridoxine HCl (Vitamin B6) 50 mg DAILY PO Last administered on 12/02/18at 08:34; Admin Dose 50 MG; Start 11/29/18 at 09:00 Insulin Aspart (Novolog Insulin Pen) 5 unit AC BREAKFAST DINNER SC Last administered on 12/02/18 08:26; Admin Dose 5 UNIT; Start 11/29/18 at 17:05 Nystatin (Nystatin Cr) 1 applic BID TOP Last administered on 12/01/18at 23:12; Admin Dose 1 APPLIC; Start 11/29/18 at 12:00 Diagnostic Test (Pha) (Accu-Chek) 1 ea 02 XX Last administered on 11/30/18at 01:21; Admin Dose 1 EA; Start 11/30/18 at 02:00 Insulin Aspart (Novolog Insulin Pen) NOVOLOG *MILD* ALGORITHM WITH MEALS BEDTIME SC Last administered on 12/01/18at 17:47; Admin Dose 2 UNIT; Start 11/29/18 at 17:35 Miscellaneous Information 1 ea NOTE XX ; Start 11/29/18 at 13:00 Glucose (Glutose) 15 gm Q15M PRN PO DECREASED GLUCOSE; Start 11/29/18 at 13:00 Glucose (Glutose) 22.5 gm Q15M PRN PO DECREASED GLUCOSE; Start 11/29/18 at 13:00 Dextrose (D50w Syringe) 25 ml Q15M PRN IV DECREASED GLUCOSE; Start 11/29/18 at 13:00 Dextrose (D50w Syringe) 50 ml Q15M PRN IV DECREASED GLUCOSE; Start 11/29/18 at 13:00 Glucagon (Glucagen) 1 mg Q15M PRN IM DECREASED GLUCOSE; Start 11/29/18 at 13:00 Glucose (Glutose) 15 gm Q15M PRN BUCCAL DECREASED GLUCOSE; Start 11/29/18 at 13:00 Acetaminophen/ Hydrocodone Bitart ([place] (5/325)) 1 tab Q4H PRN PO MODERATE PAIN LEVEL 4-6 Last administered on 12/01/18at 20:51; Admin Dose 1 TAB; Start 11/29/18 at 17:00 Morphine Sulfate (morphine) 2 mg Q3H PRN IV SEVERE PAIN LEVEL 7-10; Start 11/29/18 at 17:00 Hydralazine HCl (Apresoline) 10 mg Q4H PRN IV ELEVATED BLOOD PRESSURE; Start 11/29/18 at 23:30 Insulin Glargine (Lantus) 15 units DAILY@0800 SC Last administered on 12/02/18at 08:28; Admin Dose 15 UNITS; Start 12/02/18 at 08:00 Ondansetron HCl (Zofran Inj) 4 mg Q6H PRN IV NAUSEA AND/OR VOMITING; Start 12/01/18 at 17:00 Metoclopramide HCl (Reglan) 10 mg Q6 IV Last administered on 12/02/18at 12:42; Admin Dose 10 MG; Start 12/01/18 at 17:30 JODI RODRÍGUEZ MD Dec 02, 2018 14:03
--- NOTE | 2018-12-02 14:22 | PN ---
Date/Time of Note Date/Time of Note DATE: 12/02/18 TIME: 14:13 Assessment/Plan VTE Prophylaxis Risk score (from Nsg)>0 risk: 3 SCD applied (from Nsg): Yes Pharmacological prophylaxis: heparin Lines/Catheters IV Catheter Type (from Nrsg): [place] Urinary Cath still in place: No Assessment/Plan Hospital Course 63-year-old female with a history of end-stage renal disease on hemodialysis, paroxysmal A. fib, hypertension, anemia, diabetes mellitus on insulin presenting to the ER because of abdominal pain intermittently for the last 2 days, had similar symptom previously, complains of vomiting and diarrhea. 1. Abdominal pain, nausea and vomiting likely secondary to gastroparesis versus gastroenteritis: -patient's symptom's keep recurring. CT of the abdomen and pelvis on admission shows no significant abnormality other than the lithiasis however patient has no significant pain and any discomfort he has is in the lower abdomen. _we will get ultrasound however to evaluate biliary tree and gallbladder, will consider a small bowel follow-through as well. We will also get GI consultation. It is still my opinion that her symptoms are more secondary to gastroparesis 2. Status post hypertensive emergency secondary to missed hemodialysis: Resolved 3. Hypertension with good control on current medication 4. Stage renal disease: Continue routine hemodialysis Saturday 5. Status post uremia and hyperkalemia from missed hemodialysis: 6. Diabetes mellitus, with poor control, hemoglobin A1c of 9.4: Status post diabetic compliance counseling and medication adjustment 7. Paroxysmal atrial fibrillation on anticoagulation 8. Chronic hypothyroidism 9. Chronic peripheral neuropathy 10. Anxiety: -Patient's anxiety is worsened by Reglan, she is at this time very anxious about her symptoms and would like something to calm her down. . further interventions per course Result Diagram: 12/01/1851712/01/182154 Results 24hrs Laboratory Tests Test 12/01/18 16:05 12/01/18 17:45 12/01/18 21:55 12/01/18 23:03 Sodium Level 130 L Potassium Level 5.9 H 5.8 H Chloride Level 89 L Carbon Dioxide Level 25 Anion Gap 16 H Blood Urea Nitrogen 53 H Creatinine 8.56 H Est Glomerular 5 L Filtrat Rate mL/min Glucose Level 193 Calcium Level 8.3 L Bedside Glucose 197 141 Test 12/02/18 08:20 12/02/18 11:36 12/02/18 12:39 Bedside Glucose 120 115 Phosphorus Level 9.2 H Magnesium Level 1.9 Subjective 24 Hr Interval Summary Free Text/Dictation Still with a lot of nausea, headaches, anxiety. Ongoing dialysis Exam/Review of Systems Exam Vitals Vital Signs Date Temp Pulse Resp B/P (MAP) Pulse Ox O2 O2 Flow FiO2 Time Delivery Rate 12/02/18 98.6 69 16 149/67 95 07:40 (94) 12/02/18 Room Air 02:07 11/29/18 21 02:37 Intake and Output 12/01/18 12/01/18 12/02/18 1515:00 23:00 07:00 IntakeIntake Total 600 ml BalanceBalance 600 ml Exam Constitutional: alert, oriented, Obese, anxious ++ Head: atraumatic, normocephalic Neck: non-tender, supple Respiratory: clear to auscultation Cardiovascular: regular rate and rhythm Gastrointestinal: S/ NT / ND / +BS Extremities: no edema, good radial pulses Results Results 24hrs Laboratory Tests Test 12/01/18 16:05 12/01/18 17:45 12/01/18 21:55 12/01/18 23:03 Sodium Level 130 L Potassium Level 5.9 H 5.8 H Chloride Level 89 L Carbon Dioxide Level 25 Anion Gap 16 H Blood Urea Nitrogen 53 H Creatinine 8.56 H Est Glomerular 5 L Filtrat Rate mL/min Glucose Level 193 Calcium Level 8.3 L Bedside Glucose 197 141 Test 12/02/18 08:20 12/02/18 11:36 12/02/18 12:39 Bedside Glucose 120 115 Phosphorus Level 9.2 H Magnesium Level 1.9 Medications Medication Current Medications Dextrose (D50w Syringe) ONCE PRN IV DECREASED GLUCOSE; Start 11/29/18 at 01:30 Acetaminophen (Tylenol Liquid) 650 mg Q6H PRN PO PAIN LEVEL 1-3 OR FEVER Last administered on 11/29/18at 17:47; Admin Dose 650 MG; Start 11/29/18 at 08:30 Docusate Sodium (Colace) 100 mg Q12H PRN PO CONSTIPATION; Start 11/29/18 at 08:30 Bisacodyl (Dulcolax) 5 mg DAILY PRN PO CONSTIPATION; Start 11/29/18 at 08:30 Famotidine (Pepcid) 20 mg DAILY PO Last administered on 12/02/18 08:34; Admin Dose 20 MG; Start 11/29/18 at 09:00 Apixaban (Eliquis) 5 mg BID PO Last administered on 12/02/18 08:35; Admin Dose 5 MG; Start 11/29/18 at 09:00 Aspirin (Halfprin) 81 mg DAILY PO Last administered on 12/02/18 08:35; Admin Dose 81 MG; Start 11/29/18 at 09:00 Benazepril HCl (Lotensin) 40 mg DAILY PO Last administered on 12/01/18 08:46; Admin Dose 40 MG; Start 11/29/18 at 09:00 Calcium Acetate (Phoslo) 1,334 mg WITH MEALS PO Last administered on 12/02/18 08:35; Admin Dose 1,334 MG; Start 11/29/18 at 11:30 Carvedilol (Coreg) 6.25 mg BID PO Last administered on 12/01/18 20:53; Admin Dose 6.25 MG; Start 11/29/18 at 09:00 Levothyroxine Sodium (Synthroid) 125 mcg BEFORE BREAKFAST PO Last administered on 12/02/18 06:44; Admin Dose 125 MCG; Start 11/30/18 at 07:00 Nifedipine (Procardia Xl) 60 mg BID PO Last administered on 12/01/18 20:53; Admin Dose 60 MG; Start 11/29/18 at 09:00 Pantoprazole (Protonix Tab) 40 mg DAILY PO Last administered on 12/02/18 08:34; Admin Dose 40 MG; Start 11/29/18 at 09:00 Pentoxifylline (Trental) 400 mg DAILY PO Last administered on 12/02/18 08:34; Admin Dose 400 MG; Start 11/29/18 at 09:00 Pyridoxine HCl (Vitamin B6) 50 mg DAILY PO Last administered on 12/02/18 08:34; Admin Dose 50 MG; Start 11/29/18 at 09:00 Insulin Aspart (Novolog Insulin Pen) 5 unit AC BREAKFAST DINNER SC Last administered on 12/02/18 08:26; Admin Dose 5 UNIT; Start 11/29/18 at 17:05 Nystatin (Nystatin Cr) 1 applic BID TOP Last administered on 7/29/19at 23:12; Admin Dose 1 APPLIC; Start 11/29/18 at 12:00 Diagnostic Test (Pha) (Accu-Chek) 1 ea 02 XX Last administered on 11/30/18at 01:21; Admin Dose 1 EA; Start 11/30/18 at 02:00 Insulin Aspart (Novolog Insulin Pen) NOVOLOG *MILD* ALGORITHM WITH MEALS BEDTIME SC Last administered on 12/01/18at 17:47; Admin Dose 2 UNIT; Start 11/29/18 at 17:35 Miscellaneous Information 1 ea NOTE XX ; Start 11/29/18 at 13:00 Glucose (Glutose) 15 gm Q15M PRN PO DECREASED GLUCOSE; Start 11/29/18 at 13:00 Glucose (Glutose) 22.5 gm Q15M PRN PO DECREASED GLUCOSE; Start 11/29/18 at 13:00 Dextrose (D50w Syringe) 25 ml Q15M PRN IV DECREASED GLUCOSE; Start 11/29/18 at 13:00 Dextrose (D50w Syringe) 50 ml Q15M PRN IV DECREASED GLUCOSE; Start 11/29/18 at 13:00 Glucagon (Glucagen) 1 mg Q15M PRN IM DECREASED GLUCOSE; Start 11/29/18 at 13:00 Glucose (Glutose) 15 gm Q15M PRN BUCCAL DECREASED GLUCOSE; Start 11/29/18 at 13:00 Acetaminophen/ Hydrocodone Bitart ([place] (5/325)) 1 tab Q4H PRN PO MODERATE PAIN LEVEL 4-6 Last administered on 12/01/18at 20:51; Admin Dose 1 TAB; Start at 17:00 Morphine Sulfate (morphine) 2 mg Q3H PRN IV SEVERE PAIN LEVEL 7-10; Start 11/29/18 at 17:00 Hydralazine HCl (Apresoline) 10 mg Q4H PRN IV ELEVATED BLOOD PRESSURE; Start 11/29/18 at 23:30 Insulin Glargine (Lantus) 15 units DAILY@0800 SC Last administered on 12/02/18at 08:28; Admin Dose 15 UNITS; Start 12/02/18 at 08:00 Ondansetron HCl (Zofran Inj) 4 mg Q6H PRN IV NAUSEA AND/OR VOMITING; Start 12/01/18 at 17:00 Metoclopramide HCl (Reglan) 10 mg Q6 IV Last administered on 12/02/18at 12:42; Admin Dose 10 MG; Start 12/01/18 at 17:30 KISHA GALARZA Dec 02, 2018 14:22
[2018-12-02] MEDS ORDERED: LORAZEPAM 2 MG INJ IV ONE (14:30)
--- NOTE | 2018-12-02 14:56 | CONS ---
Assessment/Plan Assessment/Plan Hospital Course (Demo Recall) Summary Assessment and Plan: Assessment: Persistent nausea/vomiting, abdominal pain Hypertension End-stage renal disease on hemodialysis Status post uremia and hyperkalemia from missed dialysis sessions Diabetes mellitus Proximal atrial fibrillation Hypothyroidism Anxiety Plan: Continue anti-emetics Hold Eliquis tonight and in am EGD tomorrow N.p.o. after midnight Endoscopy - risks/benefits/alternatives/indications of procedure and sedation/anesthesia discussed with patient who states understading and gives informed consent to proceed. Continue PPI BID Patient seen in collaboration with Dr. Garcias CC: NEEL GARCIAS MD ; Consultation Date/Type/Reason Admit Date/Time Nov 29, 2018 at 01:40 Date of Consultation: Dec 02, 2018 Type of Consult GI Reason for Consultation Persistent nausea and vomiting Date/Time of Note DATE: 12/02/18 TIME: 14:52 Hx of Present Illness This ss a 63-year-old female with past medical history of end-stage renal disease on hemodialysis, proximal atrial fibrillation, hypertension, diabetes me llitus, chronic anemia who was admitted for abdominal pain and persistent nausea and vomiting. During hospitalization symptoms were deemed secondary to likely gastroparesis versus gastroenteritis and seems to have improved with plan to discharge patient however nausea and vomiting has returned. GIs been consulted for further evaluation. Patient states she has noted mid to upper abdominal pain not better anything in particular worse with taking medication on empty stomach. She denies at this time constipation, diarrhea, melena, hematochezia, or hematemesis. She states she has never had an upper endoscopy or colonoscopy Review of Systems: A 12 system, review was conducted and is negative except as noted in the HPI or here. Past Medical History Home Meds Active Scripts Calcium Acetate* (Phoslo*) 667 Mg Tablet, 1334 MG PO WITH MEALS for 30 Days, #180 TAB 2 Refills Prov:MICHELL,BOLATITO M. 12/01/18 [Insulin Glargine] 100 UNITS/ML SOLN No Conflict Check, 10 UNITS SC DAILY@0800 for 30 Days, #3 VIAL 2 Refills Prov:MICHELL,BOLATITO M. 12/01/18 Docusate Sodium* (Colace*) 100 Mg Capsule, 100 MG PO BID, #60 CAP 2 Refills Prov:MICHELL,BOLATITO M. 12/01/18 Psyllium Husk/Aspartame (Metamucil Sugar-Free Powder) 283 Gm Powder, 283 GM PO DAILY, #30 PACKET 3 Refills mix daily with at least 8 ounces of water Prov:KISHA AGLARZA 12/01/18 Reported Medications Pyridoxine Hcl* (Vitamin B-6*) 50 Mg Capsule, 50 MG PO DAILY, CAP 11/29/18 Pentoxifylline* (Pentoxifylline*) 400 Mg Tablet.sa, 400 MG PO DAILY, TAB 11/29/18 Pantoprazole* (Pantoprazole*) 40 Mg Tablet.dr, 40 MG PO AC BREAKFAST, TAB 11/29/18 Nifedipine* (Nifedipine ER*) 60 Mg Tablet.sa, 60 MG PO BID, TAB.SA 11/29/18 Metoprolol Tartrate* (Lopressor*) 25 Mg Tab, 25 MG PO BID, #60 TAB 11/29/18 Levothyroxine Sodium* (Levothyroxine Sodium*) 125 Mcg Tablet, 125 MCG PO BEFORE BREAKFAST, #30 TAB 11/29/18 Insulin Aspart* (Novolog Insulin Pen*) 100 Unit/Ml Soln, 5 UNIT SC WITH BREAKFAST DINNE, EA 11/29/18 Carvedilol* (Carvedilol*) 6.25 Mg Tablet, 6.25 MG PO BID, #60 TAB 11/29/18 Calcium Acetate* (Calcium Acetate*) 667 Mg Capsule, 667 MG PO WITH MEALS, #30 CAP 11/29/18 Benazepril Hcl* (Benazepril Hcl*) 40 Mg Tablet, 40 MG PO DAILY, #30 TAB 11/29/18 Aspirin* (Aspirin* EC) 81 Mg Tablet.dr, 81 MG PO DAILY, TAB 11/29/18 Apixaban* (Eliquis*) 5 Mg Tablet, 5 MG PO BID, TAB 11/29/18 Discontinued Reported Medications Apixaban* (Eliquis*) 5 Mg Tablet, 5 MG PO BID, TAB 04/15/18 Nifedipine* (Nifedipine ER*) 60 Mg Tablet.sa, 60 MG PO BID, TAB.SA 04/15/18 Levothyroxine Sodium* (Levothyroxine Sodium*) 125 Mcg Tablet, 125 MCG PO BEFORE BREAKFAST, #30 TAB 04/15/18 Pyridoxine Hcl* (Pyridoxine Hcl*) 50 Mg Tablet, 50 MG PO DAILY, TAB 11/19/17 Pentoxifylline* (Pentoxifylline*) 400 Mg Tablet.sa, 400 MG PO DAILY, TAB 11/19/17 Pantoprazole* (Protonix*) 40 Mg Tablet.dr, 40 MG PO DAILY, TAB 11/19/17 Insulin Aspart (Novolog) 100 Unit/1 Ml Cartridge, 5 UNIT SQ BID 11/19/17 Metoprolol Tartrate* (Lopressor*) 25 Mg Tablet, 25 MG PO BID, #60 TAB 11/19/17 Carvedilol* (Carvedilol*) 6.25 Mg Tablet, 6.25 MG PO BID, #60 TAB 11/19/17 Calcium Acetate* (Calcium Acetate*) 667 Mg Capsule, 1334 MG PO WITH MEALS, #60 CAP 11/19/17 Benazepril Hcl* (Benazepril Hcl*) 40 Mg Tablet, 40 MG PO DAILY, #30 TAB 11/19/17 Aspirin (Low Dose Aspirin) 81 Mg Tablet.dr, 81 MG PO DAILY, #30 TAB 11/19/17 Medications Current Medications Dextrose (D50w Syringe) ONCE PRN IV DECREASED GLUCOSE; Start 11/29/18 at 01:30 Acetaminophen (Tylenol Liquid) 650 mg Q6H PRN PO PAIN LEVEL 1-3 OR FEVER Last administered on 11/29/18at 17:47; Admin Dose 650 MG; Start 11/29/18 at 08:30 Docusate Sodium (Colace) 100 mg Q12H PRN PO CONSTIPATION; Start 11/29/18 at 08:30 Bisacodyl (Dulcolax) 5 mg DAILY PRN PO CONSTIPATION; Start 11/29/18 at 08:30 Famotidine (Pepcid) 20 mg DAILY PO Last administered on 12/02/18at 08:34; Admin Dose 20 MG; Start 11/29/18 at 09:00 Apixaban (Eliquis) 5 mg BID PO Last administered on 12/02/18at 08:35; Admin Dose 5 MG; Start 11/29/18 at 09:00 Aspirin (Halfprin) 81 mg DAILY PO Last administered on 12/02/18at 08:35; Admin Dose 81 MG; Start 11/29/18 at 09:00 Benazepril HCl (Lotensin) 40 mg DAILY PO Last administered on 12/01/18 08:46; Admin Dose 40 MG; Start 11/29/18 at 09:00 Calcium Acetate (Phoslo) 1,334 mg WITH MEALS PO Last administered on 12/02/18 08:35; Admin Dose 1,334 MG; Start 11/29/18 at 11:30 Carvedilol (Coreg) 6.25 mg BID PO Last administered on 12/01/18 20:53; Admin Dose 6.25 MG; Start 11/29/18 at 09:00 Levothyroxine Sodium (Synthroid) 125 mcg BEFORE BREAKFAST PO Last administered on 12/02/18 06:44; Admin Dose 125 MCG; Start 11/30/18 at 07:00 Nifedipine (Procardia Xl) 60 mg BID PO Last administered on 12/01/18 20:53; Admin Dose 60 MG; Start 11/29/18 at 09:00 Pentoxifylline (Trental) 400 mg DAILY PO Last administered on 12/02/18 08:34; Admin Dose 400 MG; Start 11/29/18 at 09:00 Pyridoxine HCl (Vitamin B6) 50 mg DAILY PO Last administered on 12/02/18 08:34; Admin Dose 50 MG; Start 11/29/18 at 09:00 Insulin Aspart (Novolog Insulin Pen) 5 unit AC BREAKFAST DINNER SC Last administered on 12/02/18 08:26; Admin Dose 5 UNIT; Start 11/29/18 at 17:05 Nystatin (Nystatin Cr) 1 applic BID TOP Last administered on 12/01/18 23:12; Admin Dose 1 APPLIC; Start 11/29/18 at 12:00 Diagnostic Test (Pha) (Accu-Chek) 1 ea 02 XX Last administered on 11/30/18 01:21; Admin Dose 1 EA; Start 11/30/18 at 02:00 Insulin Aspart (Novolog Insulin Pen) NOVOLOG *MILD* ALGORITHM WITH MEALS BEDTIME SC Last administered on 12/01/18 17:47; Admin Dose 2 UNIT; Start 11/29/18 at 17:35 Miscellaneous Information 1 ea NOTE XX ; Start 11/29/18 at 13:00 Glucose (Glutose) 15 gm Q15M PRN PO DECREASED GLUCOSE; Start 11/29/18 at 13:00 Glucose (Glutose) 22.5 gm Q15M PRN PO DECREASED GLUCOSE; Start 11/29/18 at 13:00 Dextrose (D50w Syringe) 25 ml Q15M PRN IV DECREASED GLUCOSE; Start 11/29/18 at 13:00 Dextrose (D50w Syringe) 50 ml Q15M PRN IV DECREASED GLUCOSE; Start 11/29/18 at 13:00 Glucagon (Glucagen) 1 mg Q15M PRN IM DECREASED GLUCOSE; Start 11/29/18 at 13:00 Glucose (Glutose) 15 gm Q15M PRN BUCCAL DECREASED GLUCOSE; Start 11/29/18 at 13:00 Acetaminophen/ Hydrocodone Bitart ([place] (5/325)) 1 tab Q4H PRN PO MODERATE PAIN LEVEL 4-6 Last administered on 12/01/18at 20:51; Admin Dose 1 TAB; Start 11/29/18 at 17:00 Morphine Sulfate (morphine) 2 mg Q3H PRN IV SEVERE PAIN LEVEL 7-10; Start 11/29/18 at 17:00 Hydralazine HCl (Apresoline) 10 mg Q4H PRN IV ELEVATED BLOOD PRESSURE; Start 11/29/18 at 23:30 Insulin Glargine (Lantus) 15 units DAILY@0800 SC Last administered on 12/02/18at 08:28; Admin Dose 15 UNITS; Start 12/02/18 at 08:00 Ondansetron HCl (Zofran Inj) 4 mg Q6H PRN IV NAUSEA AND/OR VOMITING; Start 12/01/18 at 17:00 Pantoprazole (Protonix Tab) 40 mg BID@0600,1800 PO ; Start 12/02/18 at 18:00 Clonazepam (Klonopin) 0.5 mg Q12H PO ; Start 12/02/18 at 21:00 Allergies: Coded Allergies: No Known Allergy (Unverified , 11/29/18) Social History Alcohol Use: none Smoking Status: Never smoker Drug Use: none Exam/Review of Systems Exam Vitals Vital Signs Date Temp Pulse Resp B/P (MAP) Pulse Ox O2 O2 Flow FiO2 Time Delivery Rate 12/02/18 65 14:25 12/02/18 98.4 16 135/62 94 14:24 (86) 12/02/18 Room Air 13:40 11/29/18 21 02:37 Intake and Output 12/01/18 12/01/18 12/02/18 1515:00 23:00 07:00 IntakeIntake Total 600 ml BalanceBalance 600 ml Constitutional: alert, oriented, obese Psych: no complaints, nl mood/affect Head: normocephalic, atraumatic Eyes: nl conjunctiva, nl lids ENMT: nl external ears & nose, nl lips & teeth Neck: supple, non-tender Respiratory: clear to auscultation, normal air movement Cardiovascular: regular rate and rhythm Gastrointestinal: soft, bowel sounds Genitourinary - Female: nl adnexae Extremities: normal pulses Skin: other (Dialysis access) Results Result Diagram: 12/01/18 0518 12/01/18 2155 Results 24hrs Laboratory Tests Test 12/01/18 16:05 12/01/18 17:45 12/01/18 21:55 12/01/18 23:03 Sodium Level 130 L Potassium Level 5.9 H 5.8 H Chloride Level 89 L Carbon Dioxide Level 25 Anion Gap 16 H Blood Urea Nitrogen 53 H Creatinine 8.56 H Est Glomerular 5 L Filtrat Rate mL/min Glucose Level 193 Calcium Level 8.3 L Bedside Glucose 197 141 Test 12/02/18 08:20 12/02/18 11:36 12/02/18 12:39 Bedside Glucose 120 115 Phosphorus Level 9.2 H Magnesium Level 1.9 Medications Medication Current Medications Dextrose (D50w Syringe) ONCE PRN IV DECREASED GLUCOSE; Start 11/29/18 at 01:30 Acetaminophen (Tylenol Liquid) 650 mg Q6H PRN PO PAIN LEVEL 1-3 OR FEVER Last administered on 11/29/18at 17:47; Admin Dose 650 MG; Start 11/29/18 at 08:30 Docusate Sodium (Colace) 100 mg Q12H PRN PO CONSTIPATION; Start 11/29/18 at 08:30 Bisacodyl (Dulcolax) 5 mg DAILY PRN PO CONSTIPATION; Start 11/29/18 at 08:30 Famotidine (Pepcid) 20 mg DAILY PO Last administered on 12/02/18at 08:34; Admin Dose 20 MG; Start 11/29/18 at 09:00 Apixaban (Eliquis) 5 mg BID PO Last administered on 12/02/18at 08:35; Admin Dose 5 MG; Start 11/29/18 at 09:00 Aspirin (Halfprin) 81 mg DAILY PO Last administered on 12/02/18 08:35; Admin Dose 81 MG; Start 11/29/18 at 09:00 Benazepril HCl (Lotensin) 40 mg DAILY PO Last administered on 12/01/18 08:46; Admin Dose 40 MG; Start 11/29/18 at 09:00 Calcium Acetate (Phoslo) 1,334 mg WITH MEALS PO Last administered on 12/02/18 08:35; Admin Dose 1,334 MG; Start 11/29/18 at 11:30 Carvedilol (Coreg) 6.25 mg BID PO Last administered on 12/01/18 20:53; Admin Dose 6.25 MG; Start 11/29/18 at 09:00 Levothyroxine Sodium (Synthroid) 125 mcg BEFORE BREAKFAST PO Last administered on 12/02/18 06:44; Admin Dose 125 MCG; Start 11/30/18 at 07:00 Nifedipine (Procardia Xl) 60 mg BID PO Last administered on 12/01/18 20:53; Admin Dose 60 MG; Start 11/29/18 at 09:00 Pentoxifylline (Trental) 400 mg DAILY PO Last administered on 12/02/18 08:34; Admin Dose 400 MG; Start 11/29/18 at 09:00 Pyridoxine HCl (Vitamin B6) 50 mg DAILY PO Last administered on 12/02/18 08:34; Admin Dose 50 MG; Start 11/29/18 at 09:00 Insulin Aspart (Novolog Insulin Pen) 5 unit AC BREAKFAST DINNER SC Last administered on 12/02/18 08:26; Admin Dose 5 UNIT; Start 11/29/18 at 17:05 Nystatin (Nystatin Cr) 1 applic BID TOP Last administered on 12/01/18 23:12; Admin Dose 1 APPLIC; Start 11/29/18 at 12:00 Diagnostic Test (Pha) (Accu-Chek) 1 ea 02 XX Last administered on 11/30/18 01:21; Admin Dose 1 EA; Start 11/30/18 at 02:00 Insulin Aspart (Novolog Insulin Pen) NOVOLOG *MILD* ALGORITHM WITH MEALS BEDTIME SC Last administered on 12/01/18 17:47; Admin Dose 2 UNIT; Start 11/29/18 at 17:35 Miscellaneous Information 1 ea NOTE XX ; Start 11/29/18 at 13:00 Glucose (Glutose) 15 gm Q15M PRN PO DECREASED GLUCOSE; Start 11/29/18 at 13:00 Glucose (Glutose) 22.5 gm Q15M PRN PO DECREASED GLUCOSE; Start 11/29/18 at 13:00 Dextrose (D50w Syringe) 25 ml Q15M PRN IV DECREASED GLUCOSE; Start 11/29/18 at 13:00 Dextrose (D50w Syringe) 50 ml Q15M PRN IV DECREASED GLUCOSE; Start 11/29/18 at 13:00 Glucagon (Glucagen) 1 mg Q15M PRN IM DECREASED GLUCOSE; Start 11/29/18 at 13:00 Glucose (Glutose) 15 gm Q15M PRN BUCCAL DECREASED GLUCOSE; Start 11/29/18 at 13:00 Acetaminophen/ Hydrocodone Bitart ([place] (5/325)) 1 tab Q4H PRN PO MODERATE PAIN LEVEL 4-6 Last administered on 12/01/18at 20:51; Admin Dose 1 TAB; Start 11/29/18 at 17:00 Morphine Sulfate (morphine) 2 mg Q3H PRN IV SEVERE PAIN LEVEL 7-10; Start 11/29/18 at 17:00 Hydralazine HCl (Apresoline) 10 mg Q4H PRN IV ELEVATED BLOOD PRESSURE; Start 11/29/18 at 23:30 Insulin Glargine (Lantus) 15 units DAILY@0800 SC Last administered on 12/02/18at 08:28; Admin Dose 15 UNITS; Start 12/02/18 at 08:00 Ondansetron HCl (Zofran Inj) 4 mg Q6H PRN IV NAUSEA AND/OR VOMITING; Start 12/01/18 at 17:00 Pantoprazole (Protonix Tab) 40 mg BID@0600,1800 PO ; Start 12/02/18 at 18:00 Clonazepam (Klonopin) 0.5 mg Q12H PO ; Start 12/02/18 at 21:00 TRINI MCCARTHY Dec 02, 2018 14:56
[2018-12-02] MEDS: clonAZEPAM 0.5 MG TAB PO SCH (21:36)
[2018-12-03 02:00] VITALS: BP 145/67; PULSE 66; RESP 17
[2018-12-03] MEDS: ACCU-CHEK XX SCH (02:00)
[2018-12-03] MEDS: INSULIN ASPART [NOVOLOG] 3 ML PEN SC SCH ×6 (05:00→17:13)
[2018-12-03] MEDS: PANTOPRAZOLE (EC) 40 MG TAB PO SCH ×2 (06:00→17:09)
[2018-12-03] MEDS: LEVOTHYROXINE 125 MCG TAB PO SCH (06:17)
[2018-12-03] MEDS: CALCIUM ACETATE 667 MG CAP PO SCH ×3 (07:35→17:09)
[2018-12-03 08:00] VITALS: BP 150/76; PULSE 100; RESP 18
[2018-12-03] MEDS: INSULIN GLARGINE [LANTus] (100 UNITS/ML) SYG SC SCH (08:00)
[2018-12-03] MEDS: PYRIDOXINE 50 MG TAB PO SCH (09:00)
[2018-12-03] MEDS: FAMOTIDINE 20 MG TAB PO SCH (09:00)
[2018-12-03] MEDS: PENTOXIFYLLINE (SR) 400 MG TAB PO SCH (09:00)
[2018-12-03] MEDS: BENAZEPRIL 40 MG TAB PO SCH (09:00)
[2018-12-03] MEDS: clonAZEPAM 0.5 MG TAB PO SCH (09:00)
[2018-12-03] MEDS: ASPIRIN (EC) 81 MG TAB PO SCH (09:00)
[2018-12-03] MEDS: NYSTATIN 15 GM CR TOP SCH (09:00)
[2018-12-03] MEDS: NIFEdipine (XL) 60 MG TAB PO SCH (09:00)
--- NOTE | 2018-12-03 13:13 | PN ---
Date/Time of Note Date/Time of Note DATE: 12/03/18 TIME: 13:09 Assessment/Plan VTE Prophylaxis Risk score (from Nsg)>0 risk: 3 SCD applied (from Nsg): Yes Pharmacological prophylaxis: apixaban Lines/Catheters IV Catheter Type (from Nrsg): Saline Lock Urinary Cath still in place: No Assessment/Plan Hospital Course Summary Assessment and Plan: Assessment: Persistent nausea/vomiting, abdominal pain- improved Hypertension End-stage renal disease on hemodialysis Status post uremia and hyperkalemia from missed dialysis sessions Diabetes mellitus Proximal atrial fibrillation Hypothyroidism Anxiety Plan: EGD canceled- as patient ate today She states she is feeling better n c/o n/v and wants to go home. Pt can f/u with GI for further evaluation as an out-pt Patient seen in collaboration with Dr. Garcias Subjective: Course reviewed with nursing staff Patient interviewed and examined All labs, imaging and other results reviewed The patient appears comfortable. She states she was hungry this am and ate chicken broth and a tortilla, food that was brought in by her . Patient states that she is feeling better and requesting to go home. Constitutional: alert, oriented, obese Psych: no complaints, nl mood/affect Head: normocephalic, atraumatic Eyes: nl conjunctiva, nl lids ENMT: nl external ears & nose, nl lips & teeth Neck: supple, non-tender Respiratory: clear to auscultation, normal air movement Cardiovascular: regular rate and rhythm Gastrointestinal: soft, bowel sounds Genitourinary - Female: nl adnexae Extremities: normal pulses Skin: other (Dialysis access) Result Diagram: 12/03/18 0612/03/18 0606 Results 24hrs Laboratory Tests Test 12/02/18 17:25 12/02/18 21:32 12/03/18 05:00 12/03/18 06:06 Bedside Glucose 92 156 145 White Blood Count 6.1 Red Blood Count 2.71 L Hemoglobin 8.5 L Hematocrit 26.2 L Mean Corpuscular 96.7 Volume Mean Corpuscular 31.4 Hemoglobin Mean Corpuscular 32.4 Hemoglobin Concent Red Cell 12.8 Distribution Width Platelet Count 146 Mean Platelet Volume 11.9 H Immature 0.500 H Granulocytes % Neutrophils % 74.1 Lymphocytes % 13.6 L Monocytes % 9.7 Eosinophils % 1.8 Basophils % 0.3 Nucleated Red Blood 0.0 Cells % Immature 0.030 Granulocytes # Neutrophils # 4.5 Lymphocytes # 0.8 Monocytes # 0.6 Eosinophils # 0.1 Basophils # 0.0 Nucleated Red Blood 0.0 Cells # Sodium Level 135 Potassium Level 4.6 Chloride Level 96 L Carbon Dioxide Level 29 Anion Gap 10 # Blood Urea Nitrogen 28 #H Creatinine 5.99 #H Glucose Level 134 # Calcium Level 7.9 L Phosphorus Level 6.3 #H Albumin 3.4 Test 12/03/18 08:35 12/03/18 12:54 Bedside Glucose 127 220 Exam/Review of Systems Exam Vitals Vital Signs Date Temp Pulse Resp B/P (MAP) Pulse Ox O2 O2 Flow FiO2 Time Delivery Rate 12/03/18 98.6 100 18 150/76 96 08:00 (100) 12/02/18 Room Air 13:40 Intake and Output 12/02/18 12/02/18 12/03/18 1515:00 23:00 07:00 IntakeIntake Total 600 ml OutputOutput Total 1500 ml BalanceBalance -900 ml Results Results 24hrs Laboratory Tests Test 12/02/18 17:25 12/02/18 21:32 12/03/18 05:00 12/03/18 06:06 Bedside Glucose 92 156 145 White Blood Count 6.1 Red Blood Count 2.71 L Hemoglobin 8.5 L Hematocrit 26.2 L Mean Corpuscular 96.7 Volume Mean Corpuscular 31.4 Hemoglobin Mean Corpuscular 32.4 Hemoglobin Concent Red Cell 12.8 Distribution Width Platelet Count 146 Mean Platelet Volume 11.9 H Immature 0.500 H Granulocytes % Neutrophils % 74.1 Lymphocytes % 13.6 L Monocytes % 9.7 Eosinophils % 1.8 Basophils % 0.3 Nucleated Red Blood 0.0 Cells % Immature 0.030 Granulocytes # Neutrophils # 4.5 Lymphocytes # 0.8 Monocytes # 0.6 Eosinophils # 0.1 Basophils # 0.0 Nucleated Red Blood 0.0 Cells # Sodium Level 135 Potassium Level 4.6 Chloride Level 96 L Carbon Dioxide Level 29 Anion Gap 10 # Blood Urea Nitrogen 28 #H Creatinine 5.99 #H Glucose Level 134 # Calcium Level 7.9 L Phosphorus Level 6.3 #H Albumin 3.4 Test 12/03/18 08:35 12/03/18 12:54 Bedside Glucose 127 220 Medications Medication Current Medications Dextrose (D50w Syringe) ONCE PRN IV DECREASED GLUCOSE; Start 11/29/18 at 01:30 Acetaminophen (Tylenol Liquid) 650 mg Q6H PRN PO PAIN LEVEL 1-3 OR FEVER Last administered on 11/29/18 17:47; Admin Dose 650 MG; Start 11/29/18 at 08:30 Docusate Sodium (Colace) 100 mg Q12H PRN PO CONSTIPATION; Start 11/29/18 at 08:30 Bisacodyl (Dulcolax) 5 mg DAILY PRN PO CONSTIPATION; Start 11/29/18 at 08:30 Famotidine (Pepcid) 20 mg DAILY PO Last administered on 12/02/18 08:34; Admin Dose 20 MG; Start 11/29/18 at 09:00 Apixaban (Eliquis) 5 mg BID PO Last administered on 12/02/18 08:35; Admin Dose 5 MG; Start 11/29/18 at 09:00; Status Hold Aspirin (Halfprin) 81 mg DAILY PO Last administered on 12/02/18 08:35; Admin Dose 81 MG; Start 11/29/18 at 09:00 Benazepril HCl (Lotensin) 40 mg DAILY PO Last administered on 12/01/18 08:46; Admin Dose 40 MG; Start 11/29/18 at 09:00 Calcium Acetate (Phoslo) 1,334 mg WITH MEALS PO Last administered on 12/02/18 08:35; Admin Dose 1,334 MG; Start 11/29/18 at 11:30 Carvedilol (Coreg) 6.25 mg BID PO Last administered on 12/02/18 21:37; Admin Dose 6.25 MG; Start 11/29/18 at 09:00 Levothyroxine Sodium (Synthroid) 125 mcg BEFORE BREAKFAST PO Last administered on 12/03/18 06:17; Admin Dose 125 MCG; Start 11/30/18 at 07:00 Nifedipine (Procardia Xl) 60 mg BID PO Last administered on 12/02/18 21:38; Admin Dose 60 MG; Start 11/29/18 at 09:00 Pentoxifylline (Trental) 400 mg DAILY PO Last administered on 12/02/18 08:34; Admin Dose 400 MG; Start 11/29/18 at 09:00 Pyridoxine HCl (Vitamin B6) 50 mg DAILY PO Last administered on 12/02/18 08:34; Admin Dose 50 MG; Start 11/29/18 at 09:00 Insulin Aspart (Novolog Insulin Pen) 5 unit AC BREAKFAST DINNER SC Last administered on 12/02/18 08:26; Admin Dose 5 UNIT; Start 11/29/18 at 17:05 Nystatin (Nystatin Cr) 1 applic BID TOP Last administered on 12/02/18at 21:39; Admin Dose 1 APPLIC; Start 11/29/18 at 12:00 Diagnostic Test (Pha) (Accu-Chek) 1 ea 02 XX Last administered on 11/30/18at 01:21; Admin Dose 1 EA; Start 11/30/18 at 02:00 Miscellaneous Information 1 ea NOTE XX ; Start 11/29/18 at 13:00 Glucose (Glutose) 15 gm Q15M PRN PO DECREASED GLUCOSE; Start 11/29/18 at 13:00 Glucose (Glutose) 22.5 gm Q15M PRN PO DECREASED GLUCOSE; Start 11/29/18 at 13:00 Dextrose (D50w Syringe) 25 ml Q15M PRN IV DECREASED GLUCOSE; Start 11/29/18 at 13:00 Dextrose (D50w Syringe) 50 ml Q15M PRN IV DECREASED GLUCOSE; Start 11/29/18 at 13:00 Glucagon (Glucagen) 1 mg Q15M PRN IM DECREASED GLUCOSE; Start 11/29/18 at 13:00 Glucose (Glutose) 15 gm Q15M PRN BUCCAL DECREASED GLUCOSE; Start 11/29/18 at 13:00 Acetaminophen/ Hydrocodone Bitart ([place] (5/325)) 1 tab Q4H PRN PO MODERATE PAIN LEVEL 4-6 Last administered on 12/01/18at 20:51; Admin Dose 1 TAB; Start 11/29/18 at 17:00 Morphine Sulfate (morphine) 2 mg Q3H PRN IV SEVERE PAIN LEVEL 7-10; Start 11/29/18 at 17:00 Hydralazine HCl (Apresoline) 10 mg Q4H PRN IV ELEVATED BLOOD PRESSURE; Start 11/29/18 at 23:30 Insulin Glargine (Lantus) 15 units DAILY@0800 SC Last administered on 12/02/18at 08:28; Admin Dose 15 UNITS; Start 12/02/18 at 08:00 Ondansetron HCl (Zofran Inj) 4 mg Q6H PRN IV NAUSEA AND/OR VOMITING; Start 12/01/18 at 17:00 Pantoprazole (Protonix Tab) 40 mg BID@0600,1800 PO ; Start 12/02/18 at 18:00 Clonazepam (Klonopin) 0.5 mg Q12H PO Last administered on 12/02/18at 21:36; Admin Dose 0.5 MG; Start 12/02/18 at 21:00 Insulin Aspart (Novolog Insulin Pen) NOVOLOG *MILD* ALGORI... Q4 SC ; Start 12/03/18 at 05:00 Epoetin Lico-epbx (Retacrit (Esrd)) 6,000 unit TuThSa@1700 SC ; Start 12/04/18 at 17:00; Status TRINI GALVAN Dec 03, 2018 13:13
[2018-12-03 14:00] VITALS: BP 156/76; PULSE 64; RESP 20
--- NOTE | 2018-12-03 14:45 | CONS ---
Assessment/Plan Assessment/Plan Assessment/Plan (Daily) ssessment/Plan (Daily) hypertensive emergency-BP now improved DIDNT take meds due to vommiting #2 End-stage renal disease with uremia and hyperkalemia: Secondary to missed HD. #3 nausea and vomiting #4 Diabetes #5 paroxysmal atrial fibrillation #6 morbid obesity #7 hypothyroidism #8 peripheral neuropathy Plan hd tts, HD tomorrow EGD was cancelled as patient ate dc planning cw epogen Consultation Date/Type/Reason Admit Date/Time Nov 29, 2018 at 01:40 Initial Consult Date Date/Time of Note DATE: 12/03/18 TIME: 14:43 24 HR Interval Summary Free Text/Dictation She feels better today denies any nausea vomiting Patient ate today however was scheduled for EGD Exam/Review of Systems Exam Vitals Vital Signs Date Temp Pulse Resp B/P (MAP) Pulse Ox O2 O2 Flow FiO2 Time Delivery Rate 12/03/18 98.6 100 18 150/76 96 08:00 (100) 12/02/18 Room Air 13:40 Intake and Output 12/02/18 12/02/18 12/03/18 1515:00 23:00 07:00 IntakeIntake Total 600 ml OutputOutput Total 1500 ml BalanceBalance -900 ml Exam GENERAL: The patient is awake, alert, oriented, appears to be in moderate distress secondary to pain. HEENT: Pupils equal, round, reactive to light. NECK: Supple. HEART: Regular rate and rhythm. ____. ABDOMEN: Some tenderness present in the epigastric region. Positive bowel sounds. EXTREMITIES: No clubbing, cyanosis, or edema. The patient has a left AV fistula in place with good bruit and thrill. Results Result Diagram: 12/03/18 0606 12/03/18 0606 Results 24hrs Laboratory Tests Test 12/02/18 17:25 12/02/18 21:32 12/03/18 05:00 12/03/18 06:06 Bedside Glucose 92 156 145 White Blood Count 6.1 Red Blood Count 2.71 L Hemoglobin 8.5 L Hematocrit 26.2 L Mean Corpuscular 96.7 Volume Mean Corpuscular 31.4 Hemoglobin Mean Corpuscular 32.4 Hemoglobin Concent Red Cell 12.8 Distribution Width Platelet Count 146 Mean Platelet Volume 11.9 H Immature 0.500 H Granulocytes % Neutrophils % 74.1 Lymphocytes % 13.6 L Monocytes % 9.7 Eosinophils % 1.8 Basophils % 0.3 Nucleated Red Blood 0.0 Cells % Immature 0.030 Granulocytes # Neutrophils # 4.5 Lymphocytes # 0.8 Monocytes # 0.6 Eosinophils # 0.1 Basophils # 0.0 Nucleated Red Blood 0.0 Cells # Sodium Level 135 Potassium Level 4.6 Chloride Level 96 L Carbon Dioxide Level 29 Anion Gap 10 # Blood Urea Nitrogen 28 #H Creatinine 5.99 #H Glucose Level 134 # Calcium Level 7.9 L Phosphorus Level 6.3 #H Albumin 3.4 Test 12/03/18 08:35 12/03/18 12:54 Bedside Glucose 127 220 Medications Medication Current Medications Dextrose (D50w Syringe) ONCE PRN IV DECREASED GLUCOSE; Start 11/29/18 at 01:30 Acetaminophen (Tylenol Liquid) 650 mg Q6H PRN PO PAIN LEVEL 1-3 OR FEVER Last administered on 11/29/18at 17:47; Admin Dose 650 MG; Start 11/29/18 at 08:30 Docusate Sodium (Colace) 100 mg Q12H PRN PO CONSTIPATION; Start 11/29/18 at 08:30 Bisacodyl (Dulcolax) 5 mg DAILY PRN PO CONSTIPATION; Start 11/29/18 at 08:30 Famotidine (Pepcid) 20 mg DAILY PO Last administered on 12/02/18at 08:34; Admin Dose 20 MG; Start 11/29/18 at 09:00 Apixaban (Eliquis) 5 mg BID PO Last administered on 12/02/18 08:35; Admin Dose 5 MG; Start 11/29/18 at 09:00; Status Hold Aspirin (Halfprin) 81 mg DAILY PO Last administered on 12/02/18 08:35; Admin Dose 81 MG; Start 11/29/18 at 09:00 Benazepril HCl (Lotensin) 40 mg DAILY PO Last administered on 12/01/18 08:46; Admin Dose 40 MG; Start 11/29/18 at 09:00 Calcium Acetate (Phoslo) 1,334 mg WITH MEALS PO Last administered on 12/02/18 08:35; Admin Dose 1,334 MG; Start 11/29/18 at 11:30 Carvedilol (Coreg) 6.25 mg BID PO Last administered on 12/02/18 21:37; Admin Dose 6.25 MG; Start 11/29/18 at 09:00 Levothyroxine Sodium (Synthroid) 125 mcg BEFORE BREAKFAST PO Last administered on 12/03/18 06:17; Admin Dose 125 MCG; Start 11/30/18 at 07:00 Nifedipine (Procardia Xl) 60 mg BID PO Last administered on 12/02/18 21:38; Admin Dose 60 MG; Start 11/29/18 at 09:00 Pentoxifylline (Trental) 400 mg DAILY PO Last administered on 12/02/18 08:34; Admin Dose 400 MG; Start 11/29/18 at 09:00 Pyridoxine HCl (Vitamin B6) 50 mg DAILY PO Last administered on 12/02/18 08:34; Admin Dose 50 MG; Start 11/29/18 at 09:00 Insulin Aspart (Novolog Insulin Pen) 5 unit AC BREAKFAST DINNER SC Last administered on 12/02/18 08:26; Admin Dose 5 UNIT; Start 11/29/18 at 17:05 Nystatin (Nystatin Cr) 1 applic BID TOP Last administered on 12/02/18 21:39; Admin Dose 1 APPLIC; Start 11/29/18 at 12:00 Diagnostic Test (Pha) (Accu-Chek) 1 ea 02 XX Last administered on 11/30/18at 01:21; Admin Dose 1 EA; Start 11/30/18 at 02:00 Miscellaneous Information 1 ea NOTE XX ; Start 11/29/18 at 13:00 Glucose (Glutose) 15 gm Q15M PRN PO DECREASED GLUCOSE; Start 11/29/18 at 13:00 Glucose (Glutose) 22.5 gm Q15M PRN PO DECREASED GLUCOSE; Start 11/29/18 at 13:00 Dextrose (D50w Syringe) 25 ml Q15M PRN IV DECREASED GLUCOSE; Start 11/29/18 at 13:00 Dextrose (D50w Syringe) 50 ml Q15M PRN IV DECREASED GLUCOSE; Start 11/29/18 at 13:00 Glucagon (Glucagen) 1 mg Q15M PRN IM DECREASED GLUCOSE; Start 11/29/18 at 13:00 Glucose (Glutose) 15 gm Q15M PRN BUCCAL DECREASED GLUCOSE; Start 11/29/18 at 13:00 Acetaminophen/ Hydrocodone Bitart ([place] (5/325)) 1 tab Q4H PRN PO MODERATE PAIN LEVEL 4-6 Last administered on 12/01/18at 20:51; Admin Dose 1 TAB; Start 11/29/18 at 17:00 Morphine Sulfate (morphine) 2 mg Q3H PRN IV SEVERE PAIN LEVEL 7-10; Start 11/29/18 at 17:00 Hydralazine HCl (Apresoline) 10 mg Q4H PRN IV ELEVATED BLOOD PRESSURE; Start 11/29/18 at 23:30 Insulin Glargine (Lantus) 15 units DAILY@0800 SC Last administered on 12/02/18at 08:28; Admin Dose 15 UNITS; Start 12/02/18 at 08:00 Ondansetron HCl (Zofran Inj) 4 mg Q6H PRN IV NAUSEA AND/OR VOMITING; Start 12/01/18 at 17:00 Pantoprazole (Protonix Tab) 40 mg BID@0600,1800 PO ; Start 12/02/18 at 18:00 Clonazepam (Klonopin) 0.5 mg Q12H PO Last administered on 12/02/18at 21:36; Admin Dose 0.5 MG; Start 12/02/18 at 21:00 Insulin Aspart (Novolog Insulin Pen) NOVOLOG *MILD* ALGORI... Q4 SC ; Start 12/03/18 at 05:00 Epoetin Lico-epbx (Retacrit (Esrd)) 6,000 unit TuThSa@1700 SC ; Start 12/04/18 at 17:00 JODI RODRÍGUEZ MD Dec 03, 2018 14:45
[2018-12-04] MEDS ORDERED: EPOETIN ALFA-EPBX (ESRD) 3,000 UNIT/ML VIAL SC SCH (17:00)
--- NOTE | 2018-12-12 06:45 | DS ---
Date/Time of Note Date/Time of Note DATE: 12/12/18 TIME: 06:44 Discharge Summary Admission/Discharge Info Admit Date/Time Nov 29, 2018 at 01:40 Discharge Date/Time Dec 03, 2018 at 18:40 Discharge Diagnosis 63-year-old female with a history of end-stage renal disease on hemodialysis, paroxysmal A. fib, hypertension, anemia, diabetes mellitus on insulin presenting to the ER because of abdominal pain intermittently for the last 2 days, had similar symptom previously, complains of vomiting and diarrhea. 1. Abdominal pain, nausea and vomiting likely secondary to gastroparesis versus gastroenteritis: Resolved 2. Status post hypertensive emergency secondary to missed hemodialysis: Resolved 3. Hypertension with good control on current medication 4. Stage renal disease: Continue routine hemodialysis Saturday 5. Status post uremia and hyperkalemia from missed hemodialysis: Resolved 6. Diabetes mellitus, with poor control, hemoglobin A1c of 9.4: Status post diabetic compliance counseling and medication adjustment 7. Paroxysmal atrial fibrillation on anticoagulation 8. Chronic hypothyroidism 9. Chronic peripheral neuropathy . Patient Condition: Stable Consults GI: Conrado Garcias Nephro: Mel Lebron MD . Hospital Course 63-year-old female with a past medical history of end-stage renal disease chronic atrial fibrillation diabetes, who presented to the emergency room with abdominal pain, nausea vomiting and diarrhea. Because of her symptoms, she missed her hemodialysis session and was also found to be in severe hypertensive emergency. Due to severely elevated blood pressures, she required short stent in the ICU on a nitro drip and after her blood pressures were stabilized and was transferred to the medical surgical floor. She has done well at this time, she is currently tolerating diet without any more abdominal pain nausea vomiting. Also has had no diarrhea since admission. At this time patient has been diagnosed with a short course of viral gastroenteritis versus gastroparesis from chronic renal disease, peripheral neuropathy as well as poorly controlled diabetes mellitus. She was to be discharged 2 days ago, but abd pain recurred. Hence inpatient GI consultation was obtained. Patient was to have EGD on the ay of discharge, but she declined stating she was feeling better and as such she was discharged home to followup with GI as outpatient . . Home Meds Active Scripts Calcium Acetate* (Phoslo*) 667 Mg Tablet, 1334 MG PO WITH MEALS for 30 Days, #180 TAB 2 Refills Prov:KISHA GALARZA 12/01/18 [Insulin Glargine] 100 UNITS/ML SOLN No Conflict Check, 10 UNITS SC DAILY@0800 for 30 Days, #3 VIAL 2 Refills Prov:KISHA GALARZA 12/01/18 Docusate Sodium* (Colace*) 100 Mg Capsule, 100 MG PO BID, #60 CAP 2 Refills Prov:KISHA GALARZA 12/01/18 Psyllium Husk/Aspartame (Metamucil Sugar-Free Powder) 283 Gm Powder, 283 GM PO DAILY, #30 PACKET 3 Refills mix daily with at least 8 ounces of water Prov:KISHA GALARZA. 12/01/18 Reported Medications Pyridoxine Hcl* (Vitamin B-6*) 50 Mg Capsule, 50 MG PO DAILY, CAP 11/29/18 Pentoxifylline* (Pentoxifylline*) 400 Mg Tablet.sa, 400 MG PO DAILY, TAB 11/29/18 Pantoprazole* (Pantoprazole*) 40 Mg Tablet.dr, 40 MG PO AC BREAKFAST, TAB 11/29/18 Nifedipine* (Nifedipine ER*) 60 Mg Tablet.sa, 60 MG PO BID, TAB.SA 11/29/18 Levothyroxine Sodium* (Levothyroxine Sodium*) 125 Mcg Tablet, 125 MCG PO BEFORE BREAKFAST, #30 TAB 11/29/18 Insulin Aspart* (Novolog Insulin Pen*) 100 Unit/Ml Soln, 5 UNIT SC WITH BREAKFAST DINNE, EA 11/29/18 Carvedilol* (Carvedilol*) 6.25 Mg Tablet, 6.25 MG PO BID, #60 TAB 11/29/18 Benazepril Hcl* (Benazepril Hcl*) 40 Mg Tablet, 40 MG PO DAILY, #30 TAB 11/29/18 Aspirin* (Aspirin* EC) 81 Mg Tablet.dr, 81 MG PO DAILY, TAB 11/29/18 Apixaban* (Eliquis*) 5 Mg Tablet, 5 MG PO BID, TAB 11/29/18 Follow-up Plan see dc instructions . Primary Care Provider Uriah Bennett MD Time spent on discharge: > 30 minutes KISHA GALARZAJaspal Dec 12, 2018 06:45
== END 2018-12-03 18:40 | disposition home or self-care (01) | DRG 73 ==
LOC: E/R 21:15 → ICU 11-29 01:40 → EDBD 11-29 01:40 → ICU 11-29 08:53 → PP2 11-30 15:07
PROVIDERS: ADMIT Family Medicine; ATTEND Family Medicine
DX: E11.43 Type 2 diabetes mellitus with diabetic autonomic (poly)neuropathy (principal); N18.6 End stage renal disease; I16.1 Hypertensive emergency; I12.0 Hypertensive chronic kidney disease with stage 5 chronic kidney disease or end stage renal disease; A08.4 Viral intestinal infection, unspecified; E87.70 Fluid overload, unspecified; E87.5 Hyperkalemia; Z68.36 Body mass index [BMI] 36.0-36.9, adult; E66.01 Morbid (severe) obesity due to excess calories; K31.84 Gastroparesis; E03.9 Hypothyroidism, unspecified; E11.22 Type 2 diabetes mellitus with diabetic chronic kidney disease; I48.0 Paroxysmal atrial fibrillation; E11.42 Type 2 diabetes mellitus with diabetic polyneuropathy; K21.9 Gastro-esophageal reflux disease without esophagitis; E11.65 Type 2 diabetes mellitus with hyperglycemia; Z79.82 Long term (current) use of aspirin; Z79.01 Long term (current) use of anticoagulants; Z99.2 Dependence on renal dialysis
CPT/HCPCS: 36415; 71045; 74176; 76705; 80048; 80053; 80069; 82962; 83036; 83690; 83735; 84100; 84132; 85025; 87340; 90935; 93005; 94664; 96374; 96375; J0360; J0610; J1815; J2060; J2270; J2405; J2765

== ENCOUNTER 2019-01-15 20:53 | Inpatient (IN) | payer OTHER, MEDICAID ==
[~2019-01-15] VITALS: Ht 160 cm; Wt 94.6 kg
[~2019-01-15 20:53] MED LIST changes: -ASPI81TA52 PO; -CALC667C PO; -INSU100C3 SQ; +LANT3I SC; +METO-335 PO; -METO-448 PO; -METO25TA4 PO; +NIFE60TA2 PO; -PANT40TA3 PO; +PENT400T12 PO; -PENT400T9 PO; -PYRI50TA14 PO; +[UNRECOGNIZED DRUG - CODE] MC
[2019-01-15] MEDS ORDERED: DILTIAZEM 25 MG INJ IV ONE ×2 (21:30→22:30)
[2019-01-15] MEDS ORDERED: FAMOTIDINE 20 MG TAB PO ONE (22:00)
[2019-01-15] MEDS ORDERED: ASPIRIN 81 MG TAB PO ONE (22:00)
[2019-01-15] MEDS ORDERED: NIFEdipine (XL) 60 MG TAB PO ONE (22:00)
[2019-01-15] MEDS ORDERED: AL HYDROX/MG HYDROX/SIMETH 30 ML CUP PO ONE (22:00)
[2019-01-15] MEDS ORDERED: ACETAMINOPHEN 325 MG TAB PO PRN (22:30)
[2019-01-15] MEDS ORDERED: ONDANSETRON 4 MG INJ IV PRN (22:30)
[2019-01-16] VITALS (8 sets, daily range): BP systolic 114–219; BP diastolic 54–90; PULSE 58–81; RESP 18–20; Ht 160 cm; Wt 94.6 kg
[2019-01-16] MEDS ORDERED: NITROGLYCERIN (SL) 0.4 MG TAB SL PRN (01:00)
[2019-01-16] MEDS ORDERED: morphine 2 MG INJ IV PRN (01:00)
[2019-01-16] MEDS ORDERED: ACETAMINOPHEN 325 MG TAB PO PRN (01:00)
[2019-01-16] MEDS ORDERED: NACL 0.9% 3 ML SYG IV SCH (01:00)
[2019-01-16] MEDS ORDERED: hydrALAzine 20 MG INJ IV ONE (01:00)
[2019-01-16] MEDS: ONDANSETRON 4 MG INJ IV PRN (01:43)
[2019-01-16] MEDS ORDERED: GLUCOSE GEL 15 GRAM TUBE BUCCAL PRN (02:30)
[2019-01-16] MEDS ORDERED: GLUCAGON 1 MG INJ IM PRN (02:30)
[2019-01-16] MEDS ORDERED: GLUCOSE GEL 15 GRAM TUBE PO PRN ×2 (02:30)
[2019-01-16] MEDS ORDERED: DEXTROSE 50% 50 ML SYRINGE IV PRN ×2 (02:30)
[2019-01-16] MEDS: ACCU-CHEK XX SCH (02:47)
[2019-01-16] MEDS: LEVOTHYROXINE 125 MCG TAB PO SCH (06:45)
[2019-01-16] MEDS: ASPIRIN 81 MG TAB PO SCH (08:14)
[2019-01-16] MEDS: PENTOXIFYLLINE (SR) 400 MG TAB PO SCH (08:14)
[2019-01-16] MEDS: INSULIN ASPART [NOVOLOG] 3 ML PEN SC SCH ×6 (08:18→20:37)
[2019-01-16] MEDS: HEPARIN 5,000 UNIT/1 ML VIAL SC SCH ×2 (08:18→20:38)
[2019-01-16] MEDS ORDERED: BENAZEPRIL 40 MG TAB PO SCH (09:00)
[2019-01-16] MEDS ORDERED: DILTIAZEM 25 MG INJ IV PRN (10:30)
[2019-01-16] MEDS: APIXABAN 5 MG TABLET PO SCH ×2 (12:09→20:22)
[2019-01-16] MEDS: INSULIN GLARGINE [LANTus] (100 UNITS/ML) SYG SC SCH (12:14)
[2019-01-16] MEDS: POLYETHYLENE GLYCOL 17 GM PACKET PO SCH (20:23)
[2019-01-16] MEDS: METOPROLOL 25 MG TAB PO SCH (20:38)
[2019-01-16] MEDS ORDERED: ALBUMIN HUMAN 25% 100 ML IV PRN (23:30)
[2019-01-16] MEDS ORDERED: SODIUM CHLORIDE 0.9% 1L BAG IV PRN (23:30)
[2019-01-17] VITALS (20 sets, daily range): BP systolic 140–188; BP diastolic 57–80; PULSE 53–66; RESP 18–21
[2019-01-17] MEDS: ACCU-CHEK XX SCH (01:56)
[2019-01-17] MEDS: LEVOTHYROXINE 125 MCG TAB PO SCH (06:11)
[2019-01-17] MEDS: METOPROLOL 25 MG TAB PO SCH ×3 (06:33→20:31)
[2019-01-17] MEDS: INSULIN ASPART [NOVOLOG] 3 ML PEN SC SCH ×7 (08:03→20:34)
[2019-01-17] MEDS: APIXABAN 5 MG TABLET PO SCH ×2 (08:06→20:30)
[2019-01-17] MEDS: ASPIRIN 81 MG TAB PO SCH (08:06)
[2019-01-17] MEDS: PENTOXIFYLLINE (SR) 400 MG TAB PO SCH (08:06)
[2019-01-17] MEDS: BENAZEPRIL 20 MG TAB PO SCH (08:07)
[2019-01-17] MEDS: HEPARIN 5,000 UNIT/1 ML VIAL SC SCH ×2 (08:15→20:37)
[2019-01-17] MEDS: INSULIN GLARGINE [LANTus] (100 UNITS/ML) SYG SC SCH (08:16)
[2019-01-17] MEDS: ONDANSETRON 4 MG INJ IV PRN (12:00)
[2019-01-17] MEDS: hydrALAzine 20 MG INJ IV PRN ×2 (17:19→20:31)
[2019-01-17] MEDS: POLYETHYLENE GLYCOL 17 GM PACKET PO SCH (20:31)
[2019-01-18] MEDS: ACCU-CHEK XX SCH (02:00)
[2019-01-18 03:40] VITALS: BP 184/77; PULSE 67; RESP 21
[2019-01-18] MEDS: hydrALAzine 20 MG INJ IV PRN ×2 (04:58→15:35)
[2019-01-18] MEDS: LEVOTHYROXINE 125 MCG TAB PO SCH (06:41)
[2019-01-18 07:20] VITALS: BP 137/78; PULSE 61; RESP 17
[2019-01-18] MEDS: HEPARIN 5,000 UNIT/1 ML VIAL SC SCH ×2 (07:54→20:20)
[2019-01-18] MEDS: APIXABAN 5 MG TABLET PO SCH ×2 (08:15→20:17)
[2019-01-18] MEDS: PENTOXIFYLLINE (SR) 400 MG TAB PO SCH (08:15)
[2019-01-18] MEDS: BENAZEPRIL 20 MG TAB PO SCH (08:16)
[2019-01-18] MEDS: METOPROLOL 25 MG TAB PO SCH ×2 (08:17→20:18)
[2019-01-18] MEDS: INSULIN GLARGINE [LANTus] (100 UNITS/ML) SYG SC SCH (08:28)
[2019-01-18] MEDS: INSULIN ASPART [NOVOLOG] 3 ML PEN SC SCH ×7 (08:28→20:18)
[2019-01-18] MEDS ORDERED: AMLODIPINE 5 MG TAB PO SCH (09:00)
[2019-01-18] MEDS ORDERED: MAGNESIUM CITRATE 300 ML BTL PO ONE (10:00)
[2019-01-18] MEDS ORDERED: LACTULOSE 30ML CUP PO ONE (10:00)
[2019-01-18] MEDS: DOCUSATE SODIUM 100 MG CAP PO SCH ×2 (10:01→20:18)
[2019-01-18 11:32] VITALS: BP 171/76; PULSE 67; RESP 17
[2019-01-18] MEDS ORDERED: AMLODIPINE 5 MG TAB PO ONE (12:30)
[2019-01-18 15:19] VITALS: BP 170/79; PULSE 60; RESP 19
[2019-01-18] MEDS: ONDANSETRON 4 MG INJ IV PRN (15:35)
[2019-01-18 20:00] VITALS: BP 151/69; PULSE 63; RESP 18
[2019-01-18] MEDS: POLYETHYLENE GLYCOL 17 GM PACKET PO SCH (20:17)
[2019-01-19] VITALS (7 sets, daily range): BP systolic 120–170; BP diastolic 56–77; PULSE 51–66; RESP 16–20
[2019-01-19] MEDS: ACCU-CHEK XX SCH (02:00)
[2019-01-19] MEDS: LEVOTHYROXINE 125 MCG TAB PO SCH (06:02)
[2019-01-19] MEDS: INSULIN ASPART [NOVOLOG] 3 ML PEN SC SCH ×7 (08:00→20:19)
[2019-01-19] MEDS: INSULIN GLARGINE [LANTus] (100 UNITS/ML) SYG SC SCH (08:00)
[2019-01-19] MEDS: HEPARIN 5,000 UNIT/1 ML VIAL SC SCH ×2 (09:00→20:11)
[2019-01-19] MEDS: APIXABAN 5 MG TABLET PO SCH ×2 (09:53→20:12)
[2019-01-19] MEDS: BENAZEPRIL 20 MG TAB PO SCH (09:53)
[2019-01-19] MEDS: DOCUSATE SODIUM 100 MG CAP PO SCH ×2 (09:53→20:12)
[2019-01-19] MEDS: METOPROLOL 25 MG TAB PO SCH (09:54)
[2019-01-19] MEDS: AMLODIPINE 10 MG TAB PO SCH (09:54)
[2019-01-19] MEDS: PENTOXIFYLLINE (SR) 400 MG TAB PO SCH (09:54)
[2019-01-19] MEDS: hydrALAzine 20 MG INJ IV PRN (12:05)
[2019-01-19] MEDS: POLYETHYLENE GLYCOL 17 GM PACKET PO SCH (20:12)
[2019-01-20] VITALS (18 sets, daily range): BP systolic 147–185; BP diastolic 60–85; PULSE 56–67; RESP 17–18
[2019-01-20] MEDS: ACCU-CHEK XX SCH (01:57)
[2019-01-20] MEDS: LEVOTHYROXINE 125 MCG TAB PO SCH (05:48)
[2019-01-20] MEDS: INSULIN ASPART [NOVOLOG] 3 ML PEN SC SCH ×6 (08:00→17:12)
[2019-01-20] MEDS: INSULIN GLARGINE [LANTus] (100 UNITS/ML) SYG SC SCH (08:00)
[2019-01-20] MEDS: APIXABAN 5 MG TABLET PO SCH (08:06)
[2019-01-20] MEDS: PENTOXIFYLLINE (SR) 400 MG TAB PO SCH (08:06)
[2019-01-20] MEDS: HEPARIN 5,000 UNIT/1 ML VIAL SC SCH (08:06)
[2019-01-20] MEDS: DOCUSATE SODIUM 100 MG CAP PO SCH (08:06)
[2019-01-20] MEDS: METOPROLOL (XL) 25 MG TAB PO SCH ×3 (08:10→14:46)
[2019-01-20] MEDS: AMLODIPINE 10 MG TAB PO SCH ×3 (08:10→14:45)
[2019-01-20] MEDS: BENAZEPRIL 20 MG TAB PO SCH ×3 (08:11→14:45)
[2019-01-20] MEDS: hydrALAzine 20 MG INJ IV PRN (14:03)
[2019-01-20] MEDS ORDERED: NIFEdipine (XL) 60 MG TAB PO SCH (21:00)
== END 2019-01-20 18:51 | disposition home health service (06) | DRG 308 ==
LOC: E/R 20:53 → 6WM 22:16 → CANRESERV 23:21
PROVIDERS: ADMIT Internal Medicine; ATTEND Internal Medicine
PROC: 5A1D70Z Performance of Urinary Filtration, Intermittent, Less than 6 Hours Per Day (ICD-10-PCS; principal; 2019-01-15)
DX: I48.0 Paroxysmal atrial fibrillation (principal); N18.6 End stage renal disease; I12.0 Hypertensive chronic kidney disease with stage 5 chronic kidney disease or end stage renal disease; E11.22 Type 2 diabetes mellitus with diabetic chronic kidney disease; Z99.2 Dependence on renal dialysis; E66.01 Morbid (severe) obesity due to excess calories; Z68.36 Body mass index [BMI] 36.0-36.9, adult; E03.9 Hypothyroidism, unspecified; E11.51 Type 2 diabetes mellitus with diabetic peripheral angiopathy without gangrene; Z91.14 Patient's other noncompliance with medication regimen
CPT/HCPCS: 36415; 71045; 80048; 80053; 80061; 82550; 82553; 82962; 83036; 83735; 84100; 84436; 84443; 84479; 84484; 85025; 87340; 90935; 93005; 96374; J0360; J1644; J1815; J2270; J2405

== ENCOUNTER 2019-01-21 18:25 | Emergency (ER) | payer OTHER, MEDICAID ==
[~2019-01-21] VITALS: Ht 162.6 cm; Wt 93.8 kg
[~2019-01-21 18:25] MED LIST changes: -ASPI-817 PO; -CALC667T2 PO; -CARV6.2579 PO; -Insulin Glargine SC; -NIFE60TA18 PO; -PANT40TA4 PO; -PSYL283P27 PO; -PYRI50CA PO
[2019-01-21 18:36] VITALS: Ht 162.6 cm; Wt 93.8 kg
[2019-01-21] MEDS ORDERED: LORAZEPAM 2 MG INJ IV ONE (20:00)
[2019-01-21 21:22] VITALS: BP 141/89; PULSE 77; RESP 16
== END 2019-01-21 21:25 | disposition home or self-care (01) ==
LOC: E/R 18:25
DX: R42 Dizziness and giddiness (principal); I12.0 Hypertensive chronic kidney disease with stage 5 chronic kidney disease or end stage renal disease; N18.6 End stage renal disease; T46.1X5A Adverse effect of calcium-channel blockers, initial encounter; E11.22 Type 2 diabetes mellitus with diabetic chronic kidney disease; Z79.01 Long term (current) use of anticoagulants; Z79.4 Long term (current) use of insulin; Z99.2 Dependence on renal dialysis
CPT/HCPCS: 36415; 80048; 85025; 96374; 99284; J2060